=== PATIENT | male | born 1995 | race Two or more races ===

== ENCOUNTER 2020-01-12 08:51 | Outpatient (RCR) | payer OTHER, SELFPAY | END 2020-05-09 09:37 | disposition other institution (70) | LOC: HO.PTWFD 08:51 | PROVIDERS: PCP Hospitalist; Visit Provider Nurse Practitioner Family | DX: M54.5 Low back pain (principal) | CPT/HCPCS: 97110; 97112 ==

== ENCOUNTER 2020-01-13 22:11 | Emergency (ER) | payer OTHER, SELFPAY ==
[2020-01-13 22:29] VITALS: BP 141/87; PULSE 89; RESP 16; TEMP 37.6; O2SAT 98; BMI 37.5
[2020-01-13 23:25] VITALS: BP 146/89; PULSE 85; RESP 16; O2SAT 97
--- NOTE | 2020-01-13 23:43 | ED.NEUROSD ---
HPI - Neuro Symptoms/Deficit General Chief Complaint: Neuro Symptoms/Deficit Stated Complaint: numbness of arm Time Seen by Provider: 01/13/20 23:31 Source: patient Mode of arrival: ambulatory History of Present Illness HPI Narrative: patient states that dizziness with movement. Bilateral hand numbness and sweating. Onset (ago): hour(s) ( 2 hours) Timing confirmed by: spouse Severity: mild Exacerbating factors: none Related Data Previous Rx's Medication Instructions Recorded meclizine 25 mg PO DAILY PRN #10 tab 01/13/20 Allergies Allergy/AdvReac Type Severity Reaction Status Date / Time penicillin V Allergy Unknown rash Verified 01/13/20 22:29 Penicillins [PENICILLINS] Allergy Unknown RASH Verified 01/13/20 22:29 Review of Systems Review of Systems: Constitutional : No Weight loss, No Fever, No Chills, No Night Sweats, No Fatigue, No Malaise ENT/Mouth : No Hearing loss, No Ear Pain, No Nasal Congestion, No Sinus Pain, No Hoarseness, No sore throat, No Rhinorrhea, No Swallowing Difficulty Eyes: No Eye Pain, No Swelling, No Redness, No Foreign Body, No Discharge, No Vision Changes Cardiovascular : No Chest Pain, No SOB, No Dyspnea on Exertion, No Orthopnea, No Edema, No Palpitations Respiratory : No Cough, No Sputum, No Wheezing, No Smoke Exposure, No Dyspnea Gastrointestinal : No Nausea, No Vomiting, No Diarrhea, No Constipation, No abdominal Pain, No Hematochezia, No Melena Genitourinary : no irregular bleeding, No Dysuria, No Urinary Frequency, No Hematuria, No Urinary Incontinence, No Urgency, No Flank Pain, No Urinary Flow Changes, No Hesitancy Musculoskeletal : No joint pain, No Myalgias, No Joint Swelling Skin : No Skin Lesions, No rash Neuro : No Weakness, No Numbness, No current Paresthesias, No Loss of Consciousness, No Dizziness, No Headache Psych : No Anxiety/Panic, No Depression, No SI/HI/AH/VH, No Social Issues, Heme/Lymph: No Bruising, No Bleeding,No Lymphadenopathy Endocrine : No Polyuria, No Polydipsia, No Temperature Intolerance Yes all other systems are reviewed and are negative [facility] Past Medical History Attestation statement: The following information was validated with the patient. Medical History Acute Crohn's disease Arthritis Depression Eczema Scoliosis Family History Family History (Updated 01/13/20 @ 23:50 by Ata Baer DO) Other Anemia Social History Social History Alcohol intake: current Alcohol intake frequency: a few times a month Smoking Status: Never smoker Use of substances other than those prescribed or required for medical reasons: No Advance Directives: No Advance Directives Information Provided: No Physical Exam Vital Signs and I&O and Narrative: Vital Signs and I&O: Vital Signs Temp 99.6 F 01/13/20 22:29 Pulse 85 01/13/20 23:25 Resp 16 01/13/20 23:25 BP 146/89 H 01/13/20 23:25 Pulse Ox 97 01/13/20 23:25 Intake & Output 01/13/20 01/13/20 01/14/20 06:59 18:59 06:59 Weight 136.078 kg Body Mass Index 37.5 vital signs reviewed Const: Other: Appearance: Alert. Oriented X3. No acute distress. Eyes: Pupils equal, round and reactive to light. ENT: Pharynx normal. Neck: Normal inspection. Neck supple. CVS: Normal heart rate and rhythm. Pulses normal. Respiratory: No respiratory distress. Breath sounds normal. Abdomen: Soft and nontender. Skin: Skin warm and dry. Normal skin color. Normal skin turgor. Extremities: No lower extremity edema. No lower extremity edema. Neuro: Oriented X 3. No motor deficit. No sensory deficit. bilateral horizontal nystagmus General: cooperative and healthy appearing Course Reevaluation(s) Reevaluation #1: patient with positional dizziness, vertigo while in the emergency department. Will treat with p.o. meclizine. Neuro exam benign except for nystagmus. Patient low risk for brain mass Discharge Plan Discharge Clinical Impression: Benign positional vertigo Qualifiers: Laterality: bilateral Qualified Code(s): H81.13 - Benign paroxysmal vertigo, bilateral Patient Disposition: Home, Self-Care Instructions: Benign Paroxysmal Positional Vertigo (ED) Additional Instructions: Thank you for visiting the emergency department today. If your symptoms worsen or do not resolve completely please return to the emergency department immediately or call 911. if he have any questions please call your primary care physician Prescriptions: New meclizine 25 mg tablet 25 mg PO DAILY PRN (Reason: dizziness) Qty: 10 RF: 0 Referrals: Shakira Higgins NP [Primary Care Provider] - 2 days Interventions: ED Discharge Assessment Last Done: 01/14/20 00:15 Discharge Date/Time: 01/14/20 00:16
[2020-01-14] MEDS: Meclizine HCl 25 MG TABLET PO (00:13)
--- NOTE | 2020-01-14 00:15 | PC.NURSE ---
pt medicated with meclizine as charted, pt aox3, skin wd, resp reg and even, ambulating with steady gait
== END 2020-01-14 00:16 | disposition home or self-care (01) ==
PROVIDERS: Emergency Provider Emergency Medicine; PCP Hospitalist
DX: H81.13 Benign paroxysmal vertigo, bilateral (principal); K50.90 Crohn's disease, unspecified, without complications
CPT/HCPCS: 99283; 99284

== ENCOUNTER 2020-02-27 17:29 | Outpatient (REF) | payer OTHER, SELFPAY | END 2020-02-27 17:30 | disposition home or self-care (01) | LOC: HO.LAB 17:29 | PROVIDERS: Visit Provider Internal Medicine | DX: Z20.828 Contact with and (suspected) exposure to other viral communicable diseases (principal) | CPT/HCPCS: C9803; U0003 ==

== ENCOUNTER 2020-06-05 12:26 | Emergency (ER) | payer OTHER, SELFPAY ==
--- NOTE | ~2020-06-05 | US_ITS ---
EXAMINATION: US SCROTUM CLINICAL INFORMATION: Testicular pain, rule out torsion. COMPARISON: None TECHNIQUE: A sonogram of the scrotum was performed assessing jacobo-scale appearance and color Doppler flow. Spectral Doppler analysis of the arterial and venous flow were performed in the testes bilaterally. FINDINGS: RIGHT: Right testicle measures 4.6 x 2.5 x 3.1 cm, volume 18.5 mL. No focal testicular parenchymal lesions are visualized. The appendix testis is incidentally noted. Spectral Doppler analysis of the arterial and venous flow is normal in the right testis. Right epididymal head is normal in size. No right hydrocele or varicocele is seen. Right epididymal Doppler flow is normal. LEFT: Left testicle measures 4.7 x 2.3 x 3.3 cm, volume 18.8 mL. No focal testicular parenchymal lesions are visualized. The appendix testis is incidentally noted. Spectral Doppler analysis of the arterial and venous flow is normal in the left testis. Left epididymal head is normal in size. There is apparent 3 mm epididymal head cysts. No left hydrocele or varicocele is seen. Left epididymal Doppler flow is normal. US/US scrotum doppler IMPRESSION: Negative examination. No findings to suggest testicular torsion.
--- NOTE | ~2020-06-05 | US_ITS ---
EXAMINATION: US SCROTUM CLINICAL INFORMATION: Testicular pain, rule out torsion. COMPARISON: None TECHNIQUE: A sonogram of the scrotum was performed assessing jacobo-scale appearance and color Doppler flow. Spectral Doppler analysis of the arterial and venous flow were performed in the testes bilaterally. FINDINGS: RIGHT: Right testicle measures 4.6 x 2.5 x 3.1 cm, volume 18.5 mL. No focal testicular parenchymal lesions are visualized. The appendix testis is incidentally noted. Spectral Doppler analysis of the arterial and venous flow is normal in the right testis. Right epididymal head is normal in size. No right hydrocele or varicocele is seen. Right epididymal Doppler flow is normal. LEFT: Left testicle measures 4.7 x 2.3 x 3.3 cm, volume 18.8 mL. No focal testicular parenchymal lesions are visualized. The appendix testis is incidentally noted. Spectral Doppler analysis of the arterial and venous flow is normal in the left testis. Left epididymal head is normal in size. There is apparent 3 mm epididymal head cysts. No left hydrocele or varicocele is seen. Left epididymal Doppler flow is normal. US/US scrotum IMPRESSION: Negative examination. No findings to suggest testicular torsion.
[2020-06-05 12:37] VITALS: BP 144/96; PULSE 83; RESP 16; TEMP 36.3; O2SAT 98; BMI 39.9
--- NOTE | 2020-06-05 12:47 | ED.MALEGU ---
HPI - Male Genitourinary General Chief complaint: Urogenital-Male <Tang Pham NP - Last Filed: 06/05/20 15:08> Stated complaint: TESTICLE PAIN <Tang Pham NP - Last Filed: 06/05/20 15:08> Time Seen by Provider: 06/05/20 12:32 <Tang Pham NP - Last Filed: 06/05/20 15:08> Source: patient <Tang Pham NP - Last Filed: 06/05/20 15:08> Mode of arrival: ambulatory <Tang Pham NP - Last Filed: 06/05/20 15:08> Limitations: no limitations <Tang Pham NP - Last Filed: 06/05/20 15:08> History of Present Illness HPI Narrative: 24-year-old male with below noted past medical history including history of Crohn's disease, arthritis of bilateral knees, depression, eczema, scoliosis presenting with right testicular pain ongoing for the past 1 week. Denies any injury. No rash. No penile discharge. No concern for STI. No swelling. <Tang Pham NP - Last Filed: 06/05/20 15:08> MD Complaint: testicle pain <Tang Pham NP - Last Filed: 06/05/20 15:08> Onset (ago): week(s) (1 weeks ) <Tang Pham NP - Last Filed: 06/05/20 15:08> Duration: constant <Tang Pham NP - Last Filed: 06/05/20 15:08> Quality: aching <Tang Pham NP - Last Filed: 06/05/20 15:08> Exacerbating factors: none <Tang Pham NP - Last Filed: 06/05/20 15:08> Associated symptoms: Reports denies other symptoms <Tang Pham NP - Last Filed: 06/05/20 15:08> Related Data Sexually active: No <Tang Pham NP - Last Filed: 06/05/20 15:08> Home medications: Previous Rx's Medication Instructions Recorded meclizine 25 mg PO DAILY PRN #10 tab 01/13/20 cyclobenzaprine 7.5 mg tablet 7.5 mg PO TID PRN 30 Days #90 tab 01/23/20 naproxen 500 mg tablet 500 mg PO BID PRN 30 Days #90 tab 01/23/20 doxycycline hyclate 100 mg PO BID 7 Days #14 tab 06/05/20 naproxen 500 mg PO BID PRN #14 tab 06/05/20 meloxicam 15 mg tablet 15 mg PO DAILY 30 Days #30 tab 06/21/20 <Tang Pham NP - Last Filed: 06/05/20 15:08> Allergies/Adverse reactions: Allergies Allergy/AdvReac Type Severity Reaction Status Date / Time penicillin V Allergy Unknown rash Verified 06/07/20 14:03 <Tang Pham NP - Last Filed: 06/05/20 15:08> Review of Systems Review of Systems: Constitutional: No Weight loss, No Fever, No Chills, No Night Sweats, No Fatigue, No Malaise ENT/Mouth: No Hearing loss, No Ear Pain, No Nasal Congestion, No Sinus Pain, No Hoarseness, No sore throat, No Rhinorrhea, No Swallowing Difficulty Eyes: No Eye Pain, No Swelling, No Redness, No Foreign Body, No Discharge, No Vision Changes Cardiovascular: No Chest Pain, No SOB, No Dyspnea on Exertion, No Orthopnea, No Edema, No Palpitations Respiratory: No Cough, No Sputum, No Wheezing, No Dyspnea Gastrointestinal: No Nausea, No Vomiting, No Diarrhea, No Constipation, No abdominal Pain, No Hematochezia, No Melena Genitourinary: No Dysuria, No Urinary Frequency, No Hematuria, No Urinary Incontinence, No Urgency, No Flank Pain, No Urinary Flow Changes, No Hesitancy, right testicular pain as noted per HPI Musculoskeletal: No joint pain, No Myalgias, No Joint Swelling Skin: No Skin Lesions, No rash Neuro: No Weakness, No Numbness, No Paresthesias, No Loss of Consciousness, No Dizziness, No Headache Psych: No Social Issues Heme/Lymph: No Bruising, No Bleeding,No Lymphadenopathy Endocrine: No Polyuria, No Polydipsia, No Temperature Intolerance <Tang Pahm NP - Last Filed: 06/05/20 15:08> Yes all other systems are reviewed and are negative <Tang Pham NP - Last Filed: 06/05/20 15:08> [facility] Past Medical History Medical History: Medical History Acute Crohn's disease Arthritis Depression Eczema Scoliosis <Tang Pham NP - Last Filed: 06/05/20 15:08> Surgical History: Surgical History History of arthroscopy of both knees <Tang Pham NP - Last Filed: 06/05/20 15:08> Family History Family History: Family History Father No problems noted. Mother Hypertension Maternal Grandfather Diabetes Stroke Other Anemia <Tang Pham NP - Last Filed: 06/05/20 15:08> Social History Social History: Social History Alcohol intake: current Alcohol intake frequency: does not drink Smoking Status: Never smoker <Tang Pham NP - Last Filed: 06/05/20 15:08> Physical Exam Vital Signs: Vital Signs: Last Vital Signs Temp 97.3 F 06/05/20 12:37 Pulse 83 06/05/20 12:37 Resp 16 06/05/20 12:37 BP 144/96 H 06/05/20 12:37 Pulse Ox 98 06/05/20 12:37 Body Mass Index 39.9 Reviewed <Tang Pham NP - Last Filed: 06/05/20 15:08> Vital Signs: Last Vital Signs Temp 97.3 F 06/05/20 12:37 Pulse 83 06/05/20 12:37 Resp 16 06/05/20 12:37 BP 144/96 H 06/05/20 12:37 Pulse Ox 98 06/05/20 12:37 Body Mass Index 39.9 <Jose Rafael Lehman MD - Last Filed: 06/25/20 11:00> Const: General: cooperative and healthy appearing; No acute distress or intoxicated appearing <Tang Pham NP - Last Filed: 06/05/20 15:08> Nutritional Appearance: average body habitus <Tang Pham NP - Last Filed: 06/05/20 15:08> Orientation/consciousness: patient oriented x3 <Tang Pham NP - Last Filed: 06/05/20 15:08> HENMT: Head: Yes normal to inspection <[facility] Pham - Last Filed: 06/05/20 15:08> Ears: hearing grossly normal bilaterally [facility] - Last Filed: 06/05/20 15:08> Eyes: General: appearance normal, both eyes and all related structures <[facility] Pham - Last Filed: 06/05/20 15:08> Visual Weiss: normal visual weiss by confrontation <[facility] - Last Filed: 06/05/20 15:08> Neck: Neck: Yes normal visual inspection, No positive Brudzinski's sign, No positive Kernig's sign and No tender <[facility] - Last Filed: 06/05/20 15:08> Thyroid: Thyroid normal [facility] Last Filed: 06/05/20 15:08> Chest: Chest palpation & inspection: normal inspection of the chest <[facility] - Last Filed: 06/05/20 15:08> Resp: Effort & Inspection: normal respiratory effort [facility] Last Filed: 06/05/20 15:08> Cardio: Jugular venous distension: no JVD [facility] - Last Filed: 06/05/20 15:08> Rhythm: regular rhythm [facility] Last Filed: 06/05/20 15:08> Heart sounds: S1 normal heart sound present and S2 normal heart sound present <[facility] - Last Filed: 06/05/20 15:08> GI: Inspection: Yes normal to inspection <[facility] - Last Filed: 06/05/20 15:08> Percussion: Yes normal to percussion <[facility] - Last Filed: 06/05/20 15:08> Auscultation: normal bowel sounds <[facility] - Last Filed: 06/05/20 15:08> : General: Yes no CVA tenderness <[facility] - Last Filed: 06/05/20 15:08> Male General Exam: Yes normal external exam <Tangvalorie Pham NP - Last Filed: 06/05/20 15:08> Penis: normal penis <Tangvalorie Pham NP - Last Filed: 06/05/20 15:08> Scrotum: scrotum normal <Tang Pham NP - Last Filed: 06/05/20 15:08> Testes: epididymal tenderness (Very mild) on the right, no testicular swelling, no testicular tenderness, normal testicular lie and No testicular atrophy <Tang Pham NP - Last Filed: 06/05/20 15:08> Back/Spine/Pelvis: Back: no CVA tenderness <Tang Pham NP - Last Filed: 06/05/20 15:08> Skin: General skin exam: no rashes or lesions noted <Tang Pham NP - Last Filed: 06/05/20 15:08> Neuro: General: patient oriented x3 <Tang Pham NP - Last Filed: 06/05/20 15:08> Extrem: General: Yes normal to inspection <Tang Pham NP - Last Filed: 06/05/20 15:08> Course Course Course Narrative: I have reviewed the chart <Jose Rafael Lehman MD - Last Filed: 06/25/20 11:00> Reevaluation(s) Reevaluation #1: 1245 Stat testicular ultrasound ordered upon arrival. Patient taken to the department <Tang Pham NP - Last Filed: 06/05/20 15:08> MDM - Male Genitourinary MDM Narrative Medical decision making narrative: Scrotal ultrasound/Doppler unremarkable exam consistent with mild epididymitis less likely intermittent torsion. Given dose of ceftriaxone and will discharge with doxycycline. CT angio pending. Referred to Urology for follow-up. Will stain from any further sexual activity and health Center for full panel STI testing though he reports he is not active. <Tang Pham NP - Last Filed: 06/05/20 15:08> Differential Diagnosis Differential diagnosis: Likely epididymitis; Unlikely urinary tract infection, priapism, urethritis, genital herpes simplex, prostatitis, acute retention of urine and inguinal hernia <Tang Pham NP - Last Filed: 06/05/20 15:08> Medical Records Attestation: I reviewed the patient's medical records. <Tang Pham, [employer] ASSOCIATE - Last Filed: 06/05/20 15:08> Lab Data Attestation: I reviewed the patient's lab results. <Tang PhamPAT barone - Last Filed: 06/05/20 15:08> Labs: Lab Results 06/05/20 06/05/20 06/05/20 Range/Units 13:48 13:48 Unknown Urine Color YELLOW Urine Appearance CLEAR Urine pH 6.0 (5.0-8.0) Ur Specific [place] 1.025 (1.005-1.025) Urine Protein NEG (NEG-TRACE) MG/DL Urine Glucose (UA) NEG (NEG) MG/DL Urine Ketones NEG (NEG) MG/DL Urine Blood NEG (NEG) Urine Nitrite NEG (NEG) Ur Leukocyte Esterase NEG (NEG) Urine RBC 0 (0) /HPF Urine WBC 0 (0-4) /HPF Ur Squamous Epith Cells NONE /LPF Urine Bacteria NONE /LPF Chlam trachomat DNA PCR Cancelled C.trachomatis RNA (TMA) NOT DETECTED (NOT DETECTED) Chlamydia/GC Comment SEE NOTE N.gonorrhoeae DNA (PCR) Cancelled N.gonorrhoeae RNA (TMA) NOT DETECTED (NOT DETECTED) <Tang Pham NP - Last Filed: 06/05/20 15:08> Lab Results 06/05/20 06/05/20 06/05/20 Range/Units 13:48 13:48 Unknown Urine Color YELLOW Urine Appearance CLEAR Urine pH 6.0 (5.0-8.0) Ur Specific [place] 1.025 (1.005-1.025) Urine Protein NEG (NEG-TRACE) MG/DL Urine Glucose (UA) NEG (NEG) MG/DL Urine Ketones NEG (NEG) MG/DL Urine Blood NEG (NEG) Urine Nitrite NEG (NEG) Ur Leukocyte Esterase NEG (NEG) Urine RBC 0 (0) /HPF Urine WBC 0 (0-4) /HPF Ur Squamous Epith Cells NONE /LPF Urine Bacteria NONE /LPF Chlam trachomat DNA PCR Cancelled C.trachomatis RNA (TMA) NOT DETECTED (NOT DETECTED) Chlamydia/GC Comment SEE NOTE N.gonorrhoeae DNA (PCR) Cancelled N.gonorrhoeae RNA (TMA) NOT DETECTED (NOT DETECTED) <Jose Rafael Lehman MD - Last Filed: 06/25/20 11:00> Imaging Data Scrotal ultrasound/Doppler: Radiologist's impression: [address] [id number] ReportSigned Patient: Tyler MccannMR#: [id number]: 1995Acct:[id number]/Sex: 24 MADM Date: 06/05/20Loc: EDAttending Dr: Ordering Physician: Tang Pham NP Date of Service: 06/05/20 Procedure(s): US scrotum Accession Number(s): [id number] cc: Tang Pham NP~ EXAMINATION: US SCROTUM CLINICAL INFORMATION: Testicular pain, rule out torsion. COMPARISON: None TECHNIQUE: A sonogram of the scrotum was performed assessing jacobo-scale appearance and color Doppler flow. Spectral Doppler analysis of the arterial and venous flow were performed in the testes bilaterally. FINDINGS: RIGHT: Right testicle measures 4.6 x 2.5 x 3.1 cm, volume 18.5 mL. No focal testicular parenchymal lesions are visualized. The appendix testis is incidentally noted. Spectral Doppler analysis of the arterial and venous flow is normal in the right testis. Right epididymal head is normal in size. No right hydrocele or varicocele is seen. Right epididymal Doppler flow is normal. LEFT: Left testicle measures 4.7 x 2.3 x 3.3 cm, volume 18.8 mL. No focal testicular parenchymal lesions are visualized. The appendix testis is incidentally noted. Spectral Doppler analysis of the arterial and venous flow is normal in the left testis. Left epididymal head is normal in size. There is apparent 3 mm epididymal head cysts. No left hydrocele or varicocele is seen. Left epididymal Doppler flow is normal. US/US scrotum IMPRESSION: Negative examination. No findings to suggest testicular torsion. Dictated By:ROSALBA ESTRADA MDSigned By:<Electronically signed by ROSALBA ESTRADA MD in OV>06/05/20 1327 DD/ 1242TD/TT: Manager User Interface: TF <Tang Pham NP - Last Filed: 06/05/20 15:08> Discharge Plan Discharge Clinical Impression: Epididymitis <Tang Pham NP - Last Filed: 06/05/20 15:08> Patient Disposition: Home, Self-Care <Tang Pham NP - Last Filed: 06/05/20 15:08> Instructions: Epididymitis (ED) <Tang Pham NP - Last Filed: 06/05/20 15:08> Prescriptions: New doxycycline hyclate 100 mg tablet 100 mg PO BID 7 Days Qty: 14 RF: 0 naproxen 500 mg tablet 500 mg PO BID PRN (Reason: pain) Qty: 14 RF: 0 No Action meclizine 25 mg tablet 25 mg PO DAILY PRN (Reason: dizziness) Qty: 10 RF: 0 naproxen [Naprosyn] 500 mg tablet 500 mg PO BID PRN (Reason: pain) 30 Days Qty: 90 RF: 1 cyclobenzaprine 7.5 mg tablet 7.5 mg PO TID PRN (Reason: muscle spasm) 30 Days Qty: 90 RF: 1 meloxicam [Mobic] 15 mg tablet 15 mg PO DAILY 30 Days Qty: 30 RF: 0 <Tang hPam NP - Last Filed: 06/05/20 15:08> Referrals: Osvaldo Yung MD [Physician] - 1 week Shakira Higgins NP [Primary Care Provider] - 1 week <Tang Pham NP - Last Filed: 06/05/20 15:08> Interventions: ED Discharge Assessment Last Done: 06/05/20 15:14 <Tang Pham NP - Last Filed: 06/05/20 15:08> Discharge Date/Time: 06/05/20 15:14 <Tang Pham NP - Last Filed: 06/05/20 15:08>
--- NOTE | 2020-06-05 13:36 | PC.NURSE ---
BROUGHT TO ED 18H UPON RETURN FROM US DEPT, WATER GIVEN, AWAITING URINE SPECIMENS
[2020-06-05 14:22] LABS: Glucose Urine UA NEG (NEG); Leukocyte Esterase Urine NEG (NEG); Nitrite Urine NEG (NEG); Specific Gravity - Urine 1.025 (1.005-1.025); Urine Blood NEG (NEG); Urine Ketones NEG (NEG); Urine Protein NEG (NEG-TRACE)
[2020-06-05 14:25] LABS: Appearance Urine CLEAR; Color Urine YELLOW
[2020-06-05 14:31] LABS: RBC Urine 0 /HPF (0); WBC Urine 0 /HPF (0-4)
[2020-06-05] MEDS: cefTRIAXone sodium 500 MG, Lidocaine HCl 1 % MPF 1 ML IM (15:02)
[2020-06-06 16:12] LABS: C. trachomatis RNA TMA NOT DETECTED (NOT DETECTED); N. gonorrhoeae RNA TMA NOT DETECTED (NOT DETECTED)
== END 2020-06-05 15:14 | disposition home or self-care (01) ==
PROVIDERS: Nurse Practitioner Primary Care; Emergency Provider Emergency Medicine; PCP Hospitalist
DX: N45.1 Epididymitis (principal); N50.811 Right testicular pain; Z79.899 Other long term (current) drug therapy
CPT/HCPCS: 36415; 76870; 81001; 87491; 87591; 93975; 96372; 99283; J0696

== ENCOUNTER → 2020-06-21 12:57 | Outpatient (BNVA) | payer OTHER, SELFPAY | PROVIDERS: PCP Hospitalist; Visit Provider Urology | DX: N50.811 Right testicular pain (principal) | CPT/HCPCS: 99202 ==

== ENCOUNTER 2020-06-26 11:44 | Outpatient (REF) | payer OTHER, SELFPAY ==
[2020-06-26 12:52] LABS: Hematocrit 48.7 % (42-52); Mean Corpuscular HGB Conc 32.9 g/dl (31.0-36.0); Mean Corpuscular Hemoglobin 29.5 pg (27.0-33.0); Mean Corpuscular Volume 89.9 fL (80-98); Mean Platelet Volume 10.2 fL (9.4-12.4); Platelet Count 297 X10*3/uL (160-400); Red Blood Count 5.42 X10*6/uL (4.60-5.80); Red Cell Distribution Width 12.3 % (11.0-16.0); White Blood Count 7.8 X10*3/uL (4.8-10.8)
[2020-06-26 13:16] LABS: Alanine Aminotransferase 50 U/L (0-40); Albumin Level 4.9 g/dL (3.5-5.0); Alkaline Phosphatase 62 U/L (39-117); Anion Gap 15 (12-20); Aspartate Amino Transferase 22 U/L (5-37); Bilirubin Direct 0.3 mg/dL (0.0-0.5); Bilirubin Total 0.8 mg/dL (0.0-1.0); Blood Urea Nitrogen 12 mg/dL (9-16); Calcium 9.5 mg/dL (8.4-10.2); Carbon Dioxide 24 mmol/L (22-29); Chloride 107 mmol/L (96-108); Cholesterol 163 mg/dL; Estimated Glomerular Filt Rate > 60; Glucose Fasting 93 mg/dL (60-99); HDL Cholesterol 41 mg/dL; LDL Cholesterol Calculated 93 mg/dl; Potassium 4.8 mmol/L (3.3-5.1); Sodium 141 mmol/L (135-145); Total Protein 7.5 g/dL (6.5-8.0); Triglycerides 148 mg/dL
[2020-06-26 13:50] LABS: TSH reflex Free T4 1.13 uIU/mL (0.32-4.0)
== END 2020-06-26 11:45 | disposition home or self-care (01) ==
LOC: HO.LAB 11:44
PROVIDERS: PCP Hospitalist; Visit Provider Hospitalist
DX: Z00.00 Encounter for general adult medical examination without abnormal findings (principal)
CPT/HCPCS: 36415; 80048; 80061; 80076; 84443; 85027

== ENCOUNTER 2020-10-30 12:44 | Emergency (ER) | payer OTHER, SELFPAY ==
[2020-10-30 13:33] VITALS: BP 151/99; PULSE 89; RESP 16; TEMP 37.2; O2SAT 96; BMI 39.6
--- NOTE | 2020-10-30 15:47 | ED_ITS ---
HPI - General Adult General Chief complaint: Back Pain/Injury Stated complaint: back pain Time Seen by Provider: 10/30/20 15:47 Related Data Home Medications Medication Instructions Recorded Confirmed naproxen 250 mg tablet 125 mg PO ONCE PRN tab 10/02/20 Previous Rx's Medication Instructions Recorded clonidine HCl 0.1 mg tablet 0.1 mg PO BID #60 tab 10/25/20 cyclobenzaprine 10 mg PO BID PRN #10 tab 10/30/20 ibuprofen 800 mg PO Q8H PRN #20 tab 10/30/20 Allergies Allergy/AdvReac Type Severity Reaction Status Date / Time penicillin V Allergy Intermediate rash Verified 10/30/20 13:39 Review of Systems Review of Systems: Constitutional : No Weight loss, No Fever, No Chills, No Night Sweats, No Fatigue, No Malaise ENT/Mouth : No Hearing loss, No Ear Pain, No Nasal Congestion, No Sinus Pain, No Hoarseness, No sore throat, No Rhinorrhea, No Swallowing Difficulty Eyes: No Eye Pain, No Swelling, No Redness, No Foreign Body, No Discharge, No Vision Changes Cardiovascular : No Chest Pain, No SOB, No Dyspnea on Exertion, No Orthopnea, No Edema, No Palpitations Respiratory : No Cough, No Sputum, No Wheezing, No Smoke Exposure, No Dyspnea Gastrointestinal : No Nausea, No Vomiting, No Diarrhea, No Constipation, No abdominal Pain, No Hematochezia, No Melena Genitourinary : no irregular bleeding, No Dysuria, No Urinary Frequency, No Hematuria, No Urinary Incontinence, No Urgency, No Flank Pain, No Urinary Flow Changes, No Hesitancy Musculoskeletal : No joint pain, No Myalgias, No Joint Swelling, low back pain Skin : No Skin Lesions, No rash Neuro : No Weakness, No Numbness, No Paresthesias, No Loss of Consciousness, No Dizziness, No Headache Psych : No Anxiety/Panic, No Depression, No SI/HI/AH/VH, No Social Issues, Heme/Lymph: No Bruising, No Bleeding,No Lymphadenopathy Endocrine : No Polyuria, No Polydipsia, No Temperature Intolerance Yes all other systems are reviewed and are negative [facility] Past Medical History Medical History Acute Crohn's disease Arthritis Depression Eczema Scoliosis Surgical History History of arthroscopy of both knees Family History Family History Father No problems noted. Mother Hypertension Maternal Grandfather Diabetes Stroke Other Anemia Social History Social History Housing: House Alcohol intake: current Alcohol intake frequency: does not drink Patient Tobacco Use Status: Former Tobacco user e-Cigarette/Vaping Use: Never Used Advance Directives: No Advance Directives Information Provided: No Current occupational status: unemployed Physical Exam Vital Signs: Vital Signs: Last Vital Signs Temp 99.0 F 10/30/20 13:33 Pulse 89 10/30/20 13:33 Resp 16 10/30/20 13:33 BP 151/99 H 10/30/20 13:33 Pulse Ox 96 10/30/20 13:33 Body Mass Index 39.6 Const: General: healthy appearing, no acute distress and well developed Nutritional Appearance: well nourished Orientation/consciousness: patient oriented x3 Neck: Neck: Yes normal visual inspection, Yes full ROM and Yes trachea midline Thyroid: Thyroid normal Resp: Auscultation: clear to auscultation bilaterally Cardio: Rate: regular rate Rhythm: regular rhythm GI: Inspection: Yes normal to inspection and No distended Palpation (GI): No hepatosplenomegaly present Auscultation: normal bowel sounds : General: Yes no CVA tenderness Back/Spine/Pelvis: Back: no CVA tenderness Cervical Spine: cervical ROM normal and No cervical muscular tenderness Thoracic/Lumbar Spine: thoracic and lumbar spine normal to inspection and other ( low paraspinal muscle tenderness bilaterally) Skin: General skin exam: elasticity normal, turgor normal and dry skin Neuro: General: patient oriented x3 Course Course Course Narrative: 25-year-old male is here today for complaining of lower back pain. Patient reports that when he was bending over yesterday taking trade out of the open when he has to that he developed low back pain. Denies any radiation. Pain in paraspinal region bilaterally L1 area. I will treat him with baclofen and ibuprofen. Patient reports that he tried cyclobenzaprine in the past and has not worked. Reevaluation(s) Reevaluation #1: Patient reports that he has no improvement from baclofen or ibuprofen. I will give him oxycodone. Reevaluation #2: Patient will be sent home to follow-up with PCP. Recommendation of physical therapy to strengthen his back. Rest, will order him cyclobenzaprine. Patient verbalizes understanding and is agreeable to plan of care. He was given the opportunity to ask questions and all questions answered Discharge Plan Discharge Clinical Impression: Strain of lumbar region Patient Disposition: Home, Self-Care Instructions: Back Pain (ED) Additional Instructions: You were seen here today after sustaining low back injury. You were given mass all relaxer and anti-inflammatory medication as well as pain medication. You will be sent home with it anti-inflammatory pain medication as well as medication to help you with your muscle spasms. Please make sure your not driving when you taking this medication. Please follow-up with you PCP in 2-3 days. You will need physical therapy to help you. Please apply ice for the next 3 days to affected area. Prescriptions: New ibuprofen 800 mg tablet 800 mg PO Q8H PRN (Reason: pain) Qty: 20 RF: 0 cyclobenzaprine 10 mg tablet 10 mg PO BID PRN (Reason: muscle spasm) Qty: 10 RF: 0 No Action clonidine HCl 0.1 mg tablet 0.1 mg PO BID Qty: 60 RF: 0 naproxen 250 mg tablet 125 mg PO ONCE PRNRF: 0 Interventions: ED Discharge Assessment Last Done: 10/30/20 17:35 Discharge Date/Time: 10/30/20 17:37
[2020-10-30] MEDS: Baclofen 10 MG TABLET PO (16:00)
[2020-10-30] MEDS: Ibuprofen 800 MG TABLET PO (16:00)
[2020-10-30] MEDS: oxyCODONE HCl Immed Release 5 MG TABLET PO (17:34)
== END 2020-10-30 17:37 | disposition home or self-care (01) ==
PROVIDERS: Emergency Provider Emergency Medicine; PCP Hospitalist
DX: S39.012A Strain of muscle, fascia and tendon of lower back, initial encounter (principal); X58.XXXA Exposure to other specified factors, initial encounter; Y93.9 Activity, unspecified; Y92.9 Unspecified place or not applicable; Y99.9 Unspecified external cause status
CPT/HCPCS: 99283

== ENCOUNTER → 2020-12-30 10:12 | Outpatient (BNVA) | payer OTHER, SELFPAY | PROVIDERS: PCP Hospitalist; Visit Provider Anesthesiology | DX: M21.061 Valgus deformity, not elsewhere classified, right knee (principal); M21.062 Valgus deformity, not elsewhere classified, left knee; M47.817 Spondylosis without myelopathy or radiculopathy, lumbosacral region | CPT/HCPCS: 99202 ==

== ENCOUNTER → 2021-02-20 09:29 | Outpatient (BNVA) | payer OTHER, SELFPAY | PROVIDERS: PCP Hospitalist; Visit Provider Urology | DX: R10.31 Right lower quadrant pain (principal) | CPT/HCPCS: 99212 ==

== ENCOUNTER 2021-02-24 21:31 | Inpatient (IN) | payer OTHER, SELFPAY ==
--- NOTE | ~2021-02-24 | CT_ITS ---
EXAMINATION: CT ABDOMEN AND PELVIS WITH CONTRAST CLINICAL INFORMATION: Periumbilical pain, history of Crohn's COMPARISON: 06/17/2017 TECHNIQUE: Multidetector volumetric images were obtained from the superior aspect of the liver through the pubic symphysis following administration 100 mL of Omnipaque 350 intravenous contrast. Sagittal and coronal reformatted images were obtained on the technologist's workstation. Oral contrast: No This CT examination was performed using dose optimization techniques as appropriate, variously including the following: *Automated exposure control *Adjustment of mA and/or kV according to patient size (this includes techniques or standardized protocols for targeted exams where dose is matched to indication/reason for exam; i.e. extremities or head) *Use of iterative reconstruction technique DLP: 11:30 mGy-cm FINDINGS: LUNG BASES: The visualized lung bases are unremarkable. LIVER, GALLBLADDER, AND BILIARY TREE: The liver is normal in size, shape, and attenuation. No focal hepatic lesion or biliary ductal dilatation is present. The gallbladder is unremarkable with no evidence of radiopaque gallstones, gallbladder wall thickening, or obvious pericholecystic inflammatory changes. PANCREAS: Unremarkable. SPLEEN: Unremarkable. ADRENAL GLANDS: Unremarkable. KIDNEYS AND URETERS: The kidneys are normal in size, shape, and attenuation. No hydronephrosis, hydroureter, or obstructing calculi seen. No perinephric stranding. BLADDER: Unremarkable. GASTROINTESTINAL TRACT: There are a few mildly prominent, fecalized loops of small bowel in the right lower quadrant with adjacent mesenteric stranding and small amount of fluid, suspicious for sequelae of bowel obstruction. Large bowel appears unremarkable. The appendix is unremarkable. No free air is seen. ABDOMINAL WALL: No significant hernia is appreciated. LYMPH NODES: Scattered mesenteric and retroperitoneal subcentimeter lymph nodes are present, without significant enlargement by size criteria. VASCULAR: Unremarkable. PELVIC VISCERA: Unremarkable. Trace pelvic free fluid noted. OSSEOUS STRUCTURES: Unremarkable. CT/CT abdomen pelvis w con IMPRESSION: Few mildly prominent, fecalized small bowel loops in the right lower quadrant with adjacent mesenteric stranding and small amount of free fluid, suspicious for sequelae of small bowel obstruction.
[2021-02-24 21:42] VITALS: BP 159/98; PULSE 84; RESP 20; TEMP 36.8; O2SAT 98; BMI 37.5
[2021-02-25] VITALS (10 sets, daily range): BP systolic 133–148; BP diastolic 59–93; PULSE 66–84; RESP 14–18; TEMP 36.9–37.4; O2SAT 96–98; BMI 41.0
--- NOTE | 2021-02-25 00:29 | ED_ITS ---
HPI - Abdominal Pain General Chief Complaint: Abdominal Pain Stated Complaint: abdominal pain Time Seen by Provider: 02/25/21 00:26 Source: patient Mode of arrival: ambulatory History of Present Illness HPI narrative: 25-year-old male with history of Crohn's presents with onset of periumbilical pain that has remained localized without radiation and is crampy/sharp in nature with nausea but no vomiting associated with intermittent episodes of sweating and dizziness. Denies any urinary symptoms or obstipation. Related Data Previous Rx's Medication Instructions Recorded cyclobenzaprine 10 mg tablet 10 mg PO BID PRN #10 tab 10/30/20 ibuprofen 800 mg tablet 800 mg PO Q8H PRN #20 tab 10/30/20 bupropion HCl 75 mg tablet 150 mg PO BID 30 Days #120 tab 12/17/20 meloxicam 15 mg tablet (Mobic) 15 mg PO DAILY 30 Days #30 tab 02/20/21 Allergies Allergy/AdvReac Type Severity Reaction Status Date / Time penicillin V Allergy Intermediate rash Verified 02/24/21 21:42 Review of Systems Review of Systems Pertinent positives and negatives as stated in HPI 10 point review of systems is otherwise negative. Physical Exam Vital Signs: Vital Signs: Last Vital Signs Temp 98.2 F 02/24/21 21:42 Pulse 76 02/25/21 02:47 Resp 18 02/25/21 02:47 BP 137/59 L 02/25/21 02:47 Pulse Ox 97 02/25/21 02:47 Body Mass Index 37.5 VITAL SIGNS: Reviewed. GENERAL: Well developed, well nourished, in no acute distress. HEAD: Normocephalic/atraumatic EYES: PERRLA, EOMI OROPHARYNX: no oral lesions noted, posterior pharynx clear NECK: Supple, no adenopathy LUNGS: Normal breath sounds. No adventitious sounds or accessory muscle use. SpO2<97> CARDIOVASCULAR: Regular rate and rhythm without noted murmurs ABDOMEN: Obese, Soft, tenderness in periumbilical and mildly in right lower quadrant without rebound, non-distended with hypoactive bowel sounds. NEUROLOGIC: Alert and oriented x 4. Course Course Course Narrative: 25-year-old male with history and clinical presentation suspicious for Crohn's flare/SBO and less likely felt to be umbilical hernia. On review of all investigations evidence to suggest Crohn's flare with dilated small bowel loops and leukocytosis with continued pain. 0335: I discussed this case with surgery, who recommends medical management. 0344: And discussed the case with Dr. Khan recommends clear liquid diet, antibiotics and he will see the patient morning. If patient is unable to heath erate clear liquids than patient should be shifted to an NPO diet. I discussed the case with the inpatient hospitalist who accepts admission. MDM - Abdominal Pain Lab Data Result diagrams: 02/25/21 01:00 02/25/21 01:00 Labs: Lab Results 02/25/21 02/25/21 02/25/21 Range/Units 00:50 01:00 01:00 WBC 13.9 H (4.8-10.8) X10*3/uL RBC 6.00 H (4.60-5.80) X10*6/uL Hgb 17.9 (14.0-18.0) g/dl Hct 53.6 H (42.0-52.0) % MCV 89.3 (80.0-98.0) fL MCH 29.8 (27.0-33.0) pg MCHC 33.4 (31.0-36.0) g/dl RDW 12.6 (11.0-16.0) % Plt Count 284 (160-400) X10*3/uL MPV 9.7 (9.4-12.4) fL Immature Gran % (Auto) 0.4 (0.0-0.4) % Neut % (Auto) 85.7 H (45-73) % Lymph % (Auto) 8.7 L (20-40) % [place] % (Auto) 4.8 (2-11) % Eos % (Auto) 0.1 (0-4) % Baso % (Auto) 0.3 (0-2) % Lymph # (Auto) 1.2 (1.2-4.9) X10*3/uL [place] # (Auto) 0.7 (0.1-1.2) X10*3/uL Eos # (Auto) 0.0 (0.0-0.4) X10*3/uL Baso # (Auto) 0.0 (0.0-0.2) X10*3/uL Abs Immat Gran (auto) 0.05 H (0.00-0.03) X10*3/uL Absolute Neuts (auto) 11.9 H (2.0-8.3) x10*3/uL Absolute Nucleated RBC 0.000 (0.0-0.012) X10*3/uL Nucleated RBC % (auto) 0.0 (0.0-0.2) /100WBC Sodium 138 (135-145) mmol/L Potassium 4.2 (3.3-5.1) mmol/L Chloride 105 (96-108) mmol/L Carbon Dioxide 22 (22-29) mmol/L Anion Gap 15 (12-20) BUN 9 (9-16) mg/dL Creatinine 0.83 (0.5-1.4) mg/dL Estim Creat Clear Calc 202.3 Estimated GFR > 60 Random Glucose 110 (60-115) mg/dL Lactic Acid (0.5-2.0) mmol/L Calcium 9.8 (8.4-10.2) mg/dL Total Bilirubin 0.6 (0.0-1.0) mg/dL AST 23 (5-37) U/L ALT 49 H (0-40) U/L Alkaline Phosphatase 71 (39-117) U/L Total Protein 8.3 H (6.5-8.0) g/dL Albumin 5.2 H (3.5-5.0) g/dL Urine Color YELLOW Urine Appearance CLEAR Urine pH 6.0 (5.0-8.0) Ur Specific [place] >= 1.030 H (1.005-1.025) Urine Protein TRACE (NEG-TRACE) MG/DL Urine Glucose (UA) NEG (NEG) MG/DL Urine Ketones NEG (NEG) MG/DL Urine Blood NEG (NEG) Urine Nitrite NEG (NEG) Ur Leukocyte Esterase NEG (NEG) 02/25/21 Range/Units 01:03 WBC (4.8-10.8) X10*3/uL RBC (4.60-5.80) X10*6/uL Hgb (14.0-18.0) g/dl Hct (42.0-52.0) % MCV (80.0-98.0) fL MCH (27.0-33.0) pg MCHC (31.0-36.0) g/dl RDW (11.0-16.0) % Plt Count (160-400) X10*3/uL MPV (9.4-12.4) fL Immature Gran % (Auto) (0.0-0.4) % Neut % (Auto) (45-73) % Lymph % (Auto) (20-40) % [place] % (Auto) (2-11) % Eos % (Auto) (0-4) % Baso % (Auto) (0-2) % Lymph # (Auto) (1.2-4.9) X10*3/uL [place] # (Auto) (0.1-1.2) X10*3/uL Eos # (Auto) (0.0-0.4) X10*3/uL Baso # (Auto) (0.0-0.2) X10*3/uL Abs Immat Gran (auto) (0.00-0.03) X10*3/uL Absolute Neuts (auto) (2.0-8.3) x10*3/uL Absolute Nucleated RBC (0.0-0.012) X10*3/uL Nucleated RBC % (auto) (0.0-0.2) /100WBC Sodium (135-145) mmol/L Potassium (3.3-5.1) mmol/L Chloride (96-108) mmol/L Carbon Dioxide (22-29) mmol/L Anion Gap (12-20) BUN (9-16) mg/dL Creatinine (0.5-1.4) mg/dL Estim Creat Clear Calc Estimated GFR Random Glucose (60-115) mg/dL Lactic Acid 1.6 (0.5-2.0) mmol/L Calcium (8.4-10.2) mg/dL Total Bilirubin (0.0-1.0) mg/dL AST (5-37) U/L ALT (0-40) U/L Alkaline Phosphatase (39-117) U/L Total Protein (6.5-8.0) g/dL Albumin (3.5-5.0) g/dL Urine Color Urine Appearance Urine pH (5.0-8.0) Ur Specific [place] (1.005-1.025) Urine Protein (NEG-TRACE) MG/DL Urine Glucose (UA) (NEG) MG/DL Urine Ketones (NEG) MG/DL Urine Blood (NEG) Urine Nitrite (NEG) Ur Leukocyte Esterase (NEG) Discharge Plan Discharge Clinical Impression: Crohn's disease, Abdominal pain Patient Disposition: Admitted As Inpatient Prescriptions: No Action bupropion HCl 75 mg tablet 150 mg PO BID 30 Days Qty: 120 RF: 0 ibuprofen 800 mg tablet 800 mg PO Q8H PRN (Reason: pain) Qty: 20 RF: 0 cyclobenzaprine 10 mg tablet 10 mg PO BID PRN (Reason: muscle spasm) Qty: 10 RF: 0 meloxicam [Mobic] 15 mg tablet 15 mg PO DAILY 30 Days Qty: 30 RF: 0 PMFSH Past Medical History Source: nursing notes reviewed Medical History Acquired genu valgum of both knees Acute Crohn's disease Arthritis Depression Eczema Scoliosis Spondylosis of lumbosacral spine without myelopathy Surgical History History of arthroscopy of both knees Family History Family History Father No problems noted. Mother Hypertension Maternal Grandfather Diabetes Stroke Other Anemia Social History Social History Housing: House Alcohol intake: current Alcohol intake frequency: holidays/special occasions only Patient Tobacco Use Status: Former Tobacco user e-Cigarette/Vaping Use: Never Used Use of substances other than those prescribed or required for medical reasons: No Advance Directives: No Advance Directives Information Provided: Yes Current occupational status: unemployed
[2021-02-25 00:59] LABS: Appearance Urine CLEAR; Color Urine YELLOW; Glucose Urine UA NEG (NEG); Leukocyte Esterase Urine NEG (NEG); Nitrite Urine NEG (NEG); Specific Gravity - Urine >= 1.030 (1.005-1.025); Urine Blood NEG (NEG); Urine Ketones NEG (NEG); Urine Protein TRACE MG/DL (NEG-TRACE)
[2021-02-25 01:04] LABS: MANUAL DIFF FLAG NO
[2021-02-25 01:06] LABS: Basophils Percent Auto 0.3 % (0-2); Eosinophils Percent Auto 0.1 % (0-4); Hematocrit 53.6 % (42.0-52.0); Hemoglobin 17.9 g/dl (14.0-18.0); Imm Gran Abs Auto 0.05 X10*3/uL (0.00-0.03); Imm Gran Pct Auto 0.4 % (0.0-0.4); Lymphocytes Absolute Auto 1.2 X10*3/uL (1.2-4.9); Lymphocytes Percent Auto 8.7 % (20-40); Mean Corpuscular HGB Conc 33.4 g/dl (31.0-36.0); Mean Corpuscular Hemoglobin 29.8 pg (27.0-33.0); Mean Corpuscular Volume 89.3 fL (80.0-98.0); Mean Platelet Volume 9.7 fL (9.4-12.4); Monocytes Absolute Auto 0.7 X10*3/uL (0.1-1.2); Monocytes Percent Auto 4.8 % (2-11); Neutrophils Absolute Auto 11.9 x10*3/uL (2.0-8.3); Neutrophils Percent Auto 85.7 % (45-73); Platelet Count 284 X10*3/uL (160-400); Red Cell Distribution Width 12.6 % (11.0-16.0); White Blood Count 13.9 X10*3/uL (4.8-10.8)
[2021-02-25] MEDS: 0.9 % Sodium Chloride 1,000 ML 999 ML IV (01:07)
[2021-02-25] MEDS: Ketorolac Tromethamine 15 MG/ML VIAL IVPUSH (01:07)
--- NOTE | 2021-02-25 01:08 | PC.NURSE ---
pt a&o, no sob or chest pain. pt complaining of abd pain, started earlier this evening. no n/v. regular bowel movement. labs and UA collected and sent. Iv placed in left Ac.
[2021-02-25 01:22] LABS: Lactic Acid 1.6 mmol/L (0.5-2.0)
[2021-02-25 01:24] LABS: Alanine Aminotransferase 49 U/L (0-40); Albumin Level 5.2 g/dL (3.5-5.0); Alkaline Phosphatase 71 U/L (39-117); Anion Gap 15 (12-20); Aspartate Amino Transferase 23 U/L (5-37); Bilirubin Total 0.6 mg/dL (0.0-1.0); Blood Urea Nitrogen 9 mg/dL (9-16); Calcium 9.8 mg/dL (8.4-10.2); Carbon Dioxide 22 mmol/L (22-29); Chloride 105 mmol/L (96-108); Creatinine Clr Calc Pharmacy 202.3; Estimated Glomerular Filt Rate > 60; Glucose Random 110 mg/dL (60-115); Potassium 4.2 mmol/L (3.3-5.1); Sodium 138 mmol/L (135-145); Total Protein 8.3 g/dL (6.5-8.0)
[2021-02-25] MEDS: iohexoL 350 MG/ML 100 ML INFUS..BTL IV (01:58)
--- NOTE | 2021-02-25 03:12 | PC.NURSE ---
pt is resting watching tv. no apparent distress at this time. no n/v.
[2021-02-25] MEDS: HYDROmorphone HCl 0.5 MG/0.5 ML SYRINGE 0.25 MG IVPUSH (03:38)
[2021-02-25 03:50] LABS: COVID-19 Test Negative (Negative)
[2021-02-25] MEDS: cefTRIAXone sodium 1 GM in 0.9 % Sodium Chloride 50 ML IV (03:54)
--- NOTE | 2021-02-25 03:58 | PC.NURSE ---
medicated per order.
[2021-02-25] MEDS: metroNIDAZOLE/NS 500 MG/100 ML PIGGYBACK 100 MG IV (04:22)
--- NOTE | 2021-02-25 05:57 | P.HPHOSP_ITS ---
History of Present Illness Date of Service: 02/25/21 Chief Complaint: Abdominal pain This is a 25-year-old male with past medical history of Crohn's disease who presents to the hospital with abdominal pain. Patient reports the abdominal pain started yesterday, localized to right above the umbilicus, pain is 10/10, nonradiating, no alleviating or exacerbating factors, denies any nausea vomiting, reports last BM was 10:00 a.m. the day of, he is currently not passing any gas. Reports that he was in good health prior to this. He denies any chest pain, no urinary symptoms, no lower extremity edema, no headache or change in vision, no numbness tingling or weakness. On arrival to the ED hemodynamically stable with no significant abnormal vitals Labs on arrival significant for WBC count of 13.9, ALT of 49, otherwise unremarkable Abdominal pelvic few mildly prominent fecalized small bowel loops in right lower quadrant with adjacent mesenteric stranding and small amount of free fluid suspicious for sequelae of small-bowel obstruction General surgery as well as GI were consulted by the ED physician, recommended admission, and IV antibiotics. Review of Systems Review of Systems: Yes all other systems are reviewed and are negative [facility] Medical History Acquired genu valgum of both knees Acute Crohn's disease Arthritis Depression Eczema Scoliosis Spondylosis of lumbosacral spine without myelopathy Family History Father No problems noted. Mother Hypertension Maternal Grandfather Diabetes Stroke Other Anemia Surgical History History of arthroscopy of both knees Social History Housing: House Alcohol intake: current Alcohol intake frequency: holidays/special occasions only Patient Tobacco Use Status: Former Tobacco user e-Cigarette/Vaping Use: Never Used Use of substances other than those prescribed or required for medical reasons: No Advance Directives: No Advance Directives Information Provided: Yes Current occupational status: unemployed Meds Allergies Allergy/AdvReac Type Severity Reaction Status Date / Time penicillin V Allergy Intermediate rash Verified 02/24/21 21:42 Active Medications: Current Medications Pharmacy Consult (Consult Rx Perform Med Rec) 1 each MISCELLANE ONCE PRN PRN Reason: Consult order Physical Exam Vital Signs and Narrative: Vital Signs: Last Vital Signs Temp 98.2 F 02/24/21 21:42 Pulse 75 02/25/21 04:25 Resp 16 02/25/21 04:25 BP 133/78 02/25/21 04:25 Pulse Ox 97 02/25/21 02:47 Body Mass Index 37.5 Const: General: cooperative and no acute distress Or ientation/consciousness: patient oriented x3 Eyes: General: appearance normal, both eyes and all related structures Pup ils: Equal, round and reactive pupils present Resp: Effort & Inspection: normal respiratory effort Auscultation: clear to auscultation bilaterally Cardio: Rate: regular rate Rhythm: regular rhythm GI: Other: Abdomen is soft, no rebound, no guarding, mild tenderness on deep palpation Palpation (GI): Soft to palpation Skin: General skin exam: no rashes or lesions noted Neuro: General: patient oriented x3 Cranial nerves: Yes Equal, round and reactive pupils present Cognition (Neuro): normal cognition Extrem: General: Yes normal to inspection and Yes no pedal edema Results Labs CBC and Chem 7: 02/25/21 01:00 02/25/21 01:00 Labs: Laboratory Results - last 24 hr 02/25/21 02/25/21 02/25/21 00:50 01:00 01:00 MCV 89.3 MCH 29.8 MCHC 33.4 RDW 12.6 Plt Count 284 MPV 9.7 Immature Gran % (Auto) 0.4 Neut % (Auto) 85.7 H Lymph % (Auto) 8.7 L [place] % (Auto) 4.8 Eos % (Auto) 0.1 Baso % (Auto) 0.3 Lymph # (Auto) 1.2 [place] # (Auto) 0.7 Eos # (Auto) 0.0 Baso # (Auto) 0.0 Abs Immat Gran (auto) 0.05 H Absolute Neuts (auto) 11.9 H Absolute Nucleated RBC 0.000 Nucleated RBC % (auto) 0.0 Anion Gap 15 Estim Creat Clear Calc 202.3 Estimated GFR > 60 Random Glucose 110 Lactic Acid Calcium 9.8 Total Bilirubin 0.6 AST 23 ALT 49 H Alkaline Phosphatase 71 Total Protein 8.3 H Albumin 5.2 H Urine Color YELLOW Urine Appearance CLEAR Urine pH 6.0 Ur Specific [place] >= 1.030 H Urine Protein TRACE Urine Glucose (UA) NEG Urine Ketones NEG Urine Blood NEG Urine Nitrite NEG Ur Leukocyte Esterase NEG COVID-19 (AMY) COVID-19 Clin Com 02/25/21 02/25/21 01:03 03:21 MCV MCH MCHC RDW Plt Count MPV Immature Gran % (Auto) Neut % (Auto) Lymph % (Auto) [place] % (Auto) Eos % (Auto) Baso % (Auto) Lymph # (Auto) [place] # (Auto) Eos # (Auto) Baso # (Auto) Abs Immat Gran (auto) Absolute Neuts (auto) Absolute Nucleated RBC Nucleated RBC % (auto) Anion Gap Estim Creat Clear Calc Estimated GFR Random Glucose Lactic Acid 1.6 Calcium Total Bilirubin AST ALT Alkaline Phosphatase Total Protein Albumin Urine Color Urine Appearance Urine pH Ur Specific [place] Urine Protein Urine Glucose (UA) Urine Ketones Urine Blood Urine Nitrite Ur Leukocyte Esterase COVID-19 (AMY) Negative COVID-19 Clin Com See Note Imaging Radiologist's Impressions: Impressions Abdomen/Pelvis CT 02/25/21 01:16 IMPRESSION: Few mildly prominent, fecalized small bowel loops in the right lower quadrant with adjacent mesenteric stranding and small amount of free fluid, suspicious for sequelae of small bowel obstruction. Assessment and Plan (1) Crohn's disease: Status: Acute (2) Abdominal pain: Status: Acute (3) Small bowel obstruction: Status: Acute 25-year-old male with past medical history of Crohn's disease presents the hospital with abdominal pain found to have Crohn's flare as well as sequelae of small bowel obstruction # abdominal pain - most likely multifactorial secondary to small-bowel obstruction as well as Crohn's flare - last BM yesterday - CT abdomen findings as above - GI recommends IV antibiotics with no steroids at this time - will start him on Flagyl as well as ceftriaxone ( p.o. Flagyl as IV Flagyl is back ordered) # Crohn's disease - most likely having Crohn's flare - currently no diarrhea - will start on IV antibiotics given findings of mesenteric stranding on CT of abdomen - GI consulted # small-bowel obstruction - CT appearance of sequelae of small-bowel obstruction - abdomen is soft, no rebound or guarding - will consul get General surgery DVT prophylaxis: Lovenox Quality Stroke Does the patient have a stroke diagnosis?: No VTE Prior VTE?: No VTE Risk Level:: Medical - moderate - high VTE Device Contraindication: Treatment Not Indicated VTE Drug Contraindication: N/A - Med Ordered
[2021-02-25 07:15] LABS: C Reactive Protein 0.56 mg/dL (< or = 0.50)
--- NOTE | 2021-02-25 07:22 | P.CNGI_ITS ---
History of Present Illness Data of Consult Service Date: 02/25/21 Requesting physician: Sheng Diaz Primary Care Provider: Shakira Higgins NP HPI Reason for consult: abdominal pain 25 yr old m w hx of crohns and non compliance being assessed for abdominal pain Pain was sudden onset in the mid abdomen and sharp and stabbing in nature. It was at least 5/10 in severity with no relieving or exacerbating factors. He had no nausea or vomiting, had been passing normal colored stool without blood or melena. Not been using nsaids. No fever or chills, appetite had been good. He denies any chest pain, no urinary symptoms, no lower extremity edema, no headache or change in vision, no numbness tingling or weakness. he is not on any medication for crohns, had been on humira in past but stopped due to intolerance and was lost to follow up with GI thereafter, controlling his disease with diet. Labs significant for WBC count of 13.9, ALT of 49, CRP mildly raised CT with few mildly prominent fecalized small bowel loops in right lower quadrant with adjacent mesenteric stranding and small amount of free fluid suspicious for sequelae of small-bowel obstruction He was commenced on antibiotics and fluids and is more comfortable Review of Systems Review of Systems: Constitutional : No Weight loss, No Fever, No Chills ENT/Mouth : No sore throat, No Rhinorrhea Eyes: No Swelling, No Redness Cardiovascular : No Chest Pain, No SOB, No Edema Respiratory : No Cough, No Sputum, No Wheezing Gastrointestinal : see HPI Genitourinary : NO Dysuria, No Urinary Frequency, No Hematuria, No Urgency Musculoskeletal : No joint pain, No Myalgias, No Joint Swelling Skin : No Skin Lesions, No rash Neuro : No Weakness, No Numbness, No Dizziness, No Headache Psych : No Anxiety/Panic, No Depression Heme/Lymph: No Bruising, No Lymphadenopathy Endocrine : No Polyuria, No Polydipsia All other systems reviewed and are negative. Yes all other systems are reviewed and are negative [facility] Past Medical History Medical History Acquired genu valgum of both knees Acute Crohn's disease Arthritis Depression Eczema Scoliosis Spondylosis of lumbosacral spine without myelopathy Family History Family History Father No problems noted. Mother Hypertension Maternal Grandfather Diabetes Stroke Other Anemia Surgical History Surgical History History of arthroscopy of both knees Social History Social History Housing: House Alcohol intake: current Alcohol intake frequency: holidays/special occasions only Patient Tobacco Use Status: Former Tobacco user e-Cigarette/Vaping Use: Never Used service: No Current occupational status: unemployed Meds Allergies Allergy/AdvReac Type Severity Reaction Status Date / Time penicillin V Allergy Intermediate rash Verified 02/24/21 21:42 Active Medications: Current Medications Pharmacy Consult (Consult Rx Perform Med Rec) 1 each MISCELLANE ONCE PRN PRN Reason: Consult order Home Medications Medication Instructions Recorded Confirmed Last Taken Type meloxicam 15 mg tablet (Mobic) 15 mg PO DAILY PRN 02/25/21 02/25/21 Unknown History multivitamin 1 tab PO DAILY 02/25/21 02/25/21 Unknown History Physical Exam Vital Signs: Vital Signs: Last Vital Signs Temp 98.2 F 02/24/21 21:42 Pulse 79 02/25/21 06:14 Resp 18 02/25/21 06:14 BP 145/86 H 02/25/21 06:14 Pulse Ox 98 02/25/21 06:14 Body Mass Index 37.5 EXAM: GENERAL: The patient is well developed and nontoxic. VITAL SIGNS:see workflow HEENT: Nonicteric sclerae, PERRLA, EOMI. Oropharynx clear. Moist mucous membranes. Conjunctivae appear well perfused. No thyroid mass. CHEST: Chest wall is nontender. HEART: Regular rate and rhythm without murmurs. LUNGS: Clear to auscultation bilaterally. ABDOMEN: Soft, positive bowel sounds, tender mid abdomen, no organomegaly.no flank tenderness SKIN: No rash, no excessive bruising, petechiae, or purpura. NEUROLOGIC: Cranial nerves II-XII intact without motor/sensory deficit. psych- nml affect MS--normal ROM Const: General: cooperative and no acute distress All entation/consciousness: patient oriented x3 Eyes: General: appearance normal, both eyes and all related structures Pupi ls: Equal, round and reactive pupils present Resp: Effort & Inspection: normal respiratory effort Auscultation: clear to auscultation bilaterally Cardio: Rate: regular rate Rhythm: regular rhythm GI: Palpation (GI): Soft to palpation Skin: General skin exam: no rashes or lesions noted Neuro: General: patient oriented x3 Cranial nerves: Yes Equal, round and reactive pupils present Cognition (Neuro): normal cognition Extrem: General: Yes normal to inspection and Yes no pedal edema Results Labs CBC & Chem 7: 02/25/21 01:00 02/25/21 01:00 Labs: Short CBC 02/25/21 Range/Units 01:00 WBC 13.9 H (4.8-10.8) X10*3/uL Hgb 17.9 (14.0-18.0) g/dl Hct 53.6 H (42.0-52.0) % Plt Count 284 (160-400) X10*3/uL BMP 02/25/21 01:00 Sodium 138 Potassium 4.2 Chloride 105 Carbon Dioxide 22 BUN 9 Creatinine 0.83 Calcium 9.8 Liver Function 02/25/21 Range/Units 01:00 Total Bilirubin 0.6 (0.0-1.0) mg/dL AST 23 (5-37) U/L ALT 49 H (0-40) U/L Alkaline Phosphatase 71 (39-117) U/L Albumin 5.2 H (3.5-5.0) g/dL Urine 02/25/21 Range/Units 00:50 Urine Color YELLOW Urine Appearance CLEAR Urine pH 6.0 (5.0-8.0) Ur Specific [place] >= 1.030 H (1.005-1.025) Urine Protein TRACE (NEG-TRACE) MG/DL Urine Glucose (UA) NEG (NEG) MG/DL Imaging CT scan - abdomen: Attestation: I personally reviewed and interpreted this imaging study as follows: My impression: stranding and feculization of small bowel Assessment and Plan (1) Crohn's disease: Status: Acute (2) Abdominal pain: Status: Acute (3) Small bowel obstruction: Status: Acute 1/ Crohns disease, small bowel with active flare, and enteritis, non compliance in past PLAN: 1/ Allow clears if tolerated otherwise NPO, and advance diet when able 2/cont with IV ABX, re eval tomorrow, and can consider 48 hrs of solumedrol 20 mg q 8 h IV if abdominal exam stable with sterodi taper thereafter 3/ he is amenable to trying entyvio after this acute episode, will need to check hep a, b status and TB spot 4/avoid nsaid Procedures Date of Service Date of Service: 02/25/21
--- NOTE | 2021-02-25 08:34 | MHC.CM.PN ---
PATIENT LIVES WITH HIS MOTHER'S FRIEND. HE IS FULLY INDEPENDENT WITH NO DME OR VNA SERVICES. NO HCP ON FILE. PATIENT IS AWARE THAT CASE MANAGEMENT CAN ASSIST WITH COMPLETION. HE DOES NOT HAVE ANY INHALERS.
[2021-02-25] MEDS: ondansetron HCL 4 MG/2 ML VIAL IVPUSH (11:51)
[2021-02-25] MEDS: metroNIDAZOLE 500 MG TABLET PO ×2 (11:51→19:14)
[2021-02-25] MEDS: Morphine Sulfate 4 MG/ML CARTRIDGE IVPUSH (11:51)
[2021-02-25] MEDS: Enoxaparin Sodium 40 MG/0.4 ML SYRINGE SUBCUT (11:52)
[2021-02-25] MEDS: 0.9 % Sodium Chloride Flush 3 ML SYRINGE IVFLUSH ×3 (13:37→20:48)
--- NOTE | 2021-02-25 15:00 | P.CONGS_ITS ---
History of Present Illness Consult details Consult date: 02/25/21 Reason for consult: abdominal pain (Crohn's disease, small-bowel obstruction) Requesting physician: Usman Green Narrative: This is a 25-year-old gentleman who presented to the emergency department for evaluation of severe, stabbing and crampy diffuse abdominal pain that began yesterday. He reports nausea but no vomiting. He has a history of Crohn's disease and has been on Humira in the past. He reports that he did not feel as though it was helping him and he elected to discontinue the treatment. He has not had similar symptoms in the past. In the emergency department, white blood count was noted to be elevated at 13.5. CT scan of the abdomen and pelvis was consistent with small-bowel obstruction. Etiology was not identified. He has no prior history of surgery. He usually has two loose bowel movements a day and last moved his bowels yesterday. He had not passed any flatus since yesterday on initial presentation but reports that he has started to pass some flatus and is feeling better. He is tolerating clear liquids. Review of Systems Review of Systems: Yes all other systems are reviewed and are negative (Except for diffuse joint aches) PMFSH Past Medical History Medical History Acquired genu valgum of both knees Acute Crohn's disease Arthritis Depression Eczema Scoliosis Spondylosis of lumbosacral spine without myelopathy Family History Family History Father No problems noted. Mother Hypertension Maternal Grandfather Diabetes Stroke Other Anemia Surgical History Surgical History History of arthroscopy of both knees Social History Social History Housing: House Alcohol intake: current Alcohol intake frequency: holidays/special occasions only Patient Tobacco Use Status: Former Tobacco user e-Cigarette/Vaping Use: Never Used Use of substances other than those prescribed or required for medical reasons: No Advance Directives: No Advance Directives Information Provided: Yes service: No Current occupational status: unemployed Meds Allergies Allergy/AdvReac Type Severity Reaction Status Date / Time penicillin V Allergy Intermediate rash Verified 02/24/21 21:42 Active Medications: Current Medications Acetaminophen (Acetaminophen 325 Mg Tablet) 650 mg PO Q6H PRN PRN Reason: Pain, Mild (Pain Scale 1-3) Enoxaparin Sodium (Enoxaparin Sodium 40 Mg/0.4 Ml Syringe) 40 mg SUBCUT Q24H [facility] Last Admin: 02/25/21 11:52 Dose: 40 mg Documented by: Ceftriaxone Sodium 1 gm/ (Sodium Chloride) 50 mls @ 100 mls/hr IV Q24H [facility] Metronidazole (Metronidazole 500 Mg Tablet) 500 mg PO Q8H [facility] Last Admin: 02/25/21 11:51 Dose: 500 mg Documented by: Morphine Sulfate (Morphine Sulfate 4 Mg/Ml Cartridge) 4 mg IVPUSH Q4H PRN; Protocol PRN Reason: Pain, Severe (Pain Scale 7-10) Last Admin: 02/25/21 11:51 Dose: 4 mg Documented by: Ondansetron HCl (Ondansetron Hcl 4 Mg/2 Ml Vial) 4 mg IVPUSH Q8H PRN PRN Reason: Nausea and Vomiting Last Admin: 02/25/21 11:51 Dose: 4 mg Documented by: Pharmacy Consult (Consult Rx Perform Med Rec) 1 each MISCELLANE ONCE PRN PRN Reason: Consult order Sodium Chloride (0.9 % Sodium Chloride Flush 3 Ml Syringe) 3 ml IVFLUSH QSHIFT [facility] Last Admin: 02/25/21 13:37 Dose: 3 ml Documented by: Home Medications Medication Instructions Recorded Confirmed Last Taken Type meloxicam 15 mg tablet (Mobic) 15 mg PO DAILY PRN 02/25/21 02/25/21 Unknown History multivitamin 1 tab PO DAILY 02/25/21 02/25/21 Unknown History Physical Exam Vital Signs: Vital Signs: Last Vital Signs Temp 98.2 F 02/24/21 21:42 Pulse 74 02/25/21 13:36 Resp 16 02/25/21 11:51 BP 133/73 02/25/21 13:36 Pulse Ox 97 02/25/21 11:25 Body Mass Index 37.5 Const: General: cooperative, no acute distress, alert and awake HENMT: Head: Yes normocephalic and Yes atraumatic Eyes: General: appearance normal, both eyes and all related structures Neck: Neck: Yes trachea midline and Yes supple Resp: Effort & Inspection: normal respiratory effort Auscultation: clear to auscultation bilaterally Cardio: Rate: regular rate Rhythm: regular rhythm GI: Other: soft, mildly tender RLQ, no masses, no organomegaly, nondistended, NABS Extrem: General: Yes normal to inspection Results Labs Result diagrams: 02/25/21 01:00 02/25/21 01:00 Labs: Abnormal lab results 02/25/21 02/25/21 02/25/21 Range/Units 00:50 01:00 01:00 WBC 13.9 H (4.8-10.8) X10*3/uL RBC 6.00 H (4.60-5.80) X10*6/uL Hct 53.6 H (42.0-52.0) % Neut % (Auto) 85.7 H (45-73) % Lymph % (Auto) 8.7 L (20-40) % Abs Immat Gran (auto) 0.05 H (0.00-0.03) X10*3/uL Absolute Neuts (auto) 11.9 H (2.0-8.3) x10*3/uL ALT 49 H (0-40) U/L C-Reactive Protein 0.56 H (< or = 0.50) mg/dL Total Protein 8.3 H (6.5-8.0) g/dL Albumin 5.2 H (3.5-5.0) g/dL Ur Specific [place] >= 1.030 H (1.005-1.025) Short CBC 02/25/21 Range/Units 01:00 WBC 13.9 H (4.8-10.8) X10*3/uL Hgb 17.9 (14.0-18.0) g/dl Hct 53.6 H (42.0-52.0) % Plt Count 284 (160-400) X10*3/uL BMP 02/25/21 01:00 Sodium 138 Potassium 4.2 Chloride 105 Carbon Dioxide 22 BUN 9 Creatinine 0.83 Calcium 9.8 Liver Function 02/25/21 Range/Units 01:00 Total Bilirubin 0.6 (0.0-1.0) mg/dL AST 23 (5-37) U/L ALT 49 H (0-40) U/L Alkaline Phosphatase 71 (39-117) U/L Albumin 5.2 H (3.5-5.0) g/dL Urine 02/25/21 Range/Units 00:50 Urine Color YELLOW Urine Appearance CLEAR Urine pH 6.0 (5.0-8.0) Ur Specific [place] >= 1.030 H (1.005-1.025) Urine Protein TRACE (NEG-TRACE) MG/DL Urine Glucose (UA) NEG (NEG) MG/DL All other labs normal. Imaging Abdomen CT scan report/results: report reviewed and image reviewed CT scan - pelvis: report reviewed and image reviewed Assessment and Plan (1) Small bowel obstruction: Status: Acute (2) Crohn's disease: Status: Acute 25-year-old male with small-bowel obstruction likely secondary to Crohn's disease. On ceftriaxone, metronidazole. Pt. reports steroids recommended by Dr. Khan. Clinically improved from time of presentation. No indication for surgery at this time. General Surgery service will follow along. Procedures Date of Service Date of Service: 02/25/21
--- NOTE | 2021-02-25 16:50 | PC.NURSE ---
pt resting in bed watching tv, family at bedside. VSS. awaiting admission to the floor, pt is aware of plan. reminded pt of clear liquid diet only as family brought food in. family and pt aware
--- NOTE | 2021-02-25 19:23 | PC.NURSE ---
RN assumed care at 190. Pt alert and oriented x4, calm and cooperative. Pt denies pain. Denies abd pain, N/V, diarrhea at this time. Pt tolerated clear liquids well. Pt independently moves around in stretcher, steady on his feet. IV intact. Vitals remain stable. Pt aware of being admitted and agrees to plan. Report given to CARLOS Cadet room 460, med surg admit.
[2021-02-25] MEDS: Acetaminophen 325 MG TABLET 650 MG PO (20:47)
[2021-02-26] MEDS: metroNIDAZOLE 500 MG TABLET PO ×3 (03:30→20:30)
[2021-02-26] MEDS: cefTRIAXone sodium 1 GM in 0.9 % Sodium Chloride 50 ML IV (03:31)
[2021-02-26 03:54] VITALS: BP 134/74; PULSE 68; RESP 16; TEMP 36.5; O2SAT 99
[2021-02-26 06:00] VITALS: BMI 41.0
[2021-02-26 06:42] LABS: MANUAL DIFF FLAG NO
[2021-02-26 06:47] LABS: Basophils Percent Auto 0.4 % (0-2); Eosinophils Absolute Auto 0.2 X10*3/uL (0.0-0.4); Eosinophils Percent Auto 2.6 % (0-4); Hematocrit 44.6 % (42.0-52.0); Hemoglobin 15.1 g/dl (14.0-18.0); Imm Gran Abs Auto 0.02 X10*3/uL (0.00-0.03); Imm Gran Pct Auto 0.3 % (0.0-0.4); Lymphocytes Absolute Auto 1.6 X10*3/uL (1.2-4.9); Lymphocytes Percent Auto 22.8 % (20-40); Mean Corpuscular HGB Conc 33.9 g/dl (31.0-36.0); Mean Corpuscular Hemoglobin 30.3 pg (27.0-33.0); Mean Corpuscular Volume 89.4 fL (80.0-98.0); Mean Platelet Volume 9.8 fL (9.4-12.4); Monocytes Absolute Auto 0.7 X10*3/uL (0.1-1.2); Monocytes Percent Auto 10.2 % (2-11); Neutrophils Absolute Auto 4.5 x10*3/uL (2.0-8.3); Neutrophils Percent Auto 63.7 % (45-73); Platelet Count 212 X10*3/uL (160-400); Red Blood Count 4.99 X10*6/uL (4.60-5.80); Red Cell Distribution Width 12.9 % (11.0-16.0); White Blood Count 7.1 X10*3/uL (4.8-10.8)
[2021-02-26 07:09] LABS: Anion Gap 13 (12-20); Blood Urea Nitrogen 8 mg/dL (9-16); Calcium 8.7 mg/dL (8.4-10.2); Carbon Dioxide 24 mmol/L (22-29); Chloride 106 mmol/L (96-108); Creatinine Clr Calc Pharmacy 220.2; Estimated Glomerular Filt Rate > 60; Glucose Random 83 mg/dL (60-115); Sodium 139 mmol/L (135-145)
[2021-02-26 07:26] VITALS: BP 129/62; PULSE 68; RESP 18; TEMP 36.8; O2SAT 97
[2021-02-26 07:30] LABS: C Reactive Protein 0.58 mg/dL (< or = 0.50)
--- NOTE | 2021-02-26 08:36 | P.CDIC_ITS ---
CDI Concurrent Query Documentation Clarification: PHYSICIAN'S DOCUMENTATION REQUEST Date of Query: 02/26/21 0838 Patient Name: Tyler Mccann Admit Date: 02/25/21 Dear Doctor, A review of the medical record indicates additional documentation may be needed. Please review below and update the documentation accordingly. Clinical Indicators: The diagnosis of Crohn's disease was documented in the record on 02/25/21. Additional clinical indicators from the record include: Risk Factors/Clinical Indicators/Treatments CT abdomen: few small bowel loops RLQ with adjacent mesenteric stranding and small free fluid suspicious for sequelae of SBO Please provide the following clarification regarding Crohn's disease: Complications: * Intestinal obstruction (specify partial, complete, incomplete due to Crohns) * No complications * Other complication ? please specify * Unable to determine Use of terms such as suspected, likely, concern for, or probable (associated with a specific diagnosis that is being evaluated, monitored, or treated as if it exists) are acceptable and can be coded in the inpatient setting, when documented at the time of discharge. Thank you, Marce Castrejon [insert CDI's credentials] Extension: [4-digit phone extension] Please use your independent medical judgment in providing your response. THIS QUERY IS PART OF THE PERMANENT MEDICAL RECORD Provider Response: Other Other Diagnosis: sbo sec to crohn dis.
[2021-02-26] MEDS: 0.9 % Sodium Chloride Flush 3 ML SYRINGE IVFLUSH ×3 (09:54→23:55)
[2021-02-26 11:22] VITALS: BP 137/85; PULSE 62; RESP 18; TEMP 36.7; O2SAT 97
[2021-02-26 11:51] LABS: CDiff Gene PCR NEGATIVE (Negative)
[2021-02-26 12:01] LABS: Leukocytes Stool Qualitative NEGATIVE (NEGATIVE)
[2021-02-26] MEDS: Enoxaparin Sodium 40 MG/0.4 ML SYRINGE SUBCUT (13:01)
--- NOTE | 2021-02-26 15:12 | MHC.CM.PN ---
per rounds pt to be dcd in 1 to 2 days dc plan remaN IS HOME NO SERVCIES
[2021-02-26 15:26] VITALS: BP 140/77; PULSE 71; RESP 18; TEMP 37.5; O2SAT 99
--- NOTE | 2021-02-26 15:52 | P.PNIM_ITS ---
Subjective Subjective Date of Service: 02/25/21 Interval History: sbo Review of Systems abd pain still pesent Denies any nausea vomiting or fever or chills. Physical Exam Vital Signs: Vital Signs: Last Vital Signs Temp 99.5 F 02/26/21 15:26 Pulse 71 02/26/21 15:26 Resp 18 02/26/21 15:26 BP 140/77 H 02/26/21 15:26 Pulse Ox 99 02/26/21 15:26 Body Mass Index 41.0 Appearance: Alert.? Oriented X3.? Eyes: Pupils equal, round and reactive to light.? Sclera nonicteric.? ENT: Pharynx normal.? Moist mucous membranes. cvs: rrr, [id number] , no murmur res: clear to auscultation ,no rhonchii or wheezing abd: no rebound or guarding ,mild diffuse tenderness, bs present. ext pulses present , no cyanosis ,Gait well balanced well coordinated. neuro: axo3 , nonfocal. Objective Data Active Medications Acetaminophen (Acetaminophen 325 Mg Tablet) 650 mg PO Q6H PRN PRN Reason: Pain, Mild (Pain Scale 1-3) Last Admin: 02/25/21 20:47 Dose: 650 mg Documented by: STEFANO Enoxaparin Sodium (Enoxaparin Sodium 40 Mg/0.4 Ml Syringe) 40 mg SUBCUT Q24H [facility] Last Admin: 02/26/21 13:01 Dose: 40 mg Documented by: KRISSY Ceftriaxone Sodium 1 gm/ (Sodium Chloride) 50 mls @ 100 mls/hr IV Q24H [facility] Last Infusion: 02/26/21 04:15 Dose: 0 mls/hr Documented by: STEFANO Metronidazole (Metronidazole 500 Mg Tablet) 500 mg PO Q8H [facility] Last Admin: 02/26/21 13:01 Dose: 500 mg Documented by: KRISSY Morphine Sulfate (Morphine Sulfate 4 Mg/Ml Cartridge) 4 mg IVPUSH Q4H PRN; Protocol PRN Reason: Pain, Severe (Pain Scale 7-10) Last Admin: 02/25/21 11:51 Dose: 4 mg Documented by: RENETTA Ondansetron HCl (Ondansetron Hcl 4 Mg/2 Ml Vial) 4 mg IVPUSH Q8H PRN PRN Reason: Nausea and Vomiting Last Admin: 02/25/21 11:51 Dose: 4 mg Documented by: RENETTA Pharmacy Consult (Consult Rx Perform Med Rec) 1 each MISCELLANE ONCE PRN PRN Reason: Consult order Sodium Chloride (0.9 % Sodium Chloride Flush 3 Ml [facility]) [facility] Admin: 02/26/21 09:54 Dose: 3 ml Documented by: KRISSY Labs CBC & Chem 7: 02/26/21 05:55 02/26/21 05:55 Labs: Laboratory Results - last 24 hr 02/26/21 02/26/21 02/26/21 05:55 05:55 09:35 MCV 89.4 MCH 30.3 MCHC 33.9 RDW 12.9 Plt Count 212 D MPV 9.8 Immature Gran % (Auto) 0.3 Neut % (Auto) 63.7 Lymph % (Auto) 22.8 [place] % (Auto) 10.2 Eos % (Auto) 2.6 Baso % (Auto) 0.4 Lymph # (Auto) 1.6 [place] # (Auto) 0.7 Eos # (Auto) 0.2 Baso # (Auto) 0.0 Abs Immat Gran (auto) 0.02 Absolute Neuts (auto) 4.5 Absolute Nucleated RBC 0.000 Nucleated RBC % (auto) 0.0 Anion Gap 13 Estim Creat Clear Calc 220.2 Estimated GFR > 60 Random Glucose 83 Calcium 8.7 D C-Reactive Protein 0.58 H Stool Leukocytes, Qual NEGATIVE C. difficile Tox B Gene 02/26/21 09:35 MCV MCH MCHC RDW Plt Count MPV Immature Gran % (Auto) Neut % (Auto) Lymph % (Auto) [place] % (Auto) Eos % (Auto) Baso % (Auto) Lymph # (Auto) [place] # (Auto) Eos # (Auto) Baso # (Auto) Abs Immat Gran (auto) Absolute Neuts (auto) Absolute Nucleated RBC Nucleated RBC % (auto) Anion Gap Estim Creat Clear Calc Estimated GFR Random Glucose Calcium C-Reactive Protein Stool Leukocytes, Qual C. difficile Tox B Gene NEGATIVE Microbiology Microbiology Results: Microbiology 02/25/21 01:03 Blood Culture - Preliminary Blood - Venous No growth after 24 hours. 02/25/21 01:00 Blood Culture - Preliminary Blood - Venous No growth after 24 hours. Assessment and Plan (1) Small bowel obstruction: Status: Acute (2) Crohn's disease: Status: Acute Assessment and Plan: 25-year-old male with past medical history of Crohn's disease presents the hospital with abdominal pain found to have Crohn's flare as well as? sequelae of small bowel obstruction 1. abdominal pain -? most likely multifactorial secondary to small-bowel obstruction as well as Crohn's flare -? last BM? yesterday -? CT abdomen findings as above -? GI recommends IV antibiotics with no steroids for now,on Flagyl as well as ceftriaxone ( p.o. Flagyl as IV Flagyl is back ordered) 2.? Crohn's disease -? most likely having Crohn's flare -? currently no diarrhea -? will start on IV antibiotics given? findings of mesenteric stranding on CT of abdomen -? GI consulted 3.? small-bowel obstruction -? CT appearance of sequelae of small-bowel obstruction -? abdomen is soft, no rebound or guarding -? will consul get General surgery ?DVT prophylaxis:? Lovenox Quality Stroke Does the patient have a stroke diagnosis?: No VTE Prior VTE?: No VTE Risk Level:: Medical - moderate - high VTE Device Contraindication: Treatment Not Indicated VTE Drug Contraindication: N/A - Med Ordered
--- NOTE | 2021-02-26 15:56 | HO.PM.IMPN ---
Subjective Subjective Date of Service: 02/26/21 Interval History: abo Review of Systems Abdominal pain seems to be improving,passing bowels Denies any chest pain or shortness of breath or fever or chills or nausea or vomiting. Physical Exam Vital Signs: Vital Signs: Last Vital Signs Temp 99.5 F 02/26/21 15:26 Pulse 71 02/26/21 15:26 Resp 18 02/26/21 15:26 BP 140/77 H 02/26/21 15:26 Pulse Ox 99 02/26/21 15:26 Body Mass Index 41.0 Physical exam Appearance: Alert.? Oriented X3.? not in distress.? cvs: rrr, [id number] , no murmur res: clear to auscultation ,no rhonchii or wheezing abd: no rebound or guarding ,abd pains eems to be imrpoving, bs present. ext pulses present , no cyanosis ,Gait well balanced well coordinated. neuro: axo3 , nonfocal. Objective Data Active Medications Acetaminophen (Acetaminophen 325 Mg Tablet) 650 mg PO Q6H PRN PRN Reason: Pain, Mild (Pain Scale 1-3) Last Admin: 02/25/21 20:47 Dose: 650 mg Documented by: STEFANO Enoxaparin Sodium (Enoxaparin Sodium 40 Mg/0.4 Ml Syringe) 40 mg SUBCUT Q24H [facility] Last Admin: 02/26/21 13:01 Dose: 40 mg Documented by: KRISSY Ceftriaxone Sodium 1 gm/ (Sodium Chloride) 50 mls @ 100 mls/hr IV Q24H [facility] Last Infusion: 02/26/21 04:15 Dose: 0 mls/hr Documented by: STEFANO Metronidazole (Metronidazole 500 Mg Tablet) 500 mg PO Q8H [facility] Last Admin: 02/26/21 13:01 Dose: 500 mg Documented by: KRISSY Morphine Sulfate (Morphine Sulfate 4 Mg/Ml Cartridge) 4 mg IVPUSH Q4H PRN; Protocol PRN Reason: Pain, Severe (Pain Scale 7-10) Last Admin: 02/25/21 11:51 Dose: 4 mg Documented by: RENETTA Ondansetron HCl (Ondansetron Hcl 4 Mg/2 Ml Vial) 4 mg IVPUSH Q8H PRN PRN Reason: Nausea and Vomiting Last Admin: 02/25/21 11:51 Dose: 4 mg Documented by: RENETTA Pharmacy Consult (Consult Rx Perform Med Rec) 1 each MISCELLANE ONCE PRN PRN Reason: Consult order Sodium Chloride (0.9 % Sodium Chloride Flush 3 Ml [facility]) [facility] Last Admin: 02/26/21 09:54 Dose: 3 ml Documented by: KRISSY Labs CBC & Chem 7: 02/26/21 05:55 02/26/21 05:55 Labs: Laboratory Results - last 24 hr 02/26/21 02/26/21 02/26/21 05:55 05:55 09:35 MCV 89.4 MCH 30.3 MCHC 33.9 RDW 12.9 Plt Count 212 D MPV 9.8 Immature Gran % (Auto) 0.3 Neut % (Auto) 63.7 Lymph % (Auto) 22.8 [place] % (Auto) 10.2 Eos % (Auto) 2.6 Baso % (Auto) 0.4 Lymph # (Auto) 1.6 [place] # (Auto) 0.7 Eos # (Auto) 0.2 Baso # (Auto) 0.0 Abs Immat Gran (auto) 0.02 Absolute Neuts (auto) 4.5 Absolute Nucleated RBC 0.000 Nucleated RBC % (auto) 0.0 Anion Gap 13 Estim Creat Clear Calc 220.2 Estimated GFR > 60 Random Glucose 83 Calcium 8.7 D C-Reactive Protein 0.58 H Stool Leukocytes, Qual NEGATIVE C. difficile Tox B Gene 02/26/21 09:35 MCV MCH MCHC RDW Plt Count MPV Immature Gran % (Auto) Neut % (Auto) Lymph % (Auto) [place] % (Auto) Eos % (Auto) Baso % (Auto) Lymph # (Auto) Chambers # (Auto) Eos # (Auto) Baso # (Auto) Abs Immat Gran (auto) Absolute Neuts (auto) Absolute Nucleated RBC Nucleated RBC % (auto) Anion Gap Estim Creat Clear Calc Estimated GFR Random Glucose Calcium C-Reactive Protein Stool Leukocytes, Qual C. difficile Tox B Gene NEGATIVE Microbiology Microbiology Results: Microbiology 02/25/21 01:03 Blood Culture - Preliminary Blood - Venous No growth after 24 hours. 02/25/21 01:00 Blood Culture - Preliminary Blood - Venous No growth after 24 hours. Assessment and Plan (1) Small bowel obstruction: Status: Acute (2) Crohn's disease: Status: Acute Assessment and Plan: 25-year-old male with past medical history of Crohn's disease presents the hospital with abdominal pain found to have Crohn's flare as well as? sequelae of small bowel obstruction 1. abdominal pain-sbo sec to crohn dis -? most likely multifactorial secondary to small-bowel obstruction as well as Crohn's flare -? last BM? today also -? GI recommends IV antibiotics with no steroids for now,on Flagyl as well as ceftriaxone ( p.o. Flagyl as IV Flagyl is back ordered) surgery eval noted-patient improving, no surgical intervention currently. 2.? Crohn's disease -? most likely having Crohn's flare -? currently no diarrhea continue IV antibiotics given? findings of mesenteric stranding on CT of abdomen 3.? small-bowel obstruction -? CT appearance of sequelae of small-bowel obstruction -? abdomen is soft, no rebound or guarding -? will consul get General surgery Quality Stroke Does the patient have a stroke diagnosis?: No VTE Prior VTE?: No VTE Risk Level:: Medical - moderate - high VTE Device Contraindication: Treatment Not Indicated VTE Drug Contraindication: N/A - Med Ordered
--- NOTE | 2021-02-26 16:03 | PM.PNGS ---
Subjective Subjective Date of Service: 02/26/21 Interval history: feels much better denies abdl pain has flatus Physical Exam Vital Signs: Vital Signs: Last Vital Signs Temp 99.5 F 02/26/21 15:26 Pulse 71 02/26/21 15:26 Resp 18 02/26/21 15:26 BP 140/77 H 02/26/21 15:26 Pulse Ox 99 02/26/21 15:26 Body Mass Index 41.0 Const: General: comfortable and no acute distress Resp: Effort & Inspection: normal respiratory effort Cardio: Rate: regular rate GI: Palpation (GI): Soft to palpation, not firm, nontender and no guarding Objective Data Active Medications Acetaminophen (Acetaminophen 325 Mg Tablet) 650 mg PO Q6H PRN PRN Reason: Pain, Mild (Pain Scale 1-3) Last Admin: 02/25/21 20:47 Dose: 650 mg Documented by: STEFANO Enoxaparin Sodium (Enoxaparin Sodium 40 Mg/0.4 Ml Syringe) 40 mg SUBCUT Q24H [facility] Last Admin: 02/26/21 13:01 Dose: 40 mg Documented by: KRISSY Ceftriaxone Sodium 1 gm/ (Sodium Chloride) 50 mls @ 100 mls/hr IV Q24H [facility] Last Infusion: 02/26/21 04:15 Dose: 0 mls/hr Documented by: STEFANO Metronidazole (Metronidazole 500 Mg Tablet) 500 mg PO Q8H [facility] Last Admin: 02/26/21 13:01 Dose: 500 mg Documented by: KRISSY Morphine Sulfate (Morphine Sulfate 4 Mg/Ml Cartridge) 4 mg IVPUSH Q4H PRN; Protocol PRN Reason: Pain, Severe (Pain Scale 7-10) Last Admin: 02/25/21 11:51 Dose: 4 mg Documented by: RENETTA Ondansetron HCl (Ondansetron Hcl 4 Mg/2 Ml Vial) 4 mg IVPUSH Q8H PRN PRN Reason: Nausea and Vomiting Last Admin: 02/25/21 11:51 Dose: 4 mg Documented by: RENETTA Pharmacy Consult (Consult Rx Perform Med Rec) 1 each MISCELLANE ONCE PRN PRN Reason: Consult order Sodium Chloride (0.9 % Sodium Chloride Flush 3 Ml Syringe) 3 ml IVFLUSH QSHIFT [facility] Last Admin: 02/26/21 16:02 Dose: 3 ml Documented by: EFE Labs CBC & Chem 7: 02/26/21 05:55 02/26/21 05:55 Labs: Laboratory Results - last 24 hr 02/26/21 02/26/21 02/26/21 05:55 05:55 09:35 MCV 89.4 MCH 30.3 MCHC 33.9 RDW 12.9 Plt Count 212 D MPV 9.8 Immature Gran % (Auto) 0.3 Neut % (Auto) 63.7 Lymph % (Auto) 22.8 [place] % (Auto) 10.2 Eos % (Auto) 2.6 Baso % (Auto) 0.4 Lymph # (Auto) 1.6 [place] # (Auto) 0.7 Eos # (Auto) 0.2 Baso # (Auto) 0.0 Abs Immat Gran (auto) 0.02 Absolute Neuts (auto) 4.5 Absolute Nucleated RBC 0.000 Nucleated RBC % (auto) 0.0 Anion Gap 13 Estim Creat Clear Calc 220.2 Estimated GFR > 60 Random Glucose 83 Calcium 8.7 D C-Reactive Protein 0.58 H Stool Leukocytes, Qual NEGATIVE C. difficile Tox B Gene 02/26/21 09:35 MCV MCH MCHC RDW Plt Count MPV Immature Gran % (Auto) Neut % (Auto) Lymph % (Auto) [place] % (Auto) Eos % (Auto) Baso % (Auto) Lymph # (Auto) [place] # (Auto) Eos # (Auto) Baso # (Auto) Abs Immat Gran (auto) Absolute Neuts (auto) Absolute Nucleated RBC Nucleated RBC % (auto) Anion Gap Estim Creat Clear Calc Estimated GFR Random Glucose Calcium C-Reactive Protein Stool Leukocytes, Qual C. difficile Tox B Gene NEGATIVE Microbiology Microbiology Results: Microbiology 02/25/21 01:03 Blood Culture - Preliminary Blood - Venous No growth after 24 hours. 02/25/21 01:00 Blood Culture - Preliminary Blood - Venous No growth after 24 hours. Procedures Date of Service Date of Service: 02/26/21 Progress Note: A&P Assessment and plan (1) Small bowel obstruction: Status: Acute Assessment and Plan: clinically resolved from Crohns ds no surgical intervention necessary ok to advance diet as tolerated tomorrow management of Crohns' as per GI Fall Risk Details Current Medications: Current Medications Acetaminophen (Acetaminophen 325 Mg Tablet) 650 mg PO Q6H PRN PRN Reason: Pain, Mild (Pain Scale 1-3) Last Admin: 02/25/21 20:47 Dose: 650 mg Documented by: Enoxaparin Sodium (Enoxaparin Sodium 40 Mg/0.4 Ml Syringe) 40 mg SUBCUT Q24H [facility] Last Admin: 02/26/21 13:01 Dose: 40 mg Documented by: Ceftriaxone Sodium 1 gm/ (Sodium Chloride) 50 mls @ 100 mls/hr IV Q24H [facility] Last Infusion: 02/26/21 04:15 Dose: Infused Documented by: Metronidazole (Metronidazole 500 Mg Tablet) 500 mg PO Q8H [facility] Last Admin: 02/26/21 13:01 Dose: 500 mg Documented by: Morphine Sulfate (Morphine Sulfate 4 Mg/Ml Cartridge) 4 mg IVPUSH Q4H PRN; Protocol PRN Reason: Pain, Severe (Pain Scale 7-10) Last Admin: 02/25/21 11:51 Dose: 4 mg Documented by: Ondansetron HCl (Ondansetron Hcl 4 Mg/2 Ml Vial) 4 mg IVPUSH Q8H PRN PRN Reason: Nausea and Vomiting Last Admin: 02/25/21 11:51 Dose: 4 mg Documented by: Pharmacy Consult (Consult Rx Perform Med Rec) 1 each MISCELLANE ONCE PRN PRN Reason: Consult order Sodium Chloride (0.9 % Sodium Chloride Flush 3 Ml Syringe) 3 ml IVFLUSH QSHIFT [facility] Last Admin: 02/26/21 16:02 Dose: 3 ml Documented by: Time Spent With Patient Time: Total time spent is greater than 50% in coordination of care (as documented) at patient's floor/unit and/or counseling patient: Time with patient: 15 - 24 minutes Quality Stroke Does the patient have a stroke diagnosis?: No VTE Prior VTE?: No VTE Risk Level:: Medical - moderate - high VTE Device Contraindication: Treatment Not Indicated VTE Drug Contraindication: N/A - Med Ordered
[2021-02-26] MEDS: Morphine Sulfate 4 MG/ML CARTRIDGE IVPUSH (16:05)
[2021-02-26 19:22] VITALS: BP 133/80; PULSE 71; RESP 18; TEMP 36.9; O2SAT 96
[2021-02-26 23:23] VITALS: BP 162/77; PULSE 72; RESP 18; TEMP 36.8; O2SAT 100
--- NOTE | 2021-02-27 00:30 | MHC.PIE ---
P.CHEST PAIN I.PT C/O CHEST PAIN.STATES A WEIRD FUNNY FEELING IN MY CHEST .STAT EKG DONE,NSR.EKG SENT TO WHO REVIEWED IT.ORDER TO GIVE TYLENOL AND MYLANTA GIVEN.PT UPDATED.MEDS.GIVEN E.GOOD EFFECT FROM MEDS.RESTING COMF.
--- NOTE | 2021-02-27 00:35 | ECG_ITS ---
Test Reason : chest pain Blood Pressure : / mmHG Vent. Rate : 062 BPM Atrial Rate : 062 BPM P-R Int : 160 ms QRS Dur : 078 ms QT Int : 400 ms P-R-T Axes : 042 027 014 degrees QTc Int : 406 ms Normal sinus rhythm Normal ECG No significant changes seen Referred By: Usman Green Electronically Signed By:CATRINA WATTS MD
[2021-02-27] MEDS: Acetaminophen 325 MG TABLET 650 MG PO (01:08)
[2021-02-27] MEDS: Magnesium Hydrox/Alum Hydrox 30 ML ORAL.SUSP 15 ML PO (01:08)
[2021-02-27] MEDS: cefTRIAXone sodium 1 GM in 0.9 % Sodium Chloride 50 ML IV (03:50)
[2021-02-27] MEDS: metroNIDAZOLE 500 MG TABLET PO (03:50)
[2021-02-27 04:00] VITALS: BP 144/80; PULSE 79; RESP 20; TEMP 36.6; O2SAT 98
[2021-02-27 06:00] VITALS: BMI 40.1
[2021-02-27 07:18] VITALS: BP 131/62; PULSE 68; RESP 18; TEMP 36.4; O2SAT 98
[2021-02-27] MEDS: 0.9 % Sodium Chloride Flush 3 ML SYRINGE IVFLUSH (07:33)
--- NOTE | 2021-02-27 08:08 | P.PNGS_ITS ---
Subjective Subjective Date of Service: 02/27/21 Interval history: Feels well Denies pain Had BMs Hungry and wants to eat Physical Exam Vital Signs: Vital Signs: Last Vital Signs Temp 97.6 F 02/27/21 07:18 Pulse 68 02/27/21 07:18 Resp 18 02/27/21 07:18 BP 131/62 02/27/21 07:18 Pulse Ox 98 02/27/21 07:18 Body Mass Index 40.1 Const: General: comfortable and no acute distress Resp: Effort & Inspection: normal respiratory effort Cardio: Rate: regular rate GI: Palpation (GI): Soft to palpation, not firm, nontender and no guarding Objective Data Active Medications Acetaminophen (Acetaminophen 325 Mg Tablet) 650 mg PO Q6H PRN PRN Reason: Pain, Mild (Pain Scale 1-3) Last Admin: 02/27/21 01:08 Dose: 650 mg Documented by: ALEX Al Hydroxide/Mg Hydroxide (Magnesium Hydrox/Alum Hydrox 30 Ml Oral.Susp) 15 ml PO Q6H PRN PRN Reason: Heartburn Last Admin: 02/27/21 01:08 Dose: 15 ml Documented by: ALEX Enoxaparin Sodium (Enoxaparin Sodium 40 Mg/0.4 Ml Syringe) 40 mg SUBCUT Q24H [facility] Last Admin: 02/26/21 13:01 Dose: 40 mg Documented by: KRISSY Ceftriaxone Sodium 1 gm/ (Sodium Chloride) 50 mls @ 100 mls/hr IV Q24H [facility] Last Infusion: 02/27/21 04:35 Dose: 0 mls/hr Documented by: ALEX Metronidazole (Metronidazole 500 Mg Tablet) 500 mg PO Q8H [facility] Last Admin: 02/27/21 03:50 Dose: 500 mg Documented by: ALEX Morphine Sulfate (Morphine Sulfate 4 Mg/Ml Cartridge) 4 mg IVPUSH Q4H PRN; Protocol PRN Reason: Pain, Severe (Pain Scale 7-10) Last Admin: 02/26/21 16:05 Dose: 4 mg Documented by: EFE Ondansetron HCl (Ondansetron Hcl 4 Mg/2 Ml Vial) 4 mg IVPUSH Q8H PRN PRN Reason: Nausea and Vomiting Last Admin: 02/25/21 11:51 Dose: 4 mg Documented by: RENETTA Pharmacy Consult (Consult Rx Perform Med Rec) 1 each MISCELLANE ONCE PRN PRN Reason: Consult order Sodium Chloride (0.9 % Sodium Chloride Flush 3 Ml Syringe) 3 ml IVFLUSH QSHIFT [facility] Last Admin: 02/27/21 07:33 Dose: 3 ml Documented by: CHASE Labs CBC & Chem 7: 02/26/21 05:55 02/26/21 05:55 Labs: Laboratory Results - last 24 hr 02/26/21 02/26/21 09:35 09:35 Stool Leukocytes, Qual NEGATIVE C. difficile Tox B Gene NEGATIVE Microbiology Microbiology Results: Microbiology 02/26/21 09:35 Stool Culture - Preliminary Stool Normal so far. 02/25/21 01:03 Blood Culture - Preliminary Blood - Venous No growth after 48 hours. 02/25/21 01:00 Blood Culture - Preliminary Blood - Venous No growth after 48 hours. Procedures Date of Service Date of Service: 02/27/21 Progress Note: A&P Assessment and plan (1) Small bowel obstruction: Status: Acute Assessment and Plan: Secondary to Crohn's flare up Clinical resolved Diet as tolerated Likely okay for discharge later on Needs close GI follow-up Fall Risk Details Current Medications: Current Medications Acetaminophen (Acetaminophen 325 Mg Tablet) 650 mg PO Q6H PRN PRN Reason: Pain, Mild (Pain Scale 1-3) Last Admin: 02/27/21 01:08 Dose: 650 mg Documented by: Al Hydroxide/Mg Hydroxide (Magnesium Hydrox/Alum Hydrox 30 Ml Oral.Susp) 15 ml PO Q6H PRN PRN Reason: Heartburn Last Admin: 02/27/21 01:08 Dose: 15 ml Documented by: Enoxaparin Sodium (Enoxaparin Sodium 40 Mg/0.4 Ml Syringe) 40 mg SUBCUT Q24H [facility] Last Admin: 02/26/21 13:01 Dose: 40 mg Documented by: Ceftriaxone Sodium 1 gm/ (Sodium Chloride) 50 mls @ 100 mls/hr IV Q24H [facility] Last Infusion: 02/27/21 04:35 Dose: Infused Documented by: Metronidazole (Metronidazole 500 Mg Tablet) 500 mg PO Q8H [facility] Last Admin: 02/27/21 03:50 Dose: 500 mg Documented by: Morphine Sulfate (Morphine Sulfate 4 Mg/Ml Cartridge) 4 mg IVPUSH Q4H PRN; Prot ocol PRN Reason: Pain, Severe (Pain Scale 7-10) Last Admin: 02/26/21 16:05 Dose: 4 mg Documented by: Ondansetron HCl (Ondansetron Hcl 4 Mg/2 Ml Vial) 4 mg IVPUSH Q8H PRN PRN Reason: Nausea and Vomiting Last Admin: 02/25/21 11:51 Dose: 4 mg Documented by: Pharmacy Consult (Consult Rx Perform Med Rec) 1 each MISCELLANE ONCE PRN PRN Reason: Consult order Sodium Chloride (0.9 % Sodium Chloride Flush 3 Ml Syringe) [address] [facility] Last Admin: 02/27/21 07:33 Dose: 3 ml Documented by: Time Spent With Patient Time: Total time spent is greater than 50% in coordination of care (as documented) at patient's floor/unit and/or counseling patient: Time with patient: 15 - 24 minutes Quality Stroke Does the patient have a stroke diagnosis?: No VTE Prior VTE?: No VTE Risk Level:: Medical - moderate - high VTE Device Contraindication: Treatment Not Indicated VTE Drug Contraindication: N/A - Med Ordered
--- NOTE | 2021-02-27 10:31 | PM.DS ---
DS: Providers Provider Date of Service: 02/27/21 Date of admission: 02/25/21 05:57 Primary care physician: Shakira Higgins NP Consults: 02/25/21 09:26 Consult to General Surgery Routine Consulting Provider: Ronit Donis Reason for consultation: sbo, crohn dis Has provider been notified: No 02/25/21 11:26 Consult to General Surgery Routine Consulting Provider: Ronit Donis Reason for consultation: small CASEY Has provider been notified: Yes DS: Diagnosis Discharge Diagnosis (1) Small bowel obstruction: Status: Acute DS: Summary Hospital Course Hospital Course: 25-year-old male with past medical history of Crohn's disease who presents to the hospital with abdominal pain.? Patient reports the abdominal pain started yesterday, localized to right above the umbilicus, pain is 10/10, nonradiating, no alleviating or exacerbating factors, denies any nausea vomiting, reports last BM was 10:00 a.m. the day of, he is currently not passing any gas.? Reports that he was in good health prior to this.? He denies any chest pain, no urinary symptoms, no lower extremity edema, no headache or change in vision, no numbness tingling or weakness. On arrival to the ED hemodynamically stable with no significant abnormal vitals Labs on arrival significant for WBC count of 13.9, ALT of 49, otherwise unremarkable Abdominal pelvic few mildly prominent fecalized small bowel loops in right lower quadrant with adjacent mesenteric stranding and small amount of free fluid suspicious for sequelae of small-bowel obstruction. Hospital course: Patient was admitted for Crohn disease flare and possible is Sbo: Started on IV antibiotics, seen by infectious disease and surgery: Patient subsequently seems to be improving and passing bowels, abdominal pain resolved, tolerating food well. Discussed with GI patient can go home with IV antibiotics for now, did not recommend steroids since patient improved without it. Further management outpatient as per GI and patient is aware to follow up with GI outpatient. Above management discussed with the patient in detail length he understand and in agreement with the above plan, time spent 50 minutes and 50% time spent on counseling. Significant findings: As above. Procedures performed: None. Treatment and response: As above. Complications: None. Time Spent with Patient Time attestation: Total time spent providing and/or coordinating discharge services: Discharge coordination time: Greater than 30 minutes Quality: Stroke Does the patient have a stroke diagnosis?: No Physical Exam Vital Signs: Vital Signs: Last Vital Signs Temp 97.6 F 02/27/21 07:18 Pulse 68 02/27/21 07:18 Resp 18 02/27/21 07:18 BP 131/62 02/27/21 07:18 Pulse Ox 98 02/27/21 07:18 Body Mass Index 40.1 Physical exam: Appearance: Alert.? Oriented X3.? not in distress.? Eyes: Pupils equal, round and reactive to light.? Sclera nonicteric.? ENT: Pharynx normal.? Moist mucous membranes. cvs: rrr, [id number] , no murmur res: clear to auscultation ,no rhonchii or wheezing abd: no rebound or guarding ,nt, bs present. ext pulses present , no cyanosis ,Gait well balanced well coordinated. neuro: axo3 , nonfocal. DS: Data Data Completed and Pending Labs on day of discharge: Laboratory Results - last 24 hr 02/26/21 02/26/21 09:35 09:35 Stool Leukocytes, Qual NEGATIVE C. difficile Tox B Gene NEGATIVE Preliminary micro results at discharge 02/26/21 09:35 Stool Culture - Preliminary Stool Normal so far. 02/25/21 01:03 Blood Culture - Preliminary Blood - Venous No growth after 48 hours. 02/25/21 01:00 Blood Culture - Preliminary Blood - Venous No growth after 48 hours. Discharge Plan Discharge Patient Disposition: Home, Self-Care Discharge Diagnosis: crohn dis flare Referrals: Sriram Khan MD [Physician] - 1 Week (fu outpatiently) Shakira Higgins NP [Primary Care Provider] - 1 Week Discharge Medications: New cefuroxime axetil 500 mg tablet 500 mg PO BID Qty: 10 RF: 0 metronidazole 500 mg tablet 500 mg PO BID Qty: 10 RF: 0 Continued cyclobenzaprine 10 mg tablet 10 mg PO BID PRN (Reason: muscle spasm) Qty: 10 RF: 0 meloxicam [Mobic] 15 mg tablet 15 mg PO DAILY PRN (Reason: Pain) RF: 0 multivitamin Tablet 1 tab PO DAILY RF: 0 Held ibuprofen 800 mg tablet 800 mg PO Q8H PRN (Reason: pain) Qty: 20 RF: 0 Hold Instructions: Resume on 03/03/21. Discharge Orders: Discharge Order (Routine); Ordered 02/27/21 Ordered By: Usman Green Diet: advance to usual diet Activity on Discharge: As tolerated Stand Alone Forms: Patient Portal Discharge page Care Plan Goals: Patient was admitted for Crohn disease flare and possible is Sbo: Started on IV antibiotics, seen by infectious disease and surgery: Patient subsequently seems to be improving and passing bowels, abdominal pain resolved, tolerating food well. Discussed with GI patient can go home with IV antibiotics for now, did not recommend steroids since patient improved without it. Further management outpatient as per GI and patient is aware to follow up with GI outpatient. . Health Concerns: As above. Plan of Treatment: As above. Assessment: As above.
== END 2021-02-27 11:35 | disposition home or self-care (01) | DRG 245 ==
LOC: HO.ED 02-25 03:48 → HO.EDOVER 02-25 06:01 → HO.IMC 02-25 18:11
PROVIDERS: Internal Medicine Gastroenterology; Admitting Provider Internal Medicine; Emergency Provider Student in an Organized Health Care Education/Training Program; PCP Hospitalist; Visit Provider Internal Medicine
DX: K50.912 Crohn's disease, unspecified, with intestinal obstruction (principal); Z20.822 Contact with and (suspected) exposure to COVID-19; Z87.891 Personal history of nicotine dependence; Z79.1 Long term (current) use of non-steroidal anti-inflammatories (NSAID); Z88.0 Allergy status to penicillin; Z79.899 Other long term (current) drug therapy
CPT/HCPCS: 36415; 74177; 80048; 80053; 81003; 83605; 85025; 86140; 87040; 87045; 87046; 87493; 87635; 89055; 93005; 96361; 96365; 96375; 99285; J0696; J1170; J1650; J1885; J2270; J2405; Q9967

== ENCOUNTER 2021-04-29 14:29 | Outpatient (REF) | payer OTHER, SELFPAY ==
[2021-04-29 15:50] LABS: MANUAL DIFF FLAG NO
[2021-04-29 16:02] LABS: Basophils Percent Auto 0.5 % (0-2); Eosinophils Absolute Auto 0.1 X10*3/uL (0.0-0.4); Eosinophils Percent Auto 1.5 % (0-4); Hematocrit 49.5 % (42.0-52.0); Imm Gran Abs Auto 0.02 X10*3/uL (0.00-0.03); Imm Gran Pct Auto 0.3 % (0.0-0.4); Lymphocytes Absolute Auto 1.9 X10*3/uL (1.2-4.9); Lymphocytes Percent Auto 24.2 % (20-40); Mean Corpuscular HGB Conc 32.3 g/dl (31.0-36.0); Mean Corpuscular Hemoglobin 29.3 pg (27.0-33.0); Mean Corpuscular Volume 90.5 fL (80.0-98.0); Mean Platelet Volume 10.3 fL (9.4-12.4); Monocytes Absolute Auto 0.6 X10*3/uL (0.1-1.2); Monocytes Percent Auto 8.2 % (2-11); Neutrophils Absolute Auto 5.1 x10*3/uL (2.0-8.3); Neutrophils Percent Auto 65.3 % (45-73); Platelet Count 279 X10*3/uL (160-400); Red Blood Count 5.47 X10*6/uL (4.60-5.80); Red Cell Distribution Width 12.7 % (11.0-16.0); White Blood Count 7.8 X10*3/uL (4.8-10.8)
[2021-04-29 16:26] LABS: Alanine Aminotransferase 53 U/L (0-40); Albumin Level 4.7 g/dL (3.5-5.0); Alkaline Phosphatase 69 U/L (39-117); Anion Gap 14 (12-20); Aspartate Amino Transferase 28 U/L (5-37); Bilirubin Total 0.6 mg/dL (0.0-1.0); Blood Urea Nitrogen 10 mg/dL (9-16); C Reactive Protein 0.38 mg/dL (< or = 0.50); Calcium 10.1 mg/dL (8.4-10.2); Carbon Dioxide 26 mmol/L (22-29); Chloride 105 mmol/L (96-108); Estimated Glomerular Filt Rate > 60; Glucose Random 84 mg/dL (60-115); Potassium 4.6 mmol/L (3.3-5.1); Sodium 140 mmol/L (135-145); Total Protein 7.8 g/dL (6.5-8.0)
[2021-04-29 16:47] LABS: Ferritin 187 ng/mL (20-250); Vitamin D 25-OH Total 14.3 ng/mL (>30)
[2021-04-29 17:06] LABS: Folate > 20.0 ng/mL (> or = 4.0); Vitamin B12 392 pg/mL (200-900)
[2021-04-30 04:43] LABS: ~HepC Num1 0.12 S/CO (0.00-0.79); ~Hepatitis C Antibody Nonreactive (Nonreactive)
[2021-04-30 04:56] LABS: HBS Num1 0.39 mIU/mL (0-7.99); HBc Num1 0.07 S/CO (0.00-0.79); HBsAGNum1 0.25 S/CO (0.00-0.99); Hepatitis A Antibody IgM 0.31 Index (0-0.79); Hepatitis B Core Antibody Nonreactive (Nonreactive); Hepatitis B Surface Antigen Negative (Negative); ~Hepatitis A Antibody IgM Nonreactive (Nonreactive); ~Hepatitis B Surface Antibody NONREACTIVE (Nonreactive)
[2021-05-01 20:51] LABS: TS Negative Control Passed; TS Panel A 0; TS Panel B 0; TS Positive Control Passed; TSpotTB Negative (Negative)
[2021-05-01 21:47] LABS: Zinc 71 mcg/dL (60-130)
[2021-05-02 18:12] LABS: Alpha-Tocopherol 11.5 mg/L (5.7-19.9); Vitamin A 43 mcg/dL (38-98)
[2021-05-03 15:36] LABS: Vitamin C 0.9 mg/dL (0.2-2.1)
[2021-05-03 17:57] LABS: Vitamin B5 (Pantothenic Acid) 43 ng/mL (<275)
[2021-05-03 18:36] LABS: Nicotinamide 35 ng/mL; Vit B3 - Nicotinic Acid <20 ng/mL
[2021-05-04 13:41] LABS: Vitamin B6 16.3 ng/mL (2.1-21.7)
[2021-05-05 10:36] LABS: Vitamin K1 351 pg/mL (130-1500)
== END 2021-04-29 14:30 | disposition home or self-care (01) ==
LOC: HO.LAB 14:29
PROVIDERS: PCP Hospitalist; Referring Provider Hospitalist; Visit Provider Internal Medicine Gastroenterology
DX: K50.90 Crohn's disease, unspecified, without complications (principal); K75.81 Nonalcoholic steatohepatitis (NASH); Z87.891 Personal history of nicotine dependence
CPT/HCPCS: 36415; 80053; 82180; 82306; 82607; 82728; 82746; 84207; 84446; 84590; 84591; 84597; 84630; 85025; 86140; 86481; 86704; 86706; 86709; 86803; 87340; 99212

== ENCOUNTER 2021-05-01 11:32 | Outpatient (REF) | payer OTHER, SELFPAY ==
[2021-05-07 15:51] LABS: Lactoferrin, Fecal, Quant. <30.0 mcg/mL
== END 2021-05-01 11:33 | disposition home or self-care (01) ==
LOC: HO.LNP 11:32
PROVIDERS: Visit Provider Internal Medicine Gastroenterology
DX: K50.90 Crohn's disease, unspecified, without complications (principal)
CPT/HCPCS: 83631

== ENCOUNTER 2021-05-05 10:37 | Emergency (ER) | payer OTHER, SELFPAY ==
[2021-05-05 10:46] VITALS: BP 138/77; PULSE 75; RESP 17; TEMP 37.2; O2SAT 98; BMI 41.0
--- NOTE | 2021-05-05 11:01 | ED_ITS ---
HPI - Back Pain/Injury General Chief Complaint: Back Pain/Injury Stated Complaint: Back pain Time Seen by Provider: 05/05/21 11:01 Source: patient Mode of arrival: ambulatory Limitations: no limitations History of Present Illness HPI Narrative: Patient is a 25 year old male presenting to the emergency department today with upper back pain. Patient states that yesterday he was attempting to climb into a vehicle, when he hit his head against the top of the car, causing this upper back pain. Patient denies any loss of consciousness with the incident. Patient denies any other injuries in the incident. He describes the pain as a tugging sensation towards the top of his back. Patient states the pain does not radiate, and he is able to move his neck in all directions. Patient denies any dizziness, lightheadedness, abdominal pain, nausea, vomiting, fever, chills, blurry vision, double vision, loss of vision, chest pain, difficulty breathing, shortness of breath, night sweats, pain with urination, increased urinary frequency, increased urinary urgency, blood in his urine or stool, syncope or a near syncopal episode, recent trauma or falls, bowel incontinence, bladder incontinence, bowel retention, bladder retention, or any other complaints at this time. MD elicited complaint: back pain Onset (ago): day(s) (1) Timing: constant Severity: mild Pain scale (0-10): 3 Similar Symptoms Previously: No Quality: dull Location: thoracic spine Radiation: none Exacerbating factors: none Relieving factors: none Associated symptoms: denies other symptoms Work related injury: No Related Data Home Medications Medication Instructions Recorded Confirmed meloxicam 15 mg tablet (Mobic) 15 mg PO DAILY PRN 02/25/21 03/05/21 multivitamin 1 tab PO DAILY 02/25/21 03/05/21 Previous Rx's Medication Instructions Recorded cyclobenzaprine 10 mg tablet 10 mg PO BID PRN #10 tab 10/30/20 ibuprofen 800 mg tablet 800 mg PO Q8H PRN #20 tab 10/30/20 metronidazole 500 mg tablet 500 mg PO BID #10 tab 02/27/21 clonidine HCl 0.1 mg tablet 0.1 mg PO BID #60 tab 03/05/21 vedolizumab 300 mg intravenous 300 mg IV Q2W 14 Days #1 ea 04/29/21 solution (Entyvio) cyclobenzaprine 10 mg tablet 10 mg PO TID 7 Days #21 tab 05/05/21 naproxen 500 mg tablet 500 mg PO BID 7 Days #14 tab 05/05/21 Allergies Allergy/AdvReac Type Severity Reaction Status Date / Time penicillin V Allergy Intermediate rash Verified 04/30/21 10:57 Review of Systems Constitutional: Constitutional: Reports no additional constitutional complaints, Denies chills, Denies fever(s) and Denies night sweats Eyes: Eyes: Reports no additional eye complaints, Denies blurry vision, Denies change in vision, Denies diplopia, Denies eye discharge, Denies loss of vision and Denies eye pain ENT: Denies dizziness Cardiovascular: Cardiovascular: Reports no additional cardiovascular complaints, Denies chest pain, Denies lightheadedness, Denies Loss of Consc iousness and Denies dyspnea Respiratory: Respiratory: Reports no additional respiratory complaints and Denies dyspnea Gastrointestinal: Gastrointestinal: Reports no additional gastrointestinal complaints, Denies abdominal pain, Denies melena, Denies hematochezia, Denies change in bowel habits and Denies change in stool character Genitourinary: Genitourinary: Reports no additional male genitourinary complaints, Denies hematuria, Denies oliguria, Denies difficulty urinating, Denies dysuria, Denies urinary frequency, Denies urinary hesitancy, Denies urinary incontinence and Denies urinary urgency Musculoskeletal: Musculoskeletal: Reports no additional musculoskeletal complaints, Reports back pain (Upper), Denies numbness and Denies tingling Neurologic: Denies dizziness, Denies loss of vision, Denies numbness and Denies tingling Psychiatric: Psychiatric: Reports no additional psychiatric complaints Endocrine: Endocrine: Reports no additional endocrine complaints Hematologic/Lymphatic: Hematologic/Lymphatic: Reports no additional hematologic/lymphatic complaints Allergic/Immunologic: Allergic/Immunologic: Reports no additional allergic/immunologic complaints FOR[facility]LY [facility] Past Medical History Attestation statement: The following information was validated with the patient. Medical History Acquired genu valgum of both knees Acute Crohn's disease Arthritis Depression Eczema Scoliosis Spondylosis of lumbosacral spine without myelopathy Surgical History History of arthroscopy of both knees History of esophagogastroduodenoscopy (EGD) Hx of colonoscopy Family History Family History Father No problems noted. Mother Hypertension Maternal Grandfather Diabetes Stroke Other Anemia Social History Social History Household Members: Friend(s) Housing: Apartment Do you presently have visiting nurse or other home services: No Alcohol intake: current Alcohol intake frequency: holidays/special occasions only Patient Tobacco Use Status: Former Tobacco user e-Cigarette/Vaping Use: Never Used Second Hand Smoke Exposure: No Advance Directives: No Advance Directives Information Provided: No service: No Current occupational status: employed Cognitive needs: No Hearing needs: No Vision needs: No Physical Exam Vital Signs: Vital Signs: Last Vital Signs Temp 99.0 F 05/05/21 10:46 Pulse 75 05/05/21 10:46 Resp 17 05/05/21 10:46 BP 138/77 05/05/21 10:46 Pulse Ox 98 05/05/21 10:46 BMI result Body Mass Index 41.0 Const: General: cooperative, healthy appearing and comfortable Nutritional Appearance: well nourished Orientation/consciousness: patient oriented x3 Limitations: no limitations HENMT: Head: Yes normal to inspection and Yes atraumatic Ears: hearing grossly normal bilaterally and external ears normal General nose exam: Normal external nose present, no nasal discharge noted and no epistaxis Face and sinus: Yes normal facial exam, No abrasion and No laceration Mouth: Normal oral and palatal mucosa present, no drooling and no muffled voice Eyes: General: appearance normal, both eyes and all related structures Periorbital: periorbital findings normal Eyelids: Yes eyelids normal Conjunctivae: conjunctivae normal Pupils: Equal, round and reactive pupils present EOM: EOMs intact bilaterally Neck: Neck: Yes normal visual inspection, Yes full ROM, Yes no lymphadenopathy, Yes no meningeal signs, Yes trachea midline and Yes supple Chest: Chest palpation & inspection: normal inspection of the chest Resp: Effort & Inspection: normal respiratory effort and able to speak in complete sentences Auscultation: clear to auscultation bilaterally Cardio: Jugular venous distension: no JVD Rate: regular rate Rhythm: regular rhythm GI: Inspection: Yes normal to inspection Back/Spine/Pelvis: Cervical Spine: cervical ROM normal Thoracic/Lumbar Spine: thoracic and lumbar spine normal to inspection, thoraco-lumbar ROM normal and straight leg raise negative bilaterally Neuro: General: patient oriented x3, moves all extremities and no meningeal signs Cranial nerves: Yes Equal, round and reactive pupils present Cognition (Neuro): normal cognition Motor exam (neuro): 5/5 motor strength present throughout Sensory Exam: Normal double simultaneous stimulation for sensation Coordination: [id number] test normal Pupils: Normal pupillary reactivity/response: bilateral Extrem: General: Yes normal to inspection, Yes full ROM and Yes capillary refill normal Psych: Appearance: grossly normal Mental Status: mental status grossly normal Affect: normal affect Attitude: cooperative Thought process: Normal thought process present Thought content: Normal thought content present Insight: Good insight present (Psych) MDM - Back Pain/Injury MDM Narrative Medical decision making narrative: Patient is a 25 year old male presenting to the emergency department today with upper back pain. Patient's physical exam was unremarkable. I explained my physical exam findings to the patient. I answered all questions asked by the patient. Together, we discussed, the risks and benefits of obtaining imaging of the patient's neck and back. Patient stated, he did not want imaging at this time. Patient received IM Toradol and p.o. Flexeril which he stated helped his symptoms significantly. I stressed the importance of the patient taking his medication as prescribed. I stressed the importance of the patient following up with his primary care provider. I stressed the importance of the patient following up with Orthopedics, as needed. I stressed the importance of the patient returning to the emergency department immediately if his symptoms were to worsen or if he were to develop any dizziness, shortness of breath, difficulty breathing, chest pain, blurry vision, loss of vision, nausea, vomiting, abdominal pain, fever, chills, back pain, or any other complaints. Patient verbalized agreement and understanding with this treatment plan and discharge. Differential Diagnosis Differential diagnosis: Likely thoracic back pain (Cervical strain, cervical sprain) Medical Records Attestation: I reviewed the patient's medical records. Discharge Plan Discharge Clinical Impression: Cervical strain, acute, Thoracic back pain Patient Disposition: Home, Self-Care Instructions: Cervical Strain (ED), Cervical Sprain (ED), Thoracic Pain (ED) Additional Instructions: Call to schedule a follow up appointment with an Orthopedic provider. Prescriptions: New cyclobenzaprine 10 mg tablet 10 mg PO TID 7 Days Qty: 21 RF: 0 naproxen 500 mg tablet 500 mg PO BID 7 Days Qty: 14 RF: 0 No Action Entyvio 300 mg recon soln 300 mg IV Q2W 14 Days Qty: 1 RF: 8 ibuprofen 800 mg tablet 800 mg PO Q8H PRN (Reason: pain) Qty: 20 RF: 0 Hold Instructions: Resume on 03/03/21. cyclobenzaprine 10 mg tablet 10 mg PO BID PRN (Reason: muscle spasm) Qty: 10 RF: 0 meloxicam [Mobic] 15 mg tablet 15 mg PO DAILY PRN (Reason: Pain) RF: 0 multivitamin Tablet 1 tab PO DAILY RF: 0 metronidazole 500 mg tablet 500 mg PO BID Qty: 10 RF: 0 clonidine HCl 0.1 mg tablet 0.1 mg PO BID Qty: 60 RF: 0 Referrals: Shakira Higgins [employer] [Primary Care Provider] - 2 days Interventions: ED Discharge Assessment Last Done: 05/05/21 11:22 Discharge Date/Time: 05/05/21 11:23 Print Language: Estonian
[2021-05-05] MEDS: Cyclobenzaprine HCl 10 MG TABLET PO (11:19)
[2021-05-05] MEDS: Ketorolac Tromethamine 30 MG/ML VIAL IM (11:19)
== END 2021-05-05 11:23 | disposition home or self-care (01) ==
PROVIDERS: Emergency Provider Emergency Medicine; PCP Hospitalist
DX: M54.6 Pain in thoracic spine (principal); S16.1XXA Strain of muscle, fascia and tendon at neck level, initial encounter; W22.09XA Striking against other stationary object, initial encounter; Y93.89 Activity, other specified; Y92.810 Car as the place of occurrence of the external cause; Y99.9 Unspecified external cause status
CPT/HCPCS: 96372; 99283; 99284; J1885

== ENCOUNTER → 2021-05-06 10:44 | Outpatient (BNVA) | payer OTHER, SELFPAY | PROVIDERS: PCP Hospitalist; Referring Provider Hospitalist; Visit Provider Internal Medicine Gastroenterology | DX: Z23 Encounter for immunization (principal) | CPT/HCPCS: 90471; 90746 ==

== ENCOUNTER 2021-05-15 10:44 | Outpatient (REF) | payer OTHER, SELFPAY | END 2021-05-15 10:45 | disposition home or self-care (01) | LOC: HO.MDS 10:44 | PROVIDERS: PCP Hospitalist; Visit Provider Internal Medicine Gastroenterology | DX: K50.90 Crohn's disease, unspecified, without complications (principal) | CPT/HCPCS: 96365; J3380 ==

== ENCOUNTER 2021-05-29 10:25 | Outpatient (REF) | payer OTHER, SELFPAY | END 2021-05-29 10:26 | disposition home or self-care (01) | LOC: HO.MDS 10:25 | PROVIDERS: PCP Hospitalist; Visit Provider Internal Medicine Gastroenterology | DX: K50.90 Crohn's disease, unspecified, without complications (principal) | CPT/HCPCS: 96365; J3380 ==

== ENCOUNTER 2021-06-05 10:28 | Outpatient (REF) | payer OTHER, SELFPAY ==
[2021-06-05 10:51] LABS: MANUAL DIFF FLAG NO
[2021-06-05 11:29] LABS: Basophils Absolute Auto 0.1 X10*3/uL (0.0-0.2); Basophils Percent Auto 1.2 % (0-2); Eosinophils Absolute Auto 0.5 X10*3/uL (0.0-0.4); Eosinophils Percent Auto 10.4 % (0-4); Hematocrit 46.2 % (42.0-52.0); Hemoglobin 15.5 g/dl (14.0-18.0); Imm Gran Abs Auto 0.01 X10*3/uL (0.00-0.03); Imm Gran Pct Auto 0.2 % (0.0-0.4); Lymphocytes Absolute Auto 1.6 X10*3/uL (1.2-4.9); Lymphocytes Percent Auto 30.8 % (20-40); Mean Corpuscular HGB Conc 33.5 g/dl (31.0-36.0); Mean Corpuscular Hemoglobin 29.6 pg (27.0-33.0); Mean Corpuscular Volume 88.2 fL (80.0-98.0); Mean Platelet Volume 10.4 fL (9.4-12.4); Monocytes Absolute Auto 0.4 X10*3/uL (0.1-1.2); Monocytes Percent Auto 7.9 % (2-11); Neutrophils Absolute Auto 2.6 x10*3/uL (2.0-8.3); Neutrophils Percent Auto 49.5 % (45-73); Platelet Count 221 X10*3/uL (160-400); Red Blood Count 5.24 X10*6/uL (4.60-5.80); White Blood Count 5.2 X10*3/uL (4.8-10.8)
[2021-06-05 11:49] LABS: Alanine Aminotransferase 43 U/L (0-40); Albumin Level 4.4 g/dL (3.5-5.0); Alkaline Phosphatase 76 U/L (39-117); Anion Gap 13 (12-20); Aspartate Amino Transferase 68 U/L (5-37); Bilirubin Total 0.5 mg/dL (0.0-1.0); Blood Urea Nitrogen 8 mg/dL (9-16); C Reactive Protein 0.42 mg/dL (< or = 0.50); Calcium 9.3 mg/dL (8.4-10.2); Carbon Dioxide 25 mmol/L (22-29); Chloride 108 mmol/L (96-108); Estimated Glomerular Filt Rate > 60; Glucose Random 100 mg/dL (60-115); Potassium 4.9 mmol/L (3.3-5.1); Sodium 141 mmol/L (135-145); Total Protein 6.8 g/dL (6.5-8.0)
== END 2021-06-05 10:29 | disposition home or self-care (01) ==
LOC: HO.LAB 10:28
PROVIDERS: PCP Hospitalist; Visit Provider Internal Medicine Gastroenterology
DX: K50.90 Crohn's disease, unspecified, without complications (principal)
CPT/HCPCS: 36415; 80053; 85025; 86140

== ENCOUNTER → 2021-06-16 13:46 | Outpatient (BNVA) | payer OTHER, SELFPAY | PROVIDERS: PCP Hospitalist; Referring Provider Hospitalist; Visit Provider Internal Medicine Gastroenterology | DX: K50.90 Crohn's disease, unspecified, without complications (principal) | CPT/HCPCS: 99212 ==

== ENCOUNTER 2021-06-19 14:09 | Emergency (ER) | payer OTHER, SELFPAY ==
--- NOTE | ~2021-06-19 | XR_ITS ---
EXAMINATION: XR FOOT, LEFT CLINICAL INFORMATION: Injury. Pain. COMPARISON: 02/24/2013 TECHNIQUE: AP, lateral, and oblique views of the left foot. FINDINGS: No fracture or dislocation. Alignment is anatomic. Joint spaces are maintained. Mild soft tissue swelling of the forefoot. Small osteophytes at the tibiotalar articulation. XR/XR foot LT 2V IMPRESSION: No acute osseous abnormality. Mild soft tissue swelling of the forefoot.
[2021-06-19 14:16] VITALS: BP 156/82; PULSE 62; RESP 16; TEMP 36.7; O2SAT 100; BMI 39.8
--- NOTE | 2021-06-19 14:31 | ED_ITS ---
HPI - Extremity Injury (Lower) General Chief Complaint: Extremity Injury, Lower Stated Complaint: dropped 50lb weight on l foot Time Seen by Provider: 06/19/21 14:27 Source: patient Mode of arrival: ambulatory Limitations: no limitations History of Present Illness HPI Narrative: 25-year-old male here with reports of left foot pain after dropping a heavy weight on it lasted the gym. Patient denies numbness, tingling, weakness, fever Related Data Home Medications Medication Instructions Recorded Confirmed multivitamin 1 tab PO DAILY 02/25/21 03/05/21 atomoxetine 18 mg capsule 18 mg PO DAILY cap 06/04/21 (Strattera) naproxen 500 mg tablet 500 mg PO BID 06/18/21 Previous Rx's Medication Instructions Recorded cyclobenzaprine 10 mg tablet 10 mg PO BID PRN #10 tab 10/30/20 vedolizumab 300 mg intravenous 300 mg IV Q2W 14 Days #1 ea 04/29/21 solution (Entyvio) lidocaine 4 % topical patch 1 patch TOPICAL DAILY 30 Days #30 06/04/21 (Aspercreme (lidocaine)) miscellaneous medical supply #1 ea 06/04/21 (Blood Pressure Cuff) budesonide 3 mg 9 mg PO DAILY 30 Days #90 ea 06/16/21 capsule,delayed,extended release clonidine HCl 0.1 mg tablet 0.1 mg PO TID 90 Days #270 tab 06/18/21 Allergies Allergy/AdvReac Type Severity Reaction Status Date / Time penicillin V Allergy Intermediate rash Verified 06/19/21 14:16 Review of Systems Review of Systems: Yes all other systems are reviewed and are negative Constitutional: Constitutional: Reports no additional constitutional complaints, Denies body ache(s), Denies chills, Denies fever(s), Denies headache(s) and Denies weakness Eyes: Eyes: Reports no additional eye complaints and Denies change in vision ENT: Reports system reviewed and no additional complaints, except as documented, Denies dizziness, Denies headache(s), Denies nasal congestion, Denies nasal discharge and Denies neck pain Cardiovascular: Cardiovascular: Reports no additional cardiovascular complaints, Denies chest pain, Denies leg edema and Denies dyspnea Respiratory: Respiratory: Reports no additional respiratory complaints, Denies cough and Denies dyspnea Gastrointestinal: Gastrointestinal: Reports no additional gastrointestinal complaints, Denies abdominal pain, Denies diarrhea, Denies nausea and Denies vomiting Genitourinary: Genitourinary: Denies urinary incontinence Musculoskeletal: Musculoskeletal: Reports no additional musculoskeletal complaints, Denies back pain, Reports arthralgias, Denies joint swelling, Denies neck pain, Denies numbness and Denies tingling Integumentary/Breasts: Skin/Breast: Reports system reviewed and no additional complaints, except as docu and Denies rash Neurologic: Reports system reviewed and no additional complaints, except as documented, Denies Abnormal speech present, Denies dizziness, Denies headache(s), Denies numbness, Denies tingling and Denies weakness PMFSH Past Medical History Attestation statement: The following information was validated with the patient. Source: old records reviewed and nursing notes reviewed Medical History Acquired genu valgum of both knees Acute Crohn's disease ADHD (attention deficit hyperactivity disorder) Arthritis Depression Eczema Scoliosis Spondylosis of lumbosacral spine without myelopathy Surgical History History of arthroscopy of both knees History of esophagogastroduodenoscopy (EGD) Hx of colonoscopy Family History Family History Father No problems noted. Mother Hypertension Maternal Grandfather Diabetes Stroke Other Anemia Social History Social History Household Members: Friend(s) Housing: Apartment Do you presently have visiting nurse or other home services: No Alcohol intake: current Alcohol intake frequency: holidays/special occasions only Patient Tobacco Use Status: Former Tobacco user e-Cigarette/Vaping Use: Never Used Second Hand Smoke Exposure: No Advance Directives: No Advance Directives Information Provided: Yes service: No Current occupational status: employed Cognitive needs: No Hearing needs: No Vision needs: No Physical Exam Vital Signs: Vital Signs: Last Vital Signs Temp 98.1 F 06/19/21 14:16 Pulse 62 06/19/21 14:16 Resp 16 06/19/21 14:16 BP 156/82 H 06/19/21 14:16 Pulse Ox 100 06/19/21 14:16 BMI result Body Mass Index 39.8 Const: General: cooperative, healthy appearing, comfortable and no acute distress Orientation/consciousness: patient oriented x3 Limitations: no limitations HENMT: Head: Yes normal to inspection Ears: hearing grossly normal bilaterally General nose exam: Normal external nose present Face and sinus: Yes normal facial exam Mouth: Normal oral and palatal mucosa present Throat: Yes posterior oropharynx normal Eyes: General: appearance normal, both eyes and all related structures Pupils: Equal, round and reactive pupils present Neck: Neck: Yes normal visual inspection Chest: Chest palpation & inspection: normal inspection of the chest Resp: Effort & Inspection: normal respiratory effort Auscultation: clear to auscultation bilaterally Cardio: Rate: regular rate Rhythm: regular rhythm Peripheral pulses: Peripheral pulses 2+ throughout GI: Inspection: Yes normal to inspection Palpation (GI): Soft to palpation and nontender Auscultation: normal bowel sounds Back/Spine/Pelvis: Thoracic/Lumbar Spine: thoracic and lumbar spine normal to inspection Skin: General skin exam: no rashes or lesions noted Neuro: General: patient oriented x3, no focal motor deficits and normal sensation to monofilament Cranial nerves: Yes Equal, round and reactive pupils present Cognition (Neuro): normal cognition Speech: No Abnormal speech present Gait exam (Neuro): Normal gait present Motor exam (neuro): 5/5 motor strength present throughout Extrem: Other: There is tenderness and swelling to the distal dorsal foot. There is full range of motion. Neurovascularly intact distally. Normal cap refill. Palpable DP and PT pulses. General: Yes normal to inspection Course Course Course Narrative: 25-year-old male here with reports of left foot pain after a crush injury which occurred last evening Will check x-rays 1530-x-ray show no bony abnormality. Likely contusion. Patient placed in a postoperative shoe and given crutches for ambulation. Reviewed worrisome signs and symptoms of when to return to the emergency department. Comfortable discharge home. MDM - Extremity Injury (Lower) MDM Narrative Medical decision making narrative: Contusion versus fracture Medical Records Attestation: I reviewed the patient's medical records. Lab Data Attestation: I reviewed the patient's lab results. Imaging Data foot xray: Attestation: I personally reviewed and interpreted this imaging study as follows: Radiologist's impression: [address] [address] XRay Report Signed Patient: Tyler Mccann MR#: [id number] : 1995 Acct:[id number] Age/Sex: 25 / M ADM Date: 06/19/21 Loc: HO.ED Attending Dr: Ordering Physician: Valerie Villarreal NP Date of Service: 06/19/21 Procedure(s): XR foot LT 2V Accession Number(s): [id number] cc: Valerie Villarreal NP~ EXAMINATION: XR FOOT, LEFT CLINICAL INFORMATION: Injury. Pain.? COMPARISON: 02/24/2013? TECHNIQUE: AP, lateral, and oblique views of the left foot. FINDINGS: No fracture or dislocation. Alignment is anatomic. Joint spaces are maintained. Mild soft tissue swelling of the forefoot. Small osteophytes at the tibiotalar articulation.? XR/XR foot LT 2V IMPRESSION: No acute osseous abnormality. Mild soft tissue swelling of the forefoot. Procedures Procedure Narrative Procedure Narrative: Postoperative shoe and crutches Discharge Plan Discharge Clinical Impression: Contusion of foot, left Patient Disposition: Home, Self-Care Instructions: Foot Contusion (ED) Additional Instructions: Use the shoe and crutches for the next few days until a bur to bear weight experiencing pain Rest the foot Elevate the foot Ice to the area Motrin or Tylenol for pain as needed Prescriptions: No Action Entyvio 300 mg recon soln 300 mg IV Q2W 14 Days Qty: 1 8RF Rx Instructions: Infuse 300mg IV at week 0, 2, 6, then every 8 weeks cyclobenzaprine 10 mg tablet 10 mg PO BID PRN (Reason: muscle spasm) Qty: 10 0RF multivitamin Tablet 1 tab PO DAILY 0RF atomoxetine [Strattera] 18 mg capsule 18 mg PO DAILY 0RF (DME) Blood Pressure Cuff Misc See Rx Instructions .ROUTE .MEDSUPPLY Qty: 1 0RF Rx Instructions: blood pressure checks daily and as needed large cuff please lidocaine [Aspercreme (lidocaine HCl)] 4 % adhesive patch,medicated 1 patch topical DAILY 30 Days Qty: 30 4RF clonidine HCl 0.1 mg tablet 0.1 mg PO TID 90 Days Qty: 270 1RF budesonide 3 mg capsule,delayed,extend.release 9 mg PO DAILY 30 Days Qty: 90 1RF Rx Instructions: open capsules and mix with apple sauce naproxen 500 mg tablet 500 mg PO BID 0RF Referrals: Shakira Higgins NP [Primary Care Provider] - 1 week (For persistent pain) Interventions: ED Discharge Assessment Last Done: 06/19/21 15:31
== END 2021-06-19 15:41 | disposition home or self-care (01) ==
PROVIDERS: Emergency Provider Emergency Medicine; PCP Hospitalist
DX: S90.32XA Contusion of left foot, initial encounter (principal); W20.8XXA Other cause of strike by thrown, projected or falling object, initial encounter; Y93.9 Activity, unspecified; Y92.9 Unspecified place or not applicable; Y99.9 Unspecified external cause status
CPT/HCPCS: 73620; 99283

== ENCOUNTER 2021-06-26 10:18 | Outpatient (REF) | payer OTHER, SELFPAY | END 2021-06-26 10:19 | disposition home or self-care (01) | LOC: HO.MDS 10:18 | PROVIDERS: PCP Hospitalist; Visit Provider Internal Medicine Gastroenterology | DX: K50.90 Crohn's disease, unspecified, without complications (principal) | CPT/HCPCS: 90746; 96365; J3380 ==

== ENCOUNTER 2021-08-13 20:03 | Emergency (ER) | payer OTHER, SELFPAY ==
--- NOTE | ~2021-08-13 | CT_ITS ---
EXAMINATION: CT ABDOMEN AND PELVIS WITHOUT CONTRAST CLINICAL INFORMATION: Crohn's disease, epigastric pain COMPARISON: 02/25/2021 TECHNIQUE: Multidetector volumetric imaging was performed from the superior aspect of the liver through the pubic symphysis. Sagittal and coronal reformatted images were obtained on the technologist's workstation. This CT examination was performed using dose optimization techniques as appropriate, variously including the following: *Automated exposure control *Adjustment of mA and/or kV according to patient size (this includes techniques or standardized protocols for targeted exams where dose is matched to indication/reason for exam; i.e. extremities or head) *Use of iterative reconstruction technique DLP: 857 mGy-cm FINDINGS: LUNG BASES: The visualized lung bases are unremarkable. LIVER, GALLBLADDER, AND BILIARY TREE: The liver is normal in size, shape, and attenuation. No focal hepatic lesion or biliary ductal dilatation is present. The gallbladder is unremarkable with no evidence of radiopaque gallstones, gallbladder wall thickening, or obvious pericholecystic inflammatory changes. PANCREAS: Unremarkable. SPLEEN: Unremarkable. ADRENAL GLANDS: Unremarkable. KIDNEYS AND URETERS: The kidneys are normal in size, shape, and attenuation. No hydronephrosis, hydroureter, or calculi seen. No perinephric stranding. BLADDER: Unremarkable. GASTROINTESTINAL TRACT: The small and large bowel are unremarkable. The appendix is unremarkable. No free fluid or free air is seen. ABDOMINAL WALL: No significant hernia is appreciated. LYMPH NODES: Normal. VASCULAR: Unremarkable. PELVIC VISCERA: Unremarkable. OSSEOUS STRUCTURES: There is vacuum disc phenomena at L5-S1. CT/CT abdomen pelvis wo con IMPRESSION: No acute findings identified in the abdomen/pelvis.
[2021-08-13 22:21] VITALS: BP 149/73; PULSE 64; RESP 17; O2SAT 98; BMI 35.2
[2021-08-13 22:31] LABS: MANUAL DIFF FLAG NO
[2021-08-13 22:32] LABS: Basophils Absolute Auto 0.1 X10*3/uL (0.0-0.2); Basophils Percent Auto 0.9 % (0-2); Eosinophils Absolute Auto 1.6 X10*3/uL (0.0-0.4); Eosinophils Percent Auto 15.3 % (0-4); Hematocrit 50.1 % (42.0-52.0); Hemoglobin 16.5 g/dl (14.0-18.0); Imm Gran Abs Auto 0.01 X10*3/uL (0.00-0.03); Imm Gran Pct Auto 0.1 % (0.0-0.4); Lymphocytes Absolute Auto 2.8 X10*3/uL (1.2-4.9); Lymphocytes Percent Auto 26.4 % (20-40); Mean Corpuscular HGB Conc 32.9 g/dl (31.0-36.0); Mean Corpuscular Hemoglobin 28.7 pg (27.0-33.0); Mean Corpuscular Volume 87.3 fL (80.0-98.0); Mean Platelet Volume 10.4 fL (9.4-12.4); Monocytes Absolute Auto 0.6 X10*3/uL (0.1-1.2); Neutrophils Absolute Auto 5.4 x10*3/uL (2.0-8.3); Neutrophils Percent Auto 51.3 % (45-73); Platelet Count 221 X10*3/uL (160-400); Red Blood Count 5.74 X10*6/uL (4.60-5.80); Red Cell Distribution Width 12.9 % (11.0-16.0); White Blood Count 10.6 X10*3/uL (4.8-10.8)
[2021-08-13 23:08] LABS: Alanine Aminotransferase 22 U/L (0-40); Albumin Level 4.6 g/dL (3.5-5.0); Alkaline Phosphatase 85 U/L (39-117); Anion Gap 20 (12-20); Aspartate Amino Transferase 27 U/L (5-37); Bilirubin Direct 0.2 mg/dL (0.0-0.5); Bilirubin Total 0.8 mg/dL (0.0-1.0); Blood Urea Nitrogen 11 mg/dL (9-16); Calcium 10.1 mg/dL (8.4-10.2); Carbon Dioxide 19 mmol/L (22-29); Chloride 104 mmol/L (96-108); Estimated Glomerular Filt Rate > 60; Glucose Random 76 mg/dL (60-115); Lipase 17 U/L (8-78); Potassium 5.2 mmol/L (3.3-5.1); Sodium 138 mmol/L (135-145); Total Protein 7.8 g/dL (6.5-8.0)
--- NOTE | 2021-08-13 23:35 | ED.ABDPAIN ---
HPI - Abdominal Pain General Chief Complaint: Abdominal Pain Stated Complaint: abdominal, stomach pain Time Seen by Provider: 08/13/21 23:35 Source: patient Mode of arrival: ambulatory Limitations: no limitations History of Present Illness HPI narrative: Patient with history of Crohn disease on entivio since 05/03 with history of ADHD, depression, obesity comes here for mid abdominal pain started 3 days ago passing normal stool no blood in the stool no nausea no vomiting no fever chills Related Data Home Medications Medication Instructions Recorded Confirmed multivitamin 1 tab PO DAILY 02/25/21 08/13/21 naproxen 500 mg tablet 500 mg PO BID PRN 06/18/21 08/13/21 atomoxetine 25 mg capsule 1 cap PO QAM 08/13/21 08/13/21 Previous Rx's Medication Instructions Recorded cyclobenzaprine 10 mg tablet 10 mg PO BID PRN #10 tab 10/30/20 vedolizumab 300 mg intravenous 300 mg IV Q2W 14 Days #1 ea 04/29/21 solution (Entyvio) lidocaine 4 % topical patch 1 patch TOPICAL DAILY 30 Days #30 06/04/21 (Aspercreme (lidocaine)) miscellaneous medical supply #1 ea 06/04/21 (Blood Pressure Cuff) budesonide 3 mg 9 mg PO DAILY 30 Days #90 ea 06/16/21 capsule,delayed,extended release clonidine HCl 0.1 mg tablet 0.15 mg PO TID 30 Days #135 tab 07/02/21 omeprazole 40 mg capsule,delayed 40 mg PO DAILY #30 cap 08/14/21 release sucralfate 1 gram tablet 1 g PO BID #60 tab 08/14/21 Allergies Allergy/AdvReac Type Severity Reaction Status Date / Time penicillin V Allergy Intermediate rash Verified 08/13/21 22:27 Review of Systems Review of Systems Yes all other systems are reviewed and are negative PMFSH Past Medical History Medical History Acquired genu valgum of both knees Acute Crohn's disease ADHD (attention deficit hyperactivity disorder) Arthritis Depression Eczema Scoliosis Spondylosis of lumbosacral spine without myelopathy Surgical History History of arthroscopy of both knees History of esophagogastroduodenoscopy (EGD) Hx of colonoscopy Family History Family History Father No problems noted. Mother Hypertension Maternal Grandfather Diabetes Stroke Other Anemia Social History Social History Household Members: Friend(s) Housing: Apartment Do you presently have visiting nurse or other home services: No Alcohol intake: current Alcohol intake frequency: holidays/special occasions only Patient Tobacco Use Status: Former Tobacco user e-Cigarette/Vaping Use: Never Used Second Hand Smoke Exposure: No Advance Directives: No service: No Current occupational status: employed Cognitive needs: No Hearing needs: No Vision needs: No Physical Exam ED Vital Signs: Vital Signs - 24 hr 08/13/21 22:21 08/13/21 23:36 Temperature 98.9 F Pulse Rate 64 70 Respiratory Rate 17 16 Blood Pressure 149/73 H 140/63 H Pulse Oximetry 98 98 BMI result Body Mass Index 35.2 Appearance: Alert. Oriented X3. No acute distress. Eyes: No pallor/icterus ENT: Pharynx normal. Oral Mucosa moist Neck: Normal inspection. Neck supple. CVS: Normal heart rate and rhythm. Pulses normal. Respiratory: No respiratory distress. Equal air entry bilateral, no wheezing/rales/rhonchi Abdomen: Soft , tenderness in epigastric area Bowel sounds are present, no mass palpable, no CVA tenderness Skin: Skin warm and dry. Normal skin color. Normal skin turgor. Extremities: No lower extremity edema. No calf tenderness Neuro: Oriented X 3. MDM - Abdominal Pain MDM Narrative Medical decision making narrative: Patient is Crohn's disease with epigastric pain history of partial small-bowel obstruction in the past (03/02) in the same area will get a CT scan I also checked a CRP 0120: Patient CT scan negative for any acute, CRP negative Lab Data Attestation: I reviewed the patient's lab results. Result diagrams: 08/13/21 22:27 08/13/21 22:27 Labs: Lab Results 08/13/21 08/13/21 Range/Units 22:27 22:27 WBC 10.6 (4.8-10.8) X10*3/uL RBC 5.74 (4.60-5.80) X10*6/uL Hgb 16.5 (14.0-18.0) g/dl Hct 50.1 (42.0-52.0) % MCV 87.3 (80.0-98.0) fL MCH 28.7 (27.0-33.0) pg MCHC 32.9 (31.0-36.0) g/dl RDW 12.9 (11.0-16.0) % Plt Count 221 (160-400) X10*3/uL MPV 10.4 (9.4-12.4) fL Immature Gran % (Auto) 0.1 (0.0-0.4) % Neut % (Auto) 51.3 (45-73) % Lymph % (Auto) 26.4 (20-40) % [place] % (Auto) 6.0 (2-11) % Eos % (Auto) 15.3 H (0-4) % Baso % (Auto) 0.9 (0-2) % Lymph # (Auto) 2.8 (1.2-4.9) X10*3/uL [place] # (Auto) 0.6 (0.1-1.2) X10*3/uL Eos # (Auto) 1.6 H (0.0-0.4) X10*3/uL Baso # (Auto) 0.1 (0.0-0.2) X10*3/uL Abs Immat Gran (auto) 0.01 (0.00-0.03) X10*3/uL Absolute Neuts (auto) 5.4 (2.0-8.3) x10*3/uL Absolute Nucleated RBC 0.000 (0.0-0.012) X10*3/uL Nucleated RBC % (auto) 0.0 (0.0-0.2) /100WBC Sodium 138 (135-145) mmol/L Potassium 5.2 H (3.3-5.1) mmol/L Chloride 104 (96-108) mmol/L Carbon Dioxide 19 L (22-29) mmol/L Anion Gap 20 (12-20) BUN 11 (9-16) mg/dL Creatinine 1.00 (0.5-1.4) mg/dL Estim Creat Clear Calc 161.0 Estimated GFR > 60 Random Glucose 76 (60-115) mg/dL Calcium 10.1 D (8.4-10.2) mg/dL Total Bilirubin 0.8 (0.0-1.0) mg/dL Direct Bilirubin 0.2 (0.0-0.5) mg/dL AST 27 D (5-37) U/L ALT 22 (0-40) U/L Alkaline Phosphatase 85 (39-117) U/L C-Reactive Protein 0.46 (< or = 0.50) mg/dL Total Protein 7.8 (6.5-8.0) g/dL Albumin 4.6 (3.5-5.0) g/dL Lipase 17 (8-78) U/L Discharge Plan Discharge Clinical Impression: Abdominal pain Patient Disposition: Home, Self-Care Instructions: Abdominal Pain (ED) Additional Instructions: Drink plenty of fluid, likely has gastritis avoid fried food Medicine for gastritis as prescribed Prescriptions: New omeprazole 40 mg capsule,delayed release(DR/EC) 40 mg PO DAILY Qty: 30 0RF sucralfate 1 gram tablet 1 g PO BID Qty: 60 0RF No Action Entyvio 300 mg recon soln 300 mg IV Q2W 14 Days Qty: 1 8RF Rx Instructions: Infuse 300mg IV at week 0, 2, 6, then every 8 weeks cyclobenzaprine 10 mg tablet 10 mg PO BID PRN (Reason: muscle spasm) Qty: 10 0RF multivitamin Tablet 1 tab PO DAILY 0RF atomoxetine 25 mg capsule 1 cap PO QAM 0RF (DME) Blood Pressure Cuff Misc See Rx Instructions .ROUTE .MEDSUPPLY Qty: 1 0RF Rx Instructions: blood pressure checks daily and as needed large cuff please lidocaine [Aspercreme (lidocaine HCl)] 4 % adhesive patch,medicated 1 patch topical DAILY 30 Days Qty: 30 4RF clonidine HCl 0.1 mg tablet 0.15 mg PO TID 30 Days Qty: 135 1RF budesonide 3 mg capsule,delayed,extend.release 9 mg PO DAILY 30 Days Qty: 90 1RF Rx Instructions: open capsules and mix with apple sauce naproxen 500 mg tablet 500 mg PO BID PRN (Reason: Pain) 0RF
[2021-08-13 23:36] VITALS: BP 140/63; PULSE 70; RESP 16; TEMP 37.2; O2SAT 98
[2021-08-13 23:55] LABS: C Reactive Protein 0.46 mg/dL (< or = 0.50)
[2021-08-14] MEDS: Omeprazole 20 MG CAPSULE.DR PO (01:27)
[2021-08-14] MEDS: Magnesium Hydrox/Alum Hydrox 30 ML ORAL.SUSP PO (01:27)
== END 2021-08-14 01:31 | disposition home or self-care (01) ==
PROVIDERS: Emergency Provider Internal Medicine; PCP Hospitalist
DX: R10.9 Unspecified abdominal pain (principal); K50.90 Crohn's disease, unspecified, without complications; Z79.899 Other long term (current) drug therapy
CPT/HCPCS: 36415; 74176; 80053; 82248; 83690; 85025; 86140; 99284

== ENCOUNTER 2021-08-17 01:40 | Emergency (ER) | payer OTHER, SELFPAY ==
[2021-08-17 01:44] VITALS: BP 160/82; PULSE 97; RESP 14; TEMP 37.9; O2SAT 99; BMI 35.0
[2021-08-17 02:11] LABS: COVID-19 Test Positive (Negative)
[2021-08-17 02:12] LABS: IDNOW Serial# 16C4AD1C; Influenza A Negative (Negative); Influenza B2 Negative (Negative)
--- NOTE | 2021-08-17 03:11 | ED_ITS ---
HPI - URI/Sore Throat General Chief Complaint: Upper Respiratory Symptoms Stated Complaint: flu like symptoms Time Seen by Provider: 08/17/21 02:37 Source: patient Limitations: no limitations History of Present Illness HPI Narrative: 26-year-old male who presents emergency department for evaluation of cough, sore throat, headache, fever, fatigue times 1 day. Patient states that he got sick on 08/16/2021. He states that he has a cough which is mainly nonproductive but occasionally productive of yellow mucus. He states that he is feeling fatigued and he has a sore throat. He also has a headache. He denied chest pain or shortness of breath. He did developed diarrhea as well. The patient has not been vaccinated against COVID-19. Related Data Home Medications Medication Instructions Recorded Confirmed multivitamin 1 tab PO DAILY 02/25/21 08/13/21 naproxen 500 mg tablet 500 mg PO BID PRN 06/18/21 08/13/21 atomoxetine 25 mg capsule 1 cap PO QAM 08/13/21 08/13/21 Previous Rx's Medication Instructions Recorded cyclobenzaprine 10 mg tablet 10 mg PO BID PRN #10 tab 10/30/20 vedolizumab 300 mg intravenous 300 mg IV Q2W 14 Days #1 ea 04/29/21 solution (Entyvio) lidocaine 4 % topical patch 1 patch TOPICAL DAILY 30 Days #30 06/04/21 (Aspercreme (lidocaine)) miscellaneous medical supply #1 ea 06/04/21 (Blood Pressure Cuff) budesonide 3 mg 9 mg PO DAILY 30 Days #90 ea 06/16/21 capsule,delayed,extended release clonidine HCl 0.1 mg tablet 0.15 mg PO TID 30 Days #135 tab 07/02/21 omeprazole 40 mg capsule,delayed 40 mg PO DAILY #30 cap 08/14/21 release sucralfate 1 gram tablet 1 g PO BID #60 tab 08/14/21 Allergies Allergy/AdvReac Type Severity Reaction Status Date / Time penicillin V Allergy Intermediate rash Verified 08/17/21 01:49 Review of Systems Review of Systems: Yes all other systems are reviewed and are negative Neurologic: Reports Abnormal speech present PMFSH Past Medical History Medical History Acquired genu valgum of both knees Acute Crohn's disease ADHD (attention deficit hyperactivity disorder) Arthritis Depression Eczema Scoliosis Spondylosis of lumbosacral spine without myelopathy Surgical History History of arthroscopy of both knees History of esophagogastroduodenoscopy (EGD) Hx of colonoscopy Family History Family History Father No problems noted. Mother Hypertension Maternal Grandfather Diabetes Stroke Other Anemia Social History Social History Household Members: Friend(s) Housing: Apartment Do you presently have visiting nurse or other home services: No Alcohol intake: current Alcohol intake frequency: holidays/special occasions only Patient Tobacco Use Status: Former Tobacco user e-Cigarette/Vaping Use: Never Used Second Hand Smoke Exposure: No Advance Directives: No service: No Current occupational status: employed Cognitive needs: No Hearing needs: No Vision needs: No Physical Exam Vital Signs: Vital Signs: Last Vital Signs Temp 100.3 F 08/17/21 01:44 Pulse 97 08/17/21 01:44 Resp 14 08/17/21 01:44 BP 160/82 H 08/17/21 01:44 Pulse Ox 99 08/17/21 01:44 BMI result Body Mass Index 35.0 Const: General: cooperative, no acute distress, well developed, alert and awake Orientation/consciousness: oriented to person HEENT: Head: Yes normal to inspection, Yes normocephalic and Yes atraumatic Ears: hearing grossly normal bilaterally General nose exam: Normal external nose present Face and sinus: Yes normal facial exam Mouth: Normal oral and palatal mucosa present, lip normal, tongue normal, oropharynx normal and moist mucous membranes Throat: Yes posterior oropharynx normal, Yes tonsils normal and Yes uvula midline Eyes: General: appearance normal, both eyes and all related structures Eyelids: Yes eyelids normal Conjunctivae: conjunctivae normal Sclerae: sclerae normal Corneas: corneas normal Pupils: Equal, round and reactive pupils present Neck: Neck: Yes normal visual inspection, Yes no lymphadenopathy, Yes trachea midline and Yes supple Thyroid: Thyroid normal Lymphatic: no lymphadenopathy noted Chest: Chest palpation & inspection: normal inspection of the chest and normal palpation of entire chest wall Resp: Effort & Inspection: normal respiratory effort and able to speak in complete sentences Auscultation: clear to auscultation bilaterally Cardio: Rate: regular rate Rhythm: regular rhythm Heart sounds: S1 normal heart sound present, S2 normal heart sound present and no murmurs GI: Inspection: Yes normal to inspection Palpation (GI): Soft to palpation, nontender and No hepatosplenomegaly present Auscultation: normal bowel sounds : General: Yes no CVA tenderness Back/Spine/Pelvis: Back: no CVA tenderness Thoracic/Lumbar Spine: thoracic and lumbar spine normal to inspection Skin: General skin exam: no rashes or lesions noted, no erythema and no jaundice Lesions: no lesions Rashes: no rashes Trauma: no lacerations or abrasions Wounds: no wounds Neuro: General: oriented to person, moves all extremities and no focal motor deficits Cranial nerves: Yes Equal, round and reactive pupils present Cognition (Neuro): normal cognition Speech: Abnormal speech present Motor exam (neuro): Motor abnormalities not present Extrem: General: Yes normal to inspection, Yes no pedal edema and Yes no calf tenderness Right upper extremity: normal to inspection Left upper extremity: normal to inspection Right lower extremity: normal to inspection Left lower extremity: normal to inspection Psych: Appearance: grossly normal Mental Status: mental status grossly normal Speech and movement: Normal speech and movement present Affect: normal affect Attitude: cooperative Thought process: Normal thought process present Insight: Good insight present (Psych) Course Course Course Narrative: 26-year-old male who presents emergency department for evaluation of upper respiratory/flu-like illness x1 day. Vital signs revealed an elevated blood pressure of 160/82 and a fever of 100.3 degrees F. patient's exam was otherwise unremarkable. Patient's COVID-19 test was positive. The patient would benefit from Paxlovid treatment. I did perform a medication check for interactions with Paxlovid using the patient's medications list as documented in the record. There does not appear to be any significant interactions. The patient's GFR from several days prior was greater than 60. The patient will be referred to the [facility] clinic. I did discuss signs and symptoms of pneumonia and return precautions with the patient. MDM - URI/Sore Throat Lab Data Labs: Lab Results 08/17/21 08/17/21 Range/Units 01:50 01:50 COVID-19 (AMY) Positive A (Negative) COVID-19 Clin Com See Note Influenza Type A (STEPHENIE) Negative (Negative) Influenza Type B (STEPHENIE) Negative (Negative) Influenza A & B Note See Note Discharge Plan Discharge Clinical Impression: COVID-19 virus infection Patient Disposition: Home, Self-Care Instructions: COVID-19 (Coronavirus Disease 2019) (ED) Additional Instructions: Your COVID-19 test was positive. Your symptoms are consistent with a COVID infection. I think that you would benefit from getting Paxlovid through the [facility]. I emailed a referral to the clinic. They should contact you in 1-2 days to arrange follow-up treatment. Take Tylenol (acetaminophen) 500 mg pills, 2 pills every 4 to 6 hours as needed for pain. Follow-up with your doctor in 2 days. Please return to the emergency department if your symptoms get worse or if you develop any symptoms that are concerning to you. Prescriptions: No Action Entyvio 300 mg recon soln 300 mg IV Q2W 14 Days Qty: 1 8RF Rx Instructions: Infuse 300mg IV at week 0, 2, 6, then every 8 weeks cyclobenzaprine 10 mg tablet 10 mg PO BID PRN (Reason: muscle spasm) Qty: 10 0RF multivitamin Tablet 1 tab PO DAILY 0RF atomoxetine 25 mg capsule 1 cap PO QAM 0RF omeprazole 40 mg capsule,delayed release(DR/EC) 40 mg PO DAILY Qty: 30 0RF sucralfate 1 gram tablet 1 g PO BID Qty: 60 0RF (DME) Blood Pressure Cuff Misc See Rx Instructions .ROUTE .MEDSUPPLY Qty: 1 0RF Rx Instructions: blood pressure checks daily and as needed large cuff please lidocaine [Aspercreme (lidocaine HCl)] 4 % adhesive patch,medicated 1 patch topical DAILY 30 Days Qty: 30 4RF clonidine HCl 0.1 mg tablet 0.15 mg PO TID 30 Days Qty: 135 1RF budesonide 3 mg capsule,delayed,extend.release 9 mg PO DAILY 30 Days Qty: 90 1RF Rx Instructions: open capsules and mix with apple sauce naproxen 500 mg tablet 500 mg PO BID PRN (Reason: Pain) 0RF
== END 2021-08-17 03:17 | disposition home or self-care (01) ==
PROVIDERS: Emergency Provider Emergency Medicine Emergency Medical Services
DX: U07.1 COVID-19 (principal); R05.9 Cough, unspecified; R51.9 Headache, unspecified; R50.9 Fever, unspecified; Z79.899 Other long term (current) drug therapy
CPT/HCPCS: 87502; 87635; 99283

== ENCOUNTER 2021-08-29 18:39 | Emergency (ER) | payer OTHER, SELFPAY ==
--- NOTE | ~2021-08-29 | XR_ITS ---
EXAMINATION: XR CHEST CLINICAL INFORMATION: Chest pain COMPARISON: Frontal view 12/31/08 TECHNIQUE: Frontal view of the chest was obtained. FINDINGS: The mediastinum, adin, vasculature, lungs and visualized pleural margins are within normal limits. No focal bone lesion. No evidence of pneumoperitoneum. XR/XR chest 1V IMPRESSION: No acute chest disease
--- NOTE | 2021-08-29 18:44 | ECG_ITS ---
Test Reason : IRREGULAR HEARTBEAT Blood Pressure : / mmHG Vent. Rate : 073 BPM Atrial Rate : 073 BPM P-R Int : 140 ms QRS Dur : 094 ms QT Int : 394 ms P-R-T Axes : 061 047 036 degrees QTc Int : 434 ms Normal sinus rhythm Normal ECG When compared with ECG of 27-FEB-2021 01:39, No significant change was found Referred By: Generic ED Physician Electronically Signed By:BRENDA NASCIMENTO
[2021-08-29 19:37] VITALS: BP 120/67; PULSE 60; RESP 20; TEMP 36.4; O2SAT 100; BMI 32.5
[2021-08-29 19:54] LABS: MANUAL DIFF FLAG NO
[2021-08-29 19:56] LABS: Basophils Percent Auto 0.5 % (0-2); Eosinophils Absolute Auto 1.1 X10*3/uL (0.0-0.4); Eosinophils Percent Auto 12.7 % (0-4); Hematocrit 45.8 % (42.0-52.0); Hemoglobin 15.3 g/dl (14.0-18.0); Imm Gran Abs Auto 0.02 X10*3/uL (0.00-0.03); Imm Gran Pct Auto 0.2 % (0.0-0.4); Lymphocytes Absolute Auto 1.9 X10*3/uL (1.2-4.9); Lymphocytes Percent Auto 21.9 % (20-40); Mean Corpuscular HGB Conc 33.4 g/dl (31.0-36.0); Mean Corpuscular Volume 86.7 fL (80.0-98.0); Mean Platelet Volume 9.7 fL (9.4-12.4); Monocytes Absolute Auto 0.7 X10*3/uL (0.1-1.2); Monocytes Percent Auto 8.4 % (2-11); Neutrophils Absolute Auto 4.9 x10*3/uL (2.0-8.3); Neutrophils Percent Auto 56.3 % (45-73); Platelet Count 337 X10*3/uL (160-400); Red Blood Count 5.28 X10*6/uL (4.60-5.80); Red Cell Distribution Width 12.9 % (11.0-16.0); White Blood Count 8.7 X10*3/uL (4.8-10.8)
[2021-08-29 20:13] LABS: Anion Gap 12 (12-20); Blood Urea Nitrogen 7 mg/dL (9-16); Calcium 9.6 mg/dL (8.4-10.2); Carbon Dioxide 27 mmol/L (22-29); Chloride 108 mmol/L (96-108); Estimated Glomerular Filt Rate > 60; Glucose Random 91 mg/dL (60-115); Potassium 4.5 mmol/L (3.3-5.1); Sodium 142 mmol/L (135-145)
[2021-08-29 20:21] LABS: Troponin-I High Sensitivity 4.6 ng/L (<3.5-35.0)
--- NOTE | 2021-08-29 21:31 | ED.CHESTPAIN ---
HPI - Chest Pain General Chief Complaint: Chest Pain Stated Complaint: irregular heart beat, dizzy, faint Time Seen by Provider: 08/29/21 21:31 Source: patient Mode of arrival: ambulatory Limitations: no limitations History of Present Illness HPI narrative: Patient history of Crohn disease history of COVID 2 weeks ago complaining of extra heartbeat off and on today feel heart is skipping beats with slight discomfort in the chest. No shortness of breath no syncope or dizziness Related Data Home Medications Medication Instructions Recorded Confirmed multivitamin 1 tab PO DAILY 02/25/21 08/13/21 naproxen 500 mg tablet 500 mg PO BID PRN 06/18/21 08/13/21 atomoxetine 25 mg capsule 1 cap PO QAM 08/13/21 08/13/21 Previous Rx's Medication Instructions Recorded cyclobenzaprine 10 mg tablet 10 mg PO BID PRN #10 tab 10/30/20 vedolizumab 300 mg intravenous 300 mg IV Q2W 14 Days #1 ea 04/29/21 solution (Entyvio) lidocaine 4 % topical patch 1 patch TOPICAL DAILY 30 Days #30 06/04/21 (Aspercreme (lidocaine)) miscellaneous medical supply #1 ea 06/04/21 (Blood Pressure Cuff) budesonide 3 mg 9 mg PO DAILY 30 Days #90 ea 06/16/21 capsule,delayed,extended release clonidine HCl 0.1 mg tablet 0.15 mg PO TID 30 Days #135 tab 07/02/21 omeprazole 40 mg capsule,delayed 40 mg PO DAILY #30 cap 08/14/21 release sucralfate 1 gram tablet 1 g PO BID #60 tab 08/14/21 chlorpheniramine-dextromethorphan 1 tab PO Q6H PRN #30 tab 08/19/21 4 mg-30 mg tablet (Coricidin HBP Cough and Cold) Allergies Allergy/AdvReac Type Severity Reaction Status Date / Time penicillin V Allergy Intermediate rash Verified 08/17/21 01:49 Review of Systems Review of Systems: Yes all other systems are reviewed and are negative PMFSH Past Medical History Medical History Acquired genu valgum of both knees Acute Crohn's disease ADHD (attention deficit hyperactivity disorder) Arthritis Depression Eczema Scoliosis Spondylosis of lumbosacral spine without myelopathy Surgical History History of arthroscopy of both knees History of esophagogastroduodenoscopy (EGD) Hx of colonoscopy Family History Family History Father No problems noted. Mother Hypertension Maternal Grandfather Diabetes Stroke Other Anemia Social History Social History Household Members: Friend(s) Housing: Apartment Do you presently have visiting nurse or other home services: No Alcohol intake: current Alcohol intake frequency: holidays/special occasions only Patient Tobacco Use Status: Former Tobacco user e-Cigarette/Vaping Use: Never Used Second Hand Smoke Exposure: No Advance Directives: No Advance Directives Information Provided: No service: No Current occupational status: employed Cognitive needs: No Hearing needs: No Vision needs: No Physical Exam Vital Signs: Vital Signs: Last Vital Signs Temp 98.5 F 08/29/21 21:32 Pulse 60 08/29/21 21:32 Resp 15 08/29/21 21:32 BP 118/69 08/29/21 21:32 Pulse Ox 100 08/29/21 21:32 BMI result Body Mass Index 32.5 Appearance: Alert. Oriented X3. No acute distress. ENT: Pharynx normal. Oral Mucosa moist Neck: Normal inspection. Neck supple. CVS: Normal heart rate and rhythm. Occasional PVCs Pulses normal. Respiratory: No respiratory distress. Equal air entry bilateral, no wheezing/rales/rhonchi Abdomen: Soft and nontender. Bowel sounds are present, no mass palpable, no CVA tenderness Skin: Skin warm and dry. Normal skin color. Normal skin turgor. Extremities: No lower extremity edema. No calf tenderness Neuro: Oriented X 3. MDM - Chest Pain MDM Narrative Medical decision making narrative: Patient with palpitation registered nurse cardiac showed occasional unifocal PVC lab workup negative, chest x-ray negative will discharge patient from Lab Data Attestation: I reviewed the patient's lab results. Result diagrams: 08/29/21 19:44 08/29/21 19:44 Labs: Lab Results 08/29/21 08/29/21 08/29/21 Range/Units 19:44 19:44 19:44 WBC 8.7 (4.8-10.8) X10*3/uL RBC 5.28 (4.60-5.80) X10*6/uL Hgb 15.3 (14.0-18.0) g/dl Hct 45.8 (42.0-52.0) % MCV 86.7 (80.0-98.0) fL MCH 29.0 (27.0-33.0) pg MCHC 33.4 (31.0-36.0) g/dl RDW 12.9 (11.0-16.0) % Plt Count 337 D (160-400) X10*3/uL MPV 9.7 (9.4-12.4) fL Immature Gran % (Auto) 0.2 (0.0-0.4) % Neut % (Auto) 56.3 (45-73) % Lymph % (Auto) 21.9 (20-40) % [place] % (Auto) 8.4 (2-11) % Eos % (Auto) 12.7 H (0-4) % Baso % (Auto) 0.5 (0-2) % Lymph # (Auto) 1.9 (1.2-4.9) X10*3/uL [place] # (Auto) 0.7 (0.1-1.2) X10*3/uL Eos # (Auto) 1.1 H (0.0-0.4) X10*3/uL Baso # (Auto) 0.0 (0.0-0.2) X10*3/uL Abs Immat Gran (auto) 0.02 (0.00-0.03) X10*3/uL Absolute Neuts (auto) 4.9 (2.0-8.3) x10*3/uL Absolute Nucleated RBC 0.000 (0.0-0.012) X10*3/uL Nucleated RBC % (auto) 0.0 (0.0-0.2) /100WBC Sodium 142 (135-145) mmol/L Potassium 4.5 (3.3-5.1) mmol/L Chloride 108 (96-108) mmol/L Carbon Dioxide 27 (22-29) mmol/L Anion Gap 12 (12-20) BUN 7 L (9-16) mg/dL Creatinine 0.88 (0.5-1.4) mg/dL Estim Creat Clear Calc 176.0 Estimated GFR > 60 Random Glucose 91 (60-115) mg/dL Calcium 9.6 (8.4-10.2) mg/dL Troponin I High Sens 4.6 (<3.5-35.0) ng/L ECG Data ECG #1: Attestation: I personally reviewed and interpreted this ECG as follows: Interpretation: Normal sinus rhythm heart rate 73 beats per minute normal interval normal axis no acute ST wave changes no acute ischemic Discharge Plan Discharge Clinical Impression: Frequent unifocal PVCs Patient Disposition: Home, Self-Care Instructions: Premature Ventricular Contractions (ED) Additional Instructions: Check blood pressure daily and take your clonidine if blood pressure is elevated Follow the pcp Report to ER if passing out episode Prescriptions: No Action Entyvio 300 mg recon soln 300 mg IV Q2W 14 Days Qty: 1 8RF Rx Instructions: Infuse 300mg IV at week 0, 2, 6, then every 8 weeks Coricidin HBP Cough and Cold 4-30 mg tablet 1 tab PO Q6H PRN (Reason: cough) Qty: 30 1RF cyclobenzaprine 10 mg tablet 10 mg PO BID PRN (Reason: muscle spasm) Qty: 10 0RF multivitamin Tablet 1 tab PO DAILY 0RF atomoxetine 25 mg capsule 1 cap PO QAM 0RF omeprazole 40 mg capsule,delayed release(DR/EC) 40 mg PO DAILY Qty: 30 0RF sucralfate 1 gram tablet 1 g PO BID Qty: 60 0RF (DME) Blood Pressure Cuff Misc See Rx Instructions .ROUTE .MEDSUPPLY Qty: 1 0RF Rx Instructions: blood pressure checks daily and as needed large cuff please lidocaine [Aspercreme (lidocaine HCl)] 4 % adhesive patch,medicated 1 patch topical DAILY 30 Days Qty: 30 4RF clonidine HCl 0.1 mg tablet 0.15 mg PO TID 30 Days Qty: 135 1RF budesonide 3 mg capsule,delayed,extend.release 9 mg PO DAILY 30 Days Qty: 90 1RF Rx Instructions: open capsules and mix with apple sauce naproxen 500 mg tablet 500 mg PO BID PRN (Reason: Pain) 0RF Interventions: ED Discharge Assessment Last Done: 08/29/21 21:59 Discharge Date/Time: 08/29/21 22:00
[2021-08-29 21:32] VITALS: BP 118/69; PULSE 60; RESP 15; TEMP 36.9; O2SAT 100
== END 2021-08-29 22:00 | disposition home or self-care (01) ==
PROVIDERS: Emergency Provider Internal Medicine; PCP Hospitalist
DX: I49.3 Ventricular premature depolarization (principal); Z86.16 Personal history of COVID-19
CPT/HCPCS: 36415; 71045; 80048; 84484; 85025; 93005; 99283; 99284

== ENCOUNTER 2021-09-04 10:58 | Outpatient (REF) | payer OTHER, SELFPAY ==
[2021-09-04 11:48] LABS: MANUAL DIFF FLAG NO
[2021-09-04 11:56] LABS: Basophils Percent Auto 0.6 % (0-2); Eosinophils Absolute Auto 0.3 X10*3/uL (0.0-0.4); Hematocrit 45.9 % (42.0-52.0); Hemoglobin 14.9 g/dl (14.0-18.0); Lymphocytes Absolute Auto 1.3 X10*3/uL (1.2-4.9); Lymphocytes Percent Auto 24.4 % (20-40); Mean Corpuscular HGB Conc 32.5 g/dl (31.0-36.0); Mean Corpuscular Hemoglobin 28.4 pg (27.0-33.0); Mean Corpuscular Volume 87.6 fL (80.0-98.0); Mean Platelet Volume 9.8 fL (9.4-12.4); Monocytes Absolute Auto 0.4 X10*3/uL (0.1-1.2); Monocytes Percent Auto 7.7 % (2-11); Neutrophils Absolute Auto 3.2 x10*3/uL (2.0-8.3); Neutrophils Percent Auto 62.3 % (45-73); Platelet Count 322 X10*3/uL (160-400); Red Blood Count 5.24 X10*6/uL (4.60-5.80); White Blood Count 5.2 X10*3/uL (4.8-10.8)
[2021-09-04 12:15] LABS: Alanine Aminotransferase 32 U/L (0-40); Albumin Level 4.4 g/dL (3.5-5.0); Alkaline Phosphatase 73 U/L (39-117); Anion Gap 14 (12-20); Aspartate Amino Transferase 19 U/L (5-37); Bilirubin Total 0.7 mg/dL (0.0-1.0); Blood Urea Nitrogen 10 mg/dL (9-16); Calcium 9.9 mg/dL (8.4-10.2); Carbon Dioxide 27 mmol/L (22-29); Chloride 108 mmol/L (96-108); Estimated Glomerular Filt Rate > 60; Glucose Random 102 mg/dL (60-115); Potassium 4.7 mmol/L (3.3-5.1); Sodium 144 mmol/L (135-145); Total Protein 7.1 g/dL (6.5-8.0)
[2021-09-04 12:37] LABS: Erythrocyte Sedimentation Rate 2 MM/HR (0-15)
== END 2021-09-04 10:59 | disposition home or self-care (01) ==
LOC: HO.MDS 10:58
PROVIDERS: PCP Hospitalist; Visit Provider Internal Medicine Gastroenterology
DX: K50.90 Crohn's disease, unspecified, without complications (principal)
CPT/HCPCS: 36415; 80053; 80280; 82542; 85025; 85652; 86140; 96365; J3380

== ENCOUNTER 2021-09-22 10:23 | Outpatient (REF) | payer OTHER, SELFPAY ==
[2021-09-22 11:17] LABS: Cholesterol 159 mg/dL; HDL Cholesterol 43 mg/dL; LDL Cholesterol Calculated 101 mg/dl; Triglycerides 79 mg/dL
[2021-09-22 11:38] LABS: TSH reflex Free T4 0.91 uIU/mL (0.32-4.0)
== END 2021-09-22 10:24 | disposition home or self-care (01) ==
LOC: HO.LAB 10:23
PROVIDERS: Absent Provider Internal Medicine Gastroenterology; PCP Hospitalist; Visit Provider Hospitalist
DX: Z00.00 Encounter for general adult medical examination without abnormal findings (principal)
CPT/HCPCS: 36415; 80061; 84443

== ENCOUNTER 2021-10-06 10:44 | Emergency (ER) | payer OTHER, SELFPAY ==
[2021-10-06 11:43] VITALS: BP 112/74; PULSE 58; RESP 18; TEMP 35.7; O2SAT 100; BMI 32.5
--- NOTE | 2021-10-06 11:47 | ED_ITS ---
HPI - Ear Problem General Chief complaint: Ear Problems Stated complaint: R ear pain Time Seen by Provider: 10/06/21 11:40 Source: patient Mode of arrival: ambulatory Limitations: no limitations History of Present Illness HPI Narrative: 26-year-old male came in for evaluation of bilateral ear pain right more than left, patient's symptoms started after swimming in a [place]. No fever, no chills, no upper respiratory symptoms, no CP in, no abdominal pain. Related Data Home Medications Medication Instructions Recorded Confirmed multivitamin 1 tab PO DAILY 02/25/21 08/13/21 naproxen 500 mg tablet 500 mg PO BID PRN Pain 06/18/21 08/13/21 atomoxetine 25 mg capsule 1 cap PO QAM 08/13/21 08/13/21 Previous Rx's Medication Instructions Recorded cyclobenzaprine 10 mg tablet 10 mg PO BID PRN muscle spasm #10 10/30/20 tabs vedolizumab 300 mg intravenous 300 mg IV Q2W 14 days #1 ea 04/29/21 solution (Entyvio) lidocaine 4 % topical patch 1 patch topical DAILY pain 1 month 06/04/21 (Aspercreme (lidocaine)) #30 ea miscellaneous medical supply #1 ea 06/04/21 (Blood Pressure Cuff) budesonide 3 mg 9 mg PO DAILY 30 days #90 ea 06/16/21 capsule,delayed,extended release clonidine HCl 0.1 mg tablet 0.15 mg PO TID 1 month #135 tabs 07/02/21 omeprazole 40 mg capsule,delayed 40 mg PO DAILY #30 caps 08/14/21 release sucralfate 1 gram tablet 1 g PO BID #60 tabs 08/14/21 chlorpheniramine-dextromethorphan 1 tab PO Q6H PRN cough #30 tabs 08/19/21 4 mg-30 mg tablet (Coricidin HBP Cough and Cold) azithromycin 250 mg tablet See Rx Instructions PO .COMPLEX #6 10/06/21 (Zithromax Z-Travis) tabs jvmxyrmy-ahdhubdin-liyantap 3.5 1 drp ophthalmic (eye) Q8H #5 mL 10/06/21 mg/mL-10,000 unit/mL-0.1% eye drops (Maxitrol) Allergies Allergy/AdvReac Type Severity Reaction Status Date / Time penicillin V Allergy Intermediate rash Verified 10/06/21 11:43 Review of Systems Review of Systems: All other systems are reviewed and are negative Constitutional: Reports as per HPI and Reports no additional constitutional complaints Eyes: Reports as per HPI and Reports no additional eye complaints Reports system reviewed and no additional complaints, except as documented Cardiovascular: Reports as per HPI and Reports no additional cardiovascular complaints Respiratory: Reports as per HPI and Reports no additional respiratory complaints Gastrointestinal: Reports as per HPI and Reports no additional gastrointestinal complaints Genitourinary: Reports no additional female genitourinary complaints Musculoskeletal: Reports no additional musculoskeletal complaints Skin/Breast: Reports system reviewed and no additional complaints, except as docu Psychiatric: Reports no additional psychiatric complaints Endocrine: Reports no additional endocrine complaints Hematologic/Lymphatic: Reports no additional hematologic/lymphatic complaints Allergic/Immunologic: Reports no additional allergic/immunologic complaints Reports system reviewed and no additional complaints, except as documented and Reports Abnormal speech present [facility] Past Medical History Medical History Acute Crohn's disease ADHD (attention deficit hyperactivity disorder) Arthritis Depression Eczema Scoliosis Surgical History History of arthroscopy of both knees History of esophagogastroduodenoscopy (EGD) Hx of colonoscopy Family History Family History Father No problems noted. Mother Hypertension Maternal Grandfather Diabetes Stroke Other Anemia Social History Social History Household Members: Friend(s) Housing: Apartment Do you presently have visiting nurse or other home services: No Alcohol intake: current Alcohol intake frequency: holidays/special occasions only Patient Tobacco Use Status: Former Tobacco user e-Cigarette/Vaping Use: Never Used Second Hand Smoke Exposure: No Advance Directives: No Advance Directives Information Provided: No service: No Current occupational status: employed Cognitive needs: No Hearing needs: No Vision needs: No Physical Exam Vital Signs: Vital Signs: Last Vital Signs Temp 96.2 F L 10/06/21 11:43 Pulse 58 10/06/21 11:43 Resp 18 10/06/21 11:43 BP 112/74 10/06/21 11:43 Pulse Ox 100 10/06/21 11:43 O2 Del Method 10/06/21 11:43 BMI result Body Mass Index 32.5 Vital signs have been reviewed as appeared to be correct. Blood pressure normal. Heart rate normal. Respiration rate normal. Temperature normal. Oxygen saturation normal. Appearance: Alert. Oriented X3. No acute distress. Head: Normal external exam. Normocephalic. Atraumatic. No Dawson signs noted. No raccoon eyes noted Eyes: PERRLA. EOMI. Conjunctiva and sclera normal. Eyelids normal. ENT: Bilateral TM erythema with no exudate in the auditory canal or swelling.. Pharynx normal. Uvula midline. Moist mucous membranes. No trismus noted. No drooling noted. No muffled voice noted. Neck: Normal inspection. Neck supple. FROM. No adenopathy. Thyroid Normal. No meningeal signs. No neck mass noted. CVS: Normal heart rate and rhythm. Heart sound normal. No murmurs noted. Pulses normal throughout. Respiratory: No respiratory distress. Painless inspiration. Breath sounds normal. No wheezes/rales/rhonchi noted. Chest nontender. No accessory muscle usage noted or decreased air movement noted. Abdomen: Soft and nontender. Bowel sounds normal in all 4 quadrants. No distention noted. No organomegaly noted. No visible injury noted. Back: No CVA tenderness. Full range of motion noted. Skin: Skin warm and dry. Normal skin color. Normal skin turgor. No rashes/lesions/lacerations noted. Extremities: No lower extremity edema. Extremities exhibit normal range of mo tion. Extremities nontender. Neuro: Oriented X 3. Cranial nerve exam: II-XII are grossly intact No motor deficit. No sensory deficit. Reflexes normal. Course Course Course Narrative: Bilateral ear infection after swimming in the [place]. Exam is revealing otitis media and otitis externa will start the patient on a Z- Travis (allergic to penicillin) and polymyxin seen ear drop. Patient was educated to use ear plugs when swimming. Discharge Plan Discharge Clinical Impression: Otitis externa, Otitis media Patient Disposition: Home, Self-Care Instructions: Otitis Externa (ED), Ear Infection (ED) Additional Instructions: No swimming until complete resolution of her symptoms, use ear plugs for swimming. Prescriptions: New azithromycin [Zithromax Z-Travis] 250 mg tablet See Rx Instructions .ROUTE .COMPLEX Qty: 6 0RF Rx Instructions: For 250 mg dose pack: take 500 mg today (day 1), then 250 mg for 4 days (days 2-5) neomycin-polymyxin B-dexameth [Maxitrol] 3.5mg/mL-10,000 unit/mL-0.1 % drops,suspension 1 drp ophthalmic (eye) Q8H Qty: 5 0RF Rx Instructions: One drop in each ear 3 times a day for 5 days No Action Entyvio 300 mg recon soln 300 mg IV Q2W 14 Days Qty: 1 8RF Rx Instructions: Infuse 300mg IV at week 0, 2, 6, then every 8 weeks Coricidin HBP Cough and Cold 4-30 mg tablet 1 tab PO Q6H PRN (Reason: cough) Qty: 30 1RF cyclobenzaprine 10 mg tablet 10 mg PO BID PRN (Reason: muscle spasm) Qty: 10 0RF multivitamin Tablet 1 tab PO DAILY atomoxetine 25 mg capsule 1 cap PO QAM omeprazole 40 mg capsule,delayed release(DR/EC) 40 mg PO DAILY Qty: 30 0RF sucralfate 1 gram tablet 1 g PO BID Qty: 60 0RF (DME) Blood Pressure Cuff Misc See Rx Instructions .ROUTE .MEDSUPPLY Qty: 1 0RF Rx Instructions: blood pressure checks daily and as needed large cuff please lidocaine [Aspercreme (lidocaine HCl)] 4 % adhesive patch,medicated 1 patch topical DAILY 30 Days Qty: 30 4RF clonidine HCl 0.1 mg tablet 0.15 mg PO TID 30 Days Qty: 135 1RF budesonide 3 mg capsule,delayed,extend.release 9 mg PO DAILY 30 Days Qty: 90 1RF Rx Instructions: open capsules and mix with apple sauce naproxen 500 mg tablet 500 mg PO BID PRN (Reason: Pain) Referrals: Shakira Higgins NP [Primary Care Provider] -
== END 2021-10-06 12:11 | disposition home or self-care (01) ==
PROVIDERS: Emergency Provider Emergency Medicine; PCP Hospitalist
DX: H92.03 Otalgia, bilateral (principal); H60.93 Unspecified otitis externa, bilateral; H66.93 Otitis media, unspecified, bilateral; Z87.891 Personal history of nicotine dependence; Z79.899 Other long term (current) drug therapy
CPT/HCPCS: 99283

== ENCOUNTER 2021-10-26 23:14 | Emergency (ER) | payer OTHER, SELFPAY ==
[2021-10-27 00:14] VITALS: BP 140/76; PULSE 76; RESP 16; TEMP 36.7; O2SAT 98; BMI 33.3
[2021-10-27 00:17] LABS: MANUAL DIFF FLAG NO
[2021-10-27 00:19] LABS: Basophils Absolute Auto 0.1 X10*3/uL (0.0-0.2); Basophils Percent Auto 0.7 % (0-2); Eosinophils Absolute Auto 0.3 X10*3/uL (0.0-0.4); Eosinophils Percent Auto 4.3 % (0-4); Hematocrit 42.6 % (42.0-52.0); Hemoglobin 14.1 g/dl (14.0-18.0); Imm Gran Abs Auto 0.01 X10*3/uL (0.00-0.03); Imm Gran Pct Auto 0.1 % (0.0-0.4); Lymphocytes Absolute Auto 2.6 X10*3/uL (1.2-4.9); Lymphocytes Percent Auto 35.8 % (20-40); Mean Corpuscular HGB Conc 33.1 g/dl (31.0-36.0); Mean Corpuscular Hemoglobin 29.4 pg (27.0-33.0); Mean Corpuscular Volume 88.9 fL (80.0-98.0); Mean Platelet Volume 10.1 fL (9.4-12.4); Monocytes Absolute Auto 0.6 X10*3/uL (0.1-1.2); Monocytes Percent Auto 8.4 % (2-11); Neutrophils Absolute Auto 3.6 x10*3/uL (2.0-8.3); Neutrophils Percent Auto 50.7 % (45-73); Platelet Count 233 X10*3/uL (160-400); Red Blood Count 4.79 X10*6/uL (4.60-5.80); Red Cell Distribution Width 13.8 % (11.0-16.0); White Blood Count 7.2 X10*3/uL (4.8-10.8)
[2021-10-27 00:41] LABS: Alanine Aminotransferase 19 U/L (0-40); Albumin Level 4.5 g/dL (3.5-5.0); Alkaline Phosphatase 70 U/L (39-117); Anion Gap 14 (12-20); Aspartate Amino Transferase 19 U/L (5-37); Bilirubin Total 0.3 mg/dL (0.0-1.0); Blood Urea Nitrogen 14 mg/dL (9-16); Carbon Dioxide 26 mmol/L (22-29); Chloride 106 mmol/L (96-108); Estimated Glomerular Filt Rate > 60; Glucose Random 109 mg/dL (60-115); Potassium 4.8 mmol/L (3.3-5.1); Sodium 141 mmol/L (135-145); Total Protein 6.7 g/dL (6.5-8.0)
[2021-10-27 00:50] LABS: Appearance Urine CLEAR; Color Urine YELLOW; Glucose Urine UA NEG (NEG); Leukocyte Esterase Urine NEG (NEG); Nitrite Urine NEG (NEG); PH 7.5 (5.0-8.0); Specific Gravity - Urine 1.015 (1.005-1.025); Urine Blood NEG (NEG); Urine Ketones NEG (NEG); Urine Protein NEG (NEG-TRACE)
[2021-10-27 02:00] VITALS: BP 116/66; PULSE 55; RESP 16; O2SAT 99
--- NOTE | 2021-10-27 02:01 | ED.BACK ---
HPI - Back Pain/Injury General Chief Complaint: Back Pain/Injury Stated Complaint: lower back pain Time Seen by Provider: 10/26/21 23:53 Source: patient Mode of arrival: ambulatory History of Present Illness HPI Narrative: 26-year-old male with presentation for right mid posterior back pain that he does not recall is traumatic in nature but he does help his grandmother with chores around the house and states that this has not been associated with any fever, chills, nausea, vomiting, diarrhea/ constipation or urinary pain/ burning / frequency. Pain does not change with deep inspiration or and patient denies any chest pain. Related Data Home Medications Medication Instructions Recorded Confirmed multivitamin 1 tab PO DAILY 02/25/21 08/13/21 naproxen 500 mg tablet 500 mg PO BID PRN Pain 06/18/21 08/13/21 atomoxetine 25 mg capsule 1 cap PO QAM 08/13/21 08/13/21 Previous Rx's Medication Instructions Recorded cyclobenzaprine 10 mg tablet 10 mg PO BID PRN muscle spasm #10 10/30/20 tabs vedolizumab 300 mg intravenous 300 mg IV Q2W 14 days #1 ea 04/29/21 solution (Entyvio) lidocaine 4 % topical patch 1 patch topical DAILY pain 1 month 06/04/21 (Aspercreme (lidocaine)) #30 ea miscellaneous medical supply #1 ea 06/04/21 (Blood Pressure Cuff) budesonide 3 mg 9 mg PO DAILY 30 days #90 ea 06/16/21 capsule,delayed,extended release clonidine HCl 0.1 mg tablet 0.15 mg PO TID 1 month #135 tabs 07/02/21 omeprazole 40 mg capsule,delayed 40 mg PO DAILY #30 caps 08/14/21 release sucralfate 1 gram tablet 1 g PO BID #60 tabs 08/14/21 chlorpheniramine-dextromethorphan 1 tab PO Q6H PRN cough #30 tabs 08/19/21 4 mg-30 mg tablet (Coricidin HBP Cough and Cold) azithromycin 250 mg tablet See Rx Instructions PO .COMPLEX #6 10/06/21 (Zithromax Z-Travis) tabs tdsahtio-qihhtomyu-kwuedsjs 3.5 1 drp ophthalmic (eye) Q8H #5 mL 10/06/21 mg/mL-10,000 unit/mL-0.1% eye drops (Maxitrol) cyclobenzaprine 5 mg tablet 5 mg PO BEDTIME PRN muscle spasm 10/27/21 #3 tabs ketorolac 10 mg tablet 10 mg PO Q6H PRN pain 5 days #20 10/27/21 tabs Allergies Allergy/AdvReac Type Severity Reaction Status Date / Time penicillin V Allergy Intermediate rash Verified 10/27/21 00:15 Review of Systems Review of Systems: Pertinent positives and negatives as stated in HPI 10 point review of systems is otherwise negative. [facility] Past Medical History Source: nursing notes reviewed Medical History Acquired genu valgum of both knees Acute Crohn's disease ADHD (attention deficit hyperactivity disorder) Arthritis Depression Eczema Scoliosis Spondylosis of lumbosacral spine without myelopathy Surgical History History of arthroscopy of both knees History of esophagogastroduodenoscopy (EGD) Hx of colonoscopy Family History Family History Father No problems noted. Mother Hypertension Maternal Grandfather Diabetes Stroke Other Anemia Social History Social History Household Members: Friend(s) Housing: Apartment Do you presently have visiting nurse or other home services: No Alcohol intake: current Alcohol intake frequency: a few times a month Alcohol type: beer Patient Tobacco Use Status: Former Tobacco user e-Cigarette/Vaping Use: Never Used Second Hand Smoke Exposure: No Use of substances other than those prescribed or required for medical reasons: No Advance Directives: No Advance Directives Information Provided: No service: No Current occupational status: employed Cognitive needs: No Hearing needs: No Vision needs: No Physical Exam Vital Signs: Vital Signs: Last Vital Signs Temp 98.1 F 10/27/21 00:14 Pulse 55 10/27/21 02:00 Resp 16 10/27/21 02:00 BP 116/66 10/27/21 02:00 Pulse Ox 99 10/27/21 02:00 O2 Del Method 10/27/21 02:00 BMI result Body Mass Index 33.3 VITAL SIGNS: Reviewed. GENERAL: Well developed, well nourished, in no acute distress. HEAD: Normocephalic/atraumatic EYES: PERRLA, EOMI EARS: Ext canals without abnormality OROPHARYNX: no oral lesions noted, posterior pharynx clear LUNGS: Normal breath sounds. No adventitious sounds or accessory muscle use. SpO2<98> CARDIOVASCULAR: Regular rate and rhythm without noted murmurs ABDOMEN: Soft, non-tender, non-distended with bowel sounds , no CVA tenderness BACK: patient has noted spasm to the right paraspinal at approximate L2 and repeat reducible pain on palpation MUSCULOSKELETAL: No tenderness, deformities, or effusions noted on gross inspection. EXTREMITIES: No cyanosis, clubbing or edema. SKIN: Inspection of the skin reveals no rashes NEUROLOGIC: Alert and oriented x 4. Strength and sensation to light touch were grossly intact x 4. Course Course Course Narrative: 26-year-old male with history and clinical presentation most consistent with musculoskeletal, muscle spasm and low clinical suspicion for any infectious etiology. On review of all investigations there are no acute findings and patient was provided with combination analgesics and lidocaine patch. re-evaluation patient reports improvement in his pain and he will be discharged home in stable condition with remaining course of medications. MDM - Back Pain/Injury Lab Data Result diagrams: 10/26/21 23:55 10/26/21 23:55 Labs: Lab Results 10/26/21 10/26/21 10/27/21 Range/Units 23:55 23:55 00:25 WBC 7.2 (4.8-10.8) X10*3/uL RBC 4.79 (4.60-5.80) X10*6/uL Hgb 14.1 (14.0-18.0) g/dl Hct 42.6 (42.0-52.0) % MCV 88.9 (80.0-98.0) fL MCH 29.4 (27.0-33.0) pg MCHC 33.1 (31.0-36.0) g/dl RDW 13.8 (11.0-16.0) % Plt Count 233 D (160-400) X10*3/uL MPV 10.1 (9.4-12.4) fL Immature Gran % (Auto) 0.1 (0.0-0.4) % Neut % (Auto) 50.7 (45-73) % Lymph % (Auto) 35.8 (20-40) % [place] % (Auto) 8.4 (2-11) % Eos % (Auto) 4.3 H (0-4) % Baso % (Auto) 0.7 (0-2) % Lymph # (Auto) 2.6 (1.2-4.9) X10*3/uL [place] # (Auto) 0.6 (0.1-1.2) X10*3/uL Eos # (Auto) 0.3 (0.0-0.4) X10*3/uL Baso # (Auto) 0.1 (0.0-0.2) X10*3/uL Abs Immat Gran (auto) 0.01 (0.00-0.03) X10*3/uL Absolute Neuts (auto) 3.6 (2.0-8.3) x10*3/uL Absolute Nucleated RBC 0.000 (0.0-0.012) X10*3/uL Nucleated RBC % (auto) 0.0 (0.0-0.2) /100WBC Sodium 141 (135-145) mmol/L Potassium 4.8 (3.3-5.1) mmol/L Chloride 106 (96-108) mmol/L Carbon Dioxide 26 (22-29) mmol/L Anion Gap 14 (12-20) BUN 14 (9-16) mg/dL Creatinine 0.83 (0.5-1.4) mg/dL Estim Creat Clear Calc 184.0 Estimated GFR > 60 Random Glucose 109 (60-115) mg/dL Calcium 9.0 D (8.4-10.2) mg/dL Total Bilirubin 0.3 (0.0-1.0) mg/dL AST 19 (5-37) U/L ALT 19 (0-40) U/L Alkaline Phosphatase 70 (39-117) U/L Total Protein 6.7 (6.5-8.0) g/dL Albumin 4.5 (3.5-5.0) g/dL Urine Color YELLOW Urine Appearance CLEAR Urine pH 7.5 (5.0-8.0) Ur Specific [place] 1.015 (1.005-1.025) Urine Protein NEG (NEG-TRACE) MG/DL Urine Glucose (UA) NEG (NEG) MG/DL Urine Ketones NEG (NEG) MG/DL Urine Blood NEG (NEG) Urine Nitrite NEG (NEG) Ur Leukocyte Esterase NEG (NEG) Discharge Plan Discharge Clinical Impression: Back pain, Muscle spasm Patient Disposition: Home, Self-Care Instructions: Muscle Spasm (ED), Back Pain (ED) Additional Instructions: 1. Tylenol 1000 mg, orally, every 6 hours as needed for pain control. Do not exceed 4000 mg within 24 hours. 2. Lidocaine patch, apply to area of maximal tenderness as directed on the outside packaging. 3. Resume all home medications as prescribed. 4. Follow-up with your primary care provider in the next 1-2 days for re-evaluation. Return to the ER for any worsening symptoms. Prescriptions: New ketorolac 10 mg tablet 10 mg PO Q6H PRN (Reason: pain) 5 Days Qty: 20 0RF Rx Instructions: 1. Patient received Toradol here in the emergency room. 2. Please instruct patient to stop all anti-inflammatory medications such as naproxen / Aleve/ ibuprofen /Motrin cyclobenzaprine 5 mg tablet 5 mg PO BEDTIME PRN (Reason: muscle spasm) Qty: 3 0RF No Action Entyvio 300 mg recon soln 300 mg IV Q2W 14 Days Qty: 1 8RF Rx Instructions: Infuse 300mg IV at week 0, 2, 6, then every 8 weeks Coricidin HBP Cough and Cold 4-30 mg tablet 1 tab PO Q6H PRN (Reason: cough) Qty: 30 1RF cyclobenzaprine 10 mg tablet 10 mg PO BID PRN (Reason: muscle spasm) Qty: 10 0RF multivitamin Tablet 1 tab PO DAILY atomoxetine 25 mg capsule 1 cap PO QAM omeprazole 40 mg capsule,delayed release(DR/EC) 40 mg PO DAILY Qty: 30 0RF sucralfate 1 gram tablet 1 g PO BID Qty: 60 0RF azithromycin [Zithromax Z-Travis] 250 mg tablet See Rx Instructions .ROUTE .COMPLEX Qty: 6 0RF Rx Instructions: For 250 mg dose pack: take 500 mg today (day 1), then 250 mg for 4 days (days 2-5) neomycin-polymyxin B-dexameth [Maxitrol] 3.5mg/mL-10,000 unit/mL-0.1 % drops,suspension 1 drp ophthalmic (eye) Q8H Qty: 5 0RF Rx Instructions: One drop in each ear 3 times a day for 5 days (DME) Blood Pressure Cuff Misc See Rx Instructions .ROUTE .MEDSUPPLY Qty: 1 0RF Rx Instructions: blood pressure checks daily and as needed large cuff please lidocaine [Aspercreme (lidocaine HCl)] 4 % adhesive patch,medicated 1 patch topical DAILY 30 Days Qty: 30 4RF clonidine HCl 0.1 mg tablet 0.15 mg PO TID 30 Days Qty: 135 1RF budesonide 3 mg capsule,delayed,extend.release 9 mg PO DAILY 30 Days Qty: 90 1RF Rx Instructions: open capsules and mix with apple sauce naproxen 500 mg tablet 500 mg PO BID PRN (Reason: Pain) Referrals: Shakira Higgins NP [Primary Care Provider] -
[2021-10-27] MEDS: Ketorolac Tromethamine 15 MG/ML VIAL IM (02:55)
[2021-10-27] MEDS: Acetaminophen 325 MG TABLET 975 MG PO (02:56)
[2021-10-27] MEDS: Lidocaine 4 % Patch ADH..PATCH 1 PATCH TRANSDERMA (02:57)
--- NOTE | 2021-10-27 03:01 | PC.NURSE ---
pt a&ox3, vss, medicated per provider order, lidocaine patch applied to right lower back. no new orders at this time.
== END 2021-10-27 04:11 | disposition home or self-care (01) ==
PROVIDERS: Emergency Provider Student in an Organized Health Care Education/Training Program; PCP Hospitalist
DX: M54.50 Low back pain, unspecified (principal); M62.838 Other muscle spasm; Z79.899 Other long term (current) drug therapy; Z87.891 Personal history of nicotine dependence
CPT/HCPCS: 36415; 80053; 81003; 85025; 96372; 99284; J1885

== ENCOUNTER 2021-11-16 14:36 | Emergency (ER) | payer OTHER, SELFPAY ==
[2021-11-16 15:18] VITALS: BP 125/78; PULSE 65; RESP 18; TEMP 37.2; O2SAT 100; BMI 31.2
[2021-11-16 20:18] VITALS: BP 129/75; PULSE 63; TEMP 37; O2SAT 99
--- NOTE | 2021-11-16 20:34 | ED_ITS ---
HPI - Back Pain/Injury General Chief Complaint: Extremity Injury, Lower Stated Complaint: lower back pain Time Seen by Provider: 11/16/21 20:31 Source: patient Mode of arrival: ambulatory Limitations: no limitations History of Present Illness HPI Narrative: 26-year-old male presenting to the emergency department with complaints of lower back pain, x3 days. Patient tells me that this started after heavy lifting at the gym. He tells me he was squatting about 100 some deep veins immediately after he started experiencing lower back pain. Patient tells me that he has a history of herniated discs in this feels like the last time he had herniated disc. He reports pain that is localized to the lower back, nonradiating. Denies point trauma to the area. Pain with range of motion. Denies numbness or tingling, urinary/bowel incontinence/retention, weakness, changes in ambulation, fevers, chills. No history of IV drug abuse. MD elicited complaint: back pain Pertinent past history: prior back pain and other (heavy lifting ) Onset (ago): day(s) (3) Timing: constant Severity: severe Similar Symptoms Previously: Yes Quality: sharp and aching Location: lumbar spine Radiation: none Exacerbating factors: none, movement and lifting Relieving factors: none Context: while lifting Associated symptoms: denies other symptoms Related Data Home Medications Medication Instructions Recorded Confirmed multivitamin 1 tab PO DAILY 02/25/21 08/13/21 naproxen 500 mg tablet 500 mg PO BID PRN Pain 06/18/21 08/13/21 atomoxetine 25 mg capsule 1 cap PO QAM 08/13/21 08/13/21 Previous Rx's Medication Instructions Recorded cyclobenzaprine 10 mg tablet 10 mg PO BID PRN muscle spasm #10 10/30/20 tabs vedolizumab 300 mg intravenous 300 mg IV Q2W 14 days #1 ea 04/29/21 solution (Entyvio) lidocaine 4 % topical patch 1 patch topical DAILY pain 1 month 06/04/21 (Aspercreme (lidocaine)) #30 ea miscellaneous medical supply #1 ea 06/04/21 (Blood Pressure Cuff) budesonide 3 mg 9 mg PO DAILY 30 days #90 ea 06/16/21 capsule,delayed,extended release clonidine HCl 0.1 mg tablet 0.15 mg PO TID 1 month #135 tabs 07/02/21 omeprazole 40 mg capsule,delayed 40 mg PO DAILY #30 caps 08/14/21 release sucralfate 1 gram tablet 1 g PO BID #60 tabs 08/14/21 chlorpheniramine-dextromethorphan 1 tab PO Q6H PRN cough #30 tabs 08/19/21 4 mg-30 mg tablet (Coricidin HBP Cough and Cold) azithromycin 250 mg tablet See Rx Instructions PO .COMPLEX #6 10/06/21 (Zithromax Z-Travis) tabs llvdyvyf-qvuzsbtcs-gdfozfrq 3.5 1 drp ophthalmic (eye) Q8H #5 mL 10/06/21 mg/mL-10,000 unit/mL-0.1% eye drops (Maxitrol) cyclobenzaprine 5 mg tablet 5 mg PO BEDTIME PRN muscle spasm 10/27/21 #3 tabs ketorolac 10 mg tablet 10 mg PO Q6H PRN pain 5 days #20 10/27/21 tabs cyclobenzaprine 10 mg tablet 10 mg PO BEDTIME PRN muscle spasm 11/16/21 #7 tabs lidocaine 5 % topical patch 1 patch topical DAILY PRN pain #15 11/16/21 ea Allergies Allergy/AdvReac Type Severity Reaction Status Date / Time penicillin V Allergy Intermediate rash Verified 10/27/21 00:15 Review of Systems Review of Systems: Constitutional : No Weight loss, No Fever, No Chills, ENT/Mouth : No Hearing loss, No Ear Pain, No Nasal Congestion, No Sinus Pain, No Hoarseness, No sore throat, No Rhinorrhea, No Swallowing Difficulty Cardiovascular : No Chest Pain, No SOB Respiratory : No Cough, No Dyspnea Gastrointestinal : No Nausea, No Vomiting, No Diarrhea, No abdominal Pain, No Hematochezia, No Melena Genitourinary : No Dysuria, No Urinary Frequency, No Hematuria, No Urinary Incontinence, Musculoskeletal : positive back pain Skin : No Skin Lesions, No rash Neuro : No Weakness, No Numbness, No Paresthesias, no loss of bowel or bladder incontinence, no saddle anesthesia Yes all other systems are reviewed and are negative [facility] Past Medical History Attestation statement: The following information was validated with the patient. Source: old records reviewed and nursing notes reviewed Medical History Acquired genu valgum of both knees Acute Crohn's disease ADHD (attention deficit hyperactivity disorder) Arthritis Depression Eczema Scoliosis Spondylosis of lumbosacral spine without myelopathy Surgical History History of arthroscopy of both knees History of esophagogastroduodenoscopy (EGD) Hx of colonoscopy Family History Family History Father No problems noted. Mother Hypertension Maternal Grandfather Diabetes Stroke Other Anemia Social History Social History Household Members: Friend(s) Housing: Apartment Do you presently have visiting nurse or other home services: No Alcohol intake: current Alcohol intake frequency: a few times a month Alcohol type: beer Patient Tobacco Use Status: Former Tobacco user e-Cigarette/Vaping Use: Never Used Second Hand Smoke Exposure: No Advance Directives: No Advance Directives Information Provided: No service: No Current occupational status: employed Cognitive needs: No Hearing needs: No Vision needs: No Physical Exam Vital Signs: Vital Signs: Last Vital Signs Temp 98.6 F 11/16/21 20:18 Pulse 63 11/16/21 20:18 Resp 18 11/16/21 15:18 BP 129/75 11/16/21 20:18 Pulse Ox 99 11/16/21 20:18 O2 Del Method 11/16/21 20:18 BMI result Body Mass Index 31.2 vss Appearance: Alert.? Oriented X3.? No acute distress.? Head: Normocephalic, atraumatic, no step-offs or deformities Eyes: Pupils equal, round and reactive to light.? ENT: Pharynx normal.? Neck: Normal inspection.? Neck supple.? CVS: Normal heart rate and rhythm.? Pulses normal.? Respiratory: No respiratory distress.? Breath sounds normal.? Abdomen: Soft and nontender.? Skin: Skin warm and dry.? Normal skin color.? Normal skin turgor.? Extremities: No lower extremity edema.? No calf ttp. 5/5 strength to bilateral upper and lower extremities. Bilateral patellar reflexes 2+ equal bilateral. Positive straight leg raise bilaterally. Back: No midline tenderness, no C-spine tenderness, full range of motion, no CVA tenderness bilaterally positive some discomfort with palpation of lumbar region, mostly the paraspinous region. Neuro: Oriented X 3.? No motor deficit.? No sensory deficit. CN 2-12 intact. Ambulating with steady gait. No saddle paresthesias. Course Reevaluation(s) Reevaluation #1: Educated patient on treatment plan, diagnosis, advised them to follow-up with PCP as they will likely require an MRI for further evaluation of back pain. No red flag symptoms. Patient able to ambulate with steady gait. At this time patient will be discharged home with cyclobenzaprine, the Lidoderm patches advised to take ibuprofen every 6 hours, Tylenol every 4 as needed for pain or discomfort. Time: 20:37 MDM - Back Pain/Injury MDM Narrative Medical decision making narrative: 2034 26-year-old male presents with lower back pain status post heavy lifting. Physical examination with positive straight leg raise bilaterally, no midline tenderness with palpation, neuro nonfocal, no saddle paresthesias, normal deep tendon reflexes to lower extremities, ambulating with steady gait. Likely herniated disc or lumbar sprain/strain. Unlikely cauda equina or epidural abscess. Plan at this time is Toradol, Lidoderm patch Medical Records Attestation: I reviewed the patient's medical records. Lab Data Attestation: I reviewed the patient's lab results. Discharge Plan Discharge Clinical Impression: Lower back pain Patient Disposition: Home, Self-Care Additional Instructions: Take your medications as prescribed. If you were prescribed antibiotics today, it is important that you take your medication to their entirety, do not skip any doses, do not finish them early. Follow-up with your primary care provider this week. Return to the emergency department with new or worsening symptoms. Such as fevers, chills, chest pain, shortness of breath, nausea, vomiting, dizziness, headache, vision changes, lethargy In case of emergency call 911 If pain continues you should follow-up with your PCP as he may require an MRI for further evaluation and treatment of back pain. Cyclobenzaprine as a muscle relaxer can make you sleepy, please do not drive or operate machinery while on this medication. Prescriptions: New cyclobenzaprine 10 mg tablet 10 mg PO BEDTIME PRN (Reason: muscle spasm) Qty: 7 0RF lidocaine 5 % adhesive patch,medicated 1 patch topical DAILY PRN (Reason: pain) Qty: 15 0RF Rx Instructions: leave on most painful area for up to 12 hrs No Action Entyvio 300 mg recon soln 300 mg IV Q2W 14 Days Qty: 1 8RF Rx Instructions: Infuse 300mg IV at week 0, 2, 6, then every 8 weeks Coricidin HBP Cough and Cold 4-30 mg tablet 1 tab PO Q6H PRN (Reason: cough) Qty: 30 1RF cyclobenzaprine 10 mg tablet 10 mg PO BID PRN (Reason: muscle spasm) Qty: 10 0RF multivitamin Tablet 1 tab PO DAILY atomoxetine 25 mg capsule 1 cap PO QAM omeprazole 40 mg capsule,delayed release(DR/EC) 40 mg PO DAILY Qty: 30 0RF sucralfate 1 gram tablet 1 g PO BID Qty: 60 0RF ketorolac 10 mg tablet 10 mg PO Q6H PRN (Reason: pain) 5 Days Qty: 20 0RF Rx Instructions: 1. Patient received Toradol here in the emergency room. 2. Please instruct patient to stop all anti-inflammatory medications such as naproxen / Aleve/ ibuprofen /Motrin cyclobenzaprine 5 mg tablet 5 mg PO BEDTIME PRN (Reason: muscle spasm) Qty: 3 0RF azithromycin [Zithromax Z-Travis] 250 mg tablet See Rx Instructions .ROUTE .COMPLEX Qty: 6 0RF Rx Instructions: For 250 mg dose pack: take 500 mg today (day 1), then 250 mg for 4 days (days 2-5) neomycin-polymyxin B-dexameth [Maxitrol] 3.5mg/mL-10,000 unit/mL-0.1 % drops,suspension 1 drp ophthalmic (eye) Q8H Qty: 5 0RF Rx Instructions: One drop in each ear 3 times a day for 5 days (DME) Blood Pressure Cuff Misc See Rx Instructions .ROUTE .MEDSUPPLY Qty: 1 0RF Rx Instructions: blood pressure checks daily and as needed large cuff please lidocaine [Aspercreme (lidocaine)] 4 % adhesive patch,medicated 1 patch topical DAILY 30 Days Qty: 30 4RF clonidine HCl 0.1 mg tablet 0.15 mg PO TID 30 Days Qty: 135 1RF budesonide 3 mg capsule,delayed,extend.release 9 mg PO DAILY 30 Days Qty: 90 1RF Rx Instructions: open capsules and mix with apple sauce naproxen 500 mg tablet 500 mg PO BID PRN (Reason: Pain) Referrals: Shakira Higgins NP [Primary Care Provider] - 2 days Stand Alone Forms: Work/School Release Interventions: ED Discharge Assessment Last Done: 11/16/21 21:05
[2021-11-16] MEDS: Ketorolac Tromethamine 15 MG/ML VIAL 30 MG IM (20:54)
== END 2021-11-16 21:06 | disposition home or self-care (01) ==
PROVIDERS: Emergency Provider Student in an Organized Health Care Education/Training Program; PCP Hospitalist
DX: M54.50 Low back pain, unspecified (principal)
CPT/HCPCS: 96372; 99283; 99284; J1885

== ENCOUNTER 2021-11-29 16:14 | Emergency (ER) | payer OTHER, SELFPAY ==
--- NOTE | ~2021-11-29 | CT_ITS ---
EXAMINATION: CT ABDOMEN AND PELVIS WITH CONTRAST CLINICAL INFORMATION: Right-sided abdominal pain. COMPARISON: 08/14/2021 TECHNIQUE: Multidetector volumetric images were obtained from the superior aspect of the liver through the pubic symphysis following administration 85 mL of Omnipaque 350 intravenous contrast. Sagittal and coronal reformatted images were obtained on the technologist's workstation. Oral contrast: No This CT examination was performed using dose optimization techniques as appropriate, variously including the following: *Automated exposure control *Adjustment of mA and/or kV according to patient size (this includes techniques or standardized protocols for targeted exams where dose is matched to indication/reason for exam; i.e. extremities or head) *Use of iterative reconstruction technique DLP: 862 mGy-cm FINDINGS: LUNG BASES: The visualized lung bases are unremarkable. LIVER, GALLBLADDER, AND BILIARY TREE: The liver is normal in size, shape, and attenuation. No focal hepatic lesion or biliary ductal dilatation is present. The gallbladder is unremarkable with no evidence of radiopaque gallstones, gallbladder wall thickening, or obvious pericholecystic inflammatory changes. PANCREAS: Unremarkable. SPLEEN: Unremarkable. ADRENAL GLANDS: Unremarkable. KIDNEYS AND URETERS: The kidneys are normal in size, shape, and attenuation. No hydronephrosis, hydroureter, or calculi seen. No perinephric stranding. BLADDER: Unremarkable. GASTROINTESTINAL TRACT: The stomach is decompressed with no gross abnormality. Normal caliber small bowel. No obstruction. Normal appendix. No colonic wall thickening or acute inflammation. No free air or free fluid. ABDOMINAL WALL: No significant hernia is appreciated. LYMPH NODES: Normal. VASCULAR: Unremarkable. PELVIC VISCERA: The uterus and adnexa are unremarkable. OSSEOUS STRUCTURES: No acute or suspicious osseous abnormality. Mild degenerative change at L5-S1 with disc space narrowing and vacuum disc phenomenon. CT/CT abdomen pelvis w con IMPRESSION: No acute finding of the abdomen or pelvis. Normal appendix. No acute inflammatory change. Fleischner guidelines were followed.
[2021-11-29 16:17] VITALS: BP 123/80; PULSE 70; RESP 18; TEMP 36.2; O2SAT 97; BMI 30.6
[2021-11-29 16:49] LABS: MANUAL DIFF FLAG NO
[2021-11-29 16:52] LABS: Basophils Percent Auto 0.4 % (0-2); Eosinophils Absolute Auto 0.2 X10*3/uL (0.0-0.4); Eosinophils Percent Auto 1.9 % (0-4); Hematocrit 45.9 % (42.0-52.0); Hemoglobin 15.5 g/dl (14.0-18.0); Imm Gran Abs Auto 0.01 X10*3/uL (0.00-0.03); Imm Gran Pct Auto 0.1 % (0.0-0.4); Lymphocytes Absolute Auto 1.4 X10*3/uL (1.2-4.9); Lymphocytes Percent Auto 16.8 % (20-40); Mean Corpuscular HGB Conc 33.8 g/dl (31.0-36.0); Mean Corpuscular Hemoglobin 29.5 pg (27.0-33.0); Mean Corpuscular Volume 87.3 fL (80.0-98.0); Mean Platelet Volume 10.2 fL (9.4-12.4); Monocytes Absolute Auto 0.7 X10*3/uL (0.1-1.2); Monocytes Percent Auto 8.1 % (2-11); Neutrophils Absolute Auto 6.1 x10*3/uL (2.0-8.3); Neutrophils Percent Auto 72.7 % (45-73); Platelet Count 274 X10*3/uL (160-400); Red Blood Count 5.26 X10*6/uL (4.60-5.80); Red Cell Distribution Width 13.2 % (11.0-16.0); White Blood Count 8.4 X10*3/uL (4.8-10.8)
[2021-11-29 16:53] LABS: Appearance Urine Clear; Color Urine Yellow; Glucose Urine UA Negative (Negative); Leukocyte Esterase Urine Negative (Negative); Nitrite Urine Negative (Negative); PH 7.5 (5.0-8.0); Urine Blood Negative (Negative); Urine Ketones Negative (Negative); Urine Protein Negative (Neg-Trace)
[2021-11-29 17:06] LABS: Alanine Aminotransferase 28 U/L (0-40); Albumin Level 4.9 g/dL (3.5-5.0); Alkaline Phosphatase 75 U/L (39-117); Anion Gap 16 (12-20); Aspartate Amino Transferase 20 U/L (5-37); Bilirubin Direct 0.3 mg/dL (0.0-0.5); Bilirubin Total 0.7 mg/dL (0.0-1.0); Blood Urea Nitrogen 11 mg/dL (9-16); Calcium 10.1 mg/dL (8.4-10.2); Carbon Dioxide 26 mmol/L (22-29); Chloride 102 mmol/L (96-108); Creatinine Clr Calc Pharmacy 150.6; Estimated Glomerular Filt Rate > 60; Glucose Random 95 mg/dL (60-115); Potassium 4.7 mmol/L (3.3-5.1); Sodium 139 mmol/L (135-145); Total Protein 7.6 g/dL (6.5-8.0)
[2021-11-29 20:14] VITALS: BP 149/82; PULSE 64; RESP 18; TEMP 36.9; O2SAT 100
[2021-11-29 23:47] VITALS: BP 144/84; PULSE 73; RESP 65; TEMP 36.6; O2SAT 100
--- NOTE | 2021-11-29 23:50 | ED.ABDPAIN ---
HPI - Abdominal Pain General Chief Complaint: Abdominal Pain Stated Complaint: diarrhea, stomach pain Time Seen by Provider: 11/29/21 23:49 Source: patient and old records reviewed Mode of arrival: ambulatory Limitations: no limitations History of Present Illness HPI narrative: 26 yo male with hx of HTN, Crohn's ds on entyvio sees Bill (did miss last dose but has appointment this week) c/o right lower abdominal pain 3 days ago with some nausea made worse by eating and having BMs. He reports + flatus and no blood stools. MD elicited complaint: abdominal pain Pertinent past history: other (Crohn's) Onset (ago): day(s) (3) Pain Consistency: intermittent Location: periumbilical and RLQ Severity: moderate Quality: stabbing Radiation: none Migration to: no migration Exacerbating factors: eating and bowel movement Relieving factors: nothing Context: history of similar episodes Associated symptoms: nausea Related Data Home Medications Medication Instructions Recorded Confirmed multivitamin 1 tab PO DAILY 02/25/21 08/13/21 naproxen 500 mg tablet 500 mg PO BID PRN Pain 06/18/21 08/13/21 atomoxetine 25 mg capsule 1 cap PO QAM 08/13/21 08/13/21 Previous Rx's Medication Instructions Recorded cyclobenzaprine 10 mg tablet 10 mg PO BID PRN muscle spasm #10 10/30/20 tabs vedolizumab 300 mg intravenous 300 mg IV Q2W 14 days #1 ea 04/29/21 solution (Entyvio) lidocaine 4 % topical patch 1 patch topical DAILY pain 1 month 06/04/21 (Aspercreme (lidocaine)) #30 ea miscellaneous medical supply #1 ea 06/04/21 (Blood Pressure Cuff) budesonide 3 mg 9 mg PO DAILY 30 days #90 ea 06/16/21 capsule,delayed,extended release clonidine HCl 0.1 mg tablet 0.15 mg PO TID 1 month #135 tabs 07/02/21 omeprazole 40 mg capsule,delayed 40 mg PO DAILY #30 caps 08/14/21 release sucralfate 1 gram tablet 1 g PO BID #60 tabs 08/14/21 chlorpheniramine-dextromethorphan 1 tab PO Q6H PRN cough #30 tabs 08/19/21 4 mg-30 mg tablet (Coricidin HBP Cough and Cold) azithromycin 250 mg tablet See Rx Instructions PO .COMPLEX #6 10/06/21 (Zithromax Z-Travis) tabs imxyjvcd-rbdrzbibt-alppxewz 3.5 1 drp ophthalmic (eye) Q8H #5 mL 10/06/21 mg/mL-10,000 unit/mL-0.1% eye drops (Maxitrol) cyclobenzaprine 5 mg tablet 5 mg PO BEDTIME PRN muscle spasm 10/27/21 #3 tabs ketorolac 10 mg tablet 10 mg PO Q6H PRN pain 5 days #20 10/27/21 tabs cyclobenzaprine 10 mg tablet 10 mg PO BEDTIME PRN muscle spasm 11/16/21 #7 tabs lidocaine 5 % topical patch 1 patch topical DAILY PRN pain #15 11/16/21 ea Allergies Allergy/AdvReac Type Severity Reaction Status Date / Time penicillin V Allergy Intermediate rash Verified 10/27/21 00:15 Review of Systems Review of Systems Constitutional : No Weight loss, No Fever, No Chills ENT/Mouth : No sore throat, No Rhinorrhea Eyes: No Swelling, No Redness Cardiovascular : No Chest Pain, No SOB, NoEdema Respiratory : No Cough, No Sputum, No Wheezing Gastrointestinal : Positive Nausea, no Vomiting, positive Diarrhea, positive abdominal Pain, No Hematochezia, No Melena Genitourinary : No Dysuria, No Urinary Frequency, No Hematuria, No Urgency Musculoskeletal : No joint pain, No Myalgias, No Joint Swelling Skin : No Skin Lesions, No rash Neuro : No Weakness, No Numbness, No Dizziness, No Headache Psych : No Anxiety/Panic, No Depression Heme/Lymph: No Bruising, No Lymphadenopathy Endocrine : No Polyuria, No Polydipsia All other systems reviewed and are negative. [facility] Past Medical History Attestation statement: The following information was validated with the patient. Medical History Acquired genu valgum of both knees Acute Crohn's disease ADHD (attention deficit hyperactivity disorder) Arthritis Depression Eczema Scoliosis Spondylosis of lumbosacral spine without myelopathy Surgical History History of arthroscopy of both knees History of esophagogastroduodenoscopy (EGD) Hx of colonoscopy Family History Family History Father No problems noted. Mother Hypertension Maternal Grandfather Diabetes Stroke Other Anemia Social History Social History Household Members: Friend(s) Housing: Apartment Do you presently have visiting nurse or other home services: No Alcohol intake: current Alcohol intake frequency: a few times a month Alcohol type: beer Patient Tobacco Use Status: Former Tobacco user e-Cigarette/Vaping Use: Never Used Second Hand Smoke Exposure: No Advance Directives: No Advance Directives Information Provided: Yes service: No Current occupational status: employed Cognitive needs: No Hearing needs: No Vision needs: No Physical Exam ED Vital Signs: Vital Signs - 24 hr 11/29/21 16:17 11/29/21 20:14 11/29/21 23:47 Temperature 97.2 F 98.4 F 97.9 F Pulse Rate 70 64 73 Respiratory Rate 18 18 65 H Blood Pressure 123/80 149/82 H 144/84 H Pulse Oximetry 97 100 100 Oxygen Delivery Method Room Air Room Air Room Air 11/30/21 01:18 Temperature Pulse Rate 50 Respiratory Rate 22 H Blood Pressure 141/83 H Pulse Oximetry 100 Oxygen Delivery Method Room Air BMI result Body Mass Index 30.6 Appearance: Alert. Oriented X3. No acute distress. Eyes: Pupils equal, round and reactive to light. ENT: Pharynx normal. Neck: Normal inspection. Neck supple. CVS: Normal heart rate and rhythm. Pulses normal. Respiratory: No respiratory distress. Breath sounds normal. Abdomen: Soft and moderate periumbilical ttp no rebound Skin: Skin warm and dry. Normal skin color. Normal skin turgor. Extremities: No lower extremity edema. No calf ttp Neuro: Oriented X 3. No motor deficit. No sensory deficit. Course Course Course Narrative: signed out to Dr. Cooper pending CT scan MDM - Abdominal Pain MDM Narrative Medical decision making narrative: 26 yo male with hx of Crohn's ds missed last entyvoi dosing here with c/o nausea and abdominal pain he does have appointment with GI this week. At this time will obtain basic labs, CT scan, IVF and IV morphine for pain. Dispo per results and findings. Lab Data Result diagrams: 11/29/21 16:43 11/29/21 16:43 Labs: Lab Results 11/29/21 11/29/21 11/29/21 Range/Units 16:43 16:43 16:43 WBC 8.4 (4.8-10.8) X10*3/uL RBC 5.26 (4.60-5.80) X10*6/uL Hgb 15.5 (14.0-18.0) g/dl Hct 45.9 (42.0-52.0) % MCV 87.3 (80.0-98.0) fL MCH 29.5 (27.0-33.0) pg MCHC 33.8 (31.0-36.0) g/dl RDW 13.2 (11.0-16.0) % Plt Count 274 (160-400) X10*3/uL MPV 10.2 (9.4-12.4) fL Immature Gran % (Auto) 0.1 (0.0-0.4) % Neut % (Auto) 72.7 (45-73) % Lymph % (Auto) 16.8 L (20-40) % [place] % (Auto) 8.1 (2-11) % Eos % (Auto) 1.9 (0-4) % Baso % (Auto) 0.4 (0-2) % Lymph # (Auto) 1.4 (1.2-4.9) X10*3/uL [place] # (Auto) 0.7 (0.1-1.2) X10*3/uL Eos # (Auto) 0.2 (0.0-0.4) X10*3/uL Baso # (Auto) 0.0 (0.0-0.2) X10*3/uL Abs Immat Gran (auto) 0.01 (0.00-0.03) X10*3/uL Absolute Neuts (auto) 6.1 (2.0-8.3) x10*3/uL Absolute Nucleated RBC 0.000 (0.0-0.012) X10*3/uL Nucleated RBC % (auto) 0.0 (0.0-0.2) /100WBC Sodium 139 (135-145) mmol/L Potassium 4.7 (3.3-5.1) mmol/L Chloride 102 (96-108) mmol/L Carbon Dioxide 26 (22-29) mmol/L Anion Gap 16 (12-20) BUN 11 (9-16) mg/dL Creatinine 1.00 (0.5-1.4) mg/dL Estim Creat Clear Calc 150.6 Estimated GFR > 60 Random Glucose 95 (60-115) mg/dL Calcium 10.1 D (8.4-10.2) mg/dL Total Bilirubin 0.7 (0.0-1.0) mg/dL Direct Bilirubin 0.3 (0.0-0.5) mg/dL AST 20 (5-37) U/L ALT 28 (0-40) U/L Alkaline Phosphatase 75 (39-117) U/L C-Reactive Protein 0.24 (< or = 0.50) mg/dL Total Protein 7.6 (6.5-8.0) g/dL Albumin 4.9 (3.5-5.0) g/dL Lipase 27 (8-78) U/L Urine Color Yellow Urine Appearance Clear Urine pH 7.5 (5.0-8.0) Ur Specific [place] 1.010 (1.005-1.025) Urine Protein Negative (Neg-Trace) mg/dL Urine Glucose (UA) Negative (Negative) mg/dL Urine Ketones Negative (Negative) mg/dL Urine Blood Negative (Negative) Urine Nitrite Negative (Negative) Ur Leukocyte Esterase Negative (Negative) Discharge Plan Discharge Clinical Impression: Abdominal pain Patient Disposition: Still a Patient Prescriptions: No Action Entyvio 300 mg recon soln 300 mg IV Q2W 14 Days Qty: 1 8RF Rx Instructions: Infuse 300mg IV at week 0, 2, 6, then every 8 weeks Coricidin HBP Cough and Cold 4-30 mg tablet 1 tab PO Q6H PRN (Reason: cough) Qty: 30 1RF cyclobenzaprine 10 mg tablet 10 mg PO BID PRN (Reason: muscle spasm) Qty: 10 0RF multivitamin Tablet 1 tab PO DAILY atomoxetine 25 mg capsule 1 cap PO QAM omeprazole 40 mg capsule,delayed release(DR/EC) 40 mg PO DAILY Qty: 30 0RF sucralfate 1 gram tablet 1 g PO BID Qty: 60 0RF ketorolac 10 mg tablet 10 mg PO Q6H PRN (Reason: pain) 5 Days Qty: 20 0RF Rx Instructions: 1. Patient received Toradol here in the emergency room. 2. Please instruct patient to stop all anti-inflammatory medications such as naproxen / Aleve/ ibuprofen /Motrin cyclobenzaprine 5 mg tablet 5 mg PO BEDTIME PRN (Reason: muscle spasm) Qty: 3 0RF azithromycin [Zithromax Z-Travis] 250 mg tablet See Rx Instructions .ROUTE .COMPLEX Qty: 6 0RF Rx Instructions: For 250 mg dose pack: take 500 mg today (day 1), then 250 mg for 4 days (days 2-5) neomycin-polymyxin B-dexameth [Maxitrol] 3.5mg/mL-10,000 unit/mL-0.1 % drops,suspension 1 drp ophthalmic (eye) Q8H Qty: 5 0RF Rx Instructions: One drop in each ear 3 times a day for 5 days cyclobenzaprine 10 mg tablet 10 mg PO BEDTIME PRN (Reason: muscle spasm) Qty: 7 0RF lidocaine 5 % adhesive patch,medicated 1 patch topical DAILY PRN (Reason: pain) Qty: 15 0RF Rx Instructions: leave on most painful area for up to 12 hrs (DME) Blood Pressure Cuff Misc See Rx Instructions .ROUTE .MEDSUPPLY Qty: 1 0RF Rx Instructions: blood pressure checks daily and as needed large cuff please lidocaine [Aspercreme (lidocaine)] 4 % adhesive patch,medicated 1 patch topical DAILY 30 Days Qty: 30 4RF clonidine HCl 0.1 mg tablet 0.15 mg PO TID 30 Days Qty: 135 1RF budesonide 3 mg capsule,delayed,extend.release 9 mg PO DAILY 30 Days Qty: 90 1RF Rx Instructions: open capsules and mix with apple sauce naproxen 500 mg tablet 500 mg PO BID PRN (Reason: Pain)
[2021-11-30 00:07] LABS: C Reactive Protein 0.24 mg/dL (< or = 0.50); Lipase 27 U/L (8-78)
[2021-11-30] MEDS: Lactated Ringers 1,000 ML 999 ML IV (00:08)
[2021-11-30] MEDS: Morphine Sulfate 4 MG/ML CARTRIDGE IVPUSH (00:09)
[2021-11-30] MEDS: ondansetron HCL 4 MG/2 ML VIAL IVPUSH (00:09)
[2021-11-30 01:18] VITALS: BP 141/83; PULSE 50; RESP 22; O2SAT 100
[2021-11-30] MEDS: iohexoL 350 MG/ML 100 ML INFUS..BTL 85 ML IV (01:58)
[2021-11-30] MEDS: Dicyclomine HCl 10 MG CAPSULE 20 MG PO (03:13)
== END 2021-11-30 03:20 | disposition home or self-care (01) ==
PROVIDERS: Emergency Provider Emergency Medicine; PCP Hospitalist
DX: R10.9 Unspecified abdominal pain (principal); I10 Essential (primary) hypertension; E66.01 Morbid (severe) obesity due to excess calories; Z68.34 Body mass index [BMI] 34.0-34.9, adult
CPT/HCPCS: 36415; 74177; 80053; 81003; 82248; 83690; 85025; 86140; 96361; 96374; 96375; 99284; J2270; J2405; Q9967

== ENCOUNTER 2021-12-01 09:54 | Outpatient (REF) | payer OTHER, SELFPAY | END 2021-12-01 09:55 | disposition home or self-care (01) | LOC: HO.MDS 09:54 | PROVIDERS: PCP Hospitalist; Visit Provider Internal Medicine Gastroenterology | DX: K50.90 Crohn's disease, unspecified, without complications (principal) | CPT/HCPCS: 96365; J3380 ==

== ENCOUNTER 2021-12-04 18:45 | Outpatient (REF) | payer OTHER, SELFPAY ==
[2021-12-05 10:54] LABS: CDiff Gene PCR NEGATIVE (Negative)
== END 2021-12-04 18:46 | disposition home or self-care (01) ==
LOC: HO.LNP 18:45
PROVIDERS: Visit Provider Internal Medicine Gastroenterology
DX: R19.7 Diarrhea, unspecified (principal)
CPT/HCPCS: 87493; 87507

== ENCOUNTER 2021-12-10 | Outpatient (REF) | payer OTHER, SELFPAY ==
[2021-12-11 13:38] LABS: Adenovirus F 40/41 Not Detected (Not Detect.); Astrovirus Not Detected (Not Detect.); Campylobacter Not Detected (Not Detect.); Cryptosporidium Not Detected (Not Detect.); Cyclospora cayetanensis Not Detected (Not Detect.); E. coli EAEC Not Detected (Not Detect.); E. coli ETEC Not Detected (Not Detect.); E. coli STEC Not Detected (Not Detect.); Entamoeba histolytica Not Detected (Not Detect.); Giardia lamblia Not Detected (Not Detect.); Norovirus GI/GII Not Detected (Not Detect.); Plesiomonas shigelloides Not Detected (Not Detect.); Rotavirus A Not Detected (Not Detect.); Salmonella Not Detected (Not Detect.); Sapovirus Not Detected (Not Detect.); Shigella sp./EIEC Not Detected (Not Detect.); Vibrio Not Detected (Not Detect.); Vibrio Cholerae Not Detected (Not Detect.); Yersinia enterocolitica Not Detected (Not Detect.)
[2021-12-11 13:41] LABS: E. coli EPEC Detected (Not Detect.)
== END 2021-12-10 00:01 | disposition home or self-care (01) ==
LOC: HO.LNP
PROVIDERS: Visit Provider Internal Medicine Gastroenterology
DX: R19.7 Diarrhea, unspecified (principal)
CPT/HCPCS: 87507

== ENCOUNTER 2021-12-12 14:56 | Emergency (ER) | payer OTHER, SELFPAY ==
[2021-12-12 15:16] VITALS: BP 133/79; PULSE 54; RESP 16; TEMP 37.3; O2SAT 100; BMI 29.9
[2021-12-12 17:45] LABS: MANUAL DIFF FLAG NO
[2021-12-12 18:01] LABS: Alanine Aminotransferase 29 U/L (0-40); Albumin Level 4.7 g/dL (3.5-5.0); Alkaline Phosphatase 66 U/L (39-117); Anion Gap 16 (12-20); Aspartate Amino Transferase 48 U/L (5-37); Bilirubin Total 0.5 mg/dL (0.0-1.0); Blood Urea Nitrogen 8 mg/dL (9-16); Calcium 9.3 mg/dL (8.4-10.2); Carbon Dioxide 26 mmol/L (22-29); Chloride 107 mmol/L (96-108); Creatinine Clr Calc Pharmacy 175.5; Estimated Glomerular Filt Rate > 60; Glucose Random 87 mg/dL (60-115); Potassium 3.9 mmol/L (3.3-5.1); Sodium 145 mmol/L (135-145); Total Protein 7.2 g/dL (6.5-8.0)
[2021-12-12 18:17] LABS: Basophils Percent Auto 0.5 % (0-2); Eosinophils Absolute Auto 0.4 X10*3/uL (0.0-0.4); Eosinophils Percent Auto 5.4 % (0-4); Hematocrit 46.8 % (42.0-52.0); Hemoglobin 15.5 g/dl (14.0-18.0); Imm Gran Abs Auto 0.02 X10*3/uL (0.00-0.03); Imm Gran Pct Auto 0.3 % (0.0-0.4); Lymphocytes Absolute Auto 2.2 X10*3/uL (1.2-4.9); Lymphocytes Percent Auto 28.8 % (20-40); Mean Corpuscular HGB Conc 33.1 g/dl (31.0-36.0); Mean Corpuscular Hemoglobin 29.3 pg (27.0-33.0); Mean Corpuscular Volume 88.5 fL (80.0-98.0); Mean Platelet Volume 10.9 fL (9.4-12.4); Monocytes Absolute Auto 0.6 X10*3/uL (0.1-1.2); Monocytes Percent Auto 7.2 % (2-11); Neutrophils Absolute Auto 4.5 x10*3/uL (2.0-8.3); Neutrophils Percent Auto 57.8 % (45-73); Platelet Count 205 X10*3/uL (160-400); Red Blood Count 5.29 X10*6/uL (4.60-5.80); Red Cell Distribution Width 13.1 % (11.0-16.0); White Blood Count 7.8 X10*3/uL (4.8-10.8)
[2021-12-12 21:58] VITALS: BP 139/89; PULSE 56; RESP 18; TEMP 36.3; O2SAT 99
[2021-12-12 23:53] VITALS: BP 125/59; PULSE 54; RESP 18; TEMP 37; O2SAT 97
--- NOTE | 2021-12-13 00:26 | PC.NURSE ---
Awaiting urine sample. Pt. states that he does not have to pee at this time. Pt. is aware that we are awaiting a sample, and will let this RN know when he needs to go.
[2021-12-13 00:41] LABS: Lipase 19 U/L (8-78)
[2021-12-13] MEDS: Magnesium Hydrox/Alum Hydrox 30 ML ORAL.SUSP PO (01:26)
[2021-12-13] MEDS: Lidocaine HCl Viscous 2 % 15 ML SOLUTION 10 ML MUCOUS MEM (01:26)
--- NOTE | 2021-12-13 01:33 | ED_ITS ---
HPI - Abdominal Pain General Chief Complaint: Abdominal Pain Stated Complaint: stomach pain/fatigue/crohns flare up Time Seen by Provider: 12/12/21 23:47 Source: patient Mode of arrival: ambulatory History of Present Illness HPI narrative: 26-year-old male presents with complaints of upper abdominal pain that has not been associated with nausea, vomiting, fevers, chills and states that the pain does not improve with meals and has not been associated with inability to have a bowel movement and he states he continues to pass flatus and denies any melena or hematochezia. He is currently under the care of a primary care provider and is currently being followed by Gastroenterology, Dr. Khan. Related Data Home Medications Medication Instructions Recorded Confirmed multivitamin 1 tab PO DAILY 02/25/21 08/13/21 naproxen 500 mg tablet 500 mg PO BID PRN Pain 06/18/21 08/13/21 atomoxetine 25 mg capsule 1 cap PO QAM 08/13/21 08/13/21 Previous Rx's Medication Instructions Recorded cyclobenzaprine 10 mg tablet 10 mg PO BID PRN muscle spasm #10 10/30/20 tabs vedolizumab 300 mg intravenous 300 mg IV Q2W 14 days #1 ea 04/29/21 solution (Entyvio) miscellaneous medical supply #1 ea 06/04/21 (Blood Pressure Cuff) budesonide 3 mg 9 mg PO DAILY 30 days #90 ea 06/16/21 capsule,delayed,extended release clonidine HCl 0.1 mg tablet 0.15 mg PO TID 1 month #135 tabs 07/02/21 sucralfate 1 gram tablet 1 g PO BID #60 tabs 08/14/21 chlorpheniramine-dextromethorphan 1 tab PO Q6H PRN cough #30 tabs 08/19/21 4 mg-30 mg tablet (Coricidin HBP Cough and Cold) [id number] 3.5 1 drp ophthalmic (eye) Q8H #5 mL 10/06/21 mg/mL-10,000 unit/mL-0.1% eye drops (Maxitrol) dicyclomine 20 mg tablet 20 mg PO QID PRN abdominal pain 11/30/21 #20 tabs omeprazole 20 mg capsule,delayed 20 mg PO DAILY 14 days #14 caps 12/08/21 release sucralfate 100 mg/mL oral 10 ml PO BID #420 mL 12/13/21 suspension (Carafate) Allergies Allergy/AdvReac Type Severity Reaction Status Date / Time penicillin V Allergy Intermediate rash Verified 12/12/21 15:16 Review of Systems Review of Systems Pertinent positives and negatives as stated in HPI and 10 point review of systems is otherwise negative. [facility] Past Medical History Source: nursing notes reviewed Medical History Acquired genu valgum of both knees Acute Crohn's disease ADHD (attention deficit hyperactivity disorder) Arthritis Depression Eczema Scoliosis Spondylosis of lumbosacral spine without myelopathy Surgical History History of arthroscopy of both knees History of esophagogastroduodenoscopy (EGD) Hx of colonoscopy Family History Family History Father No problems noted. Mother Hypertension Maternal Grandfather Diabetes Stroke Other Anemia Social History Social History Household Members: Friend(s) Housing: Apartment Do you presently have visiting nurse or other home services: No Alcohol intake: current Alcohol intake frequency: holidays/special occasions only Alcohol type: beer Patient Tobacco Use Status: Former Tobacco user e-Cigarette/Vaping Use: Never Used Second Hand Smoke Exposure: No Use of substances other than those prescribed or required for medical reasons: No Advance Directives: No service: No Current occupational status: employed Cognitive needs: No Hearing needs: No Vision needs: No Physical Exam ED Vital Signs: Vital Signs - 24 hr 12/12/21 15:16 12/12/21 21:58 12/12/21 23:53 Temperature 99.1 F 97.3 F 98.6 F Pulse Rate 54 56 54 Respiratory Rate 16 18 18 Blood Pressure 133/79 139/89 125/59 L Pulse Oximetry 100 99 97 Oxygen Delivery Method Room Air Room Air Room Air BMI result Body Mass Index 29.9 VITAL SIGNS: Reviewed. GENERAL: Well developed, well nourished, in no acute distress. HEAD: Normocephalic/atraumatic EYES: PERRLA, EOMI EARS: Ext canals without abnormality OROPHARYNX: no oral lesions noted, posterior pharynx clear LUNGS: Normal breath sounds. No adventitious sounds or accessory muscle use. SpO2<99> CARDIOVASCULAR: Regular rate and rhythm without noted murmurs ABDOMEN: Soft, tenderness to palpation in the epigastric area without rebound, no masses or hernias noted, non-distended with bowel sounds. MUSCULOSKELETAL: No tenderness, deformities, or effusions noted on gross inspection. EXTREMITIES: No cyanosis, clubbing or edema. SKIN: Inspection of the skin reveals no rashes NEUROLOGIC: Alert and oriented x 4. Course Course Course Narrative: 26-year-old male with history and clinical presentation suggestive of possible gastritis/ulcer, patient reports that he is awaiting stool study results, and there is no current evidence of any infectious or blood loss etiologies. Patient has had prior CT scans which have been benign in nature and will treat for presumptive ulcer disease by providing a GI cocktail here in the emergency room and then discharging patient on a course Carafate with instructions to increase water intake. MDM - Abdominal Pain Lab Data Result diagrams: 12/12/21 17:38 12/12/21 17:38 Labs: Lab Results 12/12/21 12/12/21 Range/Units 17:38 17:38 WBC 7.8 (4.8-10.8) X10*3/uL RBC 5.29 (4.60-5.80) X10*6/uL Hgb 15.5 (14.0-18.0) g/dl Hct 46.8 (42.0-52.0) % MCV 88.5 (80.0-98.0) fL MCH 29.3 (27.0-33.0) pg MCHC 33.1 (31.0-36.0) g/dl RDW 13.1 (11.0-16.0) % Plt Count 205 D (160-400) X10*3/uL MPV 10.9 (9.4-12.4) fL Immature Gran % (Auto) 0.3 (0.0-0.4) % Neut % (Auto) 57.8 (45-73) % Lymph % (Auto) 28.8 (20-40) % Stokes % (Auto) 7.2 (2-11) % Eos % (Auto) 5.4 H (0-4) % Baso % (Auto) 0.5 (0-2) % Lymph # (Auto) 2.2 (1.2-4.9) X10*3/uL Stokes # (Auto) 0.6 (0.1-1.2) X10*3/uL Eos # (Auto) 0.4 (0.0-0.4) X10*3/uL Baso # (Auto) 0.0 (0.0-0.2) X10*3/uL Abs Immat Gran (auto) 0.02 (0.00-0.03) X10*3/uL Absolute Neuts (auto) 4.5 (2.0-8.3) x10*3/uL Absolute Nucleated RBC 0.000 (0.0-0.012) X10*3/uL Nucleated RBC % (auto) 0.0 (0.0-0.2) /100WBC Sodium 145 (135-145) mmol/L Potassium 3.9 (3.3-5.1) mmol/L Chloride 107 (96-108) mmol/L Carbon Dioxide 26 (22-29) mmol/L Anion Gap 16 (12-20) BUN 8 L (9-16) mg/dL Creatinine 0.85 (0.5-1.4) mg/dL Estim Creat Clear Calc 175.5 Estimated GFR > 60 Random Glucose 87 (60-115) mg/dL Calcium 9.3 D (8.4-10.2) mg/dL Total Bilirubin 0.5 (0.0-1.0) mg/dL AST 48 H D (5-37) U/L ALT 29 (0-40) U/L Alkaline Phosphatase 66 (39-117) U/L Total Protein 7.2 (6.5-8.0) g/dL Albumin 4.7 (3.5-5.0) g/dL Lipase 19 (8-78) U/L Discharge Plan Discharge Clinical Impression: Epigastric pain Patient Disposition: Home, Self-Care Instructions: Peptic Ulcer (ED), Gastritis (ED), Diet for Stomach Ulcers and Gastritis (ED), Epigastric Pain (ED) Additional Instructions: 1. Resume all home medications as prescribed. 2. Avoid all NSAIDs: Ibuprofen, Motrin, Aleve, Naprosyn as these can worsen your stomach condition. 3. Follow-up with your primary care provider as well as Dr. Khan for re- evaluation. Return to the ER for worsening symptoms. Prescriptions: New sucralfate [Carafate] 100 mg/mL suspension 10 ml PO BID Qty: 420 0RF No Action Entyvio 300 mg recon soln 300 mg IV Q2W 14 Days Qty: 1 8RF Rx Instructions: Infuse 300mg IV at week 0, 2, 6, then every 8 weeks Coricidin HBP Cough and Cold 4-30 mg tablet 1 tab PO Q6H PRN (Reason: cough) Qty: 30 1RF cyclobenzaprine 10 mg tablet 10 mg PO BID PRN (Reason: muscle spasm) Qty: 10 0RF multivitamin Tablet 1 tab PO DAILY atomoxetine 25 mg capsule 1 cap PO QAM sucralfate 1 gram tablet 1 g PO BID Qty: 60 0RF dicyclomine 20 mg tablet 20 mg PO QID PRN (Reason: abdominal pain) Qty: 20 0RF neomycin-polymyxin B-dexameth [Maxitrol] 3.5mg/mL-10,000 unit/mL-0.1 % drops,suspension 1 drp ophthalmic (eye) Q8H Qty: 5 0RF Rx Instructions: One drop in each ear 3 times a day for 5 days (DME) Blood Pressure Cuff Misc See Rx Instructions .ROUTE .MEDSUPPLY Qty: 1 0RF Rx Instructions: blood pressure checks daily and as needed large cuff please omeprazole 20 mg capsule,delayed release(DR/EC) 20 mg PO DAILY 14 Days Qty: 14 0RF clonidine HCl 0.1 mg tablet 0.15 mg PO TID 30 Days Qty: 135 1RF budesonide 3 mg capsule,delayed,extend.release 9 mg PO DAILY 30 Days Qty: 90 1RF Rx Instructions: open capsules and mix with apple sauce naproxen 500 mg tablet 500 mg PO BID PRN (Reason: Pain) Referrals: Shakira Higgins NP [Primary Care Provider] -
[2021-12-13 02:02] VITALS: BP 134/73; PULSE 58; RESP 18; TEMP 36.6; O2SAT 99
== END 2021-12-13 02:19 | disposition home or self-care (01) ==
PROVIDERS: Emergency Provider Student in an Organized Health Care Education/Training Program; PCP Hospitalist
DX: R10.13 Epigastric pain (principal); I10 Essential (primary) hypertension; K50.90 Crohn's disease, unspecified, without complications
CPT/HCPCS: 36415; 80053; 83690; 85025; 99283; 99284

== ENCOUNTER → 2021-12-29 11:37 | Outpatient (BNVA) | payer OTHER, SELFPAY | PROVIDERS: PCP Hospitalist; Visit Provider Internal Medicine Gastroenterology | DX: K50.90 Crohn's disease, unspecified, without complications (principal) | CPT/HCPCS: 99212 ==

== ENCOUNTER 2021-12-31 09:05 | Outpatient (REF) | payer OTHER, SELFPAY ==
[2021-12-31 09:20] LABS: MANUAL DIFF FLAG NO
[2021-12-31 09:43] LABS: Basophils Percent Auto 0.5 % (0-2); Eosinophils Absolute Auto 0.3 X10*3/uL (0.0-0.4); Eosinophils Percent Auto 5.2 % (0-4); Hematocrit 49.4 % (42.0-52.0); Hemoglobin 16.2 g/dl (14.0-18.0); Imm Gran Abs Auto 0.02 X10*3/uL (0.00-0.03); Imm Gran Pct Auto 0.3 % (0.0-0.4); Lymphocytes Absolute Auto 1.4 X10*3/uL (1.2-4.9); Lymphocytes Percent Auto 23.8 % (20-40); Mean Corpuscular HGB Conc 32.8 g/dl (31.0-36.0); Mean Corpuscular Volume 88.5 fL (80.0-98.0); Mean Platelet Volume 10.5 fL (9.4-12.4); Monocytes Absolute Auto 0.6 X10*3/uL (0.1-1.2); Neutrophils Absolute Auto 3.4 x10*3/uL (2.0-8.3); Neutrophils Percent Auto 59.2 % (45-73); Platelet Count 236 X10*3/uL (160-400); Red Blood Count 5.58 X10*6/uL (4.60-5.80); Red Cell Distribution Width 12.7 % (11.0-16.0); White Blood Count 5.7 X10*3/uL (4.8-10.8)
[2021-12-31 10:19] LABS: Alanine Aminotransferase 19 U/L (0-40); Alkaline Phosphatase 76 U/L (39-117); Anion Gap 15 (12-20); Aspartate Amino Transferase 13 U/L (5-37); Bilirubin Total 0.7 mg/dL (0.0-1.0); Blood Urea Nitrogen 10 mg/dL (9-16); C Reactive Protein 0.28 mg/dL (< or = 0.50); Calcium 10.1 mg/dL (8.4-10.2); Carbon Dioxide 29 mmol/L (22-29); Chloride 103 mmol/L (96-108); Estimated Glomerular Filt Rate > 60; Glucose Random 100 mg/dL (60-115); Potassium 4.6 mmol/L (3.3-5.1); Sodium 142 mmol/L (135-145); Total Protein 7.9 g/dL (6.5-8.0)
[2021-12-31 10:48] LABS: Erythrocyte Sedimentation Rate 2 MM/HR (0-15)
[2022-01-06 12:26] LABS: Testosterone, Free 81.1 pg/mL (35.0-155.0); Testosterone, Total 372 ng/dL (250-1100)
== END 2021-12-31 09:06 | disposition home or self-care (01) ==
LOC: HO.LAB 09:05
PROVIDERS: Internal Medicine Gastroenterology; PCP Hospitalist; Visit Provider Dentist Pediatric Dentistry
DX: K50.90 Crohn's disease, unspecified, without complications (principal); R79.89 Other specified abnormal findings of blood chemistry; Z79.899 Other long term (current) drug therapy
CPT/HCPCS: 36415; 80053; 80280; 82542; 84402; 84403; 85025; 85652; 86140

== ENCOUNTER 2022-01-05 15:16 | Outpatient (REF) | payer OTHER, SELFPAY ==
[2022-01-12 17:33] LABS: Lactoferrin, Fecal, Quant. <6.25 mcg/mL (<7.25)
== END 2022-01-05 15:17 | disposition home or self-care (01) ==
LOC: HO.LNP 15:16
PROVIDERS: Visit Provider Internal Medicine Gastroenterology
DX: K50.90 Crohn's disease, unspecified, without complications (principal)
CPT/HCPCS: 83631

== ENCOUNTER 2022-01-14 10:02 | Outpatient (REF) | payer OTHER, SELFPAY ==
--- NOTE | ~2022-01-14 | XR_ITS ---
EXAMINATION: XR KNEE, RIGHT XR KNEE, STANDING BILATERAL CLINICAL INFORMATION: Valgus deformity pain right knee COMPARISON: Left knee radiograph from 10/20/2019 TECHNIQUE: Single view of the bilateral standing knees, 2 views of the right knee FINDINGS: No acute visible fracture or dislocation. Mild to moderate multicompartment degenerative changes. Mixed density sclerotic focus in the left distal femoral metadiaphysis possibly representing an enchondroma versus bone island versus summation artifact, nonspecific. Narrowing of the bilateral medial femorotibial compartments. Spurring of the tibial spines. Periarticular osteophytes along the superior and inferior margin of the right patella. Fabella is noted in the right posterior compartment. Joint spaces and alignment are otherwise maintained. Soft tissues are unremarkable. XR/XR knee RT 2V IMPRESSION: 1. No acute visible fracture or dislocation. 2. Mild to moderate multicompartment degenerative changes. 3. Mixed density sclerotic focus in the left distal femoral metadiaphysis possibly representing an enchondroma versus bone island versus summation artifact, nonspecific.
--- NOTE | ~2022-01-14 | XR_ITS ---
EXAMINATION: XR KNEE, RIGHT XR KNEE, STANDING BILATERAL CLINICAL INFORMATION: Valgus deformity pain right knee COMPARISON: Left knee radiograph from 10/20/2019 TECHNIQUE: Single view of the bilateral standing knees, 2 views of the right knee FINDINGS: No acute visible fracture or dislocation. Mild to moderate multicompartment degenerative changes. Mixed density sclerotic focus in the left distal femoral metadiaphysis possibly representing an enchondroma versus bone island versus summation artifact, nonspecific. Narrowing of the bilateral medial femorotibial compartments. Spurring of the tibial spines. Periarticular osteophytes along the superior and inferior margin of the right patella. Fabella is noted in the right posterior compartment. Joint spaces and alignment are otherwise maintained. Soft tissues are unremarkable. XR/XR knee standing BI IMPRESSION: 1. No acute visible fracture or dislocation. 2. Mild to moderate multicompartment degenerative changes. 3. Mixed density sclerotic focus in the left distal femoral metadiaphysis possibly representing an enchondroma versus bone island versus summation artifact, nonspecific.
== END 2022-01-14 10:03 | disposition home or self-care (01) ==
LOC: HO.XRAY 10:02
PROVIDERS: PCP Hospitalist; Visit Provider Hospitalist
DX: M21.062 Valgus deformity, not elsewhere classified, left knee (principal); M21.061 Valgus deformity, not elsewhere classified, right knee
CPT/HCPCS: 73560; 73565

== ENCOUNTER 2022-01-21 09:04 | Outpatient (REF) | payer OTHER, SELFPAY ==
--- NOTE | ~2022-01-21 | MR_ITS ---
EXAMINATION: MR ABDOMEN AND PELVIS WITHOUT AND WITH CONTRAST CLINICAL INFORMATION: Crohn's disease without complications. COMPARISON: CT abdomen/pelvis 11/30/2021 and 08/14/2021 and 02/25/2021 TECHNIQUE: MRI of the abdomen and pelvis before and after the IV administration of 10 mL of Gadavist was obtained using routine sequences. 1500 mL of enteric contrast was administered. FINDINGS: LUNG BASES: No pleural or pericardial effusion. LIVER, GALLBLADDER, AND BILIARY TREE: The liver is normal in size and contour. No focal hepatic lesion. No biliary ductal dilatation. The gallbladder is unremarkable. PANCREAS: No ductal dilatation. SPLEEN: Not enlarged. ADRENAL GLANDS: No adrenal masses. KIDNEYS: Symmetric in size and enhancement. No hydronephrosis or perinephric stranding. BLADDER: Unremarkable. BOWEL AND PERITONEUM: No abnormally dilated loops of small and large bowel are appreciated. No focal bowel wall thickening. No mucosal hyperenhancement following intravenous contrast administration. Moderate retained stool in the colon. LYMPH NODES: No bulky abdominal or pelvic lymphadenopathy. VASCULAR: Unremarkable. 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 There are gastric/perigastric varices and paraesophageal varices. PELVIC VISCERA: The prostate and seminal vesicles are within normal limits. MR/MR abdomen wo/w con IMPRESSION: No acute abnormality in the abdomen or pelvis.
--- NOTE | ~2022-01-21 | MR_ITS ---
EXAMINATION: MR ABDOMEN AND PELVIS WITHOUT AND WITH CONTRAST CLINICAL INFORMATION: Crohn's disease without complications. COMPARISON: CT abdomen/pelvis 11/30/2021 and 08/14/2021 and 02/25/2021 TECHNIQUE: MRI of the abdomen and pelvis before and after the IV administration of 10 mL of Gadavist was obtained using routine sequences. 1500 mL of enteric contrast was administered. FINDINGS: LUNG BASES: No pleural or pericardial effusion. LIVER, GALLBLADDER, AND BILIARY TREE: The liver is normal in size and contour. No focal hepatic lesion. No biliary ductal dilatation. The gallbladder is unremarkable. PANCREAS: No ductal dilatation. SPLEEN: Not enlarged. ADRENAL GLANDS: No adrenal masses. KIDNEYS: Symmetric in size and enhancement. No hydronephrosis or perinephric stranding. BLADDER: Unremarkable. BOWEL AND PERITONEUM: No abnormally dilated loops of small and large bowel are appreciated. No focal bowel wall thickening. No mucosal hyperenhancement following intravenous contrast administration. Moderate retained stool in the colon. LYMPH NODES: No bulky abdominal or pelvic lymphadenopathy. VASCULAR: Unremarkable. 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 There are gastric/perigastric varices and paraesophageal varices. PELVIC VISCERA: The prostate and seminal vesicles are within normal limits. MR/MR pelvis wo/w con IMPRESSION: No acute abnormality in the abdomen or pelvis.
== END 2022-01-21 09:05 | disposition home or self-care (01) ==
LOC: HO.MRI 09:04
PROVIDERS: Visit Provider Internal Medicine Gastroenterology
DX: K50.90 Crohn's disease, unspecified, without complications (principal); K56.609 Unspecified intestinal obstruction, unspecified as to partial versus complete obstruction
CPT/HCPCS: 72197; 74183; A9585

== ENCOUNTER 2022-01-28 08:41 | Outpatient (REF) | payer OTHER, SELFPAY | END 2022-01-28 08:42 | disposition home or self-care (01) | LOC: HO.MDS 08:41 | PROVIDERS: Visit Provider Internal Medicine Gastroenterology | DX: K50.90 Crohn's disease, unspecified, without complications (principal) | CPT/HCPCS: 96365; J3380 ==

== ENCOUNTER 2022-03-11 08:43 | Outpatient (REF) | payer OTHER, SELFPAY | END 2022-03-11 08:44 | disposition home or self-care (01) | LOC: HO.MDS 08:43 | PROVIDERS: Visit Provider Internal Medicine Gastroenterology | DX: K50.90 Crohn's disease, unspecified, without complications (principal) | CPT/HCPCS: 96365; J3380 ==

== ENCOUNTER 2022-03-25 08:20 | Outpatient (REF) | payer OTHER, SELFPAY | END 2022-03-25 08:21 | disposition home or self-care (01) | LOC: HO.MDS 08:20 | PROVIDERS: Visit Provider Internal Medicine Gastroenterology | DX: K50.90 Crohn's disease, unspecified, without complications (principal) | CPT/HCPCS: 96365; J3380 ==

== ENCOUNTER 2022-04-23 07:52 | Outpatient (REF) | payer OTHER, SELFPAY ==
[2022-04-26 18:58] LABS: TS Negative Control Passed; TS Panel A 0; TS Panel B 1; TS Positive Control Passed; TSpotTB Negative (Negative)
== END 2022-04-23 07:53 | disposition home or self-care (01) ==
LOC: HO.MDS 07:52
PROVIDERS: Visit Provider Internal Medicine Gastroenterology
DX: K50.90 Crohn's disease, unspecified, without complications (principal); R76.11 Nonspecific reaction to tuberculin skin test without active tuberculosis
CPT/HCPCS: 36415; 86481; 96365; J3380

== ENCOUNTER 2022-05-06 23:55 | Emergency (ER) | payer OTHER, SELFPAY ==
--- NOTE | ~2022-05-06 | CT_ITS ---
EXAMINATION: CT ABDOMEN AND PELVIS WITH CONTRAST CLINICAL INFORMATION: Abdominal pain with history of Crohn's disease COMPARISON: 11/30/2021 TECHNIQUE: Multidetector volumetric images were obtained from the superior aspect of the liver through the pubic symphysis following administration 85 mL of Omnipaque 350 intravenous contrast. Sagittal and coronal reformatted images were obtained on the technologist's workstation. Oral contrast: No This CT examination was performed using dose optimization techniques as appropriate, variously including the following: *Automated exposure control *Adjustment of mA and/or kV according to patient size (this includes techniques or standardized protocols for targeted exams where dose is matched to indication/reason for exam; i.e. extremities or head) *Use of iterative reconstruction technique DLP: 756 mGy-cm FINDINGS: LUNG BASES: The visualized lung bases are unremarkable. LIVER, GALLBLADDER, AND BILIARY TREE: The liver is normal in size, shape, and attenuation. No focal hepatic lesion or biliary ductal dilatation is present. The gallbladder is unremarkable with no evidence of radiopaque gallstones, gallbladder wall thickening, or obvious pericholecystic inflammatory changes. PANCREAS: Unremarkable. SPLEEN: Unremarkable. ADRENAL GLANDS: Unremarkable. KIDNEYS AND URETERS: The kidneys are normal in size, shape, and attenuation. No hydronephrosis, hydroureter, or calculi seen. No perinephric stranding. BLADDER: Unremarkable. GASTROINTESTINAL TRACT: No evidence of bowel obstruction or significant wall thickening. No significant inflammatory changes are seen. Appendix appears nondilated. No free fluid or free air is seen. ABDOMINAL WALL: No significant hernia is appreciated. LYMPH NODES: Normal. VASCULAR: Unremarkable. PELVIC VISCERA: Unremarkable. OSSEOUS STRUCTURES: Unremarkable. CT/CT abdomen pelvis w IV con IMPRESSION: No acute findings identified in the abdomen/pelvis.
[2022-05-07 00:05] VITALS: BP 153/72; PULSE 78; RESP 20; TEMP 37; O2SAT 100; BMI 29.9
[2022-05-07 00:27] LABS: Hematocrit 46.7 % (42.0-52.0); Hemoglobin 15.5 g/dl (14.0-18.0); Mean Corpuscular HGB Conc 33.2 g/dl (31.0-36.0); Mean Corpuscular Hemoglobin 29.5 pg (27.0-33.0); Mean Corpuscular Volume 88.8 fL (80.0-98.0); Platelet Count 168 X10*3/uL (160-400); Red Blood Count 5.26 X10*6/uL (4.60-5.80); Red Cell Distribution Width 12.8 % (11.0-16.0); White Blood Count 8.1 X10*3/uL (4.8-10.8)
[2022-05-07 00:47] LABS: Alanine Aminotransferase 20 U/L (0-40); Albumin Level 4.6 g/dL (3.5-5.0); Alkaline Phosphatase 66 U/L (39-117); Anion Gap 16 (12-20); Aspartate Amino Transferase 24 U/L (5-37); Bilirubin Direct 0.4 mg/dL (0.0-0.5); Bilirubin Total 1.3 mg/dL (0.0-1.0); Blood Urea Nitrogen 15 mg/dL (9-16); Calcium 9.5 mg/dL (8.4-10.2); Carbon Dioxide 21 mmol/L (22-29); Chloride 106 mmol/L (96-108); Creatinine Clr Calc Pharmacy 179.7; Estimated Glomerular Filt Rate > 60; Glucose Random 96 mg/dL (60-115); Lipase 19 U/L (8-78); Potassium 4.7 mmol/L (3.3-5.1); Sodium 138 mmol/L (135-145); Total Protein 7.2 g/dL (6.5-8.0)
--- NOTE | 2022-05-07 00:57 | ED_ITS ---
HPI - Abdominal Pain General Chief Complaint: Abdominal Pain Stated Complaint: abd pain, has crohn's Time Seen by Provider: 05/07/22 00:35 Source: patient Mode of arrival: ambulatory Limitations: no limitations History of Present Illness HPI narrative: Patient with history of Crohn disease on Entivio since 01/01 comes here for mid abdominal pain with nausea since early today feels same as when he had flare-up of Crohn disease no bowel movement since pain started no fever no chills patient took his last dose of Entyvio on 04/26 patient MRI abdomen 01/31 showed normal bowels Related Data Home Medications Medication Instructions Recorded Confirmed multivitamin 1 tab PO DAILY 02/25/21 05/06/22 naproxen 500 mg tablet 500 mg PO BID PRN Pain 06/18/21 05/06/22 atomoxetine 25 mg capsule 1 cap PO QAM 08/13/21 05/06/22 Previous Rx's Medication Instructions Recorded cyclobenzaprine 10 mg tablet 10 mg PO BID PRN muscle spasm #10 10/30/20 tabs vedolizumab 300 mg intravenous 300 mg IV Q2W 14 days #1 ea 04/29/21 solution (Entyvio) miscellaneous medical supply #1 ea 06/04/21 (Blood Pressure Cuff) budesonide 3 mg 9 mg PO DAILY 30 days #90 ea 06/16/21 capsule,delayed,extended release chlorpheniramine-dextromethorphan 1 tab PO Q6H PRN cough #30 tabs 08/19/21 4 mg-30 mg tablet (Coricidin HBP Cough and Cold) [id number]-[id number]-jmhxihpz 3.5 1 drp ophthalmic (eye) Q8H #5 mL 10/06/21 mg/mL-10,000 unit/mL-0.1% eye drops (Maxitrol) dicyclomine 20 mg tablet 20 mg PO QID PRN abdominal pain 11/30/21 #20 tabs omeprazole 20 mg capsule,delayed 20 mg PO DAILY 14 days #14 caps 12/08/21 release clonidine HCl 0.1 mg tablet 0.1 mg PO TID #270 tabs 12/17/21 oxycodone 5 mg tablet 5 mg PO Q8H PRN pain #6 tabs 12/17/21 peg-electrolyte solution 420 gram 240 ml PO Q10M #4,000 mL 12/29/21 oral solution lidocaine 4 % topical cream 1 appl topical QID PRN pain #50 01/14/22 grams sucralfate 100 mg/mL oral 10 ml PO TID 1 month #900 mL 01/14/22 suspension (Carafate) dicyclomine 20 mg tablet 20 mg PO QID PRN abdominal pain 05/07/22 #20 tabs Allergies Allergy/AdvReac Type Severity Reaction Status Date / Time penicillin V Allergy Intermediate rash Verified 01/14/22 09:24 Review of Systems Review of Systems Yes all other systems are reviewed and are negative [facility] Past Medical History Medical History Acquired genu valgum of both knees Acute Crohn's disease ADHD (attention deficit hyperactivity disorder) Arthritis Depression Eczema Scoliosis Spondylosis of lumbosacral spine without myelopathy Surgical History History of arthroscopy of both knees History of esophagogastroduodenoscopy (EGD) Hx of colonoscopy Family History Family History Father No problems noted. Mother Hypertension Maternal Grandfather Diabetes Stroke Other Anemia Social History Social History Household Members: Friend(s) Housing: Apartment Do you presently have visiting nurse or other home services: No Alcohol intake: current Alcohol intake frequency: holidays/special occasions only Alcohol type: beer Patient Tobacco Use Status: Former Tobacco user e-Cigarette/Vaping Use: Never Used Second Hand Smoke Exposure: No Advance Directives: No service: No Current occupational status: employed Cognitive needs: No Hearing needs: No Vision needs: No Physical Exam ED Vital Signs: Vital Signs - 24 hr 05/07/22 00:05 05/07/22 02:02 05/07/22 04:10 Temperature 98.6 F 98.5 F 98.5 F Pulse Rate 78 62 65 Respiratory Rate 20 18 18 Blood Pressure 153/72 H 132/69 134/71 Pulse Oximetry 100 99 100 Oxygen Delivery Method Room Air Room Air Room Air BMI result Body Mass Index 29.9 Appearance: Alert. Oriented X3. No acute distress. Eyes: PERRLA, No Nystagmus ENT: Pharynx normal. Oral Mucosa moist Neck: Normal inspection. Neck supple. CVS: Normal heart rate and rhythm. Pulses normal. Respiratory: No respiratory distress. Equal air entry bilateral, no wheezing/rales/rhonchi Abdomen: Soft mild tenderness mid abdomen no rebound tenderness or guarding. Bowel sounds are present, no mass palpable, no CVA tenderness Skin: Skin warm and dry. Normal skin color. Normal skin turgor. Extremities: No lower extremity edema. No calf tenderness Neuro: Oriented X 3. No motor deficit. Medical Decision Making Medical Decision Making [facility] Narrative: Patient's Crohn disease on entivio with abdominal pain CT scan negative for any acute pathology CRP negative lab stable discharge patient home on [place] Lab Data [facility] Lab Attestation statement: I reviewed the patient's lab results. 05/07/22 00:21 05/07/22 00:21 Labs: Lab Results 05/07/22 05/07/22 Range/Units 00:21 00:21 WBC 8.1 (4.8-10.8) X10*3/uL RBC 5.26 (4.60-5.80) X10*6/uL Hgb 15.5 (14.0-18.0) g/dl Hct 46.7 (42.0-52.0) % MCV 88.8 (80.0-98.0) fL MCH 29.5 (27.0-33.0) pg MCHC 33.2 (31.0-36.0) g/dl RDW 12.8 (11.0-16.0) % Plt Count 168 D (160-400) X10*3/uL MPV 10.0 (9.4-12.4) fL Absolute Nucleated RBC 0.000 (0.0-0.012) X10*3/uL Nucleated RBC % (auto) 0.0 (0.0-0.2) /100WBC Sodium 138 (135-145) mmol/L Potassium 4.7 (3.3-5.1) mmol/L Chloride 106 (96-108) mmol/L Carbon Dioxide 21 L (22-29) mmol/L Anion Gap 16 (12-20) BUN 15 (9-16) mg/dL Creatinine 0.83 (0.5-1.4) mg/dL Estim Creat Clear Calc 179.7 Estimated GFR > 60 Random Glucose 96 (60-115) mg/dL Calcium 9.5 (8.4-10.2) mg/dL Total Bilirubin 1.3 H (0.0-1.0) mg/dL Direct Bilirubin 0.4 (0.0-0.5) mg/dL AST 24 (5-37) U/L ALT 20 (0-40) U/L Alkaline Phosphatase 66 (39-117) U/L C-Reactive Protein 0.37 (< or = 0.50) mg/dL Total Protein 7.2 (6.5-8.0) g/dL Albumin 4.6 (3.5-5.0) g/dL Lipase 19 (8-78) U/L Medications Administered Discontinued Medications Generic Name Dose Route Start Last Admin Trade Name Freq PRN Reason Stop Dose Admin Sodium Chloride 1,000 mls @ 999 mls/hr 05/07/22 01:13 05/07/22 03:00 Ns IV 05/07/22 02:13 Infused .Q1H1M ONE Infusion Iohexol 85 ml 05/07/22 02:27 05/07/22 02:29 Iohexol 350 Mg/Ml 100 Ml Infus..Btl IV 05/07/22 02:28 85 ml ONCE ONE Administration Morphine Sulfate 4 mg 05/07/22 01:14 05/07/22 01:42 Morphine Sulfate 4 Mg/Ml Cartridge IVPUSH 05/07/22 01:15 4 mg ONCE ONE Administration Protocol Ondansetron HCl 4 mg 05/07/22 01:14 05/07/22 01:42 Ondansetron Hcl 4 Mg/2 Ml Vial IVPUSH 05/07/22 01:15 4 mg ONCE ONE Administration Discharge Plan Discharge Clinical Impression: Abdominal pain, Crohn's disease Patient Disposition: Home, Self-Care Instructions: Crohn Disease (ED), Abdominal Pain (ED) Additional Instructions: The cause of abdominal pain is not very clear CT scan and blood report does not suggest any Crohn disease flare up Follow-up with your PCP/record librarian Dicyclomine for abdominal pain as needed Prescriptions: New dicyclomine 20 mg tablet 20 mg PO QID PRN (Reason: abdominal pain) Qty: 20 0RF No Action Entyvio 300 mg recon soln 300 mg IV Q2W 14 Days Qty: 1 8RF Rx Instructions: Infuse 300mg IV at week 0, 2, 6, then every 8 weeks Coricidin HBP Cough and Cold 4-30 mg tablet 1 tab PO Q6H PRN (Reason: cough) Qty: 30 1RF clonidine HCl 0.1 mg tablet 0.1 mg PO TID Qty: 270 1RF cyclobenzaprine 10 mg tablet 10 mg PO BID PRN (Reason: muscle spasm) Qty: 10 0RF multivitamin Tablet 1 tab PO DAILY atomoxetine 25 mg capsule 1 cap PO QAM dicyclomine 20 mg tablet 20 mg PO QID PRN (Reason: abdominal pain) Qty: 20 0RF neomycin-polymyxin B-dexameth [Maxitrol] 3.5mg/mL-10,000 unit/mL-0.1 % drops,suspension 1 drp ophthalmic (eye) Q8H Qty: 5 0RF Rx Instructions: One drop in each ear 3 times a day for 5 days (DME) Blood Pressure Cuff Misc See Rx Instructions .ROUTE .MEDSUPPLY Qty: 1 0RF Rx Instructions: blood pressure checks daily and as needed large cuff please omeprazole 20 mg capsule,delayed release(DR/EC) 20 mg PO DAILY 14 Days Qty: 14 0RF oxycodone 5 mg tablet 5 mg PO Q8H PRN (Reason: pain) Qty: 6 0RF Rx Instructions: Partial Fill upon patient request. sucralfate [Carafate] 100 mg/mL suspension 10 ml PO TID 30 Days Qty: 900 5RF lidocaine 4 % cream 1 appl topical QID PRN (Reason: pain) Qty: 50 4RF budesonide 3 mg capsule,delayed,extend.release 9 mg PO DAILY 30 Days Qty: 90 1RF Rx Instructions: open capsules and mix with apple sauce naproxen 500 mg tablet 500 mg PO BID PRN (Reason: Pain) peg-electrolyte soln 420 gram recon soln 240 ml PO Q10M Qty: 4000 0RF Rx Instructions: until fecal effluent is clear; do not exceed a total volume of 2,000 mL
[2022-05-07 01:34] LABS: C Reactive Protein 0.37 mg/dL (< or = 0.50)
[2022-05-07] MEDS: 0.9 % Sodium Chloride 1,000 ML 999 ML IV (01:41)
[2022-05-07] MEDS: ondansetron HCL 4 MG/2 ML VIAL IVPUSH (01:42)
[2022-05-07] MEDS: Morphine Sulfate 4 MG/ML CARTRIDGE IVPUSH (01:42)
[2022-05-07 02:02] VITALS: BP 132/69; PULSE 62; RESP 18; TEMP 36.9; O2SAT 99
[2022-05-07] MEDS: iohexoL 350 MG/ML 100 ML INFUS..BTL 85 ML IV (02:29)
[2022-05-07 04:10] VITALS: BP 134/71; PULSE 65; RESP 18; TEMP 36.9; O2SAT 100
== END 2022-05-07 04:42 | disposition home or self-care (01) ==
PROVIDERS: Emergency Provider Internal Medicine; PCP Hospitalist
DX: K50.10 Crohn's disease of large intestine without complications (principal); R10.9 Unspecified abdominal pain; Z79.899 Other long term (current) drug therapy
CPT/HCPCS: 36415; 74177; 80053; 82248; 83690; 85027; 86140; 96361; 96374; 96375; 99283; 99284; J2270; J2405; Q9967

== ENCOUNTER 2022-05-12 07:58 | Day surgery (SDC) | payer OTHER, SELFPAY ==
[2022-05-06 08:59] VITALS: BMI 32.1
[2022-05-12 08:34] VITALS: BP 127/79; PULSE 67; RESP 16; TEMP 36.4; O2SAT 100
--- NOTE | 2022-05-12 09:01 | P.HPSUR_ITS ---
Pre-Procedural Eval Section A Date of Service: 05/12/22 Section B Chief Complaint: Crohn's disease, unspecified, without complication Relevant Family History (Specify if Yes): No Relevant Social History: None Present Medications: see Short Stay Collaborative assessment Medical History: Significant History (Acquired genu valgum of both knees Acute Crohn's disease ADHD (attention deficit hyperactivity disorder) Arthritis Depression Eczema Scoliosis Spondylosis of lumbosacral spine without myelopathy) History of Previous Operations: Relevant previous surgery/procedure and date(s) (History of arthroscopy of both knees History of esophagogastroduodenoscopy (EGD) Hx of colonoscopy) Allergies: Allergies Allergy/AdvReac Type Severity Reaction Status Date / Time penicillin V Allergy Intermediate rash Verified 01/14/22 09:24 Review of Systems Sugical H&P ROS: Negative: Constitution, Cardiovascular, Respiratory, Neurological, Psychiatric, Hem-Onc, Allergic/Immunologic, Gastrointestinal, Genitourinary, Musculoskeletal, Integumentary, Endocrine and Eyes/Ears /Nose/Throat Exam Surgical H&P Exam: Normal: HEENT, Normal: Heart, Normal: Lungs, Normal: Extremities, Normal: Abdomen, Normal: Skin and Normal: Neurological Plan Diagnosis/Plan: Unchanged I have reviewed the history and physical and performed a pertinent physical examination on my patient. No changes have occurred unless specified. Time Spent With Patient Time: Total time managing care of this patient today ____ minutes.
--- NOTE | 2022-05-12 09:03 | W.PM.OPN ---
Operative Note Operative Note Date of Service: 05/12/22 Narrative: Operative Information Procedure Description: EGD, Colonoscopy Indication: nausea and crohns disease Anesthesia: MAC FLEXIBLE TRANSORAL UPPER GASTROINTESTINAL ENDOSCOPY AND COLONOSCOPY PROCEDURE NOTE UPPER ENDOSCOPY Consent: Indications for the procedure and potential complications of bleeding, perforation, reaction to medications and missed diagnosis were discussed with the patient and informed consent was obtained. Instrument: Olympus GIF H 190 J mid size upper endoscope Monitoring: Vital signs and clinical assessment, continuous EKG monitoring, Pulse oximetry, Carbon Dioxide monitoring and blood pressure monitoring were done throughout the procedure. Procedure: The patient was placed in the left lateral decubitis position and pre-procedure medications were administered and a bite block was placed. The endoscope was inserted into the mouth and advanced under direct vision to the third part of duodenum. A careful inspection was made as the upper endoscope was withdrawn including a retroflexed examination of the proximal stomach; Findings and interventions are described below. Findings: Larynx:normal Esophagus: GE junction at 41 cm, diaphragm hiatus at 41 cm, bogginess and erythema with swelling at GEJ with linear erosions noted, consistent with LA grade B erosive esophagitis--bx taken Stomach: Normal mucosa. Biopsies were obtained. Grade 2 flap valve on retroflexed examination of the cardia. Duodenum: Normal bulb and descending duodenum, bx taken Intervention: Biopsies as noted above COLONOSCOPY Instrument: Olympus variable stiffness pediatric scope 190L Colonoscopy Monitoring: Vital signs and clinical assessment, continuous EKG monitoring, Pulse oximetry, Carbon Dioxide monitoring and blood pressure monitoring were done throughout the procedure. Colon withdrawal time was 8 minutes. Procedure: The patient was placed in the left lateral decubitis position and pre-procedure medications were administered. After a digital rectal examination of the ano-rectum, the video colonoscope was inserted into the rectum and advanced through the colon to the cecum/TI. The colonoscope was slowly withdrawn in a retrograde panoramic fashion and the colon mucosa was carefully examined including a retroflexed view of the rectum. Findings and interventions are described below. Procedure Difficulty: easy Findings: random bx taken from TI, right colon, left colon and rectum Terminal Ileum-normal Cecum:normal Ascending Colon: normal Transverse Colon -normal Descending Colon:normal Sigmoid Colon: normal Rectum: Retroflexion with moderate sized internal hemorrhoids, grade I Anorectum - normal Colon preparation: [place] Bowel Preparation Scale Right colon; 2 Transverse colon: 2 Left colon; 2 (0 = Unprepared colon segment with mucosa not seen due to solid stool that cannot be cleared. 1 = Portion of mucosa of the colon segment seen, but other areas of the colon segment not well seen due to staining, residual stool and/or opaque liquid. 2 = Minor amount of residual staining, small fragments of stool and/or opaque liquid, but mucosa of colon segment seen well. 3 = Entire mucosa of colon segment seen well with no residual staining, small fragments of stool or opaque liquid) Impression and Post Procedure Diagnosis: Endoscopy Findings: erosive esophagitis Colonoscopy Findings: internal hemorrhoids Plan: Await Pathology results Repeat Colonoscopy in 2 years due to chronic crohns disease hx or earlier if clinically indicated High fiber diet leaflet avoid straining at stool, epsom salts and sitz bath, anusol supps or cream commence omeprazole 40 mg daily Above findings were reviewed with the patient and relevant handouts were provided if indicated.
--- NOTE | 2022-05-12 09:11 | P.CONAN_ITS ---
HPI - Anesthesia Eval Consult details Narrative: 26 yo male patient for EGD, Colonoscopy [facility] Active Problems Active Problems: All Active Problems (Updated 05/08/22 @ 00:02 by Otilio Souza) Normal physical exam (Acute) COVID-19 virus infection (Acute) 08/2021 HTN (hypertension) (Acute) Low testosterone in male (Acute) Hypertension due to drug (Acute) Elevated BP without diagnosis of hypertension (Acute) Morbidly obese (Acute) Small bowel obstruction (Acute) Crohn's disease (Acute) Abdominal pain (Acute) Right inguinal pain (Acute) Temporomandibular joint (TMJ) pain (Acute) Elevated blood pressure reading (Acute) Spondylosis of lumbosacral spine without myelopathy (Acute) Acquired genu valgum of both knees (Acute) Back pain (Acute) Attention and concentration deficit (Acute) Encounter for well adult exam with abnormal findings (Acute) Right testicular pain (Acute) BPV (benign positional vertigo) (Acute) Right-sided low back pain with sciatica (Acute) Past Medical History Medical History Acquired genu valgum of both knees Acute Crohn's disease ADHD (attention deficit hyperactivity disorder) Arthritis Depression Eczema Scoliosis Spondylosis of lumbosacral spine without myelopathy Family History Family History Father No problems noted. Mother Hypertension Maternal Grandfather Diabetes Stroke Other Anemia Family history of problems with anesthesia: No Surgical History Surgical History History of arthroscopy of both knees History of esophagogastroduodenoscopy (EGD) Hx of colonoscopy History of Problems with Anesthesia: No Social History Social History Household Members: Friend(s) Housing: Apartment Do you presently have visiting nurse or other home services: No Alcohol intake: current Alcohol intake frequency: holidays/special occasions only Alcohol type: beer Patient Tobacco Use Status: Former Tobacco user e-Cigarette/Vaping Use: Never Used Second Hand Smoke Exposure: No Advance Directives: No Advance Directives Information Provided: Yes service: No Current occupational status: employed Cognitive needs: No Hearing needs: No Vision needs: No Meds Allergies Allergy/AdvReac Type Severity Reaction Status Date / Time penicillin V Allergy Intermediate rash Verified 01/14/22 09:24 Active Medications: Current Medications Lactated Ringer's (Lr) 1,000 mls @ 50 mls/hr IVCONT .Q20H GAGE Home Medications Medication Instructions Recorded Confirmed Last Taken Type multivitamin 1 tab PO DAILY 02/25/21 05/06/22 Unknown History naproxen 500 mg tablet 500 mg PO BID PRN Pain 06/18/21 05/06/22 Unknown History atomoxetine 25 mg capsule 1 cap PO QAM 08/13/21 05/06/22 Unknown History Exam Exam Date and Time: May 12, 2022 0911 Height,Weight and Vital Signs: Height 6 ft 2 in Weight 113.398 kg Last Vital Signs Temp 97.6 F 05/12/22 08:34 Pulse 67 05/12/22 08:34 Resp 16 05/12/22 08:34 BP 127/79 05/12/22 08:34 Pulse Ox 100 05/12/22 08:34 O2 Del Method 05/12/22 08:34 Airway Mallampati Class: II TM Dist: >3cm Neck ROM: Full Loose/Missing/Broken Teeth: No (Denies broken, loose, missing teeth) Heart: RRR Lungs: CTAB Assessment and Plan Assessment Anesthesia Assessment: Anesthesia Plan Discussed and Chart Reviewed Final Anesthetic Review Family History of Problems with Anesthesia: No History of Problems with Anesthesia: No NPO: Yes ASA Class: II Final Preanesthetic Review: No Changes in Pt Med Stat, Meds/Allgs Chart Reviewed, Consent Obtained/Reviewed and Anes Risks/Benef Reviewed Patient Risk: Low Procedure Risk: Low Assessment/Block/Sedation in SS: Assess/Block/Sedation-SS Anesthetic Plan Anesthetic Plan: MAC: Disposition: Standard PACU
[2022-05-12 09:54] VITALS: BP 117/58; PULSE 81; RESP 17; TEMP 36.4; O2SAT 99
[2022-05-12 10:09] VITALS: BP 125/81; PULSE 55; RESP 16; TEMP 36.1; O2SAT 98
== END 2022-05-12 10:39 ==
LOC: HO.SSS 07:58
PROVIDERS: PCP Hospitalist; Visit Provider Internal Medicine Gastroenterology
PROC: (CPT 45380; principal; 2022-05-12 09:20)
DX: K50.90 Crohn's disease, unspecified, without complications (principal); K59.00 Constipation, unspecified; K64.0 First degree hemorrhoids; R11.0 Nausea; K20.80 Other esophagitis without bleeding; K44.9 Diaphragmatic hernia without obstruction or gangrene; F90.9 Attention-deficit hyperactivity disorder, unspecified type; F32.A Depression, unspecified; L30.9 Dermatitis, unspecified; M41.9 Scoliosis, unspecified; M47.816 Spondylosis without myelopathy or radiculopathy, lumbar region; Z79.899 Other long term (current) drug therapy; Z88.0 Allergy status to penicillin; Z87.891 Personal history of nicotine dependence
CPT/HCPCS: 45380; 43239; 88305; 88342

== ENCOUNTER → 2022-05-25 08:57 | Outpatient (BNVA) | payer OTHER, SELFPAY | PROVIDERS: PCP Hospitalist; Visit Provider Internal Medicine Gastroenterology | DX: K50.90 Crohn's disease, unspecified, without complications (principal); K20.80 Other esophagitis without bleeding | CPT/HCPCS: 99212 ==

== ENCOUNTER 2022-06-05 19:26 | Emergency (ER) | payer OTHER, SELFPAY ==
[2022-06-05 19:32] VITALS: BP 126/73; PULSE 71; RESP 16; TEMP 37; O2SAT 98; BMI 29.3
--- NOTE | 2022-06-05 19:32 | ED_ITS ---
HPI - General Adult General Chief complaint: Headache <KIMBERLEE Aleman - Last Filed: 06/05/22 19:32> Stated complaint: migraine <KIMBERLEE Aleman - Last Filed: 06/05/22 19:32> Time Seen by Provider: 06/05/22 22:30 <KIMBERLEE Aleman - Last Filed: 06/05/22 19:32> Source: patient <Angelika Field MD - Last Filed: 06/06/22 00:42> Mode of arrival: ambulatory <Angelika Field MD - Last Filed: 06/06/22 00:42> Limitations: no limitations <Angelika Field MD - Last Filed: 06/06/22 00:42> History of Present Illness HPI narrative: Patient comes to the emergency room complaining of ?a migraine headache?. Patient states that he has frequent headaches. Patient states that he has never been diagnosed with a migraine in the past, tried ibuprofen and Tylenol at home with no relief. Patient has never been seen by Neurology for these headaches. The headache has been present for approximately 12+ hours. Patient denies any visual changes, no nausea vomiting or diarrhea. <Angelika Field MD - Last Filed: 06/06/22 00:42> Related Data Home medications: Home Medications Medication Instructions Recorded Confirmed multivitamin 1 tab PO DAILY 02/25/21 05/06/22 atomoxetine 25 mg capsule 1 cap PO QAM 08/13/21 05/06/22 Previous Rx's Medication Instructions Recorded cyclobenzaprine 10 mg tablet 10 mg PO BID PRN muscle spasm #10 10/30/20 tabs miscellaneous medical supply #1 ea 06/04/21 (Blood Pressure Cuff) budesonide 3 mg 9 mg PO DAILY 30 days #90 ea 06/16/21 capsule,delayed,extended release chlorpheniramine-dextromethorphan 1 tab PO Q6H PRN cough #30 tabs 08/19/21 4 mg-30 mg tablet (Coricidin HBP Cough and Cold) [id number] 3.5 1 drp ophthalmic (eye) Q8H #5 mL 10/06/21 mg/mL-10,000 unit/mL-0.1% eye drops (Maxitrol) omeprazole 20 mg capsule,delayed 20 mg PO DAILY 14 days #14 caps 12/08/21 release clonidine HCl 0.1 mg tablet 0.1 mg PO TID #270 tabs 12/17/21 oxycodone 5 mg tablet 5 mg PO Q8H PRN pain #6 tabs 12/17/21 peg-electrolyte solution 420 gram 240 ml PO Q10M #4,000 mL 12/29/21 oral solution lidocaine 4 % topical cream 1 appl topical QID PRN pain #50 01/14/22 grams sucralfate 100 mg/mL oral 10 ml PO TID 1 month #900 mL 01/14/22 suspension (Carafate) dicyclomine 20 mg tablet 20 mg PO QID PRN abdominal pain 05/07/22 #20 tabs vedolizumab 300 mg intravenous 300 mg IV Q2W 8 weeks #1 ea 05/09/22 solution (Entyvio) pantoprazole 40 mg tablet,delayed 40 mg PO DAILY #60 tabs 05/12/22 release sumatriptan succinate 25 mg tablet See Rx Instructions PO .COMPLEX #7 06/06/22 tabs <KIMBERLEE Aleman - Last Filed: 06/05/22 19:32> Allergies/adverse reactions: Allergies Allergy/AdvReac Type Severity Reaction Status Date / Time penicillin V Allergy Intermediate rash Verified 05/25/22 09:02 <KIMBERLEE Aleman - Last Filed: 06/05/22 19:32> Review of Systems Review of Systems: Constitutional : No Weight loss, No Fever, No Chills, No Night Sweats, No Fatigue, No Malaise ENT/Mouth : No Hearing loss, No Ear Pain, No Nasal Congestion, No Sinus Pain, No Hoarseness, No sore throat, No Rhinorrhea, No Swallowing Difficulty Eyes: No Eye Pain, No Swelling, No Redness, No Foreign Body, No Discharge, No Vision Changes Cardiovascular : No Chest Pain, No SOB, No Dyspnea on Exertion, No Orthopnea, No Edema, No Palpitations Respiratory : No Cough, No Sputum, No Wheezing, No Smoke Exposure, No Dyspnea Gastrointestinal : No Nausea, No Vomiting, No Diarrhea, No Constipation, No abdominal Pain, No Hematochezia, No Melena Genitourinary : no irregular bleeding, No Dysuria, No Urinary Frequency, No Hematuria, No Urinary Incontinence, No Urgency, No Flank Pain, No Urinary Flow Changes, No Hesitancy Musculoskeletal : No joint pain, No Myalgias, No Joint Swelling Skin : No Skin Lesions, No rash Neuro : No Weakness, No Numbness, No Paresthesias, No Loss of Consciousness, No Dizziness, complaining of Headache Psych : No Anxiety/Panic, No Depression, No SI/HI/AH/VH, No Social Issues, Heme/Lymph: No Bruising, No Bleeding,No Lymphadenopathy Endocrine : No Polyuria, No Polydipsia, No Temperature Intolerance <Angelika Field MD - Last Filed: 06/06/22 00:42> [facility] Past Medical History Medical History: Medical History Acquired genu valgum of both knees Acute Crohn's disease ADHD (attention deficit hyperactivity disorder) Arthritis Depression Eczema Scoliosis Spondylosis of lumbosacral spine without myelopathy <KIMBERLEE Aleman - Last Filed: 06/05/22 19:32> Surgical History: Surgical History History of arthroscopy of both knees History of esophagogastroduodenoscopy (EGD) Hx of colonoscopy <KIMBERLEE Aleman - Last Filed: 06/05/22 19:32> Family History Family History: Family History Father No problems noted. Mother Hypertension Maternal Grandfather Diabetes Stroke Other Anemia <KIMBERLEE Aleman - Last Filed: 06/05/22 19:32> Social History Social History: Social History Household Members: Friend(s) Housing: Apartment Do you presently have visiting nurse or other home services: No Alcohol intake: current Alcohol intake frequency: holidays/special occasions only Alcohol type: beer Patient Tobacco Use Status: Former Tobacco user e-Cigarette/Vaping Use: Never Used Second Hand Smoke Exposure: No Advance Directives: No Advance Directives Information Provided: No service: No Current occupational status: employed Cognitive needs: No Hearing needs: No Vision needs: No <KIMBERLEE Aleman - Last Filed: 06/05/22 19:32> Physical Exam ED Vital Signs: Vital Signs - 24 hr 06/05/22 19:32 06/05/22 23:52 Temperature 98.6 F Pulse Rate 71 Respiratory Rate 16 16 Blood Pressure 126/73 Pulse Oximetry 98 Oxygen Delivery Method Room Air BMI result Body Mass Index 29.3 <KIMBERLEE Aleman - Last Filed: 06/05/22 19:32> Vital Signs - 24 hr 06/05/22 19:32 06/05/22 23:52 Temperature 98.6 F Pulse Rate 71 Respiratory Rate 16 16 Blood Pressure 126/73 Pulse Oximetry 98 Oxygen Delivery Method Room Air BMI result Body Mass Index 29.3 <Angelika Field MD - Last Filed: 06/06/22 00:42> Const Other: Appearance: Alert. Oriented X3. No acute distress. Eyes: Pupils equal, round and reactive to light. No photophobia ENT: Pharynx normal. Neck: Normal inspection. Neck supple. No lymph nodes noted. No crepitus CVS: Normal heart rate and rhythm. Pulses normal. Normal S1 and S2 Respiratory: No respiratory distress. Breath sounds normal. No Wheezing. No rales Abdomen: Soft and nontender. No rigidity. No distention. Skin: Skin warm and dry. Normal skin color. Normal skin turgor. Extremities: No lower extremity edema. No Lacerations. No Rash Neuro: Oriented X 3. No motor deficit. No sensory deficit. Moving all extremities. No slurred speech. CN 2 through 12 grossly intact Psych: calm, cooperative, normal affect <Angelika Field MD - Last Filed: 06/06/22 00:42> Course Course Course Narrative: RME performed by Angelina Reyna PA-C. Patient is a 26 year old male presenting to the emergency department with a migraine headache. Patient states that he has migraines often and this is another one. Patient placed back in the waiting room pending room availability. <KIMBERLEE Aleman - Last Filed: 06/05/22 19:32> Medications Administered Discontinued Medications Generic Name Dose Route Start Last Admin Trade Name Freq PRN Reason Stop Dose Admin Diphenhydramine HCl 25 mg 06/05/22 22:34 06/05/22 23:02 Diphenhydramine Hcl 50 Mg/Ml Vial IVPUSH 06/05/22 22:35 25 mg ONCE ONE Administration Sodium Chloride 1,000 mls @ 999 mls/hr 06/05/22 22:34 06/06/22 00:01 Ns IVCONT 06/05/22 23:34 Infused .Q1H1M ONE Infusion Metoclopramide HCl 10 mg 06/05/22 22:34 06/05/22 23:02 Metoclopramide Hcl 10 Mg/2 Ml Vial IVPUSH 06/05/22 22:35 10 mg ONCE ONE Administration Morphine Sulfate 4 mg 06/05/22 22:34 06/05/22 23:01 Morphine Sulfate 4 Mg/Ml Cartridge IVPUSH 06/05/22 22:35 4 mg ONCE ONE Administration Protocol <KIMBERLEE Aleman - Last Filed: 06/05/22 19:32> Medications Administered Discontinued Medications Generic Name Dose Route Start Last Admin Trade Name Rebekah PRN Reason Stop Dose Admin Diphenhydramine HCl 25 mg 06/05/22 22:34 06/05/22 23:02 Diphenhydramine Hcl 50 Mg/Ml Vial IVPUSH 06/05/22 22:35 25 mg ONCE ONE Administration Sodium Chloride 1,000 mls @ 999 mls/hr 06/05/22 22:34 06/06/22 00:01 Ns IVCONT 06/05/22 23:34 Infused .Q1H1M ONE Infusion Metoclopramide HCl 10 mg 06/05/22 22:34 06/05/22 23:02 Metoclopramide Hcl 10 Mg/2 Ml Vial IVPUSH 06/05/22 22:35 10 mg ONCE ONE Administration Morphine Sulfate 4 mg 06/05/22 22:34 06/05/22 23:01 Morphine Sulfate 4 Mg/Ml Cartridge IVPUSH 06/05/22 22:35 4 mg ONCE ONE Administration Protocol <Angelika Field MD - Last Filed: 06/06/22 00:42> Medical Decision Making Medical Decision Making MDM Narrative: -patient does not have a formal diagnosis for migraine headaches. -patient's physical exam within normal limits other than seeming a bit uncomfortable due to the headache, no neurological -patient being given IV fluids, IV Reglan, Benadryl and morphine. We will try to avoid NSAIDs, patient has significant history of Crohn's -overall patient states that he feels much better. -patient requesting the phone number for Neurology for follow-up, he would like to know if he has headaches versus migraines <Angelika Field MD - Last Filed: 06/06/22 00:42> Differential Diagnosis Differential Diagnoses: The differential diagnosis associated with the presentation includes (Tension headache, migraine headache) <Angelika Field MD - Last Filed: 06/06/22 00:42> Discharge Plan Discharge Clinical Impression: Headache <KIMBERLEE Aleman - Last Filed: 06/05/22 19:32> Patient Disposition: Home, Self-Care <KIMBERLEE Aleman - Last Filed: 06/05/22 19:32> Instructions: Acute Headache (ED) <KIMBERLEE Aleman - Last Filed: 06/05/22 19:32> Additional Instructions: Please follow-up with your primary care physician tomorrow. If you have any worsening or new symptoms, please return to the emergency room or call 911 <KIMBERLEE Aleman - Last Filed: 06/05/22 19:32> Prescriptions: New sumatriptan succinate 25 mg tablet See Rx Instructions .ROUTE .COMPLEX Qty: 7 0RF Rx Instructions: take 1 tab at onset of headache; if no relief may repeat 1 tab after at least 2 hrs; max = 4 tabs/24 hr No Action Coricidin HBP Cough and Cold 4-30 mg tablet 1 tab PO Q6H PRN (Reason: cough) Qty: 30 1RF clonidine HCl 0.1 mg tablet 0.1 mg PO TID Qty: 270 1RF Entyvio 300 mg recon soln 300 mg IV Q2W 56 Days Qty: 1 8RF Rx Instructions: Infuse 300mg IV at week 0, 2, 6, then every 8 weeks maintainence dose cyclobenzaprine 10 mg tablet 10 mg PO BID PRN (Reason: muscle spasm) Qty: 10 0RF multivitamin Tablet 1 tab PO DAILY atomoxetine 25 mg capsule 1 cap PO QAM dicyclomine 20 mg tablet 20 mg PO QID PRN (Reason: abdominal pain) Qty: 20 0RF neomycin-polymyxin B-dexameth [Maxitrol] 3.5mg/mL-10,000 unit/mL-0.1 % dr ops,suspension 1 drp ophthalmic (eye) Q8H Qty: 5 0RF Rx Instructions: One drop in each ear 3 times a day for 5 days pantoprazole 40 mg tablet,delayed release (DR/EC) 40 mg PO DAILY Qty: 60 2RF (DME) Blood Pressure Cuff Misc See Rx Instructions .ROUTE .MEDSUPPLY Qty: 1 0RF Rx Instructions: blood pressure checks daily and as needed large cuff please omeprazole 20 mg capsule,delayed release(DR/EC) 20 mg PO DAILY 14 Days Qty: 14 0RF oxycodone 5 mg tablet 5 mg PO Q8H PRN (Reason: pain) Qty: 6 0RF Rx Instructions: Partial Fill upon patient request. sucralfate [Carafate] 100 mg/mL suspension 10 ml PO TID 30 Days Qty: 900 5RF lidocaine 4 % cream 1 appl topical QID PRN (Reason: pain) Qty: 50 4RF budesonide 3 mg capsule,delayed,extend.release 9 mg PO DAILY 30 Days Qty: 90 1RF Rx Instructions: open capsules and mix with apple sauce peg-electrolyte soln 420 gram recon soln 240 ml PO Q10M Qty: 4000 0RF Rx Instructions: until fecal effluent is clear; do not exceed a total volume of 2,000 mL <KIMBERLEE Aleman - Last Filed: 06/05/22 19:32>
[2022-06-05] MEDS: 0.9 % Sodium Chloride 1,000 ML 999 ML IVCONT (22:58)
[2022-06-05] MEDS: Morphine Sulfate 4 MG/ML CARTRIDGE IVPUSH (23:01)
[2022-06-05] MEDS: diphenhydrAMINE HCL 50 MG/ML VIAL 25 MG IVPUSH (23:02)
[2022-06-05] MEDS: Metoclopramide HCl 10 MG/2 ML VIAL IVPUSH (23:02)
--- NOTE | 2022-06-05 23:08 | PC.NURSE ---
20G IV placed left wrist, medicated per provider for 7/10 pain in head, pt reports worse w movement, 1L NS running.
[2022-06-05 23:52] VITALS: RESP 16
--- NOTE | 2022-06-05 23:52 | PC.NURSE ---
pt sleeping, RR even and unlabored.
== END 2022-06-06 01:06 | disposition home or self-care (01) ==
PROVIDERS: Emergency Provider Emergency Medicine; PCP Hospitalist
DX: R51.9 Headache, unspecified (principal); Z79.899 Other long term (current) drug therapy
CPT/HCPCS: 96361; 96374; 96375; 99284; J1200; J2270; J2765

== ENCOUNTER 2022-06-08 09:51 | Outpatient (REF) | payer OTHER, SELFPAY | END 2022-06-08 09:52 | disposition home or self-care (01) | LOC: HO.MDS 09:51 | PROVIDERS: Visit Provider Internal Medicine Gastroenterology | DX: K50.90 Crohn's disease, unspecified, without complications (principal) | CPT/HCPCS: 96365; J3380 ==

== ENCOUNTER 2022-06-24 12:42 | Emergency (ER) | payer OTHER, SELFPAY ==
--- NOTE | 2022-06-24 13:18 | ED.URI ---
HPI - URI/Sore Throat General Chief Complaint: Upper Respiratory Symptoms Stated Complaint: Sore Throat Time Seen by Provider: 06/24/22 13:23 Source: patient Mode of arrival: ambulatory History of Present Illness HPI Narrative: 26yo M w/PMHx ADHD, chronic disease, arthritis/depression, eczema, complaining of sore throat x2 hours. Reports pain with swallowing. Denies inability to swallow, fever, chills, ear pain, sick contacts, SOB/CP MD elicited complaint: cough, rhinorrhea and nasal congestion Related Data Home Medications Medication Instructions Recorded Confirmed multivitamin 1 tab PO DAILY 02/25/21 05/06/22 atomoxetine 25 mg capsule 1 cap PO QAM 08/13/21 05/06/22 Previous Rx's Medication Instructions Recorded cyclobenzaprine 10 mg tablet 10 mg PO BID PRN muscle spasm #10 10/30/20 tabs miscellaneous medical supply #1 ea 06/04/21 (Blood Pressure Cuff) budesonide 3 mg 9 mg PO DAILY 30 days #90 ea 06/16/21 capsule,delayed,extended release chlorpheniramine-dextromethorphan 1 tab PO Q6H PRN cough #30 tabs 08/19/21 4 mg-30 mg tablet (Coricidin HBP Cough and Cold) [id number] 3.5 1 drp ophthalmic (eye) Q8H #5 mL 10/06/21 mg/mL-10,000 unit/mL-0.1% eye drops (Maxitrol) omeprazole 20 mg capsule,delayed 20 mg PO DAILY 14 days #14 caps 12/08/21 release clonidine HCl 0.1 mg tablet 0.1 mg PO TID #270 tabs 12/17/21 oxycodone 5 mg tablet 5 mg PO Q8H PRN pain #6 tabs 12/17/21 peg-electrolyte solution 420 gram 240 ml PO Q10M #4,000 mL 12/29/21 oral solution lidocaine 4 % topical cream 1 appl topical QID PRN pain #50 01/14/22 grams sucralfate 100 mg/mL oral 10 ml PO TID 1 month #900 mL 01/14/22 suspension (Carafate) dicyclomine 20 mg tablet 20 mg PO QID PRN abdominal pain 05/07/22 #20 tabs vedolizumab 300 mg intravenous 300 mg IV Q2W 8 weeks #1 ea 05/09/22 solution (Entyvio) pantoprazole 40 mg tablet,delayed 40 mg PO DAILY #60 tabs 05/12/22 release sumatriptan succinate 25 mg tablet See Rx Instructions PO .COMPLEX #7 06/06/22 tabs Allergies Allergy/AdvReac Type Severity Reaction Status Date / Time penicillin V Allergy Intermediate rash Verified 06/24/22 13:18 Review of Systems Review of Systems: Constitutional: No Fever, No Chills ENT/Mouth: No Ear Pain, No Nasal Congestion, No Sinus Pain, No Hoarseness, + sore throat, No Rhinorrhea, No Swallowing Difficulty Cardiovascular: No Chest Pain, No SOB Respiratory: No Cough, No Sputum Gastrointestinal: No Nausea, No Vomiting, No Diarrhea, No Constipation, No Abdominal pain Musculoskeletal: No joint pain, No Myalgias, No Joint Swelling Skin: No Skin Lesions, No rash Neuro: No Weakness, No Numbness Yes all other systems are reviewed and are negative Constitutional: Constitutional: Reports as per [facility] Past Medical History Attestation statement: The following information was validated with the patient. Medical History Acquired genu valgum of both knees Acute Crohn's disease ADHD (attention deficit hyperactivity disorder) Arthritis Depression Eczema Scoliosis Spondylosis of lumbosacral spine without myelopathy Surgical History History of arthroscopy of both knees History of esophagogastroduodenoscopy (EGD) Hx of colonoscopy Family History Family History Father No problems noted. Mother Hypertension Maternal Grandfather Diabetes Stroke Other Anemia Social History Social History Household Members: Friend(s) Housing: Apartment Do you presently have visiting nurse or other home services: No Alcohol intake: current Alcohol intake frequency: holidays/special occasions only Alcohol type: beer Patient Tobacco Use Status: Former Tobacco user e-Cigarette/Vaping Use: Never Used Second Hand Smoke Exposure: No Advance Directives: No Advance Directives Information Provided: No service: No Current occupational status: employed Cognitive needs: No Hearing needs: No Vision needs: No Physical Exam Vital Signs: Vital Signs: Last Vital Signs Temp 98.2 F 06/24/22 13:19 Pulse 60 06/24/22 13:19 Resp 16 06/24/22 13:19 BP 120/75 06/24/22 13:19 Pulse Ox 100 06/24/22 13:19 O2 Del Method 06/24/22 13:19 BMI result Body Mass Index 27.2 Const: General: cooperative, healthy appearing, comfortable and no acute distress Orientation/consciousness: patient oriented x3 Limitations: no limitations HEENT: Head: Yes normal to inspection and Yes atraumatic Ears: hearing grossly normal bilaterally, external ears normal, TM's normal bilaterally and mastoids normal General nose exam: Normal external nose present Face and sinus: Yes normal facial exam Mouth: Normal oral and palatal mucosa present Throat: Yes uvula midline, No peritonsillar mass, Yes posterior oropharynx abnormal (Mildly erythematous and swollen), No uvula laterally displaced and No uvular edema Eyes: General: appearance normal, both eyes and all related structures EOM: EOMs intact bilaterally Neck: Neck: Yes normal visual inspection, Yes no lymphadenopathy, Yes no meningeal signs, Yes supple and No anterior neck swelling Resp: Effort & Inspection: normal respiratory effort and no respiratory distress Auscultation: clear to auscultation bilaterally, no crackles, no rales, no rhonchi and no wheezes Cardio: Rate: regular rate Heart sounds: S1 normal heart sound present and S2 normal heart sound present Skin: Rashes: no rashes Wounds: no wounds Neuro: General: patient oriented x3, tone normal and no meningeal signs Gait exam (Neuro): Normal gait present Extrem: General: Yes normal to inspection Course Course Course Narrative: -COVID-19/influenza and rapid strep negative Results discussed with patient including worrisome signs and symptoms and strict return precautions, and when to return to the emergency department. They verbalized understanding and feel safe for discharge at this time. Medical Decision Making Medical Decision Making MDM Narrative: 26yo M w/PMHx ADHD, chronic disease, arthritis/depression, eczema, complaining of sore throat x2 hours. On exam VSS, NAD, nontoxic, mild erythema/tonsillar swelling noted, uvula midline, talking in complete sentences, lungs CTA. Concern for viral syndrome vs strep. 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 Differential Diagnosis Differential Diagnoses: The differential diagnosis associated with the presentation includes As above Admission/Observation Consideration of admission/observation: Escalation of care including admission/observation considered Lab Data MDM Lab Attestation statement: I reviewed the patient's lab results. Labs: Lab Results 06/24/22 06/24/22 06/24/22 Range/Units 13:25 13:26 13:26 COVID-19 (AMY) Negative (Negative) COVID-19 Clin Com See Note Influenza Type A (STEPHENIE) Negative (Negative) Influenza Type B (STEPHENIE) Negative (Negative) Influenza A & B Note See Note S. pyogenes GrpA STEPHENIE Negative (Negative) Radiology Impression Discussion of test interpretation with radiology: I have reviewed the radiologist's reading. External Record Review External record reviewed: Inpatient record, Office record, Outpatient record, Prior outpatient labs, Prior outpatient radiology, Primary care record and Outside ED record Discharge Plan Discharge Clinical Impression: Acute pharyngitis Patient Disposition: Home, Self-Care Instructions: Pharyngitis (ED) Prescriptions: No Action Coricidin HBP Cough and Cold 4-30 mg tablet 1 tab PO Q6H PRN (Reason: cough) Qty: 30 1RF clonidine HCl 0.1 mg tablet 0.1 mg PO TID Qty: 270 1RF Entyvio 300 mg recon soln 300 mg IV Q2W 56 Days Qty: 1 8RF Rx Instructions: Infuse 300mg IV at week 0, 2, 6, then every 8 weeks maintainence dose cyclobenzaprine 10 mg tablet 10 mg PO BID PRN (Reason: muscle spasm) Qty: 10 0RF multivitamin Tablet 1 tab PO DAILY atomoxetine 25 mg capsule 1 cap PO QAM dicyclomine 20 mg tablet 20 mg PO QID PRN (Reason: abdominal pain) Qty: 20 0RF sumatriptan succinate 25 mg tablet See Rx Instructions .ROUTE .COMPLEX Qty: 7 0RF Rx Instructions: take 1 tab at onset of headache; if no relief may repeat 1 tab after at least 2 hrs; max = 4 tabs/24 hr neomycin-polymyxin B-dexameth [Maxitrol] 3.5mg/mL-10,000 unit/mL-0.1 % drops,suspension 1 drp ophthalmic (eye) Q8H Qty: 5 0RF Rx Instructions: One drop in each ear 3 times a day for 5 days pantoprazole 40 mg tablet,delayed release (DR/EC) 40 mg PO DAILY Qty: 60 2RF (DME) Blood Pressure Cuff Misc See Rx Instructions .ROUTE .MEDSUPPLY Qty: 1 0RF Rx Instructions: blood pressure checks daily and as needed large cuff please omeprazole 20 mg capsule,delayed release(DR/EC) 20 mg PO DAILY 14 Days Qty: 14 0RF oxycodone 5 mg tablet 5 mg PO Q8H PRN (Reason: pain) Qty: 6 0RF Rx Instructions: Partial Fill upon patient request. sucralfate [Carafate] 100 mg/mL suspension 10 ml PO TID 30 Days Qty: 900 5RF lidocaine 4 % cream 1 appl topical QID PRN (Reason: pain) Qty: 50 4RF budesonide 3 mg capsule,delayed,extend.release 9 mg PO DAILY 30 Days Qty: 90 1RF Rx Instructions: open capsules and mix with apple sauce peg-electrolyte soln 420 gram recon soln 240 ml PO Q10M Qty: 4000 0RF Rx Instructions: until fecal effluent is clear; do not exceed a total volume of 2,000 mL Referrals: Shakira Higgins LASTING ROOM MACHINE OPERATOR [Primary Care Provider] - 3 days
[2022-06-24 13:19] VITALS: BP 120/75; PULSE 60; RESP 16; TEMP 36.8; O2SAT 100; BMI 27.2
[2022-06-24 13:59] LABS: IDNOW Serial# 08D9AD1C; Strep A Nucleic Acid Negative (Negative)
[2022-06-24 14:07] LABS: IDNOW Serial# 9DB6401D; Influenza A Negative (Negative); Influenza B2 Negative (Negative)
[2022-06-24 14:08] LABS: COVID-19 Test Negative (Negative); IDNOW Serial# BCCEAD1C
== END 2022-06-24 14:36 | disposition home or self-care (01) ==
PROVIDERS: Physician Assistant; Emergency Provider Emergency Medicine; PCP Hospitalist
DX: J02.9 Acute pharyngitis, unspecified (principal); R13.10 Dysphagia, unspecified; Z20.828 Contact with and (suspected) exposure to other viral communicable diseases; Z20.822 Contact with and (suspected) exposure to COVID-19; Z87.891 Personal history of nicotine dependence; Z79.899 Other long term (current) drug therapy
CPT/HCPCS: 87502; 87635; 87651; 99282; 99283

== ENCOUNTER 2022-07-08 10:20 | Emergency (ER) | payer OTHER, SELFPAY ==
--- NOTE | ~2022-07-08 | CT_ITS ---
EXAMINATION: CT ABDOMEN AND PELVIS WITH CONTRAST CLINICAL INFORMATION: Crohn's flare. COMPARISON: CT scans dating between May 07, 2022 and June 17, 2017. TECHNIQUE: Multidetector volumetric images were obtained from the superior aspect of the liver through the pubic symphysis following administration 85 mL of Omnipaque 350 intravenous contrast. Sagittal and coronal reformatted images were obtained on the technologist's workstation. Oral contrast: Yes This CT examination was performed using dose optimization techniques as appropriate, variously including the following: *Automated exposure control *Adjustment of mA and/or kV according to patient size (this includes techniques or standardized protocols for targeted exams where dose is matched to indication/reason for exam; i.e. extremities or head) *Use of iterative reconstruction technique DLP: 666 mGy-cm FINDINGS: LUNG BASES: The lung bases appear clear, with no evidence of inflammation or nodules. LIVER, GALLBLADDER, AND BILIARY TREE: The liver appears unremarkable in size, shape, and attenuation. No focal hepatic lesion or biliary ductal dilatation is appreciated. Unremarkable appearance of the gallbladder. PANCREAS: Unremarkable SPLEEN: Unremarkable ADRENAL GLANDS: Unremarkable KIDNEYS AND URETERS: The kidneys appear unremarkable in size, shape, and attenuation. No hydronephrosis, hydroureter, or calculi seen. BLADDER: Unremarkable GASTROINTESTINAL TRACT: Limited by paucity of intra-abdominal fat. The small and large bowel appear unremarkable. No wall thickening, abscess, or fistula formation identified. ABDOMINAL WALL: No significant hernia is appreciated. LYMPH NODES: No evidence of adenopathy by size criteria. VASCULAR: Unremarkable PELVIC VISCERA: Unremarkable OSSEOUS STRUCTURES: Unremarkable CT/CT abdomen pelvis w IV con IMPRESSION: Unremarkable CT scans of the abdomen and pelvis with oral and intravenous contrast.
[2022-07-08 10:25] VITALS: BP 119/67; PULSE 63; RESP 16; TEMP 36.5; O2SAT 97; BMI 29.5
[2022-07-08 10:43] LABS: MANUAL DIFF FLAG NO
[2022-07-08 10:46] LABS: Appearance Urine Clear; Basophils Percent Auto 0.5 % (0-2); Color Urine Yellow; Eosinophils Absolute Auto 0.1 X10*3/uL (0.0-0.4); Eosinophils Percent Auto 1.1 % (0-4); Glucose Urine UA Negative (Negative); Hematocrit 45.5 % (42.0-52.0); Hemoglobin 15.2 g/dl (14.0-18.0); Imm Gran Abs Auto 0.02 X10*3/uL (0.00-0.03); Imm Gran Pct Auto 0.3 % (0.0-0.4); Leukocyte Esterase Urine Negative (Negative); Lymphocytes Absolute Auto 1.5 X10*3/uL (1.2-4.9); Mean Corpuscular HGB Conc 33.4 g/dl (31.0-36.0); Mean Corpuscular Hemoglobin 29.6 pg (27.0-33.0); Mean Corpuscular Volume 88.5 fL (80.0-98.0); Mean Platelet Volume 9.9 fL (9.4-12.4); Monocytes Absolute Auto 0.5 X10*3/uL (0.1-1.2); Monocytes Percent Auto 7.7 % (2-11); Neutrophils Absolute Auto 4.2 x10*3/uL (2.0-8.3); Neutrophils Percent Auto 66.4 % (45-73); Nitrite Urine Negative (Negative); PH 6.5 (5.0-9.0); Platelet Count 219 X10*3/uL (160-400); Red Blood Count 5.14 X10*6/uL (4.60-5.80); Red Cell Distribution Width 12.9 % (11.0-16.0); Urine Blood Negative (Negative); Urine Ketones Negative (Negative); Urine Protein Negative (Neg-Trace); White Blood Count 6.3 X10*3/uL (4.8-10.8)
--- NOTE | 2022-07-08 10:57 | ED.ABDPAIN ---
HPI - Abdominal Pain General Chief Complaint: Abdominal Pain Stated Complaint: Chrons flare? Fatigue/abd pain Time Seen by Provider: 07/08/22 10:49 Source: patient Mode of arrival: ambulatory Limitations: no limitations History of Present Illness HPI narrative: Abdominal pain and fatigue that feels like his chrohns flair. Started this morning. Patient with diarrhea x 1 no blood. Patient is followed by Dr. Blankenship of GI. Patient gets prednisone for a flare. Patient is on Entyvio for his maintenance. MD elicited complaint: abdominal pain Pertinent past history: other (Chronhn's) Onset (ago): hour(s) Associated symptoms: diarrhea Related Data Home Medications Medication Instructions Recorded Confirmed multivitamin 1 tab PO DAILY 02/25/21 05/06/22 atomoxetine 25 mg capsule 1 cap PO QAM 08/13/21 05/06/22 Previous Rx's Medication Instructions Recorded cyclobenzaprine 10 mg tablet 10 mg PO BID PRN muscle spasm #10 10/30/20 tabs miscellaneous medical supply #1 ea 06/04/21 (Blood Pressure Cuff) budesonide 3 mg 9 mg PO DAILY 30 days #90 ea 06/16/21 capsule,delayed,extended release chlorpheniramine-dextromethorphan 1 tab PO Q6H PRN cough #30 tabs 08/19/21 4 mg-30 mg tablet (Coricidin HBP Cough and Cold) [id number] 3.5 1 drp ophthalmic (eye) Q8H #5 mL 10/06/21 mg/mL-10,000 unit/mL-0.1% eye drops (Maxitrol) omeprazole 20 mg capsule,delayed 20 mg PO DAILY 14 days #14 caps 12/08/21 release clonidine HCl 0.1 mg tablet 0.1 mg PO TID #270 tabs 12/17/21 oxycodone 5 mg tablet 5 mg PO Q8H PRN pain #6 tabs 12/17/21 peg-electrolyte solution 420 gram 240 ml PO Q10M #4,000 mL 12/29/21 oral solution lidocaine 4 % topical cream 1 appl topical QID PRN pain #50 01/14/22 grams sucralfate 100 mg/mL oral 10 ml PO TID 1 month #900 mL 01/14/22 suspension (Carafate) dicyclomine 20 mg tablet 20 mg PO QID PRN abdominal pain 05/07/22 #20 tabs vedolizumab 300 mg intravenous 300 mg IV Q2W 8 weeks #1 ea 05/09/22 solution (Entyvio) pantoprazole 40 mg tablet,delayed 40 mg PO DAILY #60 tabs 05/12/22 release sumatriptan succinate 25 mg tablet See Rx Instructions PO .COMPLEX #7 06/06/22 tabs Allergies Allergy/AdvReac Type Severity Reaction Status Date / Time penicillin V Allergy Intermediate rash Verified 07/08/22 10:27 Review of Systems Review of Systems Yes all other systems are reviewed and are negative Gastrointestinal: Reports abdominal pain and Reports diarrhea PMFSH Past Medical History Medical History Acquired genu valgum of both knees Acute Crohn's disease ADHD (attention deficit hyperactivity disorder) Arthritis Depression Eczema Scoliosis Spondylosis of lumbosacral spine without myelopathy Surgical History History of arthroscopy of both knees History of esophagogastroduodenoscopy (EGD) Hx of colonoscopy Family History Family History Father No problems noted. Mother Hypertension Maternal Grandfather Diabetes Stroke Other Anemia Social History Social History Household Members: Friend(s) Housing: Apartment Do you presently have visiting nurse or other home services: No Alcohol intake: current Alcohol intake frequency: holidays/special occasions only Alcohol type: beer Patient Tobacco Use Status: Former Tobacco user e-Cigarette/Vaping Use: Never Used Second Hand Smoke Exposure: No Advance Directives: No Advance Directives Information Provided: No service: No Current occupational status: employed Cognitive needs: No Hearing needs: No Vision needs: No Physical Exam ED Vital Signs: Vital Signs - 24 hr 07/08/22 10:25 07/08/22 13:40 07/08/22 16:12 Temperature 97.7 F 99.2 F 98.3 F Pulse Rate 63 56 53 Respiratory Rate 16 16 16 Blood Pressure 119/67 131/71 122/72 Pulse Oximetry 97 100 100 Oxygen Delivery Method Room Air Room Air Room Air BMI result Body Mass Index 29.5 Const General: healthy appearing Nutritional Appearance: average body habitus Orientation/consciousness: oriented to person and patient oriented x3 Limitations: no limitations HENMT Head: Yes normal to inspection Ears: external ears normal General nose exam: Normal external nose present Mouth: Normal oral and palatal mucosa present and oropharynx normal Throat: Yes posterior oropharynx normal Eyes General: appearance normal, both eyes and all related structures Neck Neck: Yes normal visual inspection Chest Chest palpation & inspection: normal inspection of the chest Resp Auscultation: clear to auscultation bilaterally Cardio Jugular venous distension: no JVD Rate: regular rate Rhythm: regular rhythm Heart sounds: S1 normal heart sound present and S2 normal heart sound present GI Other: mild epigastric pain Inspection: Yes normal to inspection Auscultation: normal bowel sounds General: Yes no CVA tenderness Back/Spine/Pelvis Back: no CVA tenderness Skin General skin exam: no rashes or lesions noted Neuro General: oriented to person and patient oriented x3 Cranial nerves: Yes CN's II-XII intact bilaterally Motor exam (neuro): 5/5 motor strength present throughout Extrem General: Yes normal to inspection Psych Appearance: grossly normal Course Reevaluation(s) Reevaluation #1: sill waiting on Ct results will sign out to Dr Munzo Time: 16:38 Medical Decision Making Differential Diagnosis Differential Diagnoses: The differential diagnosis associated with the presentation includes (diarrhea, abdominal pain, ulcerative colitis, ) Consult Healthcare Provider Management of the patient was discussed with: Merchandise Flow Team Leader (Dr. Khan of GI wants him to have oral and IV contrast) Lab Data MDM Lab Attestation statement: I reviewed the patient's lab results. 07/08/22 10:35 07/08/22 10:35 Labs: Lab Results 07/08/22 07/08/22 07/08/22 Range/Units 10:35 10:35 10:35 WBC 6.3 (4.8-10.8) X10*3/uL RBC 5.14 (4.60-5.80) X10*6/uL Hgb 15.2 (14.0-18.0) g/dl Hct 45.5 (42.0-52.0) % MCV 88.5 (80.0-98.0) fL MCH 29.6 (27.0-33.0) pg MCHC 33.4 (31.0-36.0) g/dl RDW 12.9 (11.0-16.0) % Plt Count 219 D (160-400) X10*3/uL MPV 9.9 (9.4-12.4) fL Immature Gran % (Auto) 0.3 (0.0-0.4) % Neut % (Auto) 66.4 (45-73) % Lymph % (Auto) 24.0 (20-40) % [place] % (Auto) 7.7 (2-11) % Eos % (Auto) 1.1 (0-4) % Baso % (Auto) 0.5 (0-2) % Lymph # (Auto) 1.5 (1.2-4.9) X10*3/uL [place] # (Auto) 0.5 (0.1-1.2) X10*3/uL Eos # (Auto) 0.1 (0.0-0.4) X10*3/uL Baso # (Auto) 0.0 (0.0-0.2) X10*3/uL Abs Immat Gran (auto) 0.02 (0.00-0.03) X10*3/uL Absolute Neuts (auto) 4.2 (2.0-8.3) x10*3/uL Absolute Nucleated RBC 0.000 (0.0-0.012) X10*3/uL Nucleated RBC % (auto) 0.0 (0.0-0.2) /100WBC Sodium 142 (135-145) mmol/L Potassium 4.7 (3.3-5.1) mmol/L Chloride 108 (96-108) mmol/L Carbon Dioxide 24 (22-29) mmol/L Anion Gap 15 (12-20) BUN 12 (9-16) mg/dL Creatinine 0.80 (0.5-1.4) mg/dL Estim Creat Clear Calc 178.6 Estimated GFR > 60 Random Glucose 64 (60-115) mg/dL Calcium 9.7 (8.4-10.2) mg/dL Total Bilirubin 0.8 (0.0-1.0) mg/dL AST 20 (5-37) U/L ALT 23 (0-40) U/L Alkaline Phosphatase 63 (39-117) U/L Total Protein 7.0 (6.5-8.0) g/dL Albumin 4.6 (3.5-5.0) g/dL Urine Color Yellow Urine Appearance Clear Urine pH 6.5 (5.0-9.0) Ur Specific [place] 1.020 (1.005-1.025) Urine Protein Negative (Neg-Trace) mg/dL Urine Glucose (UA) Negative (Negative) mg/dL Urine Ketones Negative (Negative) mg/dL Urine Blood Negative (Negative) Urine Nitrite Negative (Negative) Ur Leukocyte Esterase Negative (Negative) Chronic Conditions Patient?s care impacted by: Other (Chrohn's ) Medications Administered Discontinued Medications Generic Name Dose Route Start Last Admin Trade Name Freq PRN Reason Stop Dose Admin Barium Sulfate 900 ml 07/08/22 14:28 07/08/22 14:28 Barium Sulfate Oral (Mocha) 450 Ml Oral.Susp PO 07/08/22 14:29 900 ml ONCE ONE Administration Sodium Chloride 500 mls @ 250 mls/hr 07/08/22 11:15 07/08/22 15:04 Ns IVCONT 07/08/22 13:14 Infused .Q2H GAGE Infusion Iohexol 85 ml 07/08/22 14:27 07/08/22 14:28 Iohexol 350 Mg/Ml 75 Ml Infus..Btl IV 07/08/22 14:28 85 ml ONCE ONE Administration Discharge Plan Discharge Clinical Impression: Abdominal pain Patient Disposition: Still a Patient Prescriptions: No Action Coricidin HBP Cough and Cold 4-30 mg tablet 1 tab PO Q6H PRN (Reason: cough) Qty: 30 1RF clonidine HCl 0.1 mg tablet 0.1 mg PO TID Qty: 270 1RF Entyvio 300 mg recon soln 300 mg IV Q2W 56 Days Qty: 1 8RF Rx Instructions: Infuse 300mg IV at week 0, 2, 6, then every 8 weeks maintainence dose cyclobenzaprine 10 mg tablet 10 mg PO BID PRN (Reason: muscle spasm) Qty: 10 0RF multivitamin Tablet 1 tab PO DAILY atomoxetine 25 mg capsule 1 cap PO QAM dicyclomine 20 mg tablet 20 mg PO QID PRN (Reason: abdominal pain) Qty: 20 0RF sumatriptan succinate 25 mg tablet See Rx Instructions .ROUTE .COMPLEX Qty: 7 0RF Rx Instructions: take 1 tab at onset of headache; if no relief may repeat 1 tab after at least 2 hrs; max = 4 tabs/24 hr neomycin-polymyxin B-dexameth [Maxitrol] 3.5mg/mL-10,000 unit/mL-0.1 % drops,suspension 1 drp ophthalmic (eye) Q8H Qty: 5 0RF Rx Instructions: One drop in each ear 3 times a day for 5 days pantoprazole 40 mg tablet,delayed release (DR/EC) 40 mg PO DAILY Qty: 60 2RF (DME) Blood Pressure Cuff Misc See Rx Instructions .ROUTE .MEDSUPPLY Qty: 1 0RF Rx Instructions: blood pressure checks daily and as needed large cuff please omeprazole 20 mg capsule,delayed release(DR/EC) 20 mg PO DAILY 14 Days Qty: 14 0RF oxycodone 5 mg tablet 5 mg PO Q8H PRN (Reason: pain) Qty: 6 0RF Rx Instructions: Partial Fill upon patient request. sucralfate [Carafate] 100 mg/mL suspension 10 ml PO TID 30 Days Qty: 900 5RF lidocaine 4 % cream 1 appl topical QID PRN (Reason: pain) Qty: 50 4RF budesonide 3 mg capsule,delayed,extend.release 9 mg PO DAILY 30 Days Qty: 90 1RF Rx Instructions: open capsules and mix with apple sauce peg-electrolyte soln 420 gram recon soln 240 ml PO Q10M Qty: 4000 0RF Rx Instructions: until fecal effluent is clear; do not exceed a total volume of 2,000 mL
[2022-07-08 10:59] LABS: Alanine Aminotransferase 23 U/L (0-40); Albumin Level 4.6 g/dL (3.5-5.0); Alkaline Phosphatase 63 U/L (39-117); Anion Gap 15 (12-20); Aspartate Amino Transferase 20 U/L (5-37); Bilirubin Total 0.8 mg/dL (0.0-1.0); Blood Urea Nitrogen 12 mg/dL (9-16); Calcium 9.7 mg/dL (8.4-10.2); Carbon Dioxide 24 mmol/L (22-29); Chloride 108 mmol/L (96-108); Creatinine Clr Calc Pharmacy 178.6; Estimated Glomerular Filt Rate > 60; Glucose Random 64 mg/dL (60-115); Potassium 4.7 mmol/L (3.3-5.1); Sodium 142 mmol/L (135-145)
[2022-07-08] MEDS: 0.9 % Sodium Chloride 500 ML 250 ML IVCONT (11:31)
[2022-07-08 13:40] VITALS: BP 131/71; PULSE 56; RESP 16; TEMP 37.3; O2SAT 100
--- NOTE | 2022-07-08 13:42 | PC.NURSE ---
Pt awaiting CT scan, fluids infusing at this time. Offers no complaints, vss, call juárez within reach. Continues to have diarrhea and reporting 4/10 abd pain.
[2022-07-08] MEDS: iohexoL 350 MG/ML 75 ML INFUS..BTL 85 ML IV (14:28)
[2022-07-08] MEDS: Barium Sulfate Oral (Mocha) 450 ML ORAL.SUSP 900 ML PO (14:28)
[2022-07-08 16:12] VITALS: BP 122/72; PULSE 53; RESP 16; TEMP 36.8; O2SAT 100
== END 2022-07-08 19:24 | disposition home or self-care (01) ==
PROVIDERS: Emergency Medicine; Emergency Provider Emergency Medicine Emergency Medical Services; PCP Hospitalist
DX: R10.13 Epigastric pain (principal); R14.0 Abdominal distension (gaseous); R19.7 Diarrhea, unspecified; Z87.891 Personal history of nicotine dependence; Z79.899 Other long term (current) drug therapy
CPT/HCPCS: 36415; 74177; 80053; 81003; 85025; 96360; 96361; 99285; Q9967

== ENCOUNTER 2022-07-15 15:44 | Emergency (ER) | payer OTHER, SELFPAY ==
--- NOTE | ~2022-07-15 | CT_ITS ---
EXAMINATION: NONCONTRAST HEAD CT NONCONTRAST MAXILLOFACIAL CT INDICATION INFORMATION: Dizziness. Headache. Facial trauma. Nasal trauma. COMPARISON: None TECHNIQUE: Separate noncontrast CT examinations of the head and maxillofacial bones were performed. Coronal and sagittal images were created for each examination at the technologist workstation. This CT examination was performed using dose optimization techniques as appropriate, variously including the following: *Automated exposure control *Adjustment of mA and/or kV according to patient size (this includes techniques or standardized protocols for targeted exams where dose is matched to indication/reason for exam; i.e. extremities or head) *Use of iterative reconstruction technique DLP: 1467 mGy-cm FINDINGS: Head: There is no evidence of acute intracranial hemorrhage or territorial infarction. No abnormal mass effect or midline shift is seen. Amezquita to white matter differentiation is well preserved. No extra-axial fluid collections are identified. No hydrocephalus. No significant volume loss. There is no abnormal attenuation within the brain parenchyma. No acute soft tissue abnormality. No calvarial fracture. The mastoid air cells are well aerated. Maxillofacial: There is a subtly depressed fracture of the nasal bone at the left aspect. No additional maxillofacial fracture. The pterygoid plates are intact. The lamina papyracea are intact. The zygomatic arches are intact. The orbital rims are intact. The mandible is intact. Retention cysts are seen in both maxillary sinuses. The remaining paranasal sinuses appear well-aerated. The uncinate process is normal bilaterally. The infundibula and middle meati are patent. The nasal septum is midline. The mandibular heads are well-seated in the condylar fossa. The orbits demonstrate a normal appearance bilaterally. The globes are intact, and there are no suspicious findings to suggest retrobulbar hemorrhage. CT/CT facial bones wo IV con IMPRESSION: 1. No acute intracranial finding. 2. Minimally depressed nasal bone fracture.
[2022-07-15 16:43] VITALS: BP 146/83; PULSE 80; RESP 18; TEMP 36.7; O2SAT 100; BMI 28.7
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
[2022-07-15 18:00] VITALS: BP 137/62; PULSE 71; RESP 18; TEMP 36.9; O2SAT 100
== END 2022-07-15 18:34 | disposition home or self-care (01) ==
PROVIDERS: Emergency Provider Emergency Medicine; PCP Hospitalist
DX: S02.2XXA Fracture of nasal bones, initial encounter for closed fracture (principal); W50.0XXA Accidental hit or strike by another person, initial encounter; R04.0 Epistaxis; Y93.67 Activity, basketball; Y92.310 Basketball court as the place of occurrence of the external cause; Y99.9 Unspecified external cause status
CPT/HCPCS: 70450; 70486; 99283; 99284

== ENCOUNTER 2022-07-16 12:08 | Emergency (ER) | payer OTHER, SELFPAY ==
--- NOTE | ~2022-07-16 | XR_ITS ---
EXAMINATION: XR KNEE, RIGHT CLINICAL INFORMATION: Right knee pain status post injury. COMPARISON: None available. TECHNIQUE: Four views of the right knee. FINDINGS: Ickk-ky-owdtqmjn tricompartmental degenerative joint changes are seen. There is no acute fracture or dislocation. No significant joint effusion. The soft tissues are unremarkable. XR/XR knee RT 4V IMPRESSION: Wsxo-gu-[id number] tricompartmental degenerative joint changes. No acute fracture.
[2022-07-16 12:38] VITALS: BP 132/72; PULSE 69; RESP 18; TEMP 36.6; O2SAT 98; BMI 29.5
--- NOTE | 2022-07-16 12:50 | ED_ITS ---
HPI - Extremity Injury (Lower) General Chief Complaint: Extremity Injury, Lower Stated Complaint: r knee inj Time Seen by Provider: 07/16/22 13:21 Source: patient Mode of arrival: ambulatory Limitations: no limitations History of Present Illness HPI Narrative: 27 yo male presents to the ER for evaluation of right knee pain after he had a basketball injury last night. He states he collided with another player and they hit knees. He has had some mild swelling and pain with ambulation since. He denies any other associated injuries. He was seen here yesterday for a broken nose during a basketball injury. MD complaint: knee injury Onset (ago): day(s) (1) Type of Injury: blunt Place: street/outdoors Severity: moderate Severity scale (1-10): 5 Relieving factors: immobilization and rest Exacerbating factors: weight bearing, movement and palpation Context: direct blow Associated symptoms: swelling and ambulatory Other symptoms: none Related Data Home Medications Medication Instructions Recorded Confirmed multivitamin 1 tab PO DAILY 02/25/21 05/06/22 atomoxetine 25 mg capsule 1 cap PO QAM 08/13/21 05/06/22 Previous Rx's Medication Instructions Recorded cyclobenzaprine 10 mg tablet 10 mg PO BID PRN muscle spasm #10 10/30/20 tabs miscellaneous medical supply #1 ea 06/04/21 (Blood Pressure Cuff) budesonide 3 mg 9 mg PO DAILY 30 days #90 ea 06/16/21 capsule,delayed,extended release chlorpheniramine-dextromethorphan 1 tab PO Q6H PRN cough #30 tabs 08/19/21 4 mg-30 mg tablet (Coricidin HBP Cough and Cold) ibxdzlow-wwrfcseeh-skeahpoh 3.5 1 drp ophthalmic (eye) Q8H #5 mL 10/06/21 mg/mL-10,000 unit/mL-0.1% eye drops (Maxitrol) omeprazole 20 mg capsule,delayed 20 mg PO DAILY 14 days #14 caps 12/08/21 release clonidine HCl 0.1 mg tablet 0.1 mg PO TID #270 tabs 12/17/21 oxycodone 5 mg tablet 5 mg PO Q8H PRN pain #6 tabs 12/17/21 peg-electrolyte solution 420 gram 240 ml PO Q10M #4,000 mL 12/29/21 oral solution lidocaine 4 % topical cream 1 appl topical QID PRN pain #50 01/14/22 grams sucralfate 100 mg/mL oral 10 ml PO TID 1 month #900 mL 01/14/22 suspension (Carafate) dicyclomine 20 mg tablet 20 mg PO QID PRN abdominal pain 05/07/22 #20 tabs vedolizumab 300 mg intravenous 300 mg IV Q2W 8 weeks #1 ea 05/09/22 solution (Entyvio) pantoprazole 40 mg tablet,delayed 40 mg PO DAILY #60 tabs 05/12/22 release sumatriptan succinate 25 mg tablet See Rx Instructions PO .COMPLEX #7 06/06/22 tabs ibuprofen 600 mg tablet 600 mg PO Q8H PRN pain #14 tabs 07/16/22 Allergies Allergy/AdvReac Type Severity Reaction Status Date / Time penicillin V Allergy Intermediate rash Verified 07/16/22 14:35 Review of Systems Review of Systems: Yes all other systems are reviewed and are negative [facility] Past Medical History Medical History Acquired genu valgum of both knees Acute Crohn's disease ADHD (attention deficit hyperactivity disorder) Arthritis Depression Eczema Scoliosis Spondylosis of lumbosacral spine without myelopathy Surgical History History of arthroscopy of both knees History of esophagogastroduodenoscopy (EGD) Hx of colonoscopy Family History Family History Father No problems noted. Mother Hypertension Maternal Grandfather Diabetes Stroke Other Anemia Social History Social History Household Members: Friend(s) Housing: Apartment Do you presently have visiting nurse or other home services: No Alcohol intake: never Patient Tobacco Use Status: Former Tobacco user Smoked in Last 30 Days: No e-Cigarette/Vaping Use: Never Used Second Hand Smoke Exposure: No Use of substances other than those prescribed or required for medical reasons: No Advance Directives: No service: No Current occupational status: employed Cognitive needs: No Hearing needs: No Vision needs: No Physical Exam Vital Signs: Vital Signs: Last Vital Signs Temp 98 F 07/16/22 12:38 Pulse 69 07/16/22 12:38 Resp 18 07/16/22 14:37 BP 132/72 07/16/22 12:38 Pulse Ox 98 07/16/22 14:37 O2 Del Method Room Air 07/16/22 14:37 BMI result Body Mass Index 29.5 Appearance: Alert. Oriented X3. No acute distress. HEENT: normal inspection CVS: Normal heart rate and rhythm. Pulses normal. Respiratory: No respiratory distress. Skin: Skin warm and dry. Normal skin color. Normal skin turgor. No rashes. Extremities: mild generalized swelling of the right knee, ecchymosis medially. Pain with flexion passt 90 degress, normal extension. no joint laxiety appreciated. pain with varus and valgus stress Neuro: Oriented X 3. No motor deficit. No sensory deficit. Steady Course Course Course Narrative: RME - 27 y/o male presenting for evaluation of right knee pain after a basketball injury last night. Collided with another player. He is ambulating on it ok but having some pain Plan: XR knee Medical Decision Making Medical Decision Making [facility] Narrative: 27 yo male presenting with right knee pain s/p basketball blunt injury. he is ambulatory. xr with degenerative changes, no fracture or effusion most likely a contusion. will give CARMELO, crutches and refer to Ortho Differential Diagnosis Differential Diagnoses: The differential diagnosis associated with the presentation includes knee sprain, knee strain, contusion, knee effusion, ligament or meniscus injury Independent Interpretation I performed an independent interpretation of an: Plain X-Ray Interpretation: no effusion or fracture noted. Radiology Impression Discussion of test interpretation with radiology: I have reviewed the radiologist's reading. Radiologist Impression: CLINICAL INFORMATION: Right knee pain status post injury.? COMPARISON: None available.? TECHNIQUE: Four views of the right knee. FINDINGS: Uxqn-jf-ezjoolpu tricompartmental degenerative joint changes are seen. There is no acute fracture or dislocation. No significant joint effusion. The soft tissues are unremarkable.? XR/XR knee RT 4V IMPRESSION: Sbgk-me-mdixhevp tricompartmental degenerative joint changes. No acute fracture. External Record Review External record reviewed: Outpatient record Prescription Management I considered prescription management with: Pain Medication Critical Care Time Critical Care Time Critical Care Time: No Discharge Plan Discharge Clinical Impression: Contusion of knee Patient Disposition: Home, Self-Care Instructions: Contusion in Adults (ED), Knee Pain (ED) Additional Instructions: Your x-ray today showed degnerative changes but no broken bones or fluid on the knee. Rest your knee and elevate your leg when possible. Recommend CARMELO wrap for support and compression. Use ice several times per day for the next 48 hours. You may bear weight as tolerated. If pain is too severe, use crutches until better. Take Motrin and/or Tylenol as needed for pain. Follow up with your doctor as needed. XR/XR knee RT 4V IMPRESSION: Mjjm-ii-ispdvhso tricompartmental degenerative joint changes. No acute fracture. Prescriptions: New ibuprofen 600 mg tablet 600 mg PO Q8H PRN (Reason: pain) Qty: 14 0RF No Action Coricidin HBP Cough and Cold 4-30 mg tablet 1 tab PO Q6H PRN (Reason: cough) Qty: 30 1RF clonidine HCl 0.1 mg tablet 0.1 mg PO TID Qty: 270 1RF Entyvio 300 mg recon soln 300 mg IV Q2W 56 Days Qty: 1 8RF Rx Instructions: Infuse 300mg IV at week 0, 2, 6, then every 8 weeks maintainence dose cyclobenzaprine 10 mg tablet 10 mg PO BID PRN (Reason: muscle spasm) Qty: 10 0RF multivitamin Tablet 1 tab PO DAILY atomoxetine 25 mg capsule 1 cap PO QAM dicyclomine 20 mg tablet 20 mg PO QID PRN (Reason: abdominal pain) Qty: 20 0RF sumatriptan succinate 25 mg tablet See Rx Instructions .ROUTE .COMPLEX Qty: 7 0RF Rx Instructions: take 1 tab at onset of headache; if no relief may repeat 1 tab after at least 2 hrs; max = 4 tabs/24 hr neomycin-polymyxin B-dexameth [Maxitrol] 3.5mg/mL-10,000 unit/mL-0.1 % drops,suspension 1 drp ophthalmic (eye) Q8H Qty: 5 0RF Rx Instructions: One drop in each ear 3 times a day for 5 days pantoprazole 40 mg tablet,delayed release (DR/EC) 40 mg PO DAILY Qty: 60 2RF (DME) Blood Pressure Cuff Misc See Rx Instructions .ROUTE .MEDSUPPLY Qty: 1 0RF Rx Instructions: blood pressure checks daily and as needed large cuff please omeprazole 20 mg capsule,delayed release(DR/EC) 20 mg PO DAILY 14 Days Qty: 14 0RF oxycodone 5 mg tablet 5 mg PO Q8H PRN (Reason: pain) Qty: 6 0RF Rx Instructions: Partial Fill upon patient request. sucralfate [Carafate] 100 mg/mL suspension 10 ml PO TID 30 Days Qty: 900 5RF lidocaine 4 % cream 1 appl topical QID PRN (Reason: pain) Qty: 50 4RF budesonide 3 mg capsule,delayed,extend.release 9 mg PO DAILY 30 Days Qty: 90 1RF Rx Instructions: open capsules and mix with apple sauce peg-electrolyte soln 420 gram recon soln 240 ml PO Q10M Qty: 4000 0RF Rx Instructions: until fecal effluent is clear; do not exceed a total volume of 2,000 mL Referrals: [facility] [place] Orthopedic Surgeons [Provider Group] Shakira Higgins NP [Primary Care Provider] - Stand Alone Forms: Work/School Release Interventions: ED Discharge Assessment Last Done: 07/16/22 14:41 Discharge Date/Time: 07/16/22 14:43
[2022-07-16 14:37] VITALS: RESP 18; O2SAT 98
== END 2022-07-16 14:43 | disposition home or self-care (01) ==
PROVIDERS: Emergency Provider Student in an Organized Health Care Education/Training Program; PCP Hospitalist
DX: S80.01XA Contusion of right knee, initial encounter (principal); M25.561 Pain in right knee; Y93.67 Activity, basketball; Y93.9 Activity, unspecified; Y92.310 Basketball court as the place of occurrence of the external cause; Y99.9 Unspecified external cause status; Z87.891 Personal history of nicotine dependence; Z79.899 Other long term (current) drug therapy
CPT/HCPCS: 73564; 99283; 99284

== ENCOUNTER 2022-07-20 06:59 | Outpatient (REF) | payer OTHER, SELFPAY | END 2022-07-20 07:00 | disposition home or self-care (01) | LOC: HO.MDS 06:59 | PROVIDERS: Visit Provider Internal Medicine Gastroenterology | DX: K50.90 Crohn's disease, unspecified, without complications (principal) | CPT/HCPCS: 96365; J3380 ==

== ENCOUNTER 2022-07-24 10:25 | Outpatient (REF) | payer OTHER, SELFPAY ==
[2022-07-24 10:38] LABS: MANUAL DIFF FLAG NO
[2022-07-24 12:07] LABS: Basophils Percent Auto 0.6 % (0-2); Eosinophils Absolute Auto 0.1 X10*3/uL (0.0-0.4); Eosinophils Percent Auto 1.8 % (0-4); Hematocrit 46.1 % (42.0-52.0); Hemoglobin 15.1 g/dl (14.0-18.0); Imm Gran Abs Auto 0.01 X10*3/uL (0.00-0.03); Imm Gran Pct Auto 0.2 % (0.0-0.4); Lymphocytes Absolute Auto 1.7 X10*3/uL (1.2-4.9); Lymphocytes Percent Auto 34.2 % (20-40); Mean Corpuscular HGB Conc 32.8 g/dl (31.0-36.0); Mean Corpuscular Hemoglobin 29.3 pg (27.0-33.0); Mean Corpuscular Volume 89.3 fL (80.0-98.0); Mean Platelet Volume 10.5 fL (9.4-12.4); Monocytes Absolute Auto 0.5 X10*3/uL (0.1-1.2); Monocytes Percent Auto 9.5 % (2-11); Neutrophils Absolute Auto 2.7 x10*3/uL (2.0-8.3); Neutrophils Percent Auto 53.7 % (45-73); Platelet Count 252 X10*3/uL (160-400); Red Blood Count 5.16 X10*6/uL (4.60-5.80); Red Cell Distribution Width 13.2 % (11.0-16.0); White Blood Count 5.1 X10*3/uL (4.8-10.8)
[2022-07-24 12:39] LABS: Erythrocyte Sedimentation Rate 1 MM/HR (0-15)
[2022-07-24 13:30] LABS: Alanine Aminotransferase 21 U/L (0-40); Albumin Level 4.7 g/dL (3.5-5.0); Alkaline Phosphatase 64 U/L (39-117); Anion Gap 13 (12-20); Aspartate Amino Transferase 18 U/L (5-37); Bilirubin Total 0.7 mg/dL (0.0-1.0); Blood Urea Nitrogen 12 mg/dL (9-16); C Reactive Protein < 0.10 mg/dL (< or = 0.50); Calcium 9.4 mg/dL (8.4-10.2); Carbon Dioxide 25 mmol/L (22-29); Chloride 107 mmol/L (96-108); Estimated Glomerular Filt Rate > 60; Glucose Random 82 mg/dL (60-115); Sodium 140 mmol/L (135-145); Total Protein 6.9 g/dL (6.5-8.0)
== END 2022-07-24 10:26 | disposition home or self-care (01) ==
LOC: HO.LAB 10:25
PROVIDERS: Visit Provider Internal Medicine Gastroenterology
DX: K75.81 Nonalcoholic steatohepatitis (NASH) (principal); R19.7 Diarrhea, unspecified
CPT/HCPCS: 36415; 80053; 85025; 85652; 86140

== ENCOUNTER 2022-08-01 08:17 | Emergency (ER) | payer OTHER, SELFPAY ==
[2022-08-01 08:26] VITALS: BP 139/80; PULSE 67; RESP 18; TEMP 37.2; O2SAT 98; BMI 28.7
--- NOTE | 2022-08-01 08:32 | PC.NURSE ---
pt alert, oriented. reporting diarrhea x3 this morning since 6am. mild nausea and abd pain.
--- NOTE | 2022-08-01 09:16 | ED_ITS ---
HPI - Abdominal Pain General Chief Complaint: Abdominal Pain Stated Complaint: fatigue, diarrhea Time Seen by Provider: 08/01/22 08:41 Source: patient Mode of arrival: ambulatory Limitations: no limitations History of Present Illness HPI narrative: 27-year-old male with a history of Crohn disease who presents emergency department for evaluation of 3 episodes of ?muddy diarrhea ?. He states that after the diarrhea he felt very fatigued. He also developed abdominal pain. He points to his epigastric and left lower abdomen when asked to localize the pain. The pain is a cramping like sensation which is mild to moderate intensity. Patient has had similar presentations in the past and he believes that secondary eating different foods. The patient has been seen multiple times in the past with similar presentations./to ER visit was on 06/29. He states that he often gets treated with IV fluids and pain medications and gets improvement. The patient is followed by our vein access technician, Dr. Khan. He is receiving Entyvio. Related Data Home Medications Medication Instructions Recorded Confirmed multivitamin 1 tab PO DAILY 02/25/21 05/06/22 atomoxetine 25 mg capsule 1 cap PO QAM 08/13/21 05/06/22 Previous Rx's Medication Instructions Recorded cyclobenzaprine 10 mg tablet 10 mg PO BID PRN muscle spasm #10 10/30/20 tabs miscellaneous medical supply #1 ea 06/04/21 (Blood Pressure Cuff) budesonide 3 mg 9 mg PO DAILY 30 days #90 ea 06/16/21 capsule,delayed,extended release chlorpheniramine-dextromethorphan 1 tab PO Q6H PRN cough #30 tabs 08/19/21 4 mg-30 mg tablet (Coricidin HBP Cough and Cold) afzsfxox-tzyyehwyq-onbvceyr 3.5 1 drp ophthalmic (eye) Q8H #5 mL 10/06/21 mg/mL-10,000 unit/mL-0.1% eye drops (Maxitrol) omeprazole 20 mg capsule,delayed 20 mg PO DAILY 14 days #14 caps 12/08/21 release clonidine HCl 0.1 mg tablet 0.1 mg PO TID #270 tabs 12/17/21 oxycodone 5 mg tablet 5 mg PO Q8H PRN pain #6 tabs 12/17/21 peg-electrolyte solution 420 gram 240 ml PO Q10M #4,000 mL 12/29/21 oral solution lidocaine 4 % topical cream 1 appl topical QID PRN pain #50 01/14/22 grams sucralfate 100 mg/mL oral 10 ml PO TID 1 month #900 mL 01/14/22 suspension (Carafate) dicyclomine 20 mg tablet 20 mg PO QID PRN abdominal pain 05/07/22 #20 tabs vedolizumab 300 mg intravenous 300 mg IV Q2W 8 weeks #1 ea 05/09/22 solution (Entyvio) pantoprazole 40 mg tablet,delayed 40 mg PO DAILY #60 tabs 05/12/22 release sumatriptan succinate 25 mg tablet See Rx Instructions PO .COMPLEX #7 06/06/22 tabs ibuprofen 600 mg tablet 600 mg PO Q8H PRN pain #14 tabs 07/16/22 Allergies Allergy/AdvReac Type Severity Reaction Status Date / Time penicillin V Allergy Intermediate rash Verified 07/16/22 14:35 Review of Systems Review of Systems Yes all other systems are reviewed and are negative [facility] Past Medical History [facility] Narrative: Social history: He denies tobacco, alcohol and drug use. Medical History Acquired genu valgum of both knees Acute Crohn's disease ADHD (attention deficit hyperactivity disorder) Arthritis Depression Eczema Scoliosis Spondylosis of lumbosacral spine without myelopathy Surgical History History of arthroscopy of both knees History of esophagogastroduodenoscopy (EGD) Hx of colonoscopy Family History Family History Father No problems noted. Mother Hypertension Maternal Grandfather Diabetes Stroke Other Anemia Social History Social History Household Members: Friend(s) Housing: Apartment Do you presently have visiting nurse or other home services: No Alcohol intake: never Patient Tobacco Use Status: Former Tobacco user Smoked in Last 30 Days: No e-Cigarette/Vaping Use: Never Used Second Hand Smoke Exposure: No Use of substances other than those prescribed or required for medical reasons: No Advance Directives: No service: No Current occupational status: employed Cognitive needs: No Hearing needs: No Vision needs: No Physical Exam ED Vital Signs: Vital Signs - 24 hr 08/01/22 08:26 08/01/22 09:40 Temperature 98.9 F Pulse Rate 67 56 Respiratory Rate 18 18 Blood Pressure 139/80 132/78 Pulse Oximetry 98 98 Oxygen Delivery Method Room Air Room Air BMI result Body Mass Index 28.7 Const General: cooperative and no acute distress Orientation/consciousness: oriented to person and oriented to place Limitations: no limitations HENMT Head: Yes normal to inspection, Yes normocephalic and Yes atraumatic Ears: external ears normal General nose exam: Normal external nose present Face and sinus: Yes normal facial exam Mouth: Normal oral and palatal mucosa present Throat: Yes posterior oropharynx normal Eyes General: appearance normal, both eyes and all related structures Pupils: Equal, round and reactive pupils present Neck Neck: Yes normal visual inspection, Yes no lymphadenopathy, Yes trachea midline and Yes supple Chest Chest palpation & inspection: normal inspection of the chest and normal palpation of entire chest wall Resp Effort & Inspection: normal respiratory effort and able to speak in complete sentences Auscultation: clear to auscultation bilaterally Cardio Rate: regular rate Rhythm: regular rhythm Heart sounds: S1 normal heart sound present, S2 normal heart sound present and no murmurs GI Inspection: Yes normal to inspection Palpation (GI): Soft to palpation, Tenderness to palpation present (GI) (Moderate epigastric tenderness, mild to moderate left lower quadrant tender) and no guarding Auscultation: normal bowel sounds General: Yes no CVA tenderness Back/Spine/Pelvis Back: no CVA tenderness Skin General skin exam: no rashes or lesions noted Neuro General: oriented to person and oriented to place Cranial nerves: Yes CN's II-XII intact bilaterally and Yes Equal, round and reactive pupils present Cognition (Neuro): normal cognition Motor exam (neuro): 5/5 motor strength present throughout Extrem General: Yes normal to inspection Psych Appearance: grossly normal Speech and movement: Normal speech and movement present Affect: normal affect Attitude: cooperative Thought process: Normal thought process present Thought content: Normal thought content present Medical Decision Making Medical Decision Making MDM Narrative: 27-year-old male with history of Crohn disease presents emergency department for evaluation of 3 muddy stools , fatigue and abdominal pain. Patient has had similar presentations in the past. Patient's vital signs were normal. Physical examination did reveal epigastric and left-sided abdominal tenderness. I ordere d a CBC, CMP, ESR, CRP. Patient will be treated with normal saline IV x1 L and Toradol 15 mg IV. 1122: My interpretation patient's laboratory evaluation is as follows: CBC was normal. CMP was normal. Lipase was negative. ESR and CRP were not elevated. The patient's pain has improved but is not resolved completely after receiving the IV Toradol. He does not want any more pain medications. He states he still feels fatigued and that he believes a 2 L of fluid will make it feel better therefore I ordered normal saline times 1 more L. the patient will then be discharged home. He is advised follow-up with his PCP or his vein access technician for re-evaluation. Differential Diagnosis Differential diagnosis includes but is not limited to Crohn's disease flare up, viral syndrome, infectious diarrhea, dehydration Admission/Observation Consideration of admission/observation: Escalation of care including admission/observation considered Lab Data [facility] Lab Attestation statement: I reviewed the patient's lab results. See [facility] 08/01/22 09:33 08/01/22 09:33 Labs: Lab Results 08/01/22 08/01/22 08/01/22 Range/Units 09:33 09:33 09:33 WBC 6.1 (4.8-10.8) X10*3/uL RBC 5.21 (4.60-5.80) X10*6/uL Hgb 15.4 (14.0-18.0) g/dl Hct 46.1 (42.0-52.0) % MCV 88.5 (80.0-98.0) fL MCH 29.6 (27.0-33.0) pg MCHC 33.4 (31.0-36.0) g/dl RDW 13.2 (11.0-16.0) % Plt Count 225 (160-400) X10*3/uL MPV 9.8 (9.4-12.4) fL Immature Gran % (Auto) 0.2 (0.0-0.4) % Neut % (Auto) 71.8 (45-73) % Lymph % (Auto) 17.9 L (20-40) % Atlantic % (Auto) 9.0 (2-11) % Eos % (Auto) 0.8 (0-4) % Baso % (Auto) 0.3 (0-2) % Lymph # (Auto) 1.1 L (1.2-4.9) X10*3/uL Atlantic # (Auto) 0.6 (0.1-1.2) X10*3/uL Eos # (Auto) 0.1 (0.0-0.4) X10*3/uL Baso # (Auto) 0.0 (0.0-0.2) X10*3/uL Abs Immat Gran (auto) 0.01 (0.00-0.03) X10*3/uL Absolute Neuts (auto) 4.4 (2.0-8.3) x10*3/uL Absolute Nucleated RBC 0.000 (0.0-0.012) X10*3/uL Nucleated RBC % (auto) 0.0 (0.0-0.2) /100WBC ESR 2 (0-15) MM/HR Sodium 141 (135-145) mmol/L Potassium 4.8 (3.3-5.1) mmol/L Chloride 106 (96-108) mmol/L Carbon Dioxide 26 (22-29) mmol/L Anion Gap 14 (12-20) BUN 18 H (9-16) mg/dL Creatinine 0.79 (0.5-1.4) mg/dL Estim Creat Clear Calc 183.6 Estimated GFR > 60 Random Glucose 91 (60-115) mg/dL Calcium 9.4 (8.4-10.2) mg/dL Total Bilirubin 0.7 (0.0-1.0) mg/dL AST 21 (5-37) U/L ALT 22 (0-40) U/L Alkaline Phosphatase 63 (39-117) U/L C-Reactive Protein < 0.10 (< or = 0.50) mg/dL Total Protein 7.3 (6.5-8.0) g/dL Albumin 4.9 (3.5-5.0) g/dL Lipase 22 (8-78) U/L Medications Administered Discontinued Medications Generic Name Dose Route Start Last Admin Trade Name Freq PRN Reason Stop Dose Admin Sodium Chloride 1,000 mls @ 999 mls/hr 08/01/22 09:15 08/01/22 10:37 Ns IV 08/01/22 10:15 Infused .Q1H1M STA Infusion Ketorolac Tromethamine 15 mg 08/01/22 09:15 08/01/22 09:38 Ketorolac Tromethamine 15 Mg/Ml Vial IVPUSH 08/01/22 09:16 15 mg ONCE STA Administration Discharge Plan Discharge Clinical Impression: Abdominal pain, Diarrhea, Acute dehydration Patient Disposition: Home, Self-Care Additional Instructions: Your complete blood count and comprehensive metabolic panels were normal. Your inflammatory markers (ESR and CRP) were normal as well. This is reassuring and suggests that you do not have a flare-up of your Crohn disease is the cause of your symptoms. Continue medications as prescribed by your providers. Increase your fluid intake over the next 24 hours. Follow-up with your doctor in 2 days. Please return to the emergency department if your symptoms get worse or if you develop any symptoms that are concerning to you. Prescriptions: No Action Coricidin HBP Cough and Cold 4-30 mg tablet 1 tab PO Q6H PRN (Reason: cough) Qty: 30 1RF clonidine HCl 0.1 mg tablet 0.1 mg PO TID Qty: 270 1RF Entyvio 300 mg recon soln 300 mg IV Q2W 56 Days Qty: 1 8RF Rx Instructions: Infuse 300mg IV at week 0, 2, 6, then every 8 weeks maintainence dose cyclobenzaprine 10 mg tablet 10 mg PO BID PRN (Reason: muscle spasm) Qty: 10 0RF multivitamin Tablet 1 tab PO DAILY atomoxetine 25 mg capsule 1 cap PO QAM dicyclomine 20 mg tablet 20 mg PO QID PRN (Reason: abdominal pain) Qty: 20 0RF sumatriptan succinate 25 mg tablet See Rx Instructions .ROUTE .COMPLEX Qty: 7 0RF Rx Instructions: take 1 tab at onset of headache; if no relief may repeat 1 tab after at least 2 hrs; max = 4 tabs/24 hr neomycin-polymyxin B-dexameth [Maxitrol] 3.5mg/mL-10,000 unit/mL-0.1 % drops,suspension 1 drp ophthalmic (eye) Q8H Qty: 5 0RF Rx Instructions: One drop in each ear 3 times a day for 5 days pantoprazole 40 mg tablet,delayed release (DR/EC) 40 mg PO DAILY Qty: 60 2RF ibuprofen 600 mg tablet 600 mg PO Q8H PRN (Reason: pain) Qty: 14 0RF (DME) Blood Pressure Cuff Misc See Rx Instructions .ROUTE .MEDSUPPLY Qty: 1 0RF Rx Instructions: blood pressure checks daily and as needed large cuff please omeprazole 20 mg capsule,delayed release(DR/EC) 20 mg PO DAILY 14 Days Qty: 14 0RF oxycodone 5 mg tablet 5 mg PO Q8H PRN (Reason: pain) Qty: 6 0RF Rx Instructions: Partial Fill upon patient request. sucralfate [Carafate] 100 mg/mL suspension 10 ml PO TID 30 Days Qty: 900 5RF lidocaine 4 % cream 1 appl topical QID PRN (Reason: pain) Qty: 50 4RF budesonide 3 mg capsule,delayed,extend.release 9 mg PO DAILY 30 Days Qty: 90 1RF Rx Instructions: open capsules and mix with apple sauce peg-electrolyte soln 420 gram recon soln 240 ml PO Q10M Qty: 4000 0RF Rx Instructions: until fecal effluent is clear; do not exceed a total volume of 2,000 mL
[2022-08-01] MEDS: 0.9 % Sodium Chloride 1,000 ML 999 ML IV ×2 (09:35→11:26)
[2022-08-01 09:38] LABS: MANUAL DIFF FLAG NO
[2022-08-01] MEDS: Ketorolac Tromethamine 15 MG/ML VIAL IVPUSH (09:38)
[2022-08-01 09:40] VITALS: BP 132/78; PULSE 56; RESP 18; O2SAT 98
[2022-08-01 09:41] LABS: Basophils Percent Auto 0.3 % (0-2); Eosinophils Absolute Auto 0.1 X10*3/uL (0.0-0.4); Eosinophils Percent Auto 0.8 % (0-4); Hematocrit 46.1 % (42.0-52.0); Hemoglobin 15.4 g/dl (14.0-18.0); Imm Gran Abs Auto 0.01 X10*3/uL (0.00-0.03); Imm Gran Pct Auto 0.2 % (0.0-0.4); Lymphocytes Absolute Auto 1.1 X10*3/uL (1.2-4.9); Lymphocytes Percent Auto 17.9 % (20-40); Mean Corpuscular HGB Conc 33.4 g/dl (31.0-36.0); Mean Corpuscular Hemoglobin 29.6 pg (27.0-33.0); Mean Corpuscular Volume 88.5 fL (80.0-98.0); Mean Platelet Volume 9.8 fL (9.4-12.4); Monocytes Absolute Auto 0.6 X10*3/uL (0.1-1.2); Neutrophils Absolute Auto 4.4 x10*3/uL (2.0-8.3); Neutrophils Percent Auto 71.8 % (45-73); Platelet Count 225 X10*3/uL (160-400); Red Blood Count 5.21 X10*6/uL (4.60-5.80); Red Cell Distribution Width 13.2 % (11.0-16.0); White Blood Count 6.1 X10*3/uL (4.8-10.8)
[2022-08-01 09:53] LABS: Alanine Aminotransferase 22 U/L (0-40); Albumin Level 4.9 g/dL (3.5-5.0); Alkaline Phosphatase 63 U/L (39-117); Anion Gap 14 (12-20); Aspartate Amino Transferase 21 U/L (5-37); Bilirubin Total 0.7 mg/dL (0.0-1.0); Blood Urea Nitrogen 18 mg/dL (9-16); C Reactive Protein < 0.10 mg/dL (< or = 0.50); Calcium 9.4 mg/dL (8.4-10.2); Carbon Dioxide 26 mmol/L (22-29); Chloride 106 mmol/L (96-108); Creatinine Clr Calc Pharmacy 183.6; Estimated Glomerular Filt Rate > 60; Glucose Random 91 mg/dL (60-115); Lipase 22 U/L (8-78); Potassium 4.8 mmol/L (3.3-5.1); Sodium 141 mmol/L (135-145); Total Protein 7.3 g/dL (6.5-8.0)
[2022-08-01 11:01] LABS: Erythrocyte Sedimentation Rate 2 MM/HR (0-15)
--- NOTE | 2022-08-01 11:13 | PC.NURSE ---
pt reports continued pain in abdomen, though mild. Pt chief concern is the fatigue he is feeling
[2022-08-01 12:00] VITALS: BP 143/83; PULSE 57; RESP 20; TEMP 36.8; O2SAT 100
== END 2022-08-01 13:04 | disposition home or self-care (01) ==
PROVIDERS: Emergency Provider Emergency Medicine Emergency Medical Services; PCP Hospitalist
DX: R19.7 Diarrhea, unspecified (principal); R10.9 Unspecified abdominal pain; E86.0 Dehydration; Z79.899 Other long term (current) drug therapy
CPT/HCPCS: 36415; 80053; 83690; 85025; 85652; 86140; 96361; 96374; 99284; 99285; J1885

== ENCOUNTER 2022-08-05 09:01 | Outpatient (REF) | payer OTHER, SELFPAY ==
--- NOTE | ~2022-08-05 | XR_ITS ---
EXAMINATION: XR KNEE AP STANDING CLINICAL INFORMATION: Right knee pain. COMPARISON: 07/16/2022 and studies dating back to 12/01/2016. TECHNIQUE: AP bilateral standing view of the knees was obtained. FINDINGS: AP standing views of the knees demonstrate some mild marginal spurring affecting the lateral joint space compartments more than the medial joint space compartments bilaterally. The medial and lateral joint space compartments appear maintained. Bony density is seen overlying the tibial spines, likely representing spurs. There is again noted to be a low-density region with central sclerotic area, which may be related to enchondroma, about the metaphyseal diaphyseal region of the left distal femur. This appears unchanged. XR/XR knee standing BI IMPRESSION: 1. Mild degenerative change as described above as well as spurring of both tibial spines. 2. Question stable enchondroma distal left femur.
== END 2022-08-05 09:02 | disposition home or self-care (01) ==
LOC: HO.HOSX 09:01
PROVIDERS: Visit Provider Physician Assistant
DX: M17.11 Unilateral primary osteoarthritis, right knee (principal); M25.562 Pain in left knee
CPT/HCPCS: 73565; 99202

== ENCOUNTER 2022-08-08 11:13 | Emergency (ER) | payer OTHER, SELFPAY ==
--- NOTE | ~2022-08-08 | XR_ITS ---
EXAMINATION: XR TOES, LEFT CLINICAL INFORMATION: Pain COMPARISON: None available. TECHNIQUE: 3 views of the left toes were obtained. FINDINGS: There are no fractures or dislocations. No joint effusion is identified. No bone, joint or soft tissue abnormality is demonstrated. Radiolucent line through the lateral sesamoid at the level of the head of the first metatarsal probably bipartite sesamoid. XR/XR toe LT min 2V IMPRESSION: * No radiographic evidence of acute fracture. * Radiolucent line through the lateral sesamoid at the level of the head of the first metatarsal probably bipartite sesamoid.
[2022-08-08 11:20] VITALS: BP 130/74; PULSE 72; RESP 18; TEMP 36.8; O2SAT 97; BMI 28.2
--- NOTE | 2022-08-08 11:24 | ED.GENADULT ---
HPI - General Adult General Chief complaint: Extremity Injury, Lower <KIMBERLEE De Oliveira - Last Filed: 08/08/22 11:25> Stated complaint: l 5th toe inj at work <KIMBERLEE De Oliveira - Last Filed: 08/08/22 11:25> Time Seen by Provider: 08/08/22 11:31 <KIMBERLEE De Oliveira - Last Filed: 08/08/22 11:25> Source: patient <KIMBERLEE Greenfield - Last Filed: 08/08/22 12:27> Mode of arrival: ambulatory <KIMBERLEE Greenfield - Last Filed: 08/08/22 12:27> Limitations: no limitations <KIMBERLEE Greenfield - Last Filed: 08/08/22 12:27> History of Present Illness HPI narrative: This is a 27-year-old male presenting with left pinky toe pain status post jamming his toe into a grocery cart at work prior to arrival. Reports pain worse with ambulation, weight-bearing better at rest. Denies numbness and tingling. Patient has broke this toe before. Denies fevers and chills. Was ambulatory into room w/o difficulties <KIMBERLEE Greenfield - Last Filed: 08/08/22 12:27> Related Data Home medications: Home Medications Medication Instructions Recorded Confirmed multivitamin 1 tab PO DAILY 02/25/21 05/06/22 atomoxetine 25 mg capsule 1 cap PO QAM 08/13/21 05/06/22 lisdexamfetamine 10 mg capsule 10 mg PO QAM 08/05/22 (Vyvanse) Previous Rx's Medication Instructions Recorded miscellaneous medical supply #1 ea 06/04/21 (Blood Pressure Cuff) omeprazole 20 mg capsule,delayed 20 mg PO DAILY 14 days #14 caps 12/08/21 release clonidine HCl 0.1 mg tablet 0.1 mg PO TID #270 tabs 12/17/21 peg-electrolyte solution 420 gram 240 ml PO Q10M #4,000 mL 12/29/21 oral solution lidocaine 4 % topical cream 1 appl topical QID PRN pain #50 01/14/22 grams sucralfate 100 mg/mL oral 10 ml PO TID 1 month #900 mL 01/14/22 suspension (Carafate) vedolizumab 300 mg intravenous 300 mg IV Q2W 8 weeks #1 ea 05/09/22 solution (Entyvio) ibuprofen 600 mg tablet 600 mg PO Q8H PRN pain #14 tabs 07/16/22 rifaximin 550 mg tablet 550 mg PO TID 2 weeks #42 tabs 08/05/22 <KIMBERLEE De Oliveira - Last Filed: 08/08/22 11:25> Allergies/adverse reactions: Allergies Allergy/AdvReac Type Severity Reaction Status Date / Time penicillin V Allergy Intermediate rash Verified 08/05/22 09:18 <KIMBERLEE De Oliveira Last Filed: 08/08/22 11:25> Review of Systems Review of Systems: Constitutional : No Weight loss, No Fever, No Chills, No Fatigue, No Malaise ENT/Mouth : No sore throat, No Rhinorrhea Eyes: No Eye Pain, No Swelling, No Redness Cardiovascular : No Chest Pain, No SOB, No Dyspnea on Exertion, No Orthopnea, No Edema, No Palpitations Respiratory : No Cough, No Sputum, No Wheezing Gastrointestinal : No Nausea, No Vomiting, No Diarrhea, No Constipation, No abdominal Pain, No Hematochezia, No Melena Genitourinary : No Dysuria, No Urinary Frequency, No Hematuria, Musculoskeletal : + joint pain, No Myalgias, + Joint Swelling Skin : No Skin Lesions, No rash Neuro : No Weakness, No Numbness, No Dizziness, No Headache Psych : No Anxiety/Panic, No Depression All other systems reviewed and are negative <KIMBERLEE Greenfield - Last Filed: 08/08/22 12:27> Yes all other systems are reviewed and are negative <KIMBERLEE Greenfield - Last Filed: 08/08/22 12:27> PMFSH Past Medical History Attestation statement: The following information was validated with the patient. <KIMBERLEE Greenfield Last Filed: 08/08/22 12:27> Source: old records reviewed and nursing notes reviewed <KIMBERLEE Greenfield Last Filed: 08/08/22 12:27> Medical History: Medical History Acquired genu valgum of both knees Acute Crohn's disease ADHD (attention deficit hyperactivity disorder) Arthritis Depression Eczema Scoliosis Spondylosis of lumbosacral spine without myelopathy <KIMBERLEE De Oliveira - Last Filed: 08/08/22 11:25> Surgical History: Surgical History History of arthroscopy of both knees History of esophagogastroduodenoscopy (EGD) Hx of colonoscopy <KIMBERLEE De Oliveira - Last Filed: 08/08/22 11:25> Family History Family History: Family History Father No problems noted. Mother Hypertension Maternal Grandfather Diabetes Stroke Other Anemia <KIMBERLEE De Oliveira - Last Filed: 08/08/22 11:25> Social History Social History: Social History (Updated 08/05/22 @ 09:21 by ANA LILIA Ingram) Household Members: Friend(s) Housing: Apartment Do you presently have visiting nurse or other home services: No Alcohol intake: never Patient Tobacco Use Status: Former Tobacco user e-Cigarette/Vaping Use: Never Used Second Hand Smoke Exposure: No Advance Directives: No Advance Directives Information Provided: No service: No Current occupational status: employed Current occupation: [email or web address] Cognitive needs: No Hearing needs: No Vision needs: No <KIMBERLEE De Oliveira - Last Filed: 08/08/22 11:25> Physical Exam ED Vital Signs: Vital Signs - 24 hr 08/08/22 11:20 Temperature 98.3 F Pulse Rate 72 Respiratory Rate 18 Blood Pressure 130/74 Pulse Oximetry 97 Oxygen Delivery Method Room Air BMI result Body Mass Index 28.2 <KIMBERLEE De Oliveira - Last Filed: 08/08/22 11:25> Vital Signs - 24 hr 08/08/22 11:20 Temperature 98.3 F Pulse Rate 72 Respiratory Rate 18 Blood Pressure 130/74 Pulse Oximetry 97 Oxygen Delivery Method Room Air BMI result Body Mass Index 28.2 Vital signs stable <KIMBERLEE Greenfield - Last Filed: 08/08/22 12:27> Appearance: Alert.? Oriented X3.? No acute distress.? Head: Normocephalic, atraumatic, no step-offs or deformities Eyes: Pupils equal, round and reactive to light.? ENT: Pharynx normal.? Neck: Normal inspection.? Neck supple.? CVS: Normal heart rate and rhythm.? Pulses normal.? Respiratory: No respiratory distress.? Breath sounds normal.? Abdomen: Soft and nontender.? Skin: Skin warm and dry.? Normal skin color.? Normal skin turgor.? Extremities: No lower extremity edema.? No calf ttp. 5/5 strength to bilateral upper and lower extremities + pain with palpation to left 5th toe ( lateral aspect) , and range of motion to left 5th toe. Slight edema to left 5th toe. 2+ dorsalis pedis, anterior tibialis and posterior tibialis pulses equal bilateral. Normal sensation to lower extremities. Capillary refill less than 2 seconds. No footdrop. Neuro: Oriented X 3.? No motor deficit.? No sensory deficit. CN 2-12 intact <KIMBERLEE Greenfield - Last Filed: 08/08/22 12:27> Course Course Course Narrative: RME - 27 yo M here after striking his left fifth toe on shopping cart. Ambulatory with steady gait. VSS. Pt stable to return to the waiting room until treatment room becomes available. Plan: xray of left fifth toe <KIMBERLEE De Oliveira - Last Filed: 08/08/22 11:25> Reevaluation(s) Reevaluation #1: Chest x-ray essentially unremarkable no evidence of fracture dislocation. Radiolucent line through the lateral sesamoid at the level of the head of the 1st metatarsal probably bipartite sesamoid. Educated patient on diagnosis and treatment plan, answered all question, patient verbalizes understanding. At this time patient will be discharged home, advised to return with new or worsening symptoms. Educated on worrisome signs and symptoms and when to return. At this time I feel comfortable discharge home. <KIMBERLEE Greenfield - Last Filed: 08/08/22 12:27> Time: 12:26 <KIMBERLEE Greenfield - Last Filed: 08/08/22 12:27> Medical Decision Making Medical Decision Making [facility] Narrative: 1142 27-year-old male presents with pain with palpation to left pinky tell status post jamming his foot into a cart at work. Physical exam significant for + pain with palpation to left 5th toe (lateral aspect), and range of motion to left 5th toe. Slight edema to left 5th toe. 2+ dorsalis pedis, anterior tibialis and posterior tibialis pulses equal bilateral. Normal sensation to lower extremities. Capillary refill less than 2 seconds. No footdrop. Concerns for fracture of 5th toe versus sprain or strain versus contusion. No signs of neurovascular compromise, threatened limb. Plan at this time x-ray <KIMBERLEE Greenfield - Last Filed: 08/08/22 12:27> Differential Diagnosis Differential Diagnoses: The differential diagnosis associated with the presentation includes <KIMBERLEE Greenfield - Last Filed: 08/08/22 12:27> Concerns for fracture of 5th toe versus sprain or strain versus contusion. No signs of neurovascular compromise, threatened limb. <KIMBERLEE Greenfield - Last Filed: 08/08/22 12:27> Admission/Observation Consideration of admission/observation: Escalation of care including admission/observation considered <KIMBERLEE Greenfield - Last Filed: 08/08/22 12:27> Independent Interpretation I performed an independent interpretation of an: Plain X-Ray <KIMBERLEE Greenfield - Last Filed: 08/08/22 12:27> Radiology Impression Discussion of test interpretation with radiology: I have reviewed the radiologist's reading. <KIMBERLEE Greenfield - Last Filed: 08/08/22 12:27> External Record Review External record reviewed: Inpatient record, Office record, Outpatient record, Prior outpatient labs, Prior outpatient radiology, Primary care record and Outside ED record <KIMBERLEE Greenfield - Last Filed: 08/08/22 12:27> Core Measures AMI core measures followed: Yes <KIMBERLEE Greenfield Last Filed: 08/08/22 12:27> Measure exclusions: not indicated <KIMBERLEE Greenfield Last Filed: 08/08/22 12:27> Critical Care Time Critical Care Time Critical Care Time: No <KIMBERLEE Greenfield Last Filed: 08/08/22 12:27> Discharge Plan Discharge Clinical Impression: Toe pain, left, Work related injury <KIMBERLEE De Oliveira Last Filed: 08/08/22 11:25> Patient Disposition: Home, Self-Care <Leola NguyenKIMBERLEE cooney - Last Filed: 08/08/22 11:25> Instructions: Arthralgia (ED) <Leola NguyenKIMBERLEE cooney - Last Filed: 08/08/22 11:25> Additional Instructions: Take your medications as prescribed. If you were prescribed antibiotics today, it is important that you take your medication to their entirety, do not skip any doses, do not finish them early. Follow-up with your primary care provider this week. Return to the emergency department with new or worsening symptoms. Such as fevers, chills, chest pain, shortness of breath, nausea, vomiting, dizziness, headache, vision changes, lethargy In case of emergency call 911 Follow-up with work connection as this is a work related injury. You can take ibuprofen every 6 hours, Tylenol every 4 as needed for pain or discomfort. ?XR/XR toe LT min 2V IMPRESSION: ? *? No radiographic evidence of acute fracture. ? *? Radiolucent line through the lateral sesamoid at the level of the head of the first metatarsal probably bipartite sesamoid. <Leola NguyenKIMBERLEE cooney - Last Filed: 08/08/22 11:25> Prescriptions: No Action clonidine HCl 0.1 mg tablet 0.1 mg PO TID Qty: 270 1RF Entyvio 300 mg recon soln 300 mg IV Q2W 56 Days Qty: 1 8RF Rx Instructions: Infuse 300mg IV at week 0, 2, 6, then every 8 weeks maintainence dose rifaximin 550 mg tablet 550 mg PO TID 14 Days Qty: 42 0RF multivitamin Tablet 1 tab PO DAILY atomoxetine 25 mg capsule 1 cap PO QAM ibuprofen 600 mg tablet 600 mg PO Q8H PRN (Reason: pain) Qty: 14 0RF (DME) Blood Pressure Cuff Misc See Rx Instructions .ROUTE .MEDSUPPLY Qty: 1 0RF Rx Instructions: blood pressure checks daily and as needed large cuff please omeprazole 20 mg capsule,delayed release(DR/EC) 20 mg PO DAILY 14 Days Qty: 14 0RF sucralfate [Carafate] 100 mg/mL suspension 10 ml PO TID 30 Days Qty: 900 5RF lidocaine 4 % cream 1 appl topical QID PRN (Reason: pain) Qty: 50 4RF peg-electrolyte soln 420 gram recon soln 240 ml PO Q10M Qty: 4000 0RF Rx Instructions: until fecal effluent is clear; do not exceed a total volume of 2,000 mL Vyvanse 10 mg capsule 10 mg PO QAM <KIMBERLEE De Oliveira - Last Filed: 08/08/22 11:25> Referrals: [facility] [Provider Group] - 2 weeks Shakira Higgins NP [Primary Care Provider] - 2 days <KIMBERLEE De Oliveira - Last Filed: 08/08/22 11:25>
[2022-08-08 13:30] VITALS: BP 127/71; PULSE 68; RESP 18; O2SAT 100
== END 2022-08-08 13:45 | disposition home or self-care (01) ==
PROVIDERS: Emergency Provider Emergency Medicine; PCP Hospitalist
DX: Z04.2 Encounter for examination and observation following work accident (principal); M79.675 Pain in left toe(s)
CPT/HCPCS: 73660; 99283; 99284

== ENCOUNTER 2022-08-19 14:56 | Emergency (ER) | payer OTHER, SELFPAY ==
[2022-08-19 15:07] VITALS: BP 138/74; PULSE 89; RESP 20; TEMP 36.8; O2SAT 99; BMI 28.1
--- NOTE | 2022-08-19 15:08 | ED_ITS ---
HPI - Nausea/Vomiting/Diarrhea General Chief complaint: Abdominal Pain <KIMBERLEE Ron - Last Filed: 08/19/22 15:11> Stated complaint: Diarrhea Fatigue <KIMBERLEE Ron - Last Filed: 08/19/22 15:11> Time Seen by Provider: 08/19/22 20:51 <KIMBERLEE Ron - Last Filed: 08/19/22 15:11> Source: patient, RN notes reviewed and old records reviewed <Rolando Viramontes - Last Filed: 08/19/22 22:31> Mode of arrival: ambulatory <Rolando Viramontes - Last Filed: 08/19/22 22:31> Limitations: no limitations <Rolando Viramontes - Last Filed: 08/19/22 22:31> History of Present Illness HPI Narrative: this 27-year-old male past medical history significant for Crohn disease on Entyvio managed by Dr. Khan, hypertension presents for evaluation of nonbloody diarrhea. patient reports that his symptoms started this morning when he woke up he reports that he feels general malaise and fatigue as well states the last time this happened was a few weeks ago when he was seen here he reports that he usually gets IV fluids and I feel better. Denies any history abdominal surgeries <Rolando Viramontes - Last Filed: 08/19/22 22:31> Associated nausea: No <Rolando Viramontes - Last Filed: 08/19/22 22:31> Related Data Home medications: Home Medications Medication Instructions Recorded Confirmed multivitamin 1 tab PO DAILY 02/25/21 05/06/22 atomoxetine 25 mg capsule 1 cap PO QAM 08/13/21 05/06/22 lisdexamfetamine 10 mg capsule 10 mg PO QAM 08/05/22 (Vyvanse) Previous Rx's Medication Instructions Recorded miscellaneous medical supply #1 ea 06/04/21 (Blood Pressure Cuff) omeprazole 20 mg capsule,delayed 20 mg PO DAILY 14 days #14 caps 12/08/21 release clonidine HCl 0.1 mg tablet 0.1 mg PO TID #270 tabs 12/17/21 peg-electrolyte solution 420 gram 240 ml PO Q10M #4,000 mL 12/29/21 oral solution lidocaine 4 % topical cream 1 appl topical QID PRN pain #50 01/14/22 grams sucralfate 100 mg/mL oral 10 ml PO TID 1 month #900 mL 01/14/22 suspension (Carafate) vedolizumab 300 mg intravenous 300 mg IV Q2W 8 weeks #1 ea 05/09/22 solution (Entyvio) ibuprofen 600 mg tablet 600 mg PO Q8H PRN pain #14 tabs 07/16/22 metronidazole 500 mg tablet 500 mg PO TID 14 days #42 tabs 08/19/22 <KIMBERLEE Ron - Last Filed: 08/19/22 15:11> Allergies/Adverse reactions: Allergies Allergy/AdvReac Type Severity Reaction Status Date / Time penicillin V Allergy Intermediate rash Verified 08/05/22 09:18 <KIMBERLEE Ron - Last Filed: 08/19/22 15:11> Review of Systems Constitutional: Constitutional: Reports as per HPI, Denies chills, Denies fatigue, Denies fever(s) and Denies headache(s) <Rolando Viramontes - Last Filed: 08/19/22 22:31> ENT: Denies headache(s) <Rolando Viramontes - Last Filed: 08/19/22 22:31> Cardiovascular: Cardiovascular: Denies chest pain and Denies dyspnea <Rolando Viramontes - Last Filed: 08/19/22 22:31> Respiratory: Respiratory: Denies cough and Denies dyspnea <Rolando Viramontes - Last Filed: 08/19/22 22:31> Gastrointestinal: Gastrointestinal: Reports abdominal pain, Denies hematochezia, Denies constipation, Reports diarrhea, Reports loose stools, Denies nausea and Denies vomiting <Rolando Viramontes - Last Filed: 08/19/22 22:31> Genitourinary: Genitourinary: Denies difficulty urinating and Denies dysuria <Rolando Viramontes - Last Filed: 08/19/22 22:31> Neurologic: Denies headache(s) and Denies focal weakness <Rolando Viramontes - Last Filed: 08/19/22 22:31> Endocrine: Endocrine: Denies fatigue <Rolando Viramontes - Last Filed: 08/19/22 22:31> PMFSH Past Medical History Medical History: Medical History Acquired genu valgum of both knees Acute Crohn's disease ADHD (attention deficit hyperactivity disorder) Arthritis Depression Eczema Scoliosis Spondylosis of lumbosacral spine without myelopathy <KIMBERLEE Ron - Last Filed: 08/19/22 15:11> Surgical History: Surgical History History of arthroscopy of both knees History of esophagogastroduodenoscopy (EGD) Hx of colonoscopy <KIMBERLEE Ron - Last Filed: 08/19/22 15:11> Family History Family History: Family History Father No problems noted. Mother Hypertension Maternal Grandfather Diabetes Stroke Other Anemia <KIMBERLEE Ron - Last Filed: 08/19/22 15:11> Social History Social History: Social History (Updated 08/05/22 @ 09:21 by ANA LILIA Ingram) Household Members: Friend(s) Housing: Apartment Do you presently have visiting nurse or other home services: No Alcohol intake: never Patient Tobacco Use Status: Former Tobacco user e-Cigarette/Vaping Use: Never Used Second Hand Smoke Exposure: No Advance Directives: No Advance Directives Information Provided: No service: No Current occupational status: employed Current occupation: [employer] Cognitive needs: No Hearing needs: No Vision needs: No <KIMBERLEE Ron - Last Filed: 08/19/22 15:11> Physical Exam Vital Signs: Vital Signs: Last Vital Signs Temp 98.6 F 08/19/22 20:53 Pulse 59 08/19/22 20:53 Resp 16 08/19/22 20:53 BP 115/78 08/19/22 20:53 Pulse Ox 99 08/19/22 20:53 O2 Del Method Room Air 08/19/22 20:53 BMI result Body Mass Index 28.1 <KIMBERLEE Ron - Last Filed: 08/19/22 15:11> Vital Signs: Last Vital Signs Temp 98.6 F 08/19/22 20:53 Pulse 59 08/19/22 20:53 Resp 16 08/19/22 20:53 BP 115/78 08/19/22 20:53 Pulse Ox 99 08/19/22 20:53 O2 Del Method Room Air 08/19/22 20:53 BMI result Body Mass Index 28.1 <Rolando ORohith - Last Filed: 08/19/22 22:31> Const: General: healthy appearing, comfortable, no acute distress, alert and awake <Rolando ORohith - Last Filed: 08/19/22 22:31> Nutritional Appearance: well nourished <Rolando Darwin Last Filed: 08/19/22 22:31> Orientation/consciousness: patient oriented x3 <Rolando Darwin Last Filed: 08/19/22 22:31> HEENT: Head: Yes normocephalic and Yes atraumatic < Last Filed: 08/19/22 22:31> Neck: Neck: Yes full ROM < Last Filed: 08/19/22 22:31> Resp: Effort & Inspection: normal respiratory effort, able to speak in complete sentences, no audible wheezes and not labored <Rolando DarwinHall Summit - Last Filed: 08/19/22 22:31> Auscultation: clear to auscultation bilaterally <Rolando O Last Filed: 08/19/22 22:31> Cardio: Rate: regular rate <Rolando ORohith - Last Filed: 08/19/22 22:31> Rhythm: regular rhythm <Rolando DarwinRohith - Last Filed: 08/19/22 22:31> GI: Inspection: No distended <Rolando DarwinHall [place] - Last Filed: 08/19/22 22:31> Palpation (GI): Soft to palpation, not firm, Tenderness to palpation present (GI) ( diffusely tender without guarding), no guarding and not rigid <Rolando [place] - Last Filed: 08/19/22 22:31> Auscultation: normoactive bowel sounds <Rolando DarwinRohith - Last Filed: 08/19/22 22:31> Skin: General skin exam: no rashes or lesions noted and elasticity normal <Rolando Viramontes - Last Filed: 08/19/22 22:31> Neuro: General: patient oriented x3 <Rolando BarakatRohith - Last Filed: 08/19/22 22:31> Cranial nerves: Yes Bilaterally intact EOM present <Rolando Viramontes - Last Filed: 08/19/22 22:31> Cognition (Neuro): normal cognition <Rolando BarakatHall [place] - Last Filed: 08/19/22 22:31> Course Course Course Narrative: RME - 27 yo male of Crohn's disease on Entivio presents to the ER for evaluation of 5 episodes of watery, nonbloody diarrhea today associated with fatigue and weakness. Follow w/ Dr. Khan. He reports 5/10 central abd pain, no vomiting but nauseated. ' Plan: basic lab workup - review w/ Dr. Khan. he has had 2 CT scans already so far this year <KIMBERLEE Ron - Last Filed: 08/19/22 15:11> Reevaluation(s) Reevaluation #1: patient reports feeling better after IV fluids, his vital signs remained stable, he is stable for discharge. <Rolando Viramontes - Last Filed: 08/19/22 22:31> Time: 22:29 <Rolando Viramontes - Last Filed: 08/19/22 22:31> Medications Administered Discontinued Medications Generic Name Dose Route Start Last Admin Trade Name Freq PRN Reason Stop Dose Admin Sodium Chloride 1,000 mls @ 999 mls/hr 08/19/22 21:00 08/19/22 21:45 Ns IV 08/19/22 22:00 999 mls/hr .Q1H1M GAGE Administration Ketorolac Tromethamine 30 mg 08/19/22 20:55 08/19/22 21:47 Ketorolac Tromethamine 30 Mg/Ml Vial IVPUSH 08/19/22 20:56 30 mg ONCE ONE Administration <KIMBERLEE Ron - Last Filed: 08/19/22 15:11> Medications Administered Discontinued Medications Generic Name Dose Route Start Last Admin Trade Name Freq PRN Reason Stop Dose Admin Sodium Chloride 1,000 mls @ 999 mls/hr 08/19/22 21:00 08/19/22 21:45 Ns IV 08/19/22 22:00 999 mls/hr .Q1H1M GAGE Administration Ketorolac Tromethamine 30 mg 08/19/22 20:55 08/19/22 21:47 Ketorolac Tromethamine 30 Mg/Ml Vial IVPUSH 08/19/22 20:56 30 mg ONCE ONE Administration <Rolando Viramontes - Last Filed: 08/19/22 22:31> Medical Decision Making Medical Decision Making [facility] Narrative: 27-year-old male presents for evaluation of diarrhea, abdominal pain. He believes this is a flare-up of his Crohn's. His labs are reviewed that did not show any significant abnormalities. He has no leukocytosis, his inflammatory markers are not elevated. His BUN is 22 which is just above normal which could be related to his frequent watery diarrhea today. Will treat with IV fluids and Toradol. His abdomen is soft, nondistended. It is diffusely tender but without guarding. <Rolando Viramontes - Last Filed: 08/19/22 22:31> Differential Diagnosis Acute diarrhea Viral syndrome Colitis Crohn's disease <Rolando Viramontes - Last Filed: 08/19/22 22:31> Lab Data [facility] Lab Attestation statement: I reviewed the patient's lab results. <Rolando Viramontes - Last Filed: 08/19/22 22:31> Result Diagrams: 08/19/22 16:59 08/19/22 16:59 <KIMBERLEE Ron - Last Filed: 08/19/22 15:11> Labs: Lab Results 08/19/22 08/19/22 08/19/22 Range/Units 16:59 16:59 16:59 WBC 7.8 (4.8-10.8) X10*3/uL RBC 5.12 (4.60-5.80) X10*6/uL Hgb 15.0 (14.0-18.0) g/dl Hct 45.8 (42.0-52.0) % MCV 89.5 (80.0-98.0) fL MCH 29.3 (27.0-33.0) pg MCHC 32.8 (31.0-36.0) g/dl RDW 13.1 (11.0-16.0) % Plt Count 246 (160-400) X10*3/uL MPV 9.9 (9.4-12.4) fL Immature Gran % (Auto) 0.3 (0.0-0.4) % Neut % (Auto) 58.1 (45-73) % Lymph % (Auto) 31.7 (20-40) % [place] % (Auto) 7.4 (2-11) % Eos % (Auto) 2.2 (0-4) % Baso % (Auto) 0.3 (0-2) % Lymph # (Auto) 2.5 (1.2-4.9) X10*3/uL [place] # (Auto) 0.6 (0.1-1.2) X10*3/uL Eos # (Auto) 0.2 (0.0-0.4) X10*3/uL Baso # (Auto) 0.0 (0.0-0.2) X10*3/uL Abs Immat Gran (auto) 0.02 (0.00-0.03) X10*3/uL Absolute Neuts (auto) 4.5 (2.0-8.3) x10*3/uL Absolute Nucleated RBC 0.000 (0.0-0.012) X10*3/uL Nucleated RBC % (auto) 0.0 (0.0-0.2) /100WBC ESR 2 (0-15) MM/HR Sodium 144 (135-145) mmol/L Potassium 4.6 (3.3-5.1) mmol/L Chloride 108 (96-108) mmol/L Carbon Dioxide 29 (22-29) mmol/L Anion Gap 12 (12-20) BUN 22 H (9-16) mg/dL Creatinine 0.90 (0.5-1.4) mg/dL Estim Creat Clear Calc 159.6 Estimated GFR > 60 Random Glucose 92 (60-115) mg/dL Calcium 9.6 (8.4-10.2) mg/dL Magnesium 2.0 (1.6-2.6) mg/dL Total Bilirubin 0.4 (0.0-1.0) mg/dL Direct Bilirubin 0.1 (0.0-0.5) mg/dL AST 20 (5-37) U/L ALT 26 (0-40) U/L Alkaline Phosphatase 77 (39-117) U/L C-Reactive Protein < 0.10 (< or = 0.50) mg/dL Total Protein 7.1 (6.5-8.0) g/dL Albumin 4.6 (3.5-5.0) g/dL Lipase 28 (8-78) U/L Urine Color Urine Appearance Urine pH (5.0-9.0) Ur Specific [place] (1.005-1.025) Urine Protein (Neg-Trace) mg/dL Urine Glucose (UA) (Negative) mg/dL Urine Ketones (Negative) mg/dL Urine Blood (Negative) Urine Nitrite (Negative) Ur Leukocyte Esterase (Negative) 08/19/22 08/19/22 Range/Units 16:59 21:06 WBC (4.8-10.8) X10*3/uL RBC (4.60-5.80) X10*6/uL Hgb (14.0-18.0) g/dl Hct (42.0-52.0) % MCV (80.0-98.0) fL MCH (27.0-33.0) pg MCHC (31.0-36.0) g/dl RDW (11.0-16.0) % Plt Count (160-400) X10*3/uL MPV (9.4-12.4) fL Immature Gran % (Auto) (0.0-0.4) % Neut % (Auto) (45-73) % Lymph % (Auto) (20-40) % [place] % (Auto) (2-11) % Eos % (Auto) (0-4) % Baso % (Auto) (0-2) % Lymph # (Auto) (1.2-4.9) X10*3/uL [place] # (Auto) (0.1-1.2) X10*3/uL Eos # (Auto) (0.0-0.4) X10*3/uL Baso # (Auto) (0.0-0.2) X10*3/uL Abs Immat Gran (auto) (0.00-0.03) X10*3/uL Absolute Neuts (auto) (2.0-8.3) x10*3/uL Absolute Nucleated RBC (0.0-0.012) X10*3/uL Nucleated RBC % (auto) (0.0-0.2) /100WBC ESR (0-15) MM/HR Sodium (135-145) mmol/L Potassium (3.3-5.1) mmol/L Chloride (96-108) mmol/L Carbon Dioxide (22-29) mmol/L Anion Gap (12-20) BUN (9-16) mg/dL Creatinine (0.5-1.4) mg/dL Estim Creat Clear Calc Estimated GFR Random Glucose (60-115) mg/dL Calcium (8.4-10.2) mg/dL Magnesium 2.0 (1.6-2.6) mg/dL Total Bilirubin (0.0-1.0) mg/dL Direct Bilirubin (0.0-0.5) mg/dL AST (5-37) U/L ALT (0-40) U/L Alkaline Phosphatase (39-117) U/L C-Reactive Protein (< or = 0.50) mg/dL Total Protein (6.5-8.0) g/dL Albumin (3.5-5.0) g/dL Lipase 27 (8-78) U/L Urine Color Yellow Urine Appearance Clear Urine pH 6.0 (5.0-9.0) Ur Specific [place] 1.025 (1.005-1.025) Urine Protein Negative (Neg-Trace) mg/dL Urine Glucose (UA) Negative (Negative) mg/dL Urine Ketones Negative (Negative) mg/dL Urine Blood Negative (Negative) Urine Nitrite Negative (Negative) Ur Leukocyte Esterase Negative (Negative) <KIMBERLEE Ron - Last Filed: 08/19/22 15:11> Lab Results 08/19/22 08/19/22 08/19/22 Range/Units 16:59 16:59 16:59 WBC 7.8 (4.8-10.8) X10*3/uL RBC 5.12 (4.60-5.80) X10*6/uL Hgb 15.0 (14.0-18.0) g/dl Hct 45.8 (42.0-52.0) % MCV 89.5 (80.0-98.0) fL MCH 29.3 (27.0-33.0) pg MCHC 32.8 (31.0-36.0) g/dl RDW 13.1 (11.0-16.0) % Plt Count 246 (160-400) X10*3/uL MPV 9.9 (9.4-12.4) fL Immature Gran % (Auto) 0.3 (0.0-0.4) % Neut % (Auto) 58.1 (45-73) % Lymph % (Auto) 31.7 (20-40) % [place] % (Auto) 7.4 (2-11) % Eos % (Auto) 2.2 (0-4) % Baso % (Auto) 0.3 (0-2) % Lymph # (Auto) 2.5 (1.2-4.9) X10*3/uL [place] # (Auto) 0.6 (0.1-1.2) X10*3/uL Eos # (Auto) 0.2 (0.0-0.4) X10*3/uL Baso # (Auto) 0.0 (0.0-0.2) X10*3/uL Abs Immat Gran (auto) 0.02 (0.00-0.03) X10*3/uL Absolute Neuts (auto) 4.5 (2.0-8.3) x10*3/uL Absolute Nucleated RBC 0.000 (0.0-0.012) X10*3/uL Nucleated RBC % (auto) 0.0 (0.0-0.2) /100WBC ESR 2 (0-15) MM/HR Sodium 144 (135-145) mmol/L Potassium 4.6 (3.3-5.1) mmol/L Chloride 108 (96-108) mmol/L Carbon Dioxide 29 (22-29) mmol/L Anion Gap 12 (12-20) BUN 22 H (9-16) mg/dL Creatinine 0.90 (0.5-1.4) mg/dL Estim Creat Clear Calc 159.6 Estimated GFR > 60 Random Glucose 92 (60-115) mg/dL Calcium 9.6 (8.4-10.2) mg/dL Magnesium 2.0 (1.6-2.6) mg/dL Total Bilirubin 0.4 (0.0-1.0) mg/dL Direct Bilirubin 0.1 (0.0-0.5) mg/dL AST 20 (5-37) U/L ALT 26 (0-40) U/L Alkaline Phosphatase 77 (39-117) U/L C-Reactive Protein < 0.10 (< or = 0.50) mg/dL Total Protein 7.1 (6.5-8.0) g/dL Albumin 4.6 (3.5-5.0) g/dL Lipase 28 (8-78) U/L Urine Color Urine Appearance Urine pH (5.0-9.0) Ur Specific [place] (1.005-1.025) Urine Protein (Neg-Trace) mg/dL Urine Glucose (UA) (Negative) mg/dL Urine Ketones (Negative) mg/dL Urine Blood (Negative) Urine Nitrite (Negative) Ur Leukocyte Esterase (Negative) 08/19/22 08/19/22 Range/Units 16:59 21:06 WBC (4.8-10.8) X10*3/uL RBC (4.60-5.80) X10*6/uL Hgb (14.0-18.0) g/dl Hct (42.0-52.0) % MCV (80.0-98.0) fL MCH (27.0-33.0) pg MCHC (31.0-36.0) g/dl RDW (11.0-16.0) % Plt Count (160-400) X10*3/uL MPV (9.4-12.4) fL Immature Gran % (Auto) (0.0-0.4) % Neut % (Auto) (45-73) % Lymph % (Auto) (20-40) % [place] % (Auto) (2-11) % Eos % (Auto) (0-4) % Baso % (Auto) (0-2) % Lymph # (Auto) (1.2-4.9) X10*3/uL [place] # (Auto) (0.1-1.2) X10*3/uL Eos # (Auto) (0.0-0.4) X10*3/uL Baso # (Auto) (0.0-0.2) X10*3/uL Abs Immat Gran (auto) (0.00-0.03) X10*3/uL Absolute Neuts (auto) (2.0-8.3) x10*3/uL Absolute Nucleated RBC (0.0-0.012) X10*3/uL Nucleated RBC % (auto) (0.0-0.2) /100WBC ESR (0-15) MM/HR Sodium (135-145) mmol/L Potassium (3.3-5.1) mmol/L Chloride (96-108) mmol/L Carbon Dioxide (22-29) mmol/L Anion Gap (12-20) BUN (9-16) mg/dL Creatinine (0.5-1.4) mg/dL Estim Creat Clear Calc Estimated GFR Random Glucose (60-115) mg/dL Calcium (8.4-10.2) mg/dL Magnesium 2.0 (1.6-2.6) mg/dL Total Bilirubin (0.0-1.0) mg/dL Direct Bilirubin (0.0-0.5) mg/dL AST (5-37) U/L ALT (0-40) U/L Alkaline Phosphatase (39-117) U/L C-Reactive Protein (< or = 0.50) mg/dL Total Protein (6.5-8.0) g/dL Albumin (3.5-5.0) g/dL Lipase 27 (8-78) U/L Urine Color Yellow Urine Appearance Clear Urine pH 6.0 (5.0-9.0) Ur Specific [place] 1.025 (1.005-1.025) Urine Protein Negative (Neg-Trace) mg/dL Urine Glucose (UA) Negative (Negative) mg/dL Urine Ketones Negative (Negative) mg/dL Urine Blood Negative (Negative) Urine Nitrite Negative (Negative) Ur Leukocyte Esterase Negative (Negative) <Rolando Viramontes - Last Filed: 08/19/22 22:31> Discharge Plan Discharge Clinical Impression: Acute diarrhea <KIMBERLEE Ron - Last Filed: 08/19/22 15:11> Patient Disposition: Home, Self-Care <KIMBERLEE Ron - Last Filed: 08/19/22 15:11> Instructions: Acute Diarrhea (ED) <KIMBERLEE Ron - Last Filed: 08/19/22 15:11> Additional Instructions: Your white blood cell count was within normal limits, your inflammatory markers were within normal limits. This does not appear to have been a significant Crohn's flare. therefore, I do not think we need to treat with steroids at this time. Continue using your Entyvio and follow-up with your GI doctor. <KIMBERLEE Ron - Last Filed: 08/19/22 15:11> Prescriptions: No Action clonidine HCl 0.1 mg tablet 0.1 mg PO TID Qty: 270 1RF Entyvio 300 mg recon soln 300 mg IV Q2W 56 Days Qty: 1 8RF Rx Instructions: Infuse 300mg IV at week 0, 2, 6, then every 8 weeks maintainence dose metronidazole 500 mg tablet 500 mg PO TID 14 Days Qty: 42 0RF multivitamin Tablet 1 tab PO DAILY atomoxetine 25 mg capsule 1 cap PO QAM ibuprofen 600 mg tablet 600 mg PO Q8H PRN (Reason: pain) Qty: 14 0RF (DME) Blood Pressure Cuff Misc See Rx Instructions .ROUTE .MEDSUPPLY Qty: 1 0RF Rx Instructions: blood pressure checks daily and as needed large cuff please omeprazole 20 mg capsule,delayed release(DR/EC) 20 mg PO DAILY 14 Days Qty: 14 0RF sucralfate [Carafate] 100 mg/mL suspension 10 ml PO TID 30 Days Qty: 900 5RF lidocaine 4 % cream 1 appl topical QID PRN (Reason: pain) Qty: 50 4RF peg-electrolyte soln 420 gram recon soln 240 ml PO Q10M Qty: 4000 0RF Rx Instructions: until fecal effluent is clear; do not exceed a total volume of 2,000 mL Vyvanse 10 mg capsule 10 mg PO QAM <KIMBERLEE Ron - Last Filed: 08/19/22 15:11>
[2022-08-19 17:10] LABS: MANUAL DIFF FLAG NO
[2022-08-19 17:14] LABS: Basophils Percent Auto 0.3 % (0-2); Eosinophils Absolute Auto 0.2 X10*3/uL (0.0-0.4); Eosinophils Percent Auto 2.2 % (0-4); Hematocrit 45.8 % (42.0-52.0); Imm Gran Abs Auto 0.02 X10*3/uL (0.00-0.03); Imm Gran Pct Auto 0.3 % (0.0-0.4); Lymphocytes Absolute Auto 2.5 X10*3/uL (1.2-4.9); Lymphocytes Percent Auto 31.7 % (20-40); Mean Corpuscular HGB Conc 32.8 g/dl (31.0-36.0); Mean Corpuscular Hemoglobin 29.3 pg (27.0-33.0); Mean Corpuscular Volume 89.5 fL (80.0-98.0); Mean Platelet Volume 9.9 fL (9.4-12.4); Monocytes Absolute Auto 0.6 X10*3/uL (0.1-1.2); Monocytes Percent Auto 7.4 % (2-11); Neutrophils Absolute Auto 4.5 x10*3/uL (2.0-8.3); Neutrophils Percent Auto 58.1 % (45-73); Platelet Count 246 X10*3/uL (160-400); Red Blood Count 5.12 X10*6/uL (4.60-5.80); Red Cell Distribution Width 13.1 % (11.0-16.0); White Blood Count 7.8 X10*3/uL (4.8-10.8)
[2022-08-19 17:43] LABS: Alanine Aminotransferase 26 U/L (0-40); Albumin Level 4.6 g/dL (3.5-5.0); Alkaline Phosphatase 77 U/L (39-117); Anion Gap 12 (12-20); Aspartate Amino Transferase 20 U/L (5-37); Bilirubin Direct 0.1 mg/dL (0.0-0.5); Bilirubin Total 0.4 mg/dL (0.0-1.0); Blood Urea Nitrogen 22 mg/dL (9-16); C Reactive Protein < 0.10 mg/dL (< or = 0.50); Calcium 9.6 mg/dL (8.4-10.2); Carbon Dioxide 29 mmol/L (22-29); Chloride 108 mmol/L (96-108); Creatinine Clr Calc Pharmacy 159.6; Estimated Glomerular Filt Rate > 60; Glucose Random 92 mg/dL (60-115); Lipase 27 U/L (8-78); Lipase 28 U/L (8-78); Potassium 4.6 mmol/L (3.3-5.1); Sodium 144 mmol/L (135-145); Total Protein 7.1 g/dL (6.5-8.0)
[2022-08-19 19:11] LABS: Erythrocyte Sedimentation Rate 2 MM/HR (0-15)
[2022-08-19 20:53] VITALS: BP 115/78; PULSE 59; RESP 16; TEMP 37; O2SAT 99
[2022-08-19 21:13] LABS: Appearance Urine Clear; Color Urine Yellow; Glucose Urine UA Negative (Negative); Leukocyte Esterase Urine Negative (Negative); Nitrite Urine Negative (Negative); Specific Gravity - Urine 1.025 (1.005-1.025); Urine Blood Negative (Negative); Urine Ketones Negative (Negative); Urine Protein Negative (Neg-Trace)
[2022-08-19] MEDS: 0.9 % Sodium Chloride 1,000 ML 999 ML IV (21:45)
[2022-08-19] MEDS: Ketorolac Tromethamine 30 MG/ML VIAL IVPUSH (21:47)
[2022-08-19 22:45] VITALS: BP 119/69; PULSE 62; RESP 16; TEMP 36.4; O2SAT 100
== END 2022-08-19 22:50 | disposition home or self-care (01) ==
PROVIDERS: Physician Assistant; Emergency Provider Internal Medicine; PCP Hospitalist
DX: R19.7 Diarrhea, unspecified (principal); K50.90 Crohn's disease, unspecified, without complications; I10 Essential (primary) hypertension; Z79.899 Other long term (current) drug therapy
CPT/HCPCS: 36415; 80048; 80076; 81003; 83690; 83735; 85025; 85652; 86140; 96374; 99284; J1885

== ENCOUNTER 2022-08-22 11:19 | Emergency (ER) | payer OTHER, SELFPAY ==
[2022-08-22 11:25] VITALS: BP 127/81; PULSE 79; RESP 18; TEMP 36.6; O2SAT 100; BMI 28.7
--- NOTE | 2022-08-22 11:29 | ED_ITS ---
HPI - General Adult General Chief complaint: Nausea/Vomiting/Diarrhea Stated complaint: diarrhea weak Time Seen by Provider: 08/22/22 12:43 Source: patient Mode of arrival: ambulatory Limitations: no limitations History of Present Illness HPI narrative: 27-year-old male with a history of Crohn's disease on Entyvio followed by Dr. Khan who presents to the ER with complaints of intermittent diarrhea and fatigue for the last few weeks. Patient reports he was seen here in the emergency room on August 19 and had labs and received IV fluids and was discharged home. He tells me Dr. Khan sent a prescription for Flagyl to his pharmacy and he has been taking Flagyl 500 mg since August 19. He continues to have intermittent diarrhea and feels overall fatigued. He tells me he has no abdominal pain, vomiting, fever, blood in stools. Related Data Home Medications Medication Instructions Recorded Confirmed multivitamin 1 tab PO DAILY 02/25/21 05/06/22 atomoxetine 25 mg capsule 1 cap PO QAM 08/13/21 05/06/22 lisdexamfetamine 10 mg capsule 10 mg PO QAM 08/05/22 (Vyvanse) Previous Rx's Medication Instructions Recorded miscellaneous medical supply #1 ea 06/04/21 (Blood Pressure Cuff) omeprazole 20 mg capsule,delayed 20 mg PO DAILY 14 days #14 caps 12/08/21 release clonidine HCl 0.1 mg tablet 0.1 mg PO TID #270 tabs 12/17/21 peg-electrolyte solution 420 gram 240 ml PO Q10M #4,000 mL 12/29/21 oral solution lidocaine 4 % topical cream 1 appl topical QID PRN pain #50 01/14/22 grams sucralfate 100 mg/mL oral 10 ml PO TID 1 month #900 mL 01/14/22 suspension (Carafate) vedolizumab 300 mg intravenous 300 mg IV Q2W 8 weeks #1 ea 05/09/22 solution (Entyvio) ibuprofen 600 mg tablet 600 mg PO Q8H PRN pain #14 tabs 07/16/22 metronidazole 500 mg tablet 500 mg PO TID 14 days #42 tabs 08/19/22 Allergies Allergy/AdvReac Type Severity Reaction Status Date / Time penicillin V Allergy Intermediate rash Verified 08/05/22 09:18 Review of Systems Review of Systems: Yes all other systems are reviewed and are negative Constitutional: Constitutional: Reports no additional constitutional complaints, Denies body ache(s), Denies chills, Reports fatigue, Denies fever(s), Denies headache(s) and Denies weakness Eyes: Eyes: Reports no additional eye complaints and Denies change in vision ENT: Reports system reviewed and no additional complaints, except as documented, Denies dizziness, Denies headache(s), Denies nasal congestion, Denies nasal discharge and Denies neck pain Cardiovascular: Cardiovascular: Reports no additional cardiovascular complaints, Denies chest pain, Denies leg edema and Denies dyspnea Respiratory: Respiratory: Reports no additional respiratory complaints, Denies cough and Denies dyspnea Gastrointestinal: Gastrointestinal: Reports no additional gastrointestinal complaints, Denies abdominal pain, Reports diarrhea, Denies nausea and Denies vomiting Genitourinary: Genitourinary: Denies urinary incontinence Musculoskeletal: Musculoskeletal: Reports no additional musculoskeletal complaints, Denies back pain, Denies arthralgias, Denies joint swelling, Denies neck pain, Denies numbness and Denies tingling Integumentary/Breasts: Skin/Breast: Reports system reviewed and no additional complaints, except as docu and Denies rash Neurologic: Reports system reviewed and no additional complaints, except as documented, Denies dizziness, Denies headache(s), Denies numbness, Denies tingling and Denies weakness Endocrine: Endocrine: Reports fatigue PMFSH Past Medical History Medical History Acquired genu valgum of both knees Acute Crohn's disease ADHD (attention deficit hyperactivity disorder) Arthritis Depression Eczema Scoliosis Spondylosis of lumbosacral spine without myelopathy Surgical History History of arthroscopy of both knees History of esophagogastroduodenoscopy (EGD) Hx of colonoscopy Family History Family History Father No problems noted. Mother Hypertension Maternal Grandfather Diabetes Stroke Other Anemia Social History Social History (Updated 08/05/22 @ 09:21 by ANA LILIA Ingram) Household Members: Friend(s) Housing: Apartment Do you presently have visiting nurse or other home services: No Alcohol intake: never Patient Tobacco Use Status: Former Tobacco user Smoked in Last 30 Days: No e-Cigarette/Vaping Use: Never Used Second Hand Smoke Exposure: No Use of substances other than those prescribed or required for medical reasons: No Advance Directives: No Advance Directives Information Provided: No service: No Current occupational status: employed Current occupation: [employer] Cognitive needs: No Hearing needs: No Vision needs: No Physical Exam ED Vital Signs: Vital Signs - 24 hr 08/22/22 11:25 08/22/22 14:01 Temperature 97.9 F Pulse Rate 79 60 Respiratory Rate 18 16 Blood Pressure 127/81 123/76 Pulse Oximetry 100 100 Oxygen Delivery Method Room Air Room Air BMI result Body Mass Index 28.7 Const General: cooperative, healthy appearing, comfortable and no acute distress Orientation/consciousness: patient oriented x3 Limitations: no limitations HENMT Head: Yes normal to inspection Ears: hearing grossly normal bilaterally Eyes General: appearance normal, both eyes and all related structures Pupils: Equal, round and reactive pupils present Neck Neck: Yes normal visual inspection and Yes full ROM Chest Chest palpation & inspection: normal inspection of the chest Resp Effort & Inspection: normal respiratory effort Cardio Peripheral pulses: Peripheral pulses 2+ throughout GI Inspection: Yes normal to inspection Palpation (GI): Soft to palpation and nontender Auscultation: normal bowel sounds General: Yes no CVA tenderness Back/Spine/Pelvis Back: no CVA tenderness Thoracic/Lumbar Spine: thoracic and lumbar spine normal to inspection Skin General skin exam: no rashes or lesions noted Neuro General: patient oriented x3 and moves all extremities Cranial nerves: Yes Equal, round and reactive pupils present Cognition (Neuro): normal cognition Gait exam (Neuro): Normal gait present Course Course Course Narrative: RME- 27-year-old male past medical history significant for hypertension, Crohn disease followed by Dr. Khan presents for evaluation of diarrhea and fatigue. Patient was seen here 3 days ago for similar complaints. He was not treated with steroids, as it was not felt he had an acute Crohn's flare. The patient reports he followed up with Dr. Jaramillo it was ?given antibiotics. ? Denies any abdominal pain or bloody stool. Plan for labs, stool studies Reevaluation(s) Reevaluation #1: Labs are unremarkable. Abdomen nonfocal. Vitals are stable. Appears well hydrated. Will discharge home with GI follow-up. Reviewed worrisome signs and symptoms of when to return to the emergency room. Comfortable plan for discharge home Medical Decision Making Medical Decision Making [facility] Narrative: 27-year-old male with known Crohn's disease on into view effusions followed by GI presents the ER with intermittent non bloody diarrhea for the last few weeks and fatigue. Patient was seen in this emergency room on August 19 and has been taking Flagyl since August 19 with continued symptoms. He denies any associated blood in stools, vomiting, abdominal pain or fever. On exam patient with no focal abdominal pain. Overall nontoxic appearing Will check labs including inflammatory markers Patient has been on Flagyl for the last 3 days but no other risk factors for infectious diarrhea such as travel, sick contact, other use of antibiotics Will discuss with GI Differential Diagnosis Differential Diagnoses: The differential diagnosis associated with the pr esentation includes Crohn's flare Less likely acute abdomen Doubt obstruction Less likely infectious diarrhea Consult Healthcare Provider Management of the patient was discussed with: [facility] (Dr Solano)-spoke to GI on-call. Labs are unremarkable with no leukocytosis or elevation in inflammatory markers. Abdomen is soft and nontender. Patient overall nontoxic appearing. Appears well hydrated. Dr. Solano recommends continue Flagyl, Imodium if greater than 3 stools per day and follow-up next week with Dr. Khan and for scheduled enytvio ifusion. At this time she does not recommend imaging. Lab Data [facility] Lab Attestation statement: I reviewed the patient's lab results. 08/22/22 11:46 08/22/22 11:46 Labs: Lab Results 08/22/22 08/22/22 08/22/22 Range/Units 11:46 11:46 11:46 WBC 5.7 (4.8-10.8) X10*3/uL RBC 5.24 (4.60-5.80) X10*6/uL Hgb 15.5 (14.0-18.0) g/dl Hct 46.0 (42.0-52.0) % MCV 87.8 (80.0-98.0) fL MCH 29.6 (27.0-33.0) pg MCHC 33.7 (31.0-36.0) g/dl RDW 13.2 (11.0-16.0) % Plt Count 235 (160-400) X10*3/uL MPV 9.9 (9.4-12.4) fL Immature Gran % (Auto) 0.2 (0.0-0.4) % Neut % (Auto) 64.4 (45-73) % Lymph % (Auto) 26.0 (20-40) % [place] % (Auto) 7.7 (2-11) % Eos % (Auto) 1.4 (0-4) % Baso % (Auto) 0.3 (0-2) % Lymph # (Auto) 1.5 (1.2-4.9) X10*3/uL [place] # (Auto) 0.4 (0.1-1.2) X10*3/uL Eos # (Auto) 0.1 (0.0-0.4) X10*3/uL Baso # (Auto) 0.0 (0.0-0.2) X10*3/uL Abs Immat Gran (auto) 0.01 (0.00-0.03) X10*3/uL Absolute Neuts (auto) 3.7 (2.0-8.3) x10*3/uL Absolute Nucleated RBC 0.000 (0.0-0.012) X10*3/uL Nucleated RBC % (auto) 0.0 (0.0-0.2) /100WBC ESR 1 (0-15) MM/HR Sodium 144 (135-145) mmol/L Potassium 4.6 (3.3-5.1) mmol/L Chloride 107 (96-108) mmol/L Carbon Dioxide 29 (22-29) mmol/L Anion Gap 13 (12-20) BUN 14 (9-16) mg/dL Creatinine 0.92 (0.5-1.4) mg/dL Estim Creat Clear Calc 157.6 Estimated GFR > 60 Random Glucose 91 (60-115) mg/dL Calcium 9.6 (8.4-10.2) mg/dL Total Bilirubin 0.5 (0.0-1.0) mg/dL AST 21 (5-37) U/L ALT 22 (0-40) U/L Alkaline Phosphatase 72 (39-117) U/L C-Reactive Protein < 0.10 (< or = 0.50) mg/dL Total Protein 7.1 (6.5-8.0) g/dL Albumin 4.7 (3.5-5.0) g/dL Lipase 19 (8-78) U/L Urine Color Urine Appearance Urine pH (5.0-9.0) Ur Specific [place] (1.005-1.025) Urine Protein (Neg-Trace) mg/dL Urine Glucose (UA) (Negative) mg/dL Urine Ketones (Negative) mg/dL Urine Blood (Negative) Urine Nitrite (Negative) Ur Leukocyte Esterase (Negative) Urine RBC (0-2) /HPF Urine WBC (0-5) /HPF Ur Squamous Epith Cells (0-2) /HPF Urine Bacteria (None Seen) Hyaline Casts (0-2) /LPF 08/22/22 Range/Units 11:46 WBC (4.8-10.8) X10*3/uL RBC (4.60-5.80) X10*6/uL Hgb (14.0-18.0) g/dl Hct (42.0-52.0) % MCV (80.0-98.0) fL MCH (27.0-33.0) pg MCHC (31.0-36.0) g/dl RDW (11.0-16.0) % Plt Count (160-400) X10*3/uL MPV (9.4-12.4) fL Immature Gran % (Auto) (0.0-0.4) % Neut % (Auto) (45-73) % Lymph % (Auto) (20-40) % [place] % (Auto) (2-11) % Eos % (Auto) (0-4) % Baso % (Auto) (0-2) % Lymph # (Auto) (1.2-4.9) X10*3/uL [place] # (Auto) (0.1-1.2) X10*3/uL Eos # (Auto) (0.0-0.4) X10*3/uL Baso # (Auto) (0.0-0.2) X10*3/uL Abs Immat Gran (auto) (0.00-0.03) X10*3/uL Absolute Neuts (auto) (2.0-8.3) x10*3/uL Absolute Nucleated RBC (0.0-0.012) X10*3/uL Nucleated RBC % (auto) (0.0-0.2) /100WBC ESR (0-15) MM/HR Sodium (135-145) mmol/L Potassium (3.3-5.1) mmol/L Chloride (96-108) mmol/L Carbon Dioxide (22-29) mmol/L Anion Gap (12-20) BUN (9-16) mg/dL Creatinine (0.5-1.4) mg/dL Estim Creat Clear Calc Estimated GFR Random Glucose (60-115) mg/dL Calcium (8.4-10.2) mg/dL Total Bilirubin (0.0-1.0) mg/dL AST (5-37) U/L ALT (0-40) U/L Alkaline Phosphatase (39-117) U/L C-Reactive Protein (< or = 0.50) mg/dL Total Protein (6.5-8.0) g/dL Albumin (3.5-5.0) g/dL Lipase (8-78) U/L Urine Color Yellow Urine Appearance Clear Urine pH 6.5 (5.0-9.0) Ur Specific [place] <= 1.005 (1.005-1.025) Urine Protein Negative (Neg-Trace) mg/dL Urine Glucose (UA) Negative (Negative) mg/dL Urine Ketones Negative (Negative) mg/dL Urine Blood Negative (Negative) Urine Nitrite Negative (Negative) Ur Leukocyte Esterase Negative (Negative) Urine RBC 0-2 (0-2) /HPF Urine WBC 0-5 (0-5) /HPF Ur Squamous Epith Cells 0-2 (0-2) /HPF Urine Bacteria None Seen (None Seen) Hyaline Casts 0-2 (0-2) /LPF Discharge Plan Discharge Clinical Impression: Diarrhea Patient Disposition: Home, Self-Care Instructions: Acute Diarrhea (ED) Additional Instructions: You were given a lab slip for stool studies Please continue the Flagyl If having more than 3 episodes of diarrhea a day you may take Imodium Follow-up with Dr. Khan next week Prescriptions: No Action clonidine HCl 0.1 mg tablet 0.1 mg PO TID Qty: 270 1RF Entyvio 300 mg recon soln 300 mg IV Q2W 56 Days Qty: 1 8RF Rx Instructions: Infuse 300mg IV at week 0, 2, 6, then every 8 weeks maintainence dose metronidazole 500 mg tablet 500 mg PO TID 14 Days Qty: 42 0RF multivitamin Tablet 1 tab PO DAILY atomoxetine 25 mg capsule 1 cap PO QAM ibuprofen 600 mg tablet 600 mg PO Q8H PRN (Reason: pain) Qty: 14 0RF (DME) Blood Pressure Cuff Misc See Rx Instructions .ROUTE .MEDSUPPLY Qty: 1 0RF Rx Instructions: blood pressure checks daily and as needed large cuff please omeprazole 20 mg capsule,delayed release(DR/EC) 20 mg PO DAILY 14 Days Qty: 14 0RF sucralfate [Carafate] 100 mg/mL suspension 10 ml PO TID 30 Days Qty: 900 5RF lidocaine 4 % cream 1 appl topical QID PRN (Reason: pain) Qty: 50 4RF peg-electrolyte soln 420 gram recon soln 240 ml PO Q10M Qty: 4000 0RF Rx Instructions: until fecal effluent is clear; do not exceed a total volume of 2,000 mL Vyvanse 10 mg capsule 10 mg PO QAM Referrals: Sriram Khan MD [Physician] - 5 days Interventions: ED Discharge Assessment Last Done: 08/22/22 14:02 Discharge Date/Time: 08/22/22 14:04
[2022-08-22 11:53] LABS: MANUAL DIFF FLAG NO
[2022-08-22 11:56] LABS: Appearance Urine Clear; Basophils Percent Auto 0.3 % (0-2); Color Urine Yellow; Eosinophils Absolute Auto 0.1 X10*3/uL (0.0-0.4); Eosinophils Percent Auto 1.4 % (0-4); Glucose Urine UA Negative (Negative); Hemoglobin 15.5 g/dl (14.0-18.0); Imm Gran Abs Auto 0.01 X10*3/uL (0.00-0.03); Imm Gran Pct Auto 0.2 % (0.0-0.4); Leukocyte Esterase Urine Negative (Negative); Lymphocytes Absolute Auto 1.5 X10*3/uL (1.2-4.9); Mean Corpuscular HGB Conc 33.7 g/dl (31.0-36.0); Mean Corpuscular Hemoglobin 29.6 pg (27.0-33.0); Mean Corpuscular Volume 87.8 fL (80.0-98.0); Mean Platelet Volume 9.9 fL (9.4-12.4); Monocytes Absolute Auto 0.4 X10*3/uL (0.1-1.2); Monocytes Percent Auto 7.7 % (2-11); Neutrophils Absolute Auto 3.7 x10*3/uL (2.0-8.3); Neutrophils Percent Auto 64.4 % (45-73); Nitrite Urine Negative (Negative); PH 6.5 (5.0-9.0); Platelet Count 235 X10*3/uL (160-400); Red Blood Count 5.24 X10*6/uL (4.60-5.80); Red Cell Distribution Width 13.2 % (11.0-16.0); Specific Gravity - Urine <= 1.005 (1.005-1.025); Urine Blood Negative (Negative); Urine Ketones Negative (Negative); Urine Protein Negative (Neg-Trace); White Blood Count 5.7 X10*3/uL (4.8-10.8)
[2022-08-22 11:58] LABS: Bacteria Urine None Seen (None Seen); Hyaline Casts Urine 0-2 /LPF (0-2); RBC Urine 0-2 /HPF (0-2); Squamous Epithelial Cell Urine 0-2 /HPF (0-2); WBC Urine 0-5 /HPF (0-5)
[2022-08-22 12:17] LABS: Alanine Aminotransferase 22 U/L (0-40); Albumin Level 4.7 g/dL (3.5-5.0); Alkaline Phosphatase 72 U/L (39-117); Anion Gap 13 (12-20); Aspartate Amino Transferase 21 U/L (5-37); Bilirubin Total 0.5 mg/dL (0.0-1.0); Blood Urea Nitrogen 14 mg/dL (9-16); C Reactive Protein < 0.10 mg/dL (< or = 0.50); Calcium 9.6 mg/dL (8.4-10.2); Carbon Dioxide 29 mmol/L (22-29); Chloride 107 mmol/L (96-108); Creatinine Clr Calc Pharmacy 157.6; Estimated Glomerular Filt Rate > 60; Glucose Random 91 mg/dL (60-115); Lipase 19 U/L (8-78); Potassium 4.6 mmol/L (3.3-5.1); Sodium 144 mmol/L (135-145); Total Protein 7.1 g/dL (6.5-8.0)
[2022-08-22 12:35] LABS: Erythrocyte Sedimentation Rate 1 MM/HR (0-15)
--- NOTE | 2022-08-22 13:03 | PC.NURSE ---
Patient presents with diarrhea for the past 3 weeks, patient was prescribed flagyl 3 days ago for broad coverage as the provider is unsure what is causing the diarrhea. Patient presents for the persistent diarrhea and fatigue. Patient is calm and cooperative on stretcher, airway patent and patient is breathing evenly, no s/s of distress noted.
[2022-08-22 14:01] VITALS: BP 123/76; PULSE 60; RESP 16; O2SAT 100
== END 2022-08-22 14:04 | disposition home or self-care (01) ==
PROVIDERS: Physician Assistant; Emergency Provider Emergency Medicine; PCP Hospitalist
DX: R19.7 Diarrhea, unspecified (principal); Z79.899 Other long term (current) drug therapy
CPT/HCPCS: 36415; 80053; 81001; 83690; 85025; 85652; 86140; 99283; 99284

== ENCOUNTER 2022-08-24 11:31 | Outpatient (REF) | payer OTHER, SELFPAY ==
[2022-08-24 13:18] LABS: CDiff Gene PCR NEGATIVE (Negative)
[2022-09-02 19:23] LABS: Lactoferrin, Fecal, Quant. <6.25 mcg/mL (<7.25)
== END 2022-08-24 11:32 | disposition home or self-care (01) ==
LOC: HO.LNP 11:31
PROVIDERS: Visit Provider Internal Medicine Gastroenterology
DX: K51.50 Left sided colitis without complications (principal); R19.7 Diarrhea, unspecified
CPT/HCPCS: 83631; 87493

== ENCOUNTER 2022-09-04 07:01 | Outpatient (REF) | payer OTHER, SELFPAY | END 2022-09-04 07:02 | disposition home or self-care (01) | LOC: HO.MDS 07:01 | PROVIDERS: Visit Provider Internal Medicine Gastroenterology | DX: K50.90 Crohn's disease, unspecified, without complications (principal) | CPT/HCPCS: 96365; J3380 ==

== ENCOUNTER 2022-11-04 07:41 | Outpatient (REF) | payer OTHER, SELFPAY | END 2022-11-04 07:42 | disposition home or self-care (01) | LOC: HO.MDS 07:41 | PROVIDERS: Visit Provider Internal Medicine Gastroenterology | DX: K50.90 Crohn's disease, unspecified, without complications (principal) | CPT/HCPCS: 96365; J3380 ==

== ENCOUNTER 2022-11-23 09:33 | Outpatient (AMB) | payer OTHER, SELFPAY ==
--- NOTE | 2022-11-23 09:36 | A.OFFVIS_ITS ---
Intake Vital Signs 11/23/22 09:39 Height 6 ft 3 in Weight 230 lb BMI 28.7 BP 132/77 Blood Pressure Location Lt brachial Position Sitting Pulse 66 Intake Visit Reasons: 6 month fu Intake Note: Tyler presents in the office as a 6 month follow up. CC HE states that he is having stools that are mush like - he wants to know the status of the fatty liver. Beam Builder Required: No Allergies penicillin V Allergy (Intermediate, Verified 08/05/22 09:18) rash HPI 6 month fu HPI Details 27 yr old m w hx of crohns and non compliance being seen for f/u RECAP: Initially diagnosed with crohsn aged 17 I saw patient as inpatient consult 02/2021, had also seen him at [facility] where I use to work Pain was sudden onset in the mid abdomen and sharp and stabbing in nature.? It was at least 5/10 in severity with no relieving or exacerbating factors. He had no nausea or vomiting, had been passing normal colored stool without blood or melena. Not been using nsaids. No fever or chills, appetite had been good. he is not on any medication for crohns, had been on humira in past but stopped due to intolerance and was lost to follow up with GI thereafter, controlling his disease with diet. Labs significant for WBC count of 13.9, ALT of 49, CRP mildly raised CT with few mildly prominent fecalized small bowel loops in right lower quadrant with adjacent mesenteric stranding and small amount of free fluid suspicious for sequelae of small-bowel obstruction He was commenced on antibiotics and fluids I saw him again and commenced on entyvio he went to ED 11/2021--Ct scan with normal GI tract, no acute inflammation Stool PCR was pos for E coli He then missed the entyvio dose October 2021, and prior dose was 08/2021 so he was restarted on entyvio with re induction dosing MRe: 01/31-- normal EGD/colo: 05/04--internal hemorrhoids and erosive esophagitis --neg inflammation INTERIM: he has lost weight deliberately stools more mushy but formed, no blood no mouth ulcers or joint swelling he is v happy with the entyvio has v good fluid intake he has stopped PPI -he has no acid reflux sx he has poor sleep with early morn headaches EXAM: GENERAL: The patient is well developed and nontoxic. VITAL SIGNS:see workflow HEENT: Nonicteric sclerae, PERRLA, EOMI. Oropharynx clear. Moist mucous membranes. Conjunctivae appear well perfused. No thyroid mass. CHEST: Chest wall is nontender. HEART: Regular rate and rhythm without murmurs. LUNGS: Clear to auscultation bilaterally. ABDOMEN: Soft, positive bowel sounds,tender, no organomegaly.no flank tenderness SKIN: No rash, no excessive bruising, petechiae, or purpura. NEUROLOGIC: Cranial nerves II-XII intact without motor/sensory deficit. Psych: nml affect A/P: 1/ Crohns disease, good repsonse to entyvio 2/ erosive esophagitis, no sx now PLAN: 1/ cont with entyvio 2/ advised on vit D supplement 1000 units and multi vitamin 3/ repeat egd and colonoscopy for surveillance next year 4/ refer for sleep study [facility] Medical History Acquired genu valgum of both knees Acute Crohn's disease ADHD (attention deficit hyperactivity disorder) Arthritis Depression Eczema Scoliosis Spondylosis of lumbosacral spine without myelopathy Surgical History History of arthroscopy of both knees History of esophagogastroduodenoscopy (EGD) Hx of colonoscopy Family History Father No problems noted. Mother Hypertension Maternal Grandfather Diabetes Stroke Other Anemia Social History (Updated 08/05/22 @ 09:21 by ANA LILIA Ingram) Household Members: Friend(s) Housing: Apartment Do you presently have visiting nurse or other home services: No Alcohol intake: never Patient Tobacco Use Status: Former Tobacco user e-Cigarette/Vaping Use: Never Used Second Hand Smoke Exposure: No service: No Current occupational status: employed Current occupation: [employer] Cognitive needs: No Hearing needs: No Vision needs: No Physical Exam Vital Signs: Last Vital Signs Pulse 66 11/23/22 09:39 BP 132/77 11/23/22 09:39 BMI result Body Mass Index 28.7 Assessment & Plan Assessment & Plan (1) Crohn's disease: Code(s): K50.90 - Crohn's disease, unspecified, without complications Orders: Referrals Sleep Medicine Referral G47.33 - Obstructive sleep apnea (adult) (pediatric) Coding Level of Care Code Est Pt Level 3 (78099) Diagnoses Crohn's disease K50.90
[2022-11-23 09:39] VITALS: BP 132/77; PULSE 66; BMI 28.7
== END 2022-11-23 09:58 | disposition home or self-care (01) ==
PROVIDERS: PCP Hospitalist; Visit Provider Internal Medicine Gastroenterology
DX: K50.90 Crohn's disease, unspecified, without complications (principal)
CPT/HCPCS: 99213

== ENCOUNTER → 2022-11-23 09:33 | Outpatient (BNVA) | payer OTHER, SELFPAY | PROVIDERS: PCP Hospitalist; Visit Provider Internal Medicine Gastroenterology | DX: K50.90 Crohn's disease, unspecified, without complications (principal); Z91.148 Patient's other noncompliance with medication regimen for other reason | CPT/HCPCS: 99212 ==

== ENCOUNTER 2022-12-15 13:35 | Outpatient (REF) | payer OTHER, SELFPAY | END 2022-12-15 13:36 | disposition home or self-care (01) | LOC: HO.MDS 13:35 | PROVIDERS: Visit Provider Internal Medicine Gastroenterology | DX: K50.90 Crohn's disease, unspecified, without complications (principal) | CPT/HCPCS: 96365; J3380 ==

== ENCOUNTER 2022-12-26 01:39 | Emergency (ER) | payer OTHER, SELFPAY ==
--- NOTE | ~2022-12-26 | CT_ITS ---
EXAMINATION: CT ABDOMEN AND PELVIS WITH CONTRAST CLINICAL INFORMATION: Mid abdominal pain. History of bowel obstruction. COMPARISON: CT abdomen 07/08/2022 TECHNIQUE: Multidetector volumetric images were obtained from the superior aspect of the liver through the pubic symphysis following administration 85 mL of Omnipaque 350 intravenous contrast. Sagittal and coronal reformatted images were obtained on the technologist's workstation. Oral contrast: No This CT examination was performed using dose optimization techniques as appropriate, variously including the following: *Automated exposure control *Adjustment of mA and/or kV according to patient size (this includes techniques or standardized protocols for targeted exams where dose is matched to indication/reason for exam; i.e. extremities or head) *Use of iterative reconstruction technique DLP: 640 mGy-cm FINDINGS: LUNG BASES: The visualized lung bases are unremarkable. LIVER, GALLBLADDER, AND BILIARY TREE: The liver is normal in size, shape, and attenuation. No focal hepatic lesion or biliary ductal dilatation is present. Gallbladder appears unremarkable. No obvious pericholecystic inflammatory changes. PANCREAS: Unremarkable. No acute inflammatory changes. SPLEEN: Unremarkable. ADRENAL GLANDS: Unremarkable. KIDNEYS AND URETERS: The kidneys are normal in size, shape, and attenuation. No hydronephrosis, hydroureter, or calculi seen. No perinephric stranding. BLADDER: Unremarkable. GASTROINTESTINAL TRACT: Paucity of intra-abdominal fat limiting evaluation. The stomach is partially distended. Apparent prominence of the wall of the stomach, could be related to lack of distention, gastritis cannot be excluded. There are small bowel loops in the right abdomen and right lower quadrant, which has intraluminal fluid, asymmetrically distended as compared to the remainder of the bowel loops, measuring up to approximately 2.6 cm. No proximal small bowel dilatation is seen. Moderate volume stool in the large colon. No pericolonic inflammatory changes seen. The appendix is not clearly visualized. No obvious inflammatory changes evident in the pericecal region. No free fluid. No free air. ABDOMINAL WALL: No significant hernia is appreciated. LYMPH NODES: No lymphadenopathy seen. VASCULAR: Normal caliber aorta. Portal vein is enhancing. PELVIC VISCERA: Unremarkable. OSSEOUS STRUCTURES: No acute or suspicious osseous abnormality. CT/CT abdomen pelvis w IV con IMPRESSION: 1. Fluid-filled bowel loops in the right abdomen, right lower quadrant, which are asymmetrically more prominent as compared to the remainder of the bowel loops. Findings are nonspecific. Differential consideration include ileus, with evolving small bowel obstruction cannot be excluded. Recommend clinical correlation and follow-up.. Consider short-term follow-up abdominal radiographs, follow-up CT for reassessment as clinically warranted. 2. Limited evaluation of the stomach. Apparent wall prominence of the stomach, could be related to lack of distention, gastritis not excluded. Fleischner guidelines were followed.
[2022-12-26 01:58] VITALS: BP 138/92; PULSE 64; RESP 18; TEMP 36.6; O2SAT 100; BMI 28.7
[2022-12-26 02:17] LABS: MANUAL DIFF FLAG NO
[2022-12-26 02:19] LABS: Basophils Percent Auto 0.4 % (0-2); Eosinophils Absolute Auto 0.1 X10*3/uL (0.0-0.4); Eosinophils Percent Auto 1.4 % (0-4); Hematocrit 48.4 % (42.0-52.0); Hemoglobin 16.2 g/dl (14.0-18.0); Imm Gran Abs Auto 0.02 X10*3/uL (0.00-0.03); Imm Gran Pct Auto 0.2 % (0.0-0.4); Lymphocytes Absolute Auto 1.8 X10*3/uL (1.2-4.9); Lymphocytes Percent Auto 21.7 % (20-40); Mean Corpuscular HGB Conc 33.5 g/dl (31.0-36.0); Mean Corpuscular Hemoglobin 29.6 pg (27.0-33.0); Mean Corpuscular Volume 88.5 fL (80.0-98.0); Mean Platelet Volume 9.9 fL (9.4-12.4); Monocytes Absolute Auto 0.6 X10*3/uL (0.1-1.2); Monocytes Percent Auto 6.8 % (2-11); Neutrophils Absolute Auto 5.8 x10*3/uL (2.0-8.3); Neutrophils Percent Auto 69.5 % (45-73); Platelet Count 217 X10*3/uL (160-400); Red Blood Count 5.47 X10*6/uL (4.60-5.80); Red Cell Distribution Width 12.7 % (11.0-16.0); White Blood Count 8.4 X10*3/uL (4.8-10.8)
[2022-12-26 02:32] LABS: Anion Gap 12 (12-20); Blood Urea Nitrogen 17 mg/dL (9-16); Calcium 9.5 mg/dL (8.4-10.2); Carbon Dioxide 28 mmol/L (22-29); Chloride 106 mmol/L (96-108); Creatinine Clr Calc Pharmacy 140.8; Estimated Glomerular Filt Rate > 60; Glucose Random 96 mg/dL (60-115); Potassium 4.1 mmol/L (3.3-5.1); Sodium 142 mmol/L (135-145)
[2022-12-26 05:01] VITALS: RESP 14
[2022-12-26 05:10] LABS: Appearance Urine Clear; Color Urine Yellow; Glucose Urine UA Negative (Negative); Leukocyte Esterase Urine Negative (Negative); Nitrite Urine Negative (Negative); Specific Gravity - Urine 1.025 (1.005-1.025); Urine Blood Negative (Negative); Urine Ketones Negative (Negative); Urine Protein Negative (Neg-Trace)
[2022-12-26 06:40] VITALS: BP 118/69; PULSE 66; RESP 14; TEMP 37.1; O2SAT 98
[2022-12-26 07:15] LABS: Alanine Aminotransferase 19 U/L (0-40); Albumin Level 4.7 g/dL (3.5-5.0); Alkaline Phosphatase 72 U/L (39-117); Aspartate Amino Transferase 17 U/L (5-37); Bilirubin Direct 0.2 mg/dL (0.0-0.5); Bilirubin Total 0.3 mg/dL (0.0-1.0); Lipase 20 U/L (8-78); Total Protein 7.5 g/dL (6.5-8.0)
[2022-12-26] MEDS: 0.9 % Sodium Chloride 1,000 ML 999 ML IV (07:25)
--- NOTE | 2022-12-26 07:28 | ED_ITS ---
HPI - Abdominal Pain General Chief Complaint: Abdominal Pain Stated Complaint: Abdominal Pain Time Seen by Provider: 12/26/22 06:41 Source: patient Mode of arrival: ambulatory Limitations: no limitations History of Present Illness HPI narrative: Patient is a 27-year-old male who presents to emergency department for evaluation of abdominal pain onset approximately 12 hours prior. Is predominantly localized to the mid abdomen, around the umbilicus in epigastric region. Reports history of similar pain in the past which was attributed to bowel obstruction due to his Crohn's disease. He denies associated nausea, vomiting, diarrhea, hematochezia, melena, fevers, chills. Reports mild constipation with last bowel movement couple of days ago. Related Data Home Medications Medication Instructions Recorded Confirmed multivitamin 1 tab PO DAILY 02/25/21 05/06/22 atomoxetine 25 mg capsule 1 cap PO QAM 08/13/21 05/06/22 Previous Rx's Medication Instructions Recorded miscellaneous medical supply #1 ea 06/04/21 (Blood Pressure Cuff) omeprazole 20 mg capsule,delayed 20 mg PO DAILY 14 days #14 caps 12/08/21 release clonidine HCl 0.1 mg tablet 0.1 mg PO TID #270 tabs 12/17/21 lidocaine 4 % topical cream 1 appl topical QID PRN pain #50 01/14/22 grams vedolizumab 300 mg intravenous 300 mg IV Q2W 8 weeks #1 ea 05/09/22 solution (Entyvio) ibuprofen 600 mg tablet 600 mg PO Q8H PRN pain #14 tabs 07/16/22 metronidazole 500 mg tablet 500 mg PO TID 14 days #42 tabs 08/19/22 Allergies Allergy/AdvReac Type Severity Reaction Status Date / Time penicillin V Allergy Intermediate rash Verified 08/05/22 09:18 Review of Systems Review of Systems Constitutional : No Weight loss, No Fever, No Chills ENT/Mouth :? No sore throat, No Rhinorrhea Eyes: No Swelling, No Redness Cardiovascular : No Chest Pain, No SOB, No Edema Respiratory : No Cough, No Sputum, No Wheezing Gastrointestinal : No Nausea, No Vomiting, No Diarrhea, positive abdominal pain, No Hematochezia, No Melena Genitourinary : No Dysuria, No Urinary Frequency, No Hematuria, No Urgency? Musculoskeletal : No joint pain, No Myalgias, No Joint Swelling Skin : No Skin Lesions, No rash Neuro : No Weakness, No Numbness, No Dizziness, No Headache Psych : No Anxiety/Panic, No Depression Heme/Lymph: No Bruising, No Lymphadenopathy Endocrine : No Polyuria, No Polydipsia Yes all other systems are reviewed and are negative [facility]LY [facility] Past Medical History Attestation statement: The following information was validated with the patient. 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 Mother Hypertension Maternal Grandfather Diabetes Stroke Other Anemia Social History Social History (Updated 08/05/22 @ 09:21 by Nikki Salamanca Jerry) Household Members: Friend(s) Housing: Apartment Do you presently have visiting nurse or other home services: No Alcohol intake: never Patient Tobacco Use Status: Former Tobacco user Smoked in Last 30 Days: No e-Cigarette/Vaping Use: Never Used Second Hand Smoke Exposure: No Use of substances other than those prescribed or required for medical reasons: No Advance Directives: No Advance Directives Information Provided: No service: No Current occupational status: employed Current occupation: [employer] Cognitive needs: No Hearing needs: No Vision needs: No Physical Exam ED Vital Signs: Vital Signs - 24 hr 12/26/22 01:58 12/26/22 05:01 12/26/22 06:40 Temperature 97.8 F 98.7 F Pulse Rate 64 66 Respiratory Rate 18 14 14 Blood Pressure 138/92 H 118/69 Pulse Oximetry 100 98 Oxygen Delivery Method Room Air Room Air 12/26/22 12:36 Temperature Pulse Rate 53 Respiratory Rate 18 Blood Pressure 125/79 Pulse Oximetry 100 Oxygen Delivery Method Room Air BMI result Body Mass Index 28.7 Appearance: Alert.?Oriented to person, place and time. No acute distress.?Normal affect. Eyes: Pupils equal, round and reactive to light.? ENT: Pharynx normal.?? Neck: Normal inspection.? Neck supple.?? CVS: Heart sounds normal. Normal heart rate and rhythm.? Pulses normal.?? Respiratory: No respiratory distress.? Lung sounds clear to auscultation bilaterally?? Abdomen: Soft with tenderness over the RLQ and epigastrium/umbilical region. No rigidity. No guarding. Normoactive bowel sounds. No pulsatile mass.?? Skin: Skin warm and dry.? Normal skin color.? Extremities: No lower extremity edema.? Neuro: Moves all extremities spontaneously. Sensation intact bilaterally. CN II- XII intact. No focal neuro deficits. Ambulates with normal steady gait. Course Reevaluation(s) Reevaluation #1: CBC reveals no evidence of leukocytosis or anemia. CMP is overall unremarkable, lipase is within normal limits. Urinalysis is without evidence of infection or microscopic hematuria. ESR and CRP are within normal limits. CT revealing fluid-filled bowel loops in the right lower quadrant which is asymmetric and prominent to remainder of bowel loops, differential to include ileus versus a balding small bowel obstruction, in addition there is apparent wall prominence of the stomach which may be due to lack of distension but gastritis cannot be excluded. A consult to General surgery on-call; Dr. Rios, who recommends repeat CT imaging with oral contrast and/or small bowel follow- through. I additionally called and spoke with the radiologist; Dr. Smith regarding interpretation of the CT imaging, when asked there is no identifiable transition point appreciated on the scan to suggest SBO. I had planned to obtain a small bowel follow through as per general surgery recommendation, however was advised by Radiology that the service would be unavailable over the weekend as we did not have coverage. aside from pain he clinically does not appear to have a small-bowel obstruction is is without nausea or vomiting. I will consult with Gastroenterology, Dr. Miranda, to determine whether treatment with prednisone at this time would be of benefit for patient, although he does have normal inflammatory markers Time: 11:28 Reevaluation #2: I spoke with Dr. Miranda, who does not recommend treatment with prednisone at this time, does recommend hospital admission for observation and consideration of repeat CT scan in 24 hours. Will consult hospitalist service for admission to medicine Time: 12:50 Reevaluation #3: patient has had resolution of pain at this time. Upon abdominal examination there is no longer any tenderness. Hospitalist Aida MOHAN came to bedside to evaluate patient, who recommends p.o. trial And if tolerant, outpatient follow- up with PCP/GI and strict return precautions. Time: 13:30 Additional Reevaluation(s): 14:30 patient has tolerated gingerale in the turkey [place] without complication. Continues to deny any pain. At this time feel that he is stable for discharge home. Discussed strict return precautions and outpatient follow- up. Medical Decision Making Medical Decision Making MDM Narrative: Patient is a 27-year-old male with past medical history of ADHD, scoliosis, eczema, arthritis, depression, Crohn's who presents emergency department for evaluation of abdominal pain. Overall he is well-appearing, nontoxic, afebrile. Offered pain medication at this time however he declines, pain is currently 6/10. Will obtain CBC to evaluate for leukocytosis/ anemia, CMP and lipase to evaluate for abnormal electrolytes /abnormal renal function/ abnormal hepatic/biliary function, CT of the abdomen and pelvis, and Urinalysis. in February of 2021 patient was admitted to the hospital for small-bowel obstruction thought likely secondary to Crohn's disease that did not require surgical intervention. Differential Diagnosis Differential Diagnoses: The differential diagnosis associated with the presentation includes ( bowel obstruction, gastritis, cholecystitis, pancreatitis, appendicitis, diverticulitis) Admission/Observation Consideration of admission/observation: Escalation of care including admission/observation considered ( I considered admission for abdominal pain, see course narrative for further detail) Consult Healthcare Provider Management of the patient was discussed with: Hospitalist ( see course narrative for further detail) and Jewelry Repairer ( see course narrative for further detail) Lab Data [facility] Lab Attestation statement: I reviewed the patient's lab results. ( see course narrative for further detail) 12/26/22 02:14 12/26/22 02:13 Labs: Lab Results 12/26/22 12/26/22 12/26/22 Range/Units 02:13 02:14 05:04 WBC 8.4 (4.8-10.8) X10*3/uL RBC 5.47 (4.60-5.80) X10*6/uL Hgb 16.2 (14.0-18.0) g/dl Hct 48.4 (42.0-52.0) % MCV 88.5 (80.0-98.0) fL MCH 29.6 (27.0-33.0) pg MCHC 33.5 (31.0-36.0) g/dl RDW 12.7 (11.0-16.0) % Plt Count 217 (160-400) X10*3/uL MPV 9.9 (9.4-12.4) fL Immature Gran % (Auto) 0.2 (0.0-0.4) % Neut % (Auto) 69.5 (45-73) % Lymph % (Auto) 21.7 (20-40) % [place] % (Auto) 6.8 (2-11) % Eos % (Auto) 1.4 (0-4) % Baso % (Auto) 0.4 (0-2) % Lymph # (Auto) 1.8 (1.2-4.9) X10*3/uL [place] # (Auto) 0.6 (0.1-1.2) X10*3/uL Eos # (Auto) 0.1 (0.0-0.4) X10*3/uL Baso # (Auto) 0.0 (0.0-0.2) X10*3/uL Abs Immat Gran (auto) 0.02 (0.00-0.03) X10*3/uL Absolute Neuts (auto) 5.8 (2.0-8.3) x10*3/uL Absolute Nucleated RBC 0.000 (0.0-0.012) X10*3/uL Nucleated RBC % (auto) 0.0 (0.0-0.2) /100WBC ESR 1 (0-15) MM/HR Sodium 142 (135-145) mmol/L Potassium 4.1 (3.3-5.1) mmol/L Chloride 106 (96-108) mmol/L Carbon Dioxide 28 (22-29) mmol/L Anion Gap 12 (12-20) BUN 17 H (9-16) mg/dL Creatinine 1.03 (0.5-1.4) mg/dL Estim Creat Clear Calc 140.8 Estimated GFR > 60 Random Glucose 96 (60-115) mg/dL Calcium 9.5 (8.4-10.2) mg/dL Total Bilirubin 0.3 (0.0-1.0) mg/dL Direct Bilirubin 0.2 (0.0-0.5) mg/dL AST 17 (5-37) U/L ALT 19 (0-40) U/L Alkaline Phosphatase 72 (39-117) U/L C-Reactive Protein < 0.10 (< or = 0.50) mg/dL Total Protein 7.5 (6.5-8.0) g/dL Albumin 4.7 (3.5-5.0) g/dL Lipase 20 (8-78) U/L Urine Color Yellow Urine Appearance Clear Urine pH 6.0 (5.0-9.0) Ur Specific [place] 1.025 (1.005-1.025) Urine Protein Negative (Neg-Trace) mg/dL Urine Glucose (UA) Negative (Negative) mg/dL Urine Ketones Negative (Negative) mg/dL Urine Blood Negative (Negative) Urine Nitrite Negative (Negative) Ur Leukocyte Esterase Negative (Negative) Radiology Impression Discussion of test interpretation with radiology: I discussed test interpretation with the radiologist ( See course narrative for further detail) and I have reviewed the radiologist's reading. Radiologist Impression: CT/CT abdomen pelvis w IV con IMPRESSION: 1. Fluid-filled bowel loops in the right abdomen, right lower quadrant, which are asymmetrically more prominent as compared to the remainder of the bowel loops. Findings are nonspecific. Differential consideration include ileus, with evolving small bowel obstruction cannot be excluded. Recommend clinical correlation and follow-up.. Consider short-term follow-up abdominal radiographs, follow-up CT for reassessment as clinically warranted. 2. Limited evaluation of the stomach. Apparent wall prominence of the stomach, could be related to lack of distention, gastritis not excluded. External Record Review External record reviewed: Inpatient record ( February 2021) and Outpatient record Prescription Management I considered prescription management with: Other ( See course narrative for further detail) Medications Administered Discontinued Medications Generic Name Dose Route Start Last Admin Trade Name Freq PRN Reason Stop Dose Admin Sodium Chloride 1,000 mls @ 999 mls/hr 12/26/22 07:00 12/26/22 10:45 Ns IV 12/26/22 08:00 Infused .Q1H1M GAGE Infusion Iohexol 85 ml 12/26/22 07:42 12/26/22 07:43 Iohexol 350 Mg/Ml 100 Ml Infus..Btl IV 12/26/22 07:43 85 ml ONCE ONE Administration Discharge Plan Discharge Clinical Impression: Abdominal pain Patient Disposition: Home, Self-Care Instructions: Abdominal Pain (ED) Additional Instructions: You were able to tolerate eating and drinking in the emergency department without worsening of pain at nausea or vomiting. This is very reassuring. If you develop new symptoms or worsening pain pelase return back for re-evaluation. Please contact your primary care provider/ GI provider arrange for outpatient follow-up within 3 days. Prescriptions: No Action clonidine HCl 0.1 mg tablet 0.1 mg PO TID Qty: 270 1RF Entyvio 300 mg recon soln 300 mg IV Q2W 56 Days Qty: 1 8RF Rx Instructions: Infuse 300mg IV at week 0, 2, 6, then every 8 weeks maintainence dose metronidazole 500 mg tablet 500 mg PO TID 14 Days Qty: 42 0RF multivitamin Tablet 1 tab PO DAILY atomoxetine 25 mg capsule 1 cap PO QAM ibuprofen 600 mg tablet 600 mg PO Q8H PRN (Reason: pain) Qty: 14 0RF (DME) Blood Pressure Cuff Misc See Rx Instructions .ROUTE .MEDSUPPLY Qty: 1 0RF Rx Instructions: blood pressure checks daily and as needed large cuff please omeprazole 20 mg capsule,delayed release(DR/EC) 20 mg PO DAILY 14 Days Qty: 14 0RF lidocaine 4 % cream 1 appl topical QID PRN (Reason: pain) Qty: 50 4RF Referrals: Shakira Higgins NP [Primary Care Provider] -
[2022-12-26] MEDS: iohexoL 350 MG/ML 100 ML INFUS..BTL 85 ML IV (07:43)
[2022-12-26 08:32] LABS: C Reactive Protein < 0.10 mg/dL (< or = 0.50)
[2022-12-26 09:04] LABS: Erythrocyte Sedimentation Rate 1 MM/HR (0-15)
--- NOTE | 2022-12-26 11:48 | MHC.EDTECH ---
Called [facility] @ 11:45am for PAT Watson
[2022-12-26 12:36] VITALS: BP 125/79; PULSE 53; RESP 18; O2SAT 100
== END 2022-12-26 15:23 | disposition home or self-care (01) ==
PROVIDERS: Nurse Practitioner Family; Emergency Provider Student in an Organized Health Care Education/Training Program; PCP Hospitalist
DX: R10.9 Unspecified abdominal pain (principal); M41.9 Scoliosis, unspecified; F90.9 Attention-deficit hyperactivity disorder, unspecified type; K50.90 Crohn's disease, unspecified, without complications
CPT/HCPCS: 36415; 74177; 80048; 80076; 81003; 83690; 85025; 85652; 86140; 96360; 96361; 99284; Q9967

== ENCOUNTER 2022-12-31 14:39 | Outpatient (AMB) | payer OTHER, SELFPAY ==
--- NOTE | 2022-12-31 14:57 | A.OFFVIS_ITS ---
Intake Vital Signs 12/31/22 14:58 Height 6 ft 3 in Weight 229 lb 8 oz BMI 28.7 BP 128/74 Blood Pressure Location Rt brachial Position Sitting Pulse 96 Pulse Source Pulse Oximeter Pulse Oximetry (%) 100 Oxygen Delivery Method Room Air Intake Visit Reasons: INP-CARLA - Confirmed Intake Note: Pt presents today for sleep apnea eval Allergies penicillin V Allergy (Intermediate, Verified 12/31/22 15:00) rash Medication List - Last Reconciled 12/31/22 by Elissa Mackey CNP clonidine HCl 0.1 mg PO TID ibuprofen 600 mg PO Q8H PRN lidocaine 4% 1 appl topical QID PRN lisdexamfetamine (Vyvanse) 10 mg PO DAILY miscellaneous medical supply (Blood Pressure Cuff) blood pressure checks daily and as needed large cuff please multivitamin 1 tab PO DAILY vedolizumab (Entyvio) 300 mg IV Q2W 8 weeks HPI HPI Comments History of Present Illness Details 27 y/o male patient presents for new in- person visit for sleep consultation. Pt reports snoring and disrupted sleep. He wakes up gasping and feels chocking. He does not have difficulty falling asleep but having difficulty staying sleep. He wakes up almost every 2-3 hours. Pt reports daytime sleepiness and difficulty focusing. He is on Vyvanse 10 mg daily for ADHD. He also uses pre-workout energy drink in the morning to stay awake. He tried PSG sleep study in the past, but could not sleep, and it was inconclu sive. He lost about more than 100 lb over the last year. Sleep questionnaire: Have you ever been diagnosed with a sleep disorder? No. Have you ever had a sleep study in the past? Yes, but it was inconclusive. Have you ever been treated for a sleep disorder? No. Do you take medications for a sleep disorder? No. Do you snore? Yes. Do you wake up gasping at night? Yes. Do you have episodes of apneas? No. If yes, are they witnessed? No. Do you have episodes of nocturnal chest pain or dyspnea? Yes. Do you have difficulty initiating sleep? No. Do you have difficulty maintaining sleep? Yes. Do you wake up tired? Yes. Do you have headaches upon awakening? Yes, tension headache. Do you wake up with dry mouth or throat? Yes. Do you have GERD? No. Do you have nocturia? Yes, Do you have nocturnal leg cramps? No. Do you have symptoms of restless legs? Yes. Do you act out your dreams? No. Sleep hygiene questionnaire: What is your usual sleep routine? Usual bedtime is at 9 am; Usual wake up time is at 5 am. Do you take naps? Sometimes. Is your sleep environment cool, dark, and quiet? Yes. Do you exercise? Yes. Do you take caffeine or other stimulants? Yes. Do you use electronics in bed? Yes. What is your work schedule? 6 am to 2 pm Hypersomnolence questionnaire: Do you have daytime tiredness or fatigue? Yes. Do you easily fall asleep when inactive? Yes. Have you ever had episodes of sudden weakness? No. Have you ever had episodes of sudden weakness associated with strong emotions? No. 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 Mother Hypertension Maternal Grandfather Diabetes Stroke Other Anemia Social History Household Members: Friend(s) Housing: Apartment Do you presently have visiting nurse or other home services: No Alcohol intake: never Patient Tobacco Use Status: Former Tobacco user e-Cigarette/Vaping Use: Never Used Second Hand Smoke Exposure: No service: No Current occupational status: employed Current occupation: [employer] Cognitive needs: No Hearing needs: No Vision needs: No Questionnaire [place] Sleepiness Scale Questions Sitting and reading: high chance of dozing Watching TV: moderate chance of dozing Sitting inactive in a theater, movie etc.: moderate chance of dozing As a passenger in a car for an hour without break: slight chance of dozing Lying down in the afternoon when circumstances permit: high chance of dozing Sitting and talking to someone: slight chance of dozing Sitting quietly after lunch without alcohol: moderate chance of dozing In a car, while stopped for a few minutes in the traffic: slight chance of dozing ESS < 10: normal, ESS > 12: pathologic: 15 Review of Systems Const All systems reviewed & are unremarkable except as noted in HPI and below ENT Reports Normal hearing present Neuro Reports Normal hearing present Physical Exam Vital Signs: Last Vital Signs Pulse 96 12/31/22 14:58 BP 128/74 12/31/22 14:58 Pulse Ox 100 12/31/22 14:58 Oxygen Delivery Method Room Air 12/31/22 14:58 BMI result Body Mass Index 28.7 Const General: cooperative and tired appearing Nutritional Appearance: overweight Orientation/consciousness: patient oriented x3 Neck Neck: Yes full ROM and Yes supple Resp Effort & Inspection: normal respiratory effort and able to speak in complete sentences Neuro General: patient oriented x3 and gait normal Cranial nerves: Yes Bilaterally intact EOM present, Yes Normal facial strength present, Yes Midline tongue present, Yes Symmetric palate elevation present, Yes Normal hearing present and Yes Ability to bilaterally rotate head present Psych Appearance: grossly normal Mental Status: mental status grossly normal Speech and movement: Normal speech and movement present Affect: normal affect Attitude: cooperative Assessment & Plan Assessment & Plan (1) Daytime hypersomnia: Code(s): G47.10 - Hypersomnia, unspecified (2) CARLA (obstructive sleep apnea): Code(s): G47.33 - Obstructive sleep apnea (adult) (pediatric) Plan Pt is advised to undergo home sleep study to assess for sleep apnea. Will f/u with pt after study to discuss results and appropriate treatment options. Sleep hygiene education provided. Advised patient to limit electronic use, and caffeine intake in the evening. Pt to call with any worsening concerns or questions. Orders: Orders RT home sleep study Today G47.10 - Hypersomnia, unspecified, G47.33 - Obstructi ve sleep apnea (adult) (pediatric) Coding Level of Care Code New Pt Level 4 (52815) Diagnoses Daytime hypersomnia G47.10 CARLA (obstructive sleep apnea) G47.33
[2022-12-31 14:58] VITALS: BP 128/74; PULSE 96; O2SAT 100; BMI 28.7
== END 2022-12-31 15:38 | disposition home or self-care (01) ==
PROVIDERS: PCP Hospitalist; Visit Provider Nurse Practitioner Family
DX: G47.10 Hypersomnia, unspecified (principal); G47.33 Obstructive sleep apnea (adult) (pediatric)
CPT/HCPCS: 99204

== ENCOUNTER → 2022-12-31 14:39 | Outpatient (BNVA) | payer OTHER, SELFPAY | PROVIDERS: PCP Hospitalist; Visit Provider Nurse Practitioner Family ==

== ENCOUNTER 2023-01-25 10:05 | Emergency (ER) | payer OTHER, SELFPAY ==
--- NOTE | ~2023-01-25 | XR_ITS ---
EXAMINATION: XR HIP, RIGHT CLINICAL INFORMATION: Right hip pain. COMPARISON: CT abdomen and pelvis 12/26/2022. TECHNIQUE: Two views of the right hip. FINDINGS: No fracture. Alignment is anatomic. Hip joint space is maintained. Soft tissues are unremarkable. XR/XR hip RT w PEL1V IMPRESSION: Unremarkable right hip.
[2023-01-25 10:13] VITALS: BP 145/87; PULSE 64; RESP 16; TEMP 36.8; O2SAT 99; BMI 29.5
--- NOTE | 2023-01-25 11:23 | ED.LOWEXIN ---
HPI - Extremity Injury (Lower) General Chief Complaint: Extremity Injury, Lower Stated Complaint: r hip pain Time Seen by Provider: 01/25/23 11:17 Source: patient, RN notes reviewed and old records reviewed Mode of arrival: ambulatory History of Present Illness HPI Narrative: 27-year-old male with a past medical history of CARLA, HTN, Crohn's disease, ADHD, scoliosis, depression, presenting to the ED complaining of atraumatic right hip pain x1 week. Admits to similar symptoms in the past however in his knees with known history of arthritis. Reports a lot of physical activity at work, denies known injury/trauma or fall. Also reports migraine headache, reports history of migraines, this headache is typical of priors. Headache non maximal at onset. Denies numbness, tingling, weakness, abdominal pain Related Data Home Medications Medication Instructions Recorded Confirmed multivitamin 1 tab PO DAILY 02/25/21 12/31/22 lisdexamfetamine 10 mg capsule 10 mg PO DAILY 12/31/22 12/31/22 (Vyvanse) Previous Rx's Medication Instructions Recorded miscellaneous medical supply #1 ea 06/04/21 (Blood Pressure Cuff) clonidine HCl 0.1 mg tablet 0.1 mg PO TID #270 tabs 12/17/21 lidocaine 4 % topical cream 1 appl topical QID PRN pain #50 01/14/22 grams vedolizumab 300 mg intravenous 300 mg IV Q2W 8 weeks #1 ea 05/09/22 solution (Entyvio) ibuprofen 600 mg tablet 600 mg PO Q8H PRN pain #14 tabs 07/16/22 acetaminophen 500 mg tablet 500 mg PO Q6H PRN fever or pain 01/25/23 (Tylenol Extra Strength) #14 tabs naproxen 500 mg tablet 500 mg PO BID PRN pain 10 days #20 01/25/23 tabs Allergies Allergy/AdvReac Type Severity Reaction Status Date / Time penicillin V Allergy Intermediate rash Verified 12/31/22 15:00 Review of Systems Review of Systems: Constitutional: No Fever, No Chills ENT/Mouth: No Ear Pain, No Nasal Congestion, No sore throat, No Rhinorrhea, No Swallowing Difficulty Cardiovascular: No Chest Pain, No SOB Respiratory: No Cough Gastrointestinal: No Nausea, No Vomiting, No Abdominal pain Genitourinary: No Dysuria, No Urinary Frequency, No Hematuria, No Urinary Incontinence/retention, No Flank Pain Musculoskeletal: + joint pain, No Myalgias, No Joint Swelling Skin: No Skin Lesions, No rash Neuro: No Weakness, No Numbness, No Paresthesias, +LOVE Yes all other systems are reviewed and are negative Constitutional: Constitutional: Reports as per HPI Neurologic: Denies Abnormal speech present [facility] Past Medical History Attestation statement: The following information was validated with the patient. 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 Mother Hypertension Maternal Grandfather Diabetes Stroke Other Anemia Social History Social History Household Members: Friend(s) Housing: Apartment Do you presently have visiting nurse or other home services: No Alcohol intake: never Patient Tobacco Use Status: Former Tobacco user e-Cigarette/Vaping Use: Never Used Second Hand Smoke Exposure: No Advance Directives: No service: No Current occupational status: employed Current occupation: [employer] Cognitive needs: No Hearing needs: No Vision needs: No Physical Exam Vital Signs: Vital Signs: Last Vital Signs Temp 98.2 F 01/25/23 10:13 Pulse 64 01/25/23 10:13 Resp 16 01/25/23 10:13 BP 145/87 H 01/25/23 10:13 Pulse Ox 99 01/25/23 10:13 O2 Del Method Room Air 01/25/23 10:13 BMI result Body Mass Index 29.5 Const: General: cooperative, healthy appearing and no acute distress Orientation/consciousness: patient oriented x3 Limitations: no limitations HEENT: Head: Yes normal to inspection and Yes atraumatic Ears: hearing grossly normal bilaterally General nose exam: Normal external nose present Face and sinus: Yes normal facial exam Eyes: General: appearance normal, both eyes and all related structures EOM: EOMs intact bilaterally Neck: Neck: Yes normal visual inspection and Yes no meningeal signs Resp: Effort & Inspection: normal respiratory effort and no respiratory distress Cardio: Rate: regular rate GI: Inspection: Yes normal to inspection Palpation (GI): Soft to palpation, nontender, no guarding and not rigid Skin: Rashes: no rashes Wounds: no wounds Neuro: General: patient oriented x3, gait normal, tone normal, moves all extremities, no meningeal signs, no focal motor deficits and CN's II-XI intact bilaterally Cranial nerves: Yes CN's II-XII intact bilaterally Cognition (Neuro): normal cognition Speech: No Abnormal speech present Gait exam (Neuro): Normal gait present Motor exam (neuro): 5/5 motor strength present throughout Extrem: Other: Pelvis stable. Right hip without noted deformity. Mild tenderness. Pain elicited with internal rotation. Full range of motion intact with some discomfort. Neurovascular intact distally. No erythema/warmth or crepitus General: Yes normal to inspection Course Course Course Narrative: XR hip RT w PEL1V IMPRESSION: Unremarkable right hip. Results discussed with patient including worrisome signs and symptoms and strict return precautions, and when to return to the emergency department. They verbalized understanding and feel safe for discharge at this time. Medications Administered Discontinued Medications Generic Name Dose Route Start Last Admin Trade Name Freq PRN Reason Stop Dose Admin Acetaminophen/Butalbital/Caffeine 1 tab 01/25/23 11:29 01/25/23 11:54 Butalb/Acetamin/Caff 50/325/40 Tablet PO 01/25/23 11:30 1 tab ONCE ONE Administration Ketorolac Tromethamine 30 mg 01/25/23 11:29 01/25/23 11:54 Ketorolac Tromethamine 30 Mg/Ml Vial IM 01/25/23 11:30 30 mg ONCE ONE Administration Medical Decision Making Medical Decision Making MDM Narrative: 27-year-old male with a past medical history of CARLA, HTN, Crohn's disease, ADHD, scoliosis, depression, presenting to the ED complaining of atraumatic right hip pain x1 week. On exam vital signs stable, NAD, nontoxic appearing, physical exam as noted above. Concern for hip arthritis vs tendinitis or bursitis. Low suspicion for fracture, dislocation or septic joint/arthritis. Unlikely DVT. Concern for migraine headache. Low suspicion for meningitis/encephalitis or mass Plan: Fioricet, x-ray, IM Toradol Please refer to course for remaining clinical decision making, interpretation of labs/imaging results, and discussions with consultants and/or family members. Differential Diagnosis Differential Diagnoses: The differential diagnosis associated with the presentation includes As above Independent Interpretation I performed an independent interpretation of an: Plain X-Ray Radiology Impression Discussion of test interpretation with radiology: I have reviewed the radiologist's reading. External Record Review External record reviewed: Inpatient record, Office record, Outpatient record, Prior outpatient labs, Prior outpatient radiology, Primary care record and Outside ED record Tests considered The following testing was considered but not selected: As above Prescription Management I considered prescription management with: Pain Medication Discharge Plan Discharge Clinical Impression: Hip pain, right, Migraine Patient Disposition: Home, Self-Care Instructions: Migraine Headache (ED), Hip Pain (ED) Additional Instructions: Your x-rays unremarkable. Naproxen as an anti-inflammatory/pain medicine take with food In addition take Tylenol Follow-up with your doctor Symptoms persist or worsen return to the ED Prescriptions: New acetaminophen [Tylenol Extra Strength] 500 mg tablet 500 mg PO Q6H PRN (Reason: fever or pain) Qty: 14 0RF naproxen 500 mg tablet 500 mg PO BID PRN (Reason: pain) 10 Days Qty: 20 0RF No Action clonidine HCl 0.1 mg tablet 0.1 mg PO TID Qty: 270 1RF Entyvio 300 mg recon soln 300 mg IV Q2W 56 Days Qty: 1 8RF Rx Instructions: Infuse 300mg IV at week 0, 2, 6, then every 8 weeks maintainence dose multivitamin Tablet 1 tab PO DAILY ibuprofen 600 mg tablet 600 mg PO Q8H PRN (Reason: pain) Qty: 14 0RF (DME) Blood Pressure Cuff Misc See Rx Instructions .ROUTE .MEDSUPPLY Qty: 1 0RF Rx Instructions: blood pressure checks daily and as needed large cuff please lidocaine 4 % cream 1 appl topical QID PRN (Reason: pain) Qty: 50 4RF Vyvanse 10 mg capsule 10 mg PO DAILY Referrals: [facility] [place] [facility] [Provider Group] Shakira Higgins NP [Primary Care Provider] - 1 week
[2023-01-25] MEDS: Ketorolac Tromethamine 30 MG/ML VIAL IM (11:54)
[2023-01-25] MEDS: Butalb/Acetamin/Caff 50/325/40 TABLET 1 TAB PO (11:54)
--- NOTE | 2023-01-25 11:57 | PC.NURSE ---
reports r hip pain. aox4. calm, coop. walking to xray. no resp distress
[2023-01-25 13:48] VITALS: BP 115/73; PULSE 60; RESP 18; O2SAT 100
== END 2023-01-25 13:48 | disposition home or self-care (01) ==
PROVIDERS: Emergency Provider Emergency Medicine; PCP Hospitalist
DX: M25.551 Pain in right hip (principal); G43.909 Migraine, unspecified, not intractable, without status migrainosus; Z79.899 Other long term (current) drug therapy; Z87.891 Personal history of nicotine dependence
CPT/HCPCS: 73502; 96372; 99283; 99284; J1885

== ENCOUNTER 2023-01-26 07:03 | Outpatient (REF) | payer OTHER, SELFPAY | END 2023-01-26 07:04 | disposition home or self-care (01) | LOC: HO.MDS 07:03 | PROVIDERS: Visit Provider Internal Medicine Gastroenterology | DX: K50.90 Crohn's disease, unspecified, without complications (principal) | CPT/HCPCS: 96365; J3380 ==

== ENCOUNTER 2023-01-30 12:28 | Emergency (ER) | payer OTHER, SELFPAY ==
--- NOTE | 2023-01-30 12:47 | ED_ITS ---
HPI - General Adult General Chief complaint: Nausea/Vomiting/Diarrhea Stated complaint: Diarrhea/Fatigue Time Seen by Provider: 01/30/23 16:05 Source: patient and RN notes reviewed Mode of arrival: ambulatory Limitations: no limitations History of Present Illness HPI narrative: 27-year-old male with past medical history significant for Crohn's followed by GI, Dr. Khan presents for evaluation of diarrhea. patient reports that he had 4 episodes of nonbloody diarrhea since 6:00 a.m. this morning he has not taken any medication to help with the symptoms. He has some mild generalized abdominal pain. He reports this is consistent with his episodes of Crohn's he is on Entyvio and feels that his symptoms are managed pretty well he reports that his last follow-up with GI was about 2 months ago any had a colonoscopy earlier this year he denies any fevers, chills No other complaints or concerns at this time Related Data Home Medications Medication Instructions Recorded Confirmed multivitamin 1 tab PO DAILY 02/25/21 12/31/22 lisdexamfetamine 10 mg capsule 10 mg PO DAILY 12/31/22 12/31/22 (Vyvanse) Previous Rx's Medication Instructions Recorded miscellaneous medical supply #1 ea 06/04/21 (Blood Pressure Cuff) clonidine HCl 0.1 mg tablet 0.1 mg PO TID #270 tabs 12/17/21 lidocaine 4 % topical cream 1 appl topical QID PRN pain #50 01/14/22 grams vedolizumab 300 mg intravenous 300 mg IV Q2W 8 weeks #1 ea 05/09/22 solution (Entyvio) ibuprofen 600 mg tablet 600 mg PO Q8H PRN pain #14 tabs 07/16/22 acetaminophen 500 mg tablet 500 mg PO Q6H PRN fever or pain 01/25/23 (Tylenol Extra Strength) #14 tabs naproxen 500 mg tablet 500 mg PO BID PRN pain 10 days #20 01/25/23 tabs loperamide 2 mg capsule (Imodium 2 mg PO Q4H PRN loose stool #20 01/30/23 A-D) caps Allergies Allergy/AdvReac Type Severity Reaction Status Date / Time penicillin V Allergy Intermediate rash Verified 12/31/22 15:00 Review of Systems 2 Constitutional: Constitutional: Denies chills, Denies fever(s) and Denies headache(s) ENT: Denies headache(s) Cardiovascular: Cardiovascular: Denies chest pain and Denies dyspnea Respiratory: Respiratory: Denies cough and Denies dyspnea Gastrointestinal: Gastrointestinal: Reports abdominal pain, Denies melena, Denies hematochezia, Reports diarrhea, Reports loose stools, Denies nausea and Denies vomiting Musculoskeletal: Musculoskeletal: Denies back pain Integumentary/Breasts: Skin/Breast: Denies rash Neurologic: Denies headache(s) Psychiatric: Psychiatric: Denies homicidal ideation [facility] Past Medical History Medical History ADHD (attention deficit hyperactivity disorder) 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 Mother Hypertension Maternal Grandfather Diabetes Stroke Other Anemia Social History Social History Household Members: Friend(s) Housing: Apartment Do you presently have visiting nurse or other home services: No Alcohol intake: never Patient Tobacco Use Status: Former Tobacco user Smoked in Last 30 Days: No e-Cigarette/Vaping Use: Never Used Second Hand Smoke Exposure: No Advance Directives: No service: No Current occupational status: employed Current occupation: [employer] Cognitive needs: No Hearing needs: No Vision needs: No Physical Exam ED Vital Signs: Vital Signs - 24 hr 01/30/23 12:49 01/30/23 15:24 Temperature 98.6 F Pulse Rate 78 57 Respiratory Rate 18 16 Blood Pressure 120/72 118/70 Pulse Oximetry 99 98 Oxygen Delivery Method Room Air Room Air BMI result Body Mass Index 29.5 Const General: healthy appearing, comfortable, no acute distress, alert and awake Nutritional Appearance: well nourished Orientation/consciousness: patient oriented x3 HENMT Head: Yes normocephalic and Yes atraumatic Eyes Eyelids: Yes eyelids normal Conjunctivae: conjunctivae normal Sclerae: sclerae normal Corneas: corneas normal Pupils: Equal, round and reactive pupils present EOM: EOMs intact bilaterally Neck Neck: Yes full ROM Resp Effort & Inspection: normal respiratory effort, able to speak in complete sentences and not labored GI Inspection: No distended Palpation (GI): Soft to palpation, not firm, Tenderness to palpation present (GI) ( with minimal tenderness no left lower quadrant without guarding), no guarding and not rigid Skin General skin exam: no rashes or lesions noted and elasticity normal Neuro General: patient oriented x3 Cranial nerves: Yes Equal, round and reactive pupils present and Yes Bilaterally intact EOM present Cognition (Neuro): normal cognition Extrem Other: Moving all extremities well without any obvious deformities Course Course Course Narrative: This is a rapid medical exam: Additional HPI, ROS, PE not included below will be deferred to primary provider. Patient is a 27-year-old male presenting to the emergency department with complaint of diarrhea and fatigue since 6am today. Reports hx of Crohns, is unsure if symptoms are related to a flare. Reports mid abdominal pain. Denies nausea or vomiting. Denies fever. Denies sick contacts. Denies any blood in stool. States pain is 5/10. Plan: labs Medical Decision Making Medical Decision Making [facility] Narrative: 27-year-old male with history of Crohn's disease presents for evaluation of 4 episodes of diarrhea. His vital signs are stable, he has no fever. He has no leukocytosis, his abdominal exam is reassuring. I do not see any indication for emergent imaging at this time. The patient has not had any episodes of diarrhea in the 4 hours she has been the department. He has not tried any [id number] medications such as Imodium or Pepto-Bismol which I encouraged him to use infuse have some 3 or more loose stools per day. He will follow up with GI Differential Diagnosis Differential Diagnoses: The differential diagnosis associated with the presentation includes Crohn's disease Acute diarrhea Diverticulitis Colitis Viral syndrome Lab Data [facility] Lab Attestation statement: I reviewed the patient's lab results. no leukocytosis or anemia. No electrolyte abnormalities 01/30/23 12:58 01/30/23 12:58 Labs: Lab Results 01/30/23 Range/Units 12:58 WBC 6.5 (4.8-10.8) X10*3/uL RBC 5.08 (4.60-5.80) X10*6/uL Hgb 14.9 (14.0-18.0) g/dl Hct 45.1 (42.0-52.0) % MCV 88.8 (80.0-98.0) fL MCH 29.3 (27.0-33.0) pg MCHC 33.0 (31.0-36.0) g/dl RDW 12.9 (11.0-16.0) % Plt Count 218 (160-400) X10*3/uL MPV 9.7 (9.4-12.4) fL Immature Gran % (Auto) 0.2 (0.0-0.4) % Neut % (Auto) 68.1 (45-73) % Lymph % (Auto) 23.3 (20-40) % Chase % (Auto) 5.5 (2-11) % Eos % (Auto) 2.3 (0-4) % Baso % (Auto) 0.6 (0-2) % Lymph # (Auto) 1.5 (1.2-4.9) X10*3/uL Chase # (Auto) 0.4 (0.1-1.2) X10*3/uL Eos # (Auto) 0.2 (0.0-0.4) X10*3/uL Baso # (Auto) 0.0 (0.0-0.2) X10*3/uL Abs Immat Gran (auto) 0.01 (0.00-0.03) X10*3/uL Absolute Neuts (auto) 4.4 (2.0-8.3) x10*3/uL Absolute Nucleated RBC 0.000 (0.0-0.012) X10*3/uL Nucleated RBC % (auto) 0.0 (0.0-0.2) /100WBC Sodium 139 (135-145) mmol/L Potassium 4.2 (3.3-5.1) mmol/L Chloride 104 (96-108) mmol/L Carbon Dioxide 25 (22-29) mmol/L Anion Gap 14 (12-20) BUN 12 (9-16) mg/dL Creatinine 0.91 (0.5-1.4) mg/dL Estim Creat Clear Calc 161.1 Estimated GFR > 60 Random Glucose 105 (60-115) mg/dL Calcium 9.8 (8.4-10.2) mg/dL Magnesium 2.3 (1.6-2.6) mg/dL Total Bilirubin 0.4 (0.0-1.0) mg/dL AST 22 (5-37) U/L ALT 23 (0-40) U/L Alkaline Phosphatase 67 (39-117) U/L Total Protein 7.4 (6.5-8.0) g/dL Albumin 4.6 (3.5-5.0) g/dL Lipase 18 (8-78) U/L COVID-19 (AMY) Negative (Negative) COVID-19 Clin Com See Note Influenza Type A (STEPHENIE) Negative (Negative) Influenza Type B (STEPHENIE) Negative (Negative) Influenza A & B Note See Note Tests considered The following testing was considered but not selected: considered CT imaging of the abdomen for diarrhea all the patient has a benign exam and no white count, no fever, this was ultimately deferred. Discharge Plan Discharge Clinical Impression: Diarrhea Patient Disposition: Home, Self-Care Instructions: Acute Diarrhea (ED) Additional Instructions: your workup in the emergency room today was reassuring. Take Imodium discussed if you are having 3 or more loose stools per day should also use BRAT ( bananas, rice, applesauce, toast) diet to help slow down the diarrhea hydrate well, follow up your primary doctor and GI return for new or worsening symptoms Prescriptions: New loperamide [Imodium A-D] 2 mg capsule 2 mg PO Q4H PRN (Reason: loose stool) Qty: 20 0RF Rx Instructions: administer after each loose stool until symptoms controlled; do not exceed 8 mg per 24 hrs No Action clonidine HCl 0.1 mg tablet 0.1 mg PO TID Qty: 270 1RF Entyvio 300 mg recon soln 300 mg IV Q2W 56 Days Qty: 1 8RF Rx Instructions: Infuse 300mg IV at week 0, 2, 6, then every 8 weeks maintainence dose multivitamin Tablet 1 tab PO DAILY ibuprofen 600 mg tablet 600 mg PO Q8H PRN (Reason: pain) Qty: 14 0RF acetaminophen [Tylenol Extra Strength] 500 mg tablet 500 mg PO Q6H PRN (Reason: fever or pain) Qty: 14 0RF naproxen 500 mg tablet 500 mg PO BID PRN (Reason: pain) 10 Days Qty: 20 0RF (DME) Blood Pressure Cuff Misc See Rx Instructions .ROUTE .MEDSUPPLY Qty: 1 0RF Rx Instructions: blood pressure checks daily and as needed large cuff please lidocaine 4 % cream 1 appl topical QID PRN (Reason: pain) Qty: 50 4RF Vyvanse 10 mg capsule 10 mg PO DAILY Stand Alone Forms: Work/School Release
[2023-01-30 12:49] VITALS: BP 120/72; PULSE 78; RESP 18; TEMP 37; O2SAT 99; BMI 29.5
[2023-01-30 13:02] LABS: MANUAL DIFF FLAG NO
[2023-01-30 13:05] LABS: Basophils Percent Auto 0.6 % (0-2); Eosinophils Absolute Auto 0.2 X10*3/uL (0.0-0.4); Eosinophils Percent Auto 2.3 % (0-4); Hematocrit 45.1 % (42.0-52.0); Hemoglobin 14.9 g/dl (14.0-18.0); Imm Gran Abs Auto 0.01 X10*3/uL (0.00-0.03); Imm Gran Pct Auto 0.2 % (0.0-0.4); Lymphocytes Absolute Auto 1.5 X10*3/uL (1.2-4.9); Lymphocytes Percent Auto 23.3 % (20-40); Mean Corpuscular Hemoglobin 29.3 pg (27.0-33.0); Mean Corpuscular Volume 88.8 fL (80.0-98.0); Mean Platelet Volume 9.7 fL (9.4-12.4); Monocytes Absolute Auto 0.4 X10*3/uL (0.1-1.2); Monocytes Percent Auto 5.5 % (2-11); Neutrophils Absolute Auto 4.4 x10*3/uL (2.0-8.3); Neutrophils Percent Auto 68.1 % (45-73); Platelet Count 218 X10*3/uL (160-400); Red Blood Count 5.08 X10*6/uL (4.60-5.80); Red Cell Distribution Width 12.9 % (11.0-16.0); White Blood Count 6.5 X10*3/uL (4.8-10.8)
[2023-01-30 13:21] LABS: COVID-19 Test Negative (Negative); IDNOW Serial# 08D9AD1C; IDNOW Serial# BCCEAD1C; Influenza A Negative (Negative); Influenza B2 Negative (Negative)
[2023-01-30 13:31] LABS: Alanine Aminotransferase 23 U/L (0-40); Albumin Level 4.6 g/dL (3.5-5.0); Alkaline Phosphatase 67 U/L (39-117); Anion Gap 14 (12-20); Aspartate Amino Transferase 22 U/L (5-37); Bilirubin Total 0.4 mg/dL (0.0-1.0); Blood Urea Nitrogen 12 mg/dL (9-16); Calcium 9.8 mg/dL (8.4-10.2); Carbon Dioxide 25 mmol/L (22-29); Chloride 104 mmol/L (96-108); Creatinine Clr Calc Pharmacy 161.1; Estimated Glomerular Filt Rate > 60; Glucose Random 105 mg/dL (60-115); Lipase 18 U/L (8-78); Magnesium 2.3 mg/dL (1.6-2.6); Potassium 4.2 mmol/L (3.3-5.1); Sodium 139 mmol/L (135-145); Total Protein 7.4 g/dL (6.5-8.0)
[2023-01-30 15:24] VITALS: BP 118/70; PULSE 57; RESP 16; O2SAT 98
--- NOTE | 2023-01-30 15:25 | PC.NURSE ---
pt aox4, ambulatory. reporting fatigue since this morning with diarrhea. some abd pain central, 5/10. abd soft and non tender to palpation. vitals stable. labs drawn in triage, waiting for provider sign-up. No distress noted at this time, pt resting and is on phone.
== END 2023-01-30 16:46 | disposition home or self-care (01) ==
PROVIDERS: Registered Nurse Emergency; Emergency Provider Internal Medicine
DX: R19.7 Diarrhea, unspecified (principal); Z11.52 Encounter for screening for COVID-19; K50.90 Crohn's disease, unspecified, without complications; Z79.899 Other long term (current) drug therapy; Z87.891 Personal history of nicotine dependence
CPT/HCPCS: 80053; 83690; 83735; 85025; 87502; 87635; 99283; 99284

== ENCOUNTER 2023-02-17 10:13 | Outpatient (AMB) | payer OTHER, SELFPAY ==
--- NOTE | 2023-02-17 10:26 | A.OFFPC_ITS ---
Vital Signs 02/17/23 10:27 Height 6 ft 3 in Weight 235 lb 2 oz BMI 29.4 BP 120/72 Blood Pressure Location Lt brachial Position Sitting Respiration 13 Pulse 68 Pulse Source Pulse Oximeter Temp 98.7 F Temp Source Oral Pulse Oximetry (%) 99 Oxygen Delivery Method Room Air Intake [place] [facility] [place] Intake Note: Patient is here for a hospital follow up regarding right hip pain, seen on 01/25/23 at [facility]. Discharge summary and ED notes in patient's chart. Patient reports he did not injure himself, he states he woke up one day and his hip was so painful he had a difficult time walking. Patient reports he takes ibuprofen for the pain if he has it and he has been doing better since the visit. Patient requests a refill for ibuprofen. Director Print Required: No Accompanied by: Self / Same As Patient Allergies penicillin V Allergy (Intermediate, Verified 02/17/23 10:51) rash Medication List - Last Reconciled 02/17/23 by Neel Kothari CNP acetaminophen (Tylenol Extra Strength) 500 mg PO Q6H PRN clonidine HCl 0.1 mg PO TID ibuprofen 600 mg PO Q8H PRN lidocaine 4% 1 appl topical QID PRN lisdexamfetamine (Vyvanse) 10 mg PO DAILY loperamide (Imodium A-D) 2 mg PO Q4H PRN miscellaneous medical supply (Blood Pressure Cuff) blood pressure checks daily and as needed large cuff please multivitamin 1 tab PO DAILY vedolizumab (Entyvio) 300 mg IV Q2W 8 weeks Tobacco use date assessed: 02/17/23 HPI HPI Comments History of Present Illness Details 27-year-old male presents for a follow-u p visit. He was evaluated at [facility] ED on 01/25/2023 for atraumatic right hip pain and migraine. Physical exam was benign. There were concern for arthritis vs tendinitis or bursitis. He was administered fioricet and IM Toradol. X-ray was negative. He was sent home with acetaminophen and naproxen. On 01/31/2023, it was evaluated for diarrhea [facility] ED. physical exam was benign. Vital signs stable. He was encouraged to start a BRAT diet and follow-up with PCP and GI. He has history of Crohn's disease and is followed by [facility] Gastroenterology. He reports significant improvement of his symptoms since he was discharged from the ED. He notes that his symptoms completely resolved. Naproxen was not effective therefore he has been taking ibuprofen. His only complaint today is slight right hip pain which started while he was working this morning. Request refill of ibuprofen. 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 Mother Hypertension Maternal Grandfather Diabetes Stroke Other Anemia Social History Household Members: Friend(s) Housing: Apartment Do you presently have visiting nurse or other home services: No Alcohol intake: never Patient Tobacco Use Status: Former Tobacco user e-Cigarette/Vaping Use: Never Used Second Hand Smoke Exposure: No service: No Current occupational status: employed Current occupation: [employer] Cognitive needs: No Hearing needs: No Vision needs: No Questionnaire Thrive Questionnaire Date Thrive assessed: 01/15/21 CHARLEEN-7 AMB Questionnaire CHARLEEN-7 Date CHARLEEN - 7 assessed: 01/15/21 Source: Developed by Drs. Sloan Almaraz, Molly Nelson, Chris simons nd colleagues, with an educational kulwinder from [employer] (powering [employer]). Review of Systems Const Details: Const Denies chills, Denies fatigue, Denies fever(s), Denies headache(s) and Denies weakness ENT Denies dizziness and Denies headache(s) Card Denies chest pain, Denies lightheadedness, Denies dyspnea and Denies other (Palpitations) Resp Denies cough, Denies dyspnea, Denies wheezing and Denies other ( shortness of breath) GI Denies abdominal pain, Denies melena, Denies hematochezia, Denies change in bowel habits, Denies dyspepsia and Denies nausea Denies hematuria and Denies dysuria Musc Reports as per HPI Skin/Breast Denies rash, Denies unusual bruising and Denies wounds Neuro Denies abnormal gait, Denies dizziness, Denies headache(s), Denies memory loss, Denies numbness, Denies Sensory deficit (Neuro), Denies tingling and Denies weakness Psych Denies anxiety, Denies depression, Denies memory loss Endo Denies cold intolerance, Denies fatigue, Denies heat intolerance, Denies polydipsia and Denies polyuria Aller/Immun Denies wheezing Physical exam (Primary Care) Vital Signs: Last Vital Signs Temp 98.7 F 02/17/23 10:27 Pulse 68 02/17/23 10:27 Resp 13 02/17/23 10:27 BP 120/72 02/17/23 10:27 Pulse Ox 99 02/17/23 10:27 Oxygen Delivery Method Room Air 02/17/23 10:27 BMI result Body Mass Index 29.4 Tobacco/Smoking Status: Tobacco use Status Tobacco use date assessed 02/17/23 02/17/23 10:37 Patient Tobacco Use Status Former Tobacco user 02/17/23 10:37 e-Cigarette/Vaping Use Never Used 02/17/23 10:37 Thrive Assessment: Date of Thrive Assessment Date Thrive assessed 01/15/21 02/17/23 10:37 Const Other: General: no acute distress and well developed Nutritional Appearance: well nourished Orientation/consciousness: patient oriented x3 HENMT Head: Yes normocephalic and Yes atraumatic Eyes General: appearance normal, both eyes and all related structures Pupils: Equal, round and reactive pupils present EOM: EOMs intact bilaterally Resp Effort & Inspection: normal respiratory effort Auscultation: clear to auscultation bilaterally Cardio Rate: regular rate Rhythm: regular rhythm Heart sounds: S1 normal heart sound present, S2 normal heart sound present, no gallops, no murmurs and no rubs GI Palpation (GI): No Abdominal aortic bruit present, Soft to palpation, nontender, No hepatosplenomegaly present and No Rebound tenderness present Auscultation: normal bowel sounds General: Yes no CVA tenderness Back/Spine/Pelvis Back: no CVA tenderness Cervical Spine: cervical ROM normal and No Cervical spine tenderness Thoracic/Lumbar Spine: thoraco-lumbar ROM normal, No pain with thoraco-lumbar ROM, No thoracic spinal tenderness and No lumbar spinal tenderness Extrem General: Yes normal to inspection, No edema and No calf tenderness Negative straight leg raise bilaterally Skin General: warm and dry. Normal skin color. Normal skin turgor Neuro General: patient oriented x3, gait normal and no focal neuro deficit Cranial nerves: Yes Equal, round and reactive pupils present Cognition (Neuro): normal cognition Gait exam (Neuro): Normal gait present Sensory Exam: No Sensory deficit (Neuro) Psych Appearance: grossly normal Affect: normal affect Attitude: cooperative Thought process: Normal thought process present Assessment and Plan Assessment & Plan (1) Hip pain, right: Code(s): M25.551 - Pain in right hip Plan: Reports mild pain which started while he was working today Tylenol ibuprofen as prescribed Warm compresses encouraged Work note given as requested Follow-up with worsening or new symptoms Verbalized understanding and agreed with treatment plan. (2) Diarrhea: Code(s): R19.7 - Diarrhea, unspecified Plan: Resolved Continue with current treatment regimen Follow-up with GI as needed Return with new or worsening symptoms Verbalized understanding and agreed with treatment plan. Medications: Refilled ibuprofen 600 mg PO Q8H PRN 30 tabs 2RF pain acetaminophen (Tylenol Extra Strength) 500 mg PO Q6H PRN 30 tabs 2RF fever or pain Coding Level of Care Code Est Pt Level 3 (47441) Diagnoses Hip pain, right M25.551 Diarrhea R19.7
[2023-02-17 10:27] VITALS: BP 120/72; PULSE 68; RESP 13; TEMP 37.1; O2SAT 99; BMI 29.4
== END 2023-02-17 11:49 | disposition home or self-care (01) ==
PROVIDERS: Visit Provider Nurse Practitioner Family
DX: M25.551 Pain in right hip (principal); R19.7 Diarrhea, unspecified
CPT/HCPCS: 99213

== ENCOUNTER → 2023-03-02 09:55 | Outpatient (REF) | payer OTHER, SELFPAY | LOC: HO.SL 09:55 | PROVIDERS: PCP Hospitalist; Visit Provider Nurse Practitioner Family | DX: G47.33 Obstructive sleep apnea (adult) (pediatric) (principal); G47.10 Hypersomnia, unspecified | CPT/HCPCS: 95806 ==

== ENCOUNTER → 2023-03-02 10:10 | Outpatient (BNV) | payer OTHER, SELFPAY | PROVIDERS: PCP Hospitalist; Visit Provider Psychiatry & Neurology Neurology | DX: R06.83 Snoring (principal) | CPT/HCPCS: 95806 ==

== ENCOUNTER 2023-03-08 09:03 | Outpatient (REF) | payer OTHER, SELFPAY | END 2023-03-08 09:04 | disposition home or self-care (01) | LOC: HO.MDS 09:03 | PROVIDERS: Visit Provider Internal Medicine Gastroenterology | DX: K50.90 Crohn's disease, unspecified, without complications (principal) | CPT/HCPCS: 96365; J3380 ==

== ENCOUNTER 2023-04-16 13:00 | Outpatient (AMB) | payer OTHER, SELFPAY ==
[2023-04-16 13:06] VITALS: BP 112/70; PULSE 70; O2SAT 98; BMI 27.9
--- NOTE | 2023-04-16 13:06 | MHC.PC.OV ---
Vital Signs 04/16/23 13:06 Height 6 ft 3 in Weight 223 lb BMI 27.9 BP 112/70 Blood Pressure Location Lt brachial Position Sitting Pulse 70 Pulse Source Pulse Oximeter Pulse Oximetry (%) 98 Oxygen Delivery Method Room Air Intake Visit Reasons: Trans. from -Requesting Physical Exam Intake Note: Patient is here as a transfer patient, has an issue with sleep. He would like to discuss getting blood work. Allergies penicillin V Allergy (Intermediate, Verified 04/16/23 13:37) rash Medication List - Last Reconciled 04/16/23 by Neel Kothari CNP acetaminophen (Tylenol Extra Strength) 500 mg PO Q6H PRN ibuprofen 600 mg PO Q8H PRN lidocaine 4% 1 appl topical QID PRN loperamide (Imodium A-D) 2 mg PO Q4H PRN miscellaneous medical supply (Blood Pressure Cuff) blood pressure checks daily and as needed large cuff please multivitamin 1 tab PO DAILY vedolizumab (Entyvio) 300 mg IV Q2W 8 weeks Tobacco use date assessed: 04/16/23 HPI HPI Comments History of Present Illness Details 27-year-old male presents for transfer of care Her former PCP is who has no longer with the practice He has history of hypertension, Crohn's, OA of right knee, scoliosis, obesity, ADHD, and depression He had blood work done on 01/30/2023 He reports difficulty falling asleep, staying asleep, and getting good quality sleep. He notes that his symptoms have been ongoing for the past 7 months. He is followed by [facility] in [place]. He notes that it has been determined he does not have sleep apnea. He has a follow up appointment later this moth He states that he stopped taking Vyvanse about a month ago He is followed by a psychiatrist about every 2 months. His last appointment was in 02/2023. He will schedule a follow up appointment He states that he was on clonidine for HTN. 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 Mother Hypertension Maternal Grandfather Diabetes Stroke Other Anemia Social History Household Members: Friend(s) Housing: Apartment Do you presently have visiting nurse or other home services: No Alcohol intake: never Patient Tobacco Use Status: Former Tobacco user e-Cigarette/Vaping Use: Never Used Second Hand Smoke Exposure: No service: No Current occupational status: employed Current occupation: [employer] Cognitive needs: No Hearing needs: No Vision needs: No Questionnaire PHQ-9 Over the last 2 weeks, how often have you been bothered by any of the following problems? 1. Little interest or pleasure in doing things: more than half the days 2. Feeling down, depressed, or hopeless: several days 3. Trouble falling or staying asleep, or sleeping too much: nearly every day 4. Feeling tired or having little energy: more than half the days 5. Poor appetite or overeating: several days 6. Feeling bad about yourself - or that you are a failure or have let yourself or your family down: not at all 7. Trouble concentrating on things, such as reading the newspaper or watching television: more than half the days 8. Moving or speaking so slowly that other people could have noticed. Or the opposite - being so fidgety or restless that you have been moving around a lot more than usual: more than half the days 9. Thoughts that you would be better off or of hurting yourself in some way: not at all Total score: 13 Depression Screening Interpretation: Positive Depression Screening Done: Yes 13937 - PHQ-9 Billing: Yes Source: Developed by Drs. Sloan Almaraz, Molly Nelson, Chris Vazquez and colleagues, with an educational kulwinder from [employer]. Thrive Questionnaire Date Thrive assessed: 04/16/23 I am a: Patient What is your living situation today?: I have a steady place to live Within the past 12 months, did the food you bought not last and you didn't have the money to get more?: Never true Do you have trouble paying for medicines?: No Do you have trouble getting transportation to medical appointments?: No Do you have trouble paying your heating and electricity bill?: No Do you have trouble taking care of your child, family member or friend?: No Do you have trouble with day-to-day activities such as bathing, preparing meals, shopping, managing finances, etc.?: Yes Are you currently unemployed and looking for a job?: No Are you interested in more education?: No Please select the resources that you would like help with: None Currently or been in a relationship where the following occur: no concerns reported AUDIT C Alcohol Use Questionnaire (AUDIT-C) 1. How often do you have a drink containing alcohol?: Never 3. How often do you have six or more drinks on one occasion?: Never Total Score: 0 CHARLEEN-7 AMB Questionnaire CHARLEEN-7 Date CHARELEN - 7 assessed: 04/16/23 Feeling nervous, anxious, or on edge: 2 = More than half the days Not being able to stop or control worryin = More than half the days Worrying too much about different things: 2 = More than half the days Trouble relaxin = More than half the days Being so restless that it is hard to sit still: 2 = More than half the days Becoming easily annoyed or irritable: 2 = More than half the days Feeling afraid as if something awful might happen: 1 = Several days Total CHARLEEN-7 score (0-4 normal; 5-9 mild; 10-14 moderate; 15-21 severe): 13 Source: Developed by Drs. Sloan Almaraz, Molly Nelson, Chris Vazquez and colleagues, with an educational kulwinder from [employer]. CHARLEEN-7 Assessment Billing CHARLEEN-7 Assessment Tool: CHARLEEN-7 Assessment 53301 Review of Systems Const Details: Denies chills, Denies fatigue, Denies fever(s), Denies headache(s) and Denies weakness HEENT Denies change in vision, Denies dizziness, Denies headache(s), Denies hearing loss, Denies nasal congestion, Denies sinus pain, Denies sinus pressure and Denies sore throat Card Denies chest pain, Denies lightheadedness, Denies dyspnea and Denies other (palpitations) Resp Denies cough, Denies dyspnea and Denies wheezing GI Denies abdominal pain, Denies melena, Denies hematochezia, Denies change in bowel habits, Denies dyspepsia and Denies nausea Denies hematuria and Denies dysuria Musc Denies abnormal gait, Denies myalgias, Denies arthralgias, Denies numbness and Denies tingling Skin/Breast Denies rash, Denies unusual bruising and Denies wounds Neuro Denies abnormal gait, Denies dizziness, Denies headache(s), Denies memory loss, Denies numbness, Denies Sensory deficit (Neuro), Denies tingling and Denies weakness Psych Denies anxiety, Denies depression and Denies memory loss Endo Denies cold intolerance, Denies fatigue, Denies heat intolerance, Denies polydipsia and Denies polyuria Niall/Lymph Denies easy bleeding and Denies easy bruising Aller/Immun Denies wheezing Physical exam (Primary Care) Vital Signs: Last Vital Signs Pulse 70 04/16/23 13:06 BP 112/70 04/16/23 13:06 Pulse Ox 98 04/16/23 13:06 Oxygen Delivery Method Room Air 04/16/23 13:06 BMI result Body Mass Index 27.9 Tobacco/Smoking Status: Tobacco use Status Tobacco use date assessed 04/16/23 04/16/23 13:13 Patient Tobacco Use Status Former Tobacco user 04/16/23 13:13 e-Cigarette/Vaping Use Never Used 04/16/23 13:13 PHQ-9: PHQ-9 Score PHQ-9: Total score 13 04/16/23 14:02 Depression Screening Interpretation: Positive Thrive Assessment: Date of Thrive Assessment Date Thrive assessed 04/16/23 04/16/23 14:02 Currently or been in a relationship where the following occur: no concerns reported Const Other: General: no acute distress, well developed, alert and awake Nutritional Appearance: well nourished Orientation/consciousness: patient oriented x3 HENMT Head: Yes normocephalic and Yes atraumatic Ears: hearing grossly normal bilaterally and TM's normal bilaterally General nose exam: Normal external nose present and Normal nares present Mouth: Normal oral and palatal mucosa present and moist mucous membranes Teeth and gingiva: dentition normal Throat: Yes oropharynx normal Eyes Pupils: Equal, round and reactive pupils present and Pupil accommodation reflex normal EOM: EOMs intact bilaterally Neck Neck: Yes normal visual inspection, Yes no lymphadenopathy and Yes trachea midline Thyroid: Thyroid normal Carotids: no bruits Lymphatic: no lymphadenopathy noted Chest Chest palpation & inspection: normal inspection of the chest Resp Effort & Inspection: normal respiratory effort Auscultation: clear to auscultation bilaterally Cardio Rate: regular rate Rhythm: regular rhythm Heart sounds: S1 normal heart sound present, S2 normal heart sound present, no gallops, no murmurs and no rubs Bruits: no abdominal aortic bruits and no carotid bruits GI Palpation (GI): No Abdominal aortic bruit present, Soft to palpation, nontender, No hepatosplenomegaly present and No Rebound tenderness present Auscultation: normal bowel sounds General: Yes no CVA tenderness Back/Spine/Pelvis Back: no CVA tenderness Cervical Spine: cervical ROM normal and No Cervical spine tenderness Thoracic/Lumbar Spine: thoraco-lumbar ROM normal, No pain with thoraco-lumbar ROM, No thoracic spinal tenderness and No lumbar spinal tenderness Skin General: warm and dry. Normal skin color. Normal skin turgor Lesions: no lesions Rashes: no rashes Trauma: no lacerations or abrasions Wounds: no wounds Nails: normal Neuro General: patient oriented x3, gait normal and CN's II-XI intact bilaterally Cranial nerves: Yes Equal, round and reactive pupils present Cognition (Neuro): normal cognition Gait exam (Neuro): Normal gait present Motor exam (neuro): 5/5 motor strength present throughout Sensory Exam: No Sensory deficit (Neuro) Deep tendon reflexes (DTR's): Right patellar reflex intensity grade: 2+ and Left patellar reflex intensity grade: 2+ Extrem General: Yes normal to inspection, No edema and No calf tenderness Psych Appearance: grossly normal Affect: normal affect Attitude: cooperative Thought process: Normal thought process present Assessment and Plan Assessment & Plan (1) Normal physical examination, routine: Code(s): Z00.00 - Encounter for general adult medical examination without abnormal findings Plan: No significant physical restrictions or limitations noted He had blood work done in January Lipid panel and TSH/T4 ordered. Advised to get fasting blood work done before his next visit Follow-up for insomnia in 2 weeks or return sooner with worsening or new symptoms Verbalized understanding and agreed with treatment plan (2) Insomnia: Code(s): G47.00 - Insomnia, unspecified Plan: Reports difficulty falling and staying asleep and getting quality sleep for the past 7 months He stopped taking Vyvanse for ADHD and clonidine for hypertension He reports improved ADHD symptoms and controlled blood pressure His symptoms may be attributed to ADHD, depression, or anxiety PHQ-9 and CHARLEEN-7 scores revealed moderate depression and anxiety Will trial clonidine ER at bedtime. Advised to take as prescribed Encouraged to follow-up with her psychiatrist for further evaluation of her mental illness Follow-up in 2 weeks or return sooner with symptoms or concerns Verbalized understanding and agreed with treatment plan (3) ADHD (attention deficit hyperactivity disorder): Code(s): F90.9 - Attention-deficit hyperactivity disorder, unspecified type Plan: As above (4) Depression: Code(s): F32.9 - Major depressive disorder, single episode, unspecified Plan: As above (5) Anxiety: Code(s): F41.9 - Anxiety disorder, unspecified Plan: As above Orders: Orders Lipid Panel Today Z00.00 - Encounter for general adult medical examination without abnormal findings TSH reflex Free T4 Today Z00.00 - Encounter for general adult medical examination without abnormal findings Medications: New clonidine HCl ER 0.1 mg PO BEDTIME 30 tabs 2RF 30 days Coding Level of Care Code Est Pt Prev Care 18-39y(59325) Diagnoses Normal physical examination, routine Z00.00 Insomnia G47.00 ADHD (attention deficit hyperactivity disorder) F90.9 Depression F32.9 Anxiety F41.9 Additional Codes CHARLEEN-7 Assessment Billing - CHARLEEN-7 Assessment Tool: CHARLEEN-7 Assessment [id number] ([id number])
== END 2023-04-16 13:59 | disposition home or self-care (01) ==
PROVIDERS: Visit Provider Nurse Practitioner Family
DX: Z00.00 Encounter for general adult medical examination without abnormal findings (principal); G47.00 Insomnia, unspecified; F90.9 Attention-deficit hyperactivity disorder, unspecified type; F32.9 Major depressive disorder, single episode, unspecified; F41.9 Anxiety disorder, unspecified; I10 Essential (primary) hypertension
CPT/HCPCS: 96127; 99395

== ENCOUNTER 2023-04-21 10:19 | Outpatient (REF) | payer OTHER, SELFPAY ==
[2023-04-21 12:55] LABS: Cholesterol 154 mg/dL (<200); HDL Cholesterol 65 mg/dL (>40); LDL Cholesterol Calculated 81 mg/dL (<100); Triglycerides 44 mg/dL (<150)
[2023-04-21 13:13] LABS: TSH reflex Free T4 1.11 uIU/mL (0.32-4.0)
== END 2023-04-21 10:20 | disposition home or self-care (01) ==
LOC: HO.LAB 10:19
PROVIDERS: PCP Nurse Practitioner Family; Visit Provider Nurse Practitioner Family
DX: Z00.00 Encounter for general adult medical examination without abnormal findings (principal)
CPT/HCPCS: 36415; 80061; 84443

== ENCOUNTER 2023-05-03 14:23 | Outpatient (AMB) | payer OTHER, SELFPAY ==
--- NOTE | 2023-05-03 14:25 | A.OFFVIS_ITS ---
Intake Vital Signs 05/03/23 14:33 Height 6 ft 3 in Weight 221 lb 4 oz BMI 27.7 BP 120/72 Blood Pressure Location Lt brachial Position Sitting Pulse 69 Pulse Source Pulse Oximeter Pulse Oximetry (%) 99 Oxygen Delivery Method Room Air Intake Visit Reasons: 4m - To discuss results -CARLA LVM Intake Note: Patient presents for four month F/U. Still struggling with sleep at night Allergies penicillin V Allergy (Intermediate, Verified 05/19/23 13:06) rash HPI HPI Comments History of Present Illness Details 27 y/o male patient presents for follow up of sleep study. The home sleep study result was normal sleep, the AHI was less than 3 and the oxygen cheryl was 89%. He does not have difficulty falling asleep but having difficulty staying sleep. He wakes up almost every 2-3 hours. Pt was on Vyvanse 10 mg daily for ADHD, but it is discontinued. He tried PSG sleep study in the past, but could not sleep, and it was inconclusive. He lost about more than 100 lb over the last year. 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 Mother Hypertension Maternal Grandfather Diabetes Stroke Other Anemia Social History Household Members: Friend(s) Housing: Apartment Do you presently have visiting nurse or other home services: No Alcohol intake: never Patient Tobacco Use Status: Former Tobacco user e-Cigarette/Vaping Use: Never Used Second Hand Smoke Exposure: No service: No Current occupational status: employed Current occupation: [employer] Cognitive needs: No Hearing needs: No Vision needs: No Review of Systems Const All systems reviewed & are unremarkable except as noted in HPI and below ENT Reports Normal hearing present Neuro Reports Normal hearing present Physical Exam Vital Signs: Last Vital Signs Pulse 69 05/03/23 14:33 BP 120/72 05/03/23 14:33 Pulse Ox 99 05/03/23 14:33 Oxygen Delivery Method Room Air 05/03/23 14:33 BMI result Body Mass Index 27.7 Const General: cooperative Nutritional Appearance: overweight Orientation/consciousness: patient oriented x3 Neck Neck: Yes full ROM and Yes supple Resp Effort & Inspection: normal respiratory effort and able to speak in complete sen tences Neuro General: patient oriented x3 and gait normal Cranial nerves: Yes Bilaterally intact EOM present, Yes Normal facial strength present, Yes Midline tongue present, Yes Symmetric palate elevation present, Yes Normal hearing present and Yes Ability to bilaterally rotate head present Psych Appearance: grossly normal Mental Status: mental status grossly normal Speech and movement: Normal speech and movement present Affect: normal affect Attitude: cooperative Assessment & Plan Assessment & Plan (1) Difficulty sleeping: Code(s): G47.9 - Sleep disorder, unspecified Plan Sleep hygiene education provided. Advised patient to limit electronic use, and caffeine intake in the evening. Advised patient to read Say Good Night to Insomnia and practice the 6 weeks sleep hygiene program. May try Calm Sleep supplement. Pt to call with any worsening concerns or questions. Coding Level of Care Code Est Pt Level 3 (03379) Diagnoses Difficulty sleeping G47.9
[2023-05-03 14:33] VITALS: BP 120/72; PULSE 69; O2SAT 99; BMI 27.7
== END 2023-05-03 14:55 | disposition home or self-care (01) ==
PROVIDERS: PCP Hospitalist; Visit Provider Nurse Practitioner Family
DX: G47.9 Sleep disorder, unspecified (principal)
CPT/HCPCS: 99213

== ENCOUNTER → 2023-05-03 14:23 | Outpatient (BNVA) | payer OTHER, SELFPAY | PROVIDERS: PCP Hospitalist; Visit Provider Nurse Practitioner Family | DX: G47.9 Sleep disorder, unspecified (principal) | CPT/HCPCS: 99212 ==

== ENCOUNTER 2023-05-05 08:52 | Outpatient (REF) | payer OTHER, SELFPAY | END 2023-05-05 08:53 | disposition home or self-care (01) | LOC: HO.MDS 08:52 | PROVIDERS: Visit Provider Internal Medicine Gastroenterology | DX: K50.90 Crohn's disease, unspecified, without complications (principal) | CPT/HCPCS: 96365; J3380 ==

== ENCOUNTER 2023-05-07 15:34 | Outpatient (AMB) | payer OTHER, SELFPAY ==
--- NOTE | 2023-05-07 15:50 | MHC.PC.OV ---
Vital Signs 05/07/23 15:51 Height 6 ft 3 in Weight 219 lb 4 oz BMI 27.4 BP 108/70 Blood Pressure Location Rt brachial Position Sitting Respiration 13 Pulse 119 H Pulse Source Pulse Oximeter Temp 98.3 F Temp Source Temporal Artery Scan Pulse Oximetry (%) 99 Oxygen Delivery Method Room Air Intake Visit Reasons: f/u insomnia, labs review Manager Field Investigations Required: No Accompanied by: Self / Same As Patient Allergies penicillin V Allergy (Intermediate, Verified 05/07/23 16:15) rash Medication List - Last Reconciled 05/07/23 by Neel Kothari CNP acetaminophen (Tylenol Extra Strength) 500 mg PO Q6H PRN ibuprofen 600 mg PO Q8H PRN lidocaine 4% 1 appl topical QID PRN loperamide (Imodium A-D) 2 mg PO Q4H PRN miscellaneous medical supply (Blood Pressure Cuff) blood pressure checks daily and as needed large cuff please multivitamin 1 tab PO DAILY vedolizumab (Entyvio) 300 mg IV Q2W 8 weeks Tobacco use date assessed: 04/16/23 Dental Screening Dental Screen Date: 05/07/23 Did you have a dental visit in the last 12 months?: No Did you have a dental problem in the last 6 months where you did not have access to dental care?: No Was dental information given to patient?: Yes HPI HPI Comments History of Present Illness Details 27 y/o male presents for insomnia follow up He notes that he was seen by sleep medicine 2 days ago. Home sleep study was inclusive. He will be scheduled to have sleep study done in the office Reports difficulty falling and staying asleep and getting quality sleep for the past 7 months. 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 Mother Hypertension Maternal Grandfather Diabetes Stroke Other Anemia Social History Household Members: Friend(s) Housing: Apartment Do you presently have visiting nurse or other home services: No Alcohol intake: never Patient Tobacco Use Status: Former Tobacco user e-Cigarette/Vaping Use: Never Used Second Hand Smoke Exposure: No service: No Current occupational status: employed Current occupation: [employer] Cognitive needs: No Hearing needs: No Vision needs: No Questionnaire Thrive Questionnaire Date Thrive assessed: 04/16/23 CHARLEEN-7 AMB Questionnaire CHARLEEN-7 Date CHARLEEN - 7 assessed: 04/16/23 Source: Developed by Drs. Sloan Almaraz, Molly Nelson, Chris Vazquez and colleagues, with an educational kulwinder from [employer]. Review of Systems Const Details: Const Denies chills, Denies fatigue, Denies fever(s), Denies headache(s) and Denies weakness ENT Denies dizziness and Denies headache(s) Card Denies chest pain, Denies lightheadedness, Denies dyspnea and Denies other (Palpitations) Resp Denies cough, Denies dyspnea, Denies wheezing and Denies other ( shortness of breath) GI Denies abdominal pain, Denies melena, Denies hematochezia, Denies change in bowel habits, Denies dyspepsia and Denies nausea Denies hematuria and Denies dysuria Musc Denies abnormal gait, Denies myalgias, Denies arthralgias, Denies numbness and Denies tingling Skin/Breast Denies rash, Denies unusual bruising and Denies wounds Neuro Denies abnormal gait, Denies dizziness, Denies headache(s), Denies memory loss, Denies numbness, Denies Sensory deficit (Neuro), Denies tingling and Denies weakness Psych Denies anxiety, Denies depression, Denies memory loss Endo Denies cold intolerance, Denies fatigue, Denies heat intolerance, Denies polydipsia and Denies polyuria Aller/Immun Denies wheezing Physical exam (Primary Care) Vital Signs: Last Vital Signs Temp 98.3 F 05/07/23 15:51 Pulse 119 H 05/07/23 15:51 Resp 13 05/07/23 15:51 BP 108/70 05/07/23 15:51 Pulse Ox 99 05/07/23 15:51 Oxygen Delivery Method Room Air 05/07/23 15:51 BMI result Body Mass Index 27.4 Tobacco/Smoking Status: Tobacco use Status Tobacco use date assessed 04/16/23 05/07/23 15:55 Patient Tobacco Use Status Former Tobacco user 05/07/23 15:55 e-Cigarette/Vaping Use Never Used 05/07/23 15:55 Thrive Assessment: Date of Thrive Assessment Date Thrive assessed 04/16/23 05/07/23 15:55 Const Other: General: no acute distress and well developed Nutritional Appearance: well nourished Orientation/consciousness: patient oriented x3 HENMT Head: Yes normocephalic and Yes atraumatic Eyes General: appearance normal, both eyes and all related structures Pupils: Equal, round and reactive pupils present EOM: EOMs intact bilaterally Resp Effort & Inspection: normal respiratory effort Auscultation: clear to auscultation bilaterally Cardio Rate: regular rate Rhythm: regular rhythm Heart sounds: S1 normal heart sound present, S2 normal heart sound present, no gallops, no murmurs and no rubs GI Palpation (GI): No Abdominal aortic bruit present, Soft to palpation, nontender, No hepatosplenomegaly present and No Rebound tenderness present Auscultation: normal bowel sounds General: Yes no CVA tenderness Back/Spine/Pelvis Back: no CVA tenderness Cervical Spine: cervical ROM normal and No Cervical spine tenderness Thoracic/Lumbar Spine: thoraco-lumbar ROM normal, No pain with thoraco-lumbar ROM, No thoracic spinal tenderness and No lumbar spinal tenderness Extrem General: Yes normal to inspection, No edema and No calf tenderness Skin General: warm and dry. Normal skin color. Normal skin turgor Lesions: no lesions Rashes: no rashes Trauma: no lacerations or abrasions Wounds: no wounds Nails: normal Neuro General: patient oriented x3, gait normal and no focal neuro deficit Cranial nerves: Yes Equal, round and reactive pupils present Cognition (Neuro): normal cognition Gait exam (Neuro): Normal gait present Sensory Exam: No Sensory deficit (Neuro) Psych Appearance: grossly normal Affect: normal affect Attitude: cooperative Thought process: Normal thought process present Assessment and Plan Assessment & Plan (1) Insomnia: Code(s): G47.00 - Insomnia, unspecified Plan: Reports sleep disturbance with a past several months Clonidine 0.1 ER was recently prescribed for sleep and was not approve by his health plan Will order clonidine 0.1 IR daily at bedtime for sleep. Take as prescribed Routine exercise encouraged Follow-up for telehealth visit in 2 weeks or return sooner with worsening or new symptoms Verbalized understanding and agreed with treatment plan Medications: New clonidine HCl 0.1 mg PO BEDTIME 30 days 30 tabs 0RF Coding Level of Care Code Est Pt Level 3 (59999) Diagnoses Insomnia G47.00
[2023-05-07 15:51] VITALS: BP 108/70; PULSE 119; RESP 13; TEMP 36.8; O2SAT 99; BMI 27.4
== END 2023-05-07 16:43 | disposition home or self-care (01) ==
PROVIDERS: Visit Provider Nurse Practitioner Family
DX: G47.00 Insomnia, unspecified (principal)
CPT/HCPCS: 99213

== ENCOUNTER 2023-05-19 13:04 | Outpatient (AMB) | payer OTHER, SELFPAY ==
--- NOTE | 2023-05-19 13:05 | AM.OFFWIN_ITS ---
Intake Vital Signs 05/19/23 13:06 Height 6 ft 3 in Weight 222 lb BMI 27.7 BP 128/70 Blood Pressure Location Lt brachial Position Sitting Pulse 68 Pulse Source Pulse Oximeter Temp 97.9 F Temp Source Temporal Artery Scan Pulse Oximetry (%) 98 Oxygen Delivery Method Room Air Intake Visit Reasons: EST/headache and fatigue(lobby) Intake Note: pt is here for c.o headache and fatigue 2 months Patient Tobacco Use Status: Former Tobacco user Allergies penicillin V Allergy (Intermediate, Verified 05/19/23 13:06) rash Do you need a note to return to daycare/school/sports/work: No HPI HPI Comments History of Present Illness Details This is a very pleasant 27-year-old male with a past medical history of ADHD, insomnia and Crohn's disease presenting for evaluation of fatigue and headaches that he has had for the past 2 months. Patient states that he is working with his primary care provider to have a repeat sleep study performed however he feels that he needs ?a scan of my head? as related to his insomnia. Patient does report having anxiety however is not taking any medication at this time for his anxiety. He is working with his primary care provider and states that his thyroid was checked at some time in the last month and was normal. Patient denies having any visual changes, neck pain, lightheadedness, nausea, vomiting or abdominal pain. 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 Mother Hypertension Maternal Grandfather Diabetes Stroke Other Anemia Social History Household Members: Friend(s) Housing: Apartment Do you presently have visiting nurse or other home services: No Alcohol intake: never Patient Tobacco Use Status: Former Tobacco user e-Cigarette/Vaping Use: Never Used Second Hand Smoke Exposure: No service: No Current occupational status: employed Current occupation: [employer] Cognitive needs: No Hearing needs: No Vision needs: No Review of Systems Neuro Denies Abnormal speech present Physical Exam Vital Signs: Last Vital Signs Temp 97.9 F 05/19/23 13:06 Pulse 68 05/19/23 13:06 BP 128/70 05/19/23 13:06 Pulse Ox 98 05/19/23 13:06 Oxygen Delivery Method Room Air 05/19/23 13:06 BMI result Body Mass Index 27.7 Const General: cooperative, healthy appearing, comfortable, no acute distress, well developed, alert, awake and anxious; No lethargic Nutritional Appearance: average body habitus Orientation/consciousness: patient oriented x3 and No lethargic Limitations: no limitations Resp Effort & Inspection: normal respiratory effort and able to speak in complete sentences Auscultation: clear to auscultation bilaterally Cardio Rate: regular rate Rhythm: regular rhythm Neuro General: patient oriented x3, gait normal, no focal motor deficits and CN's II- XI intact bilaterally Cognition (Neuro): normal cognition Speech: No Abnormal speech present Gait exam (Neuro): Normal gait present Psych Appearance: grossly normal Mental Status: mental status grossly normal Affect: Anxious affect present Insight: Good insight present (Psych) Judgement: Good judgement present (Psych) Assessment & Plan Assessment & Plan (1) Insomnia: Comment: Patient has a follow-up appointment with his primary care provider in [place] on Wednesday. I will give the patient a limited prescription of hydroxyzine in an attempt to treat his insomnia however will defer to his primary care provider for ongoing treatment. I have reassured the patient that he is neurologically intact and does not require urgent CT imaging of the brain today. Code(s): G47.00 - Insomnia, unspecified Qualifiers: Insomnia type: unspecified Qualified Code(s): G47.00 - Insomnia, unspecified Plan: Hydroxyzine 50 mg at bedtime. Five days will be supplied. Medications: New hydroxyzine HCl 50 mg PO BEDTIME 5 tabs 0RF Coding Level of Care Code Est Pt Level 3 (30499) Diagnoses Insomnia, unspecified type G47.00 Insomnia type: unspecified Time Spent (min) 20
[2023-05-19 13:06] VITALS: BP 128/70; PULSE 68; TEMP 36.6; O2SAT 98; BMI 27.7
== END 2023-05-19 13:57 | disposition home or self-care (01) ==
PROVIDERS: Visit Provider Physician Assistant
DX: G47.00 Insomnia, unspecified (principal)
CPT/HCPCS: 99213

== ENCOUNTER 2023-06-07 11:04 | Emergency (ER) | payer OTHER, SELFPAY ==
[2023-06-07 11:48] VITALS: BP 125/76; PULSE 55; RESP 16; TEMP 36.6; O2SAT 100; BMI 27.5
--- NOTE | 2023-06-07 11:50 | ED.GENADULT ---
HPI - General Adult General Chief complaint: Weakness Stated complaint: feels weak Time Seen by Provider: 06/07/23 16:26 Source: patient Mode of arrival: ambulatory Limitations: no limitations History of Present Illness HPI narrative: Patient is a 27 year old assigned male at with a history of crohn's disease presenting to the emergency department today with intermittent fatigue over the last week. Patient states that over the last week he has felt more fatigued and run down. Patient states that he was concerned it was his blood levels because he has needed transfusions before. Patient denies any dizziness, lightheadedness, abdominal pain, nausea, vomiting, fever, chills, blurry vision, double vision, loss of vision, chest pain, difficulty breathing, shortness of breath, back pain, night sweats, pain with urination, increased urinary frequency, increased urinary urgency, blood in his urine or stool, syncope or a near syncopal episode, recent trauma or falls, bowel incontinence, bladder incontinence, bowel retention, bladder retention, or any other complaints at this time. Onset (ago): week(s) (1) Severity: mild Relieving factors: none Exacerbating factors: none Associated symptoms: denies other symptoms Treatments prior to arrival: none Related Data Previous Rx's Medication Instructions Recorded miscellaneous medical supply #1 ea 06/04/21 (Blood Pressure Cuff) vedolizumab 300 mg intravenous 300 mg IV Q2W 8 weeks #1 ea 05/09/22 solution (Entyvio) acetaminophen 500 mg tablet 500 mg PO Q6H PRN fever or pain 02/17/23 (Tylenol Extra Strength) #30 tabs ibuprofen 600 mg tablet 600 mg PO Q8H PRN pain #30 tabs 02/17/23 hydroxyzine HCl 50 mg tablet 50 mg PO BEDTIME #5 tabs 05/19/23 Allergies Allergy/AdvReac Type Severity Reaction Status Date / Time penicillin V Allergy Intermediate rash Verified 05/19/23 13:06 Review of Systems Constitutional: Constitutional: Reports no additional constitutional complaints, Denies chills, Reports fatigue, Denies fever(s) and Denies night sweats Eyes: Eyes: Reports no additional eye complaints, Denies blurry vision, Denies change in vision, Denies diplopia, Denies eye discharge, Denies loss of vision and Denies eye pain ENT: Denies dizziness Cardiovascular: Cardiovascular: Reports no additional cardiovascular complaints, Denies chest pain, Denies lightheadedness, Denies Loss of Consciousness and Denies dyspnea Respiratory: Respiratory: Reports no additional respiratory complaints and Denies dyspnea Gastrointestinal: Gastrointestinal: Reports no additional gastrointestinal complaints, Denies abdominal pain, Denies melena, Denies hematochezia, Denies change in bowel habits and Denies change in stool character Genitourinary: Genitourinary: Reports no additional male genitourinary complaints, Denies hematuria, Denies oliguria, Denies difficulty urinating, Denies dysuria, Denies urinary frequency, Denies urinary hesitancy, Denies urinary incontinence and Denies urinary urgency Musculoskeletal: Musculoskeletal: Reports no additional musculoskeletal complaints, Denies numbness and Denies tingling Neurologic: Denies dizziness, Denies loss of vision, Denies numbness and Denies tingling Psychiatric: Psychiatric: Reports no additional psychiatric complaints Endocrine: Endocrine: Reports no additional endocrine complaints and Reports fatigue Hematologic/Lymphatic: Hematologic/Lymphatic: Reports no additional hematologic/lymphatic complaints Allergic/Immunologic: Allergic/Immunologic: Reports no additional allergic/immunologic complaints [facility] Past Medical History Attestation statement: The following information was validated with the patient. 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 Mother Hypertension Maternal Grandfather Diabetes Stroke Other Anemia Social History Social History Household Members: Friend(s) Housing: Apartment Do you presently have visiting nurse or other home services: No Alcohol intake: never Patient Tobacco Use Status: Former Tobacco user e-Cigarette/Vaping Use: Never Used Second Hand Smoke Exposure: No Advance Directives: No Advance Directives Information Provided: No service: No Current occupational status: employed Current occupation: [employer] Cognitive needs: No Hearing needs: No Vision needs: No Physical Exam ED Vital Signs: Vital Signs - 24 hr 06/07/23 11:48 Temperature 97.9 F Pulse Rate 55 Respiratory Rate 16 Blood Pressure 125/76 Pulse Oximetry 100 Oxygen Delivery Method Room Air BMI result Body Mass Index 27.5 Const General: cooperative, no acute distress, alert and awake Nutritional Appearance: well nourished Orientation/consciousness: patient oriented x3 Limitations: no limitations HENMT Head: Yes normal to inspection and Yes atraumatic Ears: hearing grossly normal bilaterally and external ears normal General nose exam: Normal external nose present, no nasal discharge noted and no epistaxis Face and sinus: Yes normal facial exam, No abrasion and No laceration Mouth: Normal oral and palatal mucosa present, no drooling and no muffled voice Eyes General: appearance normal, both eyes and all related structures Periorbital: periorbital findings normal Eyelids: Yes eyelids normal Conjunctivae: conjunctivae normal Pupils: Equal, round and reactive pupils present EOM: EOMs intact bilaterally Neck Neck: Yes normal visual inspection, Yes full ROM and Yes no lymphadenopathy Chest Chest palpation & inspection: normal inspection of the chest Resp Effort & Inspection: normal respiratory effort and able to speak in complete sentences Auscultation: clear to auscultation bilaterally Cardio Rate: regular rate Rhythm: regular rhythm GI Inspection: Yes normal to inspection Neuro General: patient oriented x3 and moves all extremities Cranial nerves: Yes Equal, round and reactive pupils present Cognition (Neuro): normal cognition Motor exam (neuro): 5/5 motor strength present throughout Sensory Exam: Normal double simultaneous stimulation for sensation Coordination: [id number] test normal Extrem General: Yes normal to inspection, Yes full ROM and Yes capillary refill normal Psych Appearance: grossly normal Mental Status: mental status grossly normal Affect: normal affect Attitude: cooperative Thought process: Normal thought process present Thought content: Normal thought content present Insight: Good insight present (Psych) Course Course Course Narrative: RME:?27 yo general weakness, headache, abdominal pain, back pain. denies fall/trauma or injury to back. last bm this morning. denies vomiting, diarrhea, constipation. taking all home meds as prescribed. no known sick contacts. labs, viral swabs ordered Full HPI, ROS and PE to be performed by the primary ED provider. Medical Decision Making Medical Decision Making MDM Narrative: Patient is a 27 year old assigned male at with a history of crohn's disease presenting to the emergency department today with fatigue. Patient's physical exam was unremarkable. Patient's blood work was unremarkable. I explained my physical exam findings as well as all test results to the patient. I answered all questions asked by the patient. I stressed the importance of the patient taking his medication as prescribed. I stressed the importance of the patient following up with his primary care provider. I stressed the importance of the patient returning to the emergency department immediately if his symptoms were to worsen or if he were to develop any dizziness, shortness of breath, difficulty breathing, chest pain, blurry vision, loss of vision, nausea, vomiting, abdominal pain, fever, chills, back pain, or any other complaints. Patient verbalized agreement and understanding with this treatment plan and discharge. Differential Diagnosis Differential Diagnoses: The differential diagnosis associated with the presentation includes Fatigue Viral illness Crohn's disease Admission/Observation Consideration of admission/observation: Escalation of care including admission/observation considered Patient would have been admitted to the hospital had his work up had any findings where hospital admission was appropriate and his clinical presentation warranted hospital admission. Lab Data [facility] Lab Attestation statement: I reviewed the patient's lab results. My interpretation of these results are in the [facility] Rationale portion of this note. 06/07/23 12:53 06/07/23 12:53 Labs: Lab Results 06/07/23 Range/Units 12:53 WBC 6.4 (4.8-10.8) X10*3/uL RBC 5.19 (4.60-5.80) X10*6/uL Hgb 15.7 (14.0-18.0) g/dl Hct 45.7 (42.0-52.0) % MCV 88.1 (80.0-98.0) fL MCH 30.3 (27.0-33.0) pg MCHC 34.4 (31.0-36.0) g/dl RDW 12.7 (11.0-16.0) % Plt Count 226 (160-400) X10*3/uL MPV 9.9 (9.4-12.4) fL Immature Gran % (Auto) 0.2 (0.0-0.4) % Neut % (Auto) 59.7 (45-73) % Lymph % (Auto) 31.5 (20-40) % Clinton % (Auto) 6.7 (2-11) % Eos % (Auto) 1.6 (0-4) % Baso % (Auto) 0.3 (0-2) % Lymph # (Auto) 2.0 (1.2-4.9) X10*3/uL Clinton # (Auto) 0.4 (0.1-1.2) X10*3/uL Eos # (Auto) 0.1 (0.0-0.4) X10*3/uL Baso # (Auto) 0.0 (0.0-0.2) X10*3/uL Abs Immat Gran (auto) 0.01 (0.00-0.03) X10*3/uL Absolute Neuts (auto) 3.8 (2.0-8.3) x10*3/uL Absolute Nucleated RBC 0.000 (0.0-0.012) X10*3/uL Nucleated RBC % (auto) 0.0 (0.0-0.2) /100WBC Sodium 140 (135-145) mmol/L Potassium 4.3 (3.3-5.1) mmol/L Chloride 104 (96-108) mmol/L Carbon Dioxide 27 (22-29) mmol/L Anion Gap 13 (12-20) BUN 14 (9-16) mg/dL Creatinine 0.80 (0.5-1.4) mg/dL Estim Creat Clear Calc 165.7 Estimated GFR > 60 Random Glucose 88 (60-115) mg/dL Calcium 9.5 (8.4-10.2) mg/dL Magnesium 2.1 (1.6-2.6) mg/dL Total Bilirubin 0.4 (0.0-1.0) mg/dL AST 22 (5-37) U/L ALT 22 (0-40) U/L Alkaline Phosphatase 64 (39-117) U/L Total Protein 7.8 (6.5-8.0) g/dL Albumin 4.8 (3.5-5.0) g/dL Lipase 18 (8-78) U/L Influenza Type A (PCR) NEGATIVE (Negative) Influenza Type B (PCR) NEGATIVE (Negative) RSV RNA Qual (PCR) NEGATIVE (Negative) SARS-CoV-2 RNA (RT-PCR) NEGATIVE (Negative) Discharge Plan Discharge Clinical Impression: Fatigue Patient Disposition: Home, Self-Care Instructions: Fatigue (ED) Additional Instructions: Follow up with your primary care provider. Return to the emergency department immediately if your symptoms worsen or if you develop any dizziness, shortness of breath, difficulty breathing, chest pain, blurry vision, loss of vision, nausea, vomiting, abdominal pain, fever, chills, back pain, or any other complaints. Prescriptions: No Action Entyvio 300 mg recon soln 300 mg IV Q2W 56 Days Qty: 1 8RF Rx Instructions: Infuse 300mg IV at week 0, 2, 6, then every 8 weeks maintainence dose (DME) Blood Pressure Cuff Misc See Rx Instructions .ROUTE .MEDSUPPLY Qty: 1 0RF Rx Instructions: blood pressure checks daily and as needed large cuff please ibuprofen 600 mg tablet 600 mg PO Q8H PRN (Reason: pain) Qty: 30 2RF acetaminophen [Tylenol Extra Strength] 500 mg tablet 500 mg PO Q6H PRN (Reason: fever or pain) Qty: 30 2RF hydroxyzine HCl 50 mg tablet 50 mg PO BEDTIME Qty: 5 0RF Referrals: Neel Kothari, [employer] [Primary Care Provider] - Stand Alone Forms: Work/School Release Interventions: ED Discharge Assessment Last Done: 06/07/23 17:21 Discharge Date/Time: 06/07/23 17:22 Print Language: Belgian
[2023-06-07 13:00] LABS: MANUAL DIFF FLAG NO
[2023-06-07 13:02] LABS: Basophils Percent Auto 0.3 % (0-2); Eosinophils Absolute Auto 0.1 X10*3/uL (0.0-0.4); Eosinophils Percent Auto 1.6 % (0-4); Hematocrit 45.7 % (42.0-52.0); Hemoglobin 15.7 g/dl (14.0-18.0); Imm Gran Abs Auto 0.01 X10*3/uL (0.00-0.03); Imm Gran Pct Auto 0.2 % (0.0-0.4); Lymphocytes Percent Auto 31.5 % (20-40); Mean Corpuscular HGB Conc 34.4 g/dl (31.0-36.0); Mean Corpuscular Hemoglobin 30.3 pg (27.0-33.0); Mean Corpuscular Volume 88.1 fL (80.0-98.0); Mean Platelet Volume 9.9 fL (9.4-12.4); Monocytes Absolute Auto 0.4 X10*3/uL (0.1-1.2); Monocytes Percent Auto 6.7 % (2-11); Neutrophils Absolute Auto 3.8 x10*3/uL (2.0-8.3); Neutrophils Percent Auto 59.7 % (45-73); Platelet Count 226 X10*3/uL (160-400); Red Blood Count 5.19 X10*6/uL (4.60-5.80); Red Cell Distribution Width 12.7 % (11.0-16.0); White Blood Count 6.4 X10*3/uL (4.8-10.8)
[2023-06-07 13:24] LABS: Alanine Aminotransferase 22 U/L (0-40); Albumin Level 4.8 g/dL (3.5-5.0); Alkaline Phosphatase 64 U/L (39-117); Anion Gap 13 (12-20); Aspartate Amino Transferase 22 U/L (5-37); Bilirubin Total 0.4 mg/dL (0.0-1.0); Blood Urea Nitrogen 14 mg/dL (9-16); Calcium 9.5 mg/dL (8.4-10.2); Carbon Dioxide 27 mmol/L (22-29); Chloride 104 mmol/L (96-108); Creatinine Clr Calc Pharmacy 165.7; Estimated Glomerular Filt Rate > 60; Glucose Random 88 mg/dL (60-115); Lipase 18 U/L (8-78); Magnesium 2.1 mg/dL (1.6-2.6); Potassium 4.3 mmol/L (3.3-5.1); Sodium 140 mmol/L (135-145); Total Protein 7.8 g/dL (6.5-8.0)
[2023-06-07 14:09] LABS: Influenza A PCR NEGATIVE (Negative); Influenza B PCR NEGATIVE (Negative); Resp Syncy Virus RNA Qual PCR NEGATIVE (Negative); SARS COV2 PCR INHOUSE NEGATIVE (Negative)
== END 2023-06-07 17:22 | disposition home or self-care (01) ==
PROVIDERS: Physician Assistant Medical; Emergency Provider Emergency Medicine Emergency Medical Services; PCP Nurse Practitioner Family
DX: R53.83 Other fatigue (principal); K50.90 Crohn's disease, unspecified, without complications; Z11.52 Encounter for screening for COVID-19; Z20.828 Contact with and (suspected) exposure to other viral communicable diseases; Z88.0 Allergy status to penicillin
CPT/HCPCS: 0241U; 36415; 80053; 83690; 83735; 85025; 99282; 99283

== ENCOUNTER 2023-06-23 14:02 | Emergency (ER) | payer OTHER, SELFPAY ==
[2023-06-23 15:26] VITALS: BP 137/78; PULSE 62; RESP 18; TEMP 36.9; O2SAT 98; BMI 28.2
--- NOTE | 2023-06-23 15:46 | ED_ITS ---
HPI - General Adult General Chief complaint: Abdominal Pain Stated complaint: Diarrhea Stomach Pain Time Seen by Provider: 06/23/23 19:28 Source: patient Mode of arrival: ambulatory Limitations: no limitations History of Present Illness HPI narrative: Patient is a 27 year old assigned male at with a history of crohn's disease presenting to the emergency department today with abdominal pain, nausea, vomiting, and diarrhea. Patient states that over the last 3 days he had intermittent abdominal pain, nausea, vomiting, and diarrhea. Patient denies any dizziness, lightheadedness, fever, chills, blurry vision, double vision, loss of vision, chest pain, difficulty breathing, shortness of breath, back pain, night sweats, pain with urination, increased urinary frequency, increased urinary urgency, blood in his urine or stool, syncope or a near syncopal episode, recent trauma or falls, bowel incontinence, bladder incontinence, bowel retention, bladder retention, or any other complaints at this time. Onset (ago): day(s) (3) Severity: mild Severity scale (1-10): 3 Relieving factors: none Exacerbating factors: none Associated symptoms: nausea/vomiting Treatments prior to arrival: none Related Data Previous Rx's Medication Instructions Recorded miscellaneous medical supply #1 ea 06/04/21 (Blood Pressure Cuff) acetaminophen 500 mg tablet 500 mg PO Q6H PRN fever or pain 02/17/23 (Tylenol Extra Strength) #30 tabs ibuprofen 600 mg tablet 600 mg PO Q8H PRN pain #30 tabs 02/17/23 hydroxyzine HCl 50 mg tablet 50 mg PO BEDTIME #5 tabs 05/19/23 ondansetron 4 mg disintegrating 4 mg PO Q8H 3 days #9 tabs 06/23/23 tablet vedolizumab 300 mg intravenous 300 mg IV QWEEK #1 ea 06/23/23 solution (Entyvio) Allergies Allergy/AdvReac Type Severity Reaction Status Date / Time penicillin V Allergy Intermediate rash Verified 05/19/23 13:06 Review of Systems 2 Constitutional: Constitutional: Reports no additional constitutional complaints, Denies chills, Denies fever(s) and Denies night sweats Eyes: Eyes: Reports no additional eye complaints, Denies blurry vision, Denies change in vision, Denies diplopia, Denies eye discharge, Denies loss of vision and Denies eye pain ENT: Denies dizziness Cardiovascular: Cardiovascular: Reports no additional cardiovascular complaints, Denies chest pain, Denies lightheadedness, Denies Loss of Consciousness and Denies dyspnea Respiratory: Respiratory: Reports no additional respiratory complaints and Denies dyspnea Gastrointestinal: Gastrointestinal: Reports no additional gastrointestinal complaints, Reports abdominal pain, Denies melena, Denies hematochezia, Denies change in bowel habits, Denies change in stool character, Reports diarrhea, Reports nausea and Reports vomiting Genitourinary: Genitourinary: Reports no additional male genitourinary complaints, Denies hematuria, Denies oliguria, Denies difficulty urinating, Denies dysuria, Denies urinary frequency, Denies urinary hesitancy, Denies urinary incontinence and Denies urinary urgency Musculoskeletal: Musculoskeletal: Reports no additional musculoskeletal complaints, Denies numbness and Denies tingling Neurologic: Denies dizziness, Denies loss of vision, Denies numbness and Denies tingling Psychiatric: Psychiatric: Reports no additional psychiatric complaints Endocrine: Endocrine: Reports no additional endocrine complaints Hematologic/Lymphatic: Hematologic/Lymphatic: Reports no additional hematologic/lymphatic complaints Allergic/Immunologic: Allergic/Immunologic: Reports no additional allergic/immunologic complaints [facility] Past Medical History Attestation statement: The following information was validated with the patient. 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 Mother Hypertension Maternal Grandfather Diabetes Stroke Other Anemia Social History Social History Household Members: Friend(s) Housing: Apartment Do you presently have visiting nurse or other home services: No Alcohol intake: never Patient Tobacco Use Status: Former Tobacco user e-Cigarette/Vaping Use: Never Used Second Hand Smoke Exposure: No service: No Current occupational status: employed Current occupation: [employer] Cognitive needs: No Hearing needs: No Vision needs: No Physical Exam ED Vital Signs: Vital Signs - 24 hr 06/23/23 19:08 Temperature 98.8 F Pulse Rate 60 Respiratory Rate 16 Blood Pressure 153/83 H Pulse Oximetry 99 Oxygen Delivery Method Room Air BMI result Body Mass Index 28.2 Const General: cooperative, no acute distress, alert and awake Nutritional Appearance: well nourished Orientation/consciousness: patient oriented x3 Limitations: no limitations HENMT Head: Yes normal to inspection and Yes atraumatic Ears: hearing grossly normal bilaterally and external ears normal General nose exam: Normal external nose present, no nasal discharge noted and no epistaxis Face and sinus: Yes normal facial exam, No abrasion and No laceration Mouth: Normal oral and palatal mucosa present, no drooling and no muffled voice Eyes General: appearance normal, both eyes and all related structures Periorbital: periorbital findings normal Eyelids: Yes eyelids normal Conjunctivae: conjunctivae normal Pupils: Equal, round and reactive pupils present EOM: EOMs intact bilaterally Neck Neck: Yes normal visual inspection, Yes full ROM and Yes no lymphadenopathy Chest Chest palpation & inspection: normal inspection of the chest Resp Effort & Inspection: normal respiratory effort and able to speak in complete sentences GI Inspection: Yes normal to inspection Palpation (GI): Soft to palpation Neuro General: patient oriented x3 and moves all extremities Cranial nerves: Yes Equal, round and reactive pupils present Cognition (Neuro): normal cognition Motor exam (neuro): 5/5 motor strength present throughout Sensory Exam: Normal double simultaneous stimulation for sensation Coordination: [id number] test normal Extrem General: Yes normal to inspection, Yes full ROM and Yes capillary refill normal Psych Appearance: grossly normal Mental Status: mental status grossly normal Affect: normal affect Attitude: cooperative Thought process: Normal thought process present Thought content: Normal thought content present Insight: Good insight present (Psych) Course Course Course Narrative: Patient complains of diarrhea for 2 days, he does have a history of Crohn's and does take medication for it which has been working well, there is someone else at work who had a stomach bug recently He has not dizzy or weak Labs and serology are sent Medications Administered Discontinued Medications Generic Name Dose Route Start Last Admin Trade Name Freq PRN Reason Stop Dose Admin Omeprazole 20 mg 06/23/23 19:39 06/23/23 20:19 Omeprazole 20 [address]Dr LUGO 06/23/23 19:40 20 mg ONCE ONE Administration Ondansetron HCl 4 mg 06/23/23 19:39 06/23/23 20:19 Ondansetron Odt 4 Mg Tab.Lila DEL RIO 06/23/23 19:40 4 mg ONCE ONE Administration Medical Decision Making Medical Decision Making [facility] Narrative: Patient is a 27 year old assigned male at with a history of Crohn's disease presenting to the emergency department today with abdominal pain, nausea, vomiting, and diarrhea. Patient's physical exam was unremarkable. Patient's blood work was unremarkable. I explained my physical exam findings as well as all test results to the patient. I answered all questions asked by the patient. I stressed the importance of the patient taking his medication as prescribed. I stressed the importance of the patient following up with his primary care provider. I stressed the importance of the patient returning to the emergency department immediately if his symptoms were to worsen or if he were to develop any dizziness, shortness of breath, difficulty breathing, chest pain, blurry vision, loss of vision, nausea, vomiting, abdominal pain, fever, chills, back pain, or any other complaints. Patient verbalized agreement and understanding with this treatment plan and discharge. Differential Diagnosis Differential Diagnoses: The differential diagnosis associated with the presentation includes Gastroenteritis Nausea Vomiting COVID-19 Influenza Admission/Observation Consideration of admission/observation: Escalation of care including admission/observation considered Patient would have been admitted to the hospital had his work up had any findings where hospital admission was appropriate and his clinical presentation warranted hospital admission. Lab Data [facility] Lab Attestation statement: I reviewed the patient's lab results. My interpretation of these studies and their corresponding values is that they are grossly normal. 06/23/23 16:35 06/23/23 16:35 Labs: Lab Results 06/23/23 Range/Units 16:35 WBC 6.4 (4.8-10.8) X10*3/uL RBC 5.03 (4.60-5.80) X10*6/uL Hgb 15.2 (14.0-18.0) g/dl Hct 44.0 (42.0-52.0) % MCV 87.5 (80.0-98.0) fL MCH 30.2 (27.0-33.0) pg MCHC 34.5 (31.0-36.0) g/dl RDW 12.9 (11.0-16.0) % Plt Count 193 (160-400) X10*3/uL MPV 9.7 (9.4-12.4) fL Immature Gran % (Auto) 0.0 (0.0-0.4) % Neut % (Auto) 56.8 (45-73) % Lymph % (Auto) 33.6 (20-40) % [place] % (Auto) 7.1 (2-11) % Eos % (Auto) 2.2 (0-4) % Baso % (Auto) 0.3 (0-2) % Lymph # (Auto) 2.1 (1.2-4.9) X10*3/uL [place] # (Auto) 0.5 (0.1-1.2) X10*3/uL Eos # (Auto) 0.1 (0.0-0.4) X10*3/uL Baso # (Auto) 0.0 (0.0-0.2) X10*3/uL Abs Immat Gran (auto) 0.00 (0.00-0.03) X10*3/uL Absolute Neuts (auto) 3.6 (2.0-8.3) x10*3/uL Absolute Nucleated RBC 0.000 (0.0-0.012) X10*3/uL Nucleated RBC % (auto) 0.0 (0.0-0.2) /100WBC Sodium 140 (135-145) mmol/L Potassium 4.6 (3.3-5.1) mmol/L Chloride 107 (96-108) mmol/L Carbon Dioxide 29 (22-29) mmol/L Anion Gap 9 L (12-20) BUN 14 (9-16) mg/dL Creatinine 0.74 (0.5-1.4) mg/dL Estim Creat Clear Calc 189.2 Estimated GFR > 60 Random Glucose 87 (60-115) mg/dL Calcium 9.5 (8.4-10.2) mg/dL Total Bilirubin 0.4 (0.0-1.0) mg/dL Direct Bilirubin 0.1 (0.0-0.5) mg/dL AST 45 H (5-37) U/L ALT 42 H (0-40) U/L Alkaline Phosphatase 59 (39-117) U/L Total Protein 7.4 (6.5-8.0) g/dL Albumin 4.6 (3.5-5.0) g/dL Lipase 21 (8-78) U/L Influenza Type A (PCR) NEGATIVE (Negative) Influenza Type B (PCR) NEGATIVE (Negative) RSV RNA Qual (PCR) NEGATIVE (Negative) SARS-CoV-2 RNA (RT-PCR) NEGATIVE (Negative) Tests considered The following testing was considered but not selected: A CT of the abdomen/pelvis was considered however, the patient's current clinical presentation and work up did not warrant it. I discussed this with the patient who verbalized agreement and understanding. Discharge Plan Discharge Clinical Impression: Gastroenteritis Patient Disposition: Home, Self-Care Instructions: Gastroenteritis (DC) Additional Instructions: Follow up with your primary care provider. Return to the emergency department immediately if your symptoms worsen or if you develop any dizziness, shortness of breath, difficulty breathing, chest pain, blurry vision, loss of vision, nausea, vomiting, abdominal pain, fever, chills, back pain, or any other complaints. Prescriptions: New ondansetron 4 mg tablet,disintegrating 4 mg PO Q8H 3 Days Qty: 9 0RF No Action Entyvio 300 mg recon soln 300 mg IV QWEEK Qty: 1 3RF (DME) Blood Pressure Cuff Misc See Rx Instructions .ROUTE .MEDSUPPLY Qty: 1 0RF Rx Instructions: blood pressure checks daily and as needed large cuff please ibuprofen 600 mg tablet 600 mg PO Q8H PRN (Reason: pain) Qty: 30 2RF acetaminophen [Tylenol Extra Strength] 500 mg tablet 500 mg PO Q6H PRN (Reason: fever or pain) Qty: 30 2RF hydroxyzine HCl 50 mg tablet 50 mg PO BEDTIME Qty: 5 0RF Referrals: Neel Kothari CNP [Primary Care Provider] - Stand Alone Forms: Work/School Release Interventions: ED Discharge Assessment Last Done: 06/23/23 20:25 Discharge Date/Time: 06/23/23 20:26 Print Language: Icelandic
[2023-06-23 16:39] LABS: MANUAL DIFF FLAG NO
[2023-06-23 16:41] LABS: Basophils Percent Auto 0.3 % (0-2); Eosinophils Absolute Auto 0.1 X10*3/uL (0.0-0.4); Eosinophils Percent Auto 2.2 % (0-4); Hemoglobin 15.2 g/dl (14.0-18.0); Lymphocytes Absolute Auto 2.1 X10*3/uL (1.2-4.9); Lymphocytes Percent Auto 33.6 % (20-40); Mean Corpuscular HGB Conc 34.5 g/dl (31.0-36.0); Mean Corpuscular Hemoglobin 30.2 pg (27.0-33.0); Mean Corpuscular Volume 87.5 fL (80.0-98.0); Mean Platelet Volume 9.7 fL (9.4-12.4); Monocytes Absolute Auto 0.5 X10*3/uL (0.1-1.2); Monocytes Percent Auto 7.1 % (2-11); Neutrophils Absolute Auto 3.6 x10*3/uL (2.0-8.3); Neutrophils Percent Auto 56.8 % (45-73); Platelet Count 193 X10*3/uL (160-400); Red Blood Count 5.03 X10*6/uL (4.60-5.80); Red Cell Distribution Width 12.9 % (11.0-16.0); White Blood Count 6.4 X10*3/uL (4.8-10.8)
[2023-06-23 16:57] LABS: Albumin Level 4.6 g/dL (3.5-5.0); Alkaline Phosphatase 59 U/L (39-117); Anion Gap 9 (12-20); Bilirubin Total 0.4 mg/dL (0.0-1.0); Blood Urea Nitrogen 14 mg/dL (9-16); Calcium 9.5 mg/dL (8.4-10.2); Carbon Dioxide 29 mmol/L (22-29); Chloride 107 mmol/L (96-108); Creatinine Clr Calc Pharmacy 189.2; Estimated Glomerular Filt Rate > 60; Glucose Random 87 mg/dL (60-115); Lipase 21 U/L (8-78); Potassium 4.6 mmol/L (3.3-5.1); Sodium 140 mmol/L (135-145); Total Protein 7.4 g/dL (6.5-8.0)
[2023-06-23 17:25] LABS: Influenza A PCR NEGATIVE (Negative); Influenza B PCR NEGATIVE (Negative); Resp Syncy Virus RNA Qual PCR NEGATIVE (Negative); SARS COV2 PCR INHOUSE NEGATIVE (Negative)
[2023-06-23 17:50] LABS: Alanine Aminotransferase 42 U/L (0-40); Aspartate Amino Transferase 45 U/L (5-37); Bilirubin Direct 0.1 mg/dL (0.0-0.5)
[2023-06-23 19:08] VITALS: BP 153/83; PULSE 60; RESP 16; TEMP 37.1; O2SAT 99
[2023-06-23] MEDS: Ondansetron ODT 4 MG TAB.RAPDIS TRANSLINGU (20:19)
[2023-06-23] MEDS: Omeprazole 20 MG CAPSULE.DR PO (20:19)
--- NOTE | 2023-06-23 20:24 | PC.NURSE ---
pt medicated according to mar. pt calm and cooperative. pt ambulatory at discharge denies pain. pt provided with discharge packet. pt verbalized understanding of discharge plan
== END 2023-06-23 20:26 | disposition home or self-care (01) ==
PROVIDERS: Physician Assistant Medical; Emergency Provider Emergency Medicine; PCP Nurse Practitioner Family
DX: K52.9 Noninfective gastroenteritis and colitis, unspecified (principal); R10.30 Lower abdominal pain, unspecified; R11.2 Nausea with vomiting, unspecified; Z79.899 Other long term (current) drug therapy; Z11.52 Encounter for screening for COVID-19; Z20.822 Contact with and (suspected) exposure to COVID-19
CPT/HCPCS: 0241U; 80048; 80076; 83690; 85025; 99283; 99284

== ENCOUNTER 2023-06-30 07:38 | Outpatient (REF) | payer OTHER, SELFPAY ==
[2023-06-30 07:40] VITALS: BP 136/77; PULSE 68; RESP 16; TEMP 37.1; O2SAT 99; BMI 28.5
--- NOTE | 2023-06-30 07:40 | PC.NURSE ---
pharmacy called for sander
[2023-06-30] MEDS: Vedolizumab 300 MG in 0.9 % Sodium Chloride 250 ML 510 MG IV (08:30)
[2023-06-30 08:56] VITALS: BP 113/69; PULSE 60; RESP 16; O2SAT 100
== END 2023-06-30 07:39 | disposition home or self-care (01) ==
LOC: HO.MDS 07:38
PROVIDERS: Visit Provider Internal Medicine Gastroenterology
DX: K50.90 Crohn's disease, unspecified, without complications (principal)
CPT/HCPCS: 96365; J3380

== ENCOUNTER 2023-07-08 16:57 | Emergency (ER) | payer OTHER, SELFPAY ==
--- NOTE | ~2023-07-08 | CT_ITS ---
EXAMINATION: CT ABDOMEN AND PELVIS WITH CONTRAST CLINICAL INFORMATION: Periumbilical pain. History of Crohn's disease.. Small bowel obstruction. COMPARISON: CT abdomen pelvis 12/26/2022 TECHNIQUE: Multidetector volumetric images were obtained from the superior aspect of the liver through the pubic symphysis following administration 85 mL of Omnipaque 350 intravenous contrast. Sagittal and coronal reformatted images were obtained on the technologist's workstation. Oral contrast: No This CT examination was performed using dose optimization techniques as appropriate, variously including the following: *Automated exposure control *Adjustment of mA and/or kV according to patient size (this includes techniques or standardized protocols for targeted exams where dose is matched to indication/reason for exam; i.e. extremities or head) *Use of iterative reconstruction technique DLP: 671 mGy-cm FINDINGS: LUNG BASES: The visualized lung bases are unremarkable. LIVER, GALLBLADDER, AND BILIARY TREE: The liver is normal in size, shape, and attenuation. No focal hepatic lesion or biliary ductal dilatation is present. The gallbladder is unremarkable with no evidence of radiopaque gallstones, gallbladder wall thickening, or obvious pericholecystic inflammatory changes. PANCREAS: Unremarkable. SPLEEN: Unremarkable. ADRENAL GLANDS: Unremarkable. KIDNEYS AND URETERS: The kidneys are normal in size, shape, and attenuation. No hydronephrosis, hydroureter, or calculi seen. No perinephric stranding. BLADDER: Unremarkable. GASTROINTESTINAL TRACT: There is large amount of stool and gas seen in the colon without distention. The small bowel loops are normal caliber. The stomach is nondistended with mild wall thickening. No free air or free fluid. ABDOMINAL WALL: No significant hernia is appreciated. LYMPH NODES: Normal. VASCULAR: Unremarkable. PELVIC VISCERA: Unremarkable. OSSEOUS STRUCTURES: There is loss of disc space and vacuum disc phenomena L5-S1 disc level. There is mild superior endplate L5 Schmorl's node. Rest of the visualized lumbar spine appears unremarkable. CT/CT abdomen pelvis w IV con IMPRESSION: 1. No acute intra-abdominal process seen. 2. Moderate constipation. 3. No major change from 12/26/2022 Fleischner guidelines were followed.
--- NOTE | ~2023-07-08 | XR_ITS ---
EXAMINATION: XR ABDOMEN KUB CLINICAL INDICATION: Abdominal pain. History of residual. COMPARISON: None available. TECHNIQUE: AP view of the abdomen. FINDINGS: The bowel gas pattern is normal with no evidence of ileus or obstruction. No unusual soft tissue calcifications are noted. The bones are unremarkable. XR/XR KUB IMPRESSION: Unremarkable abdomen examination.
[2023-07-08 17:16] VITALS: BP 126/84; PULSE 65; RESP 18; TEMP 36.9; O2SAT 100; BMI 31.2
--- NOTE | 2023-07-08 17:17 | ED_ITS ---
HPI - Abdominal Pain General Chief Complaint: Abdominal Pain Stated Complaint: stomach pain Time Seen by Provider: 07/08/23 21:03 Source: patient Mode of arrival: ambulatory Limitations: no limitations History of Present Illness HPI narrative: Patient comes to the emergency room complaining of periumbilical pain that started approximately 2 days ago. Patient denies nausea vomiting diarrhea or constipation. Patient denies alcohol abuse. Patient states that he has the same periumbilical pain that he had about 3 years ago when he was diagnosed with a small-bowel obstruction secondary to a Crohn's flare. Related Data Home Medications Medication Instructions Recorded Confirmed vedolizumab 300 mg intravenous 300 mg IV .EVERY OTHER MONTH 06/28/23 solution (Entyvio) Previous Rx's Medication Instructions Recorded miscellaneous medical supply #1 ea 06/04/21 (Blood Pressure Cuff) acetaminophen 500 mg tablet 500 mg PO Q6H PRN fever or pain 02/17/23 (Tylenol Extra Strength) #30 tabs ibuprofen 600 mg tablet 600 mg PO Q8H PRN pain #30 tabs 02/17/23 ondansetron 4 mg disintegrating 4 mg PO Q8H 3 days #9 tabs 06/23/23 tablet bupropion HCl 150 mg tablet,12 hr 150 mg PO QAM 30 days #30 tabs 06/28/23 sustained-release (Wellbutrin SR) hydroxyzine HCl 25 mg tablet 25 mg PO BID PRN anxiety 30 days 06/28/23 #90 tabs hyoscyamine sulfate 0.125 mg tablet 0.125 mg PO QID PRN dyspepsia #10 07/08/23 tabs Allergies Allergy/AdvReac Type Severity Reaction Status Date / Time penicillin V Allergy Intermediate rash Verified 07/08/23 17:16 Review of Systems Review of Systems Constitutional : No Weight loss, No Fever, No Chills, No Night Sweats, No Fatigue, No Malaise ENT/Mouth : No Hearing loss, No Ear Pain, No Nasal Congestion, No Sinus Pain, No Hoarseness, No sore throat, No Rhinorrhea, No Swallowing Difficulty Eyes: No Eye Pain, No Swelling, No Redness, No Foreign Body, No Discharge, No Vision Changes Cardiovascular : No Chest Pain, No SOB, No Dyspnea on Exertion, No Orthopnea, No Edema, No Palpitations Respiratory : No Cough, No Sputum, No Wheezing, No Smoke Exposure, No Dyspnea Gastrointestinal : No Nausea, No Vomiting, No Diarrhea, No Constipation, complaining of periumbilical pain Genitourinary : no irregular bleeding, No Dysuria, No Urinary Frequency, No Hematuria, No Urinary Incontinence, No Urgency, No Flank Pain, No Urinary Flow Changes, No Hesitancy Musculoskeletal : No joint pain, No Myalgias, No Joint Swelling Skin : No Skin Lesions, No rash Neuro : No Weakness, No Numbness, No Paresthesias, No Loss of Consciousness, No Dizziness, No Headache Psych : No Anxiety/Panic, No Depression, No SI/HI/AH/VH, No Social Issues, Heme/Lymph: No Bruising, No Bleeding,No Lymphadenopathy Endocrine : No Polyuria, No Polydipsia, No Temperature Intolerance PMF Past Medical History Medical History ADHD (attention deficit hyperactivity disorder) 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 Mother Hypertension Maternal Grandfather Diabetes Stroke Other Anemia Social History Social History Household Members: Friend(s) Housing: Apartment Do you presently have visiting nurse or other home services: No Alcohol intake: never Patient Tobacco Use Status: Former Tobacco user e-Cigarette/Vaping Use: Never Used Second Hand Smoke Exposure: No Advance Directives: No Advance Directives Information Provided: No service: No Current occupational status: employed Current occupation: [employer] Cognitive needs: No Hearing needs: No Vision needs: No Physical Exam ED Vital Signs: Vital Signs - 24 hr 07/08/23 17:16 07/08/23 20:38 07/08/23 22:00 Temperature 98.5 F 97.9 F 97.8 F Pulse Rate 65 66 60 Respiratory Rate 18 12 12 Blood Pressure 126/84 140/71 H 125/73 Pulse Oximetry 100 100 99 Oxygen Delivery Method Room Air Room Air Room Air BMI result Body Mass Index 31.2 Const Other: Appearance: Alert. Oriented X3. No acute distress. Well-appearing Eyes: Pupils equal, round and reactive to light. ENT: Pharynx normal. Neck: Normal inspection. Neck supple. No lymph nodes noted. No crepitus CVS: Normal heart rate and rhythm. Pulses normal. Normal S1 and S2 Respiratory: No respiratory distress. Breath sounds normal. No Wheezing. No rales Abdomen: Soft moderate pain to palpation in epigastric and periumbilical area, no rebound or guarding, No rigidity. No distention. Skin: Skin warm and dry. Normal skin color. Normal skin turgor. Extremities: No lower extremity edema. No Lacerations. No Rash Neuro: Oriented X 3. No motor deficit. No sensory deficit. Moving all extremities. No slurred speech. CN 2 through 12 grossly intact Psych: calm, cooperative, normal affect Course Course Course Narrative: RME:?28 yo male hx of crohn disease here for eval of periumbilical abd pain that began yesterday. pain is constant. 8/10 pain. denies n/v/d, constipation. Last BM this morning. Reports pain feels like previous bowel obstruction (6 mos ago). denies recent travel. labs, imaging ordered. Full HPI, ROS and PE to be performed by the primary ED provider. Medical Decision Making Medical Decision Making [facility] Narrative: -my interpretation of labs: Hematology and chemistry within normal limits, lipase normal. KUB does not show any obvious signs of obstruction. -however, patient is still complaining of ongoing abdominal pain. I compared patient's labs to his previous admission for small-bowel obstruction, the labs in 2020 did not show any obvious abnormality. -discussed with the patient that the best next step would be to get a CT scan, I who is with time. -my interpretation of CT scan, no obvious abnormality. -Patient states that he has an appointment tomorrow with Dr. Khan from Gastroenterology Differential Diagnosis Differential Diagnoses: The differential diagnosis associated with the presentation includes (Crohn's flare, SBO, diverticulitis) Admission/Observation Consideration of admission/observation: Escalation of care including admission/observation considered (Given patient's history and symptoms, admission was considered) Lab Data [facility] Lab Attestation statement: I reviewed the patient's lab results. 07/08/23 18:07 07/08/23 18:07 Labs: Lab Results 07/08/23 Range/Units 18:07 WBC 7.6 (4.8-10.8) X10*3/uL RBC 5.06 (4.60-5.80) X10*6/uL Hgb 15.1 (14.0-18.0) g/dl Hct 44.7 (42.0-52.0) % MCV 88.3 (80.0-98.0) fL MCH 29.8 (27.0-33.0) pg MCHC 33.8 (31.0-36.0) g/dl RDW 13.0 (11.0-16.0) % Plt Count 217 (160-400) X10*3/uL MPV 9.6 (9.4-12.4) fL Immature Gran % (Auto) 0.1 (0.0-0.4) % Neut % (Auto) 57.9 (45-73) % Lymph % (Auto) 33.7 (20-40) % [place] % (Auto) 7.0 (2-11) % Eos % (Auto) 0.9 (0-4) % Baso % (Auto) 0.4 (0-2) % Lymph # (Auto) 2.6 (1.2-4.9) X10*3/uL [place] # (Auto) 0.5 (0.1-1.2) X10*3/uL Eos # (Auto) 0.1 (0.0-0.4) X10*3/uL Baso # (Auto) 0.0 (0.0-0.2) X10*3/uL Abs Immat Gran (auto) 0.01 (0.00-0.03) X10*3/uL Absolute Neuts (auto) 4.4 (2.0-8.3) x10*3/uL Absolute Nucleated RBC 0.000 (0.0-0.012) X10*3/uL Nucleated RBC % (auto) 0.0 (0.0-0.2) /100WBC Sodium 144 (135-145) mmol/L Potassium 4.8 (3.3-5.1) mmol/L Chloride 106 (96-108) mmol/L Carbon Dioxide 29 (22-29) mmol/L Anion Gap 14 (12-20) BUN 14 (9-16) mg/dL Creatinine 0.83 (0.5-1.4) mg/dL Estim Creat Clear Calc 165.4 Estimated GFR > 60 Random Glucose 92 (60-115) mg/dL Calcium 10.2 D (8.4-10.2) mg/dL Magnesium 2.1 (1.6-2.6) mg/dL Total Bilirubin 0.6 (0.0-1.0) mg/dL AST 24 (5-37) U/L ALT 24 (0-40) U/L Alkaline Phosphatase 57 (39-117) U/L Total Protein 7.5 (6.5-8.0) g/dL Albumin 4.8 (3.5-5.0) g/dL Lipase 17 (8-78) U/L Independent Interpretation I performed an independent interpretation of an: CT Scan Radiology Impression Discussion of test interpretation with radiology: I have reviewed the radiologist's reading. Radiologist Impression: FINDINGS: LUNG BASES: The visualized lung bases are unremarkable. LIVER, GALLBLADDER, AND BILIARY TREE: The liver is normal in size, shape, and attenuation. No focal hepatic lesion or biliary ductal dilatation is present. The gallbladder is unremarkable with no evidence of radiopaque gallstones, gallbladder wall thickening, or obvious pericholecystic inflammatory changes. PANCREAS: Unremarkable. SPLEEN: Unremarkable. ADRENAL GLANDS: Unremarkable. KIDNEYS AND URETERS: The kidneys are normal in size, shape, and attenuation. No hydronephrosis, hydroureter, or calculi seen. No perinephric stranding. BLADDER: Unremarkable. GASTROINTESTINAL TRACT: There is large amount of stool and gas seen in the colon without distention. The small bowel loops are normal caliber. The stomach is nondistended with mild wall thickening. No free air or free fluid. ABDOMINAL WALL: No significant hernia is appreciated. LYMPH NODES: Normal. VASCULAR: Unremarkable. PELVIC VISCERA: Unremarkable. OSSEOUS STRUCTURES: There is loss of disc space and vacuum disc phenomena L5-S1 disc level. There is mild superior endplate L5 Schmorl's node. Rest of the visualized lumbar spine appears unremarkable. CT/CT abdomen pelvis w IV con IMPRESSION: 1. No acute intra-abdominal process seen. 2. Moderate constipation. 3. No major change from 12/26/2022 External Record Review External record reviewed: Inpatient record Medications Administered Discontinued Medications Generic Name Dose Route Start Last Admin Trade Name Freq PRN Reason Stop Dose Admin Iohexol 85 ml 07/08/23 21:39 07/08/23 21:40 Iohexol 350 Mg/Ml 100 Ml Infus..Btl IV 07/08/23 21:40 85 ml ONCE ONE Administration Critical Care Time Critical Care Time Critical Care Time: Yes Total Critical Care Time: 45 Attestation: I have personally provided critical care time. Time includes review of lab data, radiology results, discussion with consultants, and monitoring for potential decompensation. Intervention performed as documented. Discharge Plan Discharge Clinical Impression: Abdominal pain Patient Disposition: Home, Self-Care Instructions: Abdominal Pain (ED) Additional Instructions: Please follow-up with your primary care physician tomorrow. If you have any worsening or new symptoms, please return to the emergency room or call 911 Prescriptions: New hyoscyamine sulfate 0.125 mg tablet 0.125 mg PO QID PRN (Reason: dyspepsia) Qty: 10 0RF No Action ondansetron 4 mg tablet,disintegrating 4 mg PO Q8H 3 Days Qty: 9 0RF (DME) Blood Pressure Cuff Misc See Rx Instructions .ROUTE .MEDSUPPLY Qty: 1 0RF Rx Instructions: blood pressure checks daily and as needed large cuff please bupropion HCl [Wellbutrin SR] 150 mg tablet sustained-release 12 hr 150 mg PO QAM 30 Days Qty: 30 3RF hydroxyzine HCl 25 mg tablet 25 mg PO BID PRN (Reason: anxiety) 30 Days Qty: 90 1RF Entyvio 300 mg recon soln 300 mg IV .EVERY OTHER MONTH ibuprofen 600 mg tablet 600 mg PO Q8H PRN (Reason: pain) Qty: 30 2RF acetaminophen [Tylenol Extra Strength] 500 mg tablet 500 mg PO Q6H PRN (Reason: fever or pain) Qty: 30 2RF
[2023-07-08 18:18] LABS: MANUAL DIFF FLAG NO
[2023-07-08 18:20] LABS: Basophils Percent Auto 0.4 % (0-2); Eosinophils Absolute Auto 0.1 X10*3/uL (0.0-0.4); Eosinophils Percent Auto 0.9 % (0-4); Hematocrit 44.7 % (42.0-52.0); Hemoglobin 15.1 g/dl (14.0-18.0); Imm Gran Abs Auto 0.01 X10*3/uL (0.00-0.03); Imm Gran Pct Auto 0.1 % (0.0-0.4); Lymphocytes Absolute Auto 2.6 X10*3/uL (1.2-4.9); Lymphocytes Percent Auto 33.7 % (20-40); Mean Corpuscular HGB Conc 33.8 g/dl (31.0-36.0); Mean Corpuscular Hemoglobin 29.8 pg (27.0-33.0); Mean Corpuscular Volume 88.3 fL (80.0-98.0); Mean Platelet Volume 9.6 fL (9.4-12.4); Monocytes Absolute Auto 0.5 X10*3/uL (0.1-1.2); Neutrophils Absolute Auto 4.4 x10*3/uL (2.0-8.3); Neutrophils Percent Auto 57.9 % (45-73); Platelet Count 217 X10*3/uL (160-400); Red Blood Count 5.06 X10*6/uL (4.60-5.80); White Blood Count 7.6 X10*3/uL (4.8-10.8)
[2023-07-08 18:37] LABS: Alanine Aminotransferase 24 U/L (0-40); Albumin Level 4.8 g/dL (3.5-5.0); Alkaline Phosphatase 57 U/L (39-117); Anion Gap 14 (12-20); Aspartate Amino Transferase 24 U/L (5-37); Bilirubin Total 0.6 mg/dL (0.0-1.0); Blood Urea Nitrogen 14 mg/dL (9-16); Calcium 10.2 mg/dL (8.4-10.2); Carbon Dioxide 29 mmol/L (22-29); Chloride 106 mmol/L (96-108); Creatinine Clr Calc Pharmacy 165.4; Estimated Glomerular Filt Rate > 60; Glucose Random 92 mg/dL (60-115); Lipase 17 U/L (8-78); Magnesium 2.1 mg/dL (1.6-2.6); Potassium 4.8 mmol/L (3.3-5.1); Sodium 144 mmol/L (135-145); Total Protein 7.5 g/dL (6.5-8.0)
[2023-07-08 20:38] VITALS: BP 140/71; PULSE 66; RESP 12; TEMP 36.6; O2SAT 100
[2023-07-08] MEDS: iohexoL 350 MG/ML 100 ML INFUS..BTL 85 ML IV (21:40)
[2023-07-08 22:00] VITALS: BP 125/73; PULSE 60; RESP 12; TEMP 36.6; O2SAT 99
[2023-07-08 23:00] VITALS: BP 125/73; PULSE 60; RESP 12; TEMP 36.6; O2SAT 99
== END 2023-07-08 23:01 | disposition home or self-care (01) ==
PROVIDERS: Physician Assistant Medical; Emergency Provider Emergency Medicine; PCP Nurse Practitioner Family
DX: R10.9 Unspecified abdominal pain (principal); K50.90 Crohn's disease, unspecified, without complications
CPT/HCPCS: 36415; 74018; 74177; 80053; 83690; 83735; 85025; 99283; 99284; Q9967

== ENCOUNTER 2023-07-09 09:13 | Outpatient (AMB) | payer OTHER, SELFPAY ==
--- NOTE | 2023-07-09 09:13 | A.OFFVIS_ITS ---
Intake Intake Visit Reasons: abdominal pains Intake Note: Tyler presents as a video call for a follow up ED and abdominal pains. CC: Was in the Ed yesterday - they did a CT scan. He states he is having severe pains in his stomach. Was told that he is having constipation. Allergies penicillin V Allergy (Intermediate, Verified 07/09/23 09:15) rash HPI abdominal pains HPI Details 28 yr old m w hx of crohns and non compl iance being seen for f/u RECAP: Initially diagnosed with crohsn aged 17 I saw patient as inpatient consult 02/2021, had also seen him at [facility] where I use to work Pain was sudden onset in the mid abdomen and sharp and stabbing in nature. It was at least 5/10 in severity with no relieving or exacerbating factors. He had no nausea or vomiting, had been passing normal colored stool without blood or melena. Not been using nsaids. No fever or chills, appetite had been good. he is not on any medication for crohns, had been on humira in past but stopped due to intolerance and was lost to follow up with GI thereafter, controlling his disease with diet. Labs significant for WBC count of 13.9, ALT of 49, CRP mildly raised CT with few mildly prominent fecalized small bowel loops in right lower quadrant with adjacent mesenteric stranding and small amount of free fluid suspicious for sequelae of small-bowel obstruction He was commenced on antibiotics and fluids I saw him again and commenced on entyvio he went to ED 11/2021--Ct scan with normal GI tract, no acute inflammation Stool PCR was pos for E coli He then missed the entyvio dose October 2021, and prior dose was 08/2021 so he was restarted on entyvio with re induction dosing MRe: 01/31-- normal EGD/colo: 05/04--internal hemorrhoids and erosive esophagitis --neg inflammation INTERIM: He was feeling return of abdo pain by week 7 on entyvio plan was to increase to q 6 weeks he did go to the Ed due to sharp upper abd pains worse with food since last few days, no diarrhe,a no vomiting or nausea, Ct was done with some degen changes in spine and moderate constipation, to my read also duodenal, gastric thickening labs were nml EXAM: GENERAL: The patient is well developed and nontoxic. 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 Mother Hypertension Maternal Grandfather Diabetes Stroke Other Anemia Social History Household Members: Friend(s) Housing: Apartment Do you presently have visiting nurse or other home services: No Alcohol intake: never Patient Tobacco Use Status: Former Tobacco user e-Cigarette/Vaping Use: Never Used Second Hand Smoke Exposure: No service: No Current occupational status: employed Current occupation: [employer] Cognitive needs: No Hearing needs: No Vision needs: No Assessment & Plan Assessment & Plan (1) Crohn's disease: Code(s): K50.90 - Crohn's disease, unspecified, without complications Plan: see above Medications: New omeprazole 40 mg PO DAILY 30 caps 1RF polyethylene glycol 3350 (Miralax) 17 grams PO BID 238 grams 0RF Telehealth Telehealth Location of provider rendering services: practice address Location of patient: address on file Patient Identification confirmed using: Name, : Yes Telehealth method: video Patient verbally consented to treatment: Yes Patient verbally consented to billing insurance company: Yes Patient informed of any privacy concerns related to visit: Yes Minutes spent on Phone/Video with Pt.: 8 Coding Level of Care Code Tele Est Pt Level 3 (72578) Diagnoses Crohn's disease K50.90
== END 2023-07-09 10:56 | disposition home or self-care (01) ==
LOC: HO.HGI 09:13
PROVIDERS: PCP Nurse Practitioner Family; Visit Provider Internal Medicine Gastroenterology
DX: K50.90 Crohn's disease, unspecified, without complications (principal)
CPT/HCPCS: 99213

== ENCOUNTER → 2023-07-09 09:13 | Outpatient (BNVA) | payer OTHER, SELFPAY | PROVIDERS: PCP Nurse Practitioner Family; Visit Provider Internal Medicine Gastroenterology ==

== ENCOUNTER 2023-07-19 07:54 | Outpatient (AMB) | payer OTHER, SELFPAY ==
--- NOTE | 2023-07-19 08:02 | A.OFFPC_ITS ---
Vital Signs 07/19/23 08:07 Height 6 ft 3 in Weight 231 lb BMI 28.9 BP 128/80 Blood Pressure Location Rt brachial Position Sitting Respiration 12 Pulse 66 Pulse Source Pulse Oximeter Pulse Oximetry (%) 99 Oxygen Delivery Method Room Air Intake Visit Reasons: Chronic Nasal Polyp Intake Note: Patient reports he has chronic nasal polyps. Patient previously used a nasal spray to reduce inflammation and it has not worked in the past. Bung Sewer Required: No Accompanied by: Self / Same As Patient Allergies penicillin V Allergy (Intermediate, Verified 07/19/23 08:14) rash Medication List - Last Reconciled 07/19/23 by Neel Kothari CNP acetaminophen (Tylenol Extra Strength) 500 mg PO Q6H PRN bupropion HCl SR (Wellbutrin SR) 150 mg PO QAM 30 days hydroxyzine HCl 25 mg PO BID PRN 30 days hyoscyamine sulfate 0.125 mg PO QID PRN ibuprofen 600 mg PO Q8H PRN miscellaneous medical supply (Blood Pressure Cuff) blood pressure checks daily and as needed large cuff please omeprazole 40 mg PO DAILY ondansetron 4 mg PO Q8H 3 days polyethylene glycol 3350 (Miralax) 17 grams PO BID vedolizumab (Entyvio) 300 mg IV .EVERY OTHER MONTH Tobacco use date assessed: 04/16/23 Dental Screening Dental Screen Date: 06/28/23 HPI HPI Comments History of Present Illness Details 28-year-old male presents with complaint s of chronic nasal polyps. He notes that evaluated by ENT several years ago and was prescribed nasal spray which was not effective. He notes that the polyps makes it hard to breath, smell, and sleep. He does not currently take medications or uses nasal spray for her symptoms. He denies headache or sinus pain. 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 Mother Hypertension Maternal Grandfather Diabetes Stroke Other Anemia Social History Household Members: Friend(s) Housing: Apartment Do you presently have visiting nurse or other home services: No Alcohol intake: never Patient Tobacco Use Status: Former Tobacco user e-Cigarette/Vaping Use: Never Used Second Hand Smoke Exposure: No service: No Current occupational status: employed Current occupation: [employer] Cognitive needs: No Hearing needs: No Vision needs: No Questionnaire Thrive Questionnaire Date Thrive assessed: 04/16/23 CHARLEEN-7 AMB Questionnaire CHARLEEN-7 Date CHARLEEN - 7 assessed: 06/28/23 Source: Developed by Drs. Sloan Almaraz, Molly Nelson, Chris Vazquez and colleagues, with an educational kulwinder from [employer]. Review of Systems Const Details: Const Denies chills, Denies fatigue, Denies fever(s), Denies headache(s) and Denies weakness ENT Reports as per HPI Card Denies chest pain, Denies lightheadedness, Denies dyspnea and Denies other (Palpitations) Resp Denies cough, Denies dyspnea, Denies wheezing and Denies other ( shortness of breath) GI Denies abdominal pain, Denies melena, Denies hematochezia, Denies change in bowel habits, Denies dyspepsia and Denies nausea Denies hematuria and Denies dysuria Musc Denies abnormal gait, Denies myalgias, Denies arthralgias, Denies numbness and Denies tingling Skin/Breast Denies rash, Denies unusual bruising and Denies wounds Neuro Denies abnormal gait, Denies dizziness, Denies headache(s), Denies memory loss, Denies numbness, Denies Sensory deficit (Neuro), Denies tingling and Denies weakness Psych Denies anxiety, Denies depression, Denies memory loss Endo Denies cold intolerance, Denies fatigue, Denies heat intolerance, Denies polydipsia and Denies polyuria Aller/Immun Denies wheezing Physical exam (Primary Care) Tobacco/Smoking Status: Tobacco use Status Tobacco use date assessed 04/16/23 07/19/23 08:02 Patient Tobacco Use Status Former Tobacco user 07/19/23 08:02 e-Cigarette/Vaping Use Never Used 07/19/23 08:02 Thrive Assessment: Date of Thrive Assessment Date Thrive assessed 04/16/23 07/19/23 08:02 Const Other: General: no acute distress and well developed Nutritional Appearance: well nourished Orientation/consciousness: patient oriented x3 HENMT Head is normocephalic Bilateral ear canal and TM are normal Nasal turbinates and oropharynx are pink and moist. Large polyps noted to both nares Sinuses are nontender with palpation No auricular or cervical lymphadenopathy Eyes General: appearance normal, both eyes and all related structures Pupils: Equal, round and reactive pupils present EOM: EOMs intact bilaterally Resp Effort & Inspection: normal respiratory effort Auscultation: clear to auscultation bilaterally Cardio Rate: regular rate Rhythm: regular rhythm Heart sounds: S1 normal heart sound present, S2 normal heart sound present, no gallops, no murmurs and no rubs GI Palpation (GI): No Abdominal aortic bruit present, Soft to palpation, nontender, No hepatosplenomegaly present and No Rebound tenderness present Auscultation: normal bowel sounds General: Yes no CVA tenderness Back/Spine/Pelvis Back: no CVA tenderness Cervical Spine: cervical ROM normal and No Cervical spine tenderness Thoracic/Lumbar Spine: thoraco-lumbar ROM normal, No pain with thoraco-lumbar ROM, No thoracic spinal tenderness and No lumbar spinal tenderness Extrem General: Yes normal to inspection, No edema and No calf tenderness Skin General: warm and dry. Normal skin color. Normal skin turgor Neuro General: patient oriented x3, gait normal and no focal neuro deficit Cranial nerves: Yes Equal, round and reactive pupils present Cognition (Neuro): normal cognition Gait exam (Neuro): Normal gait present Sensory Exam: No Sensory deficit (Neuro) Psych Appearance: grossly normal Affect: normal affect Attitude: cooperative Thought process: Normal thought process present Assessment and Plan Assessment & Plan (1) Nasal polyps: Code(s): J33.9 - Nasal polyp, unspecified Plan: Chronic nasal polyps with breathing difficulty, sleep disturbances, and loss of smell\ Large polyps noted to both nares Maxillary sinuses nontender to palpation Flonase ordered. Advised to use as prescribed Referred to ENT Follow-up with worsening or new symptoms Verbalized understanding and agreed with treatment plan Orders: Referrals Ear/Nose/Throat Referral J33.9 - Nasal polyp, unspecified Coding Level of Care Code Est Pt Level 3 (90335) Diagnoses Nasal polyps J33.9
[2023-07-19 08:07] VITALS: BP 128/80; PULSE 66; RESP 12; O2SAT 99; BMI 28.9
== END 2023-07-19 08:29 | disposition home or self-care (01) ==
PROVIDERS: PCP Nurse Practitioner Family; Visit Provider Nurse Practitioner Family
DX: J33.9 Nasal polyp, unspecified (principal)
CPT/HCPCS: 99213

== ENCOUNTER 2023-07-23 10:51 | Outpatient (AMB) | payer OTHER, SELFPAY ==
[2023-07-23 10:55] VITALS: BP 128/84; PULSE 73; RESP 13; TEMP 36.6; O2SAT 98; BMI 29.4
--- NOTE | 2023-07-23 10:55 | A.OFFPC_ITS ---
Vital Signs 07/23/23 10:55 Height 6 ft 3 in Weight 235 lb 6 oz BMI 29.4 BP 128/84 Blood Pressure Location Rt brachial Position Sitting Respiration 13 Pulse 73 Pulse Source Pulse Oximeter Temp 97.8 F Temp Source Temporal Artery Scan Pulse Oximetry (%) 98 Oxygen Delivery Method Room Air Intake Visit Reasons: Anxiety, depression Machine Operators Required: No Accompanied by: Self / Same As Patient Allergies penicillin V Allergy (Intermediate, Verified 07/23/23 11:15) rash Medication List - Last Reconciled 07/23/23 by Nele Kothari CNP acetaminophen (Tylenol Extra Strength) 500 mg PO Q6H PRN bupropion HCl SR (Wellbutrin SR) 150 mg PO QAM 30 days fluticasone propionate 50 mcg/actuation (Flonase Allergy Relief) 1 spray intranasal Q12H hydroxyzine HCl 25 mg PO BID PRN 30 days hyoscyamine sulfate 0.125 mg PO QID PRN ibuprofen 600 mg PO Q8H PRN miscellaneous medical supply (Blood Pressure Cuff) blood pressure checks daily and as needed large cuff please omeprazole 40 mg PO DAILY ondansetron 4 mg PO Q8H 3 days polyethylene glycol 3350 (Miralax) 17 grams PO BID vedolizumab (Entyvio) 300 mg IV .EVERY OTHER MONTH Tobacco use date assessed: 04/16/23 Dental Screening Dental Screen Date: 07/23/23 Did you have a dental visit in the last 12 months?: No Did you have a dental problem in the last 6 months where you did not have access to dental care?: No Was dental information given to patient?: Yes HPI HPI Comments History of Present Illness Details 28-year-old male presents for anxiety an d depression follow-up. He was started on Wellbutrin 150 mg daily and hydroxyzine 25 mg twice daily as needed about 3 weeks ago. He admits to taking her medications as prescribed without adverse reactions. He reports moderately controlled anxiety and depression symptoms on current treatment regimen. 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 He states that he sees a therapist every 2 weeks. He has not followed up with his psychiatrist since March 2023. He denies acute symptoms at this time. [facility] Medical History ADHD (attention deficit hyperactivity disorder) 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 Mother Hypertension Maternal Grandfather Diabetes Stroke Other Anemia Social History Household Members: Friend(s) Housing: Apartment Do you presently have visiting nurse or other home services: No Alcohol intake: never Patient Tobacco Use Status: Former Tobacco user e-Cigarette/Vaping Use: Never Used Second Hand Smoke Exposure: No service: No Current occupational status: employed Current occupation: [employer] Cognitive needs: No Hearing needs: No Vision needs: No Questionnaire PHQ-9 Over the last 2 weeks, how often have you been bothered by any of the following problems? 1. Little interest or pleasure in doing things: more than half the days 2. Feeling down, depressed, or hopeless: several days 3. Trouble falling or staying asleep, or sleeping too much: more than half the days 4. Feeling tired or having little energy: more than half the days 5. Poor appetite or overeating: several days 6. Feeling bad about yourself - or that you are a failure or have let yourself or your family down: more than half the days 7. Trouble concentrating on things, such as reading the newspaper or watching television: nearly every day 8. Moving or speaking so slowly that other people could have noticed. Or the opposite - being so fidgety or restless that you have been moving around a lot more than usual: not at all 9. Thoughts that you would be better off or of hurting yourself in some way: not at all Total score: 13 Depression Screening Interpretation: Positive Depression Screening Follow-up: Existing condition and In treatment Depression Screening Done: Yes 50163 - PHQ-9 Billing: Yes Source: Developed by Drs. Sloan Almaraz, MollyChris Cordova and colleagues, with an educational kulwinder from [employer]. Thrive Questionnaire Date Thrive assessed: 04/16/23 CHARLEEN-7 AMB Questionnaire CHARLEEN-7 Date CHARLEEN - 7 assessed: 07/23/23 Feeling nervous, anxious, or on edge: 2 = More than half the days Not being able to stop or control worryin = More than half the days Worrying too much about different things: 2 = More than half the days Trouble relaxin = More than half the days Being so restless that it is hard to sit still: 2 = More than half the days Becoming easily annoyed or irritable: 1 = Several days Feeling afraid as if something awful might happen: 2 = More than half the days Total CHARLEEN-7 score (0-4 normal; 5-9 mild; 10-14 moderate; 15-21 severe): 13 Source: Developed by Drs. Sloan Almaraz, Chris David and colleagues, with an educational kulwinder from [employer]. CHARLEEN-7 Assessment Billing CHARLEEN-7 Assessment Tool: CHARLEEN-7 Assessment 32393 Review of Systems Const Details: Const Denies chills, Denies fatigue, Denies fever(s), Denies headache(s) and Denies weakness ENT Denies dizziness and Denies headache(s) Card Denies chest pain, Denies lightheadedness, Denies dyspnea and Denies other (Palpitations) Resp Denies cough, Denies dyspnea, Denies wheezing and Denies other ( shortness of breath) GI Denies abdominal pain, Denies melena, Denies hematochezia, Denies change in bowel habits, Denies dyspepsia and Denies nausea Denies hematuria and Denies dysuria Musc Denies abnormal gait, Denies myalgias, Denies arthralgias, Denies numbness and Denies tingling Skin/Breast Denies rash, Denies unusual bruising and Denies wounds Neuro Denies abnormal gait, Denies dizziness, Denies headache(s), Denies memory loss, Denies numbness, Denies Sensory deficit (Neuro), Denies tingling and Denies weakness Psych Denies anxiety, Denies depression, Denies memory loss Endo Denies cold intolerance, Denies fatigue, Denies heat intolerance, Denies polydipsia and Denies polyuria Aller/Immun Denies wheezing Physical exam (Primary Care) Vital Signs: Last Vital Signs Temp 97.8 F 07/23/23 10:55 Pulse 73 07/23/23 10:55 Resp 13 07/23/23 10:55 BP 128/84 07/23/23 10:55 Pulse Ox 98 07/23/23 10:55 Oxygen Delivery Method Room Air 07/23/23 10:55 BMI result Body Mass Index 29.4 Tobacco/Smoking Status: Tobacco use Status Tobacco use date assessed 04/16/23 07/23/23 11:05 Patient Tobacco Use Status Former Tobacco user 07/23/23 11:05 e-Cigarette/Vaping Use Never Used 07/23/23 11:05 PHQ-9: PHQ-9 Score PHQ-9: Total score 13 07/23/23 11:05 Depression Screening Interpretation: Positive Depression Screening Follow-up: Existing condition and In treatment Thrive Assessment: Date of Thrive Assessment Date Thrive assessed 04/16/23 07/23/23 11:05 Const Other: General: no acute distress and well developed Nutritional Appearance: well nourished Orientation/consciousness: patient oriented x3 HENMT Head: Yes normocephalic and Yes atraumatic Eyes General: appearance normal, both eyes and all related structures Pupils: Equal, round and reactive pupils present EOM: EOMs intact bilaterally Resp Effort & Inspection: normal respiratory effort Auscultation: clear to auscultation bilaterally Cardio Rate: regular rate Rhythm: regular rhythm Heart sounds: S1 normal heart sound present, S2 normal heart sound present, no gallops, no murmurs and no rubs GI Palpation (GI): No Abdominal aortic bruit present, Soft to palpation, nontender, No hepatosplenomegaly present and No Rebound tenderness present Auscultation: normal bowel sounds General: Yes no CVA tenderness Back/Spine/Pelvis Back: no CVA tenderness Cervical Spine: cervical ROM normal and No Cervical spine tenderness Thoracic/Lumbar Spine: thoraco-lumbar ROM normal, No pain with thoraco-lumbar ROM, No thoracic spinal tenderness and No lumbar spinal tenderness Extrem General: Yes normal to inspection, No edema and No calf tenderness Skin General: warm and dry. Normal skin color. Normal skin turgor Neuro General: patient oriented x3, gait normal and no focal neuro deficit Cranial nerves: Yes Equal, round and reactive pupils present Cognition (Neuro): normal cognition Gait exam (Neuro): Normal gait present Sensory Exam: No Sensory deficit (Neuro) Psych Appearance: grossly normal Affect: normal affect Attitude: cooperative Thought process: Normal thought process present Assessment and Plan Assessment & Plan (1) Anxiety: Code(s): F41.9 - Anxiety disorder, unspecified Plan: Moderately severe anxiety and depression symptoms on current treatment regimen. His anxiety and depression has improved now that his job duty is less demanding Continue current treatment regimen Routine exercise encouraged Continue follow-up with therapist as planned Encouraged to schedule an appointment with his psychiatrist for follow-up visit Return in 1 month or sooner with worsening or new symptoms Verbalized understanding and agreed with treatment plan (2) Depression: Code(s): F32.9 - Major depressive disorder, single episode, unspecified Plan: As above Coding Level of Care Code Est Pt Level 4 (23587) Diagnoses Anxiety F41.9 Depression F32.9 Additional Codes CHARLEEN-7 Assessment Billing - CHARLEEN-7 Assessment Tool: CHARLEEN-7 Assessment [id number] ([id number])
== END 2023-07-23 11:25 | disposition home or self-care (01) ==
PROVIDERS: PCP Nurse Practitioner Family; Visit Provider Nurse Practitioner Family
DX: F41.9 Anxiety disorder, unspecified (principal); F32.9 Major depressive disorder, single episode, unspecified
CPT/HCPCS: 99214

== ENCOUNTER 2023-08-13 12:06 | Outpatient (AMB) | payer OTHER, SELFPAY ==
--- NOTE | 2023-08-13 12:09 | A.OFFVIS_ITS ---
Intake Visit Reasons: 6 mth follow up PT N/S last appt Intake Note: Patient follow up for abdominal pain patient cc:abdominal pain and denies any GI issues. 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 It was at least 5/10 in severity with no relieving or exacerbating factors. He had no nausea or vomiting, had been passing normal colored stool without blood or melena. Not been using nsaids. No fever or chills, appetite had been good. he is not on any medication for crohns, had been on humira in past but stopped due to intolerance and was lost to follow up with GI thereafter, controlling his disease with diet. Labs significant for WBC count of 13.9, ALT of 49, CRP mildly raised CT with few mildly prominent fecalized small bowel loops in right lower quadrant with adjacent mesenteric stranding and small amount of free fluid suspicious for sequelae of small-bowel obstruction He was commenced on antibiotics and fluids I saw him again and commenced on entyvio he went to ED 11/2021--Ct scan with normal GI tract, no acute inflammation Stool PCR was pos for E coli He then missed the entyvio dose October 2021, and prior dose was 08/2021 so he was restarted on entyvio with re induction dosing MRe: 01/31-- normal EGD/colo: 05/04--internal hemorrhoids and erosive esophagitis --neg inflammation he did go to the Ed due to sharp upper abd pains worse with food since last few days, no diarrhe,a no vomiting or nausea, Ct was done with some degen changes in spine and moderate constipation, to my read also duodenal, gastric thickening labs were nml INTERIM: He has been having ongoing abdo pain inspite of entyvio switch to q 6 weeks, now is there every day pain is mostly above the umbilicus can be worse with tea or energy drinks, caffeine, hard for him to stay away from these he tried omeprazole for 2 weeks and felt it did not help he has normal stool, no blood, no diarrhea passing stool or gas does not help pain EXAM: GENERAL: The patient is well developed and nontoxic. 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 Mother Hypertension Maternal Grandfather Diabetes Stroke Other Anemia Social History Household Members: Friend(s) Housing: Apartment Do you presently have visiting nurse or other home services: No Alcohol intake: never Patient Tobacco Use Status: Former Tobacco user e-Cigarette/Vaping Use: Never Used Second Hand Smoke Exposure: No service: No Current occupational status: employed Current occupation: [employer] Cognitive needs: No Hearing needs: No Vision needs: No Telehealth Telehealth Telehealth Platform: [facility] Location of provider rendering services: practice address Location of patient: address on file Patient Identification confirmed using: Name, : Yes Telehealth method: video Patient verbally consented to treatment: Yes Patient verbally consented to billing insurance company: Yes Patient informed of any privacy concerns related to visit: Yes Minutes spent on Phone/Video with Pt.: 11 Assessment & Plan Assessment & Plan (1) Crohn's disease: Code(s): K50.90 - Crohn's disease, unspecified, without complications Category: Medical Plan: 1/ Crohns disease, increase entyvio to q 6 weeks 2/ abdominal pain, seems not to be related to crohns, could be gastritis or PUD, functional dyspepsia due to diet, food intolerances, allergies,--labs and imaging pretty reassuring in recent past PLAN: 1/ cont with entyvio 2/ trial of carafate--if ongoing ?TCA trial 3/ EGD for further assessment Medications: New sucralfate (Carafate) swish in mouth and swallow; use after food/drink 10 mL PO QID 1,000 mL 2RF Coding Level of Care Code Tele Est Pt Level 3 (77226) Diagnoses Crohn's disease K50.90
== END 2023-08-13 12:59 | disposition home or self-care (01) ==
LOC: HO.HGI 12:06
PROVIDERS: PCP Nurse Practitioner Family; Visit Provider Internal Medicine Gastroenterology
DX: K50.90 Crohn's disease, unspecified, without complications (principal)
CPT/HCPCS: 99213

== ENCOUNTER → 2023-08-13 12:06 | Outpatient (BNVA) | payer OTHER, SELFPAY | PROVIDERS: PCP Nurse Practitioner Family; Visit Provider Internal Medicine Gastroenterology ==

== ENCOUNTER 2023-08-19 08:51 | Emergency (ER) | payer OTHER, SELFPAY ==
[2023-08-19 08:52] VITALS: BP 140/80; PULSE 67; RESP 18; TEMP -13.3; TEMP 8; O2SAT 98; BMI 28.7
[2023-08-19 09:41] LABS: Influenza A PCR NEGATIVE (Negative); Influenza B PCR NEGATIVE (Negative); Resp Syncy Virus RNA Qual PCR NEGATIVE (Negative); SARS COV2 PCR INHOUSE NEGATIVE (Negative)
--- NOTE | 2023-08-19 09:59 | ED_ITS ---
HPI - General Adult General Chief complaint: General Medical Stated complaint: Weakness, fatigue Time Seen by Provider: 08/19/23 09:38 Source: patient Mode of arrival: ambulatory Limitations: no limitations History of Present Illness HPI narrative: 20-year-old male with history of Crohn's on Entyvio, ADHD, anxiety, depression who presents to the ER for evaluation of generalized weakness and fatigue that started this morning. He states he woke up with a generalized frontal headache. No fevers or chills. No chest pain, shortness for breath, nausea, vomiting, abdominal pain. Last bowel movement was this morning and was normal. Last got his Entyvio infusion last week. No history of similar reactions in the past. No known sick contacts. MD complaint: Generalized weakness and fatigue, headache Onset (ago): hour(s) Location: head Severity: moderate Quality: aching Pain Consistency: constant Relieving factors: none Exacerbating factors: none Associated symptoms: weakness Treatments prior to arrival: none Related Data Home Medications ?Medication ?Instructions ?Recorded ?Confirmed vedolizumab 300 mg intravenous 300 mg IV .EVERY OTHER MONTH 06/28/23 07/23/23 solution (Entyvio) Previous Rx's ?Medication ?Instructions ?Recorded miscellaneous medical supply #1 ea 06/04/21 (Blood Pressure Cuff) acetaminophen 500 mg tablet 500 mg PO Q6H PRN fever or pain 02/17/23 (Tylenol Extra Strength) #30 tabs ibuprofen 600 mg tablet 600 mg PO Q8H PRN pain #30 tabs 02/17/23 ondansetron 4 mg disintegrating 4 mg PO Q8H 3 days #9 tabs 06/23/23 tablet bupropion HCl 150 mg tablet,12 hr 150 mg PO QAM 30 days #30 tabs 06/28/23 sustained-release (Wellbutrin SR) hydroxyzine HCl 25 mg tablet 25 mg PO BID PRN anxiety 30 days 06/28/23 #90 tabs hyoscyamine sulfate 0.125 mg tablet 0.125 mg PO QID PRN dyspepsia #10 07/08/23 tabs omeprazole 40 mg capsule,delayed 40 mg PO DAILY #30 caps 07/09/23 release polyethylene glycol 3350 17 17 g PO BID #238 grams 07/09/23 gram/dose oral powder (Miralax) fluticasone propionate 50 1 spray intranasal Q12H #16 grams 07/19/23 mcg/actuation nasal spray,suspension (Flonase Allergy Relief) sucralfate 100 mg/mL oral 10 ml PO QID #1,000 mL 08/13/23 suspension (Carafate) Allergies Allergy/AdvReac Type Severity Reaction Status Date / Time penicillin V Allergy Intermediate rash Verified 08/19/23 08:54 Review of Systems Review of Systems: Yes all other systems are reviewed and are negative [facility] Past Medical History Medical History (Updated 08/19/23 @ 10:08 by KIMBERLEE Ron) Crohn's disease ADHD (attention deficit hyperactivity disorder) 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 Mother Hypertension Maternal Grandfather Diabetes Stroke Other Anemia Social History Social History Household Members: Friend(s) Housing: Apartment Do you presently have visiting nurse or other home services: No Alcohol intake: never Patient Tobacco Use Status: Former Tobacco user e-Cigarette/Vaping Use: Never Used Second Hand Smoke Exposure: No Advance Directives: No Do you have a plan to hurt others: No Plan service: No Current occupational status: employed Current occupation: [employer] Cognitive needs: No Hearing needs: No Vision needs: No Physical Exam ED Vital Signs: Vital Signs - 24 hr 08/19/23 08:52 Temperature 8 F L Pulse Rate 67 Respiratory Rate 18 Blood Pressure 140/80 H Pulse Oximetry 98 Oxygen Delivery Method Room Air BMI result Body Mass Index 28.7 Appearance: Alert. Oriented X3. No acute distress. Head: normocephalic, atraumatic. Eyes: Pupils equal, round and reactive to light. ENT: Pharynx normal. No tonsillar swelling or exudate. Neck: Normal inspection. Neck supple. CVS: Normal heart rate and rhythm. Pulses normal. Respiratory: No respiratory distress. Breath sounds normal. Abdomen: Soft and nontender. +BS x4 Skin: Skin warm and dry. Normal skin color. Normal skin turgor. hyperpigmented, macular rash on the lower abdomen Extremities: No lower extremity edema. No joint swelling. Neuro/psych: Oriented X 3. No motor deficit. No sensory deficit. CN II-XII intact. Normal speech and cognition. Medical Decision Making Medical Decision Making [facility] Narrative: 28-year-old male with history of Crohn's on Entyvio, ADHD, depression, anxiety presenting to the ER for evaluation of a few hours of generalized weakness, fatigue and mild frontal headache. Neurologically intact on arrival to the ER. Vital signs are within normal limits. His physical exam is benign. Low clinical suspicion for any bacterial infection at this time. Viral studies were done and were negative for COVID, flu, RSV. His symptoms are vague and have only lasted a couple of hours. No emergent need for any further workup at this time. Patient advised to go home, rest, monitor symptoms and watch for fevers at home. Could be start of a viral illness. He was given strict return precautions and will follow up with his primary care doctor as needed. Stable for discharge home. Differential Diagnosis Differential Diagnoses: The differential diagnosis associated with the presentation includes covid, flu, rsv, other viral syndrome, mononucleosis, pneumonia Lab Data [facility] Lab Attestation statement: I reviewed the patient's lab results. Labs: Lab Results 08/19/23 Range/Units 08:56 Influenza Type A (PCR) NEGATIVE (Negative) Influenza Type B (PCR) NEGATIVE (Negative) RSV RNA Qual (PCR) NEGATIVE (Negative) SARS-CoV-2 RNA (RT-PCR) NEGATIVE (Negative) External Record Review External record reviewed: Outpatient record, Prior outpatient labs and Prior outpatient radiology Tests considered The following testing was considered but not selected: Considered basic lab workup however vital signs and examination were benign and reassuring. Prescription Management I considered prescription management with: Pain Medication Chronic Conditions Patient?s care impacted by: Other ( Crohn's disease on immunosuppressive therapy) Critical Care Time Critical Care Time Critical Care Time: No Discharge Plan Discharge Clinical Impression: Fatigue Qualifiers: Fatigue type: unspecified Qualified Code(s): R53.83 - Other fatigue Headache Qualifiers: Headache type: unspecified Headache chronicity pattern: unspecified pattern Intractability: not intractable Qualified Code(s): R51.9 - Headache, unspecified Patient Disposition: Home, Self-Care Instructions: Fatigue (ED), General Headache (ED) Additional Instructions: Your vital signs today are normal and examination were benign You tested negative for COVID, flu, RSV. Your symptoms may be due to the beginning of a viral illness. Rest and drink plenty of fluids. Take Motrin and Tylenol as needed for headache. Follow-up with your doctor. If you develop new or worsening symptoms call 911 or come back to the ER for further evaluation. Prescriptions: No Action fluticasone propionate [Flonase Allergy Relief] 50 mcg/actuation spray,suspension 1 spray intranasal Q12H Qty: 16 2RF Rx Instructions: administer into each nostril ondansetron 4 mg tablet,disintegrating 4 mg PO Q8H 3 Days Qty: 9 0RF hyoscyamine sulfate 0.125 mg tablet 0.125 mg PO QID PRN (Reason: dyspepsia) Qty: 10 0RF (DME) Blood Pressure Cuff Misc See Rx Instructions .ROUTE .MEDSUPPLY Qty: 1 0RF Rx Instructions: blood pressure checks daily and as needed large cuff please bupropion HCl [Wellbutrin SR] 150 mg tablet sustained-release 12 hr 150 mg PO QAM 30 Days Qty: 30 3RF hydroxyzine HCl 25 mg tablet 25 mg PO BID PRN (Reason: anxiety) 30 Days Qty: 90 1RF Entyvio 300 mg recon soln 300 mg IV .EVERY OTHER MONTH ibuprofen 600 mg tablet 600 mg PO Q8H PRN (Reason: pain) Qty: 30 2RF acetaminophen [Tylenol Extra Strength] 500 mg tablet 500 mg PO Q6H PRN (Reason: fever or pain) Qty: 30 2RF sucralfate [Carafate] 100 mg/mL suspension 10 ml PO QID Qty: 1000 2RF Rx Instructions: swish in mouth and swallow; use after food/drink omeprazole 40 mg capsule,delayed release(DR/EC) 40 mg PO DAILY Qty: 30 1RF polyethylene glycol 3350 [Miralax] 17 gram/dose powder 17 g PO BID Qty: 238 0RF Referrals: Neel Kothari [Primary Care Provider] - Stand Alone Forms: Work/School Release Print Language: Malay
[2023-08-19 10:16] VITALS: BP 134/82; PULSE 60; RESP 14; TEMP 36.8; O2SAT 99
== END 2023-08-19 10:17 | disposition home or self-care (01) ==
PROVIDERS: Emergency Provider Emergency Medicine
DX: R53.83 Other fatigue (principal); R51.9 Headache, unspecified; R53.1 Weakness; Z11.52 Encounter for screening for COVID-19; Z20.822 Contact with and (suspected) exposure to COVID-19
CPT/HCPCS: 0241U; 99282; 99283

== ENCOUNTER 2023-08-19 16:47 | Emergency (ER) | payer OTHER, SELFPAY ==
[2023-08-19 17:08] VITALS: BP 143/78; PULSE 72; RESP 20; TEMP 36.8; O2SAT 98; BMI 28.7
[2023-08-19] MEDS: Diphth,Pertus(ACell),Tet Adult 0.5 ML SYRINGE IM (17:28)
--- NOTE | 2023-08-19 17:30 | ED_ITS ---
HPI - General Adult General Chief complaint: Skin/Abscess/Foreign Body Stated complaint: left wrist burn Time Seen by Provider: 08/19/23 17:23 Source: patient Mode of arrival: ambulatory Limitations: no limitations History of Present Illness HPI narrative: 28 yold male with pmh of Crohns presents to the ED for left wrist burn due to hot oil on left wrist. Patient unknown last tetanus shot. Patient denies any other trauma. Patient has complete range of motion of finger wrist and extremity. Related Data Home Medications ?Medication ?Instructions ?Recorded ?Confirmed vedolizumab 300 mg intravenous 300 mg IV .EVERY OTHER MONTH 06/28/23 07/23/23 solution (Entyvio) Previous Rx's ?Medication ?Instructions ?Recorded miscellaneous medical supply #1 ea 06/04/21 (Blood Pressure Cuff) acetaminophen 500 mg tablet 500 mg PO Q6H PRN fever or pain 02/17/23 (Tylenol Extra Strength) #30 tabs ibuprofen 600 mg tablet 600 mg PO Q8H PRN pain #30 tabs 02/17/23 ondansetron 4 mg disintegrating 4 mg PO Q8H 3 days #9 tabs 06/23/23 tablet bupropion HCl 150 mg tablet,12 hr 150 mg PO QAM 30 days #30 tabs 06/28/23 sustained-release (Wellbutrin SR) hydroxyzine HCl 25 mg tablet 25 mg PO BID PRN anxiety 30 days 06/28/23 #90 tabs hyoscyamine sulfate 0.125 mg tablet 0.125 mg PO QID PRN dyspepsia #10 07/08/23 tabs omeprazole 40 mg capsule,delayed 40 mg PO DAILY #30 caps 07/09/23 release polyethylene glycol 3350 17 17 g PO BID #238 grams 07/09/23 gram/dose oral powder (Miralax) fluticasone propionate 50 1 spray intranasal Q12H #16 grams 07/19/23 mcg/actuation nasal spray,suspension (Flonase Allergy Relief) sucralfate 100 mg/mL oral 10 ml PO QID #1,000 mL 08/13/23 suspension (Carafate) bacitracin 500 unit/gram topical 1 appl topical TID 7 days #30 grams 08/19/23 ointment lisdexamfetamine 10 mg capsule 10 mg PO QAM 30 days #30 caps 08/20/23 (Vyvanse) Allergies Allergy/AdvReac Type Severity Reaction Status Date / Time penicillin V Allergy Intermediate rash Verified 08/20/23 11:31 Review of Systems 2 Review of Systems: Left wrist burn Yes all other systems are reviewed and are negative [facility] Past Medical History Medical History (Updated 08/20/23 @ 00:01 by Otilio Souza) Crohn's disease ADHD (attention deficit hyperactivity disorder) 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 Mother Hypertension Maternal Grandfather Diabetes Stroke Other Anemia Social History Social History Household Members: Friend(s) Housing: Apartment Do you presently have visiting nurse or other home services: No Alcohol intake: never Patient Tobacco Use Status: Former Tobacco user e-Cigarette/Vaping Use: Never Used Second Hand Smoke Exposure: No service: No Current occupational status: employed Current occupation: [employer] Cognitive needs: No Hearing needs: No Vision needs: No Physical Exam ED Vital Signs: Vital Signs - 24 hr 08/19/23 17:08 Temperature 98.2 F Pulse Rate 72 Respiratory Rate 20 Blood Pressure 143/78 H Pulse Oximetry 98 Oxygen Delivery Method Room Air BMI result Body Mass Index 28.7 Const General: cooperative, healthy appearing, comfortable, no acute distress, well developed and alert Orientation/consciousness: oriented to person, oriented to place, oriented to time and patient oriented x3 HENMT Head: Yes normal to inspection, Yes No palpable skull fracture present, Yes normocephalic, Yes atraumatic and No abrasion Eyes General: appearance normal, both eyes and all related structures Neck Neck: Yes normal visual inspection, Yes full ROM, Yes no lymphadenopathy, Yes no meningeal signs, Yes trachea midline, Yes supple, No anterior neck swelling and No tender Chest Chest palpation & inspection: normal inspection of the chest and normal palpation of entire chest wall Resp Effort & Inspection: normal respiratory effort and able to speak in complete sentences Auscultation: clear to auscultation bilaterally Cardio Jugular venous distension: no JVD Heart sounds: S1 normal heart sound present and S2 normal heart sound present GI Inspection: Yes normal to inspection and No abdominal wall ecchymosis Palpation (GI): Soft to palpation, not firm, nontender, no guarding and not rigid General: No CVA tenderness and Yes no CVA tenderness Back/Spine/Pelvis Back: no CVA tenderness, No CVA tenderness and No back tenderness Skin Other: left wrist burn General skin exam: no rashes or lesions noted, elasticity normal and turgor normal Neuro General: oriented to person, oriented to place, oriented to time, patient oriented x3, gait normal, tone normal, moves all extremities, Normal light touch and pain sensation, no meningeal signs, no focal motor deficits, CN's II-XI intact bilaterally and normal sensation to monofilament Extrem General: Yes normal to inspection and Yes full ROM Hand/finger images: 2 1. Positive for burn without blisters. Redness. Burn is not circular/circumfirential. Patient has complete range of motion of wrist hand and fingers. Rest of extremity normal. Motor/neuro/vascular exam intact. Negative for third-degree burn. Psych Appearance: grossly normal, well kempt and not disheveled Medications Administered Discontinued Medications Generic Name Dose Route Start Last Admin Trade Name Freq PRN Reason Stop Dose Admin Diphtheria/Tetanus/Acell Pertussis 0.5 ml 08/19/23 17:24 08/19/23 17:28 Diphth,Pertus(Acell),Tet Adult 0.5 Ml Syringe IM 08/19/23 17:25 0.5 ml .ONCE ONE Administration Medical Decision Making Medical Decision Making [facility] Narrative: 28-year-old male with first-degree burn on dorsal aspect of wrist. Burn is not circular. Negative for necrosis. Patient given Tdap will be discharged with bacitracin. Patient explained worrisome signs and informed to return to the ED if has them. Not suspecting third degree burn, necrosis, compartment syndrome, gangrene, or fracture. Patient given tdap Differential Diagnosis Differential Diagnoses: The differential diagnosis associated with the presentation includes (Burn, second degree burn) Admission/Observation Consideration of admission/observation: Escalation of care including admission/observation considered Independent Historian Clinical information obtained from an independent historian. History obtained from or confirmed by: Other (Patient) External Record Review External record reviewed: Other (Prior visit) Prescription Management I considered prescription management with: Other (bacitracin) Discharge Plan Discharge Clinical Impression: Burn Patient Disposition: Home, Self-Care Instructions: Superficial Burn (ED) Additional Instructions: Return to the ED for severe pain, bluish black discoloration, gangrene, redness, inability to move wrist, finger swelling, fever, chills, burn spreading around extremity, or any other concerning symptoms. Follow-up with primary care provider Prescriptions: New bacitracin 500 unit/gram ointment 1 appl topical TID 7 Days Qty: 30 0RF No Action fluticasone propionate [Flonase Allergy Relief] 50 mcg/actuation spray,suspension 1 spray intranasal Q12H Qty: 16 2RF Rx Instructions: administer into each nostril ondansetron 4 mg tablet,disintegrating 4 mg PO Q8H 3 Days Qty: 9 0RF hyoscyamine sulfate 0.125 mg tablet 0.125 mg PO QID PRN (Reason: dyspepsia) Qty: 10 0RF (DME) Blood Pressure Cuff Misc See Rx Instructions .ROUTE .MEDSUPPLY Qty: 1 0RF Rx Instructions: blood pressure checks daily and as needed large cuff please bupropion HCl [Wellbutrin SR] 150 mg tablet sustained-release 12 hr 150 mg PO QAM 30 Days Qty: 30 3RF hydroxyzine HCl 25 mg tablet 25 mg PO BID PRN (Reason: anxiety) 30 Days Qty: 90 1RF Entyvio 300 mg recon soln 300 mg IV .EVERY OTHER MONTH ibuprofen 600 mg tablet 600 mg PO Q8H PRN (Reason: pain) Qty: 30 2RF acetaminophen [Tylenol Extra Strength] 500 mg tablet 500 mg PO Q6H PRN (Reason: fever or pain) Qty: 30 2RF lisdexamfetamine [Vyvanse] 10 mg capsule 10 mg PO QAM 30 Days Qty: 30 0RF sucralfate [Carafate] 100 mg/mL suspension 10 ml PO QID Qty: 1000 2RF Rx Instructions: swish in mouth and swallow; use after food/drink omeprazole 40 mg capsule,delayed release(DR/EC) 40 mg PO DAILY Qty: 30 1RF polyethylene glycol 3350 [Miralax] 17 gram/dose powder 17 g PO BID Qty: 238 0RF Referrals: [facility] [place] [facility] [Provider Group] (Thermal burn. ) Stand Alone Forms: Work/School Release Interventions: ED Discharge Assessment Last Done: 08/19/23 17:46 Discharge Date/Time: 08/19/23 17:48 Print Language: [place] Leonean
--- NOTE | 2023-08-19 17:32 | PC.NURSE ---
tdap given left deltoid, pt tolerated well.
[2023-08-19 17:46] VITALS: BP 143/78; PULSE 72; RESP 20; TEMP 36.8; O2SAT 98
== END 2023-08-19 17:48 | disposition home or self-care (01) ==
PROVIDERS: Emergency Provider Emergency Medicine; PCP Nurse Practitioner Family
DX: S60.812A Abrasion of left wrist, initial encounter (principal); T23.172A Burn of first degree of left wrist, initial encounter; X10.2XXA Contact with fats and cooking oils, initial encounter; Y93.G3 Activity, cooking and baking; Y92.9 Unspecified place or not applicable; Y99.8 Other external cause status; Z79.899 Other long term (current) drug therapy
CPT/HCPCS: 16025; 90471; 90715; 99282; 99284

== ENCOUNTER 2023-08-20 11:36 | Outpatient (AMB) | payer OTHER, SELFPAY ==
--- NOTE | 2023-08-20 08:43 | A.OFFPC_ITS ---
Intake Visit Reasons: 1 mos anxiety, depression Stock Parts Inspector Required: No Accompanied by: Self / Same As Patient Allergies penicillin V Allergy (Intermediate, Verified 08/20/23 11:31) rash Tobacco use date assessed: 04/16/23 Dental Screening Dental Screen Date: 07/23/23 HPI HPI Comments History of Present Illness Details 28-year-old male [facility] and depression follow-up. He was started on Wellbutrin 150 mg daily and hydroxyzine 25 mg twice daily as needed about 3 weeks ago. He admits to taking her medications as prescribed without adverse reactions. He reports controlled anxiety and depression symptoms on current treatment regimen. He states that his symptoms improved after he switched his job duties from more demanding to less demanding. He has also been excising at the gym twice weekly and intends to increase to 4 times weekly He notes that he his forgetful and has trouble concentrating. He attributes these symptoms to ADHD. He was on Vyvanse 10 mg daily which he stopped taking about 5 months ago because I wanted to see if my anxiety and depression symptoms would be better without it. He is willing to start Vyvanse again He states that he sees a therapist every 2 weeks. He has not followed up with h is psychiatrist since March 2023. He denies acute symptoms at this time. 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 Mother Hypertension Maternal Grandfather Diabetes Stroke Other Anemia Social History Household Members: Friend(s) Housing: Apartment Do you presently have visiting nurse or other home services: No Alcohol intake: never Patient Tobacco Use Status: Former Tobacco user e-Cigarette/Vaping Use: Never Used Second Hand Smoke Exposure: No service: No Current occupational status: employed Current occupation: [employer] Cognitive needs: No Hearing needs: No Vision needs: No Questionnaire PHQ-9 Over the last 2 weeks, how often have you been bothered by any of the following problems? 1. Little interest or pleasure in doing things: more than half the days 2. Feeling down, depressed, or hopeless: several days 3. Trouble falling or staying asleep, or sleeping too much: more than half the days 4. Feeling tired or having little energy: more than half the days 5. Poor appetite or overeating: several days 6. Feeling bad about yourself - or that you are a failure or have let yourself or your family down: several days 7. Trouble concentrating on things, such as reading the newspaper or watching television: nearly every day 8. Moving or speaking so slowly that other people could have noticed. Or the opposite - being so fidgety or restless that you have been moving around a lot more than usual: several days 9. Thoughts that you would be better off or of hurting yourself in some way: not at all Total score: 13 Depression Screening Interpretation: Positive Depression Screening Follow-up: Existing condition and In treatment Depression Screening Done: Yes 45823 - PHQ-9 Billing: Yes Source: Developed by Drs. Sloan Almaraz, Molly Nelson, Chris Vazquez and colleagues, with an educational kulwinder from [employer]. Thrive Questionnaire Date Thrive assessed: 04/16/23 CHARLEEN-7 AMB Questionnaire CHARLEEN-7 Date CHARLEEN - 7 assessed: 08/20/23 Feeling nervous, anxious, or on edge: 1 = Several days Not being able to stop or control worryin = Several days Worrying too much about different things: 2 = More than half the days Trouble relaxin = More than half the days Being so restless that it is hard to sit still: 2 = More than half the days Becoming easily annoyed or irritable: 2 = More than half the days Feeling afraid as if something awful might happen: 2 = More than half the days Total CHARLEEN-7 score (0-4 normal; 5-9 mild; 10-14 moderate; 15-21 severe): 12 Source: Developed by Drs. Sloan Almaraz, Molly Nelson, Chris Vazquez and colleagues, with an educational kulwinder from [employer]. CHARLEEN-7 Assessment Billing CHARLEEN-7 Assessment Tool: CHARLEEN-7 Assessment 25834 Physical exam (Primary Care) Tobacco/Smoking Status: Tobacco use Status Tobacco use date assessed 04/16/23 08/20/23 08:44 Patient Tobacco Use Status Former Tobacco user 08/20/23 08:44 e-Cigarette/Vaping Use Never Used 08/20/23 08:44 PHQ-9: PHQ-9 Score PHQ-9: Total score 13 08/20/23 12:33 Depression Screening Interpretation: Positive Depression Screening Follow-up: Existing condition and In treatment Thrive Assessment: Date of Thrive Assessment Date Thrive assessed 04/16/23 08/20/23 08:44 Telehealth Telehealth Telehealth Platform: Telephone Location of provider rendering services: practice address Location of patient: other Patient Identification confirmed using: Name, : No Telehealth method: voice only Patient verbally consented to treatment: Yes Patient verbally consented to billing insurance company: Yes Patient informed of any privacy concerns related to visit: Yes Assessment and Plan Assessment & Plan (1) Anxiety: Code(s): F41.9 - Anxiety disorder, unspecified Plan: Controlled anxiety and depression symptoms on current treatment regimen PHQ-9 and CHARLEEN-7 scores revealed moderate depression and anxiety Continue to take bupropion and hydroxyzine as prescribed Routine exercise encouraged Continue follow-up with therapist as planned Encouraged to call and make an appointment with his psychiatrist Follow-up in 1 month or return sooner with worsening or new symptoms Verbalized understanding and agreed with treatment plan (2) Depression: Code(s): F32.9 - Major depressive disorder, single episode, unspecified Plan: As above (3) ADHD (attention deficit hyperactivity disorder): Code(s): F90.9 - Attention-deficit hyperactivity disorder, unspecified type Plan: He his forgetful and has trouble concentrating He abruptly stopped taking Vyvanse 10 mg daily about 5 months ago but willing to restart the medication Vyvanse 10 mg daily ordered. Advised to take as prescribed. Instructed on the risks, benefits, and potential adverse reactions of the medications Follow-up in 1 month or return sooner with worsening or new symptoms Verbalized understanding and agreed with treatment plan Medications: Changed From lisdexamfetamine 10 mg PO QAM 0RF To lisdexamfetamine (Vyvanse) 10 mg PO QAM 30 caps 0RF 30 days Coding Level of Care Code Tele Est Pt Level 3 (41854) Diagnoses Anxiety F41.9 Depression F32.9 ADHD (attention deficit hyperactivity disorder) F90.9 Additional Codes CHARLEEN-7 Assessment Billing - CHARLEEN-7 Assessment Tool: CHARLEEN-7 Assessment 69780 ([id number]) Time Spent (min) 25
== END 2023-08-20 13:52 | disposition home or self-care (01) ==
LOC: HO.HMGFM 11:36
PROVIDERS: PCP Nurse Practitioner Family; Visit Provider Nurse Practitioner Family
DX: F41.9 Anxiety disorder, unspecified (principal); F32.9 Major depressive disorder, single episode, unspecified; F90.9 Attention-deficit hyperactivity disorder, unspecified type
CPT/HCPCS: 99213

== ENCOUNTER → 2023-08-24 20:30 | Outpatient (REF) | payer OTHER, SELFPAY | LOC: HO.SL 20:30 | PROVIDERS: PCP Nurse Practitioner Family; Visit Provider Nurse Practitioner Family | DX: G47.9 Sleep disorder, unspecified (principal); G47.10 Hypersomnia, unspecified | CPT/HCPCS: 95810 ==

== ENCOUNTER → 2023-08-24 21:28 | Outpatient (BNV) | payer OTHER, SELFPAY | PROVIDERS: PCP Nurse Practitioner Family; Visit Provider Psychiatry & Neurology Neurology | DX: G47.10 Hypersomnia, unspecified (principal) | CPT/HCPCS: 95810 ==

== ENCOUNTER 2023-09-05 10:04 | Emergency (ER) | payer OTHER, SELFPAY ==
--- NOTE | ~2023-09-05 | CT_ITS ---
EXAMINATION: CT abdomen pelvis w IV con CLINICAL INFORMATION: Reason for Exam mid abd pain, hx Crohn's COMPARISON: Prior CT June 2023 TECHNIQUE: Multidetector volumetric imaging was performed from the superior aspect of the liver through the pubic symphysis 85 mL Omnipaque 350 injected Sagittal and coronal reformatted images were obtained on the technologist's workstation. This CT examination was performed using dose optimization techniques as appropriate, variously including the following: *Automated exposure control *Adjustment of mA and/or kV according to patient size (this includes techniques or standardized protocols for targeted exams where dose is matched to indication/reason for exam; i.e. extremities or head) *Use of iterative reconstruction technique DLP: 881 mGy-cm FINDINGS: LOWER THORAX: Included lung bases are clear. HEPATOBILIARY: No focal hepatic lesions. No biliary ductal dilatation. GALLBLADDER: Gallbladder unremarkable. SPLEEN: Spleen is normal in size. PANCREAS: No focal mass or ductal dilatation. STOMACH AND GASTROINTESTINAL TRACT: Stomach is grossly unremarkable. There is no bowel distention or thickening. No CT evidence of appendicitis. ADRENALS: No adrenal nodules. KIDNEYS/URETERS: No hydronephrosis, stones or solid mass lesions. URINARY BLADDER: Partially decompressed. PELVIC VISCERA: Unremarkable PERITONEUM: No free air or fluid. LYMPH NODES: No lymphadenopathy. VASCULAR:Abdominal aorta normal in size, no aneurysm found. BONES, ABDOMINAL WALL AND SOFT TISSUES: Age-appropriate changes of the spine and skeletal system, no destructive osteolytic or osteosclerotic bone lesion found CT/CT abdomen pelvis w IV con IMPRESSION: No CT evidence of bowel obstruction. No free air or fluid. CT scan has limited roll and sensitivity assessing for uncomplicated Crohn's disease, if clinically suspected would recommend correlation with follow-up upper GI small bowel follow-through or contrast-enhanced MRI enterogram.
[2023-09-05 10:34] VITALS: BP 129/87; PULSE 64; RESP 18; TEMP 37.1; O2SAT 99; BMI 30.2
[2023-09-05 10:56] LABS: MANUAL DIFF FLAG NO
[2023-09-05 10:57] LABS: Basophils Percent Auto 0.4 % (0-2); Eosinophils Absolute Auto 0.1 X10*3/uL (0.0-0.4); Eosinophils Percent Auto 2.1 % (0-4); Hematocrit 47.2 % (42.0-52.0); Hemoglobin 15.9 g/dl (14.0-18.0); Imm Gran Abs Auto 0.01 X10*3/uL (0.00-0.03); Imm Gran Pct Auto 0.2 % (0.0-0.4); Lymphocytes Absolute Auto 1.5 X10*3/uL (1.2-4.9); Lymphocytes Percent Auto 28.4 % (20-40); Mean Corpuscular HGB Conc 33.7 g/dl (31.0-36.0); Mean Corpuscular Hemoglobin 30.1 pg (27.0-33.0); Mean Corpuscular Volume 89.4 fL (80.0-98.0); Mean Platelet Volume 9.7 fL (9.4-12.4); Monocytes Absolute Auto 0.4 X10*3/uL (0.1-1.2); Monocytes Percent Auto 8.6 % (2-11); Neutrophils Absolute Auto 3.1 x10*3/uL (2.0-8.3); Neutrophils Percent Auto 60.3 % (45-73); Platelet Count 200 X10*3/uL (160-400); Red Blood Count 5.28 X10*6/uL (4.60-5.80); Red Cell Distribution Width 13.1 % (11.0-16.0); White Blood Count 5.1 X10*3/uL (4.8-10.8)
[2023-09-05 11:11] LABS: Alanine Aminotransferase 63 U/L (0-40); Albumin Level 4.9 g/dL (3.5-5.0); Alkaline Phosphatase 62 U/L (39-117); Anion Gap 13 (12-20); Aspartate Amino Transferase 124 U/L (5-37); Bilirubin Total 0.7 mg/dL (0.0-1.0); Blood Urea Nitrogen 15 mg/dL (9-16); Calcium 9.9 mg/dL (8.4-10.2); Carbon Dioxide 28 mmol/L (22-29); Chloride 106 mmol/L (96-108); Creatinine Clr Calc Pharmacy 179.2; Estimated Glomerular Filt Rate > 60; Glucose Random 93 mg/dL (60-115); Lipase 17 U/L (8-78); Potassium 4.9 mmol/L (3.3-5.1); Sodium 142 mmol/L (135-145); Total Protein 7.7 g/dL (6.5-8.0)
[2023-09-05 12:12] VITALS: BP 118/76; PULSE 62; RESP 16; TEMP 36.8; O2SAT 100
--- NOTE | 2023-09-05 12:23 | PC.NURSE ---
a&ox4. vss and up to date. pt presents to ED w/ nonradiating lower abd pain x 0700 this am. pt states sx worsen w/ movement. denies n/v/d/fever/chills/urinary sx. hx of crohns disease. abd tender upon palpation. UA obtained/sent to lab. no sob/wob noted. respirations even and unlabored. pt waiting to be seen by ED provider. plan of care ongoing. call juárez placed within reach.
[2023-09-05 12:28] LABS: Appearance Urine Clear; Color Urine Yellow; Glucose Urine UA Negative (Negative); Leukocyte Esterase Urine Negative (Negative); Nitrite Urine Negative (Negative); PH 5.5 (5.0-9.0); Specific Gravity - Urine 1.025 (1.005-1.025); Urine Blood Negative (Negative); Urine Ketones Negative (Negative); Urine Protein Negative (Neg-Trace)
--- NOTE | 2023-09-05 12:51 | PC.NURSE ---
20gIV placed in the left AC. pt waiting to go to CT at this time.
--- NOTE | 2023-09-05 12:55 | ED_ITS ---
HPI - Abdominal Pain General Chief Complaint: Abdominal Pain Stated Complaint: Abd pain Time Seen by Provider: 09/05/23 12:09 Source: patient Mode of arrival: ambulatory History of Present Illness ED Provider: Dr Ordoñez HPI narrative: 28-year-old male with history of Crohn's, currently on Entyvio and being followed by Dr. Khan, presents today with mid abdominal discomfort not associated with nausea/vomiting/fever/chills/diarrhea (last bowel movement was this morning and nonbloody). He otherwise denies any urinary symptoms. Related Data Home Medications ?Medication ?Instructions ?Recorded ?Confirmed vedolizumab 300 mg intravenous 300 mg IV .EVERY OTHER MONTH 06/28/23 07/23/23 solution (Entyvio) Previous Rx's ?Medication ?Instructions ?Recorded miscellaneous medical supply #1 ea 06/04/21 (Blood Pressure Cuff) acetaminophen 500 mg tablet 500 mg PO Q6H PRN fever or pain 02/17/23 (Tylenol Extra Strength) #30 tabs ibuprofen 600 mg tablet 600 mg PO Q8H PRN pain #30 tabs 02/17/23 ondansetron 4 mg disintegrating 4 mg PO Q8H 3 days #9 tabs 06/23/23 tablet bupropion HCl 150 mg tablet,12 hr 150 mg PO QAM 30 days #30 tabs 06/28/23 sustained-release (Wellbutrin SR) hydroxyzine HCl 25 mg tablet 25 mg PO BID PRN anxiety 30 days 06/28/23 #90 tabs hyoscyamine sulfate 0.125 mg tablet 0.125 mg PO QID PRN dyspepsia #10 07/08/23 tabs omeprazole 40 mg capsule,delayed 40 mg PO DAILY #30 caps 07/09/23 release polyethylene glycol 3350 17 17 g PO BID #238 grams 07/09/23 gram/dose oral powder (Miralax) fluticasone propionate 50 1 spray intranasal Q12H #16 grams 07/19/23 mcg/actuation nasal spray,suspension (Flonase Allergy Relief) sucralfate 100 mg/mL oral 10 ml PO QID #1,000 mL 08/13/23 suspension (Carafate) bacitracin 500 unit/gram topical 1 appl topical TID 7 days #30 grams 08/19/23 ointment lisdexamfetamine 10 mg capsule 10 mg PO QAM 30 days #30 caps 08/20/23 (Vyvanse) Allergies Allergy/AdvReac Type Severity Reaction Status Date / Time penicillin V Allergy Intermediate rash Verified 09/05/23 10:36 Review of Systems Review of Systems Pertinent positives and negatives as stated in [facility] Past Medical History Source: nursing notes reviewed Medical History Crohn's disease ADHD (attention deficit hyperactivity disorder) 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 Mother Hypertension Maternal Grandfather Diabetes Stroke Other Anemia Social History Social History Household Members: Friend(s) Housing: Apartment Do you presently have visiting nurse or other home services: No Alcohol intake: never Patient Tobacco Use Status: Former Tobacco user Smoked in Last 30 Days: No e-Cigarette/Vaping Use: Never Used Second Hand Smoke Exposure: No Use of substances other than those prescribed or required for medical reasons: No Advance Directives: No Advance Directives Information Provided: No Do you have a plan to hurt others: No Plan service: No Current occupational status: employed Current occupation: [employer] Cognitive needs: No Hearing needs: No Vision needs: No Physical Exam ED Vital Signs: Vital Signs - 24 hr 09/05/23 10:34 09/05/23 12:12 Temperature 98.8 F 98.3 F Pulse Rate 64 62 Respiratory Rate 18 16 Blood Pressure 129/87 118/76 Pulse Oximetry 99 100 Oxygen Delivery Method Room Air Room Air BMI result Body Mass Index 30.2 VITAL SIGNS: Reviewed. GENERAL: Well developed, well nourished, in no acute distress. HEAD: Normocephalic/atraumatic EYES: PERRLA, EOMI LUNGS: Normal breath sounds. No adventitious sounds or accessory muscle use. SpO2<100> CARDIOVASCULAR: Regular rate and rhythm without noted murmurs ABDOMEN: Soft, periumbilical discomfort on palpation without rebound, no right lower quadrant or left lower quadrant pain, non-distended with bowel sounds. MUSCULOSKELETAL: No tenderness, deformities, or effusions noted on gross inspection. EXTREMITIES: No cyanosis, clubbing or edema. SKIN: Inspection of the skin reveals no rashes NEUROLOGIC: Alert and oriented x 4. Strength and sensation to light touch were grossly intact x 4. Medical Decision Making Medical Decision Making [facility] Narrative: 28-year-old male with history and clinical presentation, DDX: Low clinical suspicion for acute appendicitis/UTI/renal colic, possibility Crohn's flare although no corresponding symptoms reported by patient other than abdominal pain. I reviewed all investigations and hematologic indices are negative for leukocytosis/anemia/thrombocytopenia. Chemistry indices are negative for SALAZAR/electrolyte or liver enzyme derangements other than chronically elevated transaminases. Urinalysis is negative for UTI or hematuria. CT scan to eval for Crohn's flair signed out to Dr Cooper. Differential Diagnosis Differential Diagnoses: The differential diagnosis associated with the presentation includes Please see the discussion above Admission/Observation Consideration of admission/observation: Escalation of care including admission/observation considered Please see the discussion above Lab Data [facility] Lab Attestation statement: I reviewed the patient's lab results. Please see the discussion above 09/05/23 10:51 09/05/23 10:51 Labs: Lab Results 09/05/23 09/05/23 Range/Units 10:51 12:23 WBC 5.1 (4.8-10.8) X10*3/uL RBC 5.28 (4.60-5.80) X10*6/uL Hgb 15.9 (14.0-18.0) g/dl Hct 47.2 (42.0-52.0) % MCV 89.4 (80.0-98.0) fL MCH 30.1 (27.0-33.0) pg MCHC 33.7 (31.0-36.0) g/dl RDW 13.1 (11.0-16.0) % Plt Count 200 (160-400) X10*3/uL MPV 9.7 (9.4-12.4) fL Immature Gran % (Auto) 0.2 (0.0-0.4) % Neut % (Auto) 60.3 (45-73) % Lymph % (Auto) 28.4 (20-40) % [place] % (Auto) 8.6 (2-11) % Eos % (Auto) 2.1 (0-4) % Baso % (Auto) 0.4 (0-2) % Lymph # (Auto) 1.5 (1.2-4.9) X10*3/uL [place] # (Auto) 0.4 (0.1-1.2) X10*3/uL Eos # (Auto) 0.1 (0.0-0.4) X10*3/uL Baso # (Auto) 0.0 (0.0-0.2) X10*3/uL Abs Immat Gran (auto) 0.01 (0.00-0.03) X10*3/uL Absolute Neuts (auto) 3.1 (2.0-8.3) x10*3/uL Absolute Nucleated RBC 0.000 (0.0-0.012) X10*3/uL Nucleated RBC % (auto) 0.0 (0.0-0.2) /100WBC Sodium 142 (135-145) mmol/L Potassium 4.9 (3.3-5.1) mmol/L Chloride 106 (96-108) mmol/L Carbon Dioxide 28 (22-29) mmol/L Anion Gap 13 (12-20) BUN 15 (9-16) mg/dL Creatinine 0.82 (0.5-1.4) mg/dL Estim Creat Clear Calc 179.2 Estimated GFR > 60 Random Glucose 93 (60-115) mg/dL Calcium 9.9 (8.4-10.2) mg/dL Total Bilirubin 0.7 (0.0-1.0) mg/dL AST 124 H (5-37) U/L ALT 63 H (0-40) U/L Alkaline Phosphatase 62 (39-117) U/L Total Protein 7.7 (6.5-8.0) g/dL Albumin 4.9 (3.5-5.0) g/dL Lipase 17 (8-78) U/L Urine Color Yellow Urine Appearance Clear Urine pH 5.5 (5.0-9.0) Ur Specific [place] 1.025 (1.005-1.025) Urine Protein Negative (Neg-Trace) mg/dL Urine Glucose (UA) Negative (Negative) mg/dL Urine Ketones Negative (Negative) mg/dL Urine Blood Negative (Negative) Urine Nitrite Negative (Negative) Ur Leukocyte Esterase Negative (Negative) External Record Review External record reviewed: Outpatient record, Prior outpatient labs and Prior outpatient radiology Chronic Conditions Patient?s care impacted by: Other Crohn's Medications Administered Discontinued Medications Generic Name Dose Route Start Last Admin Trade Name Freq PRN Reason Stop Dose Admin Diatrizoate Meglum/Diatrizoate Sod 30 ml 09/05/23 15:42 09/05/23 15:42 Diatrizoate Meglumine, Sodium 30 Ml Solution PO 09/05/23 15:43 30 ml ONCE ONE Administration Iohexol 100 ml 09/05/23 15:41 09/05/23 15:41 Iohexol 350 Mg/Ml 100 Ml Infus..Btl IV 09/05/23 15:42 85 ml ONCE ONE Administration Critical Care Time Critical Care Time Critical Care Time: Yes Total Critical Care Time: 45 Attestation: I personally attest to this time spent taking care of the patient. Discharge Plan Discharge Clinical Impression: Abdominal pain Patient Disposition: Still a Patient Prescriptions: No Action fluticasone propionate [Flonase Allergy Relief] 50 mcg/actuation spray,suspension 1 spray intranasal Q12H Qty: 16 2RF Rx Instructions: administer into each nostril ondansetron 4 mg tablet,disintegrating 4 mg PO Q8H 3 Days Qty: 9 0RF hyoscyamine sulfate 0.125 mg tablet 0.125 mg PO QID PRN (Reason: dyspepsia) Qty: 10 0RF bacitracin 500 unit/gram ointment 1 appl topical TID 7 Days Qty: 30 0RF (DME) Blood Pressure Cuff Misc See Rx Instructions .ROUTE .MEDSUPPLY Qty: 1 0RF Rx Instructions: blood pressure checks daily and as needed large cuff please bupropion HCl [Wellbutrin SR] 150 mg tablet sustained-release 12 hr 150 mg PO QAM 30 Days Qty: 30 3RF hydroxyzine HCl 25 mg tablet 25 mg PO BID PRN (Reason: anxiety) 30 Days Qty: 90 1RF Entyvio 300 mg recon soln 300 mg IV .EVERY OTHER MONTH ibuprofen 600 mg tablet 600 mg PO Q8H PRN (Reason: pain) Qty: 30 2RF acetaminophen [Tylenol Extra Strength] 500 mg tablet 500 mg PO Q6H PRN (Reason: fever or pain) Qty: 30 2RF lisdexamfetamine [Vyvanse] 10 mg capsule 10 mg PO QAM 30 Days Qty: 30 0RF sucralfate [Carafate] 100 mg/mL suspension 10 ml PO QID Qty: 1000 2RF Rx Instructions: swish in mouth and swallow; use after food/drink omeprazole 40 mg capsule,delayed release(DR/EC) 40 mg PO DAILY Qty: 30 1RF polyethylene glycol 3350 [Miralax] 17 gram/dose powder 17 g PO BID Qty: 238 0RF Print Language: Indian
[2023-09-05] MEDS: iohexoL 350 MG/ML 100 ML INFUS..BTL IV (15:41)
[2023-09-05] MEDS: Diatrizoate Meglumine, Sodium 30 ML SOLUTION PO (15:42)
[2023-09-05 16:48] VITALS: BP 140/82; PULSE 66; RESP 18; TEMP 36.9; O2SAT 99
--- NOTE | 2023-09-05 16:49 | PC.NURSE ---
vss and up to date at this time. pt waiting for CT results at this time. respirations remain even and unlabored. call juárez placed within reach.
--- NOTE | 2023-09-05 19:46 | PC.NURSE ---
This RN assumed pt care @ 1900. Pt sitting up in bed eating dinner, pt ca&ox3, no signs of distress. Plan of care ongoing.
[2023-09-05 20:09] VITALS: BP 128/78; PULSE 64; RESP 14; TEMP 37; O2SAT 100
--- NOTE | 2023-09-05 20:12 | PC.NURSE ---
This RN assumed pt care @ 1900. Pt ca&ox4, no signs of distress. Pt reporting 5/10 abd pain. Pt standing at bedside on cell phone. Plan of care ongoing.
[2023-09-05 20:14] VITALS: BP 128/78; PULSE 64; RESP 14; TEMP 37; O2SAT 100
== END 2023-09-05 20:14 | disposition home or self-care (01) ==
PROVIDERS: Student in an Organized Health Care Education/Training Program; Emergency Provider Internal Medicine; PCP Nurse Practitioner Family
DX: R10.9 Unspecified abdominal pain (principal); K50.90 Crohn's disease, unspecified, without complications; Z79.899 Other long term (current) drug therapy
CPT/HCPCS: 36415; 74177; 80053; 81003; 83690; 85025; 99284; Q9967

== ENCOUNTER 2023-09-09 11:39 | Day surgery (SDC) | payer OTHER, SELFPAY ==
[2023-09-09 12:25] VITALS: BMI 29.0
[2023-09-09 12:33] VITALS: BP 138/81; PULSE 89; RESP 15; TEMP 36.7; O2SAT 99
[2023-09-09] MEDS: Lactated Ringers 1,000 ML 50 ML IVCONT (13:06)
--- NOTE | 2023-09-09 13:21 | P.CONAN_ITS ---
HPI - Anesthesia Eval Consult details Narrative: 28 yo male patient for EGD [facility] Active Problems Active Problems: All Active Problems (Updated 09/06/23 @ 00:01 by Otilio Souza) Nasal polyps (Acute) Weakness (Acute) Difficulty sleeping (Acute) Anxiety (Acute) Depression (Acute) ADHD (attention deficit hyperactivity disorder) (Acute) Insomnia (Acute) Normal physical examination, routine (Acute) Daytime hypersomnia (Acute) CARLA (obstructive sleep apnea) (Acute)- Osteoarthritis of right knee (Acute) Diarrhea (Acute) Normal physical exam (Acute) COVID-19 virus infection (Acute) HTN (hypertension) (Acute) Low testosterone in male (Acute) Hypertension due to drug (Acute) Elevated BP without diagnosis of hypertension (Acute) Morbidly obese (Acute) Small bowel obstruction (Acute) Crohn's disease (Acute) Abdominal pain (Acute) Right inguinal pain (Acute) Temporomandibular joint (TMJ) pain (Acute) Elevated blood pressure reading (Acute) Spondylosis of lumbosacral spine without myelopathy (Acute) Acquired genu valgum of both knees (Acute) Back pain (Acute) Attention and concentration deficit (Acute) Encounter for well adult exam with abnormal findings (Acute) Right testicular pain (Acute) BPV (benign positional vertigo) (Acute) Right-sided low back pain with sciatica (Acute) Past Medical History Medical History Crohn's disease ADHD (attention deficit hyperactivity disorder) 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 Mother Hypertension Maternal Grandfather Diabetes Stroke Other Anemia Family history of problems with anesthesia: No Surgical History Surgical History Hx of colonoscopy History of esophagogastroduodenoscopy (EGD) History of arthroscopy of both knees History of Problems with Anesthesia: No Social History Social History Household Members: Friend(s) Housing: Apartment Do you presently have visiting nurse or other home services: No Alcohol intake: never Patient Tobacco Use Status: Never used Tobacco e-Cigarette/Vaping Use: Never Used Second Hand Smoke Exposure: No service: No Current occupational status: employed Current occupation: [employer] Cognitive needs: No Hearing needs: No Vision needs: No Meds Allergies Allergy/AdvReac Type Severity Reaction Status Date / Time penicillin V Allergy Intermediate rash Verified 09/09/23 13:04 Active Medications: Current Medications Lactated Ringer's (Lr) 1,000 mls @ 50 mls/hr IVCONT .Q20H GAGE Last Admin: 09/09/23 13:06 Dose: 50 mls/hr Home Medications ?Medication ?Instructions ?Recorded ?Confirmed ?Last Taken ?Type vedolizumab 300 mg intravenous 300 mg IV .EVERY OTHER MONTH 06/28/23 09/09/23 Unknown History solution (Entyvio) Exam Height,Weight and Vital Signs: Height 6 ft 3 in Weight 105.415 kg Last Vital Signs Temp 98.0 F 09/09/23 12:33 Pulse 89 09/09/23 12:33 Resp 15 09/09/23 12:33 BP 138/81 09/09/23 12:33 Pulse Ox 99 09/09/23 12:33 O2 Del Method Room Air 09/09/23 12:33 Assessment and Plan Final Anesthetic Review Family History of Problems with Anesthesia: No History of Problems with Anesthesia: No
--- NOTE | 2023-09-09 13:21 | MHC.SHP ---
Pre-Procedural Eval Section A - 24 Hr Update-Section A only Date of Service: 09/09/23 Section B - Complete if H&P > 30 days Chief Complaint: Unspecified abdominal pain Relevant Family History (Specify if Yes): No Relevant Social History: None Present Medications: see Short Stay Collaborative assessment Medical History: Significant History (Acquired genu valgum of both knees Acute Crohn's disease ADHD (attention deficit hyperactivity disorder) Arthritis Depression Eczema Scoliosis Spondylosis of lumbosacral spine without myelopathy) History of Previous Operations: Relevant previous surgery/procedure and date(s) (History of arthroscopy of both knees History of esophagogastroduodenoscopy (EGD) Hx of colonoscopy) Allergies: Allergies Allergy/AdvReac Type Severity Reaction Status Date / Time penicillin V Allergy Intermediate rash Verified 09/09/23 13:04 Review of Systems Sugical H&P ROS: Negative: Constitution, Cardiovascular, Respiratory, Neurological, Psychiatric, Hem-Onc, Allergic/Immunologic, Gastrointestinal, Genitourinary, Musculoskeletal, Integumentary, Endocrine and Eyes/Ears/Nose/Throat Exam Surgical H&P Exam: Normal: HEENT, Normal: Heart, Normal: Lungs, Normal: Extremities, Normal: Abdomen, Normal: Skin and Normal: Neurological Plan Diagnosis/Plan: Unchanged I have reviewed the history and physical and performed a pertinent physical examination on my patient. No changes have occurred unless specified. Time Spent With Patient Time: Total time managing care of this patient today ____ minutes.
--- NOTE | 2023-09-09 14:20 | W.PM.OPN ---
Operative Note Operative Note Date of Service: 09/09/23 Narrative: Procedure Description: EGD Indication: abdominal pain Anesthesia: MAC FLEXIBLE TRANSORAL UPPER GASTROINTESTINAL ENDOSCOPY UPPER ENDOSCOPY Consent: Indications for the procedure and potential complications of bleeding, perforation, reaction to medications and missed diagnosis were discussed with the patient and informed consent was obtained. Instrument: Olympus GIF H 190 J mid size upper endoscope Monitoring: Vital signs and clinical assessment, continuous EKG monitoring, Pulse oximetry, Carbon Dioxide monitoring and blood pressure monitoring were done throughout the procedure. Procedure: The patient was placed in the left lateral decubitis position and pre-procedure medications were administered and a bite block was placed. The endoscope was inserted into the mouth and advanced under direct vision to the third part of duodenum. A careful inspection was made as the upper endoscope was withdrawn including a retroflexed examination of the proximal stomach; Findings and interventions are described below. Findings: Larynx:normal Esophagus: GE junction at 40 cm, diaphragm hiatus at 40 cm, long erosive streak consistent with LA grade D esophagitis Stomach: patchy erythema . Biopsies were obtained. Grade 2 flap valve on retroflexed examination of the cardia. Duodenum: Normal bulb and descending duodenum, bx taken Intervention: Biopsies as noted above, Impression/Findings: gastritis erosive esophagitis PLAN: confirm compliance with PPI, can change if taking and not working, can also check if used carafate GERD precautions
[2023-09-09 14:30] VITALS: BP 123/78; PULSE 88; RESP 16; TEMP 36.9; O2SAT 100
[2023-09-09 14:45] VITALS: BP 127/80; PULSE 80; RESP 16; O2SAT 99
== END 2023-09-09 15:27 | disposition home or self-care (01) ==
PROVIDERS: PCP Nurse Practitioner Family; Visit Provider Internal Medicine Gastroenterology
PROC: 0DJ08ZZ Inspection of Upper Intestinal Tract, Via Natural or Artificial Opening Endoscopic (ICD-10-PCS; CPT 43235; principal; 2023-09-09 13:30)
DX: K29.70 Gastritis, unspecified, without bleeding (principal); K20.80 Other esophagitis without bleeding; K50.90 Crohn's disease, unspecified, without complications; Z79.899 Other long term (current) drug therapy; Z88.0 Allergy status to penicillin
CPT/HCPCS: 43239; 88305; 88313; 88342; J2704

== ENCOUNTER → 2023-09-09 11:39 | Outpatient (BNV) | payer OTHER, SELFPAY | PROVIDERS: PCP Nurse Practitioner Family; Visit Provider Internal Medicine Gastroenterology | DX: K29.70 Gastritis, unspecified, without bleeding (principal); K20.90 Esophagitis, unspecified without bleeding | CPT/HCPCS: 43239 ==

== ENCOUNTER 2023-10-15 12:48 | Outpatient (AMB) | payer OTHER, SELFPAY ==
--- NOTE | 2023-10-15 12:55 | MHC.PC.OV ---
Vital Signs 10/15/23 13:00 Height 6 ft 3 in Weight 246 lb 8 oz BMI 30.8 BP 118/74 Blood Pressure Location Rt brachial Position Sitting Respiration 16 Pulse 67 Pulse Source Pulse Oximeter Pulse Oximetry (%) 98 Oxygen Delivery Method Room Air Intake Visit Reasons: follow sleep study Intake Note: Follow up sleep study Health And Wellness Sales Consultant Required: No Allergies penicillin V Allergy (Intermediate, Verified 10/15/23 13:09) rash Medication List - Last Reconciled 10/15/23 by Neel Kothari CNP acetaminophen (Tylenol Extra Strength) 500 mg PO Q6H PRN hydroxyzine HCl 25 mg PO BID PRN 30 days ibuprofen 600 mg PO Q8H PRN miscellaneous medical supply (Blood Pressure Cuff) blood pressure checks daily and as needed large cuff please omeprazole 40 mg PO DAILY sucralfate (Carafate) 10 mL PO BID vedolizumab (Entyvio) 300 mg IV .EVERY OTHER MONTH Tobacco use date assessed: 04/16/23 Dental Screening Dental Screen Date: 07/23/23 HPI HPI Comments History of Present Illness Details 28-year-old male presents for anxiety, depression, and ADHD follow-up. He admits to taking hydroxyzine as prescribed without adverse reactions. He states that he never started Bupropion which was prescribed in June. Vyvanse was recently prescribed; however, he notes that it was not covered by is [facility], therefore, he has not been taking the medication. He notes that his symptoms were well controlled on Vyvanse. He notes that still he continues to struggle with sleep. He usually has difficulty falling or staying asleep. He takes Hydroxyzine at night with some improvement of his sleep. He reports moderate anxiety and depressive symptoms. He lacks motivation and has no pleasure or interest in doing things. He does not socialized. He also thinks too much, which makes it hard to sleep. He seldom speak too much or move too quickly. He had normal sleep study done by [facility] in 08/2023 He notes that he is forgetful to take him medications. He he willing to have VNA services for assessment and medication management He states that he was followed by [facility] for both psychotropic medication management and counseling. 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 Mother Hypertension Maternal Grandfather Diabetes Stroke Other Anemia Social History Household Members: Friend(s) Housing: Apartment Do you presently have visiting nurse or other home services: No Alcohol intake: never Patient Tobacco Use Status: Never used Tobacco e-Cigarette/Vaping Use: Never Used Second Hand Smoke Exposure: No service: No Current occupational status: employed Current occupation: [employer] Cognitive needs: No Hearing needs: No Vision needs: No Questionnaire PHQ-9 Over the last 2 weeks, how often have you been bothered by any of the following problems? 1. Little interest or pleasure in doing things: more than half the days 2. Feeling down, depressed, or hopeless: more than half the days 3. Trouble falling or staying asleep, or sleeping too much: nearly every day 4. Feeling tired or having little energy: nearly every day 5. Poor appetite or overeating: more than half the days 6. Feeling bad about yourself - or that you are a failure or have let yourself or your family down: several days 7. Trouble concentrating on things, such as reading the newspaper or watching television: nearly every day 8. Moving or speaking so slowly that other people could have noticed. Or the opposite - being so fidgety or restless that you have been moving around a lot more than usual: more than half the days 9. Thoughts that you would be better off or of hurting yourself in some way: not at all Total score: 18 Depression Screening Interpretation: Positive Depression Screening Follow-up: Existing condition, In treatment, New Medication prescribed and Community Mental Health Worker F/U Depression Screening Done: Yes 96660 - PHQ-9 Billing: Yes Source: Developed by Drs. lSoan Almaraz, Molly Nelson, Chris Vazquez and colleagues, with an educational kulwinder from [employer]. Thrive Questionnaire Date Thrive assessed: 04/16/23 CHARLEEN-7 AMB Questionnaire CHARLEEN-7 Date CHARLEEN - 7 assessed: 10/15/23 Feeling nervous, anxious, or on edge: 2 = More than half the days Not being able to stop or control worryin = More than half the days Worrying too much about different things: 2 = More than half the days Trouble relaxin = Nearly every day Being so restless that it is hard to sit still: 3 = Nearly every day Becoming easily annoyed or irritable: 3 = Nearly every day Feeling afraid as if something awful might happen: 2 = More than half the days Total CHARLEEN-7 score (0-4 normal; 5-9 mild; 10-14 moderate; 15-21 severe): 17 Source: Developed by Drs. Sloan Almaraz, Molly Nelson, Chrsi Vazquez and colleagues, with an educational kulwinder from [employer]. CHARLEEN-7 Assessment Billing CHARLEEN-7 Assessment Tool: CHARLEEN-7 Assessment 14441 Review of Systems Const Details: Const Denies chills, Denies fatigue, Denies fever(s), Denies headache(s) and Denies weakness ENT Denies dizziness and Denies headache(s) Card Denies chest pain, Denies lightheadedness, Denies dyspnea and Denies other (Palpitations) Resp Denies cough, Denies dyspnea, Denies wheezing and Denies other ( shortness of breath) GI Denies abdominal pain, Denies melena, Denies hematochezia, Denies change in bowel habits, Denies dyspepsia and Denies nausea Denies hematuria and Denies dysuria Musc Denies abnormal gait, Denies myalgias, Denies arthralgias, Denies numbness and Denies tingling Skin/Breast Denies rash, Denies unusual bruising and Denies wounds Neuro Denies abnormal gait, Denies dizziness, Denies headache(s), Denies memory loss, Denies numbness, Denies Sensory deficit (Neuro), Denies tingling and Denies weakness Psych Reports anxiety, Reports depression, Denies memory loss Endo Denies cold intolerance, Denies fatigue, Denies heat intolerance, Denies polydipsia and Denies polyuria Aller/Immun Denies wheezing Physical exam (Primary Care) Vital Signs: Last Vital Signs Pulse 67 10/15/23 13:00 Resp 16 10/15/23 13:00 BP 118/74 10/15/23 13:00 Pulse Ox 98 10/15/23 13:00 Oxygen Delivery Method Room Air 10/15/23 13:00 BMI result Body Mass Index 30.8 Tobacco/Smoking Status: Tobacco use Status Tobacco use date assessed 04/16/23 10/15/23 12:57 Patient Tobacco Use Status Never used Tobacco 10/15/23 12:57 e-Cigarette/Vaping Use Never Used 10/15/23 12:57 Depression Screening Interpretation: Positive Depression Screening Follow-up: Existing condition, In treatment, New Medication prescribed and Community Mental Health Worker F/U Thrive Assessment: Date of Thrive Assessment Date Thrive assessed 04/16/23 10/15/23 12:57 Const Other: General: no acute distress and well developed Nutritional Appearance: well nourished Orientation/consciousness: patient oriented x3 HENMT Head: Yes normocephalic and Yes atraumatic Eyes General: appearance normal, both eyes and all related structures Pupils: Equal, round and reactive pupils present EOM: EOMs intact bilaterally Resp Effort & Inspection: normal respiratory effort Auscultation: clear to auscultation bilaterally Cardio Rate: regular rate Rhythm: regular rhythm Heart sounds: S1 normal heart sound present, S2 normal heart sound present, no gallops, no murmurs and no rubs GI Palpation (GI): No Abdominal aortic bruit present, Soft to palpation, nontender, No hepatosplenomegaly present and No Rebound tenderness present Auscultation: normal bowel sounds General: Yes no CVA tenderness Back/Spine/Pelvis Back: no CVA tenderness Cervical Spine: cervical ROM normal and No Cervical spine tenderness Thoracic/Lumbar Spine: thoraco-lumbar ROM normal, No pain with thoraco-lumbar ROM, No thoracic spinal tenderness and No lumbar spinal tenderness Extrem General: Yes normal to inspection, No edema and No calf tenderness Skin General: warm and dry. Normal skin color. Normal skin turgor Neuro General: patient oriented x3, gait normal and no focal neuro deficit Cranial nerves: Yes Equal, round and reactive pupils present Cognition (Neuro): normal cognition Gait exam (Neuro): Normal gait present Sensory Exam: No Sensory deficit (Neuro) Psych Appearance: grossly normal Affect: normal affect Attitude: cooperative Thought process: Normal thought process present Assessment and Plan Assessment & Plan (1) Anxiety: Code(s): F41.9 - Anxiety disorder, unspecified Plan: Moderate anxiety and depressive symptoms Sleep continues to be an issue. However, hydroxyzine provides some improvement. Recent sleep study was normal PHQ-9 and CHARLEEN-7 scores revealed moderately severe depression and severe anxiety respectively The MA researched his Vyvanse and found that a prior authorization was needed. She will process the request at this time Vyvanse reordered. Advised to take as prescribed. Instructed on the risks, benefits, and potential adverse reactions of the medication Continue to take hydroxyzine as prescribed He met with the [facility] who will connect him to a therapist/psychiatrist Referred for VNA services for assessments and medication management Follow-up in 2 weeks or sooner with worsening or new symptoms Verbalized understanding and agreed with treatment (2) Depression: Code(s): F32.9 - Major depressive disorder, single episode, unspecified Plan: As above (3) ADHD (attention deficit hyperactivity disorder): Code(s): F90.9 - Attention-deficit hyperactivity disorder, unspecified type Plan: As above (4) Sleep disturbance: Code(s): G47.9 - Sleep disorder, unspecified Plan: As above Orders: Referrals [facility]osp[facility] Referral F32.9 - Major depressive disorder, single episode, unspecified, F41.9 - Anxiety disorder, unspecified, F90.9 - Attention-deficit hyperactivity disorder, unspecified type, G47.9 - Sleep disorder, unspecified, K50.90 - Crohn's disease, unspecified, without complications Medications: Refilled sucralfate (Carafate) swish in mouth and swallow; use after food/drink 10 mL PO BID 1,000 mL 0RF lisdexamfetamine (Vyvanse) 10 mg PO QAM 30 days 30 caps 0RF Coding Level of Care Code Est Pt Level 4 (85835) Complex EM visit Add On G2211 Diagnoses Anxiety F41.9 Depression F32.9 ADHD (attention deficit hyperactivity disorder) F90.9 Sleep disturbance G47.9 Additional Codes CHARLEEN-7 Assessment Billing - CHARLEEN-7 Assessment Tool: CHARLEEN-7 Assessment [id number] ([id number])
[2023-10-15 13:00] VITALS: BP 118/74; PULSE 67; RESP 16; O2SAT 98; BMI 30.8
== END 2023-10-15 13:46 | disposition home or self-care (01) ==
PROVIDERS: PCP Nurse Practitioner Family; Visit Provider Nurse Practitioner Family
DX: F41.9 Anxiety disorder, unspecified (principal); F32.9 Major depressive disorder, single episode, unspecified; F90.9 Attention-deficit hyperactivity disorder, unspecified type; G47.9 Sleep disorder, unspecified
CPT/HCPCS: 96127; 99214; G2211

== ENCOUNTER 2023-11-02 16:14 | Outpatient (AMB) | payer OTHER, SELFPAY ==
--- NOTE | 2023-11-02 16:15 | A.OFFPC_ITS ---
Vital Signs 11/02/23 16:20 Height 6 ft 3 in Weight 242 lb 8 oz BMI 30.3 BP 124/74 Blood Pressure Location Rt brachial Position Sitting Respiration 16 Pulse 69 Pulse Source Pulse Oximeter Temp 98.2 F Temp Source Oral Pulse Oximetry (%) 97 Oxygen Delivery Method Room Air Intake Visit Reasons: 2 week follow up Intake Note: patient here for 2 week follow up Coremaker Required: No Allergies penicillin V Allergy (Intermediate, Verified 11/02/23 16:37) rash Medication List - Last Reconciled 11/02/23 by Neel Kothari CNP acetaminophen (Tylenol Extra Strength) 500 mg PO Q6H PRN hydroxyzine HCl 25 mg PO BID PRN 30 days ibuprofen 600 mg PO Q8H PRN lisdexamfetamine (Vyvanse) 10 mg PO QAM 30 days miscellaneous medical supply (Blood Pressure Cuff) blood pressure checks daily and as needed large cuff please omeprazole 40 mg PO DAILY sucralfate (Carafate) 10 mL PO BID Tobacco use date assessed: 11/02/23 Dental Screening Dental Screen Date: 11/02/23 Did you have a dental visit in the last 12 months?: No Did you have a dental problem in the last 6 months where you did not have access to dental care?: No Was dental information given to patient?: Yes HPI HPI Comments History of Present Illness Details 28-year-old male presents for anxiety, d epression, and ADHD follow-up He was started on Vyvanse 10 mg daily at his last visit 2 weeks ago. He admits to taking her medication as prescribed without adverse reactions He reports improved anxiety, depressive, and ADHD symtptoms. Sleep is still an issue but has improved - he struggles to fall and stay asleep; he sleeps an average of 6 hours nightly. No weight loss or loss of appetite. He has a busy work schedule and has not made time for exercise He was also referred to VNA services for medication management/administration at his last visit. He notes that he was contacted while on vacation and contact them upon his return. 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 Mother Hypertension Maternal Grandfather Diabetes Stroke Other Anemia Social History Household Members: Friend(s) Housing: Apartment Do you presently have visiting nurse or other home services: No Alcohol intake: never Patient Tobacco Use Status: Never used Tobacco e-Cigarette/Vaping Use: Never Used Second Hand Smoke Exposure: No service: No Current occupational status: employed Current occupation: [employer] Cognitive needs: No Hearing needs: No Vision needs: No Questionnaire PHQ-9 Over the last 2 weeks, how often have you been bothered by any of the following problems? 1. Little interest or pleasure in doing things: several days 2. Feeling down, depressed, or hopeless: several days 3. Trouble falling or staying asleep, or sleeping too much: nearly every day 4. Feeling tired or having little energy: more than half the days 5. Poor appetite or overeating: several days 6. Feeling bad about yourself - or that you are a failure or have let yourself or your family down: several days 7. Trouble concentrating on things, such as reading the newspaper or watching television: more than half the days 8. Moving or speaking so slowly that other people could have noticed. Or the opposite - being so fidgety or restless that you have been moving around a lot more than usual: several days 9. Thoughts that you would be better off or of hurting yourself in some way: not at all Total score: 12 Depression Screening Interpretation: Positive Depression Screening Follow-up: Existing condition and In treatment Depression Screening Done: Yes 10639 - PHQ-9 Billing: Yes Source: Developed by Drs. Sloan Almaraz, Molly Nelson, Chris Vazquez and colleagues, with an educational kulwinder from [employer]. Thrive Questionnaire Date Thrive assessed: 04/16/23 CHARLEEN-7 AMB Questionnaire CHARLEEN-7 Date CHARLEEN - 7 assessed: 11/02/23 Feeling nervous, anxious, or on edge: 1 = Several days Not being able to stop or control worryin = Several days Worrying too much about different things: 1 = Several days Trouble relaxin = More than half the days Being so restless that it is hard to sit still: 2 = More than half the days Becoming easily annoyed or irritable: 1 = Several days Feeling afraid as if something awful might happen: 1 = Several days Total CHARLEEN-7 score (0-4 normal; 5-9 mild; 10-14 moderate; 15-21 severe): 9 Source: Developed by Drs. Sloan Almaraz, Molly Nelson, Chris Vazquez and colleagues, with an educational kulwinder from [employer]. CHARLEEN-7 Assessment Billing CHARLEEN-7 Assessment Tool: CHARLEEN-7 Assessment 07376 Review of Systems Const Details: Const Denies chills, Denies fatigue, Denies fever(s), Denies headache(s) and Denies weakness ENT Denies dizziness and Denies headache(s) Card Denies chest pain, Denies lightheadedness, Denies dyspnea and Denies other (Palpitations) Resp Denies cough, Denies dyspnea, Denies wheezing and Denies other ( shortness of breath) GI Denies abdominal pain, Denies melena, Denies hematochezia, Denies change in bowel habits, Denies dyspepsia and Denies nausea Denies hematuria and Denies dysuria Musc Denies abnormal gait, Denies myalgias, Denies arthralgias, Denies numbness and Denies tingling Skin/Breast Denies rash, Denies unusual bruising and Denies wounds Neuro Denies abnormal gait, Denies dizziness, Denies headache(s), Denies memory loss, Denies numbness, Denies Sensory deficit (Neuro), Denies tingling and Denies weakness Psych Reports anxiety, Reports depression, Denies memory loss Endo Denies cold intolerance, Denies fatigue, Denies heat intolerance, Denies polydipsia and Denies polyuria Aller/Immun Denies wheezing Physical exam (Primary Care) Vital Signs: Last Vital Signs Temp 98.2 F 11/02/23 16:20 Pulse 69 11/02/23 16:20 Resp 16 11/02/23 16:20 BP 124/74 11/02/23 16:20 Pulse Ox 97 11/02/23 16:20 Oxygen Delivery Method Room Air 11/02/23 16:20 BMI result Body Mass Index 30.3 Tobacco/Smoking Status: Tobacco use Status Tobacco use date assessed 11/02/23 11/02/23 16:20 Patient Tobacco Use Status Never used Tobacco 11/02/23 16:20 e-Cigarette/Vaping Use Never Used 11/02/23 16:20 PHQ-9: PHQ-9 Score PHQ-9: Total score 12 11/02/23 16:25 Depression Screening Interpretation: Positive Depression Screening Follow-up: Existing condition and In treatment Thrive Assessment: Date of Thrive Assessment Date Thrive assessed 04/16/23 11/02/23 16:20 Const Other: General: no acute distress and well developed Nutritional Appearance: well nourished Orientation/consciousness: patient oriented x3 HENMT Head: Yes normocephalic and Yes atraumatic Eyes General: appearance normal, both eyes and all related structures Pupils: Equal, round and reactive pupils present EOM: EOMs intact bilaterally Resp Effort & Inspection: normal respiratory effort Auscultation: clear to auscultation bilaterally Cardio Rate: regular rate Rhythm: regular rhythm Heart sounds: S1 normal heart sound present, S2 normal heart sound present, no gallops, no murmurs and no rubs GI Palpation (GI): No Abdominal aortic bruit present, Soft to palpation, nontender, No hepatosplenomegaly present and No Rebound tenderness present Auscultation: normal bowel sounds General: Yes no CVA tenderness Back/Spine/Pelvis Back: no CVA tenderness Cervical Spine: cervical ROM normal and No Cervical spine tenderness Thoracic/Lumbar Spine: thoraco-lumbar ROM normal, No pain with thoraco-lumbar ROM, No thoracic spinal tenderness and No lumbar spinal tenderness Extrem General: Yes normal to inspection, No edema and No calf tenderness Skin General: warm and dry. Normal skin color. Normal skin turgor Lesions: no lesions Rashes: no rashes Trauma: no lacerations or abrasions Wounds: no wounds Nails: normal Neuro General: patient oriented x3, gait normal and no focal neuro deficit Cranial nerves: Yes Equal, round and reactive pupils present Cognition (Neuro): normal cognition Gait exam (Neuro): Normal gait present Sensory Exam: No Sensory deficit (Neuro) Psych Appearance: grossly normal Affect: normal affect Attitude: cooperative Thought process: Normal thought process present Assessment and Plan Assessment & Plan (1) Anxiety: Code(s): F41.9 - Anxiety disorder, unspecified Plan: Improved anxiety and depression symptoms. Sleep is still an issue but has improved; he has trouble falling and staying asleep PHQ-9 and CHARLEEN-7 scores revealed moderate depression and mild anxiety respectively Continue current treatment regimen Routine exercise encouraged Follow-up with VNA services as planned Return in 1 month for anxiety, depression, and ADHD or sooner with worsening or new symptoms Verbalized understanding and agreed with the treatment plan (2) Depression: Code(s): F32.9 - Major depressive disorder, single episode, unspecified Plan: As above (3) ADHD (attention deficit hyperactivity disorder): Code(s): F90.9 - Attention-deficit hyperactivity disorder, unspecified type Plan: As above Coding Level of Care Code Est Pt Level 4 (09974) Complex EM visit Add On G2211 Diagnoses Anxiety F41.9 Depression F32.9 ADHD (attention deficit hyperactivity disorder) F90.9 Additional Codes CHARLEEN-7 Assessment Billing - CHARLEEN-7 Assessment Tool: CHARLEEN-7 Assessment [id number] ([id number])
[2023-11-02 16:20] VITALS: BP 124/74; PULSE 69; RESP 16; TEMP 36.8; O2SAT 97; BMI 30.3
== END 2023-11-02 16:47 | disposition home or self-care (01) ==
PROVIDERS: PCP Nurse Practitioner Family; Visit Provider Nurse Practitioner Family
DX: F41.9 Anxiety disorder, unspecified (principal); F32.9 Major depressive disorder, single episode, unspecified; F90.9 Attention-deficit hyperactivity disorder, unspecified type
CPT/HCPCS: 99214; G2211

== ENCOUNTER 2023-11-09 07:41 | Emergency (ER) | payer OTHER, SELFPAY ==
--- NOTE | ~2023-11-09 | XR_ITS ---
EXAMINATION: XR CHEST CLINICAL INFORMATION: Chest pain COMPARISON: None available. TECHNIQUE: 2 views of the chest were obtained. FINDINGS: Lungs clear. No pleural effusions. Heart and pulmonary vessels normal. XR/XR chest 2V IMPRESSION: No active disease.
--- NOTE | 2023-11-09 07:42 | ECG_ITS ---
Test Reason : cp Blood Pressure : / mmHG Vent. Rate : 065 BPM Atrial Rate : 065 BPM P-R Int : 162 ms QRS Dur : 090 ms QT Int : 384 ms P-R-T Axes : 023 044 034 degrees QTc Int : 399 ms Normal sinus rhythm Normal ECG When compared with ECG of 29-AUG-2021 18:42, No significant change was found Referred By: Generic ED Physician Electronically Signed By:Maximino Reyes
[2023-11-09 07:46] VITALS: BP 139/81; PULSE 65; RESP 16; TEMP 37; O2SAT 99; BMI 31.3
[2023-11-09 08:14] LABS: MANUAL DIFF FLAG NO
[2023-11-09 08:18] LABS: Basophils Percent Auto 0.7 % (0-2); Eosinophils Absolute Auto 0.2 X10*3/uL (0.0-0.4); Eosinophils Percent Auto 3.3 % (0-4); Hematocrit 43.1 % (42.0-52.0); Hemoglobin 14.6 g/dl (14.0-18.0); Imm Gran Abs Auto 0.01 X10*3/uL (0.00-0.03); Imm Gran Pct Auto 0.2 % (0.0-0.4); Lymphocytes Absolute Auto 1.4 X10*3/uL (1.2-4.9); Lymphocytes Percent Auto 31.8 % (20-40); Mean Corpuscular HGB Conc 33.9 g/dl (31.0-36.0); Mean Corpuscular Volume 88.7 fL (80.0-98.0); Mean Platelet Volume 9.8 fL (9.4-12.4); Monocytes Absolute Auto 0.4 X10*3/uL (0.1-1.2); Monocytes Percent Auto 9.3 % (2-11); Neutrophils Absolute Auto 2.5 x10*3/uL (2.0-8.3); Neutrophils Percent Auto 54.7 % (45-73); Platelet Count 201 X10*3/uL (160-400); Red Blood Count 4.86 X10*6/uL (4.60-5.80); Red Cell Distribution Width 12.7 % (11.0-16.0); White Blood Count 4.5 X10*3/uL (4.8-10.8)
[2023-11-09 08:27] LABS: Anion Gap 10 (12-20); Blood Urea Nitrogen 11 mg/dL (9-16); Calcium 9.6 mg/dL (8.4-10.2); Carbon Dioxide 27 mmol/L (22-29); Chloride 107 mmol/L (96-108); Creatinine Clr Calc Pharmacy 184.6; Estimated Glomerular Filt Rate > 60; Glucose Random 108 mg/dL (60-115); Potassium 4.3 mmol/L (3.3-5.1); Sodium 140 mmol/L (135-145)
[2023-11-09 08:45] LABS: Troponin-I High Sensitivity < 2.7 ng/L (<3.5-35.0)
--- NOTE | 2023-11-09 08:50 | PC.NURSE ---
patient from external triage, states he was at work this morning and putting something on a shelf when he had a sudden sensation of mid sternal chest pain radiating to the right shoulder and back. patient denies any shortness of breath or other symptoms, endorsing pain to palpation. placed on satellite project site monitor, EKG completed in triage, blood work complete at this time. patient awaitng MD mcmahon
[2023-11-09 10:23] VITALS: BP 132/83; PULSE 55; RESP 13; TEMP 36.7; O2SAT 100
--- NOTE | 2023-11-09 10:32 | ED_ITS ---
HPI - Chest Pain General Chief Complaint: Chest Pain Stated Complaint: Chest pain Time Seen by Provider: 11/09/23 08:43 Source: patient Limitations: no limitations History of Present Illness ED Provider: Tiffanie Lizarraga PA-C HPI narrative: 28-year old otherwise healthy male presents with chest pain x1 day. Pain over central upper chest. Pain worse with palpation and chest wall and with movement of his neck. Denies recent cough cold symptoms, fever, diaphoresis, nausea. Patient states he was lifting a heavy object from above his head yesterday, then woke with pain this morning. Related Data Previous Rx's ?Medication ?Instructions ?Recorded miscellaneous medical supply #1 ea 06/04/21 (Blood Pressure Cuff) acetaminophen 500 mg tablet 500 mg PO Q6H PRN fever or pain 02/17/23 (Tylenol Extra Strength) #30 tabs ibuprofen 600 mg tablet 600 mg PO Q8H PRN pain #30 tabs 02/17/23 hydroxyzine HCl 25 mg tablet 25 mg PO BID PRN anxiety 30 days 06/28/23 #90 tabs omeprazole 40 mg capsule,delayed 40 mg PO DAILY #30 caps 09/09/23 release lisdexamfetamine 10 mg capsule 10 mg PO QAM 30 days #30 caps 10/15/23 (Vyvanse) sucralfate 100 mg/mL oral 10 ml PO BID #1,000 mL 10/18/23 suspension (Carafate) Allergies Allergy/AdvReac Type Severity Reaction Status Date / Time penicillin V Allergy Intermediate rash Verified 11/09/23 07:51 Review of Systems 2 Review of Systems: Yes all other systems are reviewed and are negative Constitutional: Constitutional: Denies fever(s) Cardiovascular: Cardiovascular: Reports chest pain and Denies dyspnea Respiratory: Respiratory: Denies dyspnea Gastrointestinal: Gastrointestinal: Denies nausea PMFSH Past Medical History Attestation statement: The following information was validated with the patient. 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 Mother Hypertension Maternal Grandfather Diabetes Stroke Other Anemia Social History Social History Household Members: Friend(s) Housing: Apartment Do you presently have visiting nurse or other home services: No Alcohol intake: never Patient Tobacco Use Status: Never used Tobacco e-Cigarette/Vaping Use: Never Used Second Hand Smoke Exposure: No Use of substances other than those prescribed or required for medical reasons: No Advance Directives: No service: No Current occupational status: employed Current occupation: [employer] Cognitive needs: No Hearing needs: No Vision needs: No Physical Exam 2 Vital Signs: Vital Signs: Last Vital Signs Temp 98.1 F 11/09/23 10:23 Pulse 55 11/09/23 10:23 Resp 13 11/09/23 10:23 BP 132/83 11/09/23 10:23 Pulse Ox 100 11/09/23 10:23 O2 Del Method Room Air 11/09/23 10:23 BMI result Body Mass Index 31.3 Const: Other: Alert well in appearance Orientation/consciousness: patient oriented x3 Neck: Other: Full range of motion no midline tenderness Chest: Other: Palpable pain over left upper chest no deformity noted, no overlying erythema or ecchymosis Resp: Other: Nonlabored respiration Cardio: Other: Normal peripheral perfusion Neuro: General: patient oriented x3, no focal motor deficits and CN's II-XI intact bilaterally Psych: Other: Calm cooperative Course Course Course Narrative: 28-year old otherwise healthy male presents with chest pain x1 day. Pain over central upper chest. Pain worse with palpation and chest wall and with movement of his neck. Denies recent cough cold symptoms, fever, diaphoresis, nausea. Patient states he was lifting a heavy object from above his head yesterday, then woke with pain this morning. No chronic issues to address History: Per patient I have considered the following differential diagnoses: ACS, chest wall strain, costochondritis Plan: ACS was considered, however the patient has no risk factors for coronary artery disease, he has a heart score of 0. His discomfort is most consistent with chest wall strain and he has a mechanism. Thought about costochondritis, however he has not had preceding viral syndrome. I have independently reviewed the following tests: Labs: No leukocytosis, not anemic, no electrolyte abnormality, troponin negative EKG: Normal sinus rhythm, rate of 65, no ischemic changes no ectopy QT 399 Chest x-ray: No pleural effusion or pulmonary edema no pneumonia Medical Decision Making Lab Data 11/09/23 08:08 11/09/23 08:08 Labs: Lab Results 11/09/23 Range/Units 08:08 WBC 4.5 L (4.8-10.8) X10*3/uL RBC 4.86 (4.60-5.80) X10*6/uL Hgb 14.6 (14.0-18.0) g/dl Hct 43.1 (42.0-52.0) % MCV 88.7 (80.0-98.0) fL MCH 30.0 (27.0-33.0) pg MCHC 33.9 (31.0-36.0) g/dl RDW 12.7 (11.0-16.0) % Plt Count 201 (160-400) X10*3/uL MPV 9.8 (9.4-12.4) fL Immature Gran % (Auto) 0.2 (0.0-0.4) % Neut % (Auto) 54.7 (45-73) % Lymph % (Auto) 31.8 (20-40) % [place] % (Auto) 9.3 (2-11) % Eos % (Auto) 3.3 (0-4) % Baso % (Auto) 0.7 (0-2) % Lymph # (Auto) 1.4 (1.2-4.9) X10*3/uL [place] # (Auto) 0.4 (0.1-1.2) X10*3/uL Eos # (Auto) 0.2 (0.0-0.4) X10*3/uL Baso # (Auto) 0.0 (0.0-0.2) X10*3/uL Abs Immat Gran (auto) 0.01 (0.00-0.03) X10*3/uL Absolute Neuts (auto) 2.5 (2.0-8.3) x10*3/uL Absolute Nucleated RBC 0.000 (0.0-0.012) X10*3/uL Nucleated RBC % (auto) 0.0 (0.0-0.2) /100WBC Sodium 140 (135-145) mmol/L Potassium 4.3 (3.3-5.1) mmol/L Chloride 107 (96-108) mmol/L Carbon Dioxide 27 (22-29) mmol/L Anion Gap 10 L (12-20) BUN 11 (9-16) mg/dL Creatinine 0.81 (0.5-1.4) mg/dL Estim Creat Clear Calc 184.6 Estimated GFR > 60 Random Glucose 108 (60-115) mg/dL Calcium 9.6 (8.4-10.2) mg/dL Troponin I High Sens < 2.7 (<3.5-35.0) ng/L Discharge Plan Discharge Clinical Impression: Acute chest wall pain Patient Disposition: Home, Self-Care Instructions: Chest Wall Pain (ED) Additional Instructions: All of your screening labs including cardiac enzymes were normal. There were no concerning changes on her EKG in your chest x-ray was clear. Your discomfort is consistent with chest wall strain. See home care instructions. You can take [id number] ibuprofen 600 mg taken every 6 hours with food, alternating with use of [id number] Tylenol 1000 mg taken every 8 hours, as needed for discomfort. Follow up with your primary care provider as needed Prescriptions: No Action omeprazole 40 mg capsule,delayed release(DR/EC) 40 mg PO DAILY Qty: 30 3RF sucralfate [Carafate] 100 mg/mL suspension 10 ml PO BID Qty: 1000 0RF Rx Instructions: swish in mouth and swallow; use after food/drink (DME) Blood Pressure Cuff Misc See Rx Instructions .ROUTE .MEDSUPPLY Qty: 1 0RF Rx Instructions: blood pressure checks daily and as needed large cuff please hydroxyzine HCl 25 mg tablet 25 mg PO BID PRN (Reason: anxiety) 30 Days Qty: 90 1RF lisdexamfetamine [Vyvanse] 10 mg capsule 10 mg PO QAM 30 Days Qty: 30 0RF ibuprofen 600 mg tablet 600 mg PO Q8H PRN (Reason: pain) Qty: 30 2RF acetaminophen [Tylenol Extra Strength] 500 mg tablet 500 mg PO Q6H PRN (Reason: fever or pain) Qty: 30 2RF Print Language: Telugu
[2023-11-09 10:48] VITALS: BP 137/68; PULSE 61; RESP 19; TEMP 37; O2SAT 99
== END 2023-11-09 10:53 | disposition home or self-care (01) ==
PROVIDERS: Emergency Provider Emergency Medicine; PCP Nurse Practitioner Family
DX: R07.89 Other chest pain (principal); Z79.899 Other long term (current) drug therapy
CPT/HCPCS: 36415; 71046; 80048; 84484; 85025; 93005; 99283; 99285

== ENCOUNTER → 2023-11-09 07:42 | Outpatient (BNV) | payer OTHER, SELFPAY | PROVIDERS: Emergency Provider Emergency Medicine; PCP Nurse Practitioner Family; Visit Provider Internal Medicine Cardiovascular Disease | DX: R07.9 Chest pain, unspecified (principal) | CPT/HCPCS: 93010 ==

== ENCOUNTER 2023-12-06 17:19 | Outpatient (AMB) | payer OTHER, SELFPAY ==
--- NOTE | 2023-12-06 17:20 | A.OFFPC_ITS ---
Vital Signs 12/06/23 17:23 Height 6 ft 3 in Weight 255 lb BMI 31.9 BP 126/80 Blood Pressure Location Rt brachial Position Sitting Respiration 16 Pulse 80 Pulse Source Pulse Oximeter Temp 97.2 F Temp Source Oral Pulse Oximetry (%) 96 Oxygen Delivery Method Room Air Intake Visit Reasons: Low energy , tiredness Intake Note: patient here c/o having low energy and feeling tired. 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 Required: No Allergies penicillin V Allergy (Intermediate, Verified 12/06/23 17:29) rash Medication List - Last Reconciled 12/06/23 by Neel Kothari CNP acetaminophen (Tylenol Extra Strength) 500 mg PO Q6H PRN hydroxyzine HCl 25 mg PO BID PRN 30 days ibuprofen 600 mg PO Q8H PRN lisdexamfetamine (Vyvanse) 10 mg PO QAM 30 days miscellaneous medical supply (Blood Pressure Cuff) blood pressure checks daily and as needed large cuff please omeprazole 40 mg PO DAILY sucralfate (Carafate) 10 mL PO BID Tobacco use date assessed: 12/06/23 Dental Screening Dental Screen Date: 11/02/23 HPI HPI Comments History of Present Illness Details 28-year-old male presents with complaint s of constant fatigue and low energy He notes that he has been taking his medications as prescribed without adverse reactions He notes that he has been making healthy dietary choices and sleeping well. He notes that he has been doing physical exercise routinely He notes that his ADHD, anxiety, and depressive symptoms are improving but he continues to experience constant fatigue He notes that he has been taking vitamin-D supplement 5000 units daily He requests lab ordered for testosterone level He notes that he saw ENT today and was told that he has polyps that would be removed [facility] Medical History Crohn's disease ADHD (attention deficit hyperactivity disorder) 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 Mother Hypertension Maternal Grandfather Diabetes Stroke Other Anemia Social History Household Members: Friend(s) Housing: Apartment Do you presently have visiting nurse or other home services: No Alcohol intake: never Patient Tobacco Use Status: Never used Tobacco e-Cigarette/Vaping Use: Never Used Second Hand Smoke Exposure: No service: No Current occupational status: employed Current occupation: [employer] Cognitive needs: No Hearing needs: No Vision needs: No Questionnaire PHQ-9 Over the last 2 weeks, how often have you been bothered by any of the following problems? 1. Little interest or pleasure in doing things: several days 2. Feeling down, depressed, or hopeless: several days 3. Trouble falling or staying asleep, or sleeping too much: more than half the days 4. Feeling tired or having little energy: more than half the days 5. Poor appetite or overeating: several days 6. Feeling bad about yourself - or that you are a failure or have let yourself or your family down: several days 7. Trouble concentrating on things, such as reading the newspaper or watching television: more than half the days 8. Moving or speaking so slowly that other people could have noticed. Or the opposite - being so fidgety or restless that you have been moving around a lot more than usual: several days 9. Thoughts that you would be better off or of hurting yourself in some way: not at all Total score: 11 Depression Screening Interpretation: Positive Depression Screening Follow-up: Existing condition and In treatment Depression Screening Done: Yes 99463 - PHQ-9 Billing: Yes Source: Developed by Drs. Sloan Almaraz, Molly Nelson, Chris Vazquez and colleagues, with an educational kulwinder from [employer]. Thrive Questionnaire Date Thrive assessed: 04/16/23 CHARLEEN-7 AMB Questionnaire CHARLEEN-7 Date CHARLEEN - 7 assessed: 12/06/23 Feeling nervous, anxious, or on edge: 1 = Several days Not being able to stop or control worryin = Several days Worrying too much about different things: 1 = Several days Trouble relaxin = Several days Being so restless that it is hard to sit still: 2 = More than half the days Becoming easily annoyed or irritable: 1 = Several days Feeling afraid as if something awful might happen: 0 = Not at all Total CHARLEEN-7 score (0-4 normal; 5-9 mild; 10-14 moderate; 15-21 severe): 7 Source: Developed by Drs. Sloan Almaraz, Molly Nelson, Chris Vazquez and colleagues, with an educational kulwinder from [employer]. CHARLEEN-7 Assessment Billing CHARLEEN-7 Assessment Tool: CHARLEEN-7 Assessment 98337 Review of Systems Const Details: Const Denies chills, Reports fatigue, Denies fever(s), Denies headache(s) and Denies weakness ENT Denies dizziness and Denies headache(s) Card Denies chest pain, Denies lightheadedness, Denies dyspnea and Denies other (Palpitations) Resp Denies cough, Denies dyspnea, Denies wheezing and Denies other ( shortness of breath) GI Denies abdominal pain, Denies melena, Denies hematochezia, Denies change in b owel habits, Denies dyspepsia and Denies nausea Denies hematuria and Denies dysuria Musc Denies abnormal gait, Denies myalgias, Denies arthralgias, Denies numbness and Denies tingling Skin/Breast Denies rash, Denies unusual bruising and Denies wounds Neuro Denies abnormal gait, Denies dizziness, Denies headache(s), Denies memory loss, Denies numbness, Denies Sensory deficit (Neuro), Denies tingling and Denies weakness Psych Denies anxiety, Denies depression, Denies memory loss Endo Denies cold intolerance, Reports fatigue, Denies heat intolerance, Denies polydipsia and Denies polyuria Aller/Immun Denies wheezing Physical exam (Primary Care) Vital Signs: Last Vital Signs Temp 97.2 F 12/06/23 17:23 Pulse 80 12/06/23 17:23 Resp 16 12/06/23 17:23 BP 126/80 12/06/23 17:23 Pulse Ox 96 12/06/23 17:23 Oxygen Delivery Method Room Air 12/06/23 17:23 BMI result Body Mass Index 31.9 Tobacco/Smoking Status: Tobacco use Status Tobacco use date assessed 12/06/23 12/06/23 17:26 Patient Tobacco Use Status Never used Tobacco 12/06/23 17:26 e-Cigarette/Vaping Use Never Used 12/06/23 17:26 PHQ-9: PHQ-9 Score PHQ-9: Total score 11 12/06/23 17:28 Depression Screening Interpretation: Positive Depression Screening Follow-up: Existing condition and In treatment Thrive Assessment: Date of Thrive Assessment Date Thrive assessed 04/16/23 12/06/23 17:26 Const Other: General: no acute distress and well developed Nutritional Appearance: well nourished Orientation/consciousness: patient oriented x3 HENMT Head: Yes normocephalic and Yes atraumatic Eyes General: appearance normal, both eyes and all related structures Pupils: Equal, round and reactive pupils present EOM: EOMs intact bilaterally Resp Effort & Inspection: normal respiratory effort Auscultation: clear to auscultation bilaterally Cardio Rate: regular rate Rhythm: regular rhythm Heart sounds: S1 normal heart sound present, S2 normal heart sound present, no gallops, no murmurs and no rubs GI Palpation (GI): No Abdominal aortic bruit present, Soft to palpation, nontender, No hepatosplenomegaly present and No Rebound tenderness present Auscultation: normal bowel sounds General: Yes no CVA tenderness Back/Spine/Pelvis Back: no CVA tenderness Cervical Spine: cervical ROM normal and No Cervical spine tenderness Thoracic/Lumbar Spine: thoraco-lumbar ROM normal, No pain with thoraco-lumbar ROM, No thoracic spinal tenderness and No lumbar spinal tenderness Extrem General: Yes normal to inspection, No edema and No calf tenderness Skin General: warm and dry. Normal skin color. Normal skin turgor Neuro General: patient oriented x3, gait normal and no focal neuro deficit Cranial nerves: Yes Equal, round and reactive pupils present Cognition (Neuro): normal cognition Gait exam (Neuro): Normal gait present Sensory Exam: No Sensory deficit (Neuro) Psych Appearance: grossly normal Affect: normal affect Attitude: cooperative Thought process: Normal thought process present Assessment and Plan Assessment & Plan (1) Fatigue: Code(s): R53.83 - Other fatigue Plan: He notes constant fatigue. His anxiety, depression, and ADHD symptoms have been improving on current treatment regimen His fatigue may be attributed to depression PHQ-9 and CHARLEEN-7 scores revealed moderate depression and mild anxiety respectively Will increase Vyvanse to 30 mg daily. Encouraged to take as prescribed May take vitamin-D3 1000 or 2000 units daily Will check vitamin-D, TSH/T4, and testosterone levels. Advised to get blood work done before his next visit Follow-up in 2 weeks or sooner with worsening or new symptoms Verbalized understanding and agreed with treatment plan (2) ADHD (attention deficit hyperactivity disorder): Code(s): F90.9 - Attention-deficit hyperactivity disorder, unspecified type Plan: As above (3) Anxiety: Code(s): F41.9 - Anxiety disorder, unspecified Plan: As above (4) Depression: Code(s): F32.9 - Major depressive disorder, single episode, unspecified Plan: As above Orders: Orders TSH reflex Free T4 Today R53.83 - Other fatigue Vitamin D 25-OH Total Today R53.83 - Other fatigue Testosterone, Total Today R53.83 - Other fatigue Medications: New lisdexamfetamine (Vyvanse) Partial Fill upon patient request. 30 mg PO QAM 30 days 30 caps 0RF Discontinued lisdexamfetamine (Vyvanse) Discontinued Reason: Doctor's Order 10 mg PO QAM 30 days 30 caps 0RF Coding Level of Care Code Est Pt Level 4 (17319) Diagnoses Fatigue R53.83 ADHD (attention deficit hyperactivity disorder) F90.9 Anxiety F41.9 Depression F32.9 Additional Codes CHARLEEN-7 Assessment Billing - CHARLEEN-7 Assessment Tool: CHARLEEN-7 Assessment 39261 ([id number])
[2023-12-06 17:23] VITALS: BP 126/80; PULSE 80; RESP 16; TEMP 36.2; O2SAT 96; BMI 31.9
== END 2023-12-06 17:57 | disposition home or self-care (01) ==
PROVIDERS: PCP Nurse Practitioner Family; Visit Provider Nurse Practitioner Family
DX: R53.83 Other fatigue (principal); F90.9 Attention-deficit hyperactivity disorder, unspecified type; F41.9 Anxiety disorder, unspecified; F32.9 Major depressive disorder, single episode, unspecified
CPT/HCPCS: 99214

== ENCOUNTER 2023-12-10 09:53 | Outpatient (AMB) | payer OTHER, SELFPAY ==
--- NOTE | 2023-12-10 10:08 | A.OFFPC_ITS ---
Vital Signs 12/10/23 10:12 Height 6 ft 3 in Weight 251 lb BMI 31.4 BP 122/74 Blood Pressure Location Rt brachial Position Sitting Respiration 16 Pulse 69 Pulse Source Pulse Oximeter Temp 98.2 F Temp Source Oral Pulse Oximetry (%) 98 Oxygen Delivery Method Room Air Intake Visit Reasons: 1 mos ADHD, anxiety, depression Intake Note: patient here c/o back pain. Radiation Oncologist Required: No Allergies penicillin V Allergy (Intermediate, Verified 12/10/23 10:20) rash Medication List - Last Reconciled 12/10/23 by Neel Kothari CNP acetaminophen (Tylenol Extra Strength) 500 mg PO Q6H PRN hydroxyzine HCl 25 mg PO BID PRN 30 days ibuprofen 600 mg PO Q8H PRN lisdexamfetamine (Vyvanse) 30 mg PO QAM 30 days miscellaneous medical supply (Blood Pressure Cuff) blood pressure checks daily and as needed large cuff please omeprazole 40 mg PO DAILY sucralfate (Carafate) 10 mL PO BID Tobacco use date assessed: 12/06/23 Dental Screening Dental Screen Date: 11/02/23 HPI HPI Comments History of Present Illness Details 28-year-old male presents with complaint s chronic generalized back pain for the past 2 years. He states that his pain waxes and wanes and some days he finds it difficult to get out of been as a result of increased pain. He describes the pain as sharp with occasional numbness to his fingers. He notes that he has had back pain for 5 years. He has h/o lumbosacral spondylosis. He notes history of PT and chiropractor follow up over 2 years ago with complete resolution of his back pain. No pain to his BLE. No loss of sensation. He notes that he has been using Lidocaine patch and taking Tylenol with some relief. He wears back brace at time with also helps a little. 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 Mother Hypertension Maternal Grandfather Diabetes Stroke Other Anemia Social History Household Members: Friend(s) Housing: Apartment Do you presently have visiting nurse or other home services: No Alcohol intake: never Patient Tobacco Use Status: Never used Tobacco e-Cigarette/Vaping Use: Never Used Second Hand Smoke Exposure: No service: No Current occupational status: employed Current occupation: [employer] Cognitive needs: No Hearing needs: No Vision needs: No Questionnaire Thrive Questionnaire Date Thrive assessed: 04/16/23 CHARLEEN-7 AMB Questionnaire CHARLEEN-7 Date CHARLEEN - 7 assessed: 12/06/23 Source: Developed by Drs. Sloan Almaraz, Molly Nelson, Chris Vazquez and colleagues, with an educational kulwinder from [employer]. Review of Systems Const Details: Const Denies chills, Denies fatigue, Denies fever(s), Denies headache(s) and Denies weakness ENT Denies dizziness and Denies headache(s) Card Denies chest pain, Denies lightheadedness, Denies dyspnea and Denies other (Palpitations) Resp Denies cough, Denies dyspnea, Denies wheezing and Denies other ( shortness of breath) GI Denies abdominal pain, Denies melena, Denies hematochezia, Denies change in bowel habits, Denies dyspepsia and Denies nausea Denies hematuria and Denies dysuria Musc Reports as per HPI Skin/Breast Denies rash, Denies unusual bruising and Denies wounds Neuro Denies abnormal gait, Denies dizziness, Denies headache(s), Denies memory loss, Denies numbness, Denies Sensory deficit (Neuro), Denies tingling and Denies weakness Psych Denies anxiety, Denies depression, Denies memory loss Endo Denies cold intolerance, Denies fatigue, Denies heat intolerance, Denies polydipsia and Denies polyuria Aller/Immun Denies wheezing Physical exam (Primary Care) Vital Signs: Last Vital Signs Temp 98.2 F 12/10/23 10:12 Pulse 69 12/10/23 10:12 Resp 16 12/10/23 10:12 BP 122/74 12/10/23 10:12 Pulse Ox 98 12/10/23 10:12 Oxygen Delivery Method Room Air 12/10/23 10:12 BMI result Body Mass Index 31.4 Tobacco/Smoking Status: Tobacco use Status Tobacco use date assessed 12/06/23 12/10/23 10:11 Patient Tobacco Use Status Never used Tobacco 12/10/23 10:11 e-Cigarette/Vaping Use Never Used 12/10/23 10:11 Thrive Assessment: Date of Thrive Assessment Date Thrive assessed 04/16/23 12/10/23 10:11 Const Other: General: no acute distress and well developed Nutritional Appearance: well nourished Orientation/consciousness: patient oriented x3 HENMT Head: Yes normocephalic and Yes atraumatic Eyes General: appearance normal, both eyes and all related structures Pupils: Equal, round and reactive pupils present EOM: EOMs intact bilaterally Resp Effort & Inspection: normal respiratory effort Auscultation: clear to auscultation bilaterally Cardio Rate: regular rate Rhythm: regular rhythm Heart sounds: S1 normal heart sound present, S2 normal heart sound present, no gallops, no murmurs and no rubs GI Palpation (GI): No Abdominal aortic bruit present, Soft to palpation, nontender, No hepatosplenomegaly present and No Rebound tenderness present Auscultation: normal bowel sounds General: Yes no CVA tenderness Back/Spine/Pelvis Back: no CVA tenderness Cervical Spine: cervical ROM normal and No Cervical spine tenderness Thoracic/Lumbar Spine: thoraco-lumbar ROM normal, No pain with thoraco-lumbar ROM, No thoracic spinal tenderness and lumbar spinal tenderness Extrem General: Yes normal to inspection, No edema and No calf tenderness Skin General: warm and dry. Normal skin color. Normal skin turgor Neuro General: patient oriented x3, gait normal and no focal neuro deficit Cranial nerves: Yes Equal, round and reactive pupils present Cognition (Neuro): normal cognition Gait exam (Neuro): Normal gait present Sensory Exam: No Sensory deficit (Neuro) Psych Appearance: grossly normal Affect: normal affect Attitude: cooperative Thought process: Normal thought process present Assessment and Plan Assessment & Plan (1) Back pain: Code(s): M54.9 - Dorsalgia, unspecified Plan: Reports constant thoracic and lumbar back pain for the past 2 years. He has history of back pain for the past 5 years. The pain waxes and wanes. Tylenol and lidocaine patch provide minimal relief. He had significant relief with physical therapy and chiropractor follow-up. Lumbar spine tenderness. No overt injury or trauma Ibuprofen ordered. Advised to take as prescribed and with meals Warm/cool compresses encouraged. May use a heating pad as needed Referred to physical therapy Follow-up with worsening or new symptoms Verbalized understanding and agreed with the treatment plan Orders: Orders PT Evaluation and Treatment Today M54.9 - Dorsalgia, unspecified Medications: Refilled ibuprofen 600 mg PO Q8H PRN 30 tabs 2RF pain Coding Level of Care Code Est Pt Level 4 (16254) Diagnoses Back pain M54.9
[2023-12-10 10:12] VITALS: BP 122/74; PULSE 69; RESP 16; TEMP 36.8; O2SAT 98; BMI 31.4
== END 2023-12-10 10:37 | disposition home or self-care (01) ==
PROVIDERS: PCP Nurse Practitioner Family; Visit Provider Nurse Practitioner Family
DX: M54.9 Dorsalgia, unspecified (principal)
CPT/HCPCS: 99214

== ENCOUNTER 2023-12-10 10:39 | Outpatient (REF) | payer OTHER, SELFPAY ==
[2023-12-10 15:34] LABS: TSH reflex Free T4 0.62 uIU/mL (0.32-4.0); Vitamin D 25-OH Total 39.6 ng/mL (>30)
[2023-12-15 14:23] LABS: Testosterone, Total 395 ng/dL (250-1100)
== END 2023-12-10 10:40 | disposition home or self-care (01) ==
LOC: HO.WFDLDS 10:39
PROVIDERS: Visit Provider Nurse Practitioner Family
DX: R53.1 Weakness (principal); R53.83 Other fatigue
CPT/HCPCS: 36415; 82306; 84403; 84443

== ENCOUNTER 2023-12-20 10:29 | Outpatient (AMB) | payer OTHER, SELFPAY ==
--- NOTE | 2023-12-20 10:34 | MHC.PC.OV ---
Vital Signs 12/20/23 10:51 Height 6 ft 3 in Weight 252 lb 8 oz BMI 31.6 BP 122/78 Blood Pressure Location Lt brachial Position Sitting Respiration 16 Pulse 65 Pulse Source Pulse Oximeter Temp 97.9 F Temp Source Oral Pulse Oximetry (%) 97 Oxygen Delivery Method Room Air Intake Visit Reasons: 2 wks ADHD, anxiety, depression, fatigue Intake Note: patient here for 2 week follow up on ADHD, anxiety,depression and fatigue. Surgical Pathologist Required: No Allergies penicillin V Allergy (Intermediate, Verified 12/20/23 10:50) rash Tobacco use date assessed: 12/20/23 Dental Screening Dental Screen Date: 12/20/23 Did you have a dental visit in the last 12 months?: No Did you have a dental problem in the last 6 months where you did not have access to dental care?: No Was dental information given to patient?: Yes HPI HPI Comments History of Present Illness Details 28-year-old male presents for anxiety, depression, and fatigue follow-up His Vyvanse was increased from 10 mg daily to 30 mg daily at his last visit, 2 weeks ago He admits to taking his medications as prescribed without adverse reactions He abruptly stopped taking clonidine without any adverse reactions He notes that he has been able to start and complete tasks. He feels more energetic. 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 Mother Hypertension Maternal Grandfather Diabetes Stroke Other Anemia Social History Household Members: Friend(s) Housing: Apartment Do you presently have visiting nurse or other home services: No Alcohol intake: never Patient Tobacco Use Status: Never used Tobacco e-Cigarette/Vaping Use: Never Used Second Hand Smoke Exposure: No service: No Current occupational status: employed Current occupation: [email or web address] Cognitive needs: No Hearing needs: No Vision needs: No Questionnaire PHQ-9 Over the last 2 weeks, how often have you been bothered by any of the following problems? 1. Little interest or pleasure in doing things: several days 2. Feeling down, depressed, or hopeless: several days 3. Trouble falling or staying asleep, or sleeping too much: nearly every day 4. Feeling tired or having little energy: nearly every day 5. Poor appetite or overeating: several days 6. Feeling bad about yourself - or that you are a failure or have let yourself or your family down: several days 7. Trouble concentrating on things, such as reading the newspaper or watching television: several days 8. Moving or speaking so slowly that other people could have noticed. Or the opposite - being so fidgety or restless that you have been moving around a lot more than usual: several days 9. Thoughts that you would be better off or of hurting yourself in some way: not at all Total score: 12 Depression Screening Interpretation: Positive Depression Screening Follow-up: Existing condition and In treatment Depression Screening Done: Yes 48283 - PHQ-9 Billing: Yes Source: Developed by Drs. Sloan Almaraz, Molly Nelson, Chris Vazquez and colleagues, with an educational kulwinder from [employer]. Thrive Questionnaire Date Thrive assessed: 04/16/23 CHARLEEN-7 AMB Questionnaire CHARLEEN-7 Date CHARLEEN - 7 assessed: 12/20/23 Feeling nervous, anxious, or on edge: 2 = More than half the days Not being able to stop or control worryin = More than half the days Worrying too much about different things: 2 = More than half the days Trouble relaxin = More than half the days Being so restless that it is hard to sit still: 2 = More than half the days Becoming easily annoyed or irritable: 1 = Several days Feeling afraid as if something awful might happen: 1 = Several days Total CHARLEEN-7 score (0-4 normal; 5-9 mild; 10-14 moderate; 15-21 severe): 12 Source: Developed by Drs. Sloan Almaraz, Molly Nelson, Chris Vazquez and colleagues, with an educational kulwinder from [employer] CHARLEEN-7 Assessment Billing CHARLEEN-7 Assessment Tool: CHARLEEN-7 Assessment [id number] Review of Systems Const Details: Const Denies chills, Denies fatigue, Denies fever(s), Denies headache(s) and Denies weakness ENT Denies dizziness and Denies headache(s) Card Denies chest pain, Denies lightheadedness, Denies dyspnea and Denies other (Palpitations) Resp Denies cough, Denies dyspnea, Denies wheezing and Denies other ( shortness of breath) GI Denies abdominal pain, Denies melena, Denies hematochezia, Denies change in bowel habits, Denies dyspepsia and Denies nausea Denies hematuria and Denies dysuria Musc Denies abnormal gait, Denies myalgias, Denies arthralgias, Denies numbness and Denies tingling Skin/Breast Denies rash, Denies unusual bruising and Denies wounds Neuro Denies abnormal gait, Denies dizziness, Denies headache(s), Denies memory loss, Denies numbness, Denies Sensory deficit (Neuro), Denies tingling and Denies weakness Psych Denies anxiety, Reports depression, Denies memory loss Endo Denies cold intolerance, Denies fatigue, Denies heat intolerance, Denies polydipsia and Denies polyuria Aller/Immun Denies wheezing Physical exam (Primary Care) Vital Signs: Last Vital Signs Temp 97.9 F 12/20/23 10:51 Pulse 65 12/20/23 10:51 Resp 16 12/20/23 10:51 BP 122/78 12/20/23 10:51 Pulse Ox 97 12/20/23 10:51 Oxygen Delivery Method Room Air 12/20/23 10:51 BMI result Body Mass Index 31.6 Tobacco/Smoking Status: Tobacco use Status Tobacco use date assessed 12/20/23 12/20/23 10:51 Patient Tobacco Use Status Never used Tobacco 12/20/23 10:34 e-Cigarette/Vaping Use Never Used 12/20/23 10:34 PHQ-9: PHQ-9 Score PHQ-9: Total score 12 12/20/23 11:25 Depression Screening Interpretation: Positive Depression Screening Follow-up: Existing condition and In treatment Thrive Assessment: Date of Thrive Assessment Date Thrive assessed 04/16/23 12/20/23 10:34 Const Other: General: no acute distress and well developed Nutritional Appearance: well nourished Orientation/consciousness: patient oriented x3 HENMT Head: Yes normocephalic and Yes atraumatic Eyes General: appearance normal, both eyes and all related structures Pupils: Equal, round and reactive pupils present EOM: EOMs intact bilaterally Resp Effort & Inspection: normal respiratory effort Auscultation: clear to auscultation bilaterally Cardio Rate: regular rate Rhythm: regular rhythm Heart sounds: S1 normal heart sound present, S2 normal heart sound present, no gallops, no murmurs and no rubs GI Palpation (GI): No Abdominal aortic bruit present, Soft to palpation, nontender, No hepatosplenomegaly present and No Rebound tenderness present Auscultation: normal bowel sounds General: Yes no CVA tenderness Back/Spine/Pelvis Back: no CVA tenderness Cervical Spine: cervical ROM normal and No Cervical spine tenderness Thoracic/Lumbar Spine: thoraco-lumbar ROM normal, No pain with thoraco-lumbar ROM, No thoracic spinal tenderness and No lumbar spinal tenderness Extrem General: Yes normal to inspection, No edema and No calf tenderness Skin General: warm and dry. Normal skin color. Normal skin turgor Neuro General: patient oriented x3, gait normal and no focal neuro deficit Cranial nerves: Yes Equal, round and reactive pupils present Cognition (Neuro): normal cognition Gait exam (Neuro): Normal gait present Sensory Exam: No Sensory deficit (Neuro) Psych Appearance: grossly normal Affect: normal affect Attitude: cooperative Thought process: Normal thought process present Assessment and Plan Assessment & Plan (1) Anxiety: Code(s): F41.9 - Anxiety disorder, unspecified Plan: Anxiety and depressive symptoms are improving. He experiences trouble falling and staying asleep. He has been starting and completing more tasks, and gaining more energy since Vyvanse was increased to 30 mg daily PHQ-9 and CHARLEEN-7 scores revealed moderate depression and anxiety Recent vitamin-D, TSH, and testosterone levels are normal Continue to take Vyvanse 30 mg daily Clonidine ER 0.1 mg at bedtime ordered to target insomnia Routine exercise encouraged Follow-up in 1 month or sooner with worsening or new symptoms Verbalized understanding and agreed with the treatment plan (2) Depression: Code(s): F32.9 - Major depressive disorder, single episode, unspecified Plan: Plan as above (3) Fatigue: Code(s): R53.83 - Other fatigue Plan: Plan as above (4) Erectile dysfunction: Code(s): N52.9 - Male erectile dysfunction, unspecified Plan: Reports erectile dysfunction for the past 1 year ED is a common side effects of Vyvanse. However, fatigue and stress contribute significantly to low libido and sexual problems Routine exercise encouraged Continue current treatment regimen Will re-evaluate his symptoms in 1 month and will make changes if his symptoms persist or worsen Verbalized understanding and agreed with the plan Medications: New clonidine HCl ER 0.1 mg PO BEDTIME 30 days 30 tabs 3RF Coding Level of Care Code Est Pt Level 4 (05153) Complex EM visit Add On G2211 Diagnoses Anxiety F41.9 Depression F32.9 Fatigue R53.83 Erectile dysfunction N52.9 Additional Codes CHARLEEN-7 Assessment Billing - CHARLEEN-7 Assessment Tool: CHARLEEN-7 Assessment 09126 ([id number])
[2023-12-20 10:51] VITALS: BP 122/78; PULSE 65; RESP 16; TEMP 36.6; O2SAT 97; BMI 31.6
== END 2023-12-20 11:24 | disposition home or self-care (01) ==
PROVIDERS: PCP Nurse Practitioner Family; Visit Provider Nurse Practitioner Family
DX: R53.83 Other fatigue (principal); F41.9 Anxiety disorder, unspecified; F32.9 Major depressive disorder, single episode, unspecified; N52.9 Male erectile dysfunction, unspecified
CPT/HCPCS: 99214; G2211

== ENCOUNTER 2023-12-27 11:26 | Outpatient (AMB) | payer OTHER, SELFPAY ==
[2023-12-27 11:35] VITALS: BP 129/70; PULSE 60
--- NOTE | 2023-12-27 11:35 | MHC.OFFVIS ---
Vital Signs 12/27/23 11:35 Height 6 ft 3 in Weight 240 lb 4.862 oz BMI 30.0 BP 129/70 Blood Pressure Location Lt brachial Position Sitting Pulse 60 Intake Visit Reasons: r/s from 10/24 Intake Note: Tyler presents in the office as a follow up. CC: HE states that he is fatigued - no other GI concerns at this time. Manager Home Required: No Allergies penicillin V Allergy (Intermediate, Verified 12/27/23 11:37) rash HPI HPI r/s from 10/24: Details: 28 yr old m w hx of crohns and non compliance being seen for f/u RECAP: Initially diagnosed with crohsn aged 17 I saw patient as inpatient consult 02/2021, had also seen him at [facility] where I use to work Pain was sudden onset in the mid abdomen and sharp and stabbing in nature. It was at least 5/10 in severity with no relieving or exacerbating factors. He had no nausea or vomiting, had been passing normal colored stool without blood or melena. Not been using nsaids. No fever or chills, appetite had been good. he is not on any medication for crohns, had been on humira in past but stopped due to intolerance and was lost to follow up with GI thereafter, controlling his disease with diet. Labs significant for WBC count of 13.9, ALT of 49, CRP mildly raised CT with few mildly prominent fecalized small bowel loops in right lower quadrant with adjacent mesenteric stranding and small amount of free fluid suspicious for sequelae of small-bowel obstruction He was commenced on antibiotics and fluids I saw him again and commenced on entyvio he went to ED 11/2021--Ct scan with normal GI tract, no acute inflammation Stool PCR was pos for E coli He then missed the entyvio dose October 2021, and prior dose was 08/2021 so he was restarted on entyvio with re induction dosing MRe: 01/31-- normal EGD/colo: 05/04--internal hemorrhoids and erosive esophagitis --neg inflammation he did go to the Ed due to sharp upper abd pains worse with food since last few days, no diarrhe,a no vomiting or nausea, Ct was done with some degen changes in spine and moderate constipation, to my read also duodenal, gastric thickening labs were nml INTERIM: He is feeling well he has fatigue, stress anxiety--taking caffeine 300 mg or more daily he stopped entyvio since July taking PPI --EGD 09/02 -with erosive esophagitis grade D he has no diarrhea -no blood in stool, EXAM: GENERAL: The patient is well developed and nontoxic. VITAL SIGNS:see workflow HEENT: Nonicteric sclerae, PERRLA, EOMI. Oropharynx clear. Moist mucous membranes. Conjunctivae appear well perfused. No thyroid mass. CHEST: Chest wall is nontender. HEART: Regular rate and rhythm without murmurs. LUNGS: Clear to auscultation bilaterally. ABDOMEN: Soft, positive bowel sounds, nontender, no organomegaly.no flank tenderness SKIN: No rash, no excessive bruising, petechiae, or purpura. NEUROLOGIC: Cranial nerves II-XII intact without motor/sensory deficit. 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 Mother Hypertension Maternal Grandfather Diabetes Stroke Other Anemia Social History Household Members: Friend(s) Housing: Apartment Do you presently have visiting nurse or other home services: No Alcohol intake: never Patient Tobacco Use Status: Never used Tobacco e-Cigarette/Vaping Use: Never Used Second Hand Smoke Exposure: No service: No Current occupational status: employed Current occupation: [employer] Cognitive needs: No Hearing needs: No Vision needs: No Physical Exam Vital Signs: Last Vital Signs Pulse 60 12/27/23 11:35 BP 129/70 12/27/23 11:35 BMI result Body Mass Index 30.0 Assessment & Plan Assessment & Plan (1) Crohn's disease: Code(s): K50.90 - Crohn's disease, unspecified, without complications Category: Medical Plan: see above Medications: New sodium,potassium,mag sulfates 17.5-3.13-1.6 gram (Suprep Bowel Prep Kit) DILUTE; drink 1/2 at 6-8 pm and half at 11 PM- 1AM 354 mL 0RF Coding Level of Care Code Est Pt Level 4 (01138) Diagnoses Crohn's disease K50.90
== END 2023-12-27 13:24 | disposition home or self-care (01) ==
PROVIDERS: PCP Nurse Practitioner Family; Visit Provider Internal Medicine Gastroenterology
DX: K50.90 Crohn's disease, unspecified, without complications (principal)
CPT/HCPCS: 99214

== ENCOUNTER → 2023-12-27 11:26 | Outpatient (BNVA) | payer OTHER, SELFPAY | PROVIDERS: PCP Nurse Practitioner Family; Visit Provider Internal Medicine Gastroenterology | DX: K50.90 Crohn's disease, unspecified, without complications (principal) | CPT/HCPCS: 99212 ==

== ENCOUNTER 2023-12-31 13:57 | Outpatient (AMB) | payer OTHER, SELFPAY ==
--- NOTE | 2023-12-31 13:58 | MHC.OFFVIS ---
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 Accompanied by: Self / Same As Patient Allergies penicillin V Allergy (Intermediate, Verified 12/31/23 14:05) rash Medication List - Last Reconciled 12/31/23 by BHANU Meza acetaminophen (Tylenol Extra Strength) 500 mg PO Q6H PRN clonidine HCl ER 0.1 mg PO BEDTIME 30 days hydroxyzine HCl 25 mg PO BID PRN 30 days ibuprofen 600 mg PO Q8H PRN lisdexamfetamine (Vyvanse) 30 mg PO QAM 30 days miscellaneous medical supply (Blood Pressure Cuff) blood pressure checks daily and as needed large cuff please omeprazole 40 mg PO DAILY sodium,potassium,mag sulfates 17.5-3.13-1.6 gram (Suprep Bowel Prep Kit) DILUTE; drink 1/2 at 6-8 pm and half at 11 PM- 1AM sucralfate (Carafate) 10 mL PO BID HPI Comments Details: 28-yr-old male presents for follow-up visit of sleep apnea. Pt denies any significant interval medical history changes. Pt did have a f/u in-lab sleep study which was negative for sleep apnea w/ AHI0.6/hr, but did show PLMS 20/h w/ PLMS arousal index of 3/hr. Continues to have difficulty initiating sleep, maintaining sleep, and when he does not sleep well he has daytime sleepiness. He does endorse leg restlessness, leg cramps at times, which typically start at bedtime. Denies creepy crawling sensation. He does adhere to a good sleep hygiene routine. Sometimes may take melatonin. He has a remote h/o anmeia. Reviewed recent labs- TSH, vit D- WNL. August 2023- elevated AST/ALT 124/63 H. He exercises a lot, walks 10,000 miles per day, when not working does resistance training. 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 Mother Hypertension Maternal Grandfather Diabetes Stroke Other Anemia Social History Household Members: Friend(s) Housing: Apartment Do you presently have visiting nurse or other home services: No Alcohol intake: never Patient Tobacco Use Status: Never used Tobacco e-Cigarette/Vaping Use: Never Used Second Hand Smoke Exposure: No service: No Current occupational status: employed Current occupation: [employer], [employer] Cognitive needs: No Hearing needs: No Vision needs: No Physical Exam Vital Signs: Last Vital Signs Pulse 78 12/31/23 14:02 BP 150/90 H 12/31/23 14:02 Pulse Ox 98 12/31/23 14:02 Oxygen Delivery Method Room Air 12/31/23 14:02 BMI result Body Mass Index 30.5 Const General: no acute distress Orientation/consciousness: patient oriented x3 HEENT Other: Mallampati stage Resp Effort & Inspection: normal respiratory effort and able to speak in complete sentences Neuro General: patient oriented x3 Psych Mental Status: mental status grossly normal Speech and movement: Clear speech present Attitude: cooperative Assessment & Plan Assessment & Plan (1) RLS (restless legs syndrome): Code(s): G25.81 - Restless legs syndrome Category: Medical (2) Periodic limb movements of sleep: Code(s): G47.61 - Periodic limb movement disorder Category: Medical (3) Insomnia: Code(s): G47.00 - Insomnia, unspecified Category: Medical Qualifiers: Insomnia type: unspecified Qualified Code(s): G47.00 - Insomnia, unspecified Plan Reviewed HST and In-lab PSG- no evidence of sleep apnea, however, results do show PLMS a/w arousals at least 3 x/hr. Pt does endorse s/s c/w RLS. Will check labs and recheck CMP- to round out RLS/PLMS work-up. [place] Gabapentin 100-300mg qhs (may start 1-3 hrs prior to bedtime). May use melatonin prn- may have better effect if taken in evening rather than at bedtime. Information shred on RLS education resources. Will follow-up upon review of above and patient to follow-up in clinic in 6 months or sooner prn. Orders: Orders IRON PROFILE Today D64.9 - Anemia, unspecified, I10 - Essential (primary) hypertension, K50.90 - Crohn's disease, unspecified, without complications Ferritin Today D64.9 - Anemia, unspecified, I10 - Essential (primary) hypertension, K50.90 - Crohn's disease, unspecified, without complications Homocysteine Today D64.9 - Anemia, unspecified, I10 - Essential (primary) hypertension, K50.90 - Crohn's disease, unspecified, without complications Comprehensive Met. Panel Today D64.9 - Anemia, unspecified, I10 - Essential (primary) hypertension, K50.90 - Crohn's disease, unspecified, without complications Vitamin B12 and Folate Today D64.9 - Anemia, unspecified, I10 - Essential (primary) hypertension, K50.90 - Crohn's disease, unspecified, without complications Methylmalonic Acid Today D64.9 - Anemia, unspecified, I10 - Essential (primary) hypertension, K50.90 - Crohn's disease, unspecified, without complications Hemoglobin A1c Today D64.9 - Anemia, unspecified, I10 - Essential (primary) hypertension, K50.90 - Crohn's disease, unspecified, without complications Medications: New gabapentin 100 - 300 mg (1 - 3 x 100 mg) PO BEDTIME 30 days 90 caps 3RF Coding Level of Care Code Est Pt Level 4 (88517) Diagnoses RLS (restless legs syndrome) G25.81 Periodic limb movements of sleep G47.61 Insomnia, unspecified type G47.00 Insomnia type: unspecified
[2023-12-31 14:02] VITALS: BP 150/90; PULSE 78; O2SAT 98; BMI 30.5
== END 2023-12-31 14:50 | disposition home or self-care (01) ==
PROVIDERS: Absent Provider Nurse Practitioner Family; PCP Hospitalist; Visit Provider Nurse Practitioner Family
DX: G25.81 Restless legs syndrome (principal); G47.61 Periodic limb movement disorder; G47.00 Insomnia, unspecified
CPT/HCPCS: 99214

== ENCOUNTER 2023-12-31 13:57 | Outpatient (REF) | payer OTHER, SELFPAY ==
[2023-12-31 15:47] LABS: Estimated Average Glucose 97 mg/dL; Hemoglobin A1C 115.7938 umol/L
[2023-12-31 15:56] LABS: Alanine Aminotransferase 19 U/L (0-40); Albumin Level 4.7 g/dL (3.5-5.0); Alkaline Phosphatase 58 U/L (39-117); Anion Gap 12 (12-20); Aspartate Amino Transferase 18 U/L (5-37); Bilirubin Total 0.7 mg/dL (0.0-1.0); Blood Urea Nitrogen 13 mg/dL (9-16); Calcium 9.5 mg/dL (8.4-10.2); Carbon Dioxide 25 mmol/L (22-29); Chloride 109 mmol/L (96-108); Estimated Glomerular Filt Rate > 60; Glucose Random 87 mg/dL (60-115); Iron 112 mcg/dL (45-160); Percent Iron Saturation 45 % (15-50); Potassium 4.1 mmol/L (3.3-5.1); Sodium 142 mmol/L (135-145); Total Iron Binding Capacity 248 mcg/dL (228-428); Total Protein 7.5 g/dL (6.5-8.0); Unsaturated Iron Binding 136 ug/dL
[2023-12-31 16:10] LABS: Ferritin 247 ng/mL (20-250)
[2023-12-31 16:26] LABS: Folate > 20.0 ng/mL (> or = 4.0); Vitamin B12 982 pg/mL (200-900)
[2024-01-04 22:28] LABS: Methylmalonic Acid 89 nmol/L (55-335)
== END 2023-12-31 13:58 | disposition home or self-care (01) ==
LOC: HO.LAB 13:57
PROVIDERS: Absent Provider Nurse Practitioner Family; PCP Hospitalist; Visit Provider Nurse Practitioner Family
DX: D64.9 Anemia, unspecified (principal); I10 Essential (primary) hypertension; K50.90 Crohn's disease, unspecified, without complications; G25.81 Restless legs syndrome; G47.61 Periodic limb movement disorder; G47.00 Insomnia, unspecified
CPT/HCPCS: 36415; 80053; 82607; 82728; 82746; 83036; 83090; 83540; 83921; 99212

== ENCOUNTER 2024-01-21 14:14 | Outpatient (AMB) | payer OTHER, SELFPAY ==
--- NOTE | 2024-01-21 14:47 | A.OFFPSYCH_ITS ---
Intake Vital Signs 01/21/24 16:02 Height 6 ft 3 in Weight 240 lb Intake Visit Reasons: consult Pattern Storage Clerk Required: No Allergies penicillin V Allergy (Intermediate, Verified 01/24/24 08:32) rash Medication List - Last Reconciled 01/21/24 by Jacquelyn Cleveland APRN acetaminophen (Tylenol Extra Strength) 500 mg PO Q6H PRN clonidine HCl ER 0.1 mg PO BEDTIME 30 days gabapentin 100 - 300 mg (1 - 3 x 100 mg) PO BEDTIME 30 days hydroxyzine HCl 25 mg PO BID PRN 30 days ibuprofen 600 mg PO Q8H PRN lisdexamfetamine (Vyvanse) 30 mg PO QAM 30 days miscellaneous medical supply (Blood Pressure Cuff) blood pressure checks daily and as needed large cuff please omeprazole 40 mg PO DAILY sodium,potassium,mag sulfates 17.5-3.13-1.6 gram (Suprep Bowel Prep Kit) DILUTE; drink 1/2 at 6-8 pm and half at 11 PM- 1AM sucralfate (Carafate) 10 mL PO BID HPI- Psychiatric Chief Complaint: consult HPI Narrative: pt referred by PCP for evaluation of depression, anxiety and adhd. pt reports he has always had ADHD, anxiety and been shy his whole life but was able to cope with it until approximately 2 yrs ago. He states he is not sure why anxiety increased but wonders if it is because he has more responsibilities now; he says 2 yrs ago he decided he wanted to get a job and lose weight; he had not been working and he was over 300# He is now working FT as [employer] for [employer]. And he has lost 100 # by changing his eating habits and working out 3-4 times a week. He reports he is not taking the clonidine as he feels it was not helpful he also stopped taking the gabapentin. He does take the hydroxyzine because he feels it helps him a little bit. He takes Vyvanse 30 mg every day at 05:00 and says that it is very helpful. Patient's PHQ-9 equals 12 and his Genralized Anxiety Disorder-7 equals 10 he worsening Past Psychiatric History: RVCC in past. no IPLOC Subjective Subjective Subjective Medication Compliance: Yes Side effects from medications: No Review of Systems Medical Review of Systems: unchanged Mental Status Exam Mental Status Exam Patient Appearance: Well Grooomed and Appropriate Patient Orientation: Person, Place, Time and Situation Level of Consciousness: Awake and Appropriate Patient Behavior: Appropriate and Talkative Mood Description: Anxious and Sad Affect Description: Anxious and Sad Patient Cognition Impaired: No Ability to Follow Directions: Good Speech Pattern: Clear Memory Description: Intact Hallucinations: None Delusions: Not Present Thought Process: Intact and Goal Oriented Thought Content: positive for Goal Oriented Judgement: Good Assessment and Plan Assessment & Plan (1) Attention and concentration deficit: Status: Acute Code(s): R41.840 - Attention and concentration deficit (2) Sleep disturbance: Status: Acute Code(s): G47.9 - Sleep disorder, unspecified (3) RLS (restless legs syndrome): Status: Acute Code(s): G25.81 - Restless legs syndrome (4) CHARLEEN (generalized anxiety disorder): Status: Acute Code(s): F41.1 - Generalized anxiety disorder Plan stop clonidine as pt not taking it stop gabapentin as pt not taking it increase hydroxyzine 25mg to 1-2 at bedtime as needed pt taking OTC magnesium glycinate 100mg - advised to increase to 200mg at bedtime and may take 100mg in middle of night if wakes up encourage pt to increase his intake of potassium rich foods to reduce restless legs at night Medications: Changed From hydroxyzine HCl 25 mg PO BID 30 days PRN 90 tabs 1RF anxiety To hydroxyzine HCl 25 mg orally Take one tablet daily if needed for anxiety and take 1-2 before bedtime as needed PRN; 90 tabs 1RF anxiety 30 days Refilled lisdexamfetamine (Vyvanse) Partial Fill upon patient request. 30 mg PO QAM 30 caps 0RF 30 days Discontinued clonidine HCl ER Discontinued Reason: Doctor's Order 0.1 mg PO BEDTIME 30 days 30 tabs 3RF gabapentin Discontinued Reason: Doctor's Order 100 - 300 mg (1 - 3 x 100 mg) PO BEDTIME 30 days 90 caps 3RF Orders: Orders ECG 12 lead EKG 01/21/24 Z79.899 - Other assisted (current) drug therapy Counseling and coordination of Care Pt. Self Management counseling: Maintenance-social rhythm, Mod caffeine/ETOH intake, Sleep hygiene, Behavior activation, General coping skills and Problem solving Medication management counseling: Effectiveness, Side effects, Dosing range, Duration, Drug interaction and Adherence Diagnosis and Prognosis Counseling: Accuracy of diagnosis, Prognosis over time, Impact of diagnosis on life functions, Impact of family relationship, Problematic behaviors secondary to diagnosis and Adequacy of current interventions Details: I spent 75 minutes reviewing the record, seeing the patient and documenting in the medical record. Counseling provided to the patient/caregiver as outlined below. Addressed patient/caregiver concerns regarding current medication regime including effective adherence. Addressed patient/caregiver concerns regarding diagnosis and prognosis including accuracy of diagnosis, prognosis over time, impact of diagnosis. Addressed patient/caregiver concerns regarding impact of recent stressors. [facility] Medical History (Updated 01/24/24 @ 08:46 by Neel Kothari CNP) Anemia Crohn's disease ADHD (attention deficit hyperactivity disorder) 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 He was unemployed until 2 years ago when he decided to try to get a job. Substance History: No substance use Trauma History: Diagnosed with Crohn's disease as a child Coding Level of Care Code Psych Diag Eval w/Med (13739) Diagnoses Attention and concentration deficit R41.840 Sleep disturbance G47.9 RLS (restless legs syndrome) G25.81 CHARLEEN (generalized anxiety disorder) F41.1
== END 2024-01-21 16:43 | disposition home or self-care (01) ==
LOC: HO.HOP 14:14
PROVIDERS: PCP Nurse Practitioner Family; Visit Provider Clinical Nurse Specialist Psychiatric/Mental Health
DX: F41.1 Generalized anxiety disorder (principal); R41.840 Attention and concentration deficit; G47.9 Sleep disorder, unspecified; G25.81 Restless legs syndrome
CPT/HCPCS: 90792

== ENCOUNTER → 2024-01-21 14:14 | Outpatient (BNVA) | payer OTHER, SELFPAY | PROVIDERS: PCP Nurse Practitioner Family; Visit Provider Clinical Nurse Specialist Psychiatric/Mental Health | DX: F41.1 Generalized anxiety disorder (principal); R41.840 Attention and concentration deficit; G47.9 Sleep disorder, unspecified; G25.81 Restless legs syndrome; Z79.899 Other long term (current) drug therapy | CPT/HCPCS: 90792 ==

== ENCOUNTER 2024-01-24 08:27 | Outpatient (AMB) | payer OTHER, SELFPAY ==
--- NOTE | 2024-01-24 08:30 | MHC.PC.OV ---
Vital Signs 01/24/24 08:33 Height 6 ft 3 in Weight 243 lb 6 oz BMI 30.4 BP 138/98 H Blood Pressure Location Lt brachial Position Sitting Respiration 16 Pulse 69 Pulse Source Pulse Oximeter Temp 98.1 F Temp Source Oral Pulse Oximetry (%) 98 Oxygen Delivery Method Room Air Intake Visit Reasons: 1 mos anx, dep, ADHD, insomnia Intake Note: patient here for 1 month follow up on anxiety, depression, ADHD, and insomnia. 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 He admits to taking his medications as prescribed without adverse reactions She notes that she stopped taking Clonidine because it worsened his insomnia He reports controlled anxiety and depressive symptoms. Sleep is currently adequate. He has been exercising more He is followed by [facility] outpatient psychiatry. His first visit with him was on 01/21/2024 and has a follow up appointment early next month [facility] Medical History (Updated 01/24/24 @ 08:46 by Neel Kothari CNP) Anemia Crohn's disease ADHD (attention deficit hyperactivity disorder) 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 Mother Hypertension Maternal Grandfather Diabetes Stroke Other Anemia Social History Household Members: Friend(s) Housing: Apartment Do you presently have visiting nurse or other home services: No Alcohol intake: never Patient Tobacco Use Status: Never used Tobacco e-Cigarette/Vaping Use: Never Used Second Hand Smoke Exposure: No service: No Current occupational status: employed Current occupation: [employer] Cognitive needs: No Hearing needs: No Vision needs: No Questionnaire PHQ-9 Over the last 2 weeks, how often have you been bothered by any of the following problems? 1. Little interest or pleasure in doing things: several days 2. Feeling down, depressed, or hopeless: several days 3. Trouble falling or staying asleep, or sleeping too much: several days 4. Feeling tired or having little energy: several days 5. Poor appetite or overeating: more than half the days 6. Feeling bad about yourself - or that you are a failure or have let yourself or your family down: several days 7. Trouble concentrating on things, such as reading the newspaper or watching television: several days 8. Moving or speaking so slowly that other people could have noticed. Or the opposite - being so fidgety or restless that you have been moving around a lot more than usual: several days 9. Thoughts that you would be better off or of hurting yourself in some way: not at all Total score: 9 Depression Screening Interpretation: Positive Depression Screening Follow-up: Existing condition and In treatment Depression Screening Done: Yes 53130 - PHQ-9 Billing: Yes Source: Developed by Drs. Sloan Almaraz, Molly Nelson, Chris Vazquez and colleagues, with an educational kulwinder from [employer] Thrive Questionnaire Date Thrive assessed: 04/16/23 CHARLEEN-7 AMB Questionnaire CHARLEEN-7 Date CHARLEEN - 7 assessed: 01/24/24 Feeling nervous, anxious, or on edge: 1 = Several days Not being able to stop or control worryin = Several days Worrying too much about different things: 1 = Several days Trouble relaxin = Several days Being so restless that it is hard to sit still: 2 = More than half the days Becoming easily annoyed or irritable: 1 = Several days Feeling afraid as if something awful might happen: 0 = Not at all Total CHARLEEN-7 score (0-4 normal; 5-9 mild; 10-14 moderate; 15-21 severe): 7 Source: Developed by Drs. Sloan Almaraz, Molly Nelson, Chris Vazquez and colleagues, with an educational kulwinder from [employer] CHARLEEN-7 Assessment Billing CHARLEEN-7 Assessment Tool: CHARLEEN-7 Assessment 35414 Review of Systems Const Details: Const Denies chills, Denies fatigue, Denies fever(s), Denies headache(s) and Denies weakness ENT Denies dizziness and Denies headache(s) Card Denies chest pain, Denies lightheadedness, Denies dyspnea and Denies other (Palpitations) Resp Denies cough, Denies dyspnea, Denies wheezing and Denies other ( shortness of breath) GI Denies abdominal pain, Denies melena, Denies hematochezia, Denies change in bowel habits, Denies dyspepsia and Denies nausea Denies hematuria and Denies dysuria Musc Denies abnormal gait, Denies myalgias, Denies arthralgias, Denies numbness and Denies tingling Skin/Breast Denies rash, Denies unusual bruising and Denies wounds Neuro Denies abnormal gait, Denies dizziness, Denies headache(s), Denies memory loss, Denies numbness, Denies Sensory deficit (Neuro), Denies tingling and Denies weakness Psych Denies anxiety, Denies depression, Denies memory loss Endo Denies cold intolerance, Denies fatigue, Denies heat intolerance, Denies polydipsia and Denies polyuria Aller/Immun Denies wheezing Physical exam (Primary Care) Vital Signs: Last Vital Signs Temp 98.1 F 01/24/24 08:33 Pulse 69 01/24/24 08:33 Resp 16 01/24/24 08:33 BP 138/98 H 01/24/24 08:33 Pulse Ox 98 01/24/24 08:33 Oxygen Delivery Method Room Air 01/24/24 08:33 BMI result Body Mass Index 30.4 Tobacco/Smoking Status: Tobacco use Status Tobacco use date assessed 01/24/24 01/24/24 08:40 Patient Tobacco Use Status Never used Tobacco 01/24/24 08:32 e-Cigarette/Vaping Use Never Used 01/24/24 08:32 PHQ-9: PHQ-9 Score PHQ-9: Total score 9 01/24/24 08:40 Depression Screening Interpretation: Positive Depression Screening Follow-up: Existing condition and In treatment Thrive Assessment: Date of Thrive Assessment Date Thrive assessed 04/16/23 01/24/24 08:32 Const Other: General: no acute distress and well developed Nutritional Appearance: well nourished Orientation/consciousness: patient oriented x3 HENMT Head: Yes normocephalic and Yes atraumatic Eyes General: appearance normal, both eyes and all related structures Pupils: Equal, round and reactive pupils present EOM: EOMs intact bilaterally Resp Effort & Inspection: normal respiratory effort Auscultation: clear to auscultation bilaterally Cardio Rate: regular rate Rhythm: regular rhythm Heart sounds: S1 normal heart sound present, S2 normal heart sound present, no gallops, no murmurs and no rubs GI Palpation (GI): No Abdominal aortic bruit present, Soft to palpation, nontender, No hepatosplenomegaly present and No Rebound tenderness present Auscultation: normal bowel sounds General: Yes no CVA tenderness Back/Spine/Pelvis Back: no CVA tenderness Cervical Spine: cervical ROM normal and No Cervical spine tenderness Thoracic/Lumbar Spine: thoraco-lumbar ROM normal, No pain with thoraco-lumbar ROM, No thoracic spinal tenderness and No lumbar spinal tenderness Extrem General: Yes normal to inspection, No edema and No calf tenderness Skin General: warm and dry. Normal skin color. Normal skin turgor Neuro General: patient oriented x3, gait normal and no focal neuro deficit Cranial nerves: Yes Equal, round and reactive pupils present Cognition (Neuro): normal cognition Gait exam (Neuro): Normal gait present Sensory Exam: No Sensory deficit (Neuro) Psych Appearance: grossly normal Affect: normal affect Attitude: cooperative Thought process: Normal thought process present Coding Level of Care Code Est Pt Level 3 (99024) Diagnoses CHARLEEN (generalized anxiety disorder) F41.1 Major depression F32.9 ADHD (attention deficit hyperactivity disorder) F90.9 Insomnia, unspecified type G47.00 Insomnia type: unspecified Additional Codes CHARLEEN-7 Assessment Billing - CHARLEEN-7 Assessment Tool: CHARLEEN-7 Assessment [id number] ([id number]) Assessment & Plan Assessment & Plan (1) CHARLEEN (generalized anxiety disorder): Code(s): F41.1 - Generalized anxiety disorder Category: Medical Plan: Reports controlled anxiety and depressive symptoms Continue current treatment regimen Routine exercise encouraged Follow-up with [facility] outpatient psychiatry as planned Return in 3 months or sooner with symptoms or concerns Verbalized understanding and agreed with treatment plan (2) Major depression: Code(s): F32.9 - Major depressive disorder, single episode, unspecified Category: Medical Plan: Plan as above (3) ADHD (attention deficit hyperactivity disorder): Code(s): F90.9 - Attention-deficit hyperactivity disorder, unspecified type Category: Medical Plan: Plan as above (4) Insomnia: Code(s): G47.00 - Insomnia, unspecified Category: Medical Qualifiers: Insomnia type: unspecified Qualified Code(s): G47.00 - Insomnia, unspecified Plan: Plan as above
[2024-01-24 08:33] VITALS: BP 138/98; PULSE 69; RESP 16; TEMP 36.7; O2SAT 98; BMI 30.4
== END 2024-01-24 09:06 | disposition home or self-care (01) ==
PROVIDERS: PCP Nurse Practitioner Family; Visit Provider Nurse Practitioner Family
DX: F41.1 Generalized anxiety disorder (principal); F32.9 Major depressive disorder, single episode, unspecified; F90.9 Attention-deficit hyperactivity disorder, unspecified type; G47.00 Insomnia, unspecified

== ENCOUNTER → 2024-01-24 08:27 | Outpatient (BNVA) | payer OTHER, SELFPAY | PROVIDERS: PCP Nurse Practitioner Family; Visit Provider Nurse Practitioner Family | DX: F41.1 Generalized anxiety disorder (principal); F32.9 Major depressive disorder, single episode, unspecified; F90.9 Attention-deficit hyperactivity disorder, unspecified type; G47.00 Insomnia, unspecified | CPT/HCPCS: 96127; 99212 ==

== ENCOUNTER → 2024-01-31 12:49 | Outpatient (REF) | payer OTHER, SELFPAY ==
--- NOTE | 2024-01-31 12:53 | ECG_ITS ---
Test Reason : LONG-TERM DRUG USE Blood Pressure : / mmHG Vent. Rate : 071 BPM Atrial Rate : 071 BPM P-R Int : 150 ms QRS Dur : 088 ms QT Int : 378 ms P-R-T Axes : 056 058 032 degrees QTc Int : 410 ms Normal sinus rhythm Normal ECG When compared with ECG of 09-NOV-2023 07:42, No significant change was found Referred By: Jacquelyn Cleveland Electronically Signed By:Maximino Reyes
== END ==
LOC: HO.CARD 12:49
PROVIDERS: PCP Nurse Practitioner Family; Visit Provider Clinical Nurse Specialist Psychiatric/Mental Health
DX: Z79.899 Other long term (current) drug therapy (principal)
CPT/HCPCS: 93005

== ENCOUNTER → 2024-01-31 12:53 | Outpatient (BNV) | payer OTHER, SELFPAY | PROVIDERS: PCP Nurse Practitioner Family; Visit Provider Internal Medicine Cardiovascular Disease | DX: Z79.899 Other long term (current) drug therapy (principal) | CPT/HCPCS: 93010 ==

== ENCOUNTER 2024-05-03 07:47 | Day surgery (SDC) | payer OTHER, SELFPAY ==
--- NOTE | 2024-05-02 09:33 | P.CONAN_ITS ---
Documented by User: Sandy Shaver NP 05/02/24 09:33 HPI - Anesthesia Eval Consult details Narrative: 28yo M for Upper Endoscopy and Colonoscopy [facility] Active Problems Active Problems: All Active Problems Major depression (Acute) CHARLEEN (generalized anxiety disorder) (Acute) Long-term use of high-risk medication (Acute) Periodic limb movements of sleep (Acute) RLS (restless legs syndrome) (Acute) Erectile dysfunction (Acute) Sleep disturbance (Acute) Nasal polyps (Acute) Weakness (Acute) Difficulty sleeping (Acute) Anxiety (Acute) Depression (Acute) ADHD (attention deficit hyperactivity disorder) (Acute) Insomnia (Acute) Normal physical examination, routine (Acute) Daytime hypersomnia (Acute) CARLA (obstructive sleep apnea) (Acute) Osteoarthritis of right knee (Acute) Diarrhea (Acute) Normal physical exam (Acute) COVID-19 virus infection (Acute) HTN (hypertension) (Acute) Low testosterone in male (Acute) Hypertension due to drug (Acute) Elevated BP without diagnosis of hypertension (Acute) Morbidly obese (Acute) Small bowel obstruction (Acute) Crohn's disease (Acute) Abdominal pain (Acute) Right inguinal pain (Acute) Temporomandibular joint (TMJ) pain (Acute) Elevated blood pressure reading (Acute) Spondylosis of lumbosacral spine without myelopathy (Acute) Acquired genu valgum of both knees (Acute) Back pain (Acute) Attention and concentration deficit (Acute) Encounter for well adult exam with abnormal findings (Acute) Right testicular pain (Acute) BPV (benign positional vertigo) (Acute) Right-sided low back pain with sciatica (Acute) Past Medical History Medical History Anemia Crohn's disease ADHD (attention deficit hyperactivity disorder) 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 Mother Hypertension Maternal Grandfather Diabetes Stroke Other Anemia Family history of problems with anesthesia: No Surgical History Surgical History Hx of colonoscopy History of esophagogastroduodenoscopy (EGD) History of arthroscopy of both knees History of Problems with Anesthesia: No Social History Social History Household Members: Friend(s) Housing: Apartment Are you a primary healthcare account manager to a significant other at home: No Do you presently have visiting nurse or other home services: No Alcohol intake: never Patient Tobacco Use Status: Never used Tobacco e-Cigarette/Vaping Use: Never Used Second Hand Smoke Exposure: No Use of substances other than those prescribed or required for medical reasons: No Have you been hit, kicked, punched, or otherwise hurt by someone within the past year? If so, by whom?: No Are you DNR?: No Advance Directives: No Advance Directives Information Provided: Yes Recently lost weight without trying: No Nutrition Risks: No Nutritional Risk service: No Current occupational status: employed Current occupation: [employer], [employer] Cognitive needs: No Hearing needs: No Vision needs: No Meds Allergies Allergy/AdvReac Type Severity Reaction Status Date / Time penicillin V Allergy Intermediate rash Verified 01/24/24 08:32 Exam Height,Weight and Vital Signs: Height 6 ft 3 in Weight 108.862 kg Assessment and Plan Assessment Anesthesia Assessment: Chart Reviewed Final Anesthetic Review Family History of Problems with Anesthesia: No History of Problems with Anesthesia: No Documented by User: Vernell Beltrán MD 05/03/24 09:40 [facility] Past Medical History Medical History Anemia Crohn's disease ADHD (attention deficit hyperactivity disorder) 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 Mother Hypertension Maternal Grandfather Diabetes Stroke Other Anemia Surgical History Surgical History Hx of colonoscopy History of esophagogastroduodenoscopy (EGD) History of arthroscopy of both knees Social History Social History Household Members: Friend(s) Housing: Apartment Are you a primary healthcare account manager to a significant other at home: No Do you presently have visiting nurse or other home services: No Alcohol intake: never Patient Tobacco Use Status: Never used Tobacco e-Cigarette/Vaping Use: Never Used Second Hand Smoke Exposure: No Use of substances other than those prescribed or required for medical reasons: No Have you been hit, kicked, punched, or otherwise hurt by someone within the past year? If so, by whom?: No Are you DNR?: No Advance Directives: No Advance Directives Information Provided: Yes Recently lost weight without trying: No Nutrition Risks: No Nutritional Risk service: No Current occupational status: employed Current occupation: [employer], [employer] Cognitive needs: No Hearing needs: No Vision needs: No Meds Allergies Allergy/AdvReac Type Severity Reaction Status Date / Time penicillin V Allergy Intermediate rash Verified 01/24/24 08:32 Exam Airway Mallampati Class: III TM Dist: >3cm Neck ROM: Full Loose/Missing/Broken Teeth: No Heart: RRR Lungs: CTA Assessment and Plan Assessment Anesthesia Assessment: Anesthesia Plan Discussed Final Anesthetic Review NPO: Yes ASA Class: II Final Preanesthetic Review: Meds/Allgs Chart Reviewed, Consent Obtained/Reviewed and Anes Risks/Benef Reviewed Patient Risk: Low Procedure Risk: Intermediate Anesthetic Plan Anesthetic Plan: MAC: Disposition: Standard PACU
--- OUTSIDE RECORDS SUMMARY | 2024-05-03 07:51 | XMS_ITS | Data Portability ---
Author Organization [place] - [facility], Allergy Address [address] [address] Assessment Encounter Date Assessment Date Assessment LastModified by Organization Details LastModified Time 12/06/2023 12/06/2023 28-year-old male presents for evaluation of nasal congestion. Exam today demonstrates turbinate hypertrophy and mild septal deviation to the left. No obvious polyps were noted. Recommended CT sinus and allergy testing for further evaluation. He will follow-up to discuss the results. Not available 12/06/2023 14:06:17 Plan of Treatment Reminders Order Date Submit Date Provider Last Modified By Organization Details Last Modified Time Details Appointments Establish ed 15 2024 11:15A M TATIANA DOLAN PA-C Not available Not available Not available Lab None recorded. Referral None recorded. Procedures allergy testing, skin prick (PROC) 2023 024 [email or web address] Not available 12/27/2023 15:10:30 intraderm al allergy skin testing (PROC) 2023 024 [email or web address] Not available 12/27/2023 15:10:40 pulmonary function test procedure (PROC) 2023 024 [email or web address] Not available 12/27/2023 15:10:48 pulse oximetry (PROC) 2023 024 [email or web address] Not available 12/27/2023 15:15:49 Surgeries None recorded. Imaging CT, sinuses, w/o contrast 2023 024 SHAHNAZ [facility], [address] [place] [address] [address], [place], [address], 01/31/2024 23:08:27 Medication Orders None recorded. Patient TargetsNo targets recorded. Patient Instructions Encounter Date Encounter Id Patient Instructions Last Modified By Organization Details Last Modified Time 12/27/2023 [id number] Nursing Documentation for Allergy Testing: Ordering Provider {{Dr. Uli Galarza* Dr. Harley Bland}} Weight:lbs:??kg: ?? PFT {{Yes* no}} With Bronchodilator {{Yes no*}} Dr. sherwood needed to proceed with allergy testing? {{Yes* No}} {{Dr. Uli Bland*}} ok'd testing {{Yes* No Pulmonar y Clearance PCP Clearance RAST}}Hi story of Asthma:{{Yes No*}} Asthma Meds: ??Last used:?? Asthma exacerbated by: ?? Chance that : {{Yes No Not Sure N/A*}} Fear of needles: {{Yes No*}} Regular medications reviewed in Computer: {{Yes* No}} Medication allergies: {{Reviewed* NKDA}} Antihistamine use: {{Yes No*}} Medications used: ?? Food Allergies: ?? none Any foods make your mouth feeling itchy: {{Yes No*}} If yes: ?? History of severe reaction where had to go to ER? {{Yes No*}} If yes details: ?? Type of heat in home: {{Baseboard* [employer] other }} Pets: {{Yes No*}} If yes: ?? Smoker: {{Yes Current Never* For yeny}} If former smoker-how much ?? / day for how long ?? When quit ?? years ago Smoking now-how much ?? /day for how long ?? 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 having: {{Congestion Post Nasal Drip Headache* Run ny Nose Cough Other}} If other: ??runny nose, can't beath, head pressure, watery eyes, itchy Frequency {{Seasonally Year Round*}} Spirometry Contraindications: Heart attack in the last 3 months: {{Yes No*}} Major surgery in last 3 months: {{Yes No*}} Detached retina(serious eye issues) in last 2 months: {{Yes No*}} Hospitilization in last month: {{Yes No*}} Proceed with PFT {{Yes* No}} approval needed: {{Yes* No}} Nursing Notes: Pt tolerated test well {{Yes* No}} Benadryl cream to test sites {{Yes* No}} Patient became syncopal-placed in supine position {{Yes No*}} Large reactions to MQT, reschedule IDT for a different date {{Yes* No}} Other: ?? Written by: {{ACRLOS Song, ANA LILIA Waddell*}} [email or web address] Not available 12/27/2023 15:09:39 Reason for Referral None Reported. Results Created Date Observation Date Name Description Value Unit Range Abnormal Flag Note LastModifiedBy Organization Detail LastModifiedTime 12/01/19 24 07/15/2022 imagi ng/di agnos tic resul t No observ ation record ed. [email or web address] Not Available 07:07:48 01/31/2001/31/2024 CT, sinus es, w/o contr ast No observ ation record ed. [email or web address] [address], [place], [address], 02/01/2024 08:28:32 Result Notes None recorded. Problems Name Problem SNOMED Code Status Onset Date Resolution Date Notes Provider Name and Address Organization Details Recorded Time Closed fracture of nasal bones 16466366 Active 2022 Fracture of nasal bones, initial encounter for closed fracture; Note: Date Diagnosed : 07/21/2022 10:06 AM (S02.2XXA ) Not Available [facility] 4 02:14:15 Impacted cerumen in right ear 93136583189 87215 Active 2016 Impacted cerumen, right ear; Note: Date Diagnosed : 04/29/2016 4:34 PM (H61.21) Not Available [facility] 4 02:13:30 Allergic rhinitis caused by pollen 89147858 Active 2019 Allergy NOS due to pollen; Note: Date Diagnosed : 11/16/2019 11:51 AM (J30.1) Not Available [facility] 4 02:13:08 Impacted cerumen of bilateral ears 14975107216 95440 Active 2023 TATIANA DOLAN PA-C [address] [facility], [place], [address] , [facility] - [facility] [place] 4 14:04:01 Nasal congestio n 85581735 Active 2023 TATIANA DOLAN PA-C [address] [facility], [facility] [place], [address] , [facility] - [facility] [place] 4 14:05:26 Allergic rhinitis 25348133 Active 2023 TATIANA DOLAN PA-C [address] [facility], [place], [address] , [facility] - [facility] [place] [place] 4 14:05:34 Seasonal allergic rhinitis 112115948 Active 2023 TATINAA DOLAN PA-C [address] [facility], [place], [address] , [facility] - [facility] [place] 4 14:05:34 Non-aller gic rhinitis 89353873590 1 Active 2023 TATIANA DOLAN PA-C [address] [facility] [place] [facility], [place], [address] , [facility] - [facility] [place] [place] 4 14:05:34 Problem Notes None recorded. Procedures Surgical History Date Name Laterality Status Provider Name and Address Organization Details Recorded Time 01/03/20 24 Allergy Testing-Full completed ANA LILIA STEPHEN [address], [place], [address], [facility] - [facility] [place] [place] 01/03/2024 11:15:19 12/27/19 24 Allergy Testing Modified- Quantitative Testing (MQT) Only completed RYLEY WADDELL, RMA [address] [place], [place], [address], [place] - [facility] 12/27/2023 15:09:31 Imaging Results Imaging Date Name Status LastModified by [facility] Details LastModified Time 07/15/2022 imaging/diagn ostic result completed [email or web address] Information not available 12/01/2023 07:07:48 01/31/2024 CT, sinuses, w/o contrast completed ken [facility] [address], [place], [address], 02/01/2024 08:28:32 Procedure Notes None recorded. Medical Equipment None Reported. Allergies Allergen ID Allergen Name Allergen Category Reaction Reaction Severity Criticality Documentation Date Start Date Code Code System Note Provider Name and Address Organization Details Recorded Time penicilli n V potassium medicatio n other Not available Not available 08/24/202365738 5 RxNorm React ion: unkno wn, unspe cifie d;; Not Available [facility] 00:50:23 Medications Name Sig Start Date Stop Date Status Note LastModified by Organization Details LastModified Time bupropion HCl SR 150 mg tablet,12 hr sustained -release TAKE 1 TABLET BY MOUTH EVERY DAY IN THE MORNING 12/26 completed Not Available Not Available Not Available clonidine HCl 0.1 mg tablet TAKE 1 TABLET BY MOUTH EVERYDAY AT BEDTIME 12/26 completed Not Available Not Available Not Available prednison e 10 mg tablet 12/26 completed Medicati on ID: [id number] D uration Value: 10 Brand Name: predniso ne Send Method: E-Prescr ibed Sub s Allowed: subs OK Speci al Instruct ion: TAKE 1 TABLET BY MOUTH EVERY DAY FOR 10 DAYS Med icationG enericNa me: predniso ne Not Available Not Available Not Available loperamid e 2 mg capsule PLEASE SEE ATTACHED FOR DETAILED DIRECTIO NS 12/26 completed Not Available Not Available Not Available sucralfat e 100 mg/mL oral suspensio n SWISH IN MOUTH AND SWALLOW 10 ML BY MOUTH USE AFTER FOOD/DRI NK active Not Available Not Available No t Available omeprazol e 40 mg capsule,d elayed release TAKE 1 CAPSULE BY MOUTH EVERY DAY active Not Available Not Available No t Available acetamino phen 500 mg tablet TAKE 1 TABLET BY MOUTH EVERY 6 HOURS NEEDED FOR PAIN OR FEVER active Not Available Not Available No t Available hyoscyami ne sulfate 0.125 mg tablet TAKE 1 TABLET BY MOUTH FOUR TIMES A DAY NEEDED FOR DYSPEPSI A active Not Available Not Available No t Available hydroxyzi ne HCl 25 mg tablet TAKE 1 TABLET BY MOUTH TWICE A DAY NEEDED FOR ANXIETY 12/26 completed Not Available Not Available Not Available gabapenti n 100 mg capsule TAKE 1-3 CAPS BY MOUTH AT BEDTIME active Not Available Not Available No t Available ibuprofen 600 mg tablet TAKE 1 TABLET BY MOUTH EVERY 8 HOURS NEEDED FOR PAIN active Not Available Not Available No t Available fluticaso ne propionat e 50 mcg/actua tion nasal spray,verito pension PUT 1 SPRAY INTRANAS ALLY EVERY 12 HOURS ADMINIST ER INTO EACH NOSTRIL *NC OTC* active Not Available Not Available No t Available naproxen 500 mg tablet TAKE 1 TABLET BY MOUTH 2 TIMES A DAY NEEDED FOR PAIN FOR 10 DAYS 12/26 completed Not Available Not Available Not Available escitalop alfred 10 mg tablet TAKE 1 TABLET BY MOUTH EVERY DAY IN THE MORNING active Not Available Not Available No t Available Zackery Cabello Crohn's-U lc Colitis-H id Sup Starter 40 mg/0.8 mL subcut kit 11/15 completed Medicati on ID: [id number] D uration Value: 28 Reason: () Brand Name: Zackery Cabello Crohns-U C-HS Start Se nd Method: E-Prescr ibed Sub s Allowed: subs OK Medic ationGen ericName : Billyira Pen Crohns-U C-HS Start Not Available Not Available Not Available lisdexamf etamine 30 mg capsule TAKE 1 CAPSULE BY MOUTH EVERY DAY IN THE MORNING active Not Available Not Available No t Available diclofena c 1 % topical gel APPLY 2 GRAMS (TOPICAL ) 4 TIMES PER DAY FOR 10 DAYS active Not Available Not Available No t Available Gavilax 17 gram/dose oral powder MIX 17G (1 CAPFUL) IN 8 OUNCES OF LIQUID AND DRINK TWICE DAILY 12/26 completed Not Available Not Available Not Available sodium,po tassium,m ag sulfates 17.5 gram-3.13 gram-1.6 gram oral soln DILUTE DRINK 1/2 AT 6-8 PM AND HALF AT 11 PM- 1AM active Not Available Not Available No t Available clonidine HCl ER 0.1 mg tablet,ex tended release,1 2 hr TAKE 1 TABLET BY MOUTH EVERYDAY AT BEDTIME active Not Available Not Available No t Available Entyvio 300 mg intraveno us solution 12/26 completed Not Available Not Available Not Available lisdexamf etamine 10 mg capsule TAKE 1 CAPSULE BY MOUTH EVERY MORNING 12/26 completed Not Available Not Available Not Available Vitals Date Recorded Body height Body mass index (BMI) Body weight Provider Name and Address Organization Details Last Updated DateTime 12/06/2023 190.5 cm 31.2 kg/m2 335919.09 g Violet Mccann [facility] 12/06/2023 13:48:51 Date Recorded Body height Body mass index (BMI) Body weight Oxygen saturation Oxygen saturation in Arterial blood by Pulse oximetry Heart rate Systolic blood pressure Diastolic blood pressure Provider Name and Address Organization Details Last Updated DateTime 190.5 cm 30 kg/m2 441389. 17 g 99 % 99 % 63 /min 121 mm[Hg] 83 mm[Hg] ANA LILIA STEPHEN [address] [place] [address], [address] [place] [address] [facility] 14:29:13 Social History None recorded. Functional Status None recorded. Mental Status None recorded. Family History Nothing Reported. Medical History No medical history recorded. Past Encounters Encounter ID Performer Location Encounter Start Date Encounter Closed Date Diagnosis/Indication Diagnosis SNOMED-CT Code Diagnosis ICD10 Code Diagnosis Note [id number] CARO DUNCAN MD [facility] [address] [address] 12/06/2023 13:31:09 12/06/2023 13:55:51 Nasal congestion 21472991 R09.81 [id number] ANA LILIA STEPHEN Allergy [address] [place] [address] [address] 12/27/2023 14:12:56 12/27/2023 15:26:25 Allergic rhinitis 25836901 J30.9 [id number] ANA LILIA STEPHEN Allergy 100 [facility] [address] [place] [address] 01/03/2024 10:16:10 01/03/2024 10:17:15 Allergic rhinitis 12437804 J30.9 Health Concerns Section Related Observation LastModified by Organization Detai ls LastModified Time None Recorded Concern Status LastModified by Organization Details LastModified Time None Recorded Advance Directives Directive None Recorded Payers Encounter Date Sequence Insurance Name Policy Number Policy En[place]orado Covered Member ID Enamorado Member ID Guarantor Name 12/06/2023 1 [facility] [employer] (O) [id number] Tyler L Mccann [id number] Tyler L Mccann 12/27/2023 1 [facility] [employer] (HMO) [id number] Tyler L Mccann [id number] Tyler L Mccann 01/03/2024 1 [facility] [id number] Tyler L Mccann [id number] Tyler L Mccann Notes Date Note Type Note Provider Name and Address Organization Details Recorded Time 12/06/2023 text/html 28-year-old male presents for evaluation of nasal congestion. He was last evaluated for this in November 2019 and nasal endoscopy demonstrated turbinate hypertrophy but no evidence of polyps. He was referred for concern about nasal polyps. He has been using Flonase but continues to have nasal congestion, sneezing, rhinorrhea, decreased sense of smell, and facial pressure. No prior allergy testing. Has been using Flonase consistently for 2 months without improvement. He is unsure if he has history of sinus infections. CARO DUNCAN MD [address] [facility],[address], [address], [facility] - [facility] 12/07/2023 16:32:07
[2024-05-03 08:31] VITALS: BMI 29.4
[2024-05-03 08:35] VITALS: BP 129/76; PULSE 66; RESP 16; TEMP 36.8; O2SAT 100
[2024-05-03] MEDS: Lactated Ringers 1,000 ML 100 ML IVCONT (09:13)
--- NOTE | 2024-05-03 09:14 | MHC.SHP ---
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 Scoliosis Eczema Arthritis Depression Acute Crohn's disease) History of Previous Operations: Relevant previous surgery/procedure and date(s) (Hx of colonoscopy History of esophagogastroduodenoscopy (EGD) History of arthroscopy of both knees) Allergies: Allergies Allergy/AdvReac Type Severity Reaction Status Date / Time penicillin V Allergy Intermediate rash Verified 01/24/24 08:32 Review of Systems Sugical H&P ROS: Negative: Constitution, Cardiovascular, Respiratory, Neurological, Psychiatric, Hem-Onc, Allergic/Immunologic, Gastrointestinal, Genitourinary, Musculoskeletal, Integumentary, Endocrine and Eyes/Ears/Nose/Throat Exam Surgical H&P Exam: Normal: HEENT, Normal: Heart, Normal: Lungs, Normal: Extremities, Normal: Abdomen, Normal: Skin and Normal: Neurological Plan Diagnosis/Plan: Unchanged I have reviewed the history and physical and performed a pertinent physical examination on my patient. No changes have occurred unless specified. Time Spent With Patient Time: Total time managing care of this patient today ____ minutes.
--- NOTE | 2024-05-03 09:50 | HO.OPN-COLON ---
Colonoscopy Operative Note Operative Note Date of Service: 05/03/24 Narrative: Operative Information Procedure Description: EGD, Colonoscopy Indication: hx of IBD Anesthesia: MAC FLEXIBLE TRANSORAL UPPER GASTROINTESTINAL ENDOSCOPY AND COLONOSCOPY PROCEDURE NOTE UPPER ENDOSCOPY Consent: Indications for the procedure and potential complications of bleeding, perforation, reaction to medications and missed diagnosis were discussed with the patient and informed consent was obtained. Instrument: Olympus GIF H 190 J mid size upper endoscope Monitoring: Vital signs and clinical assessment, continuous EKG monitoring, Pulse oximetry, Carbon Dioxide monitoring and blood pressure monitoring were done throughout the procedure. Procedure: The patient was placed in the left lateral decubitis position and pre-procedure medications were administered and a bite block was placed. The endoscope was inserted into the mouth and advanced under direct vision to the third part of duodenum. A careful inspection was made as the upper endoscope was withdrawn including a retroflexed examination of the proximal stomach; Findings and interventions are described below. Findings: Larynx:normal Esophagus: GE junction at 40 cm, diaphragm hiatus at 40 cm, mild esophagitis, bx taken Stomach: Normal mucosa. Biopsies were obtained. Grade 2 flap valve on retroflexed examination of the cardia. Duodenum: Normal bulb and descending duodenum, bx taken Intervention: Biopsies as noted above, COLONOSCOPY Instrument: Olympus variable stiffness pediatric scope 190L Colonoscopy Monitoring: Vital signs and clinical assessment, continuous EKG monitoring, Pulse oximetry, Carbon Dioxide monitoring and blood pressure monitoring were done throughout the procedure. Colon withdrawal time was 10 minutes. Procedure: The patient was placed in the left lateral decubitis position and pre-procedure medications were administered. After a digital rectal examination of the ano-rectum, the video colonoscope was inserted into the rectum and advanced through the colon to the cecum/TI. The colonoscope was slowly withdrawn in a retrograde panoramic fashion and the colon mucosa was carefully examined including a retroflexed view of the rectum. Findings and interventions are described below. Procedure Difficulty:moderate Findings: Terminal Ileum- patchy erythema with few erosions seen, bx taken bx taken from right, left and rectum areas Cecum:normal Ascending Colon: normal Transverse Colon -normal Descending Colon:normal Sigmoid Colon: normal Rectum: Retroflexion with medium sized internal hemorrhoids, grade I Anorectum - normal Colon preparation: [place] Bowel Preparation Scale Right colon; 2 Transverse colon: 3 Left colon; 3 (0 = Unprepared colon segment with mucosa not seen due to solid stool that cannot be cleared. 1 = Portion of mucosa of the colon segment seen, but other areas of the colon segment not well seen due to staining, residual stool and/or opaque liquid. 2 = Minor amount of residual staining, small fragments of stool and/or opaque liquid, but mucosa of colon segment seen well. 3 = Entire mucosa of colon segment seen well with no residual staining, small fragments of stool or opaque liquid) Impression and Post Procedure Diagnosis: Endoscopy Findings: esophagitis Colonoscopy Findings: mild ileitis internal hemorrhoids Plan: Await Pathology results Repeat Colonoscopy in 1-2 years or earlier if clinically indicated High fiber diet leaflet avoid straining at stool, epsom salts and sitz bath, anusol supps or cream consider restarting biologic Above findings were reviewed with the patient and relevant handouts were provided if indicated.
[2024-05-03 09:55] VITALS: BP 116/74; PULSE 90; RESP 18; TEMP 36.2; O2SAT 98
[2024-05-03 10:05] VITALS: BP 120/81; PULSE 72; RESP 18; TEMP 36.1; O2SAT 98
== END 2024-05-03 10:41 | disposition home or self-care (01) ==
PROVIDERS: PCP Nurse Practitioner Family; Visit Provider Internal Medicine Gastroenterology
PROC: (CPT 45380; principal; 2024-05-03 09:20)
DX: K52.9 Noninfective gastroenteritis and colitis, unspecified (principal); K64.0 First degree hemorrhoids; K50.90 Crohn's disease, unspecified, without complications; K20.90 Esophagitis, unspecified without bleeding; I10 Essential (primary) hypertension; G47.33 Obstructive sleep apnea (adult) (pediatric); Z79.899 Other long term (current) drug therapy
CPT/HCPCS: 45380; 43239; 88305; 88313; 88342; J2250; J2704

== ENCOUNTER → 2024-05-03 07:47 | Outpatient (BNV) | payer OTHER, SELFPAY | PROVIDERS: PCP Nurse Practitioner Family; Visit Provider Internal Medicine Gastroenterology | DX: K52.9 Noninfective gastroenteritis and colitis, unspecified (principal); K64.0 First degree hemorrhoids; K20.90 Esophagitis, unspecified without bleeding | CPT/HCPCS: 43239; 45380 ==

== ENCOUNTER 2024-05-22 15:13 | Outpatient (AMB) | payer OTHER, SELFPAY ==
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
[2024-05-22 15:22] VITALS: BP 124/69; PULSE 82; RESP 16; TEMP 36.8; O2SAT 98; BMI 30.8
== END 2024-05-22 15:47 | disposition home or self-care (01) ==
PROVIDERS: PCP Nurse Practitioner Family; Visit Provider Nurse Practitioner Family
DX: F32.9 Major depressive disorder, single episode, unspecified (principal); F41.1 Generalized anxiety disorder; F90.9 Attention-deficit hyperactivity disorder, unspecified type; G47.9 Sleep disorder, unspecified; Z00.00 Encounter for general adult medical examination without abnormal findings

== ENCOUNTER → 2024-05-22 15:13 | Outpatient (BNVA) | payer OTHER, SELFPAY | PROVIDERS: PCP Nurse Practitioner Family; Visit Provider Nurse Practitioner Family | DX: F32.9 Major depressive disorder, single episode, unspecified (principal); F41.1 Generalized anxiety disorder; F90.9 Attention-deficit hyperactivity disorder, unspecified type; G47.9 Sleep disorder, unspecified | CPT/HCPCS: 96127; 99212 ==

== ENCOUNTER 2024-06-19 11:22 | Outpatient (AMB) | payer OTHER, SELFPAY ==
--- NOTE | 2024-06-19 11:36 | MHC.OFFVIS ---
Vital Signs 06/19/24 11:40 Height 6 ft 3 in Weight 248 lb BMI 31.0 BP 133/61 Blood Pressure Location Lt brachial Position Sitting Pulse 79 Intake Visit Reasons: 6 month follow up Intake Note: Patient 6 month follow up Patient denies any GI issues for today visit. Gis Technician Required: No Accompanied by: Self / Same As Patient Allergies penicillin V Allergy (Intermediate, Verified 06/19/24 11:36) rash HPI HPI 6 month follow up: Details: 28 yr old m w hx of crohns and non compliance being seen for f/u RECAP: Initially diagnosed with crohsn aged 17 I saw patient as inpatient consult 02/2021, had also seen him at [facility] where I use to work Pain was sudden onset in the mid abdomen and sharp and stabbing in nature. It was at least 5/10 in severity with no relieving or exacerbating factors. He had no nausea or vomiting, had been passing normal colored stool without blood or melena. Not been using nsaids. No fever or chills, appetite had been good. he is not on any medication for crohns, had been on humira in past but stopped due to intolerance and was lost to follow up with GI thereafter, controlling his disease with diet. Labs significant for WBC count of 13.9, ALT of 49, CRP mildly raised CT with few mildly prominent fecalized small bowel loops in right lower quadrant with adjacent mesenteric stranding and small amount of free fluid suspicious for sequelae of small-bowel obstruction He was commenced on antibiotics and fluids I saw him again and commenced on entyvio he went to ED 11/2021--Ct scan with normal GI tract, no acute inflammation Stool PCR was pos for E coli He then missed the entyvio dose October 2021, and prior dose was 08/2021 so he was restarted on entyvio with re induction dosing MRe: 01/31-- normal EGD/colo: 05/04--internal hemorrhoids and erosive esophagitis --neg inflammation he did go to the Ed due to sharp upper abd pains worse with food since last few days, no diarrhe,a no vomiting or nausea, Ct was done with some degen changes in spine and moderate constipation, to my read also duodenal, gastric thickening labs were nml colonoscopy: 05/06 Endoscopy Findings: esophagitis Colonoscopy Findings: mild ileitis internal hemorrhoids Path: active reflux type changes in esophagus microgranulomas seen in ileum and colon INTERIM: Restarted on entyvio he feels better since then bowels are normal, no blood or diarrhea he is taking carafate he stopped PPI because he thought is was not helpful EXAM: GENERAL: The patient is well developed and nontoxic. VITAL SIGNS:see workflow HEENT: Nonicteric sclerae, PERRLA, EOMI. Oropharynx clear. Moist mucous membranes. Conjunctivae appear well perfused. No thyroid mass. CHEST: Chest wall is nontender. HEART: Regular rate and rhythm without murmurs. LUNGS: Clear to auscultation bilaterally. ABDOMEN: Soft, positive bowel sounds, nontender, no organomegaly.no flank tenderness SKIN: No rash, no excessive bruising, petechiae, or purpura. NEUROLOGIC: Cranial nerves II-XII intact without motor/sensory deficit. Psych: normal affect A/P: 1/ Crohns disease, stopped entyvio by himself--now back on it 2/ esophagitis grade D--better on last EGD PLAN: 1/ cont with carafate, low threshold to restart PPI 2/ repeat EGD and colo in 1-2 yrs [facility] Medical History Anemia Crohn's disease ADHD (attention deficit hyperactivity disorder) 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 Mother Hypertension Maternal Grandfather Diabetes Stroke Other Anemia Social History Household Members: Friend(s) Housing: Apartment Are you a primary director career to a significant other at home: No Do you presently have visiting nurse or other home services: No Alcohol intake: never Patient Tobacco Use Status: Never used Tobacco e-Cigarette/Vaping Use: Never Used Second Hand Smoke Exposure: No service: No Current occupational status: employed Current occupation: [employer] Cognitive needs: No Hearing needs: No Vision needs: No Physical Exam Vital Signs: Last Vital Signs Pulse 79 06/19/24 11:40 BP 133/61 06/19/24 11:40 BMI result Body Mass Index 31.0 Assessment & Plan Assessment & Plan (1) Crohn's disease: Code(s): K50.90 - Crohn's disease, unspecified, without complications Category: Medical Plan: as above Orders: Orders Comprehensive Met. Panel Today K50.90 - Crohn's disease, unspecified, without complications, K75.81 - Nonalcoholic steatohepatitis (OCHOA) C Reactive Protein Today K50.90 - Crohn's disease, unspecified, without complications Lactoferrin, Fecal, Quant. Today K50.90 - Crohn's disease, unspecified, without complications, K51.50 - Left sided colitis without complications Complete Blood Count Auto Diff Today K50.90 - Crohn's disease, unspecified, without complications Coding Level of Care Code Est Pt Level 3 (31227) Diagnoses Crohn's disease K50.90
[2024-06-19 11:40] VITALS: BP 133/61; PULSE 79; BMI 31.0
== END 2024-06-19 11:51 | disposition home or self-care (01) ==
PROVIDERS: PCP Nurse Practitioner Family; Visit Provider Internal Medicine Gastroenterology
DX: K50.90 Crohn's disease, unspecified, without complications (principal)
CPT/HCPCS: 99213

== ENCOUNTER → 2024-06-19 11:22 | Outpatient (BNVA) | payer OTHER, SELFPAY | PROVIDERS: PCP Nurse Practitioner Family; Visit Provider Internal Medicine Gastroenterology | DX: K50.90 Crohn's disease, unspecified, without complications (principal) | CPT/HCPCS: 99212 ==

== ENCOUNTER 2024-06-20 09:39 | Outpatient (AMB) | payer OTHER, SELFPAY ==
--- NOTE | 2024-06-20 10:14 | AM.OFFWIN_ITS ---
Intake Vital Signs 06/20/24 10:15 Height 6 ft 3 in Weight 256 lb BMI 32.0 BP 110/74 Blood Pressure Location Rt brachial Position Sitting Pulse 70 Pulse Source Pulse Oximeter Pulse Oximetry (%) 98 Oxygen Delivery Method Room Air Intake Visit Reasons: EP-lower back pain, b/l knee pain Intake Note: Patient here for lower back pain and bilat knee pain. Patient Tobacco Use Status: Never used Tobacco Allergies penicillin V Allergy (Intermediate, Verified 06/20/24 10:15) rash Do you need a note to return to daycare/school/sports/work: Yes HPI HPI Comments History of Present Illness Details History of Present Illness - The patient is a 28-year-old male pres enting with chronic low back pain with shooting pain down both legs. - Reports onset of low back pain approxi mately one year ago, described as sharp shooting pain radiating down both buttocks and into the legs, reaching the feet. - Pain is currently affecting sleep, sug gesting increased severity. - Physical therapy previously provided t ransient relief, with exercises prescribed for home use; however, pain resumes after discontinuation of therapy. patient states he was given exercises to do at home but he lost the paper and stopped doing them and now his pain is back. - No acute injury was identified as a ca use; management has included naproxen when tolerable. - Notably, the patient also has Crohn's disease, influencing treatment options due to potential gastrointestinal implications of certain analgesics. Physical Exam General: Cooperative, healthy appearing, comfortable, no acute distress and well developed Orientation: Patient oriented x3 Limitations: Pain in lower back and both knees Head: Normal to inspection Ears: Hearing grossly normal bilaterally Nose: Normal external nose present Face and sinus: Normal facial exam Eyes: Appearance normal, both eyes and all related structures Neck: Normal visual inspection and Yes full ROM Respiratory: Normal respiratory effort and able to speak in complete sentences. Clear to auscultation bilaterally Cardiovascular: Regular rate and rhythm. Normal S1 and S2 Skin: No rashes or lesions noted Neuro: Patient oriented x3 Extremities: Normal to inspection [facility] Medical History Anemia Crohn's disease ADHD (attention deficit hyperactivity disorder) 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 Mother Hypertension Maternal Grandfather Diabetes Stroke Other Anemia Social History Household Members: Friend(s) Housing: Apartment Are you a primary post acute care nurse practitioner to a significant other at home: No Do you presently have visiting nurse or other home services: No Alcohol intake: never Patient Tobacco Use Status: Never used Tobacco e-Cigarette/Vaping Use: Never Used Second Hand Smoke Exposure: No service: No Current occupational status: employed Current occupation: [employer], [employer] Cognitive needs: No Hearing needs: No Vision needs: No Review of Systems Const All systems reviewed & are unremarkable except as noted in HPI and below Physical Exam Vital Signs: Last Vital Signs Pulse 70 06/20/24 10:15 BP 110/74 06/20/24 10:15 Pulse Ox 98 06/20/24 10:15 Oxygen Delivery Method Room Air 06/20/24 10:15 BMI result Body Mass Index 32.0 Back/Spine/Pelvis Cervical Spine: No Cervical spine tenderness Thoracic/Lumbar Spine: paraspinal muscle tenderness, No thoracic spinal tenderness, No lumbar spinal tenderness and straight leg raise positive (bilat) Assessment & Plan Assessment & Plan (1) Low back pain due to bilateral sciatica: Code(s): M54.41 - Lumbago with sciatica, right side; M54.42 - Lumbago with sciatica, left side Plan: Plan The plan for managing the patient's chronic low back pain with sciatica includes initiating a five-day course of prednisone at 40 mg daily to reduce muscle inflammation around the sciatic nerve. After completing prednisone, pain management will transition to naproxen, taking into account the patient's Crohn's disease. It was advised to avoid simultaneous use of naproxen and prednisone to prevent gastrointestinal complications. I also recommended resuming physical therapy to address and maintain pain management strategies, taking care to align physical therapy sessions post- prednisone completion. An evaluation has been sent to a physical therapy facility to manage scheduling. The discussion highlighted the need for careful use of NSAIDs due to the patient's Crohn?s disease and the potential risk it poses for gastrointestinal issues. Patient was informed and verbally consented to the use of an ambient scribe for clinic note documentation during this visit. Orders: Orders PT Evaluation and Treatment Today M54.41 - Lumbago with sciatica, right side, M54.42 - Lumbago with sciatica, left side Medications: New prednisone 40 mg (2 x 20 mg) PO QAM 10 tabs 0RF Coding Level of Care Code Est Pt Level 3 (91650) Diagnoses Low back pain due to bilateral sciatica M54.41; M54.42
[2024-06-20 10:15] VITALS: BP 110/74; PULSE 70; O2SAT 98; BMI 32.0
--- OUTSIDE RECORDS SUMMARY | 2024-06-20 10:55 | XMS_ITS | Data Portability ---
Author Organization [place] - [facility], Allergy Address [address] [address] Care Team Providers Care Charger Name Role Phone YARIEL PANDEY Primary Care Provider [phone] YARIEL VIZCARRA Primary Care Provider [phone] Assessment Encounter Date Assessment Date Assessment LastModified by Organization Details LastModified Time 12/06/2023 12/06/2023 28-year-old male presents for evaluation of nasal congestion. Exam today demonstrates turbinate hypertrophy and mild septal deviation to the left. No obvious polyps were noted. Recommended CT sinus and allergy testing for further evaluation. He will follow-up to discuss the results. blessing Not available 12/06/2023 14:06:17 05/29/2024 05/29/2024 28-year-old male presents for review of allergy testing and CT sinus. Exam today demonstrates turbinate hypertrophy and mild septal deviation to the left. No obvious polyps were noted. Allergy testing demonstrated moderate to severe reactions to trees, weeds, molds, grasses, dust mite, cat, and dog. CT sinus 01/31/2024 demonstrated small bilateral mucous retention cyst in the maxillary sinus and mild left sided septal deviation, but no evidence of sinusitis. We discussed proceeding with either SLIT or SCIT. He would like to proceed with SCIT. Risks were discussed as outlined below. I will send an EpiPen to his pharmacy. Also recommended trial of Azelastine. He will follow up in 6 months for reevaluation. Patient with concerns about hearing loss. Otologic exam is unremarkable. Audiometric testing demonstrated normal hearing bilaterally. Immunotherapy - Sublingual We discussed the role of immunotherapy. I explained that this involves the introduction of increasingly graduated dosages of the appropriate allergens by sublingual immunotherapy to facilitate tolerance. I explained about the likelihood of improvement usually within a three to six month time period provided that the patient is compliant with therapy. We spoke about the duration of therapy, which typically lasts from three to five years though at times can be indefinite. We also discussed the risk of anaphylaxis with sublingual immunotherapy. Immunotherapy - Subcutaneous We also discussed the role of immunotherapy. I explained that this is instituted for the most significant of allergies and involves the introduction of increasingly graduated dosages of the appropriate allergens by subcutaneous injection to facilitate tolerance. I explained about the likelihood of improvement usually within a three to six month time period provided that the patient is compliant with therapy. We spoke about the duration of therapy, which typically lasts from three to five years though at times can be indefinite. We also discussed the risk of anaphylaxis with this. blessing Not available 05/29/2024 12:35:44 Plan of Treatment Reminders Order Date Submit Date Provider Last Modified By Organization Details Last Modified Time Details Appointments Allergy new injection 2024 03:30P M [facility] Not available Not available Not available Establish ed- Allergy f-up 6mon 2024 10:30A M TATIANA DOLAN PA-C Not available Not available Not available Lab None recorded. Referral None recorded. Procedures allergen immunothe rapy; multiple injection s (PROC) 2024 025 [email or web address] Not available 06/06/2024 12:50:31 allergy testing, skin prick (PROC) 2023 024 [email or web address] Not available 12/27/2023 15:10:30 intraderm al allergy skin testing (PROC) 2023 024 [email or web address] Not available 12/27/2023 15:10:40 pulmonary function test procedure (PROC) 2023 024 [email or web address] Not available 12/27/2023 15:10:48 pulse oximetry (PROC) 2023 024 [email or web address] Not available 12/27/2023 15:15:49 Surgeries None recorded. Imaging CT, sinuses, w/o contrast 2023 024 [place] [facility], [address] [facility], [address], [place], [address], 01/31/2024 23:08:27 Medication Orders epinephri ne 0.3 mg/0.3 mL injection , auto-inje ctor [address] [id number], [address] [place], [address], 05/29/2024 12:32:14 azelastin e 137 mcg (0.1 %) nasal spray [address] [id number], [address] [place], [address], 05/29/2024 12:34:07 Patient TargetsNo targets recorded. Patient Instructions Encounter Date Encounter Id Patient Instructions Last Modified By Organization Details Last Modified Time 12/27/2023 [id number] Nursing Documentation for Allergy Testing: Ordering Provider {{Dr. Uli Galarza* Dr. Harley Bunn}} Weight:lbs:? ? ?kg: ? ? ? PFT {{Yes* no}} With Bronchodilator {{Yes no*}} approval needed to proceed with allergy testing? {{Yes* No}} {{Dr. Uli Bunn*}} ok'd testing {{Yes* No Pulmonar y Clearance PCP Clearance RAST}}Hi story of Asthma:{{Yes No*}} Asthma Meds: ? ? ?Last used:? ? ? Asthma exacerbated by: ? ? ? Chance that : {{Yes No Not Sure N/A*}} Fear of needles: {{Yes No*}} Regular medications reviewed in Computer: {{Yes* No}} Medication allergies: {{Reviewed* NKDA}} Antihistamine use: {{Yes No*}} Medications used: ? ? ? Food Allergies: ? ? ? none Any foods make your mouth feeling itchy: {{Yes No*}} If yes: ? ? ? History of severe reaction where had to go to ER? {{Yes No*}} If yes details: ? ? ? Type of heat in home: {{Baseboard* [employer] Radiator other }} Pets: {{Yes No*}} If yes: ? ? ? Smoker: {{Yes Current Never* For yeny}} If former smoker-how much ? ? ? / day for how long ? ? ? When quit ? ? ? years ago Smoking now-how much ? ? ? /day for how long ? ? ? 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 ? ?runny nose, can't beath, head pressure, watery eyes, [...] for a different date {{Yes* No}} Other: ? ? ? Written by: {{CARLOS Song, Jerry Waddell*}} [email or web address] Not available 12/27/2023 15:09:39 Reason for Referral None Reported. Results Created Date Observation Date Name Description Value Unit Range Abnormal Flag Note LastModifiedBy Organization Detail LastModifiedTime 12/01/1907/15/2022 imagi ng/di agnos tic resul t No observ ation record ed. [email or web address] Not Available 07:07:48 01/31/2001/31/2024 CT, sinus es, w/o contr ast No observ ation record ed. [email or web address] [facility] [address], [place], [address], 02/01/2024 08:28:32 05/29/19 25 audio gram No observ ation record ed. BARCODE Not Available 2024 15:14:57 Result Notes None recorded. Problems Name Problem SNOMED Code Status Onset Date Resolution Date Notes Provider Name and Address Organization Details Recorded Time Closed fracture of nasal bones 21479545 Active 2022 Fracture of nasal bones, initial encounter for closed fracture; Note: Date Diagnosed : 07/21/2022 10:06 AM (S02.2XXA ) Not Available [facility] 4 02:14:15 Impacted cerumen in right ear 67061980935 65213 Active 2016 Impacted cerumen, right ear; Note: Date Diagnosed : 04/29/2016 4:34 PM (H61.21) Not Available [facility] 4 02:13:30 Allergic rhinitis caused by pollen 24072846 Active 2019 Allergy NOS due to pollen; Note: Date Diagnosed : 11/16/2019 11:51 AM (J30.1) Not Available [facility] 4 02:13:08 Impacted cerumen of bilateral ears 78707441835 38516 Active 2023 TATIANA DOLAN PA-C [address] [facility],[place] [address], [place], [address] , [facility] 4 14:04:01 Nasal congestio n 80915198 Active 2023 TATIANA DOLAN PA-C [address] [facility],[place] [address], [place], [address] , [place] [facility] 4 14:05:26 Allergic rhinitis 25543153 Active 2023 TATIANA DOLAN PA-C [address] [facility] [address], [place], [address] , [facility] 4 14:05:34 Seasonal allergic rhinitis 686300614 Active 2023 TATIANA DOLAN PA-C [address], [place], [address] , [facility] 4 14:05:34 Non-aller gic rhinitis 46743100976 1 Active 2023 TATIANA DOLAN PA-C [address] [facility] [address],[place] [address], [place], [address] , [facility] - [facility] 4 14:05:34 Abnormal auditory perceptio n 43284557 Active 2024 TAYLOR GUPTA AUD [address] [facility] [address], [place], [address] , [facility] - [facility] 5 11:50:31 Problem Notes None recorded. Procedures Surgical History Date Name Laterality Status Provider Name and Address Organization Details Recorded Time 05/29/19 25 Air & Speech Audio with Tymps (94485, 22467 & 84775) completed JEAN CLAUDE RENTERIA [address] [facility],[place] [address], [place], [address], [facility] - [facility] 05/29/2024 11:49:44 01/03/20 24 Allergy Testing-Full completed ANA LILIA STEPHEN [address] [facility],[place] [address], [place], [address], [facility] 01/03/2024 11:15:19 12/27/19 24 Allergy Testing Modified- Quantitative Testing (MQT) Only completed ANA LILIA STEPHEN [address] [facility],[place] [address], [place], [address], [facility] 12/27/2023 15:09:31 Imaging Results Imaging Date Name Status LastModified by [email or web address] Details LastModified Time 07/15/2022 imaging/diagno stic result completed [email or web address] Information not available 12/01/2023 07:07:48 01/31/2024 CT, sinuses, w/o contrast completed ken [facility] [address] [facility] [address], [place], [address], 02/01/2024 08:28:32 05/29/2024 audiogram completed BARCODE Information no t available 05/29/2024 15:14:57 Procedure Notes None recorded. Medical Equipment None Reported. Allergies Allergen ID Allergen Name Allergen Category Reaction Reaction Severity Criticality Documentation Date Start Date Code Code System Note Provider Name and Address Organization Details Recorded Time 56484 penicilli n V potassium medicatio n other Not available Not available 08/24/202378037 5 RxNorm React ion: unkno wn, unspe cifie d;; Not Available [facility] 00:[facility]:23 Medications Name Sig Start Date Stop [...] mg tablet 12/26 completed Medicati on ID: [id number] D uration Value: 10 Brand Name: predniso [...] MOUTH TWICE A DAY NEEDED FOR ANXIETY active Not Available Not Available No t Available gabapenti n 100 mg capsule TAKE 1-3 CAPS BY MOUTH AT BEDTIME active Not Available Not Available No t Available azelastin e 137 mcg (0.1 %) nasal spray Imbler 2 sprays twice a day by intranas al route for 30 days. active Not Available Not Available No t Available epinephri ne 0.3 mg/0.3 mL injection , auto-inje ctor Take 1 auto by injectio n route for 1 day, for anaphyla xis. active Not Available Not Available No t [...] subcut kit 11/15 completed Medicati on ID: [id number] D uration Value: 28 Reason: () Brand Name: Zackery Cabello Crohns-U C-HS Start Se nd Method: E-Prescr ibed Sub s Allowed: subs OK Medic ationGen ericName : Zackery Pen Crohns-U C-HS Start Not Available Not [...] Updated DateTime 12/06/2023 190.5 cm 31.2 kg/m2 696071.09 g Violet Cohenos [facility] 12/06/2023 13:48:51 Date Recorded Body height Body mass index (BMI) Body weight Oxygen saturation Oxygen saturation in Arterial blood by Pulse oximetry Heart rate Systolic blood pressure Diastolic blood pressure Provider Name and Address Organization Details Last Updated DateTime 190.5 cm 30 kg/m2 654351. 17 g 99 % 99 % 63 /min 121 mm[Hg] 83 mm[Hg] ANA LILIA STEPHEN [address] [place] [address], [address] [place] [address] [facility] 14:29:13 Date Recorded Body height Body mass index (BMI) Body weight Provider Name and Address Organization Details Last Updated DateTime 05/29/2024 190.5 cm 29.4 kg/m2 425242.21 g Dianna Cantu [facility] 05/29/2024 11:17:54 Social History None recorded. Functional Status None recorded. Mental Status None recorded. Family History Nothing Reported. Medical History No medical history recorded. Past Encounters Encounter ID Performer Location Encounter Start Date Encounter Closed Date Diagnosis/Indication Diagnosis SNOMED-CT Code Diagnosis ICD10 Code Diagnosis Note [id number] CARO DUNCAN MD [facility] [address] [address] 12/06/2023 13:31:09 12/06/2023 13:55:51 Nasal congestion 11294371 R09.81 [id number] ANA LILIA STEPHEN Allergy [address] [place] [address] [address] 12/27/2023 14:12:56 12/27/2023 15:26:25 Allergic rhinitis 22220067 J30.9 [id number] ANA LILIA STEPHEN Allergy [address] [place] [address] 01/03/2024 10:16:10 01/03/2024 10:17:15 Allergic rhinitis 06973427 J30.9 [id number] ARNEL CISNEROS MD [facility] [address] [place] [address] 05/29/2024 11:04:38 05/29/2024 12:04:22 Nasal congestion 89190713 R09.81 Allergic rhinitis 135116 04 J30.89 Abnormal a uditory perception 51339515 H93.299 Right Ear:Normal hearing with excellent speech discrimina tion.Type A tympanogra m.Left Ear:Normal hearing with excellent speech discrimina tion.Type A tympanogra m. Health Concerns Section Related Observation LastModified by Organization Detai ls LastModified Time None Recorded Concern Status LastModified by Organization Details LastModified Time None Recorded Advance Directives Directive None Recorded Payers Encounter Date Sequence Insurance Name Policy Number Policy [place] Covered Member ID [place]or[place] Member ID Guarantor Name 12/06/2023 1 [facility] [place] [place] [id number] Tyler Flores Mccann [id number] Tyler L Mccann 12/27/2023 1 [facility] [place] [place] [id number] Tyler L Mccann [id number] Tyler L Mccann 01/03/2024 1 [facility] [employer] ([facility]) [id number] Tyler L Mccann [id number] Tyler L Mccann 05/29/2024 1 [facility] [place] [place] [id number] Tyler L Mccann [id number] Tyler L Mccann Notes Date Note Type [...] of sinus infections. CARO DUNCAN MD [address] [facility],[address], [address], [facility] 12/07/2023 16:32:07 05/29/2024 text/html 28-year-old male presents for review of allergy testing and CT sinus. He has been using Flonase daily without improvement. CT sinus was also ordered. He continues to have nasal congestion, sneezing, rhinorrhea, decreased sense of smell, and facial pressure. No history of recurrent sinusitis. Also notes decreased hearing bilaterally for a few years. ARNEL BUNN MD [address] [facility],[place] [address], [place], [address], [facility] 05/29/2024 17:08:31
--- OUTSIDE RECORDS SUMMARY | 2024-06-20 10:55 | XMS_ITS | Continuity of Care Document ---
Author Organization [facility] - [facility], [facility] Address [address] [place] [address] Care Team Providers Care Clinical Data Abstractor Name Role Phone YARIEL PANDEY Primary Care Provider [phone] YARIEL VIZCARRA Primary Care Provider [phone] Assessment Encounter Date Assessment Date Assessment LastModified by Organization Details LastModified Time 05/29/2024 05/29/2024 28-year-old male presents for review [...] 2024 025 [email or web address] Not available 06/06/2024 12:50:31 Surgeries None recorded. Imaging None recorded. Medication Orders epinephri ne 0.3 mg/0.3 mL injection , auto-inje ctor [address] [facility]/Pharmacy #[id number], [address] [place], [address], 05/29/2024 12:32:14 azelastin e 137 mcg (0.1 %) nasal spray [address] [facility]/Pharmacy #[id number], [address] [place], [address], 05/29/2024 12:34:07 Patient TargetsNo targets recorded. Patient InstructionsNo instructions recorded. Reason for Referral None Reported. Results Created Date Observation Date Name Description Value Unit Range Abnormal Flag Note LastModifiedBy Organization Detail LastModifiedTime 05/29/19 25 audio gram No observ ation record ed. BARCODE Not Available 2024 15:14:57 Result Notes None recorded. Problems Name Problem SNOMED Code Status Onset Date Resolution Date Notes Provider Name and Address Organization Details Recorded Time Closed fracture of nasal bones 82783816 Active 2022 Fracture of nasal bones, initial encounter for closed fracture; Note: Date Diagnosed : 07/21/2022 10:06 AM (S02.2XXA ) Not Available [facility] 4 02:14:15 Impacted cerumen in right ear [id number] 54280 Active 2016 Impacted cerumen, right ear; Note: Date Diagnosed : 04/29/2016 4:34 PM (H61.21) Not Available [facility] 4 02:13:30 Allergic rhinitis caused by pollen 56105972 Active 2019 Allergy NOS due to pollen; Note: Date Diagnosed : 11/16/2019 11:51 AM (J30.1) Not Available [facility] 4 02:13:08 Impacted cerumen of bilateral ears 00484437451 85150 Active 2023 TATIANA DOLAN PA-C [address] [facility],[place] [address], [address] , [facility] - [facility] [place] 4 14:04:01 Nasal congestio n 20236916 Active 2023 TATIANA DOLAN PA-C [address] [place] [address],[place] [address], [place], [address] , [facility] - [facility] [place] 4 14:05:26 Allergic rhinitis 23271210 Active 2023 TATIANA DOLAN PA-C [address] [facility],[place] [address], [address] , [facility] - [facility] [place] 4 14:05:34 Seasonal allergic rhinitis 149972398 Active 2023 TATIANA DOLAN PA-C [address] [facility],[place] [address], [address] , [facility] - [facility] [place] 4 14:05:34 Non-aller gic rhinitis 05146085526 1 Active 2023 TATIANA DOLAN PA-C [address] [facility],[place] [address], [address] , [facility] 14:05:34 Abnormal auditory perceptio n 77882813 Active 2024 TAYLORVINNIE GUPTA, [facility] [address] [facility],[place] [address], [facility] [place] [place], [address] , [facility] 11:50:31 Problem Notes None recorded. Procedures Surgical History Date Name Laterality Status Provider Name and Address Organization Details Recorded Time 05/29/19 25 Air & Speech Audio with Tymps (98451, 59284 & 02789) completed TAYLORALEXANDRO GUPTA [facility] [address] [facility],[place] [address], [place], [address], [facility] 05/29/2024 11:49:44 01/03/20 24 Allergy Testing-Full completed RYLEY BARDALES [facility] [address] [facility],[place] [address], [place], [address], [facility] 01/03/2024 11:15:19 12/27/19 24 Allergy Testing Modified- Quantitative Testing (MQT) Only completed RYLEY BARDALES [facility] [address] [facility],[place] [address], [place], [address], [facility] 12/27/2023 15:09:31 Imaging Results None recorded. Procedure Notes None recorded. Medical Equipment None Reported. Allergies Allergen ID Allergen Name Allergen Category Reaction Reaction Severity Criticality Documentation Date Start Date Code Code System Note Provider Name and Address Organization Details Recorded Time 11172 penicilli n V potassium medicatio n other Not available Not available 08/24/2023 5 RxNorm React ion: unkno wn, unspe cifie d;; Not Available [facility] 00:50:23 Medications Name Sig Start Date Stop [...] mg tablet 12/26 completed Medicati on ID: [id number] D uration Value: 10 Brand Name: predniso ne Send Method: E-Prescr ibed Sub s Allowed: subs OK Speci al Instruct ion: TAKE 1 TABLET BY MOUTH EVERY DAY FOR 10 DAYS Med icationG enericMira me: predniso ne Not Available Not Available [...] e 137 mcg (0.1 %) nasal spray [place] 2 sprays twice a day by intranas [...] subcut kit 11/15 completed Medicati on ID: [id number] D uration Value: 28 Reason: () Brand [...] Updated DateTime 05/29/2024 190.5 cm 29.4 kg/m2 286901.21 g Dianna Cantu [place] - [facility] 05/29/2024 11:17:54 Social History None recorded. Functional Status None recorded. Mental Status None recorded. Family History Nothing Reported. Medical History No medical history recorded. Past Encounters Encounter ID Performer Location Encounter Start Date Encounter Closed Date Diagnosis/Indication Diagnosis SNOMED-CT Code Diagnosis ICD10 Code Diagnosis Note [id number] ARNEL CISNEROS MD [facility] [address] [place] [address] 05/29/2024 11:04:38 05/29/2024 12:04:22 Nasal congestion 40000720 R09.81 Allergic rhinitis 122657 04 J30.89 Abnormal a uditory perception 69113127 H93.299 Right Ear:Normal hearing with excellent speech discrimina tion.Type A tympanogra m.Left Ear:Normal hearing with excellent speech discrimina tion.Type A tympanogra m. Health Concerns Section Related Observation LastModified by Organization Detai ls LastModified Time None Recorded Concern Status LastModified by Organization Details LastModified Time None Recorded Payers Encounter Date Sequence Insurance Name Policy Number Policy [place] Covered Member ID En[place]or[place] Member ID Guarantor Name 05/29/2024 1 [facility] (O) [id number] Tyler Mccann [id number] Tyler Mccann Notes Date Note Type Note Provider Name and Address Organization Details Recorded Time 05/29/2024 text/html 28-year-old male presents for review of allergy testing and CT sinus. He has been using Flonase daily without improvement. CT sinus was also ordered. He continues to have nasal congestion, sneezing, rhinorrhea, decreased sense of smell, and facial pressure. No history of recurrent sinusitis. Also notes decreased hearing bilaterally for a few years. ARNEL BUNN MD [address] [place] [address], [phone], [facility] - [facility] 05/29/2024 17:08:31
== END 2024-06-20 10:59 | disposition home or self-care (01) ==
PROVIDERS: PCP Nurse Practitioner Family; Visit Provider Physician Assistant
DX: M54.41 Lumbago with sciatica, right side (principal); M54.42 Lumbago with sciatica, left side

== ENCOUNTER → 2024-06-20 09:39 | Outpatient (BNVA) | payer OTHER, SELFPAY | PROVIDERS: PCP Nurse Practitioner Family; Visit Provider Physician Assistant | DX: M54.41 Lumbago with sciatica, right side (principal); M54.42 Lumbago with sciatica, left side | CPT/HCPCS: 99212 ==

== ENCOUNTER 2024-06-21 11:49 | Outpatient (AMB) | payer OTHER, SELFPAY ==
--- NOTE | 2024-06-21 11:51 | A.OFFPC_ITS ---
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 Required: No Allergies penicillin V Allergy (Intermediate, Verified 06/21/24 12:05) rash Medication List - Last Reconciled 06/21/24 by Neel Kothari CNP acetaminophen (Tylenol Extra Strength) 500 mg PO Q6H PRN hydroxyzine HCl 25 mg orally Take one tablet daily if needed for anxiety and take 1-2 before bedtime as needed PRN; 30 days ibuprofen 600 mg PO Q8H PRN lisdexamfetamine (Vyvanse) 30 mg PO QAM 30 days magnesium glycinate 87.5 tabs PO QID magnesium L-threonate mg PO melatonin 3 mg PO BEDTIME PRN miscellaneous medical supply (Blood Pressure Cuff) blood pressure checks daily and as needed large cuff please omeprazole 40 mg PO DAILY prednisone 40 mg (2 x 20 mg) PO QAM sucralfate (Carafate) 10 mL PO BID Tobacco use date assessed: 06/21/24 Dental Screening Dental Screen Date: 06/21/24 Did you have a dental visit in the last 12 months?: No Did you have a dental problem in the last 6 months where you did not have access to dental care?: No Was dental information given to patient?: Patient declined HPI HPI Comments History of Present Illness Details 28-year-old male presents with complaint s of sleep disturbance. He reports difficulty falling and staying asleep. He sleeps an average of 4-5 hours nightly. He sleeps in a dark room and avoids electronic devices during bedtime. He exercise routinely. He is currently on hydroxyzine 25 mg, 1 tab daily as needed for anxiety and 1-2 tabs at bedtime as needed for anxiety, and Vyvanse 30 mg daily. He admits to taking his medications as prescribed without adverse reactions. He takes melatonin 3 mg and magnesium l-theonate 48 mg (3 capsules) every night. He also takes magnesium glycinate 87.5 mg four times daily. He has been exercising 3-4 times weekly in the early evening. He notes that his anxiety and depressive symptoms are generally better controlled with adequate sleep. He thinks his sleep disturbance may be related to pain, trauma, anxiety, or depression. She notes persistent chronic generalized back pain, worse to lower back, for the past 5 years and persistent bilateral knee pain secondary to arthritis since childhood. No tingling or numbness. He was evaluated at the [facility] for back pain yesterday and prescribed Prednisone 40 mg daily x 5 days; he has not started the medication. His PCP referred him to PT for back pain in 11/2023 but he has not been contacted for an appointment. He was Wellbutrin and clonidine last year but stopped taking the medications after his anxiety, depression, and sleep disturbance improved. He notes that he is awaiting to be contacted by [facility] to scheduled an appointment with a therapist. He has not followed by a psychiatrist. 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 Mother Hypertension Maternal Grandfather Diabetes Stroke Other Anemia Social History Household Members: Friend(s) Housing: Apartment Are you a primary elderly caregiver to a significant other at home: No Do you presently have visiting nurse or other home services: No Alcohol intake: never Patient Tobacco Use Status: Never used Tobacco e-Cigarette/Vaping Use: Never Used Second Hand Smoke Exposure: No service: No Current occupational status: employed Current occupation: [employer] Cognitive needs: No Hearing needs: No Vision needs: No Questionnaire PHQ-9 Over the last 2 weeks, how often have you been bothered by any of the following problems? 1. Little interest or pleasure in doing things: more than half the days 2. Feeling down, depressed, or hopeless: several days 3. Trouble falling or staying asleep, or sleeping too much: nearly every day 4. Feeling tired or having little energy: nearly every day 5. Poor appetite or overeating: more than half the days 6. Feeling bad about yourself - or that you are a failure or have let yourself or your family down: more than half the days 7. Trouble concentrating on things, such as reading the newspaper or watching television: more than half the days 8. Moving or speaking so slowly that other people could have noticed. Or the opposite - being so fidgety or restless that you have been moving around a lot more than usual: more than half the days 9. Thoughts that you would be better off or of hurting yourself in some way: not at all Total score: 17 Depression Screening Interpretation: Positive Depression Screening Follow-up: Existing condition, In treatment and New Medication prescribed Depression Screening Done: Yes 29593 - PHQ-9 Billing: Yes Source: Developed by Drs. Sloan Almaraz, Molly Nelson, Chris simons nd colleagues, with an educational kulwinder from [employer]. Thrive Questionnaire Date Thrive assessed: 05/22/24 I am a: Patient What is your living situation today?: I have a steady place to live Within the past 12 months, did the food you bought not last and you didn't have the money to get more?: Never true Within the past 12 months, did you worry whether your food would run out before you got money to buy more?: Never true Do you have trouble paying for medicines?: No Do you have trouble getting transportation to medical appointments?: No Do you have trouble paying your heating and electricity bill?: No Do you have trouble taking care of your child, family member or friend?: No Do you have trouble with day-to-day activities such as bathing, preparing meals, shopping, managing finances, etc.?: Yes Are you currently unemployed and looking for a job?: No Are you interested in more education?: No Please select the resources that you would like help with: None THRIVE Score: 0 AUDIT C Alcohol Use Questionnaire (AUDIT-C) 1. How often do you have a drink containing alcohol?: Never 3. How often do you have six or more drinks on one occasion?: Never Total Score: 0 CHARLEEN-7 AMB Questionnaire CHARLEEN-7 Date CHARLEEN - 7 assessed: 06/21/24 Feeling nervous, anxious, or on edge: 2 = More than half the days Not being able to stop or control worryin = More than half the days Worrying too much about different things: 2 = More than half the days Trouble relaxin = Nearly every day Being so restless that it is hard to sit still: 3 = Nearly every day Becoming easily annoyed or irritable: 3 = Nearly every day Feeling afraid as if something awful might happen: 2 = More than half the days Total CHARLEEN-7 score (0-4 normal; 5-9 mild; 10-14 moderate; 15-21 severe): 17 Source: Developed by Drs. Sloan Almaraz, Molly Nelson, Chris Vazquez and colleagues, with an educational kulwinder from [employer]. CHARLEEN-7 Assessment Billing CHARLEEN-7 Assessment Tool: CHARLEEN-7 Assessment 42601 Review of Systems Const Details: Const Denies chills, Denies fatigue, Denies fever(s), Denies headache(s) and Denies weakness ENT Denies dizziness and Denies headache(s) Card Denies chest pain, Denies lightheadedness, Denies dyspnea and Denies other (Palpitations) Resp Denies cough, Denies dyspnea, Denies wheezing and Denies other ( shortness of breath) GI Denies abdominal pain, Denies melena, Denies hematochezia, Denies change in bowel habits, Denies dyspepsia and Denies nausea Denies hematuria and Denies dysuria Musc Reports as per HPI Skin/Breast Denies rash, Denies unusual bruising and Denies wounds Neuro Denies abnormal gait, Denies dizziness, Denies headache(s), Denies memory loss, Denies numbness, Denies Sensory deficit (Neuro), Denies tingling and Denies weakness Psych Reports anxiety, Reports depression, Denies memory loss Endo Denies cold intolerance, Denies fatigue, Denies heat intolerance, Denies polydipsia and Denies polyuria Aller/Immun Denies wheezing Physical exam (Primary Care) Vital Signs: Last Vital Signs Temp 98.1 F 06/21/24 11:55 Pulse 68 06/21/24 11:55 Resp 16 06/21/24 11:55 BP 128/68 06/21/24 11:55 Pulse Ox 100 06/21/24 11:55 Oxygen Delivery Method Room Air 06/21/24 11:55 BMI result Body Mass Index 31.7 Tobacco/Smoking Status: Tobacco use Status Tobacco use date assessed 06/21/24 06/21/24 11:57 Patient Tobacco Use Status Never used Tobacco 06/21/24 11:57 e-Cigarette/Vaping Use Never Used 06/21/24 11:57 Depression Screening Interpretation: Positive Depression Screening Follow-up: Existing condition, In treatment and New Medication prescribed Thrive Assessment: Date of Thrive Assessment Date Thrive assessed 05/22/24 06/21/24 11:57 Const Other: General: no acute distress and well developed Nutritional Appearance: well nourished Orientation/consciousness: patient oriented x3 HENMT Head: Yes normocephalic and Yes atraumatic Eyes General: appearance normal, both eyes and all related structures Pupils: Equal, round and reactive pupils present EOM: EOMs intact bilaterally Resp Effort & Inspection: normal respiratory effort Auscultation: clear to auscultation bilaterally Cardio Rate: regular rate Rhythm: regular rhythm Heart sounds: S1 normal heart sound present, S2 normal heart sound present, no gallops, no murmurs and no rubs GI Palpation (GI): No Abdominal aortic bruit present, Soft to palpation, nontender, No hepatosplenomegaly present and No Rebound tenderness present Auscultation: normal bowel sounds General: Yes no CVA tenderness Back/Spine/Pelvis Back: no CVA tenderness Cervical Spine: cervical ROM normal and No Cervical spine tenderness Thoracic/Lumbar Spine: thoraco-lumbar ROM normal, No pain with thoraco-lumbar ROM, No thoracic spinal tenderness and No lumbar spinal tenderness Extrem General: Yes normal to inspection, No edema and No calf tenderness Skin General: warm and dry. Normal skin color. Normal skin turgor Neuro General: patient oriented x3, gait normal and no focal neuro deficit Cranial nerves: Yes Equal, round and reactive pupils present Cognition (Neuro): normal cognition Gait exam (Neuro): Normal gait present Sensory Exam: No Sensory deficit (Neuro) Psych Appearance: grossly normal Affect: normal affect Attitude: cooperative Thought process: Normal thought process present Coding Level of Care Code Est Pt Level 4 (87540) Complex EM visit Add On G2211 Diagnoses CHARLEEN (generalized anxiety disorder) F41.1 Depression F32.9 Sleep disturbance G47.9 Chronic back pain M54.9; G89.29 Chronic pain of both knees M25.561; M25.562; G89.29 Laboratory tests ordered as part of a complete physical exam (CPE) Z00.00 Additional Codes CHARLEEN-7 Assessment Billing - CHARLEEN-7 Assessment Tool: CHARLEEN-7 Assessment 04940 ([id number]) PHQ-9 - 80927 - PHQ-9 Billing: Yes ([id number]) Assessment & Plan Assessment & Plan (1) CHARLEEN (generalized anxiety disorder): Code(s): F41.1 - Generalized anxiety disorder Category: Medical Plan: Patient presents with sleep disturbance, anxiety, and depressive symptoms. He attributes his sleep disturbance to anxiety, depression, trauma, and chronic back and bilateral knee pain. PHQ-9 and CHARLEEN-7 scores revealed moderately severe depression and severe anxiety respectively. Will start clonidine 150 mg daily; advised to take as prescribed. Instructed on the risks, benefits, and potential adverse reactions of the medication. Continue to take Vyvanse and hydroxyzine as prescribed. Encouraged to cut down on OTC sleep aid. Routine exercise encouraged. X-ray of the thoracic and cervical spine, and bilateral knee ordered. Will review results and make changes as needed. May refer to orthopedics. Referred to physical therapy for back and bilateral knee pain. Labs ordered in preparation for an extended physical exam. Follow-up in 2 weeks or sooner with symptoms or concerns. Verbalized understanding and agreed with treatment plan. (2) Depression: Code(s): F32.9 - Major depressive disorder, single episode, unspecified Category: Medical Plan: Plan as above. (3) Sleep disturbance: Code(s): G47.9 - Sleep disorder, unspecified Category: Medical Plan: Plan as above. (4) Chronic back pain: Code(s): M54.9 - Dorsalgia, unspecified; G89.29 - Other chronic pain Category: Medical Plan: Plan as above. (5) Chronic pain of both knees: Code(s): M25.561 - Pain in right knee; M25.562 - Pain in left knee; G89.29 - Other chronic pain Category: Medical Plan: Plan as above. (6) Laboratory tests ordered as part of a complete physical exam (CPE): Code(s): Z00.00 - Encounter for general adult medical examination without abnormal findings Category: Medical Plan: Fasting labs ordered as part of a complete physical exam. Advised to fast for at least 10 hours before getting labs drawn. May drink water Verbalized understanding and agreed with treatment plan. Orders: Orders Complete Blood Count Auto Diff Today Z00.00 - Encounter for general adult medical examination without abnormal findings Microalbumin, Random (w Creat) Today Z00.00 - Encounter for general adult medical examination without abnormal findings UA CC w/rflx Micro + Cult Today Z00.00 - Encounter for general adult medical examination without abnormal findings XR lumbar spine 2-3V Today G89.29 - Other chronic pain, M54.9 - Dorsalgia, unspecified XR knee RT 2V Today G89.29 - Other chronic pain, M25.561 - Pain in right knee, M25.562 - Pain in left knee Comprehensive [place]. Panel Fast Today Z00.00 - Encounter for general adult medical examination without abnormal findings Lipid Panel Today Z00.00 - Encounter for general adult medical examination without abnormal findings TSH reflex Free T4 Today Z00.00 - Encounter for general adult medical examination without abnormal findings Vitamin D 25-OH Total Today Z00.00 - Encounter for general adult medical examination without abnormal findings XR thoracic spine 2V Today G89.29 - Other chronic pain, M54.9 - Dorsalgia, unspecified XR knee LT 2V Today G89.29 - Other chronic pain, M25.561 - Pain in right knee, M25.562 - Pain in left knee PT Evaluation and Treatment Today G89.29 - Other chronic pain, M25.561 - Pain in right knee, M25.562 - Pain in left knee, M54.9 - Dorsalgia, unspecified Medications: Refilled bupropion HCl SR (Wellbutrin SR) 150 mg PO QAM 30 days 30 tabs 3RF
[2024-06-21 11:55] VITALS: BP 128/68; PULSE 68; RESP 16; TEMP 36.7; O2SAT 100; BMI 31.7
--- OUTSIDE RECORDS SUMMARY | 2024-06-21 13:53 | XMS_ITS | Data Portability ---
Author Organization [place] - [facility], Allergy Address [address] [address] Care Team Providers Care Loss Prevention Detective Name Role Phone YARIEL PANDEY Primary Care Provider YARIEL VIZCARRA Primary Care Provider Assessment Encounter Date Assessment Date Assessment LastModified [...] allergy testing, skin prick (PROC) 2023 024 [email or web address] Not available 12/27/2023 15:10:30 intraderm al allergy skin testing (PROC) 2023 024 [email or web address] Not available 12/27/2023 15:10:40 pulmonary function test procedure (PROC) 2023 024 [email or web address] Not available 12/27/2023 15:10:48 pulse oximetry (PROC) 2023 024 [email or web address] Not available 12/27/2023 15:15:49 Surgeries None recorded. Imaging CT, sinuses, w/o contrast 2023 024 [facility] [place], [address] [facility], [address], [place], [address], 01/31/2024 23:08:27 Medication Orders epinephri ne 0.3 mg/0.3 mL injection , auto-inje ctor 2024 025 [facility]/Pharmacy #[id number], [address] [place], [address], 05/29/2024 12:32:14 azelastin e 137 mcg (0.1 %) nasal spray 2024 025 [facility]/Pharmacy #[id number], [address] [place], [address], 05/29/2024 12:34:07 Patient TargetsNo targets recorded. Patient Instructions Encounter Date Encounter Id Patient Instructions Last Modified By Organization Details Last Modified Time 12/27/2023 [id number] Nursing Documentation for Allergy Testing: Ordering Provider [...] ? Written by: {{CARLOS Song, Jerry Waddell*}} [email or web address] Not available 12/27/2023 15:09:39 Reason for Referral None Reported. Results Created Date Observation Date Name Description Value Unit Range Abnormal Flag Note LastModifiedBy Organization Detail LastModifiedTime 12/01/1907/15/2022 imagi ng/di agnos tic resul t No observ ation record ed. [email or web address] Not Available 07:07:48 01/31/2001/31/2024 CT, sinus es, w/o contr ast No observ ation record ed. [email or web address] [facility] [address], [place], [address], 02/01/2024 08:28:32 05/29/19 25 audio gram No observ ation record ed. BARCODE Not Available 2024 15:14:57 Result Notes None recorded. Problems Name Problem SNOMED Code Status Onset Date Resolution Date Notes Provider Name and Address Organization Details Recorded Time Closed fracture of nasal bones 13206225 Active 2022 Fracture of nasal bones, initial encounter for closed fracture; Note: Date Diagnosed : 07/21/2022 10:06 AM (S02.2XXA ) Not Available [facility] 4 02:14:15 Impacted cerumen in right ear 81194021220 22769 Active 2016 Impacted cerumen, right ear; Note: Date Diagnosed : 04/29/2016 4:34 PM (H61.21) Not Available [facility] 4 02:13:30 Allergic rhinitis caused by pollen 48417944 Active 2019 Allergy NOS due to pollen; Note: Date Diagnosed : 11/16/2019 11:51 AM (J30.1) Not Available [facility] 4 02:13:08 Impacted cerumen of bilateral ears 94704859674 83768 Active 2023 TATIANA DOLAN PA-C [address] [facility],[place] [address], [place], [address] , [facility] - [facility] [place] 4 14:04:01 Nasal congestio n 08943273 Active 2023 TATIANA DOLAN PA-C [address] [facility],[place] [address], [place], [address] , [place] - [facility] [place] 4 14:05:26 Allergic rhinitis 53794354 Active 2023 TATIANA DOLAN PA-C [address] [facility] [address], [place], [address] , [facility] - [facility] [place] 4 14:05:34 Seasonal allergic rhinitis 359822877 Active 2023 TATIANA DOLAN PA-C [address], [place], [address] , [facility] - [facility] [place] 4 14:05:34 Non-aller gic rhinitis 57334029971 1 Active 2023 TATIANA DOLAN PA-C [address],[place] [address], [place], [address] , [facility] - [facility] [place] 4 14:05:34 Abnormal auditory perceptio n 07484937 Active 2024 TAYLOR GUPTA AUD [address] [facility] [place] [address], [place], [address] , [facility] - [facility] 5 11:50:31 Problem Notes None recorded. Procedures Surgical History Date Name Laterality Status Provider Name and Address Organization Details Recorded Time 05/29/19 25 Air & Speech Audio with Tymps (52454, 28089 & 48846) completed JEAN CLAUDE RENTERIA [address] [facility],[address] [address], [place], [address], [facility] - [facility] 05/29/2024 11:49:44 01/03/20 24 Allergy Testing-Full completed ANA LILIA STEPHEN [address] [facility],[address] [address], [place], [address], [facility] 01/03/2024 11:15:19 12/27/19 24 Allergy Testing Modified- Quantitative Testing (MQT) Only completed ANA LILIA STEPHEN [address] [facility],[address] [address], [place], [address], [facility] 12/27/2023 15:09:31 Imaging Results Imaging Date Name Status LastModified by [facility] Details LastModified Time 07/15/2022 imaging/diagno stic result completed [email or web address] Information not available 12/01/2023 07:07:48 01/31/2024 CT, sinuses, w/o contrast completed ken [facility] [address] [facility] [address], [place], [address], 02/01/2024 08:28:32 05/29/2024 audiogram completed BARCODE Information no t available 05/29/2024 15:14:57 Procedure Notes None recorded. Medical Equipment None Reported. Allergies Allergen ID Allergen Name Allergen Category Reaction Reaction Severity Criticality Documentation Date Start Date Code Code System Note Provider Name and Address Organization Details Recorded Time 44018 penicilli n V potassium medicatio n other Not available Not available 08/24/202383101 5 RxNorm React ion: unkno wn, unspe cifie d;; Not Available [facility] 00:50:23 Medications Name Sig Start Date [...] mg tablet 12/26 completed Medicati on ID: [id number] D uration Value: 10 Brand Name: predniso [...] e 137 mcg (0.1 %) nasal spray [place] 2 sprays twice a day by intranas [...] subcut kit 11/15 completed Medicati on ID: [id number] D uration Value: 28 Reason: () Brand [...] Updated DateTime 12/06/2023 190.5 cm 31.2 kg/m2 336528.09 g Violet Cohenos [facility] 12/06/2023 13:48:51 Date Recorded Body height Body mass index (BMI) Body weight Oxygen saturation Oxygen saturation in Arterial blood by Pulse oximetry Heart rate Systolic blood pressure Diastolic blood pressure Provider Name and Address Organization Details Last Updated DateTime 190.5 cm 30 kg/m2 813503. 17 g 99 % 99 % 63 /min 121 mm[Hg] 83 mm[Hg] ANA LILIA STEPHEN [address] [place] [address], [address] [place] [address] [facility] 14:29:13 Date Recorded Body height Body mass index (BMI) Body weight Provider Name and Address Organization Details Last Updated DateTime 05/29/2024 190.5 cm 29.4 kg/m2 397379.21 g Dianna Cantu [facility] 05/29/2024 11:17:54 Social History None recorded. Functional Status None recorded. Mental Status None recorded. Family History Nothing Reported. Medical History No medical history recorded. Past Encounters Encounter ID Performer Location Encounter Start Date Encounter Closed Date Diagnosis/Indication Diagnosis SNOMED-CT Code Diagnosis ICD10 Code Diagnosis Note [id number] CARO DUNCAN MD [facility] of [address] [address] 12/06/2023 13:31:09 12/06/2023 13:55:51 Nasal congestion 05863755 R09.81 [id number] ANA LILIA STEPHEN Allergy [address] [place] [address] [address] 12/27/2023 14:12:56 12/27/2023 15:26:25 Allergic rhinitis 62165532 J30.9 [id number] ANA LILIA STEPHEN Allergy [address] [place] [address] 01/03/2024 10:16:10 01/03/2024 10:17:15 Allergic rhinitis 76897721 J30.9 [id number] ARNEL CISNEROS MD [facility] of [facility] 100 [facility] [place] [address] 05/29/2024 11:04:38 05/29/2024 12:04:22 Nasal congestion 48730752 R09.81 Allergic rhinitis 490542 04 J30.89 Abnormal a uditory perception 38329536 H93.299 Right Ear:Normal hearing with excellent speech [...] Enamorado Member ID Guarantor Name 12/06/2023 1 [facility] [id number] Tyler Flores Mccann [id number] 00 Tyler L Mccann 12/27/2023 1 [facility] [id number] Tyler L Mccann [id number] 00 Tyler L Mccann 01/03/2024 1 [facility] ([facility] [id number] Tyler L Mccann [id number] 00 Tyler L Mccann 05/29/2024 1 [facility] [id number] Tyler L Mccann [id number] 00 Tyler L Mccann Notes Date Note [...] of sinus infections. CARO DUNCAN MD [address] [facility],[address], [address], [facility] 12/07/2023 16:32:07 05/29/2024 text/html 28-year-old male presents for review of allergy testing and CT sinus. He has been using Flonase daily without improvement. CT sinus was also ordered. He continues to have nasal congestion, sneezing, rhinorrhea, decreased sense of smell, and facial pressure. No history of recurrent sinusitis. Also notes decreased hearing bilaterally for a few years. ARNEL BUNN MD [address] [facility],[address] [address], [place], [address], [facility] 05/29/2024 17:08:31
--- OUTSIDE RECORDS SUMMARY | 2024-06-21 13:54 | XMS_ITS | Continuity of Care Document ---
Author Organization [place] - [facility], [facility] Address [address] [place] [address] Care Team Providers Care Production Line Welder Name Role Phone YARIEL PANDEY Primary Care Provider [phone] YARIEL VIZCARRA Primary Care Provider Assessment Encounter [...] [id number] [facility]/Pharmacy #[id number], [address] [place], [address], 05/29/2024 12:32:14 azelastin e 137 mcg (0.1 %) nasal spray 2024 025 [facility]/Pharmacy #[id number], [address] [place], [address], 05/29/2024 12:34:07 Patient TargetsNo targets recorded. Patient [...] Recorded Time Closed fracture of nasal bones 16665267 Active 2022 Fracture of nasal bones, initial encounter for closed fracture; Note: Date Diagnosed : 07/21/2022 10:06 AM (S02.2XXA ) Not Available [facility] 4 02:14:15 Impacted cerumen in right ear 53826480299 42435 Active 2016 Impacted cerumen, right ear; Note: Date Diagnosed : 04/29/2016 4:34 PM (H61.21) Not Available [facility] 4 02:13:30 Allergic rhinitis caused by pollen 72301631 Active 2019 Allergy NOS due to pollen; Note: Date Diagnosed : 11/16/2019 11:51 AM (J30.1) Not Available [facility] 4 02:13:08 Impacted cerumen of bilateral ears 46675126779 69977 Active 2023 TATIANA DOLAN PA-C 100 [facility],[place] [address], [address] , [facility] - [facility] [place] 4 14:04:01 Nasal congestio n 35388683 Active 2023 TATIANA DOLAN PA-C [address] [place] [address],[place] [address], [place], [address] , [facility] - [facility] [place] 4 14:05:26 Allergic rhinitis 91738254 Active 2023 TATIANA DOLAN PA-C [address] [facility],[place] [address], [address] , [facility] - [facility] [place] 4 14:05:34 Seasonal allergic rhinitis 489241712 Active 2023 TATIANA DOLAN PA-C [address] [facility],[place] [address], [address] , [facility] - [facility] [place] 4 14:05:34 Non-aller gic rhinitis 00478353721 1 Active 2023 TATIANA DOLAN PA-C [address] [facility],[place] [address], [address] , [facility] 14:05:34 Abnormal auditory perceptio n 93629620 Active 2024 TAYLORVINNIE GUPTA, [facility] [address] [facility],[place] [address], [place], [address] , [facility] 11:50:31 Problem Notes None recorded. Procedures Surgical History Date Name Laterality Status Provider Name and Address Organization Details Recorded Time 05/29/19 25 Air & Speech Audio with Tymps (40839, 00588 & 73988) completed TAYLORALEXANDRO GUPTA [facility] [address] [facility],[place] [address], [place], [address], [facility] 05/29/2024 11:49:44 01/03/20 24 Allergy Testing-Full completed RYLEY BARDALES [facility] [address] [facility],[place] [address], [place], [address], [facility] 01/03/2024 11:15:19 12/27/19 24 Allergy Testing Modified- Quantitative Testing (MQT) Only completed RYLEY BARDALES [facility] [address] [facility],[place] [address], [place], [address], [facility] 12/27/2023 15:09:31 Imaging Results None recorded. Procedure Notes None recorded. Medical Equipment None Reported. Allergies Allergen ID Allergen Name Allergen Category Reaction Reaction Severity Criticality Documentation Date Start Date Code Code System Note Provider Name and Address Organization Details Recorded Time 42290 penicilli n V potassium medicatio n other [...] mg tablet 12/26 completed Medicati on ID: [id number] D uration Value: 10 Brand Name: predniso [...] e 137 mcg (0.1 %) nasal spray [place] 2 sprays twice a day by intranas [...] subcut kit 11/15 completed Medicati on ID: [id number] D uration Value: 28 Reason: () Brand [...] Updated DateTime 05/29/2024 190.5 cm 29.4 kg/m2 870619.21 g Dianna Cantu [place] - [facility] 05/29/2024 11:17:54 Social History None recorded. Functional Status None recorded. Mental Status None recorded. Family History Nothing Reported. Medical History No medical history recorded. Past Encounters Encounter ID Performer Location Encounter Start Date Encounter Closed Date Diagnosis/Indication Diagnosis SNOMED-CT Code Diagnosis ICD10 Code Diagnosis Note [id number] ARNEL CISNEROS MD [facility] [address] [place] [address] 05/29/2024 11:04:38 05/29/2024 12:04:22 Nasal congestion 06509820 R09.81 Allergic rhinitis 826456 04 J30.89 Abnormal a uditory perception 32665158 H93.299 Right Ear:Normal hearing with excellent speech [...] Enamorado Member ID Guarantor Name 05/29/2024 1 [facility] ([facility]) [id number] Tyler Mccann [id number] 00 Tylre Mccann Notes Date Note Type Note Provider [...] for a few years. ARNEL BUNN MD [address] [place] [address], [address], [facility] - [facility] 05/29/2024 17:08:31
== END 2024-06-21 12:38 | disposition home or self-care (01) ==
LOC: HO.HMCFM 11:50
PROVIDERS: PCP Nurse Practitioner Family; Visit Provider Nurse Practitioner Family
DX: F41.1 Generalized anxiety disorder (principal); F32.9 Major depressive disorder, single episode, unspecified; G47.9 Sleep disorder, unspecified; M54.9 Dorsalgia, unspecified; G89.29 Other chronic pain; M25.561 Pain in right knee; M25.562 Pain in left knee; Z00.00 Encounter for general adult medical examination without abnormal findings

== ENCOUNTER → 2024-06-21 11:49 | Outpatient (BNVA) | payer OTHER, SELFPAY | PROVIDERS: PCP Nurse Practitioner Family; Visit Provider Nurse Practitioner Family | DX: F41.1 Generalized anxiety disorder (principal); F32.9 Major depressive disorder, single episode, unspecified; G47.9 Sleep disorder, unspecified; M54.9 Dorsalgia, unspecified; G89.29 Other chronic pain; M25.561 Pain in right knee; M25.562 Pain in left knee | CPT/HCPCS: 96127; 99212 ==

== ENCOUNTER 2024-06-22 09:19 | Outpatient (REF) | payer OTHER, SELFPAY ==
--- NOTE | ~2024-06-22 | XR_ITS ---
EXAMINATION: XR THORACIC SPINE CLINICAL INFORMATION: M54.9 - Dorsalgia, unspecified COMPARISON: None available. TECHNIQUE: 3 views of the thoracic spine were obtained. FINDINGS: There is a very mild right convex scoliosis, apex at T6. There is a normal kyphosis. There is no fracture, compression deformity, subluxation, or cysts. Bone lesion. The There are mild degenerative disc changes throughout the thoracic region. There is normal facet alignment with mild facet arthritis. Swimmer's view demonstrates mild to moderate narrowing of the C5-6 disc. Imaged lungs, soft tissues, and mediastinal contents appear normal. XR/XR thoracic spine 2V IMPRESSION: Mild degenerative spondylosis of the thoracic spine. No acute bony abnormality. Electronically signed by: Leonides Cruz MD 06/22/2024 11:53 AM EDT
--- NOTE | ~2024-06-22 | XR_ITS ---
EXAMINATION: XR LUMBOSACRAL SPINE CLINICAL INFORMATION: M54.9 - Dorsalgia, unspecified COMPARISON: 12/30/2019 TECHNIQUE: Three views of the lumbosacral spine. FINDINGS: Minimal levoconvex scoliosis, possibly positional. Normal lordosis. No fracture, compression deformity, or suspicious bone lesion. There is a trace degenerative retrolisthesis of L4 on L5. There is moderate to severe disc degeneration focally at L5-S1. There is otherwise minimal disc degeneration. There is normal facet alignment without significant facet arthrosis. SI joints appear normal. Sacrum is intact. The imaged soft tissues appear normal. XR/XR lumbar spine 2-3V IMPRESSION: 1. Degenerative changes of the lumbar spine relatively confined to L5-S1. This has significantly progressed from 2020. Electronically signed by: Leonides Cruz MD 06/22/2024 11:55 AM EDT
--- NOTE | ~2024-06-22 | XR_ITS ---
EXAMINATION: XR KNEE, LEFT CLINICAL INFORMATION: M25.561 - Pain in right knee COMPARISON: 12/01/2016, 01/14/2022. TECHNIQUE: AP and lateral views of the left knee. FINDINGS: No fracture, dislocation, or suspicious bone lesion. Normal bone mineralization. Normal alignment. Mild to moderate arthritic changes with productive marginal osteophytes are present in all 3 compartments. Joint spaces are only mildly narrowed. Immediately posterior to the medial tibial spine, there appears to be a posterior exostosis, slightly larger than previously. No significant joint effusion. Soft tissues appear normal. XR/XR knee LT 2V IMPRESSION: 1. 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 No acute findings. 2. Mildly larger exostosis arising from the posterior medial tibial plateau. Electronically signed by: Leonides Cruz MD 06/22/2024 11:51 AM EDT
--- NOTE | ~2024-06-22 | XR_ITS ---
EXAMINATION: XR KNEE, RIGHT CLINICAL INFORMATION: M25.561 - Pain in right knee COMPARISON: 07/16/2022. TECHNIQUE: AP and lateral views of the right knee. FINDINGS: No fracture, dislocation, or suspicious bone lesion. Normal bone mineralization. Normal alignment. Mild to moderate arthritic changes with productive marginal osteophytes are present in all 3 compartments. Joint spaces are only mildly narrowed. No significant joint effusion. Soft tissues appear normal. XR/XR knee RT 2V IMPRESSION: 1. 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 No acute findings. No interval change. Electronically signed by: Leonides Cruz MD 06/22/2024 11:47 AM EDT
[2024-06-22 09:45] LABS: MANUAL DIFF FLAG NO
[2024-06-22 10:48] LABS: Basophils Percent Auto 0.5 % (0-2); Eosinophils Absolute Auto 0.1 X10*3/uL (0.0-0.4); Eosinophils Percent Auto 2.1 % (0-4); Hematocrit 46.9 % (42.0-52.0); Hemoglobin 15.6 g/dl (14.0-18.0); Imm Gran Abs Auto 0.02 X10*3/uL (0.00-0.03); Imm Gran Pct Auto 0.4 % (0.0-0.4); Lymphocytes Absolute Auto 1.4 X10*3/uL (1.2-4.9); Lymphocytes Percent Auto 24.3 % (20-40); Mean Corpuscular HGB Conc 33.3 g/dl (31.0-36.0); Mean Corpuscular Hemoglobin 29.7 pg (27.0-33.0); Mean Corpuscular Volume 89.2 fL (80.0-98.0); Mean Platelet Volume 9.7 fL (9.4-12.4); Monocytes Absolute Auto 0.4 X10*3/uL (0.1-1.2); Monocytes Percent Auto 7.1 % (2-11); Neutrophils Absolute Auto 3.7 x10*3/uL (2.0-8.3); Neutrophils Percent Auto 65.6 % (45-73); Platelet Count 227 X10*3/uL (160-400); Red Blood Count 5.26 X10*6/uL (4.60-5.80); Red Cell Distribution Width 13.5 % (11.0-16.0); White Blood Count 5.6 X10*3/uL (4.8-10.8)
[2024-06-22 11:26] LABS: Alanine Aminotransferase 33 U/L (0-40); Albumin Level 4.6 g/dL (3.5-5.0); Alkaline Phosphatase 71 U/L (39-117); Anion Gap 11 (12-20); Aspartate Amino Transferase 19 U/L (5-37); Bilirubin Total 0.3 mg/dL (0.0-1.0); Blood Urea Nitrogen 16 mg/dL (9-16); C Reactive Protein < 0.10 mg/dL (< or = 0.50); Calcium 9.3 mg/dL (8.4-10.2); Carbon Dioxide 27 mmol/L (22-29); Chloride 109 mmol/L (96-108); Cholesterol 172 mg/dL (<200); Estimated Glomerular Filt Rate > 60; Glucose Fasting 96 mg/dL (60-99); Glucose Random 96 mg/dL (60-115); HDL Cholesterol 65 mg/dL (>40); LDL Cholesterol Calculated 101 mg/dL (<100); Sodium 142 mmol/L (135-145); Total Protein 7.7 g/dL (6.5-8.0); Triglycerides 34 mg/dL (<150)
[2024-06-22 11:42] LABS: TSH reflex Free T4 1.47 uIU/mL (0.32-4.0); Vitamin D 25-OH Total 45.4 ng/mL (>30)
[2024-06-23 16:03] LABS: Homocysteine 6.2 umol/L (<11.4)
== END 2024-06-22 09:20 | disposition home or self-care (01) ==
LOC: HO.LAB 09:19
PROVIDERS: Internal Medicine Gastroenterology; Nurse Practitioner Family; PCP Nurse Practitioner Family; Visit Provider Nurse Practitioner Family
DX: Z00.00 Encounter for general adult medical examination without abnormal findings (principal); D64.9 Anemia, unspecified; I10 Essential (primary) hypertension; K50.90 Crohn's disease, unspecified, without complications; K75.81 Nonalcoholic steatohepatitis (NASH); R53.83 Other fatigue; M25.561 Pain in right knee; M25.562 Pain in left knee; G89.29 Other chronic pain; M54.9 Dorsalgia, unspecified; M47.817 Spondylosis without myelopathy or radiculopathy, lumbosacral region
CPT/HCPCS: 36415; 72070; 72100; 73560; 80053; 80061; 82306; 83090; 84443; 85025; 86140

== ENCOUNTER → 2024-06-22 09:45 | Outpatient (BNV) | payer OTHER, SELFPAY | PROVIDERS: PCP Nurse Practitioner Family; Visit Provider Radiology Diagnostic Radiology | DX: M54.9 Dorsalgia, unspecified (principal); M25.561 Pain in right knee; M25.562 Pain in left knee | CPT/HCPCS: 72070; 72100; 73560 ==

== ENCOUNTER 2024-06-23 11:42 | Outpatient (REF) | payer OTHER, SELFPAY ==
[2024-06-23 11:53] LABS: Appearance Urine Clear; Color Urine Yellow; Glucose Urine UA Negative (Negative); Leukocyte Esterase Urine Negative (Negative); Nitrite Urine Negative (Negative); PH 6.5 (5.0-9.0); Specific Gravity - Urine 1.025 (1.005-1.025); Urine Blood Negative (Negative); Urine Ketones Negative (Negative); Urine Protein Negative (Neg-Trace)
[2024-06-23 12:48] LABS: Creatinine Urine 190.68 mg/dL; Microalbum/Creatinine Ratio Ur 5.7 ug/mg cr (<30)
--- OUTSIDE RECORDS SUMMARY | 2024-06-23 13:32 | XMS_ITS | Data Portability ---
Author Organization [place] - [facility], Allergy Address [address] [address] Care Team Providers Care Harness Rigger Name Role Phone YARIEL PANDEY Primary Care [...] allergy testing, skin prick (PROC) 2023 024 [email or web address] Not available 12/27/2023 15:10:30 intraderm al allergy skin testing (PROC) 2023 024 [email or web address] Not available 12/27/2023 15:10:40 pulmonary function test procedure (PROC) 2023 024 [email or web address] Not available 12/27/2023 15:10:48 pulse oximetry (PROC) 2023 024 [email or web address] Not available 12/27/2023 15:15:49 Surgeries None recorded. Imaging CT, sinuses, w/o contrast 2023 024 [place] [facility] [place], [address] [facility], [address], [place], [address], 01/31/2024 23:08:27 Medication Orders epinephri ne 0.3 mg/0.3 mL injection , auto-inje ctor [address] [facility]/Pharmacy #[id number], [address] [place], [address], 05/29/2024 12:32:14 azelastin e 137 mcg (0.1 %) nasal spray [address] [facility]/Pharmacy #[id number], [address] [place], [address], 05/29/2024 12:34:07 Patient TargetsNo targets recorded. Patient Instructions Encounter Date Encounter Id Patient Instructions Last Modified By Organization Details Last Modified Time 12/27/2023 [id number] Nursing Documentation for Allergy Testing: Ordering Provider [...] ? Written by: {{CARLOS Song, Jerry Waddell*}} [email or web address] Not available 12/27/2023 15:09:39 Reason for Referral None Reported. Results Created Date Observation Date Name Description Value Unit Range Abnormal Flag Note LastModifiedBy Organization Detail LastModifiedTime 12/01/1907/15/2022 imagi ng/di agnos tic resul t No observ ation record ed. [email or web address] Not Available 07:07:48 01/31/2001/31/2024 CT, sinus es, w/o contr ast No observ ation record ed. [email or web address] [facility] [address], [place], [address], 02/01/2024 08:28:32 05/29/19 25 audio gram No observ ation record ed. BARCODE Not Available 2024 15:14:57 Result Notes None recorded. Problems Name Problem SNOMED Code Status Onset Date Resolution Date Notes Provider Name and Address Organization Details Recorded Time Closed fracture of nasal bones 75833410 Active 2022 Fracture of nasal bones, initial encounter for closed fracture; Note: Date Diagnosed : 07/21/2022 10:06 AM (S02.2XXA ) Not Available [facility] 4 02:14:15 Impacted cerumen in right ear 25533100470 23634 Active 2016 Impacted cerumen, right ear; Note: Date Diagnosed : 04/29/2016 4:34 PM (H61.21) Not Available [facility] 4 02:13:30 Allergic rhinitis caused by pollen 95868139 Active 2019 Allergy NOS due to pollen; Note: Date Diagnosed : 11/16/2019 11:51 AM (J30.1) Not Available [facility] 4 02:13:08 Impacted cerumen of bilateral ears 31751401707 61224 Active 2023 TATIANA DOLAN PA-C [address] [facility],[place] [address], [place], [address] , [facility] - [facility] [place] 4 14:04:01 Nasal congestio n 61514558 Active 2023 TATIANA DOLAN PA-C [address] [facility],[place] [address], [place], [address] , [place] - [facility] [place] 4 14:05:26 Allergic rhinitis 97662189 Active 2023 TATIANA DOLAN PA-C 100 [facility] [address], [place], [address] , [facility] - [facility] [place] 4 14:05:34 Seasonal allergic rhinitis 443750955 Active 2023 TATIANA DOLAN PA-C [address] [place],[address], [place], [address] , [facility] - [facility] [place] 4 14:05:34 Non-aller gic rhinitis 25790008160 1 Active 2023 TATIANA DOLAN PA-C [address],[place] [address], [place], [address] , [facility] - [facility] [place] 4 14:05:34 Abnormal auditory perceptio n 09676401 Active 2024 TAYLOR GUPTA AUD [address] [facility] [place] [address], [place], [address] , [facility] - [facility] 5 11:50:31 Problem Notes None recorded. Procedures Surgical History Date Name Laterality Status Provider Name and Address Organization Details Recorded Time 05/29/19 25 Air & Speech Audio with Tymps (57895, 72669 & 70485) completed JEAN CLAUDE RENTERIA [address] [facility],[place] [address], [place], [address], [facility] - [facility] 05/29/2024 11:49:44 01/03/20 24 Allergy Testing-Full completed ANA LILIA STEPHEN [address] [facility],[place] [address], [place], [address], [facility] 01/03/2024 11:15:19 12/27/19 24 Allergy Testing Modified- Quantitative Testing (MQT) Only completed ANA LILIA STEPHEN [address] [facility],[place] [address], [place], [address], [facility] 12/27/2023 15:09:31 Imaging Results Imaging Date Name Status LastModified by [facility] Details LastModified Time 07/15/2022 imaging/diagno stic result completed [email or web address] Information not available 12/01/2023 07:07:48 01/31/2024 CT, sinuses, w/o contrast completed ken [facility] [address] [facility] [address], [place], [address], 02/01/2024 08:28:32 05/29/2024 audiogram completed BARCODE Information no t available 05/29/2024 15:14:57 Procedure Notes None recorded. Medical Equipment None Reported. Allergies Allergen ID Allergen Name Allergen Category Reaction Reaction Severity Criticality Documentation Date Start Date Code Code System Note Provider Name and Address Organization Details Recorded Time 50129 penicilli n V potassium medicatio n other Not available Not available 08/24/202378165 5 RxNorm React ion: unkno wn, unspe cifie d;; Not Available [facility] 00:[facility]:23 Medications Name Sig [...] mg tablet 12/26 completed Medicati on ID: [id number] D uration Value: 10 Brand Name: predniso [...] e 137 mcg (0.1 %) nasal spray [place] 2 sprays twice a day by intranas [...] subcut kit 11/15 completed Medicati on ID: [id number] D uration Value: 28 Reason: () Brand [...] Updated DateTime 12/06/2023 190.5 cm 31.2 kg/m2 627610.09 g Violet Cohenos [facility] 12/06/2023 13:48:51 Date Recorded Body height Body mass index (BMI) Body weight Oxygen saturation Oxygen saturation in Arterial blood by Pulse oximetry Heart rate Systolic blood pressure Diastolic blood pressure Provider Name and Address Organization Details Last Updated DateTime 190.5 cm 30 kg/m2 510246. 17 g 99 % 99 % 63 /min 121 mm[Hg] 83 mm[Hg] ANA LILIA STEPHEN [address] [place] [address], [address] [place] [address] [facility] 14:29:13 Date Recorded Body height Body mass index (BMI) Body weight Provider Name and Address Organization Details Last Updated DateTime 05/29/2024 190.5 cm 29.4 kg/m2 235085.21 g Dianna Cantu [facility] 05/29/2024 11:17:54 Social History None recorded. Functional Status None recorded. Mental Status None recorded. Family History Nothing Reported. Medical History No medical history recorded. Past Encounters Encounter ID Performer Location Encounter Start Date Encounter Closed Date Diagnosis/Indication Diagnosis SNOMED-CT Code Diagnosis ICD10 Code Diagnosis Note [id number] CARO DUNCAN MD [facility] of [address] [address] 12/06/2023 13:31:09 12/06/2023 13:55:51 Nasal congestion 06085837 R09.81 [id number] ANA LILIA STEPHEN Allergy [address] [place] [address] [address] 12/27/2023 14:12:56 12/27/2023 15:26:25 Allergic rhinitis 24530857 J30.9 [id number] ANA LILIA STEPHEN Allergy [address] [place] [address] 01/03/2024 10:16:10 01/03/2024 10:17:15 Allergic rhinitis 57686296 J30.9 [id number] ARNEL CISNEROS MD [facility] 100 [facility] [place] [address] 05/29/2024 11:04:38 05/29/2024 12:04:22 Nasal congestion 15346935 R09.81 Allergic rhinitis 862361 04 J30.89 Abnormal a uditory perception 77855505 H93.299 Right Ear:Normal hearing with excellent speech [...] Enamorado Member ID Guarantor Name 12/06/2023 1 [facility] [id number] Tyler Flores Mccann [id number] 00 Tyler L Mccann 12/27/2023 1 [facility] [id number] Tyler L Mccann [id number] 00 Tyler L Mccann 01/03/2024 1 [facility] ([facility]) [id number] Tyler L Mccann [id number] 00 Tyler L Mccann 05/29/2024 1 [facility] [id number] Tyler L Mccann [id number] 00 Tyler L Mccann Notes Date Note [...] of sinus infections. CARO DUNCAN MD [address] [facility],[address], [address], [facility] 12/07/2023 16:32:07 05/29/2024 text/html 28-year-old male presents for review of allergy testing and CT sinus. He has been using Flonase daily without improvement. CT sinus was also ordered. He continues to have nasal congestion, sneezing, rhinorrhea, decreased sense of smell, and facial pressure. No history of recurrent sinusitis. Also notes decreased hearing bilaterally for a few years. ARNEL BUNN MD 100 [facility],[place] [address], [place], [address], [facility] 05/29/2024 17:08:31
--- OUTSIDE RECORDS SUMMARY | 2024-06-23 13:33 | XMS_ITS | Continuity of Care Document ---
Author Organization [place] - [facility], [facility] Address [address] [place] [address] Care Team Providers Care Asset Management Analyst Name Role Phone YARIEL PANDEY Primary Care Provider [phone] YARIEL VIZCARRA Primary Care Provider [phone] Assessment Encounter Date Assessment Date Assessment LastModified [...] mL injection , auto-inje ctor 2024 025 [facility]/Pharmacy #[id number], [address] [place], [address], 05/29/2024 12:32:14 azelastin e 137 mcg (0.1 %) nasal spray 2024 025 [facility]/Pharmacy #[id number], [address] [place], [address], 05/29/2024 12:34:07 Patient TargetsNo targets recorded. Patient [...] Recorded Time Closed fracture of nasal bones 06762412 Active 2022 Fracture of nasal bones, initial encounter for closed fracture; Note: Date Diagnosed : 07/21/2022 10:06 AM (S02.2XXA ) Not Available [facility] 4 02:14:15 Impacted cerumen in right ear 74114121741 78632 Active 2016 Impacted cerumen, right ear; Note: Date Diagnosed : 04/29/2016 4:34 PM (H61.21) Not Available [facility] 4 02:13:30 Allergic rhinitis caused by pollen 06960472 Active 2019 Allergy NOS due to pollen; Note: Date Diagnosed : 11/16/2019 11:51 AM (J30.1) Not Available [facility] 4 02:13:08 Impacted cerumen of bilateral ears 53461949139 79360 Active 2023 TATIANA DOLAN PA-C 100 [facility],[place] [address], [address] , [facility] - [facility] [place] 4 14:04:01 Nasal congestio n 28459351 Active 2023 TATIANA DOLAN PA-C [address] [place] [address],[place] [address], [place], [address] , [facility] - [facility] [place] 4 14:05:26 Allergic rhinitis 77106202 Active 2023 TATIANA DOLAN PA-C [address] [facility],[place] [address], [address] , [facility] - [facility] [place] 4 14:05:34 Seasonal allergic rhinitis 131009952 Active 2023 TATIANA DOLAN PA-C [address] [facility],[place] [address], [address] , [facility] - [facility] [place] 4 14:05:34 Non-aller gic rhinitis 51838127812 1 Active 2023 TATIANA DOLAN PA-C [address] [facility],[place] [address], [address] , [facility] 14:05:34 Abnormal auditory perceptio n 80034867 Active 2024 TAYLORVINNIE GUPTA, [facility] [address] [facility],[place] [address], [facility] [place], [address] , [facility] 11:50:31 Problem Notes None recorded. Procedures Surgical History Date Name Laterality Status Provider Name and Address Organization Details Recorded Time 05/29/19 25 Air & Speech Audio with Tymps (56973, 04400 & 24893) completed TAYLORALEXANDRO GUPTA [facility] [address] [facility],[place] [address], [place], [address], [facility] 05/29/2024 11:49:44 01/03/20 24 Allergy Testing-Full completed RYLEY BARDALES [facility] [address] [facility],[place] [address], [place], [address], [facility] 01/03/2024 11:15:19 12/27/19 24 Allergy Testing Modified- Quantitative Testing (MQT) Only completed RYLEY BARDALES [facility] [address] [facility],[place] [address], [place], [address], [facility] 12/27/2023 15:09:31 Imaging Results None recorded. Procedure Notes None recorded. Medical Equipment None Reported. Allergies Allergen ID Allergen Name Allergen Category Reaction Reaction Severity Criticality Documentation Date Start Date Code Code System Note Provider Name and Address Organization Details Recorded Time 88968 penicilli n V potassium medicatio n other [...] mg tablet 12/26 completed Medicati on ID: [id number] D uration Value: 10 Brand Name: predniso [...] e 137 mcg (0.1 %) nasal spray [place] 2 sprays twice a day by intranas [...] subcut kit 11/15 completed Medicati on ID: [id number] D uration Value: 28 Reason: () Brand [...] Updated DateTime 05/29/2024 190.5 cm 29.4 kg/m2 085763.21 g Dianna Cantu [place] - [facility] 05/29/2024 11:17:54 Social History None recorded. Functional Status None recorded. Mental Status None recorded. Family History Nothing Reported. Medical History No medical history recorded. Past Encounters Encounter ID Performer Location Encounter Start Date Encounter Closed Date Diagnosis/Indication Diagnosis SNOMED-CT Code Diagnosis ICD10 Code Diagnosis Note [id number] ARNEL CISNEROS MD [facility] [address] [place] [address] 05/29/2024 11:04:38 05/29/2024 12:04:22 Nasal congestion 81250317 R09.81 Allergic rhinitis 750849 04 J30.89 Abnormal a uditory perception 80196930 H93.299 Right Ear:Normal hearing with excellent speech [...] Enamorado Member ID Guarantor Name 05/29/2024 1 [facility] ([facility]) [id number] Tyler Mccann [id number] 00 Tyler Mccann Notes Date Note Type [...] for a few years. ARNEL BUNN MD [address] [place] [address], [address], [facility] - [facility] 05/29/2024 17:08:31
[2024-07-01 18:38] LABS: Lactoferrin, Fecal, Quant. <6.25 mcg/mL (<7.25)
== END 2024-06-23 11:43 | disposition home or self-care (01) ==
LOC: HO.LNP 11:42
PROVIDERS: Internal Medicine Gastroenterology; Visit Provider Nurse Practitioner Family
DX: Z00.00 Encounter for general adult medical examination without abnormal findings (principal); K51.50 Left sided colitis without complications; K50.90 Crohn's disease, unspecified, without complications
CPT/HCPCS: 81003; 82043; 82570; 83631

== ENCOUNTER 2024-07-07 10:05 | Outpatient (AMB) | payer OTHER, SELFPAY ==
--- NOTE | 2024-07-07 10:16 | MHC.OFFWIV ---
Intake Vital Signs 07/07/24 10:17 Weight 254 lb BP 140/90 H Blood Pressure Location Rt brachial Position Sitting Pulse 80 Pulse Source Pulse Oximeter Pulse Oximetry (%) 99 Oxygen Delivery Method Room Air Intake Visit Reasons: EP-low back pain & b/l knee pain Intake Note: Patient here for low back pain and bilat knee pain that is an ongoing issue. Patient Tobacco Use Status: Never used Tobacco Allergies penicillin V Allergy (Intermediate, Verified 07/07/24 10:16) rash Medication List - Last Reconciled 07/07/24 by Tiffanie Smith MD acetaminophen (Tylenol Extra Strength) 500 mg PO Q6H PRN bupropion HCl SR (Wellbutrin SR) 150 mg PO QAM 30 days hydroxyzine HCl 25 mg orally Take one tablet daily if needed for anxiety and take 1-2 before bedtime as needed PRN; 30 days ibuprofen 600 mg PO Q8H PRN lisdexamfetamine (Vyvanse) 30 mg PO QAM 30 days magnesium glycinate 87.5 tabs PO QID magnesium L-threonate mg PO melatonin 3 mg PO BEDTIME PRN miscellaneous medical supply (Blood Pressure Cuff) blood pressure checks daily and as needed large cuff please omeprazole 40 mg PO DAILY 90 days sucralfate (Carafate) 10 mL PO BID Do you need a note to return to daycare/school/sports/work: Yes HPI EP-low back pain & b/l knee pain HPI Details History The patient is a 29-year-old male presenting with low back pain and bilateral knee pain, primarily mechanical in nature, worsening over several years without a specific inciting event. Imaging from prior evaluations revealed degenerative changes at L5-S1 in the lumbar spine and tricompartmental degenerative arthritis in both knees. He is not responding adequately to rjxf-grn-qjfiwpv analgesics due to medication limitations associated with Crohn?s management. His work demands at a physical job exacerbate his symptoms, prompting the need for specific work-related restrictions. Problem List - Low Back Pain with Lumbar Degenerative Changes - Degenerative Arthritis of Both Knees - Crohn's Disease Patient Instructions - Obtain work limitation forms from the HR department and provide them to the primary care physician. - Continue using Tylenol for pain management and take ibuprofen sparingly due to medication interactions; consult the primary care provider for pain management advice. - Attend scheduled physical therapy sessions and discuss extending therapy to knees with the therapist or primary care provider. - Follow up with the primary care provider for further evaluation and management, including consideration of work restrictions as discussed. Restriction letter provided to patient Review of Systems - General: No fever no chills - Neurological: No headaches no dizziness - Ear nose throat: No sore throat no hearing difficulty no ear pain - Cardiovascular: No syncope, no chest pain, no palpitations - Gastrointestinal: No nausea vomiting or diarrhea Physical Exam General: No acute distress HEENT: No acute findings Neck: Supple Respiratory system: Able to talk in full sentences, no audible wheeze Cardiovascular: S1-S2 Gastrointestinal: No pain, history of Crohn's disease Extremities: Pain in both knees, mild to moderate tricompartmental degenerative arthritis [employer]: Alert awake oriented x3 motor sensory intact Skin: Normal turgor PFSH Medical History Anemia Crohn's disease ADHD (attention deficit hyperactivity disorder) 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 Mother Hypertension Maternal Grandfather Diabetes Stroke Other Anemia Social History Household Members: Friend(s) Housing: Apartment Are you a primary rn homecare to a significant other at home: No Do you presently have visiting nurse or other home services: No Alcohol intake: never Patient Tobacco Use Status: Never used Tobacco e-Cigarette/Vaping Use: Never Used Second Hand Smoke Exposure: No service: No Current occupational status: employed Current occupation: [employer] Cognitive needs: No Hearing needs: No Vision needs: No Physical Exam Vital Signs: Last Vital Signs Pulse 80 07/07/24 10:17 BP 140/90 H 07/07/24 10:17 Pulse Ox 99 07/07/24 10:17 Oxygen Delivery Method Room Air 07/07/24 10:17 Assessment & Plan Assessment & Plan (1) Fit to return to work with restrictions: Code(s): Z56.89 - Other problems related to employment (2) Internal derangement of both knees: Code(s): M23.91 - Unspecified internal derangement of right knee; M23.92 - Unspecified internal derangement of left knee (3) Degenerative joint disease (DJD) of lumbar spine: Code(s): M47.816 - Spondylosis without myelopathy or radiculopathy, lumbar region Qualifiers: Spinal osteoarthritis complication: without myelopathy or radiculopathy Qualified Code(s): M47.816 - Spondylosis without myelopathy or radiculopathy, lumbar region (4) Chronic back pain: Code(s): M54.9 - Dorsalgia, unspecified; G89.29 - Other chronic pain Qualifiers: Back pain location: low back pain Back pain laterality: bilateral Sciatica presence: without sciatica Qualified Code(s): M54.50 - Low back pain, unspecified; G89.29 - Other chronic pain (5) Chronic pain of both knees: Code(s): M25.561 - Pain in right knee; M25.562 - Pain in left knee; G89.29 - Other chronic pain (6) Crohn's disease: Code(s): K50.90 - Crohn's disease, unspecified, without complications Qualifiers: Digestive disease complication type: other complication Gastrointestinal tract location: unspecified location Qualified Code(s): K50.918 - Crohn's disease, unspecified, with other complication Plan History The patient is a 29-year-old male presenting with low back pain and bilateral knee pain, primarily mechanical in nature, worsening over several years without a specific inciting event. Imaging from prior evaluations revealed degenerative changes at L5-S1 in the lumbar spine and tricompartmental degenerative arthritis in both knees. He is not responding adequately to jtot-rla-zuetgiz analgesics due to medication limitations associated with Crohn?s management. His work demands at a physical job exacerbate his symptoms, prompting the need for specific work-related restrictions. Problem List - Low Back Pain with Lumbar Degenerative Changes - Degenerative Arthritis of Both Knees - Crohn's Disease Patient Instructions - Obtain work limitation forms from the HR department and provide them to the primary care physician. - Continue using Tylenol for pain management and take ibuprofen sparingly due to medication interactions; consult the primary care provider for pain management advice. - Attend scheduled physical therapy sessions and discuss extending therapy to knees with the therapist or primary care provider. - Follow up with the primary care provider for further evaluation and management, including consideration of work restrictions as discussed. Restriction letter provided to patient Orders: Orders PT Evaluation and Treatment Today M23.91 - Unspecified internal derangement of right knee, M23.92 - Unspecified internal derangement of left knee Coding Level of Care Code Est Pt Level 4 (05789) Diagnoses Fit to return to work with restrictions Z56.89 Internal derangement of both knees M23.91; M23.92 Spondylosis of lumbar region without myelopathy or radiculopathy M47.816 Spinal osteoarthritis complication: without myelopathy or radiculopathy Chronic bilateral low back pain without sciatica M54.50; G89.29 Back pain location: low back pain Back pain laterality: bilateral Sciatica presence: without sciatica Chronic pain of both knees M25.561; M25.562; G89.29 Crohn's disease with other complication, unspecified gastrointestinal tract location K50.918 Digestive disease complication type: other complication Gastrointestinal tract location: unspecified location
[2024-07-07 10:17] VITALS: BP 140/90; PULSE 80; O2SAT 99
== END 2024-07-07 11:00 | disposition home or self-care (01) ==
PROVIDERS: PCP Nurse Practitioner Family; Visit Provider Internal Medicine
DX: Z56.89 Other problems related to employment (principal); M23.91 Unspecified internal derangement of right knee; M23.92 Unspecified internal derangement of left knee; M47.816 Spondylosis without myelopathy or radiculopathy, lumbar region; M54.50 Low back pain, unspecified; G89.29 Other chronic pain; M25.561 Pain in right knee; M25.562 Pain in left knee; K50.918 Crohn's disease, unspecified, with other complication

== ENCOUNTER → 2024-07-07 10:05 | Outpatient (BNVA) | payer OTHER, SELFPAY | PROVIDERS: PCP Nurse Practitioner Family; Visit Provider Internal Medicine | DX: M23.91 Unspecified internal derangement of right knee (principal); M23.92 Unspecified internal derangement of left knee; M47.816 Spondylosis without myelopathy or radiculopathy, lumbar region; M54.50 Low back pain, unspecified; G89.29 Other chronic pain; M25.561 Pain in right knee; M25.562 Pain in left knee; K50.918 Crohn's disease, unspecified, with other complication; Z56.89 Other problems related to employment | CPT/HCPCS: 99212 ==

== ENCOUNTER 2024-07-10 09:34 | Outpatient (AMB) | payer OTHER, SELFPAY ==
--- NOTE | 2024-07-10 09:41 | A.OFFPC_ITS ---
Vital Signs 07/10/24 09:47 Height 6 ft 3 in Weight 256 lb 8 oz BMI 32.1 BP 136/67 Blood Pressure Location Rt brachial Position Sitting Respiration 16 Pulse 67 Pulse Source Pulse Oximeter Temp 98.2 F Temp Source Oral Pulse Oximetry (%) 99 Oxygen Delivery Method Room Air Intake Visit Reasons: 2 wks anxiety, depression, sleep disturbance Intake Note: patient here for 2 wks follow up for anxiety, depression, and sleep disturnance Mica Paster Required: No Allergies penicillin V Allergy (Intermediate, Verified 07/10/24 09:46) rash Tobacco use date assessed: 07/10/24 Dental Screening Dental Screen Date: 07/10/24 Did you have a dental visit in the last 12 months?: No Did you have a dental problem in the last 6 months where you did not have access to dental care?: No Was dental information given to patient?: No (I already gave form) HPI HPI Comments History of Present Illness Details 29-year-old male presents for anxiety, d epression, and sleep disturbance follow-up. He admits to taking hydroxyzine, and Vyvanse as prescribed without adverse reactions. He notes that Bupropion was not effective. However, he started fermented diet which has been helping with his mood, sleep, and pain/inflammation. He stopped taking Bupropion after 1 week of starting the medication. He notes that his anxiety and depressive symptoms have recently been improved. He has been sleeping better, and his joints pain have improved. He has history of chronic back pain and bilateral knee pain. He recently schedule appointment with [facility] and has an appointment next month for PT of his lumbar spine. No acute symptoms. 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 Mother Hypertension Maternal Grandfather Diabetes Stroke Other Anemia Social History Household Members: Friend(s) Housing: Apartment Are you a primary nurse healthcare manager to a significant other at home: No Do you presently have visiting nurse or other home services: No Alcohol intake: never Patient Tobacco Use Status: Never used Tobacco e-Cigarette/Vaping Use: Never Used Second Hand Smoke Exposure: No service: No Current occupational status: employed Current occupation: [employer], [employer] Cognitive needs: No Hearing needs: No Vision needs: No Questionnaire PHQ-9 Over the last 2 weeks, how often have you been bothered by any of the following problems? 1. Little interest or pleasure in doing things: more than half the days 2. Feeling down, depressed, or hopeless: several days 3. Trouble falling or staying asleep, or sleeping too much: more than half the days 4. Feeling tired or having little energy: more than half the days 5. Poor appetite or overeating: several days 6. Feeling bad about yourself - or that you are a failure or have let yourself or your family down: several days 7. Trouble concentrating on things, such as reading the newspaper or watching television: more than half the days 8. Moving or speaking so slowly that other people could have noticed. Or the o pposite - being so fidgety or restless that you have been moving around a lot more than usual: several days 9. Thoughts that you would be better off or of hurting yourself in some way: not at all Total score: 12 Depression Screening Interpretation: Positive Depression Screening Follow-up: Existing condition and In treatment Depression Screening Done: Yes 78083 - PHQ-9 Billing: Yes Source: Developed by Drs. Sloan Almaraz, Molly Nelson, Chris Vazquez and colleagues, with an educational kulwinder from [employer]. Thrive Questionnaire Date Thrive assessed: 05/22/24 I am a: Patient What is your living situation today?: I have a steady place to live Within the past 12 months, did the food you bought not last and you didn't have the money to get more?: Never true Within the past 12 months, did you worry whether your food would run out before you got money to buy more?: Never true Do you have trouble paying for medicines?: No Do you have trouble getting transportation to medical appointments?: No Do you have trouble paying your heating and electricity bill?: No Do you have trouble taking care of your child, family member or friend?: No Do you have trouble with day-to-day activities such as bathing, preparing meals, shopping, managing finances, etc.?: Yes Are you currently unemployed and looking for a job?: No Are you interested in more education?: No Please select the resources that you would like help with: None THRIVE Score: 0 AUDIT C Alcohol Use Questionnaire (AUDIT-C) 1. How often do you have a drink containing alcohol?: Never Total Score: 0 Score Reviewed/Action Taken: Yes CHARLEEN-7 AMB Questionnaire CHARLEEN-7 Date CHARLEEN - 7 assessed: 07/10/24 Feeling nervous, anxious, or on edge: 1 = Several days Not being able to stop or control worryin = Several days Worrying too much about different things: 2 = More than half the days Trouble relaxin = More than half the days Being so restless that it is hard to sit still: 2 = More than half the days Becoming easily annoyed or irritable: 1 = Several days Feeling afraid as if something awful might happen: 0 = Not at all Total CHARLEEN-7 score (0-4 normal; 5-9 mild; 10-14 moderate; 15-21 severe): 9 Source: Developed by Drs. Sloan Almaraz, Molly Nelson, Chris Vazquez and colleagues, with an educational kulwinder from [employer]. CHARLEEN-7 Assessment Billing CHARLEEN-7 Assessment Tool: CHARLEEN-7 Assessment 43666 Review of Systems Const Details: Const Denies chills, Denies fatigue, Denies fever(s), Denies headache(s) and Denies weakness ENT Denies dizziness and Denies headache(s) Card Denies chest pain, Denies lightheadedness, Denies dyspnea and Denies other (Palpitations) Resp Denies cough, Denies dyspnea, Denies wheezing and Denies other ( shortness of breath) GI Denies abdominal pain, Denies melena, Denies hematochezia, Denies change in bowel habits, Denies dyspepsia and Denies nausea Denies hematuria and Denies dysuria Musc Reports as per HPI Skin/Breast Denies rash, Denies unusual bruising and Denies wounds Neuro Denies abnormal gait, Denies dizziness, Denies headache(s), Denies memory loss, Denies numbness, Denies Sensory deficit (Neuro), Denies tingling and Denies weakness Psych Denies anxiety, Denies depression, Denies memory loss Endo Denies cold intolerance, Denies fatigue, Denies heat intolerance, Denies polydipsia and Denies polyuria Aller/Immun Denies wheezing Physical exam (Primary Care) Vital Signs: Last Vital Signs Temp 98.2 F 07/10/24 09:47 Pulse 67 07/10/24 09:47 Resp 16 07/10/24 09:47 BP 136/67 07/10/24 09:47 Pulse Ox 99 07/10/24 09:47 Oxygen Delivery Method Room Air 07/10/24 09:47 BMI result Body Mass Index 32.1 Tobacco/Smoking Status: Tobacco use Status Tobacco use date assessed 07/10/24 07/10/24 09:50 Patient Tobacco Use Status Never used Tobacco 07/10/24 09:43 e-Cigarette/Vaping Use Never Used 07/10/24 09:43 PHQ-9: PHQ-9 Score PHQ-9: Total score 12 07/10/24 09:50 Depression Screening Interpretation: Positive Depression Screening Follow-up: Existing condition and In treatment Thrive Assessment: Date of Thrive Assessment Date Thrive assessed 05/22/24 07/10/24 09:43 Const Other: General: no acute distress and well developed Nutritional Appearance: well nourished Orientation/consciousness: patient oriented x3 HENMT Head: Yes normocephalic and Yes atraumatic Eyes General: appearance normal, both eyes and all related structures Pupils: Equal, round and reactive pupils present EOM: EOMs intact bilaterally Resp Effort & Inspection: normal respiratory effort Auscultation: clear to auscultation bilaterally Cardio Rate: regular rate Rhythm: regular rhythm Heart sounds: S1 normal heart sound present, S2 normal heart sound present, no gallops, no murmurs and no rubs GI Palpation (GI): No Abdominal aortic bruit present, Soft to palpation, nontender, No hepatosplenomegaly present and No Rebound tenderness present Auscultation: normal bowel sounds General: Yes no CVA tenderness Back/Spine/Pelvis Back: no CVA tenderness Cervical Spine: cervical ROM normal and No Cervical spine tenderness Thoracic/Lumbar Spine: thoraco-lumbar ROM normal, No pain with thoraco-lumbar ROM, No thoracic spinal tenderness and No lumbar spinal tenderness Extrem General: Yes normal to inspection, No edema and No calf tenderness Skin General: warm and dry. Normal skin color. Normal skin turgor Neuro General: patient oriented x3, gait normal and no focal neuro deficit Cranial nerves: Yes Equal, round and reactive pupils present Cognition (Neuro): normal cognition Gait exam (Neuro): Normal gait present Sensory Exam: No Sensory deficit (Neuro) Psych Appearance: grossly normal Affect: normal affect Attitude: cooperative Thought process: Normal thought process present Coding Level of Care Code Est Pt Level 4 (81314) Diagnoses CHARLEEN (generalized anxiety disorder) F41.1 Major depression F32.9 Sleep disturbance G47.9 Osteoarthritis of both knees M17.0 Degenerative arthritis of thoracic spine M47.814 Arthritis of lumbar spine M47.816 Additional Codes CHARLEEN-7 Assessment Billing - CHARLEEN-7 Assessment Tool: CHARLEEN-7 Assessment 16725 ([id number]) PHQ-9 - 77354 - PHQ-9 Billing: Yes ([id number]) Assessment & Plan Assessment & Plan (1) CHARLEEN (generalized anxiety disorder): Code(s): F41.1 - Generalized anxiety disorder Category: Medical Plan: Improved anxiety and depressive symptoms. Sleep is also improved. PHQ-9 and CHARLEEN-7 scores revealed moderate depression and mild anxiety respectively. Continue current treatment regimen. Routine exercise encouraged. Follow-up with physical therapy as planned. Return in 1 month for an extended physical exam or sooner with symptoms or concerns. Verbalized understanding and agreed with treatment plan. (2) Major depression: Code(s): F32.9 - Major depressive disorder, single episode, unspecified Category: Medical Plan: Plan as above. (3) Sleep disturbance: Code(s): G47.9 - Sleep disorder, unspecified Category: Medical Plan: Plan as above. (4) Osteoarthritis of both knees: Code(s): M17.0 - Bilateral primary osteoarthritis of knee Category: Medical Plan: Recent x-ray results reviewed with the patient. Mild to moderate arthritis of both knees. Mild degenerative spondylosis of the thoracic spine. Degenerative changes of L5-S. Advised to take Tylenol as prescribed for pain or discomfort. Warm/cool compresses encouraged. Follow-up with PT as planned. Advised to inform PT of referral for back and bilateral knee pain that were placed by his PCP on 06/21/2024. Follow-up with worsening or new symptoms. Verbalized understanding and agreed with treatment plan. (5) Degenerative arthritis of thoracic spine: Code(s): M47.814 - Spondylosis without myelopathy or radiculopathy, thoracic region Category: Medical Plan: Plan as above. (6) Arthritis of lumbar spine: Code(s): M47.816 - Spondylosis without myelopathy or radiculopathy, lumbar region Category: Medical Plan: Plan as above. Medications: Refilled lisdexamfetamine (Vyvanse) Partial Fill upon patient request. 30 mg PO QAM 30 days 30 caps 0RF Discontinued bupropion HCl SR (Wellbutrin SR) Discontinued Reason: Patient no longer taking 150 mg PO QAM 30 days 30 tabs 3RF
[2024-07-10 09:47] VITALS: BP 136/67; PULSE 67; RESP 16; TEMP 36.8; O2SAT 99; BMI 32.1
== END 2024-07-10 10:13 | disposition home or self-care (01) ==
LOC: HO.HMCFM 09:35
PROVIDERS: PCP Nurse Practitioner Family; Visit Provider Nurse Practitioner Family
DX: F41.1 Generalized anxiety disorder (principal); F32.9 Major depressive disorder, single episode, unspecified; G47.9 Sleep disorder, unspecified; M17.0 Bilateral primary osteoarthritis of knee; M47.814 Spondylosis without myelopathy or radiculopathy, thoracic region; M47.816 Spondylosis without myelopathy or radiculopathy, lumbar region

== ENCOUNTER → 2024-07-10 09:34 | Outpatient (BNVA) | payer OTHER, SELFPAY | PROVIDERS: PCP Nurse Practitioner Family; Visit Provider Nurse Practitioner Family | DX: F41.1 Generalized anxiety disorder (principal); F32.9 Major depressive disorder, single episode, unspecified; G47.9 Sleep disorder, unspecified; M17.0 Bilateral primary osteoarthritis of knee; M47.814 Spondylosis without myelopathy or radiculopathy, thoracic region; M47.816 Spondylosis without myelopathy or radiculopathy, lumbar region | CPT/HCPCS: 96127; 99212 ==

== ENCOUNTER 2024-07-12 14:08 | Outpatient (AMB) | payer OTHER, SELFPAY ==
[2024-07-12 14:24] VITALS: BMI 32.0
--- NOTE | 2024-07-12 14:24 | A.OFFVIS_ITS ---
Vital Signs 07/12/24 14:24 Height 6 ft 3 in Weight 256 lb BMI 32.0 Intake Visit Reasons: Follow up Intake Note: Patient presents follow up RLS medication. Labs in chart Allergies penicillin V Allergy (Intermediate, Verified 07/12/24 14:27) rash Medication List - Last Reconciled 07/12/24 by BHANU Meza acetaminophen (Tylenol Extra Strength) 500 mg PO Q6H PRN hydroxyzine HCl 25 mg orally Take one tablet daily if needed for anxiety and take 1-2 before bedtime as needed PRN; 30 days ibuprofen 600 mg PO Q8H PRN lisdexamfetamine (Vyvanse) 30 mg PO QAM 30 days magnesium glycinate 87.5 tabs PO QID magnesium L-threonate mg PO melatonin 3 mg PO BEDTIME PRN miscellaneous medical supply (Blood Pressure Cuff) blood pressure checks daily and as needed large cuff please omeprazole 40 mg PO DAILY 90 days sucralfate (Carafate) 10 mL PO BID HPI Comments Details: 28-yr-old male presents for follow-up visit of sleep apnea. Pt denies any significant interval medical history changes. Pt did have a f/u in-lab sleep study which was negative for sleep apnea w/ AHI 0.6/hr, but did show PLMS 20/h w/ PLMS arousal index of 3/hr. Continues to have difficulty initiating sleep, maintaining sleep, and when he does not sleep well he has daytime sleepiness/grogginess. He does endorse leg restlessness, urge to move, leg cramps at times- better if better hydrated, which typically start at bedtime. He may be hot when sleeping. Denies creepy crawling sensation. paresthesias, numbness. He does adhere to a good sleep hygiene routine. Bedtime is around 8-9pm Falls asleep around 8:30-9:30pm. Wake-up time is 5-6am Takes Vyvanse as soon as he wakes up- between 5-6am. If he has troubles to wake up during the day, for instance, it is after 3:30pm and he has not eaten yet today Sometimes may take melatonin. He did not tolerate Gabapentin, or interval trial of clonidine. He was recently dx'd w/ low testosterone, and plans to start supplement tx- through an outside provider group. He is curious about sunrise alrams, non-pharmacological tx options. He exercises a lot, walks 10,000 miles per day, when not working does resistance training. 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 Mother Hypertension Maternal Grandfather Diabetes Stroke Other Anemia Social History Household Members: Friend(s) Housing: Apartment Are you a primary youth care professional to a significant other at home: No Do you presently have visiting nurse or other home services: No Alcohol intake: never Patient Tobacco Use Status: Never used Tobacco e-Cigarette/Vaping Use: Never Used Second Hand Smoke Exposure: No service: No Current occupational status: employed Current occupation: [employer], [employer] Cognitive needs: No Hearing needs: No Vision needs: No Physical Exam Vital Signs: BMI result Body Mass Index 32.0 Const General: no acute distress Orientation/consciousness: patient oriented x3 Resp Effort & Inspection: normal respiratory effort and able to speak in complete sentences Neuro General: patient oriented x3 Psych Mental Status: mental status grossly normal Speech and movement: Clear speech present Attitude: cooperative Assessment & Plan Assessment & Plan (1) RLS (restless legs syndrome): Code(s): G25.81 - Restless legs syndrome Category: Medical (2) Periodic limb movements of sleep: Code(s): G47.61 - Periodic limb movement disorder Category: Medical (3) Insomnia: Code(s): G47.00 - Insomnia, unspecified Category: Medical Qualifiers: Insomnia type: unspecified Qualified Code(s): G47.00 - Insomnia, unspecified Plan Previous HST and In-lab PSG- no evidence of sleep apnea, however, results do show PLMS a/w arousals at least 3 x/hr. Reviewed labs- B12, folate, TSH, ferritin > 200- WNL. Supplementing testosterone to goal normal serum level. Discontinue Gabapentin 100-300mg qhs (may start 1-3 hrs prior to bedtime)- not tolerated May use melatonin prn- may have better effect if taken in evening rather than at bedtime. Information shared on RLS education resources, such as ?navigating life with restless legs syndrome info by Dr. Barrios. Information shared my nonpharmacological RLS treatment such as exercise, physical activity, stretching/yoga, we did blink, utilizing cotton sheets to minimize overheating. Continues to take Vyvanse as soon as wakes up in the morning. Encourage patient to make sure they eating and drinking sufficiently day- may benefit bringing protein bars or yogurt with him while working. Pt to follow-up in 3-6 months or sooner prn. Coding Level of Care Code Est Pt Level 4 (19627) Diagnoses RLS (restless legs syndrome) G25.81 Periodic limb movements of sleep G47.61 Insomnia, unspecified type G47.00 Insomnia type: unspecified
--- OUTSIDE RECORDS SUMMARY | 2024-07-12 16:53 | XMS_ITS | Data Portability ---
Author Organization [place] - [facility], Allergy Address [address] [address] Care Team Providers Care Java Developer With Security Clearance Name Role Phone YARIEL PANDEY Primary Care Provider [phone] YARIEL VIZCARRA Primary Care Provider [phone] Assessment Encounter Date Assessment Date Assessment LastModified [...] allergy testing, skin prick (PROC) 2023 024 Not available 12/27/2023 15:10:30 intraderm al allergy skin testing (PROC) 2023 024 [email or web address] Not available 12/27/2023 15:10:40 pulmonary function test procedure (PROC) 2023 024 [email or web address] Not available 12/27/2023 15:10:48 pulse oximetry (PROC) 2023 024 [email or web address] Not available 12/27/2023 15:15:49 Surgeries None recorded. Imaging CT, sinuses, w/o contrast 2023 024 [facility] [place], [address] [facility], [address], [place], [address], 01/31/2024 23:08:27 Medication Orders epinephri ne 0.3 mg/0.3 mL injection , auto-inje ctor 2024 025 [facility]armacy #[id number], [address] [place], [address], 05/29/2024 12:32:14 azelastin e 137 mcg (0.1 %) nasal spray 2024 025 [facility]/Pharmacy #[id number], [address] [place], [address], 05/29/2024 12:34:07 Patient TargetsNo targets recorded. Patient Instructions Encounter Date Encounter Id Patient Instructions Last Modified By Organization Details Last Modified Time 12/27/2023 [id number] Nursing Documentation for Allergy Testing: Ordering Provider [...] ? Written by: {{CARLOS Song, Jerry Waddell*}} [email or web address] Not available 12/27/2023 15:09:39 Reason for Referral None Reported. Results Created Date Observation Date Name Description Value Unit Range Abnormal Flag Note LastModifiedBy Organization Detail LastModifiedTime 12/01/1907/15/2022 imagi ng/di agnos tic resul t No observ ation record ed. [email or web address] Not Available 07:07:48 01/31/2001/31/2024 CT, sinus es, w/o contr ast No observ ation record ed. [email or web address] [facility] [address], [place], [address], 02/01/2024 08:28:32 05/29/19 25 audio gram No observ ation record ed. BARCODE Not Available 2024 15:14:57 Result Notes None recorded. Problems Name Problem SNOMED Code Status Onset Date Resolution Date Notes Provider Name and Address Organization Details Recorded Time Closed fracture of nasal bones 10613910 Active 2022 Fracture of nasal bones, initial encounter for closed fracture; Note: Date Diagnosed : 07/21/2022 10:06 AM (S02.2XXA ) Not Available [facility] 4 02:14:15 Impacted cerumen in right ear 28457645670 46926 Active 2016 Impacted cerumen, right ear; Note: Date Diagnosed : 04/29/2016 4:34 PM (H61.21) Not Available [facility] 4 02:13:30 Allergic rhinitis caused by pollen 28007484 Active 2019 Allergy NOS due to pollen; Note: Date Diagnosed : 11/16/2019 11:51 AM (J30.1) Not Available [facility] 4 02:13:08 Impacted cerumen of bilateral ears 19473424526 33438 Active 2023 TATIANA DOLAN PA-C [address] [facility],[place] [address], [place], [address] , [facility] [place] 4 14:04:01 Nasal congestio n 07752166 Active 2023 TATIANA DOLAN PA-C [address] [facility],[place] [address], [place], [address] , [place] - [facility] [place] 4 14:05:26 Allergic rhinitis 65772719 Active 2023 TATIANA DOLAN PA-C [address] [facility] [address], [place], [address] , [facility] - [facility] [place] 4 14:05:34 Seasonal allergic rhinitis 842451020 Active 2023 TATIANA DOLAN PA-C [address] [place], [place], [address] , [facility] - [facility] [place] 4 14:05:34 Non-aller gic rhinitis 78100368205 1 Active 2023 TATIANA DOLAN PA-C [address],[place] [address], [place], [address] , [facility] - [facility] [place] 4 14:05:34 Abnormal auditory perceptio n 84263261 Active 2024 TAYLOR GUPTA AUD [address] [facility] [place] [address], [place], [address] , [facility] - [facility] 5 11:50:31 Problem Notes None recorded. Procedures Surgical History Date Name Laterality Status Provider Name and Address Organization Details Recorded Time 05/29/19 25 Air & Speech Audio with Tymps (38429, 98482 & 09040) completed JEAN CLAUDE RENTERIA [address] [facility],[place] [address], [place], [address], [facility] - [facility] 05/29/2024 11:49:44 01/03/20 24 Allergy Testing-Full completed ANA LILIA STEPHEN [address] [facility],[place] [address], [place], [address], [facility] 01/03/2024 11:15:19 12/27/19 24 Allergy Testing Modified- Quantitative Testing (MQT) Only completed ANA LILIA STEPHEN [address] [facility],[place] [address], [place], [address], [facility] 12/27/2023 15:09:31 Imaging Results Imaging Date Name Status LastModified by [email or web address] [place] [facility] Details LastModified Time 07/15/2022 imaging/diagno stic result completed [email or web address] Information not available 12/01/2023 07:07:48 01/31/2024 CT, sinuses, w/o contrast completed ken [facility] [address] [facility] [address], [place], [address], 02/01/2024 08:28:32 05/29/2024 audiogram completed BARCODE Information no t available 05/29/2024 15:14:57 Procedure Notes None recorded. Medical Equipment None Reported. Allergies Allergen ID Allergen Name Allergen Category Reaction Reaction Severity Criticality Documentation Date Start Date Code Code System Note Provider Name and Address Organization Details Recorded Time 64148 penicilli n V potassium medicatio n other Not available Not available 08/24/202332217 5 RxNorm React ion: unkno wn, unspe cifie d;; Not Available [facility] 00:[facility]23 Medications Name Sig Start [...] mg tablet 12/26 completed Medicati on ID: [id number] D uration Value: 10 Brand Name: predniso [...] e 137 mcg (0.1 %) nasal spray Taylor 2 sprays twice a day by intranas [...] subcut kit 11/15 completed Medicati on ID: [id number] D uration Value: 28 Reason: () Brand [...] Updated DateTime 12/06/2023 190.5 cm 31.2 kg/m2 449954.09 g Violet Cohenos [facility] 12/06/2023 13:48:51 Date Recorded Body height Body mass index (BMI) Body weight Oxygen saturation Oxygen saturation in Arterial blood by Pulse oximetry Heart rate Systolic blood pressure Diastolic blood pressure Provider Name and Address Organization Details Last Updated DateTime 190.5 cm 30 kg/m2 295641. 17 g 99 % 99 % 63 /min 121 mm[Hg] 83 mm[Hg] ANA LILIA STEPHEN [address] [place] [address], [address] [place] [address] [facility] 14:29:13 Date Recorded Body height Body mass index (BMI) Body weight Provider Name and Address Organization Details Last Updated DateTime 05/29/2024 190.5 cm 29.4 kg/m2 303688.21 g Dianna Cantu [facility] 05/29/2024 11:17:54 Social History None recorded. Functional Status None recorded. Mental Status None recorded. Family History Nothing Reported. Medical History No medical history recorded. Past Encounters Encounter ID Performer Location Encounter Start Date Encounter Closed Date Diagnosis/Indication Diagnosis SNOMED-CT Code Diagnosis ICD10 Code Diagnosis Note [id number] CARO DUNCAN MD [facility] [address] [address] 12/06/2023 13:31:09 12/06/2023 13:55:51 Nasal congestion 32590937 R09.81 [id number] ANA LILIA STEPHEN Allergy [address] [place] [address] [address] 12/27/2023 14:12:56 12/27/2023 15:26:25 Allergic rhinitis 16408785 J30.9 [id number] ANA LILIA STEPHEN Allergy [address] [place] [address] 01/03/2024 10:16:10 01/03/2024 10:17:15 Allergic rhinitis 77979463 J30.9 [id number] ARNEL CISNEROS MD [facility] [address] [place] [address] 05/29/2024 11:04:38 05/29/2024 12:04:22 Nasal congestion 53774256 R09.81 Allergic rhinitis 637568 04 J30.89 Abnormal a uditory perception 94801170 H93.299 Right Ear:Normal hearing with excellent speech [...] Enamorado Member ID Guarantor Name 12/06/2023 1 [facility] [place] [id number] Tyler Flores Mccann [id number] 00 Tyler L Mccann 12/27/2023 1 [facility] [id number] Tyler L Mccann [id number] 00 Tyler L Mccann 01/03/2024 1 [facility] ([facility]) [id number] Tyler L Mccann [id number] 00 Tyler L Mccann 05/29/2024 1 [facility] [id number] Tyler L Mccann [id number] 00 Tyler L Mccann Notes Date Note [...] of sinus infections. CARO DUNCAN MD [address] [facility],[address], [address], [facility] 12/07/2023 16:32:07 05/29/2024 text/html 28-year-old male presents for review of allergy testing and CT sinus. He has been using Flonase daily without improvement. CT sinus was also ordered. He continues to have nasal congestion, sneezing, rhinorrhea, decreased sense of smell, and facial pressure. No history of recurrent sinusitis. Also notes decreased hearing bilaterally for a few years. ARNEL BUNN MD [address] [facility],[place] [address], [place], [address], [facility] 05/29/2024 17:08:31
== END 2024-07-12 15:40 | disposition home or self-care (01) ==
LOC: HO.HSMS 14:09
PROVIDERS: PCP Hospitalist; Visit Provider Nurse Practitioner Family
DX: G25.81 Restless legs syndrome (principal); G47.61 Periodic limb movement disorder; G47.00 Insomnia, unspecified
CPT/HCPCS: 99214

== ENCOUNTER → 2024-07-12 14:08 | Outpatient (BNVA) | payer OTHER, SELFPAY | PROVIDERS: PCP Hospitalist; Visit Provider Nurse Practitioner Family | DX: G25.81 Restless legs syndrome (principal); G47.61 Periodic limb movement disorder; G47.00 Insomnia, unspecified | CPT/HCPCS: 99212 ==

== ENCOUNTER 2024-08-02 11:32 | Outpatient (AMB) | payer OTHER, SELFPAY ==
--- NOTE | 2024-08-02 11:38 | AM.OFFWIN_ITS ---
Intake Vital Signs 08/02/24 11:41 Weight 255 lb BP 116/80 Blood Pressure Location Lt brachial Position Sitting Pulse 81 Pulse Source Pulse Oximeter Temp 98.0 F Temp Source Oral Pulse Oximetry (%) 98 Oxygen Delivery Method Room Air Intake Visit Reasons: EP SOB Intake Note: Patient here for SOB Patient Tobacco Use Status: Never used Tobacco Allergies penicillin V Allergy (Intermediate, Verified 08/02/24 11:41) rash Do you need a note to return to daycare/school/sports/work: No HPI HPI Comments History of Present Illness Details He presents to office with SOB this am PMH includes chrons, arthritis, anxiety He takes melatonin nightly He was breathing but felt like it was hard to get oxygen He said poor sleep quality He said he gets occasional headaches, fatigue upon waking Has seen a sleep specialist about this issue and had at home sleep study and a lab test and was told no hx of sleep apnea He is unsure if he snores Usual bedtime is 9am and wake up at 5am Sometimes he wakes in night to urinate States it sometimes is difficult to fall asleep He sees Carmen PCP in [place] HE said no SOB now. 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 Mother Hypertension Maternal Grandfather Diabetes Stroke Other Anemia Social History Household Members: Friend(s) Housing: Apartment Are you a primary child adolescent care to a significant other at home: No Do you presently have visiting nurse or other home services: No Alcohol intake: never Patient Tobacco Use Status: Never used Tobacco e-Cigarette/Vaping Use: Never Used Second Hand Smoke Exposure: No service: No Current occupational status: employed Current occupation: [employer] Cognitive needs: No Hearing needs: No Vision needs: No Review of Systems Const Denies chills, Reports fatigue, Denies fever(s), Reports headache(s) and Denies snoring (doesnt believe) Eyes Denies blurry vision ENT Denies dizziness, Denies otalgia, Reports headache(s), Denies nasal congestion and Denies sore throat Card Denies chest pain, Denies syncope, Denies rapid heart rate and Reports dyspnea (upon waking) Resp Denies cough, Reports dyspnea (upon waking) and Denies snoring (doesnt believe) GI Denies abdominal pain Neuro Denies dizziness, Denies syncope and Reports headache(s) Endo Reports fatigue Physical Exam Vital Signs: Last Vital Signs Temp 98.0 F 08/02/24 11:41 Pulse 81 08/02/24 11:41 BP 116/80 08/02/24 11:41 Pulse Ox 98 08/02/24 11:41 Oxygen Delivery Method Room Air 08/02/24 11:41 General: Non-toxic, NAD. Speaking full sentences. Skin: Warm dry throughout Eye: EOMI, PERRL HENT: Airway patent. Uvula midline. No pharyngeal erythema or edema. No LOAD TESTER. Bilateral canals clear. TM non-erythematous, non-bulging. No TM perforation or hemotympanum noted. Respiratory: CTA bilaterally. No wheezes, rales or rhonchi Cardiac: RRR. No murmur MSK: Full ROM extremities. Neurology: Alert. No aphasia or facial droop. Gait without abnormality Psych: Good mood and affect Assessment & Plan Assessment & Plan (1) Insomnia: Code(s): G47.00 - Insomnia, unspecified Qualifiers: Insomnia type: unspecified Qualified Code(s): G47.00 - Insomnia, unspecified Plan: Patient seen and evaluated. Vitals stable and lungs CTA He wants second opinion Discussed will send detailed message to his pcp for further management Labs reviewed from last month and neurology note viewed from this month Patient gave verbal understanding and had no additional questions or concerns at time of discharge All questions answered Coding Level of Care Code Est Pt Level 3 (42156) Diagnoses Insomnia, unspecified type G47.00 Insomnia type: unspecified
[2024-08-02 11:41] VITALS: BP 116/80; PULSE 81; TEMP 36.7; O2SAT 98
--- OUTSIDE RECORDS SUMMARY | 2024-08-02 13:56 | XMS_ITS | Data Portability ---
Author Organization [place] - [facility], Allergy Address [address] [address] Care Team Providers Care Cancer Researcher Name Role Phone YARIEL PANDEY Primary Care [...] discussed the risk of anaphylaxis with this. [email or web address] Not available 05/29/2024 12:35:44 Plan of Treatment Reminders Order Date Submit Date Provider Last Modified By Organization Details Last Modified Time Details Appointments Establish ed 15 2024 10:30A M TATIANA DOLAN PA-C Not available Not available Not available Lab None recorded. Referral None recorded. Procedures allergen immunothe rapy; multiple injection s (PROC) 2024 025 [email or web address] Not available 06/06/2024 12:50:31 allergy testing, skin prick (PROC) 2023 024 [email or web address] Not available 12/27/2023 15:10:30 intraderm al allergy skin testing (PROC) 2023 024 Not available 12/27/2023 15:10:40 pulmonary function test procedure (PROC) 2023 024 [email or web address] Not available 12/27/2023 15:10:48 pulse oximetry (PROC) 2023 024 [email or web address] Not available 12/27/2023 15:15:49 Surgeries None recorded. Imaging CT, sinuses, w/o contrast 2023 024 SHAHNAZ [facility] [place], [address], [address], [place], [address], 01/31/2024 23:08:27 Medication Orders epinephri ne 0.3 mg/0.3 mL injection , auto-inje ctor 2024 025 [id number] [address] [place], [address], 05/29/2024 12:32:14 azelastin e 137 mcg (0.1 %) nasal spray 2024 025 [id number], [address] [place], [address], 05/29/2024 12:34:07 Patient TargetsNo targets recorded. Patient Instructions Encounter Date Encounter Id Patient Instructions Last Modified By Organization Details Last Modified Time 12/27/2023 [id number] Nursing Documentation for Allergy Testing: Ordering Provider [...] No}} Other: ? ? ? Written by: {{Fernanda Falk, CARLOS Johnson, ANA LILIA Waddell*}} [email or web address] Not available 12/27/2023 15:09:39 Reason for Referral None Reported. Results Created Date Observation Date Name Description Value Unit Range Abnormal Flag Note LastModifiedBy Organization Detail LastModifiedTime 12/01/19 24 07/15/2022 imagi ng/di agnos tic resul t No observ ation record ed. [email or web address] Not Available 07:07:48 01/31/20 24 01/31/2024 CT, sinus es, w/o contr ast No observ ation record ed. ken [facility] [address], [place], [address], 02/01/2024 08:28:32 05/29/19 25 audio gram No observ ation record ed. BARCODE Not Available 2024 15:14:57 Result Notes None recorded. Problems Name Problem SNOMED Code Status Onset Date Resolution Date Notes Provider Name and Address Organization Details Recorded Time Closed fracture of nasal bones 78433428 Active 2022 Fracture of nasal bones, initial encounter for closed fracture; Note: Date Diagnosed : 07/21/2022 10:06 AM (S02.2XXA ) Not Available [facility] 4 02:14:15 Impacted cerumen in right ear 71526721623 38896 Active 2016 Impacted cerumen, right ear; Note: Date Diagnosed : 04/29/2016 4:34 PM (H61.21) Not Available [facility] 4 02:13:30 Allergic rhinitis caused by pollen 57597039 Active 2019 Allergy NOS due to pollen; Note: Date Diagnosed : 11/16/2019 11:51 AM (J30.1) Not Available [facility] 4 02:13:08 Impacted cerumen of bilateral ears 40588560481 06793 Active 2023 TATIANA DOLAN PA-C [address] [place] [address],[place] [address], [place], [address] , [facility] - [facility] 4 14:04:01 Nasal congestio n 95259202 Active 2023 TATIANA DOLAN PA-C [address] [place] [address],[place] [address], [place], [address] , [facility] - [facility] [place] 4 14:05:26 Allergic rhinitis 16655732 Active 2023 TATIANA DOLAN PA-C [address] [place] [address],[place] [address], [address] , [place] - [facility] [place] 4 14:05:34 Seasonal allergic rhinitis 937501965 Active 2023 TATIANA DOLAN PA-C [address] [place] [address],[place] [address], [place], [address] , [facility] - [facility] [place] 4 14:05:34 Non-aller gic rhinitis 23792303035 1 Active 2023 TATIANA DOLAN PA-C 100 [facility],[place] [address], [place], [address] , [facility] 4 14:05:34 Abnormal auditory perceptio n 43702179 Active 2024 TAYLOR GUPTA, AUD 100 [facility] 100, [place], [address] , [facility] 5 11:50:31 Problem Notes None recorded. Procedures Surgical History Date Name Laterality Status Provider Name and Address Organization Details Recorded Time 05/29/19 25 Air & Speech Audio with Tymps (62597, 91590 & 92161) completed TAYLOR GUPTA AUD 100 [facility],[place] [address], [place], [address], [facility] 05/29/2024 11:49:44 01/03/20 24 Allergy Testing-Full completed ANA LILIA STEPHEN 100 [facility],[place] [address], [place], [address], [facility] 01/03/2024 11:15:19 12/27/19 24 Allergy Testing Modified- Quantitative Testing (MQT) Only completed ANA LIILA STEPHEN 100 [facility],[place] [address], [place], [address], [facility] 12/27/2023 15:09:31 Imaging Results Imaging Date Name Status LastModified by [facility] Details LastModified Time 07/15/2022 imaging/diagno stic result completed [email or web address] Information not available 12/01/2023 07:07:48 01/31/2024 CT, sinuses, w/o contrast completed ken [facility] [address], [place], [address], 02/01/2024 08:28:32 05/29/2024 audiogram completed BARCODE Information no t available 05/29/2024 15:14:57 Procedure Notes None recorded. Medical Equipment None Reported. Allergies Allergen ID Allergen Name Allergen Category Reaction Reaction Severity Criticality Documentation Date Start Date Code Code System Note Provider Name and Address Organization Details Recorded Time 74503 penicilli n V potassium medicatio n other Not available Not available 08/24/202367330 5 RxNorm React ion: unkno wn, unspe cifie d;; Not Available [facility] 00:50:23 Medications Name Sig Start Date [...] mg tablet 12/26 completed Medicati on ID: [id number] D uration Value: 10 Brand Name: predniso [...] e 137 mcg (0.1 %) nasal spray [place] 2 sprays twice a day by intranas [...] Not Available Not Available No t Available Humira Pen Crohn's-U lc Colitis-H id Sup Starter 40 mg/0.8 mL subcut kit 11/15 completed Medicati on ID: [id number] D uration Value: 28 Reason: () Brand Name: Humira Pen Crohns-U C-HS Start Se nd Method: E-Prescr ibed Sub s Allowed: subs OK Medic ationGen ericName : Humira Pen Crohns-U C-HS Start Not Available Not [...] Updated DateTime 12/06/2023 190.5 cm 31.2 kg/m2 203289.09 g Violet Ramy [facility] 12/06/2023 13:48:51 Date Recorded Body height Body mass index (BMI) Body weight Oxygen saturation Oxygen saturation in Arterial blood by Pulse oximetry Heart rate Systolic blood pressure Diastolic blood pressure Provider Name and Address Organization Details Last Updated DateTime 190.5 cm 30 kg/m2 723753. 17 g 99 % 99 % 63 /min 121 mm[Hg] 83 mm[Hg] ANA LILIA STEPHEN [address] [place] [address], [address] [place] [address] [facility] 14:29:13 Date Recorded Body height Body mass index (BMI) Body weight Provider Name and Address Organization Details Last Updated DateTime 05/29/2024 190.5 cm 29.4 kg/m2 275433.21 g Dianna Pepe [facility] 05/29/2024 11:17:54 Social History None recorded. Functional Status None recorded. Mental Status None recorded. Family History Nothing Reported. Medical History No medical history recorded. Past Encounters Encounter ID Performer Location Encounter Start Date Encounter Closed Date Diagnosis/Indication Diagnosis SNOMED-CT Code Diagnosis ICD10 Code Diagnosis Note [id number] CARO DUNCAN MD ENTS of [address] [address] 12/06/2023 13:31:09 12/06/2023 13:55:51 Nasal congestion 11301724 R09.81 [id number] ANA LILIA STEPHEN Allergy [address] [place] [address] [address] 12/27/2023 14:12:56 12/27/2023 15:26:25 Allergic rhinitis 83927774 J30.9 [id number] RYLEY WADDELL, RMA Allergy 100 [facility] it 100 [place] [place] [address] 01/03/2024 10:16:10 01/03/2024 10:17:15 Allergic rhinitis 15113439 J30.9 [id number] ARNEL CISNEROS MD ENT[facility] of [facility] 100 [place] [address] 05/29/2024 11:04:38 05/29/2024 12:04:22 Nasal congestion 34693127 R09.81 Allergic rhinitis 680578 04 J30.89 Abnormal a uditory perception 84045912 H93.299 Right Ear:Normal hearing with excellent speech [...] En[employer] Member ID Guarantor Name 12/06/2023 1 [facility] CLARITY (O) [id number] Tyler L Mccann [id number] 00 Tyler L Mccann 12/27/2023 1 [facility] CLARITY (O) [id number] Tyler L Mccann [id number] 00 Tyler L Mccann 01/03/2024 1 [facility] CLARITY (O) [id number] Tyler L Mccann [id number] 00 Tyler L Mccann 05/29/2024 1 [facility] CLARITY (O) [id number] Tyler L Mccann [id number] 00 Tyler L Mccann Notes Date Note [...] of sinus infections. CARO DUNCAN MD 100 [facility],[address], [address], [facility] 12/07/2023 16:32:07 05/29/2024 text/html 28-year-old male presents for review of allergy testing and CT sinus. He has been using Flonase daily without improvement. CT sinus was also ordered. He continues to have nasal congestion, sneezing, rhinorrhea, decreased sense of smell, and facial pressure. No history of recurrent sinusitis. Also notes decreased hearing bilaterally for a few years. ARNEL BUNN MD 100 [facility],[place] [address], [place], [address], [facility] 05/29/2024 17:08:31
== END 2024-08-02 12:08 | disposition home or self-care (01) ==
PROVIDERS: PCP Hospitalist; Visit Provider Physician Assistant
DX: G47.00 Insomnia, unspecified (principal)

== ENCOUNTER → 2024-08-02 11:32 | Outpatient (BNVA) | payer OTHER, SELFPAY | PROVIDERS: PCP Hospitalist; Visit Provider Physician Assistant | DX: G47.00 Insomnia, unspecified (principal) | CPT/HCPCS: 99212 ==

== ENCOUNTER 2024-08-07 07:51 | Outpatient (REF) | payer OTHER, SELFPAY ==
[2024-08-07 12:05] LABS: Influenza A PCR NEGATIVE (Negative); Influenza B PCR NEGATIVE (Negative); Resp Syncy Virus RNA Qual PCR NEGATIVE (Negative); SARS COV2 PCR INHOUSE NEGATIVE (Negative)
== END 2024-08-07 07:52 | disposition home or self-care (01) ==
LOC: HO.LAB 07:51
PROVIDERS: PCP Nurse Practitioner Family; Visit Provider Nurse Practitioner Family
DX: Z00.01 Encounter for general adult medical examination with abnormal findings (principal); F41.1 Generalized anxiety disorder; F32.9 Major depressive disorder, single episode, unspecified; F90.9 Attention-deficit hyperactivity disorder, unspecified type; G47.9 Sleep disorder, unspecified; J06.9 Acute upper respiratory infection, unspecified; M54.50 Low back pain, unspecified; G89.29 Other chronic pain
CPT/HCPCS: 0241U; 96127; 96160; 99212; 99395

== ENCOUNTER 2024-08-07 07:51 | Outpatient (AMB) | payer OTHER, SELFPAY ==
--- OUTSIDE RECORDS SUMMARY | 2024-08-07 07:54 | XMS_ITS | Data Portability ---
Author Organization [place] - [facility], Allergy Address [address] [address] Care Team Providers Care Packaging Assembler Name Role Phone YARIEL PANDEY Primary Care Provider [phone] YARIEL VIZCARRA Primary Care Provider [phone] Assessment Encounter Date Assessment Date Assessment LastModified [...] discussed the risk of anaphylaxis with this. [email or web address] Not available 05/29/2024 12:35:44 Plan of Treatment [...] pulmonary function test procedure (PROC) 2023 024 Not available 12/27/2023 15:10:48 pulse oximetry (PROC) 2023 024 [email or web address] Not available 12/27/2023 15:15:49 Surgeries None recorded. Imaging CT, sinuses, w/o contrast 2023 024 SHAHNAZ [facility] [place], [address], [address], [place], [address], 01/31/2024 23:08:27 Medication Orders epinephri ne 0.3 mg/0.3 mL injection , auto-inje ctor 2024 025 [id number], [address] [place], [address], 05/29/2024 12:32:14 azelastin e 137 mcg (0.1 %) nasal spray 2024 025 [id number], [address] [place], [address], 05/29/2024 12:34:07 Patient TargetsNo targets recorded. Patient Instructions Encounter Date Encounter Id Patient Instructions Last Modified By Organization Details Last Modified Time 12/27/2023 [id number] Nursing Documentation for Allergy Testing: Ordering Provider [...] {{Fernanda Falk, CARLOS Johnson, ANA LILIA Waddell*}} [email or web address] Not available 12/27/2023 15:09:39 Reason for Referral [...] ken [facility] [place] [facility] [address], [place], [address], 02/01/2024 08:28:32 05/29/19 25 audio gram No observ ation record ed. BARCODE Not Available 2024 15:14:57 Result Notes None recorded. Problems Name Problem SNOMED Code Status Onset Date Resolution Date Notes Provider Name and Address Organization Details Recorded Time Closed fracture of nasal bones 63132496 Active 2022 Fracture of nasal bones, initial encounter for closed fracture; Note: Date Diagnosed : 07/21/2022 10:06 AM (S02.2XXA ) Not Available [facility] 4 02:14:15 Impacted cerumen in right ear 87124871056 71009 Active 2016 Impacted cerumen, right ear; Note: Date Diagnosed : 04/29/2016 4:34 PM (H61.21) Not Available [facility] 4 02:13:30 Allergic rhinitis caused by pollen 38146291 Active 2019 Allergy NOS due to pollen; Note: Date Diagnosed : 11/16/2019 11:51 AM (J30.1) Not Available [facility] 4 02:13:08 Impacted cerumen of bilateral ears 85246499421 20379 Active 2023 TATIANA DOLAN PA-C [address] [place] [address],[place] [address], [place], [address] , [facility] - [facility] 4 14:04:01 Nasal congestio n 05715643 Active 2023 TATIANA DOLAN PA-C [address] [place] [address],[place] [address], [place], [address] , [facility] - [facility] [place] 4 14:05:26 Allergic rhinitis 43759574 Active 2023 TATIANA DOLAN PA-C [address] [place] [address],[place] [address], [address] , [place] - [facility] [place] 4 14:05:34 Seasonal allergic rhinitis 272156038 Active 2023 TATIANA DOLAN PA-C [address] [place] [address],[place] [address], [place], [address] , [facility] - [facility] [place] 4 14:05:34 Non-aller gic rhinitis 92376392475 1 Active 2023 TATIANA DOLAN PA-C 100 [facility],[place] [address], [place], [address] , [facility] 4 14:05:34 Abnormal auditory perceptio n 05280485 Active 2024 TAYLOR GUPTA, AUD 100 [facility] 100, [place], [address] , [facility] 5 11:50:31 Problem Notes None recorded. Procedures Surgical History Date Name Laterality Status Provider Name and Address Organization Details Recorded Time 05/29/19 25 Air & Speech Audio with Tymps (18216, 52026 & 41157) completed TAYLOR GUPTA AUD 100 [facility],[place] [address], [place], [address], [facility] 05/29/2024 11:49:44 01/03/20 24 Allergy Testing-Full completed ANA LILIA STEPHEN 100 [facility],[place] [address], [place], [address], [facility] 01/03/2024 11:15:19 12/27/19 24 Allergy Testing Modified- Quantitative Testing (MQT) Only completed ANA LILIA STEPHEN 100 [facility],[place] [address], [place], [address], [facility] 12/27/2023 15:09:31 Imaging Results Imaging Date Name Status LastModified by [facility] Details LastModified Time 07/15/2022 imaging/diagno stic result completed [email or web address] Information not available 12/01/2023 07:07:48 01/31/2024 CT, sinuses, w/o contrast completed ken [facility] [address], [place], [address], 02/01/2024 08:28:32 05/29/2024 audiogram completed BARCODE Information no t available 05/29/2024 15:14:57 Procedure Notes None recorded. Medical Equipment None Reported. Allergies Allergen ID Allergen Name Allergen Category Reaction Reaction Severity Criticality Documentation Date Start Date Code Code System Note Provider Name and Address Organization Details Recorded Time 63820 penicilli n V potassium medicatio n other Not available Not available 08/24/202360277 5 RxNorm React ion: unkno wn, unspe cifie d;; Not Available [facility] 00:[facility]:23 Medications Name Sig Start Date Stop [...] mg tablet 12/26 completed Medicati on ID: [id number] D uration Value: 10 Brand Name: predniso [...] e 137 mcg (0.1 %) nasal spray [place] 2 sprays twice a day by intranas [...] subcut kit 11/15 completed Medicati on ID: [id number] D uration Value: 28 Reason: () Brand [...] Updated DateTime 12/06/2023 190.5 cm 31.2 kg/m2 943368.09 g Violet Ramy [facility] 12/06/2023 13:48:51 Date Recorded Body height Body mass index (BMI) Body weight Oxygen saturation Oxygen saturation in Arterial blood by Pulse oximetry Heart rate Systolic blood pressure Diastolic blood pressure Provider Name and Address Organization Details Last Updated DateTime 190.5 cm 30 kg/m2 905781. 17 g 99 % 99 % 63 /min 121 mm[Hg] 83 mm[Hg] ANA LILIA STEPHEN [address] [place] [address], [address] [place] [address] [facility] 14:29:13 Date Recorded Body height Body mass index (BMI) Body weight Provider Name and Address Organization Details Last Updated DateTime 05/29/2024 190.5 cm 29.4 kg/m2 225168.21 g Dianna Pepe [facility] 05/29/2024 11:17:54 Social History None recorded. Functional Status None recorded. Mental Status None recorded. Family History Nothing Reported. Medical History No medical history recorded. Past Encounters Encounter ID Performer Location Encounter Start Date Encounter Closed Date Diagnosis/Indication Diagnosis SNOMED-CT Code Diagnosis ICD10 Code Diagnosis Note [id number] CARO DUNCAN MD ENT[facility] of [address] [address] 12/06/2023 13:31:09 12/06/2023 13:55:51 Nasal congestion 31751607 R09.81 [id number] ANA LILIA STEPHEN Allergy [address] [place] [address] [address] 12/27/2023 14:12:56 12/27/2023 15:26:25 Allergic rhinitis 14899430 J30.9 [id number] RYLEY WADDELL, RMA Allergy 100 [facility] it 100 [place] [address] 01/03/2024 10:16:10 01/03/2024 10:17:15 Allergic rhinitis 35686734 J30.9 [id number] ARNEL CISNEROS MD ENT[facility] of [facility] 100 [place] [address] 05/29/2024 11:04:38 05/29/2024 12:04:22 Nasal congestion 33744473 R09.81 Allergic rhinitis 647686 04 J30.89 Abnormal a uditory perception 42167365 H93.299 Right Ear:Normal hearing with excellent speech [...] Enamorado Member ID Guarantor Name 12/06/2023 1 [facility] CLARITY (O) [id number] Tyler L Mccann [id number] 00 Tyler L Mccann 12/27/2023 1 [facility] CLAR[facility] (O) [id number] Tyler L Mccann [id number] 00 Tyler L Mccann 01/03/2024 1 [facility] CLAR[facility] (O) [id number] Tyler L Mccann [id number] 00 Tyler L Mccann 05/29/2024 1 [facility] CL[facility] (O) [id number] Tyler L Mccann [id number] 00 Tyler L Mccann Notes Date Note [...] of sinus infections. CARO DUNCAN MD 100 [facility],[address], [address], [facility] 12/07/2023 16:32:07 05/29/2024 text/html 28-year-old male presents for review of allergy testing and CT sinus. He has been using Flonase daily without improvement. CT sinus was also ordered. He continues to have nasal congestion, sneezing, rhinorrhea, decreased sense of smell, and facial pressure. No history of recurrent sinusitis. Also notes decreased hearing bilaterally for a few years. ARNEL BUNN MD 100 [facility],[place] [address], [place], [address], [facility] 05/29/2024 17:08:31
[2024-08-07 08:04] VITALS: BP 130/81; PULSE 75; RESP 16; TEMP 37.2; O2SAT 98; BMI 32.5
--- NOTE | 2024-08-07 08:04 | MHC.PC.OV ---
Vital Signs 08/07/24 08:04 Height 6 ft 3 in Weight 260 lb 4 oz BMI 32.5 BP 130/81 Blood Pressure Location Lt brachial Position Sitting Respiration 16 Pulse 75 Pulse Source Pulse Oximeter Temp 98.9 F Temp Source Oral Pulse Oximetry (%) 98 Oxygen Delivery Method Room Air Intake Visit Reasons: 1 mos CPE Intake Note: patient here for CPE Can Labeler Required: No Allergies penicillin V Allergy (Intermediate, Verified 08/07/24 08:25) rash Medication List - Last Reconciled 08/07/24 by Neel Kothari CNP acetaminophen (Tylenol Extra Strength) 500 mg PO Q6H PRN hydroxyzine HCl 25 mg orally Take one tablet daily if needed for anxiety and take 1-2 before bedtime as needed PRN; 30 days ibuprofen 600 mg PO Q8H PRN lisdexamfetamine (Vyvanse) 30 mg PO QAM 30 days magnesium glycinate 87.5 tabs PO QID magnesium L-threonate mg PO melatonin 3 mg PO BEDTIME PRN miscellaneous medical supply (Blood Pressure Cuff) blood pressure checks daily and as needed large cuff please omeprazole 40 mg PO DAILY 90 days [Pentadeca Arginate (Pda) 500 mcg PO DAILY] sucralfate (Carafate) 10 mL PO BID testosterone cypionate 140 mg IM QWEEK Tobacco use date assessed: 08/07/24 Dental Screening Dental Screen Date: 08/07/24 Did you have a dental visit in the last 12 months?: No Did you have a dental problem in the last 6 months where you did not have access to dental care?: No Was dental information given to patient?: Yes HPI HPI Comments History of Present Illness Details 29-year-old male presents for an extended physical exam. He admits to taking his medications as prescribed without adverse reactions. Acute issue(s) - He reports runny nose, ear and nasal congestion, sore throat, head ache, fasting for the past 4-5 days. He has been taking mucinex with some relief. He notes positive sick contact with a coworker. - Anxiety and depression: Reports controlled symptoms Past Medical History - Hypertension (not on meds), Crohn's, OA of both knees, arthritis of thoracic and lumbar spine, scoliosis, RLS, insomnia, ED, obesity, ADHD, CHARLEEN, MDD Social History - Nonsmoker. Does not vape. Drinks alcohol once a year. Denies recreational drug use - Has been making healthy dietary choices. Exercises routinely. Difficulty falling and staying asleep, sleeps an average of 7 hours; he drinks 3 cups of coffee daily Health maintenance - Last eye exam was in 2019: Normal. Referred to Ophthalmology for routine eye care - Last dental visit was in 2019; encouraged to schedule an appointment with his dentist for routine dental care. - Last Tdap was in 08/19/2023 - Has not been vaccinated for the flu this season; declines vaccination Specialists - [facility] [place] gastroenterology - [facility] sleep medicine - [facility] [place] Psychiatry Outpatient Consultation Service [facility] Medical History Anemia Crohn's disease ADHD (attention deficit hyperactivity disorder) 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 Mother Hypertension Maternal Grandfather Diabetes Stroke Other Anemia Social History Household Members: Friend(s) Housing: Apartment Are you a primary wound care technician to a significant other at home: No Do you presently have visiting nurse or other home services: No Alcohol intake: never Patient Tobacco Use Status: Never used Tobacco e-Cigarette/Vaping Use: Never Used Second Hand Smoke Exposure: No service: No Current occupational status: employed Current occupation: [employer] Cognitive needs: No Hearing needs: No Vision needs: No Questionnaire PHQ-9 Over the last 2 weeks, how often have you been bothered by any of the following problems? 1. Little interest or pleasure in doing things: several days 2. Feeling down, depressed, or hopeless: several days 3. Trouble falling or staying asleep, or sleeping too much: nearly every day 4. Feeling tired or having little energy: more than half the days 5. Poor appetite or overeating: several days 6. Feeling bad about yourself - or that you are a failure or have let yourself or your family down: several days 7. Trouble concentrating on things, such as reading the newspaper or watching television: several days 8. Moving or speaking so slowly that other people could have noticed. Or the opposite - being so fidgety or restless that you have been moving around a lot more than usual: several days 9. Thoughts that you would be better off or of hurting yourself in some way: not at all Total score: 11 Depression Screening Interpretation: Positive Depression Screening Follow-up: Existing condition Depression Screening Done: Yes 93490 - PHQ-9 Billing: Yes Source: Developed by Drs. Sloan Almaraz, Molly Nelson, Chris Vazquez and colleagues, with an educational kulwinder from [employer]. Thrive Questionnaire Date Thrive assessed: 08/07/24 I am a: Patient What is your living situation today?: I have a steady place to live Within the past 12 months, did the food you bought not last and you didn't have the money to get more?: Never true Within the past 12 months, did you worry whether your food would run out before you got money to buy more?: Never true Do you have trouble paying for medicines?: No Do you have trouble getting transportation to medical appointments?: No Do you have trouble paying your heating and electricity bill?: No Do you have trouble taking care of your child, family member or friend?: No Do you have trouble with day-to-day activities such as bathing, preparing meals, shopping, managing finances, etc.?: Yes Are you currently unemployed and looking for a job?: No Are you interested in more education?: No Please select the resources that you would like help with: None THRIVE Score: 0 AUDIT C Alcohol Use Questionnaire (AUDIT-C) 1. How often do you have a drink containing alcohol?: Monthly or less 2. How many drinks containing alcohol do you have on a typical day when you are drinking?: 1 or 2 3. How often do you have six or more drinks on one occasion?: Never Total Score: 1 Score Reviewed/Action Taken: Yes CHARLEEN-7 AMB Questionnaire CHARLEEN-7 Date CHARLEEN - 7 assessed: 08/07/24 Feeling nervous, anxious, or on edge: 1 = Several days Not being able to stop or control worryin = Several days Worrying too much about different things: 1 = Several days Trouble relaxin = Several days Being so restless that it is hard to sit still: 2 = More than half the days Becoming easily annoyed or irritable: 1 = Several days Feeling afraid as if something awful might happen: 1 = Several days Total CHARLEEN-7 score (0-4 normal; 5-9 mild; 10-14 moderate; 15-21 severe): 8 Source: Developed by Drs. Sloan Almaraz, Molly Nelson, Chris Vazquez and colleagues, with an educational kulwinder from [employer]. CHARLEEN-7 Assessment Billing CHARLEEN-7 Assessment Tool: CHARLEEN-7 Assessment 20461 ACT Questionnaire In the past 4 weeks, how much of the time did your asthma keep you from getting as much done at work, school or at home?: Some of the time During the past 4 weeks, how often have you had shortness of breath?: 3-6 times a week During the past 4 weeks, how often did your asthma symptoms wake you up at night or earlier than usual in the morning?: 4 or more nights a week During the past 4 weeks, how often have you had to use your rescue inhaler or nebulizer medication?: Once a week or less How would you rate your asthma control during the past 4 weeks?: Poorly controlled ACT Interpretation: Positive Score: 13 Review of Systems Const Details: Denies chills, Reports fatigue, Denies fever(s), Reports headache(s) and Denies weakness HEENT Denies change in vision, Denies dizziness, Reports headache(s), Denies hearing loss, Reports nasal congestion, Denies sinus pain, Denies sinus pressure and Reports sore throat Card Denies chest pain, Denies lightheadedness, Denies dyspnea and Denies other (palpitations) Resp Denies cough, Denies dyspnea and Denies wheezing GI Denies abdominal pain, Denies melena, Denies hematochezia, Denies change in bowel habits, Denies dyspepsia and Denies nausea Denies hematuria and Denies dysuria Musc Denies abnormal gait, Denies myalgias, Denies arthralgias, Denies numbness and Denies tingling Skin/Breast Denies rash, Denies unusual bruising and Denies wounds Neuro Denies abnormal gait, Denies dizziness, Reports headache(s), Denies memory loss, Denies numbness, Denies Sensory deficit (Neuro), Denies tingling and Denies weakness Psych Denies anxiety, Denies depression and Denies memory loss Endo Denies cold intolerance, Denies fatigue, Denies heat intolerance, Denies polydipsia and Denies polyuria Niall/Lymph Denies easy bleeding and Denies easy bruising Aller/Immun Denies wheezing Physical exam (Primary Care) Vital Signs: Last Vital Signs Temp 98.9 F 08/07/24 08:04 Pulse 75 08/07/24 08:04 Resp 16 08/07/24 08:04 Pulse Ox 98 08/07/24 08:04 Oxygen Delivery Method Room Air 08/07/24 08:04 Tobacco/Smoking Status: Tobacco use Status Tobacco use date assessed 08/07/24 08/07/24 08:08 Patient Tobacco Use Status Never used Tobacco 08/07/24 08:08 e-Cigarette/Vaping Use Never Used 08/07/24 08:08 Depression Screening Interpretation: Positive Depression Screening Follow-up: Existing condition Thrive Assessment: Date of Thrive Assessment Date Thrive assessed 08/07/24 08/07/24 08:08 Const Other: General: no acute distress, well developed, alert and awake Nutritional Appearance: well nourished Orientation/consciousness: patient oriented x3 HENMT Head: Yes normocephalic and Yes atraumatic Ears: hearing grossly normal bilaterally and TM's normal bilaterally General nose exam: Normal external nose present and Normal nares present Mouth: Normal oral and palatal mucosa present and moist mucous membranes Teeth and gingiva: dentition normal Throat: Yes oropharynx normal Eyes Pupils: Equal, round and reactive pupils present and Pupil accommodation reflex normal EOM: EOMs intact bilaterally Neck Neck: Yes normal visual inspection, Yes no lymphadenopathy and Yes trachea midline Thyroid: Thyroid normal Carotids: no bruits Lymphatic: no lymphadenopathy noted Chest Chest palpation & inspection: normal inspection of the chest Resp Effort & Inspection: normal respiratory effort Auscultation: clear to auscultation bilaterally Cardio Rate: regular rate Rhythm: regular rhythm Heart sounds: S1 normal heart sound present, S2 normal heart sound present, no gallops, no murmurs and no rubs Bruits: no abdominal aortic bruits and no carotid bruits GI Palpation (GI): No Abdominal aortic bruit present, Soft to palpation, nontender, No hepatosplenomegaly present and No Rebound tenderness present Auscultation: normal bowel sounds General: Yes no CVA tenderness Back/Spine/Pelvis Back: no CVA tenderness Cervical Spine: cervical ROM normal and No Cervical spine tenderness Thoracic/Lumbar Spine: thoraco-lumbar ROM normal, No pain with thoraco-lumbar ROM, thoracic spinal tenderness and lumbar spinal tenderness Skin General: warm and dry. Normal skin color. Normal skin turgor Lesions: no lesions Rashes: no rashes Trauma: no lacerations or abrasions Wounds: no wounds Nails: normal Neuro General: patient oriented x3, gait normal and CN's II-XI intact bilaterally Cranial nerves: Yes Equal, round and reactive pupils present Cognition (Neuro): normal cognition Gait exam (Neuro): Normal gait present Motor exam (neuro): 5/5 motor strength present throughout Sensory Exam: No Sensory deficit (Neuro) Deep tendon reflexes (DTR's): Right patellar reflex intensity grade: 2+ and Left patellar reflex intensity grade: 2+ Extrem General: Yes normal to inspection, No edema and No calf tenderness Psych Appearance: grossly normal Affect: normal affect Attitude: cooperative Thought process: Normal thought process present Coding Level of Care Code Est Pt Level 4 (60404) Est Pt Prev Care 18-39y(00387) Diagnoses Normal physical examination, routine Z00.00 CHARLEEN (generalized anxiety disorder) F41.1 Major depression F32.9 ADHD (attention deficit hyperactivity disorder) F90.9 Sleep disturbance G47.9 Viral upper respiratory illness J06.9 Chronic bilateral low back pain without sciatica M54.50; G89.29 Back pain location: low back pain Back pain laterality: bilateral Sciatica presence: without sciatica Eye exam, routine Z01.00 Additional Codes CHARLEEN-7 Assessment Billing - CHARLEEN-7 Assessment Tool: CHARLEEN-7 Assessment 25151 ([id number]) PHQ-9 - 37197 - PHQ-9 Billing: Yes ([id number]) Asthma Control Questionnaire - ACT Interpretation: Positive ([id number]) Assessment & Plan Assessment & Plan (1) Normal physical examination, routine: Code(s): Z00.00 - Encounter for general adult medical examination without abnormal findings Category: Medical Plan: No significant functional limitation noted. Continue current treatment regimen. Healthy diet and routine exercise encouraged. Follow-up in 3 months for anxiety, depression, and sleep disturbance. Return sooner with symptoms or concerns. Verbalized understanding and agreed with the plan. (2) CHARLEEN (generalized anxiety disorder): Code(s): F41.1 - Generalized anxiety disorder Category: Medical Plan: Reports controlled anxiety and depressive symptoms. He notes sleep disturbances. He sleeps an average of 7 hours. He consumes 3 cups of coffee daily. PHQ-9 and CHARLEEN-7 scores revealed moderate depression and mild anxiety respectively. Continue current treatment regimen. Routine exercise encouraged. Encouraged to cut down or eliminate caffeine intake. Instructed on sleep hygiene. Follow-up with Jacquelyn Grier at [facility] Psychiatry Outpatient Consultation Service as needed. Follow-up in 3 months or sooner with symptoms or concerns. Verbalized understanding and agreed with treatment plan. (3) Major depression: Code(s): F32.9 - Major depressive disorder, single episode, unspecified Category: Medical Plan: Plan as above. (4) ADHD (attention deficit hyperactivity disorder): Code(s): F90.9 - Attention-deficit hyperactivity disorder, unspecified type Category: Medical Plan: Plan as above. (5) Sleep disturbance: Code(s): G47.9 - Sleep disorder, unspecified Category: Medical Plan: Plan as above. (6) Viral upper respiratory illness: Code(s): J06.9 - Acute upper respiratory infection, unspecified Category: Medical Plan: Likely viral illness though possibly allergies. No exam evidence of bacterial infection Viral illness There is no antibiotic medication for viruses.? They must run their course.? Most average 5-7 days but 7-10 days is not uncommon and up to 14 days is still possible.? A cough is often the last symptom to resolve and this can last for weeks in some cases. Rest Hydrate well -? Drink plenty of fluids.? Especially water. Tylenol or ibuprofen for muscle aches, headache, fever/discomfort May take Zyrtec 10 mg daily Cannot rule out COVID-19/RSV/Flu infection Nasal swab acquired and will be sent to the lab Return for new or worsening symptoms Verbalized understanding and agreed with treatment plan. (7) Chronic back pain: Code(s): M54.9 - Dorsalgia, unspecified; G89.29 - Other chronic pain Category: Medical Qualifiers: Back pain location: low back pain Back pain laterality: bilateral Sciatica presence: without sciatica Qualified Code(s): M54.50 - Low back pain, unspecified; G89.29 - Other chronic pain Plan: Thoracic and lumbar spine tenderness to palpation. He has history of arthritis of the thoracic and lumbar spine. May take Tylenol ibuprofen as needed for pain or discomfort. Warm/cool compresses encouraged. Follow-up with worsening or new symptoms. Verbalized understanding and agreed with treatment plan. (8) Eye exam, routine: Code(s): Z01.00 - Encounter for examination of eyes and vision without abnormal findings Category: Medical Plan: His last eye exam was in 2020: Normal. Referred to Ophthalmology for routine eye care. Orders: Orders SARS-CoV2/FLU/RSV Today J06.9 - Acute upper respiratory infection, unspecified Referrals Ophthalmology Referral Z01.00 - Encounter for examination of eyes and vision without abnormal findings
== END 2024-08-07 08:38 | disposition home or self-care (01) ==
LOC: HO.HMCFM 07:51
PROVIDERS: PCP Nurse Practitioner Family; Visit Provider Nurse Practitioner Family
DX: Z00.00 Encounter for general adult medical examination without abnormal findings (principal); J06.9 Acute upper respiratory infection, unspecified; F41.1 Generalized anxiety disorder; F32.9 Major depressive disorder, single episode, unspecified; F90.9 Attention-deficit hyperactivity disorder, unspecified type; G47.9 Sleep disorder, unspecified; M54.50 Low back pain, unspecified; G89.29 Other chronic pain

== ENCOUNTER 2024-08-08 15:42 | Outpatient (AMB) | payer OTHER, SELFPAY ==
--- NOTE | 2024-08-08 14:41 | A.OFFPSYCH_ITS ---
Intake Intake Visit Reasons: f/u consultation Arterial Embalmer Required: No Allergies penicillin V Allergy (Intermediate, Verified 08/07/24 08:25) rash Medication List - Last Reconciled 08/08/24 by Jacquelyn Cleveland APRN acetaminophen (Tylenol Extra Strength) 500 mg PO Q6H PRN hydroxyzine HCl 25 mg orally Take one tablet daily if needed for anxiety and take 1-2 before bedtime as needed PRN; 30 days ibuprofen 600 mg PO Q8H PRN lisdexamfetamine (Vyvanse) 30 mg PO QAM 30 days magnesium glycinate 87.5 tabs PO QID magnesium L-threonate mg PO melatonin 3 mg PO BEDTIME PRN miscellaneous medical supply (Blood Pressure Cuff) blood pressure checks daily and as needed large cuff please omeprazole 40 mg PO DAILY 90 days [Pentadeca Arginate (Pda) 500 mcg PO DAILY] sucralfate (Carafate) 10 mL PO BID testosterone cypionate 140 mg IM QWEEK HPI- Psychiatric Chief Complaint: f/u consultation HPI Narrative: pt seen for follow up as recommended by his PCP. Pt chief compplaints are poor sleep with poor sleep inititatiation, waking in middle of the night, relstess sleep, waking feeling unrefreshed, brain fog, poor concentration, body aches, low motivation and fearful thoughts intemittently such as someone might break into home. He also describes involuntarily holding his breath right before he falls alseep which scares him. He reports back pain and is in PT. He has not been to the gym to execise for months. he does walk 10,000 steps or more daily in his job working for the [employer]. He often feels nervous around groups of people. His sleep routine includes many excellent sleep hygiene behaviors. He wears blue light blocking glasses at least 2 hours before bedtime, He wakes at the same time every morning (5am) He puts his air conditioner or heat at 67 degrees every night, he has his last meal at 5pm. He begins w to wind down at 7 pm for a 9pm bedtime; he listens to calming music or watchec a calm show; he turn his lights down. He drinks herbal tea before bedtime . He takes suppplement in am and at pm. Each one of the following supplements is from a separate bottle that he showed me His MORNING supplements: Vit D 10,000 IU daily zinc picolate 22mg daily 70 mg of magnesium glycinate [place] 3 oil supplements 690 with EPA and DHA NAC (n-acetylsysteine) 600mg daily Quercetin 500mg and vit C 1400mg saffron 88.25mg daily Neurobrain thrive (b6, folate, B12, cats claw, tyrosine,alpha-lipoic acid) L-theanine 100mg Hyperizine phosphatidylserine PQQ 200mg CoQ10 400mg am Vitqamin B-1 100mg probitic - biogaia His EVENING supplements: melatoniin 5mg bedtime magnesium 144 mg bedtime L-theanine 200mg at bedtime 5HTP with vitmain B6 lay 750mg at bedtime l-tryptophan 1500mg bedtime Pro-health loongevity Magnesium L-threonate Pro-health apigen plus 2 caps L-taurine 50omg passion flower valerian root 100mg hops 75mg skull cap 75mg melatonin 3mg with calcium and magnesium. His diet is varied: he eats rice, chicken, berries, saurkraut. Past Psychiatric History: CC for therapy 1 session. no IPLOC Subjective Subjective Subjective Medication Compliance: Yes Side effects from medications: No Review of Systems Review of Systems fatigue, restlessness, brain fog, limb movements, body pain Constitutional: Reports stops breathing during sleep (subjective sense he stops breathing right before sleep onset) Mental Status Exam Mental Status Exam Patient Appearance: Fatigued Patient Orientation: Person, Place, Time and Situation Level of Consciousness: Restless (pacing) Patient Behavior: Appropriate Mood Description: Depressed, Sad and Nervous Affect Description: Depressed, Sad and Nervous Patient Cognition Impaired: No Ability to Follow Directions: Good Speech Pattern: Clear Memory Description: Episodic Impaired Hallucinations: None Delusions: Not Present Thought Process: Distracted and Slowed Thinking Thought Content: positive for Intact (describes brain fog) Judgement: Fair Telehealth Telehealth Telehealth Platform: Other (please specify) ([email or web address]) Location of provider rendering services: practice address Location of patient: address on file Patient Identification confirmed using: Name, : Yes Telehealth method: video Patient verbally consented to treatment: Yes Patient verbally consented to billing insurance company: Yes Patient informed of any privacy concerns related to visit: Yes Minutes spent on Phone/Video with Pt.: 60 Assessment and Plan Assessment & Plan (1) CHARLEEN (generalized anxiety disorder): Status: Acute Code(s): F41.1 - Generalized anxiety disorder (2) RLS (restless legs syndrome): Status: Acute Code(s): G25.81 - Restless legs syndrome (3) Difficulty sleeping: Status: Acute Code(s): G47.9 - Sleep disorder, unspecified (4) Anxiety: Status: Acute Code(s): F41.9 - Anxiety disorder, unspecified Plan Many of pts complaints could be explained by the interaction of supplements and or side effects/adverse effects rule out mood and physical symptoms related to supplement interactions and side effects as well as heavy metal toxicity Plan: asked patient to stop taking all of the above supplements and switch to a high quality independently tested multivitamin will consult with PCP and neurology re: testing for heavy metals pt to follow up with pcp and neurolgy Counseling and coordination of Care Pt. Self Management counseling: Problem solving Medication management counseling: Effectiveness, Side effects and Drug interaction Details: I spent 70 minutes reviewing the record, seeing the patient and documenting in the medical record. Counseling provided to the patient/caregiver as outlined below. Addressed p atient/caregiver concerns regarding current medication regime including effective adherence. Addressed patient/caregiver concerns regarding diagnosis and prognosis including accuracy of diagnosis, prognosis over time, impact of diagnosis. Addressed patient/caregiver concerns regarding impact of recent stressors. [facility] Medical History Anemia Crohn's disease ADHD (attention deficit hyperactivity disorder) 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 Mother Hypertension Maternal Grandfather Diabetes Stroke Other Anemia Social History Household Members: Friend(s) Housing: Apartment Are you a primary associate director career services to a significant other at home: No Do you presently have visiting nurse or other home services: No Alcohol intake: never Patient Tobacco Use Status: Never used Tobacco e-Cigarette/Vaping Use: Never Used Second Hand Smoke Exposure: No service: No Current occupational status: employed Current occupation: [employer] Cognitive needs: No Hearing needs: No Vision needs: No Social History: Patient is single he lives with his mother and his 20-year-old brother 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 He was unemployed until 2 years ago when he decided to try to get a job. Substance History: No substance use Trauma History: Diagnosed with Crohn's disease as a child Coding Level of Care Code Est Pt Level 5 (97382) Diagnoses CHARLEEN (generalized anxiety disorder) F41.1 RLS (restless legs syndrome) G25.81 Difficulty sleeping G47.9 Anxiety F41.9
--- OUTSIDE RECORDS SUMMARY | 2024-08-08 18:13 | XMS_ITS | Data Portability ---
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 Not available 05/29/2024 12:35:44 Plan of Treatment [...] allergy testing, skin prick (PROC) 2023 024 [email or web address] Not available 12/27/2023 15:10:30 intraderm al allergy skin testing (PROC) 2023 024 [email or web address] Not available 12/27/2023 15:10:40 pulmonary function test procedure (PROC) 2023 024 [email or web address] Not available 12/27/2023 15:10:48 pulse oximetry (PROC) 2023 024 [email or web address] Not available 12/27/2023 15:15:49 Surgeries None recorded. Imaging CT, sinuses, w/o contrast 2023 024 SHAHNAZ [facility] [place], [address], [address], [place], [address], 01/31/2024 23:08:27 Medication Orders epinephri ne 0.3 mg/0.3 mL injection , auto-inje ctor 2024 025 [id number], [address] [place], [address], 05/29/2024 12:32:14 azelastin e 137 mcg (0.1 %) nasal spray 2024 025 [id number], [address] [place], [address], 05/29/2024 12:34:07 Patient TargetsNo targets recorded. Patient Instructions Encounter Date Encounter Id Patient Instructions Last Modified By Organization Details Last Modified Time 12/27/2023 [id number] Nursing Documentation for Allergy Testing: Ordering Provider {{Dr. Uli aGlarza* Dr. Harley Bunn}} Weight:lbs:? ? ?kg: ? [...] {{Fernanda Falk, CARLOS Johnson, ANA LILIA Waddell*}} [email or web address] Not available 12/27/2023 15:09:39 Reason for Referral [...] ken [facility] [address], [place], [address], 02/01/2024 08:28:32 05/29/19 25 audio gram No observ ation record ed. BARCODE Not Available 2024 15:14:57 Result Notes None recorded. Problems Name Problem SNOMED Code Status Onset Date Resolution Date Notes Provider Name and Address Organization Details Recorded Time Closed fracture of nasal bones 67018442 Active 2022 Fracture of nasal bones, initial encounter for closed fracture; Note: Date Diagnosed : 07/21/2022 10:06 AM (S02.2XXA ) Not Available [facility] 4 02:14:15 Impacted cerumen in right ear 13226156279 49532 Active 2016 Impacted cerumen, right ear; Note: Date Diagnosed : 04/29/2016 4:34 PM (H61.21) Not Available [facility] 4 02:13:30 Allergic rhinitis caused by pollen 31612894 Active 2019 Allergy NOS due to pollen; Note: Date Diagnosed : 11/16/2019 11:51 AM (J30.1) Not Available [facility] 4 02:13:08 Impacted cerumen of bilateral ears 94975507428 00606 Active 2023 TATIANA DOLAN PA-C [address] [place] [address],[place] [address], [place], [address] , [facility] - [facility] 4 14:04:01 Nasal congestio n 50218530 Active 2023 TATIANA DOLAN PA-C [address] [place] [address],[place] [address], [place], [address] , [facility] - [facility] [place] 4 14:05:26 Allergic rhinitis 69162064 Active 2023 TATIANA DOLAN PA-C [address] [place] [address],[place] [address], [address] , [place] [facility] [place] 4 14:05:34 Seasonal allergic rhinitis 247334170 Active 2023 TATIANA DOLAN PA-C [address] [place] [address],[place] [address], [place], [address] , [facility] - [facility] [place] 4 14:05:34 Non-aller gic rhinitis 68482022965 1 Active 2023 TATIANA DOLAN PA-C 100 [facility],[place] [address], [place], [address] , [facility] 4 14:05:34 Abnormal auditory perceptio n 49325608 Active 2024 TAYLOR GUPTA, AUD 100 [facility] 100, [place], [address] , [facility] 5 11:50:31 Problem Notes None recorded. Procedures Surgical History Date Name Laterality Status Provider Name and Address Organization Details Recorded Time 05/29/19 25 Air & Speech Audio with Tymps (89540, 77700 & 42289) completed TAYLOR GUPTA AUD 100 [facility],[place] [address], [place], [address], [facility] 05/29/2024 11:49:44 01/03/20 24 Allergy Testing-Full completed ANA LILIA STEPHEN 100 [facility],[place] [address], [place], [address], [facility] 01/03/2024 11:15:19 12/27/19 24 Allergy Testing Modified- Quantitative Testing (MQT) Only completed ANA LILIA STEPHEN 100 [facility],[place] [address], [place], [address], [facility] 12/27/2023 15:09:31 Imaging Results Imaging Date Name Status [facility] by [facility] Details LastModified Time 07/15/2022 imaging/diagno stic result completed [email or web address] Information not available 12/01/2023 07:07:48 01/31/2024 CT, sinuses, w/o contrast completed ken [facility] [address], [place], [address], 02/01/2024 08:28:32 05/29/2024 audiogram completed BARCODE Information no t available 05/29/2024 15:14:57 Procedure Notes None recorded. Medical Equipment None Reported. Allergies Allergen ID Allergen Name Allergen Category Reaction Reaction Severity Criticality Documentation Date Start Date Code Code System Note Provider Name and Address Organization Details Recorded Time 14906 penicilli n V potassium medicatio n other Not available Not available 08/24/202310836 5 RxNorm React ion: unkno wn, unspe cifie d;; Not Available [facility] 00:50:23 Medications Name Sig Start Date Stop [...] mg tablet 12/26 completed Medicati on ID: [id number] D uration Value: 10 Brand Name: predniso [...] e 137 mcg (0.1 %) nasal spray [place] 2 sprays twice a day by intranas [...] subcut kit 11/15 completed Medicati on ID: [id number] D uration Value: 28 Reason: () Brand [...] Updated DateTime 12/06/2023 190.5 cm 31.2 kg/m2 342031.09 g Violet Ramy [facility] 12/06/2023 13:48:51 Date Recorded Body height Body mass index (BMI) Body weight Oxygen saturation Oxygen saturation in Arterial blood by Pulse oximetry Heart rate Systolic blood pressure Diastolic blood pressure Provider Name and Address Organization Details Last Updated DateTime 190.5 cm 30 kg/m2 574288. 17 g 99 % 99 % 63 /min 121 mm[Hg] 83 mm[Hg] ANA LILIA STEPHEN [address] [place] [address], [address] [place] [address] [facility] 14:29:13 Date Recorded Body height Body mass index (BMI) Body weight Provider Name and Address Organization Details Last Updated DateTime 05/29/2024 190.5 cm 29.4 kg/m2 142900.21 g Dianna Pepe [facility] 05/29/2024 11:17:54 Social History None recorded. Functional Status None recorded. Mental Status None recorded. Family History Nothing Reported. Medical History No medical history recorded. Past Encounters Encounter ID Performer Location Encounter Start Date Encounter Closed Date Diagnosis/Indication Diagnosis SNOMED-CT Code Diagnosis ICD10 Code Diagnosis Note [id number] CARO DUNCAN MD [facility]NT[facility] of [address] [address] 12/06/2023 13:31:09 12/06/2023 13:55:51 Nasal congestion 24509405 R09.81 [id number] ANA LILIA STEPHEN Allergy [address] [place] [address] [address] 12/27/2023 14:12:56 12/27/2023 15:26:25 Allergic rhinitis 59678593 J30.9 [id number] RYLEY WADDELL, RMA Allergy 100 [facility] it 100 [place] [address] 01/03/2024 10:16:10 01/03/2024 10:17:15 Allergic rhinitis 73801160 J30.9 [id number] ARNEL CISNEROS MD [facility] of [facility] 100 [place] [address] 05/29/2024 11:04:38 05/29/2024 12:04:22 Nasal congestion 46054477 R09.81 Allergic rhinitis 445686 04 J30.89 Abnormal a uditory perception 70671344 H93.299 Right Ear:Normal hearing with excellent speech [...] Policy Number Policy [place] Covered Member ID Enmaorado Member ID Guarantor Name 12/06/2023 1 [facility] ([facility]) [id number] Tyler L Mccann [id number] Tyler L Mccann 12/27/2023 1 [facility] ([facility]) [id number] Tyler L Mccann [id number] 00 Tyler L Mccann 01/03/2024 1 [facility] (O) [id number] Tyler L Mccann [id number] 00 Tyler L Mccann 05/29/2024 1 [facility] (O) [id number] Tyler L Mccann [id number] 00 Tyler L Mccann Notes Date Note [...] of sinus infections. CARO DUNCAN MD 100 [facility],[address], [address], [facility] 12/07/2023 16:32:07 05/29/2024 text/html 28-year-old male presents for review of allergy testing and CT sinus. He has been using Flonase daily without improvement. CT sinus was also ordered. He continues to have nasal congestion, sneezing, rhinorrhea, decreased sense of smell, and facial pressure. No history of recurrent sinusitis. Also notes decreased hearing bilaterally for a few years. ARNEL BUNN MD 100 [facility],[place] [address], [place], [address], [facility] 05/29/2024 17:08:31
== END 2024-08-08 15:43 | disposition home or self-care (01) ==
LOC: HO.HOP 15:42
PROVIDERS: PCP Nurse Practitioner Family; Visit Provider Clinical Nurse Specialist Psychiatric/Mental Health
DX: F41.1 Generalized anxiety disorder (principal); F41.9 Anxiety disorder, unspecified; G25.81 Restless legs syndrome; G47.9 Sleep disorder, unspecified
CPT/HCPCS: 99215

== ENCOUNTER 2024-08-09 13:53 | Outpatient (REF) | payer OTHER, SELFPAY ==
[2024-08-12 18:23] LABS: Arsenic, Blood <3 mcg/L (<23); Lead, Blood <1.0 mcg/dL (<3.5); Mercury, Blood <4 mcg/L (<=10)
== END 2024-08-09 13:54 | disposition home or self-care (01) ==
LOC: HO.LAB 13:53
PROVIDERS: PCP Nurse Practitioner Family; Visit Provider Nurse Practitioner Family
DX: R89.2 Abnormal level of other drugs, medicaments and biological substances in specimens from other organs, systems and tissues (principal)
CPT/HCPCS: 36415; 82175; 83655; 83825

== ENCOUNTER 2024-08-10 06:08 | Outpatient (REF) | payer OTHER, SELFPAY ==
--- OUTSIDE RECORDS SUMMARY | 2024-08-10 06:10 | XMS_ITS | Data Portability ---
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 [email or web address] Not available 05/29/2024 12:35:44 Plan of Treatment [...] allergy testing, skin prick (PROC) 2023 024 [email or web address] Not available 12/27/2023 15:10:30 intraderm al allergy skin testing (PROC) 2023 024 [email or web address] Not available 12/27/2023 15:10:40 pulmonary function test procedure (PROC) 2023 024 Not available 12/27/2023 15:10:48 pulse oximetry (PROC) 2023 024 [email or web address] Not available 12/27/2023 15:15:49 Surgeries None recorded. Imaging CT, sinuses, w/o contrast 2023 024 SHAHNAZ [facility] [place], [address], [address], [place], [address], 01/31/2024 23:08:27 Medication Orders epinephri ne 0.3 mg/0.3 mL injection , auto-inje ctor 2024 025 [id number], [address] [place], [address], 05/29/2024 12:32:14 azelastin e 137 mcg (0.1 %) nasal spray 2024 025 [id number], [address] [place], [address], 05/29/2024 12:34:07 Patient TargetsNo targets recorded. Patient Instructions Encounter Date Encounter Id Patient Instructions Last Modified By Organization Details Last Modified Time 12/27/2023 [id number] Nursing Documentation for Allergy Testing: Ordering Provider [...] {{Fernanda Falk, CARLOS Johnson, ANA LILIA Waddell*}} [email or web address] Not available 12/27/2023 15:09:39 Reason for Referral [...] ken [facility] [address], [place], [address], 02/01/2024 08:28:32 05/29/19 25 audio gram No observ ation record ed. BARCODE Not Available 2024 15:14:57 Result Notes None recorded. Problems Name Problem SNOMED Code Status Onset Date Resolution Date Notes Provider Name and Address Organization Details Recorded Time Closed fracture of nasal bones 24991459 Active 2022 Fracture of nasal bones, initial encounter for closed fracture; Note: Date Diagnosed : 07/21/2022 10:06 AM (S02.2XXA ) Not Available [facility] 4 02:14:15 Impacted cerumen in right ear 15364129509 69131 Active 2016 Impacted cerumen, right ear; Note: Date Diagnosed : 04/29/2016 4:34 PM (H61.21) Not Available [facility] 4 02:13:30 Allergic rhinitis caused by pollen 48789133 Active 2019 Allergy NOS due to pollen; Note: Date Diagnosed : 11/16/2019 11:51 AM (J30.1) Not Available [facility] 4 02:13:08 Impacted cerumen of bilateral ears 95270511372 66969 Active 2023 TATIANA DOLAN PA-C [address] [place] [address],[place] [address], [place], [address] , [facility] - [facility] 4 14:04:01 Nasal congestio n 82527048 Active 2023 TATIANA DOLAN PA-C [address] [place] [address],[place] [address], [place], [address] , [facility] - [facility] [place] 4 14:05:26 Allergic rhinitis 73220119 Active 2023 TATIANA DOLAN PA-C [address] [place] [address],[place] [address], [address] , [facility] [place] 4 14:05:34 Seasonal allergic rhinitis 115336383 Active 2023 TATIANA DOLAN PA-C [address] [place] [address],[place] [address], [place], [address] , [facility] - [facility] [place] 4 14:05:34 Non-aller gic rhinitis 08283323012 1 Active 2023 TATIANA DOLAN PA-C 100 [facility],[place] [address], [place], [address] , [facility] 4 14:05:34 Abnormal auditory perceptio n 99350858 Active 2024 TAYLOR GUPTA, AUD 100 [facility] 100, [place], [address] , [facility] 5 11:50:31 Problem Notes None recorded. Procedures Surgical History Date Name Laterality Status Provider Name and Address Organization Details Recorded Time 05/29/19 25 Air & Speech Audio with Tymps (22654, 36420 & 42571) completed TAYLOR GUPTA AUD 100 [facility],[place] [address], [place], [address], [facility] 05/29/2024 11:49:44 01/03/20 24 Allergy Testing-Full completed ANA LILIA STEPHEN 100 [facility],[place] [address], [place], [address], [facility] 01/03/2024 11:15:19 12/27/19 24 Allergy Testing Modified- Quantitative Testing (MQT) Only completed ANA LILIA STEPHEN 100 [facility],[place] [address], [place], [address], [facility] 12/27/2023 15:09:31 Imaging Results Imaging Date Name Status LastModified by Organ [facility] Details LastModified Time 07/15/2022 imaging/diagno stic result completed [email or web address] Information not available 12/01/2023 07:07:48 01/31/2024 CT, sinuses, w/o contrast completed ken [facility] [address], [place], [address], 02/01/2024 08:28:32 05/29/2024 audiogram completed BARCODE Information no t available 05/29/2024 15:14:57 Procedure Notes None recorded. Medical Equipment None Reported. Allergies Allergen ID Allergen Name Allergen Category Reaction Reaction Severity Criticality Documentation Date Start Date Code Code System Note Provider Name and Address Organization Details Recorded Time 31225 penicilli n V potassium medicatio n other Not available Not available 08/24/202346201 5 RxNorm React ion: unkno wn, unspe cifie d;; Not Available [facility] 00:50:23 Medications Name Sig Start Date Stop [...] mg tablet 12/26 completed Medicati on ID: [id number] D uration Value: 10 Brand Name: predniso [...] e 137 mcg (0.1 %) nasal spray [place] 2 sprays twice a day by intranas [...] Not Available Not Available Not Available escitalop alfrde 10 mg tablet TAKE 1 TABLET BY MOUTH EVERY DAY IN THE MORNING active Not Available Not Available No t Available Humira Pen Crohn's-U lc Colitis-H id Sup Starter 40 mg/0.8 mL subcut kit 11/15 completed Medicati on ID: [id number] D uration Value: 28 Reason: () Brand [...] Updated DateTime 12/06/2023 190.5 cm 31.2 kg/m2 583906.09 g Violet Ramos [facility] 12/06/2023 13:48:51 Date Recorded Body height Body mass index (BMI) Body weight Oxygen saturation Oxygen saturation in Arterial blood by Pulse oximetry Heart rate Systolic blood pressure Diastolic blood pressure Provider Name and Address Organization Details Last Updated DateTime 190.5 cm 30 kg/m2 611633. 17 g 99 % 99 % 63 /min 121 mm[Hg] 83 mm[Hg] ANA LILIA STEPHEN [address] [place] [address], [address] [place] [address] [facility] 14:29:13 Date Recorded Body height Body mass index (BMI) Body weight Provider Name and Address Organization Details Last Updated DateTime 05/29/2024 190.5 cm 29.4 kg/m2 054763.21 g Dianna Pepe [facility] 05/29/2024 11:17:54 Social History None recorded. Functional Status None recorded. Mental Status None recorded. Family History Nothing Reported. Medical History No medical history recorded. Past Encounters Encounter ID Performer Location Encounter Start Date Encounter Closed Date Diagnosis/Indication Diagnosis SNOMED-CT Code Diagnosis ICD10 Code Diagnosis Note [id number] TATIANA DOLAN PA-C [facility] of [address] [address] 12/06/2023 13:31:09 12/06/2023 13:55:51 Nasal congestion 40661045 R09.81 [id number] ANA LILIA STEPHEN Allergy [address] [place] [address] [address] 12/27/2023 14:12:56 12/27/2023 15:26:25 Allergic rhinitis 44144076 J30.9 [id number] RYLEY WADDELL, RMJerry Allergy 100 [facility], it 100 [place] [address] 01/03/2024 10:16:10 01/03/2024 10:17:15 Allergic rhinitis 56561313 J30.9 [id number] TATIANA DOLAN PA-C [facility] of [facility] 100 [place] [address] 05/29/2024 11:04:38 05/29/2024 12:04:22 Nasal congestion 58165173 R09.81 Allergic rhinitis 111948 04 J30.89 Abnormal a uditory perception 07867511 H93.299 Right Ear:Normal hearing with excellent speech [...] Enamorado Member ID Guarantor Name 12/06/2023 1 [facility] [place] [id number] Tyler L Mccann [id number] 00 Tyler L Mccann 12/27/2023 1 [facility] (O) [id number] Tyler L Mccann [id number] 00 Tyler L Mccann 01/03/2024 1 [facility] ([facility]) [id number] Tyler L Mccann [id number] 00 Tyler L Mccann 05/29/2024 1 [facility] ([facility]) [id number] Tyler L Mccann [id number] 00 Tyler L Mccann Notes Date Note [...] of sinus infections. CARO DUNCAN MD 100 [facility],[place] [address], [place], [address], [facility] 12/07/2023 16:32:07 05/29/2024 text/html 28-year-old male presents for review of allergy testing and CT sinus. He has been using Flonase daily without improvement. CT sinus was also ordered. He continues to have nasal congestion, sneezing, rhinorrhea, decreased sense of smell, and facial pressure. No history of recurrent sinusitis. Also notes decreased hearing bilaterally for a few years. ARNEL BUNN MD 100 [facility],[place] [address], [place], [address], [facility] 05/29/2024 17:08:31
[2024-08-10 07:43] LABS: Cholesterol 160 mg/dL (<200); HDL Cholesterol 45 mg/dL (>40); LDL Cholesterol Calculated 105 mg/dL (<100); Triglycerides 53 mg/dL (<150)
[2024-08-10 07:58] LABS: TSH reflex Free T4 1.19 uIU/mL (0.32-4.0); Vitamin D 25-OH Total 47.6 ng/mL (>30)
== END 2024-08-10 06:09 | disposition home or self-care (01) ==
LOC: HO.LAB 06:08
PROVIDERS: PCP Nurse Practitioner Family; Visit Provider Nurse Practitioner Family
DX: Z00.00 Encounter for general adult medical examination without abnormal findings (principal)
CPT/HCPCS: 36415; 80061; 82306; 84443

== ENCOUNTER 2024-08-11 12:45 | Outpatient (REF) | payer OTHER, SELFPAY ==
--- OUTSIDE RECORDS SUMMARY | 2024-08-11 13:11 | XMS_ITS | Data Portability ---
Author Organization [place] - [facility], Allergy Address [address] [address] Care Team Providers Care Market Research Executive Name Role Phone YARIEL PANDEY Primary Care Provider [phone] YARIEL VIZCARRA Primary Care Provider Assessment Encounter [...] discussed the risk of anaphylaxis with this. [email or web address] Not available 05/29/2024 12:35:44 Plan of Treatment [...] allergy testing, skin prick (PROC) 2023 024 [email or web address] Not available 12/27/2023 15:10:30 intraderm al allergy skin testing (PROC) 2023 024 [email or web address] Not available 12/27/2023 15:10:40 pulmonary function test procedure (PROC) 2023 024 [email or web address] Not available 12/27/2023 15:10:48 pulse oximetry (PROC) 2023 024 [email or web address] Not available 12/27/2023 15:15:49 Surgeries None recorded. Imaging CT, sinuses, w/o contrast 2023 024 SHAHNAZ [facility] [place], [address], [address], [place], [address], 01/31/2024 23:08:27 Medication Orders epinephri ne 0.3 mg/0.3 mL injection , auto-inje ctor 2024 025 [id number], [address] [place], [address], 05/29/2024 12:32:14 azelastin e 137 mcg (0.1 %) nasal spray 2024 025 [id number], [address] [place], [address], 05/29/2024 12:34:07 Patient TargetsNo targets recorded. Patient Instructions Encounter Date Encounter Id Patient Instructions Last Modified By Organization Details Last Modified Time 12/27/2023 [id number] Nursing Documentation for Allergy Testing: Ordering Provider [...] {{Fernanda Falk, CARLOS Johnson, ANA LILIA Waddell*}} [email or web address] Not available 12/27/2023 15:09:39 Reason for Referral [...] [facility]en [facility] [address], [place], [address], 02/01/2024 08:28:32 05/29/19 25 audio gram No observ ation record ed. BARCODE Not Available 2024 15:14:57 Result Notes None recorded. Problems Name Problem SNOMED Code Status Onset Date Resolution Date Notes Provider Name and Address Organization Details Recorded Time Closed fracture of nasal bones 58218084 Active 2022 Fracture of nasal bones, initial encounter for closed fracture; Note: Date Diagnosed : 07/21/2022 10:06 AM (S02.2XXA ) Not Available [facility] 4 02:14:15 Impacted cerumen in right ear 40020964195 15519 Active 2016 Impacted cerumen, right ear; Note: Date Diagnosed : 04/29/2016 4:34 PM (H61.21) Not Available [facility] 4 02:13:30 Allergic rhinitis caused by pollen 22177316 Active 2019 Allergy NOS due to pollen; Note: Date Diagnosed : 11/16/2019 11:51 AM (J30.1) Not Available [facility] 4 02:13:08 Impacted cerumen of bilateral ears 16847191492 32765 Active 2023 TATIANA DLOAN PA-C [address] [place] [address],[place] [address], [place], [address] , [facility] - [facility] 4 14:04:01 Nasal congestio n 10286697 Active 2023 TATIANA DOLAN PA-C [address] [place] [address],[place] [address], [place], [address] , [facility] - [facility] [place] 4 14:05:26 Allergic rhinitis 23062856 Active 2023 TATIANA DOLAN PA-C [address] [place] [address],[place] [address], [address] , [facility] [place] 4 14:05:34 Seasonal allergic rhinitis 950865238 Active 2023 TATIANA DOLAN PA-C [address] [place] [address],[place] [address], [place], [address] , [facility] - [facility] [place] 4 14:05:34 Non-aller gic rhinitis 51597631400 1 Active 2023 TATIANA DOLAN PA-C 100 [facility],[place] [address], [place], [address] , [facility] [place] 4 14:05:34 Abnormal auditory perceptio n 31878167 Active 2024 TAYLOR GUPTA, AUD 100 [facility] 100, [place], [address] , [facility] 5 11:50:31 Problem Notes None recorded. Procedures Surgical History Date Name Laterality Status Provider Name and Address Organization Details Recorded Time 05/29/19 25 Air & Speech Audio with Tymps - 93098, 35537 & 86845 completed TAYLOR GUPTA, AUD 100 [facility],[place] [address], [place], [address], [facility] 05/29/2024 11:49:44 01/03/20 24 Allergy Testing-Full completed ANA LILIA STEPHEN 100 [facility],[place] [address], [place], [address], [facility] 01/03/2024 11:15:19 12/27/19 24 Allergy Testing Modified- Quantitative Testing (MQT) Only completed ANA LILIA STEPHEN 100 [facility],[place] [address], [place], [address], [facility] 12/27/2023 15:09:31 Imaging Results Imaging Date Name Status LastModified by [facility] Details LastModified Time 07/15/2022 imaging/diagno stic result completed [email or web address] Information not available 12/01/2023 07:07:48 01/31/2024 CT, sinuses, w/o contrast completed ken [facility] [address], [place], [address], 02/01/2024 08:28:32 05/29/2024 audiogram completed BARCODE Information no t available 05/29/2024 15:14:57 Procedure Notes None recorded. Medical Equipment None Reported. Allergies Allergen ID Allergen Name Allergen Category Reaction Reaction Severity Criticality Documentation Date Start Date Code Code System Note Provider Name and Address Organization Details Recorded Time 83267 penicilli n V potassium medicatio n other Not available Not available 08/24/202311448 5 RxNorm React ion: unkno wn, unspe cifie d;; Not Available [facility] 00:50:23 Medications Name Sig Start Date Stop [...] mg tablet 12/26 completed Medicati on ID: [id number] D uration Value: 10 Brand Name: predniso [...] e 137 mcg (0.1 %) nasal spray Minerva 2 sprays twice a day by intranas [...] subcut kit 11/15 completed Medicati on ID: [id number] D uration Value: 28 Reason: () Brand [...] Updated DateTime 12/06/2023 190.5 cm 31.2 kg/m2 279045.09 g Violet Ramos [facility] 12/06/2023 13:48:51 Date Recorded Body height Body mass index (BMI) Body weight Oxygen saturation Oxygen saturation in Arterial blood by Pulse oximetry Heart rate Systolic blood pressure Diastolic blood pressure Provider Name and Address Organization Details Last Updated DateTime 190.5 cm 30 kg/m2 019240. 17 g 99 % 99 % 63 /min 121 mm[Hg] 83 mm[Hg] ANA LILIA STEPHEN [address] [place] [address], [address] [place] [address] [facility] 14:29:13 Date Recorded Body height Body mass index (BMI) Body weight Provider Name and Address Organization Details Last Updated DateTime 05/29/2024 190.5 cm 29.4 kg/m2 470198.21 g Dianna Pepe [facility] 05/29/2024 11:17:54 Social History None recorded. Functional Status None recorded. Mental Status None recorded. Family History Nothing Reported. Medical History No medical history recorded. Past Encounters Encounter ID Performer Location Encounter Start Date Encounter Closed Date Diagnosis/Indication Diagnosis SNOMED-CT Code Diagnosis ICD10 Code Diagnosis Note [id number] TATIANA DOLAN PA-C [facility] [address] [address] 12/06/2023 13:31:09 12/06/2023 13:55:51 Nasal congestion 22571970 R09.81 [id number] ANA LILIA STEPHEN All[facility] [address] [place] [address] [address] 12/27/2023 14:12:56 12/27/2023 15:26:25 Allergic rhinitis 11341804 J30.9 [id number] RYLEY WADDELL, RMJerry [facility] 100 [facility] 100 [place] [address] 01/03/2024 10:16:10 01/03/2024 10:17:15 Allergic rhinitis 82467141 J30.9 [id number] TATIANA DOLAN PA-C [facility] 100 [place] [address] 05/29/2024 11:04:38 05/29/2024 12:04:22 Nasal congestion 68563653 R09.81 Allergic rhinitis 222671 04 J30.89 Abnormal a uditory perception 66205622 H93.299 Right Ear:Normal hearing with excellent speech [...] [employer] Member ID Guarantor Name 12/06/2023 1 [facility] (O) [id number] Tyler L Mccann [id number] 00 Tyler L Mccann 12/27/2023 1 [facility] (O) [id number] Tyler L Mccann [id number] 00 Tyler L Mccann 01/03/2024 1 [facility] (O) [id number] Tyler L Mccann [id number] 00 Tyler L Mccann 05/29/2024 1 [facility] (O) [id number] Tyler L Mccann [id number] 00 Tyler L Mccann Notes Date Note [...] of sinus infections. CARO DUNCAN MD 100 [facility],[address], [address], [facility] 12/07/2023 16:32:07 05/29/2024 text/html 28-year-old male presents for review of allergy testing and CT sinus. He has been using Flonase daily without improvement. CT sinus was also ordered. He continues to have nasal congestion, sneezing, rhinorrhea, decreased sense of smell, and facial pressure. No history of recurrent sinusitis. Also notes decreased hearing bilaterally for a few years. ARNEL BUNN MD 100 [facility],[place] [address], [place], [address], [facility] 05/29/2024 17:08:31
[2024-08-11 13:47] LABS: Iron 97 mcg/dL (45-160); Magnesium 2.1 mg/dL (1.6-2.6); Percent Iron Saturation 36 % (15-50); Total Iron Binding Capacity 273 mcg/dL (228-428); Unsaturated Iron Binding 176 ug/dL
[2024-08-11 13:53] LABS: Erythrocyte Sedimentation Rate 2 MM/HR (0-15)
[2024-08-11 14:00] LABS: Ferritin 151 ng/mL (20-250)
[2024-08-11 14:15] LABS: Folate 14.4 ng/mL (> or = 4.0); Vitamin B12 1904 pg/mL (200-900)
[2024-08-14 21:44] LABS: Copper, serum 117 mcg/dL (70-175)
[2024-08-14 23:23] LABS: Zinc 95 mcg/dL (60-130)
[2024-08-15 12:09] LABS: Vitamin B6 33.4 ng/mL (2.1-21.7)
[2024-08-16 05:14] LABS: Vitamin C 1.1 mg/dL (0.2-2.1)
[2024-08-16 16:48] LABS: Beta-Gamma Tocopherol <1.0 mg/L (<=4.3)
[2024-08-17 06:33] LABS: Vitamin B1 8 nmol/L (8-30)
== END 2024-08-11 12:46 | disposition home or self-care (01) ==
LOC: HO.LAB 12:45
PROVIDERS: PCP Nurse Practitioner Family; Visit Provider Nurse Practitioner Family
DX: R89.2 Abnormal level of other drugs, medicaments and biological substances in specimens from other organs, systems and tissues (principal); F41.1 Generalized anxiety disorder; F32.9 Major depressive disorder, single episode, unspecified; G47.61 Periodic limb movement disorder; R53.1 Weakness; K50.918 Crohn's disease, unspecified, with other complication; D64.9 Anemia, unspecified
CPT/HCPCS: 36415; 82180; 82525; 82607; 82728; 82746; 83540; 83735; 84207; 84425; 84446; 84630; 85652

== ENCOUNTER 2024-08-14 11:36 | Outpatient (REF) | payer OTHER, SELFPAY ==
[2024-08-19 23:58] LABS: Arsenic, 24H Urine <10 mcg/L (<=80); Cadmium, 24H Urine <0.5 mcg/L (<=5.0); Copper,Urine 24 Hr <5 mcg/24 h (15-60); Lead, 24H Urine <10 mcg/L (<80); Mercury, 24H Urine <4 mcg/L (<=20); Total Volume 24 Ur 3180 mL
[2024-08-20 03:58] LABS: Creatinine, 24H Ur 1.51 g/24 h (0.50-2.15); Magnesium, 24H Urine 104 mg/24 h (28-180); Magnesium, Urine 24H/g Creat 69 mg/g creat (16-90); Total Volume 3180 mL
== END 2024-08-14 11:37 | disposition home or self-care (01) ==
LOC: HO.LNP 11:36
PROVIDERS: Visit Provider Nurse Practitioner Family
DX: R89.2 Abnormal level of other drugs, medicaments and biological substances in specimens from other organs, systems and tissues (principal); F41.1 Generalized anxiety disorder; F32.9 Major depressive disorder, single episode, unspecified; G47.61 Periodic limb movement disorder; R53.1 Weakness; K50.918 Crohn's disease, unspecified, with other complication
CPT/HCPCS: 82175; 82300; 82525; 83655; 83735; 83825

== ENCOUNTER 2024-08-16 12:39 | Outpatient (REF) | payer OTHER, SELFPAY ==
--- NOTE | ~2024-08-16 | XR_ITS ---
EXAMINATION: XR CHEST CLINICAL INFORMATION: R06.00 - Dyspnea, unspecified COMPARISON: 11/09/2023. 08/29/2021. TECHNIQUE: 2 views of the chest were obtained. FINDINGS: The cardiac, hilar, and mediastinal contours are normal. The lungs are clear bilaterally. There is no pneumothorax or pleural effusion. There is no focal osseous or soft tissue abnormality. XR/XR chest 2V IMPRESSION: Normal chest. Electronically signed by: Leonides Cruz MD 08/16/2024 02:11 PM EDT
== END 2024-08-16 12:40 | disposition home or self-care (01) ==
LOC: HO.HMGCX 12:39
PROVIDERS: PCP Nurse Practitioner Family; Visit Provider Physician Assistant
DX: R06.00 Dyspnea, unspecified (principal)
CPT/HCPCS: 71046; 99212

== ENCOUNTER 2024-08-16 12:39 | Outpatient (AMB) | payer OTHER, SELFPAY ==
--- NOTE | 2024-08-16 12:43 | AM.OFFWIN_ITS ---
Intake Vital Signs 08/16/24 12:45 BP 110/78 Blood Pressure Location Lt brachial Position Sitting Pulse 98 Pulse Source Pulse Oximeter Temp 98.1 F Temp Source Oral Pulse Oximetry (%) 98 Oxygen Delivery Method Room Air Intake Visit Reasons: EP-sob Intake Note: Patient here for SOB Patient Tobacco Use Status: Never used Tobacco Allergies penicillin V Allergy (Intermediate, Verified 08/07/24 08:25) rash HPI HPI Comments History of Present Illness Details Patient is a 29yo M w/ hx of insomnia, CHARLEEN, RLS who presents for SOB Was seen here on 08/02 for insomnia and multiple other symptoms including intermittent dyspnea, headache. chronic fatigue PMH was reviewed and previous sleep studies showed no CARLA diagnosis. It was recommended shiva he see PCP He had f/u with PCP on 08/07 and was referred to his psychiatrist who recommended stopping OTC supplements for concern of metal toxicity and had heavy metal studies completed He decides to come in today for his SOB complaint He said he is breathing but feels like he is not getting enough oxygen Ongoing intermittently for years No worsening during certain seasons. States its constant symptom that does not seem to wax and wane + congestion and watery eyes now with po llen States had environmental allergy test and has all pertinent environmental allergies He decided to come today because he feels +fatigue, low energy, difficulty focusing, and feels like not breathing fully No cough or CP Pt said when he was younger he had asthma with inhaler/nebulizer use Has not used in multiple years/adolescence Pt said he tried Primatene OTC which helped with his breathing; gave him more energy He has seen top lift and automatic window repairer in past 10-15 years ago; [facility] Medical History (Updated 08/16/24 @ 12:56 by Elysia Bautista PA-C) Anemia Crohn's disease ADHD (attention deficit hyperactivity disorder) 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 Mother Hypertension Maternal Grandfather Diabetes Stroke Other Anemia Social History Household Members: Friend(s) Housing: Apartment Are you a primary care management specialist to a significant other at home: No Do you presently have visiting nurse or other home services: No Alcohol intake: never Patient Tobacco Use Status: Never used Tobacco e-Cigarette/Vaping Use: Never Used Second Hand Smoke Exposure: No service: No Current occupational status: employed Current occupation: [employer], [employer] Cognitive needs: No Hearing needs: No Vision needs: No Review of Systems Const Denies chills, Reports fatigue, Denies fever(s) and Reports headache(s) Eyes Denies change in vision ENT Reports otalgia (ongoing R sided ear infection; states on antibiotics), Reports headache(s), Reports nasal congestion, Reports nasal discharge and Denies throat swelling Card Denies chest pain and Reports dyspnea Resp Denies change in phlegm color, Denies cough, Denies excessive phlegm production, Denies pain on inspiration and Reports dyspnea GI Denies vomiting Skin/Breast Denies rash Neuro Reports headache(s) Endo Reports fatigue Aller/Immun Denies throat swelling Physical Exam Vital Signs: Last Vital Signs Temp 98.1 F 08/16/24 12:45 Pulse 98 08/16/24 12:45 BP 110/78 08/16/24 12:45 Pulse Ox 98 08/16/24 12:45 Oxygen Delivery Method Room Air 08/16/24 12:45 General: Non-toxic, NAD. Speaking full sentences. Intermittent, every approx 5 minutes pt takes one big deep breath Skin: Warm dry throughout Eye: EOMI HENT: Airway patent. Uvula midline. No pharyngeal erythema or edema. No ACIDIZER. Bilateral canals clear. Slight fluid behind R TM but otherwise TM non- erythematous, non-bulging. No TM perforation or hemotympanum noted. Respiratory: CTA bilaterally. No wheezes, rales or rhonchi. No tachypnea or stridor. No accessory muscle use Cardiac: RRR. No murmur MSK: Full ROM extremities. Neurology: Alert. No aphasia or facial droop. Gait without abnormality Psych: Good mood and affect Assessment & Plan Assessment & Plan (1) Dyspnea: Code(s): R06.00 - Dyspnea, unspecified Qualifiers: Dyspnea type: unspecified Qualified Code(s): R06.00 - Dyspnea, unspecified Plan: Patient seen and evaluated. Non-toxic appearing Lungs CTA Chest xray: I viewed normal Discussed with pt this could be in relation to anxiety but due to respiratory symptoms, he may need further evaluation with top lift and automatic window repairer Will send PCP a note In meantime, this has been ongoing for years. discussed daily antihistamine use for allergy symptoms ER prptocol discussed Patient gave verbal understanding and had no additional questions or concerns at time of discharge All questions answered Orders: Orders XR chest 2V Today R06.00 - Dyspnea, unspecified Coding Level of Care Code Est Pt Level 3 (51784) Diagnoses Dyspnea, unspecified type R06.00 Dyspnea type: unspecified
[2024-08-16 12:45] VITALS: BP 110/78; PULSE 98; TEMP 36.7; O2SAT 98
--- OUTSIDE RECORDS SUMMARY | 2024-08-16 13:42 | XMS_ITS | Data Portability ---
Author Organization [place] - [facility], Allergy Address [address] [address] Care Team Providers Care Maintainer [employer] Name Role Phone YARIEL PANDEY Primary Care Provider [phone] YARIEL VIZCARRA Primary Care Provider Assessment Encounter [...] allergy testing, skin prick (PROC) 2023 024 [email or web address] Not available 12/27/2023 15:10:30 intraderm al allergy skin testing (PROC) 2023 024 [email or web address] Not available 12/27/2023 15:10:40 pulmonary function test procedure (PROC) 2023 024 [email or web address] Not available 12/27/2023 15:10:48 pulse oximetry (PROC) 2023 024 [email or web address] Not available 12/27/2023 15:15:49 Surgeries None recorded. Imaging CT, sinuses, w/o contrast 2023 024 SHAHNAZ [facility] [place], [address], [address], [place], [address], 01/31/2024 23:08:27 Medication Orders epinephri ne 0.3 mg/0.3 mL injection , auto-inje ctor 2024 025 [id number], [address] [place], [address], 05/29/2024 12:32:14 azelastin e 137 mcg (0.1 %) nasal spray 2024 025 [id number], [address] [place], [address], 05/29/2024 12:34:07 Patient TargetsNo targets recorded. Patient Instructions Encounter Date Encounter Id Patient Instructions Last Modified By Organization Details Last Modified Time 12/27/2023 [id number] Nursing Documentation for Allergy Testing: Ordering Provider [...] {{Fernanda Falk, CARLOS Johnson, ANA LILIA Waddell*}} [email or web address] Not available 12/27/2023 15:09:39 Reason for Referral [...] [facility] [address], [place], [address], 02/01/2024 08:28:32 05/29/19 25 audio gram No observ ation record ed. BARCODE Not Available 2024 15:14:57 Result Notes None recorded. Problems Name Problem SNOMED Code Status Onset Date Resolution Date Notes Provider Name and Address Organization Details Recorded Time Closed fracture of nasal bones 69480407 Active 2022 Fracture of nasal bones, initial encounter for closed fracture; Note: Date Diagnosed : 07/21/2022 10:06 AM (S02.2XXA ) Not Available Replaced by [facility] 4 02:14:15 Impacted cerumen in right ear 32223661535 82495 Active 2016 Impacted cerumen, right ear; Note: Date Diagnosed : 04/29/2016 4:34 PM (H61.21) Not Available Replaced by [facility] 4 02:13:30 Allergic rhinitis caused by pollen 23334360 Active 2019 Allergy NOS due to pollen; Note: Date Diagnosed : 11/16/2019 11:51 AM (J30.1) Not Available Replaced by [facility] 4 02:13:08 Impacted cerumen of bilateral ears 68673071675 75667 Active 2023 TATIANA DOLAN PA-C [address] [place] [address],[place] [address], [place], [address] , [facility] 4 14:04:01 Nasal congestio n 31250822 Active 2023 TATIANA DOLAN PA-C [address] [place] [address],[place] [address], [place], [address] , [facility] [place] 4 14:05:26 Allergic rhinitis 95610082 Active 2023 TATIANA DOLAN PA-C [address] [place] [address],[place] [address], [address] , [facility] [place] 4 14:05:34 Seasonal allergic rhinitis 678274825 Active 2023 TATIANA DOLAN PA-C [address] [place] [address],[place] [address], [place], [address] , [facility] [place] 4 14:05:34 Non-aller gic rhinitis 36505814733 1 Active 2023 TATIANA DOLAN PA-C [address] [facility],[place] [address], [place], [address] , [facility] [place] 4 14:05:34 Abnormal auditory perceptio n 81969263 Active 2024 TAYLOR GUPTA, AUD [address] [facility] 100, [place], [address] , [facility] 5 11:50:31 Problem Notes None recorded. Procedures Surgical History Date Name Laterality Status Provider Name and Address Organization Details Recorded Time 05/29/19 25 Air & Speech Audio with Tymps - 94243, 21268 & 67276 completed TAYLOR GUPTA, AUD [address] [facility],[place] [address], [place], [address], [facility] 05/29/2024 11:49:44 01/03/20 24 Allergy Testing-Full completed ANA LILIA STEPHEN [address] [facility],[place] [address], [place], [address], [facility] 01/03/2024 11:15:19 12/27/19 24 Allergy Testing Modified- Quantitative Testing (MQT) Only completed ANA LILIA STEPHEN [address] [facility],[place] [address], [place], [address], [facility] 12/27/2023 15:09:31 Imaging Results Imaging Date Name Status LastModified by Organ [facility] Details LastModified Time 07/15/2022 imaging/diagno stic result completed [email or web address] Information not available 12/01/2023 07:07:48 01/31/2024 CT, sinuses, w/o contrast completed ken [facility] [address], [place], [address], 02/01/2024 08:28:32 05/29/2024 audiogram completed BARCODE Information no t available 05/29/2024 15:14:57 Procedure Notes None recorded. Medical Equipment None Reported. Allergies Allergen ID Allergen Name Allergen Category Reaction Reaction Severity Criticality Documentation Date Start Date Code Code System Note Provider Name and Address Organization Details Recorded Time 83794 penicilli n V potassium medicatio n other Not available Not available 08/24/202317618 5 RxNorm React ion: unkno wn, unspe cifie d;; Not Available [facility]23 Medications Name Sig Start Date Stop [...] mg tablet 12/26 completed Medicati on ID: [id number] D uration Value: 10 Brand Name: predniso [...] e 137 mcg (0.1 %) nasal spray [place] 2 sprays twice a day by intranas [...] subcut kit 11/15 completed Medicati on ID: [id number] D uration Value: 28 Reason: () Brand [...] Updated DateTime 12/06/2023 190.5 cm 31.2 kg/m2 803860.09 g Violet Ramos [facility] 12/06/2023 13:48:51 Date Recorded Body height Body mass index (BMI) Body weight Oxygen saturation Oxygen saturation in Arterial blood by Pulse oximetry Heart rate Systolic blood pressure Diastolic blood pressure Provider Name and Address Organization Details Last Updated DateTime 190.5 cm 30 kg/m2 391979. 17 g 99 % 99 % 63 /min 121 mm[Hg] 83 mm[Hg] ANA LILIA STEPHEN [address] [place] [address], [address] [place] [address] [facility] 14:29:13 Date Recorded Body height Body mass index (BMI) Body weight Provider Name and Address Organization Details Last Updated DateTime 05/29/2024 190.5 cm 29.4 kg/m2 782431.21 g Dianna Pepe [facility] 05/29/2024 11:17:54 Social History None recorded. Functional Status None recorded. Mental Status None recorded. Family History Nothing Reported. Medical History No medical history recorded. Past Encounters Encounter ID Performer Location Encounter Start Date Encounter Closed Date Diagnosis/Indication Diagnosis SNOMED-CT Code Diagnosis ICD10 Code Diagnosis Note [id number] TATIANA DOLAN PA-C [facility] [address] [address] 12/06/2023 13:31:09 12/06/2023 13:55:51 Nasal congestion 62972931 R09.81 [id number] ANA LILIA STEPHEN Allergy [address] [place] [address] [address] 12/27/2023 14:12:56 12/27/2023 15:26:25 Allergic rhinitis 55269165 J30.9 [id number] ANA LILIA STEPHEN Allergy 100 [facility] it 100 [facility] [place] [address] 01/03/2024 10:16:10 01/03/2024 10:17:15 Allergic rhinitis 38168929 J30.9 [id number] TATIANA DOLAN PA-C [facility] [address] [place] [address] 05/29/2024 11:04:38 05/29/2024 12:04:22 Nasal congestion 51517134 R09.81 Allergic rhinitis 867222 04 J30.89 Abnormal a uditory perception 83349992 H93.299 Right Ear:Normal hearing with excellent speech discrimina tion.Type A tympanogra m.Left Ear:Normal hearing with excellent speech discrimina tion.Type A tympanogra m. Health Concerns Section Related Observation LastModified by Organization Detai ls LastModified Time None Recorded Concern Status LastModified by Organization Details LastModified Time None Recorded Advance Directives Directive None Recorded Payers Insurance Date Sequence Insurance Name Policy Number Policy [place] Covered Member ID En[place]orado Member ID Guarantor Name 07/14/2024 1 [facility] [place] [place] [id number] Tyler Cohenos [id number] Tyler Cohenos 05/26/2024 2 [facility] ([facility]) Tyler Cohenos [id number] Tyler Mccann Notes Date Note Type [...] of sinus infections. CARO DUNCAN MD 100 [facility],[address], [address], [facility] 12/07/2023 16:32:07 05/29/2024 text/html 28-year-old male presents for review of allergy testing and CT sinus. He has been using Flonase daily without improvement. CT sinus was also ordered. He continues to have nasal congestion, sneezing, rhinorrhea, decreased sense of smell, and facial pressure. No history of recurrent sinusitis. Also notes decreased hearing bilaterally for a few years. ARNEL BUNN MD [address] [place] [address], [place], [address], [facility] 05/29/2024 17:08:31
== END 2024-08-16 13:40 | disposition home or self-care (01) ==
PROVIDERS: PCP Nurse Practitioner Family; Visit Provider Physician Assistant
DX: R06.00 Dyspnea, unspecified (principal)

== ENCOUNTER → 2024-08-16 13:18 | Outpatient (BNV) | payer OTHER, SELFPAY | PROVIDERS: PCP Nurse Practitioner Family; Visit Provider Radiology Diagnostic Radiology | DX: R06.00 Dyspnea, unspecified (principal) | CPT/HCPCS: 71046 ==

== ENCOUNTER 2024-08-21 11:41 | Outpatient (AMB) | payer OTHER, SELFPAY ==
--- NOTE | 2024-08-21 11:46 | AM.OFFWIN_ITS ---
Intake Vital Signs 08/21/24 11:47 BP 122/80 Blood Pressure Location Rt brachial Position Sitting Pulse 72 Pulse Source Pulse Oximeter Temp 98.5 F Temp Source Oral Pulse Oximetry (%) 98 Oxygen Delivery Method Room Air Intake Visit Reasons: EP LT ear discomfort Intake Note: Patient here for left ear pain that has been present for 2 weeks. Patient Tobacco Use Status: Never used Tobacco Allergies penicillin V Allergy (Intermediate, Verified 08/21/24 11:47) rash Do you need a note to return to daycare/school/sports/work: No HPI HPI Comments History of Present Illness Details History of Present Illness - The patient is a 29-year-old male pres enting with ear problems, specifically drainage and discomfort. - He was evaluated at an urgent care fac ility two weeks ago and was diagnosed with an ear infection for which he received a Z-Travis, providing initial relief. - Symptoms include bilateral ear drainag e, primarily watery, prominent in the left ear, and intermittent pain without fever. - Previous treatment for swimmer's ear w ith drops noted. Physical Exam General: Cooperative, healthy appearing, comfortable, no acute distress and well developed Orientation: Patient oriented x3 Limitations: No limitations Head: Normal to inspection Ears: bilateral erythema and edema in EAC's, TM's normal bilat, external ears normal, hearing grossly normal Nose: Normal External nose present Face and sinus: Normal facial exam Eyes: Appearance normal, both eyes and all related structures Neck: Normal visual inspection and Yes full ROM Respiratory: Normal respiratory effort and able to speak in complete sentences Skin: No rashes or lesions noted Neuro: Patient oriented x3 Extremities: Normal to inspection PENDING SALE TO [facility] Medical History (Updated 08/21/24 @ 11:59 by Ronit Romero PA-C) Anemia Crohn's disease ADHD (attention deficit hyperactivity disorder) 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 Mother Hypertension Maternal Grandfather Diabetes Stroke Other Anemia Social History (Reviewed 07/12/24 @ 14:27 by Lisbeth White [facility]) Household Members: Friend(s) Housing: Apartment Are you a primary hearing care practitioner to a significant other at home: No Do you presently have visiting nurse or other home services: No Alcohol intake: never Patient Tobacco Use Status: Never used Tobacco e-Cigarette/Vaping Use: Never Used Second Hand Smoke Exposure: No service: No Current occupational status: employed Current occupation: [employer] Cognitive needs: No Hearing needs: No Vision needs: No Review of Systems Const All systems reviewed & are unremarkable except as noted in HPI and below Physical Exam Vital Signs: Last Vital Signs Temp 98.5 F 08/21/24 11:47 Pulse 72 08/21/24 11:47 BP 122/80 08/21/24 11:47 Pulse Ox 98 08/21/24 11:47 Oxygen Delivery Method Room Air 08/21/24 11:47 Assessment & Plan Assessment & Plan (1) Bilateral otitis externa: Code(s): H60.93 - Unspecified otitis externa, bilateral Qualifiers: Otitis externa type: other infective Chronicity: acute Qualified Code(s): H60.393 - Other infective otitis externa, bilateral Plan: The patient is prescribed otic drops containing an antibiotic and a steroid for bilateral Otitis Externa, with instructions to use four drops in each ear four times daily for seven days. The steroid is expected to provide immediate symptomatic relief, while the antibiotic targets any residual bacteria. The patient should not discontinue treatment prematurely despite symptomatic relief. The prescription is to be filled at the specified pharmacy. Proper administration was discussed to ensure therapeutic effectiveness. Patient was informed and verbally consented to the use of an ambient scribe for clinic note documentation during this visit. Medications: New wzbwocdg-[id number]-ZL 3.5-10,000-1 mg/mL-unit/mL-% 4 drps otic (ears) QID 7 days 20 mL 0RF Coding Level of Care Code Est Pt Level 3 (91055) Diagnoses Other infective acute otitis externa of both ears H60.393 Otitis externa type: other infective Chronicity: acute
[2024-08-21 11:47] VITALS: BP 122/80; PULSE 72; TEMP 36.9; O2SAT 98
--- OUTSIDE RECORDS SUMMARY | 2024-08-21 12:27 | XMS_ITS | Data Portability ---
Author Organization [place] - [facility], Allergy Address [address] [address] Care Team Providers Care Optical Instrument Inspector Name Role Phone YARIEL PANDEY Primary Care [...] discussed the risk of anaphylaxis with this. [email or web address] Not available 05/29/2024 12:35:44 Plan of Treatment Reminders Order Date Submit Date Provider Last Modified By Organization Details Last Modified Time Details Appointments Establish ed 15 2024 02:15P Matt DOLAN PA-C Not available Not available Not available Establish ed 15 2024 10:30A Matt DOLAN PA-C Not available Not available Not available Lab None recorded. Referral None recorded. Procedures allergen immunothe rapy; multiple injection s (PROC) 2024 025 [email or web address] Not available 06/06/2024 12:50:31 allergy testing, skin prick (PROC) 2023 024 [email or web address] Not available 12/27/2023 15:10:30 intraderm al allergy skin testing (PROC) 2023 024 Not available 12/27/2023 15:10:40 pulmonary function test procedure (PROC) 2023 024 [email or web address] Not available 12/27/2023 15:10:48 pulse oximetry (PROC) 2023 024 [email or web address] Not available 12/27/2023 15:15:49 Surgeries None recorded. Imaging CT, sinuses, w/o contrast 2023 024 BRU[facility] [place], [address] [facility], [place], [address], 01/31/2024 23:08:27 Medication Orders epinephri ne 0.3 mg/0.3 mL injection , auto-inje ctor 2024 025 [facility] #[id number], [address] [place], [address], 05/29/2024 12:32:14 azelastin e 137 mcg (0.1 %) nasal spray 2024 025 [facility]armacy #[id number], [address] [place], [address], 05/29/2024 12:34:07 Patient TargetsNo targets recorded. Patient Instructions Encounter Date Encounter Id Patient Instructions Last Modified By Organization Details Last Modified Time 12/27/2023 [id number] Nursing Documentation for Allergy Testing: Ordering Provider [...] ? Written by: {{CARLOS Song, Jerry Waddell*}} Not available 12/27/2023 15:09:39 Reason for Referral [...] [facility] [address], [place], [address], 02/01/2024 08:28:32 05/29/19 25 audio gram No observ ation record ed. BARCODE Not Available 2024 15:14:57 Result Notes None recorded. Problems Name Problem SNOMED Code Status Onset Date Resolution Date Notes Provider Name and Address Organization Details Recorded Time Closed fracture of nasal bones 39104361 Active 2022 Fracture of nasal bones, initial encounter for closed fracture; Note: Date Diagnosed : 07/21/2022 10:06 AM (S02.2XXA ) Not Available [facility] 4 02:14:15 Impacted cerumen in right ear 36002127474 00563 Active 2016 Impacted cerumen, right ear; Note: Date Diagnosed : 04/29/2016 4:34 PM (H61.21) Not Available [facility] 4 02:13:30 Allergic rhinitis caused by pollen 21477585 Active 2019 Allergy NOS due to pollen; Note: Date Diagnosed : 11/16/2019 11:51 AM (J30.1) Not Available [facility] 4 02:13:08 Impacted cerumen of bilateral ears 29041055324 21304 Active 2023 TATIANA DOLAN PA-C [address] [facility],[place] [address], [place], [address] , [place] - [facility] [place] 4 14:04:01 Nasal congestio n 05134915 Active 2023 TATIANA DOLAN PA-C [address] [place] [address],[place] [address], [place], [address] , [place] - [facility] [place] 4 14:05:26 Allergic rhinitis 31941148 Active 2023 TATIANA DOLAN PA-C [address] [facility],[place] [address], [place], [address] , [facility] - [facility] [place] 4 14:05:34 Seasonal allergic rhinitis 371460494 Active 2023 TATIANA DOLAN PA-C [address] [facility],[address], [place], [address] , [facility] - [facility] [place] 4 14:05:34 Non-aller gic rhinitis 11217925964 1 Active 2023 TATIANA DOLAN PA-C [address], [place], [address] , [facility] - [facility] [place] 4 14:05:34 Abnormal auditory perceptio n 16315150 Active 2024 TAYLOR GUPTA, AUD [address] [facility],[place] [address], [place], [address] , [facility] - [facility] 5 11:50:31 Problem Notes None recorded. Procedures Surgical History Date Name Laterality Status Provider Name and Address Organization Details Recorded Time 05/29/19 25 Air & Speech Audio with Tymps - 27258, 33142 & 35071 completed JEAN CLAUDE RENTERIA [address] [facility],[place] [address], [place], [address], [facility] - [facility] 05/29/2024 11:49:44 01/03/20 24 Allergy Testing-Full completed ANA LILIA STEPHEN [address] [facility],[place] [address], [place], [address], [facility] 01/03/2024 11:15:19 12/27/19 24 Allergy Testing Modified- Quantitative Testing (MQT) Only completed ANA LILIA STEPHEN [address] [facility],[place] [address], [place], [address], [facility] 12/27/2023 15:09:31 Imaging Results Imaging Date Name Status LastModified by [facility] Details LastModified Time 07/15/2022 imaging/diagno stic result completed [email or web address] Information not available 12/01/2023 07:07:48 01/31/2024 CT, sinuses, w/o contrast completed ken [facility] [address] [facility] [address], [place], [address], 02/01/2024 08:28:32 05/29/2024 audiogram completed BARCODE Information no t available 05/29/2024 15:14:57 Procedure Notes None recorded. Medical Equipment None Reported. Allergies Allergen ID Allergen Name Allergen Category Reaction Reaction Severity Criticality Documentation Date Start Date Code Code System Note Provider Name and Address Organization Details Recorded Time 86175 penicilli n V potassium medicatio n other Not available Not available 08/24/202378133 5 RxNorm React ion: unkno wn, unspe [...] mg tablet 12/26 completed Medicati on ID: [id number] D uration Value: 10 Brand Name: predniso [...] e 137 mcg (0.1 %) nasal spray [place] 2 sprays twice a day by intranas [...] subcut kit 11/15 completed Medicati on ID: [id number] D uration Value: 28 Reason: () Brand [...] Updated DateTime 12/06/2023 190.5 cm 31.2 kg/m2 900416.09 g Violet Cohenos [facility] 12/06/2023 13:48:51 Date Recorded Body height Body mass index (BMI) Body weight Oxygen saturation Oxygen saturation in Arterial blood by Pulse oximetry Heart rate Systolic blood pressure Diastolic blood pressure Provider Name and Address Organization Details Last Updated DateTime 190.5 cm 30 kg/m2 231342. 17 g 99 % 99 % 63 /min 121 mm[Hg] 83 mm[Hg] ANA LILIA STEPHEN [address] [place] [address], [address] [place] [address] Ear [facility] 14:29:13 Date Recorded Body height Body mass index (BMI) Body weight Provider Name and Address Organization Details Last Updated DateTime 05/29/2024 190.5 cm 29.4 kg/m2 427990.21 g Dianna Cantu [facility] Ear [facility] 05/29/2024 11:17:54 Social History None recorded. Functional Status None recorded. Mental Status None recorded. Family History Nothing Reported. Medical History No medical history recorded. Past Encounters Encounter ID Performer Location Encounter Start Date Encounter Closed Date Diagnosis/Indication Diagnosis SNOMED-CT Code Diagnosis ICD10 Code Diagnosis Note [id number] TATIANA DOLAN PA-C [facility] of [address] [address] 12/06/2023 13:31:09 12/06/2023 13:55:51 Nasal congestion 99462122 R09.81 [id number] ANA LILIA STEPHEN Allergy [address] [place] [address] [address] 12/27/2023 14:12:56 12/27/2023 15:26:25 Allergic rhinitis 58069040 J30.9 [id number] ANA LILIA STEPHEN Allergy [address] [place] [address] 01/03/2024 10:16:10 01/03/2024 10:17:15 Allergic rhinitis 39697898 J30.9 [id number] TATIANA DOLAN PA-C [facility] of [facility] [address] [place] [address] 05/29/2024 11:04:38 05/29/2024 12:04:22 Nasal congestion 17097607 R09.81 Allergic rhinitis 255434 04 J30.89 Abnormal a uditory perception 11226298 H93.299 Right Ear:Normal hearing with excellent speech [...] Enamorado Member ID Guarantor Name 07/14/2024 1 [facility] ([facility] [id number] Tyler Cohenos [id number] Tyler Mccann 05/26/2024 2 [facility] ([facility] Tyler Flores Mccann [id number] Tyler Cohenos Notes Date Note Type Note Provider Name [...] history of sinus infections. CARO DUNCAN MD [address] [place] [address],[address] [place], [address], [facility] [...] years. ARNEL BUNN MD [address] [facility], [place], [address], [facility] 05/29/2024 17:08:31
== END 2024-08-21 12:13 | disposition home or self-care (01) ==
PROVIDERS: PCP Nurse Practitioner Family; Visit Provider Physician Assistant
DX: H60.393 Other infective otitis externa, bilateral (principal)

== ENCOUNTER → 2024-08-21 11:41 | Outpatient (BNVA) | payer OTHER, SELFPAY | PROVIDERS: PCP Nurse Practitioner Family; Visit Provider Physician Assistant | DX: H60.393 Other infective otitis externa, bilateral (principal) | CPT/HCPCS: 99212 ==

== ENCOUNTER 2024-08-28 09:00 | Outpatient (RCR) | payer OTHER, SELFPAY ==
--- NOTE | 2024-07-24 09:43 | MHC.PT.EP ---
[facility] [place] [facility] [place] [facility] [place] [facility] [address] Tim Glez [address] [phone] F: [phone] F: [phone] F: [phone] F: [phone] Physical Therapy Plan of Care Date of Evaluation: 07/24/24 Date of Surgery: Diagnosis: low back pain due to bilateral sciatica Assessment: Patient is a 29 year old R handed male who presents with s/s consistent with low back pain due to bilateral sciatica. He works with daily job demands including [employer] with about 10,000 steps per day. Patient past medical history includes chrohns, ADHD, b/l knee valgus and arthroscopies. Current impairments include pain, posture, flexibility, ROM, strength, activity tolerance and functional mobility. Functional limitations include decreased ability to bend, lift, carry, walk, sit, push, and pull. Patient is motivated with good rehab potential. Skilled PT will address impairments and functional limitations in order to achieve goals. Frequency and Duration: The patient will be seen 2x/week for 5 weeks Short Term Goals: I with HEP - 2 weeks AROM rotation 75% and pain free - 3 weeks 90/90 lacking 30 or less - 3 weeks Intermediate Goals: Max pain with ADLs 3/10 - 5 weeks Oswestry 20% or less - 5 weeks hip strength 4+/5 grossly - 5 weeks symmetrical ext and flexion ROM - 5 weeks Treatment Plan: Modalities to reduce pain, spasms and effusion. Manual therapy to restore motion and function. Therapeutic exercise to improve strength and flexibility. Neuromuscular re-education for posture and balance. Therapeutic activities to return to functional activities of daily living. Electronically signed by: Tyler Barnes, PT Please sign and return to therapist. Thank you for your referral.
--- NOTE | 2024-10-31 10:18 | MHC.PT.DC ---
[facility] [place] Office [place] Office [place] Office [address] Tim Glez [address] [phone] F: [phone] F: [phone] F: [phone] F: [phone] Physical Therapy Discharge Report Diagnosis: low back pain due to bilateral sciatica Date of Surgery: Date of Evaluation: 07/24/24 Date of Discharge: 09/12/24 Treatments to Date: 5 Cancellations to Date: No Shows to Date: Discharge Status: Independent with HEP Patient Elected to Stop Discharge Summary: 08/28/24: pt has been feeling better overall with less pain. follows cues and commands well. able to progress hip and core strength today without adverse reacitons. 08/23; Pt had R HS cramping with bridge rested and resolved. Pt positioned prone with pillow under hips. 08/16; Pt exp pain with prone to supine transfer. NV pillow under pelvis. 08/09; Pt fatigued form exs. Pt had reduced sxs 5 after RX. Pt has R>L knee knock knees. Discussed a brace. Pt 07/26/24: pt has been feeling better since eval. notes feeling looser with stretching. motivated with HEP. issued updated HEP with bands. Patient is a 29 year old R handed male who presents with s/s consistent with low back pain due to bilateral sciatica. He works with daily job demands including [employer] with about 10,000 steps per day. Patient past medical history includes chrohns, ADHD, b/l knee valgus and arthroscopies. Current impairments include pain, posture, flexibility, ROM, strength, activity tolerance and functional mobility. Functional limitations include decreased ability to bend, lift, carry, walk, sit, push, and pull. Patient is motivated with good rehab potential. Skilled PT will address impairments and functional limitations in order to achieve goals. Electronically signed by: Tyler Barnes, PT Please sign and return to therapist. Thank you for your referral.
== END 2024-10-31 10:18 | disposition home or self-care (01) ==
LOC: HO.PTCHIC 09:00
PROVIDERS: PCP Nurse Practitioner Family; Visit Provider Physician Assistant
DX: M54.41 Lumbago with sciatica, right side (principal); M54.42 Lumbago with sciatica, left side
CPT/HCPCS: 97110; 97112; 97140; 97162

== ENCOUNTER 2024-09-05 08:51 | Outpatient (AMB) | payer OTHER, SELFPAY ==
[2024-09-05 09:02] VITALS: BP 118/80; PULSE 81; O2SAT 98; BMI 32.5
--- NOTE | 2024-09-05 09:02 | MHC.OFFWIV ---
Intake Vital Signs 09/05/24 09:02 Height 6 ft 3 in Weight 260 lb BMI 32.5 BP 118/80 Blood Pressure Location Rt brachial Position Sitting Pulse 81 Pulse Source Pulse Oximeter Pulse Oximetry (%) 98 Oxygen Delivery Method Room Air Intake Visit Reasons: PE Crohn's flare up? Patient Tobacco Use Status: Never used Tobacco Allergies penicillin V Allergy (Intermediate, Verified 09/05/24 09:12) rash Do you need a note to return to daycare/school/sports/work: Yes HPI HPI Comments History of Present Illness Details 29 y/o Male patient who presents to the walk in clinic with c/o Abdominal pain associated with diarrhea that started this morning. Pt has h/o Crohn's disease and he is under the care of GI (Dr. Khan). He was last seen 06/2024 and did receive an infusion of Entivyo. Next dose September 2024. Pt believes this is a Flare-up , just needs rest and hydration. He is here today because he wants a work note to stay home. 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 Mother Hypertension Maternal Grandfather Diabetes Stroke Other Anemia Social History Household Members: Friend(s) Housing: Apartment Are you a primary health care facility administrator to a significant other at home: No Do you presently have visiting nurse or other home services: No Alcohol intake: never Patient Tobacco Use Status: Never used Tobacco e-Cigarette/Vaping Use: Never Used Second Hand Smoke Exposure: No service: No Current occupational status: employed Current occupation: [employer] Cognitive needs: No Hearing needs: No Vision needs: No Review of Systems Const All systems reviewed & are unremarkable except as noted in HPI and below Physical Exam Vital Signs: Last Vital Signs Pulse 81 09/05/24 09:02 BP 118/80 09/05/24 09:02 Pulse Ox 98 09/05/24 09:02 Oxygen Delivery Method Room Air 09/05/24 09:02 BMI result Body Mass Index 32.5 Const General: no acute distress Nutritional Appearance: overweight Orientation/consciousness: patient oriented x3 GI Inspection: Yes Abdominal panniculus present Palpation (GI): Soft to palpation, not firm, Tenderness to palpation present (GI) in the epigastrum, no guarding, not rigid and No hepatosplenomegaly present Auscultation: normal bowel sounds Neuro General: patient oriented x3, gait normal and moves all extremities Assessment & Plan Assessment & Plan (1) Abdominal pain: Code(s): R10.9 - Unspecified abdominal pain Qualifiers: Abdominal location: epigastric Qualified Code(s): R10.13 - Epigastric pain Plan: Advised to f/u with GI. Advised ED if symptoms worse. Continue taking Carafate and diet modifications. Coding Level of Care Code Est Pt Level 4 (72248) Diagnoses Epigastric pain R10.13 Abdominal location: epigastric Time Spent (min) 20
--- OUTSIDE RECORDS SUMMARY | 2024-09-05 09:13 | XMS_ITS | Data Portability ---
Author Organization [place] - [facility], Allergy Address [address] [address] Care Team Providers Care Axle Polisher Name Role Phone YARIEL PANDEY Primary Care Provider YARIEL VIZCARRA Primary Care Provider [phone] Assessment Encounter Date Assessment Date Assessment LastModified [...] discussed the risk of anaphylaxis with this. [email or web address] Not available 05/29/2024 12:35:44 Plan of Treatment [...] allergy testing, skin prick (PROC) 2023 024 [email or web address] Not available 12/27/2023 15:10:30 intraderm al allergy skin testing (PROC) 2023 024 Not available 12/27/2023 15:10:40 pulmonary function test procedure (PROC) 2023 024 [email or web address] Not available 12/27/2023 15:10:48 pulse oximetry (PROC) 2023 024 [email or web address] Not available 12/27/2023 15:15:49 Surgeries None recorded. Imaging CT, sinuses, w/o contrast 2023 024 [place] [facility] [place], [address], [place], [address], 01/31/2024 23:08:27 Medication Orders epinephri ne 0.3 mg/0.3 mL injection , auto-inje ctor 2024 025 [facility] #[id number], [address] [place], [address], 05/29/2024 12:32:14 azelastin e 137 mcg (0.1 %) nasal spray 2024 025 [facility] #[id number], [address] [place], [address], 05/29/2024 12:34:07 Patient TargetsNo targets recorded. Patient Instructions Encounter Date Encounter Id Patient Instructions Last Modified By Organization Details Last Modified Time 12/27/2023 [id number] Nursing Documentation for Allergy Testing: Ordering Provider Dr. Galarza Weight:lbs: kg: PFT Yes With Bronchodilator no approval needed to proceed with allergy testing? Yes Dr. Bunn ok'd testing YesHistory of Asthma:No Asthma Meds: Last used: Asthma exacerbated by: Chance that : N/A Fear of needles: No Regular medications reviewed in Computer: Yes Medication allergies: Reviewed Antihistamine use: No Medications used: Food Allergies: none Any foods make your mouth feeling itchy: No If yes: History of severe reaction where had to go to ER? 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 Symptoms having: Headache If other: runny nose, can't beath, head pressure, watery eyes, itchy Frequency Year Round Spirometry Contraindications: Heart attack in the last 3 months: No Major surgery in last 3 months: No Detached retina(serious eye issues) in last 2 months: No Hospitilization in last month: No Proceed with PFT Yes approval needed: Yes Nursing Notes: Pt tolerated test well Yes Benadryl cream to test sites Yes Patient became syncopal-placed in supine position No Large reactions to MQT, reschedule IDT for a different date Yes Other: Written by: Luzmaria Waddell [email or web address] Not available 12/27/2023 15:09:39 Reason for Referral [...] ken [facility] [address], [place], [address], 02/01/2024 08:28:32 05/29/19 25 audio gram No observ ation record ed. BARCODE Not Available 2024 15:14:57 Result Notes None recorded. Problems Name Problem SNOMED Code Status Onset Date Resolution Date Notes Provider Name and Address Organization Details Recorded Time Closed fracture of nasal bones 64698393 Active 2022 Fracture of nasal bones, initial encounter for closed fracture; Note: Date Diagnosed : 07/21/2022 10:06 AM (S02.2XXA ) Not Available [facility] 4 02:14:15 Impacted cerumen in right ear 20971106990 09403 Active 2016 Impacted cerumen, right ear; Note: Date Diagnosed : 04/29/2016 4:34 PM (H61.21) Not Available [facility] 4 02:13:30 Allergic rhinitis caused by pollen 83536867 Active 2019 Allergy NOS due to pollen; Note: Date Diagnosed : 11/16/2019 11:51 AM (J30.1) Not Available [facility] 4 02:13:08 Impacted cerumen of bilateral ears 08244419087 20326 Active 2023 TATIANA DOLAN PA-C [address] [place] [address], [place], [address] , [facility] - [facility] [place] 4 14:04:01 Nasal congestio n 94256216 Active 2023 TATIANA DOLAN PA-C [address] [facility],[place] [address], [place], [address] , [facility] - [facility] [place] 4 14:05:26 Allergic rhinitis 48115492 Active 2023 TATIANA DOLAN PA-C [address] [facility],[place] [address], [place], [address] , [facility] - [facility] [place] 4 14:05:34 Seasonal allergic rhinitis 892176984 Active 2023 TATIANA ODLAN PA-C [address] [facility],[place] [address], [place], [address] , [place] - [facility] [place] 4 14:05:34 Non-aller gic rhinitis 23484390934 1 Active 2023 TATIANA DOLAN PA-C [address] [facility],[place] [address], [place], [address] , [facility] - [facility] [place] 4 14:05:34 Abnormal auditory perceptio n 75147431 Active 2024 JEAN CLAUDE RENTERIA [address] [facility],[place] [address], [place], [address] , [facility] - [facility] 5 11:50:31 Problem Notes None recorded. Procedures Surgical History Date Name Laterality Status Provider Name and Address Organization Details Recorded Time 05/29/19 25 Air & Speech Audio with Tymps - 86804, 58804 & 13117 completed JEAN CLAUDE RENTERIA [address] [facility],[place] [address], [place], [address], [facility] - [facility] [place] 05/29/2024 11:49:44 01/03/20 24 Allergy Testing-Full completed ANA LILIA STEPHEN [address] [facility],[place] [address], [place], [address], [facility] - [facility] [place] 01/03/2024 11:15:19 12/27/19 24 Allergy Testing Modified- Quantitative Testing (MQT) Only completed LUZMARIA WADDELL, [facility] [address] [facility],[place] [address], [place], [address], [facility] - [facility] 12/27/2023 15:09:31 Imaging Results None recorded. Procedure Notes None recorded. Medical Equipment None Reported. Allergies Allergen ID Allergen Name Allergen Category Reaction Reaction Severity Criticality Documentation Date Start Date Code Code System Note Provider Name and Address Organization Details Recorded Time 79741 penicilli n V potassium medicatio n other Not available Not available 08/24/2023 5 RxNorm React ion: unkno wn, unspe cifie d;; Not Available [facility] 00:50:23 Medications Name Sig Start [...] mg tablet 12/26 completed Medicati on ID: [id number] D uration Value: 10 Brand Name: predniso [...] e 137 mcg (0.1 %) nasal spray [place] 2 sprays twice a day by intranas [...] Not Available Not Available No t Available Billyira Pen Crohn's-U lc Colitis-H id Sup Starter 40 mg/0.8 mL subcut kit 11/15 completed Medicati on ID: [id number] D uration Value: 28 Reason: () Brand [...] Updated DateTime 05/29/2024 190.5 cm 29.4 kg/m2 014343.21 g Dianna Cantu [facility] 05/29/2024 11:17:54 Date Recorded Body height Body mass index (BMI) Body weight Provider Name and Address Organization Details Last Updated DateTime 12/06/2023 190.5 cm 31.2 kg/m2 597306.09 g Violet Mccann [facility] 12/06/2023 13:48:51 Date Recorded Body height Body mass index (BMI) Body weight Oxygen saturation Oxygen saturation in Arterial blood by Pulse oximetry Heart rate Systolic And Diastolic Provider Name and Address Organization Details Last Updated DateTime 190.5 cm 30 kg/m2 193406. 17 g 99 % 99 % 63 /min 121/83 mm[Hg] LUZMARIA WADDELL [address], [address] [place] [address] [facility] 14:29:13 Social History None recorded. Functional Status None recorded. Mental Status None recorded. Family History Nothing Reported. Medical History No medical history recorded. Past Encounters Encounter ID Performer Location Encounter Start Date Encounter Closed Date Diagnosis/Indication Diagnosis SNOMED-CT Code Diagnosis ICD10 Code Diagnosis Note [id number] TATIANA DOLAN PA-C [facility] [address] [address] 12/06/2023 13:31:09 12/06/2023 13:55:51 Nasal congestion 41360521 R09.81 [id number] LUZMARIA JEFFY A Allergy 100 [facility],[address] [place] [address] 12/27/2023 14:12:56 12/27/2023 15:26:25 Allergic rhinitis 73015075 J30.9 [id number] LUZMARIA JEFFY RMA Allergy 100 [facility],[address] [place] [address] 01/03/2024 10:16:10 01/03/2024 10:17:15 Allergic rhinitis 16024341 J30.9 [id number] TATIANA DOLAN PA-C [facility] of [facility] 100 [place] [address] 05/29/2024 11:04:38 05/29/2024 12:04:22 Nasal congestion 28534865 R09.81 Allergic rhinitis 313103 04 J30.89 Abnormal a uditory perception 77354096 H93.299 Right Ear:Normal hearing with excellent speech [...] Enamorado Member ID Guarantor Name 07/14/2024 1 [facility] ([facility] [id number] Tyler Cohenos [id number] Tyler Cohenos 05/26/2024 2 [facility] ([facility] Tyler Cohenos [id number] Tyler Cohenos Notes Date Note Type [...] of sinus infections. CARO DUNCAN MD 100 [facility],[place] [address], [place], [address], [facility] 12/07/2023 16:32:07 05/29/2024 text/html 28-year-old male presents for review of allergy testing and CT sinus. He has been using Flonase daily without improvement. CT sinus was also ordered. He continues to have nasal congestion, sneezing, rhinorrhea, decreased sense of smell, and facial pressure. No history of recurrent sinusitis. Also notes decreased hearing bilaterally for a few years. ARNEL BUNN MD 100 [facility] [address], [place], [address], [facility] 05/29/2024 17:08:31
== END 2024-09-05 09:21 | disposition home or self-care (01) ==
PROVIDERS: PCP Nurse Practitioner Family; Visit Provider Nurse Practitioner Family
DX: R10.13 Epigastric pain (principal)

== ENCOUNTER → 2024-09-05 08:51 | Outpatient (BNVA) | payer OTHER, SELFPAY | PROVIDERS: PCP Nurse Practitioner Family; Visit Provider Nurse Practitioner Family | DX: R10.13 Epigastric pain (principal); K50.90 Crohn's disease, unspecified, without complications | CPT/HCPCS: 99212 ==

== ENCOUNTER 2024-09-11 14:58 | Outpatient (AMB) | payer OTHER, SELFPAY ==
--- NOTE | 2024-09-11 14:44 | MHC.OFFVISPS ---
Intake Intake Visit Reasons: f/u consultation Investigations Director Required: No Allergies penicillin V Allergy (Intermediate, Verified 09/05/24 09:12) rash Medication List - Last Reconciled 09/11/24 by Jacquelyn Cleveland APRN acetaminophen (Tylenol Extra Strength) 500 mg PO Q6H PRN hydroxyzine HCl 25 mg orally Take one tablet daily if needed for anxiety and take 1-2 before bedtime as needed PRN; 30 days ibuprofen 600 mg PO Q8H PRN lisdexamfetamine (Vyvanse) 30 mg PO QAM 30 days magnesium glycinate 87.5 tabs PO QID magnesium L-threonate mg PO melatonin 3 mg PO BEDTIME PRN miscellaneous medical supply (Blood Pressure Cuff) blood pressure checks daily and as needed large cuff please omeprazole 40 mg PO DAILY 90 days [Pentadeca Arginate (Pda) 500 mcg PO DAILY] sucralfate 10 mL PO BID testosterone cypionate 140 mg IM QWEEK HPI- Psychiatric Chief Complaint: f/u consultation HPI Narrative: pt reports no change in symptoms. He continues to worry about his health. He has recently has an ear infection. He also had dental work today. We discussed how anxiety can make people obsess about their health and thta this causes stress and can increase anxiety; it can include fatigue, shortness of breath, palpitations, poor sleep. We reviewed his recentl testsincluding his EKG, Head CT and chest xray. He is agreeable to try buspar for anxiety.He does not want to take an SSRI such as prozac, zoloft, lexapro. He does not have calvin in those. We discussed how busapr works; We also discussed how therapy could help anxiety. Past Psychiatric History: [facility] for therapy 1 session. no IPLOC Subjective Subjective Subjective Medication Compliance: Yes Side effects from medications: No Review of Systems Medical Review of Systems: unchanged Mental Status Exam Mental Status Exam Patient Appearance: Well Grooomed and Appropriate Patient Orientation: Person, Place, Time and Situation Level of Consciousness: Awake and Appropriate Patient Behavior: Appropriate Mood Description: Constricted and Anxious Affect Description: Constricted and Anxious Patient Cognition Impaired: No Ability to Follow Directions: Good Speech Pattern: Clear and Appropriate Memory Description: Intact Hallucinations: None Delusions: Not Present Thought Process: Intact and Goal Oriented Thought Content: positive for Intact and positive for Goal Oriented Judgement: Fair Assessment and Plan Assessment & Plan (1) CHARLEEN (generalized anxiety disorder): Status: Acute Code(s): F41.1 - Generalized anxiety disorder (2) ADHD (attention deficit hyperactivity disorder): Status: Acute Qualifiers: Attention deficit-hyperactivity disorder type: predominantly inattentive Qualified Code(s): F90.0 - Attention-deficit hyperactivity disorder, predominantly inattentive type Code(s): F90.9 - Attention-deficit hyperactivity disorder, unspecified type Plan rule out OCD start buspar 5 mg BID small snack of protein prior to bed to reduce likelihood of waking iin middle of night Medications: New buspirone 5 mg PO BID 60 tabs 2RF Refilled hydroxyzine HCl 25 mg orally Take one tablet daily if needed for anxiety and take 1-2 before bedtime as needed PRN; 90 tabs 1RF anxiety 30 days Counseling and coordination of Care Pt. Self Management counseling: General coping skills and Problem solving Medication management counseling: Effectiveness, Side effects, Dosing range, Duration, Drug interaction and Adherence Diagnosis and Prognosis Counseling: Accuracy of diagnosis, Prognosis over time, Impact of diagnosis on life functions and Adequacy of current interventions Details: I spent 40 minutes reviewing the record, seeing the patient and documenting in the medical record. Counseling provided to the patient/caregiver as outlined below. Addressed patient/caregiver concerns regarding current medication regime including effective adherence. Addressed patient/caregiver concerns regarding diagnosis and prognosis including accuracy of diagnosis, prognosis over time, impact of diagnosis. Addressed patient/caregiver concerns regarding impact of recent stressors. 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 Mother Hypertension Maternal Grandfather Diabetes Stroke Other Anemia Social History Household Members: Friend(s) Housing: Apartment Are you a primary patient care manager to a significant other at home: No Do you presently have visiting nurse or other home services: No Alcohol intake: never Patient Tobacco Use Status: Never used Tobacco e-Cigarette/Vaping Use: Never Used Second Hand Smoke Exposure: No service: No Current occupational status: employed Current occupation: [employer] Cognitive needs: No Hearing needs: No Vision needs: No Social History: Patient is single he lives with his mother and his 20-year-old brother works full-time as a executive staff assistant for [employer] he reports lifelong history of anxiety and ADHD but was able to manage it until 2 years ago when the demands on his skills increase he reports that he was seeing a school counselor when he was in school he reports he did not do well in school and had trouble with consistency. He was unemployed until 2 years ago when he decided to try to get a job. Substance History: No substance use Trauma History: Diagnosed with Crohn's disease as a child Coding Level of Care Code Tele Est Pt Level 4 (82616) Diagnoses CHARLEEN (generalized anxiety disorder) F41.1 Attention deficit hyperactivity disorder (ADHD), predominantly inattentive type F90.0 Attention deficit-hyperactivity disorder type: predominantly inattentive
--- OUTSIDE RECORDS SUMMARY | 2024-09-11 16:13 | XMS_ITS | Data Portability ---
Author Organization [place] - [facility], Allergy Address [address] [address] Care Team Providers Care Injection Wax Molder Name Role Phone YARIEL PANDEY Primary Care [...] discussed the risk of anaphylaxis with this. [email or web address] Not available 05/29/2024 12:35:44 Plan of Treatment [...] al allergy skin testing (PROC) 2023 024 [email or web address] Not available 12/27/2023 15:10:40 pulmonary function test procedure (PROC) 2023 024 [email or web address] Not available 12/27/2023 15:10:48 pulse oximetry (PROC) 2023 024 [email or web address] Not available 12/27/2023 15:15:49 Surgeries None recorded. Imaging CT, sinuses, w/o contrast 2023 024 [facility], [address], [place], [address], 01/31/2024 23:08:27 Medication Orders epinephri ne 0.3 mg/0.3 mL injection , auto-inje ctor 2024 025 [facility] #[id number], [address] [place], [address], 05/29/2024 12:32:14 azelastin e 137 mcg (0.1 %) nasal spray 2024 025 [facility] #[id number], [address] [place], [address], 05/29/2024 12:34:07 Patient TargetsNo targets recorded. Patient Instructions Encounter Date Encounter Id Patient Instructions Last Modified By Organization Details Last Modified Time 12/27/2023 [id number] Nursing Documentation for Allergy Testing: Ordering Provider [...] date Yes Other: Written by: Luzmaria Waddell [email or web address] Not available 12/27/2023 15:09:39 Reason for Referral [...] [facility]en [facility] [address], [place], [address], 02/01/2024 08:28:32 05/29/19 25 audio gram No observ ation record ed. BARCODE Not Available 2024 15:14:57 Result Notes None recorded. Problems Name Problem SNOMED Code Status Onset Date Resolution Date Notes Provider Name and Address Organization Details Recorded Time Closed fracture of nasal bones 65924787 Active 2022 Fracture of nasal bones, initial encounter for closed fracture; Note: Date Diagnosed : 07/21/2022 10:06 AM (S02.2XXA ) Not Available [facility] 4 02:14:15 Impacted cerumen in right ear 58780492699 94052 Active 2016 Impacted cerumen, right ear; Note: Date Diagnosed : 04/29/2016 4:34 PM (H61.21) Not Available [facility] 4 02:13:30 Allergic rhinitis caused by pollen 27281646 Active 2019 Allergy NOS due to pollen; Note: Date Diagnosed : 11/16/2019 11:51 AM (J30.1) Not Available [facility] 4 02:13:08 Impacted cerumen of bilateral ears 74617169993 51000 Active 2023 TATIANA DOLAN PA-C [address] [place] [address], [place], [address] , [facility] - [facility] 4 14:04:01 Nasal congestio n 93609866 Active 2023 TATIANA DOLAN PA-C [address] [facility],[place] [address], [place], [address] , [facility] - [facility] 4 14:05:26 Allergic rhinitis 54203131 Active 2023 TATIANA DOLAN PA-C [address] [facility],[place] [address], [place], [address] , [facility] - [facility] 4 14:05:34 Seasonal allergic rhinitis 462909260 Active 2023 TATIANA DOLAN PA-C [address] [facility],[place] [address], [place], [address] , [place] - [facility] 4 14:05:34 Non-aller gic rhinitis 25746057514 1 Active 2023 TATIANA DOLAN PA-C [address] [facility],[place] [address], [place], [address] , [facility] - [facility] 4 14:05:34 Abnormal auditory perceptio n 80666074 Active 2024 JEAN CLAUDE RENTERIA [address] [facility],[place] [address], [place], [address] , [facility] - [facility] 5 11:50:31 Problem Notes None recorded. Procedures Surgical History Date Name Laterality Status Provider Name and Address Organization Details Recorded Time 05/29/19 25 Air & Speech Audio with Tymps - 91032, 35764 & 00909 completed JEAN CLAUDE RENTERIA [address] [facility],[place] [address], [place], [address], [facility] - [facility] 05/29/2024 11:49:44 01/03/20 24 Allergy Testing-Full completed ANA LILIA STEPHEN [address] [facility],[place] [address], [place], [address], [facility] - [facility] 01/03/2024 11:15:19 12/27/19 24 Allergy Testing Modified- Quantitative Testing (MQT) Only completed LUZMARIA WADDELL, [facility] [address] [facility],[place] [address], [place], [address], [facility] - [facility] 12/27/2023 15:09:31 Imaging Results None recorded. Procedure Notes None recorded. Medical Equipment None Reported. Allergies Allergen ID Allergen Name Allergen Category Reaction Reaction Severity Criticality Documentation Date Start Date Code Code System Note Provider Name and Address Organization Details Recorded Time 14673 penicilli n V potassium medicatio n other Not available Not available 08/24/2023 5 RxNorm React ion: unkno wn, unspe cifie d;; Not Available [facility] 4 00:50:23 Medications Name Sig Start Date Stop Date Status Note LastModified by Organization Details LastModified Time bupropion HCl SR 150 mg tablet,12 hr sustained -release TAKE 1 TABLET BY MOUTH EVERY DAY IN THE MORNING 12/26 completed Not Available Not Available Not Available neomycin- polymyxin -hydrocor t 3.5 mg/mL-10, 000 unit/mL-1 % ear solution PLACE 4 DROPS IN AFFECTED EAR(S) 4 TIMES DAILY FOR 7 DAYS active Not Available Not Available No t Available clonidine HCl 0.1 mg tablet TAKE 1 TABLET BY MOUTH EVERYDAY AT BEDTIME 12/26 completed Not Available Not Available Not Available prednison e 10 mg tablet 12/26 completed Medicati on ID: [id number] D uration Value: 10 Brand Name: predniso ne Send Method: E-Prescr ibed Sub s Allowed: subs OK Speci al Instruct ion: TAKE 1 TABLET BY MOUTH EVERY DAY FOR 10 DAYS Med icationG enericNa me: predniso ne Not Available Not Available Not Available loperamid e 2 mg capsule PLEASE SEE ATTACHED FOR DETAILED DIRECTIO NS 12/26 completed Not Available Not Available Not Available azithromy jenise 250 mg tablet TAKE 2 TABLETS BY MOUTH TODAY, THEN TAKE 1 TABLET DAILY FOR 4 DAYS DIRECTED active Not Available Not Available No t Available sucralfat e 100 mg/mL oral suspensio n SWISH 10 ML IN MOUTH AND SWALLOW, USE AFTER FOOD/DRI NK TWICE A DAY active Not Available Not Available No t Available prednison e 20 mg tablet TAKE 2 TABLETS ORALLY EVERY MORNING active Not Available Not Available No [...] e 137 mcg (0.1 %) nasal spray SPRAY 2 SPRAYS BY INTRANAS AL ROUTE TWICE A DAY FOR 30 DAYS active Not Available Not Available No [...] subcut kit 11/15 completed Medicati on ID: [id number] D uration Value: 28 Reason: () Brand [...] completed Not Available Not Available Not Available bupropion HCl 150 mg tablet,12 hr sustained -release( smoking deterrent ) TAKE 1 TABLET BY MOUTH EVERY MORNING active Not Available Not Available No t Available Vitals Date Recorded Body height Body mass index (BMI) Body weight Provider Name and Address Organization Details Last Updated DateTime 05/29/2024 190.5 cm 29.4 kg/m2 891401.21 g Dianna Cantu [facility] 05/29/2024 11:17:54 Date Recorded Body height Body mass index (BMI) Body weight Provider Name and Address Organization Details Last Updated DateTime 12/06/2023 190.5 cm 31.2 kg/m2 482289.09 g Violet Mccann [facility] 12/06/2023 13:48:51 Date Recorded Body height Body mass index (BMI) Body weight Oxygen saturation Oxygen saturation in Arterial blood by Pulse oximetry Heart rate Systolic blood pressure Diastolic blood pressure Provider Name and Address Organization Details Last Updated DateTime 190.5 cm 30 kg/m2 047420. 17 g 99 % 99 % 63 /min 121 mm[Hg] 83 mm[Hg] LUZMARIA WADDELL, A [address], [address] [place], [place] - [facility] 14:29:13 Social History None recorded. Functional Status None recorded. Mental Status None recorded. Family History Nothing Reported. Medical History No medical history recorded. Past Encounters Encounter ID Performer Location Encounter Start Date Encounter Closed Date Diagnosis/Indication Diagnosis SNOMED-CT Code Diagnosis ICD10 Code Diagnosis Note [id number] TATIANA DOLAN PA-C [facility] [address] [address] 12/06/2023 13:31:09 12/06/2023 13:55:51 Nasal congestion 77059403 R09.81 [id number] LUZMARIA WADDELL [facility] All[facility] [address] [place] [phone] 12/27/2023 14:12:56 12/27/2023 15:26:25 Allergic rhinitis 58355459 J30.9 [id number] LUZMARAI WADDELL [facility] [address] [place] [phone] 01/03/2024 10:16:10 01/03/2024 10:17:15 Allergic rhinitis 62318580 J30.9 [id number] TATIANA DOLAN PA-C [facility] [address] [address] 05/29/2024 11:04:38 05/29/2024 12:04:22 Nasal congestion 09102299 R09.81 Allergic rhinitis 608678 04 J30.89 Abnormal a uditory perception 25825776 H93.299 Right Ear:Normal hearing with excellent speech [...] Member ID [employer] Member ID Guarantor Name 09/11/2024 1 [facility] ([facility]) [id number] Tyler Mccann [id number] Tyler Mccann 05/26/2024 2 [facility] ([facility]) Tyler Mccann [id number] Tyler Mccann Notes Date Note Type [...] history of sinus infections. CARO DUNCAN MD [address] [place] [address], [address], [facility] 12/07/2023 [...] for a few years. ARNEL BUNN MD [address] [place] [address],[address], [address], [facility] 05/29/2024 17:08:31
== END 2024-09-11 14:59 | disposition home or self-care (01) ==
LOC: HO.HOP 14:58
PROVIDERS: PCP Nurse Practitioner Family; Visit Provider Clinical Nurse Specialist Psychiatric/Mental Health
DX: F41.1 Generalized anxiety disorder (principal); F90.0 Attention-deficit hyperactivity disorder, predominantly inattentive type
CPT/HCPCS: 99214

== ENCOUNTER → 2024-09-11 14:58 | Outpatient (BNVA) | payer OTHER, SELFPAY | PROVIDERS: PCP Nurse Practitioner Family; Visit Provider Clinical Nurse Specialist Psychiatric/Mental Health | DX: F41.1 Generalized anxiety disorder (principal); F90.0 Attention-deficit hyperactivity disorder, predominantly inattentive type; Z71.89 Other specified counseling | CPT/HCPCS: 99212 ==

== ENCOUNTER 2024-09-29 13:27 | Outpatient (AMB) | payer OTHER, SELFPAY ==
--- NOTE | 2024-09-29 13:29 | A.OFFVIS_ITS ---
Vital Signs 09/29/24 13:30 Height 6 ft 3 in Weight 265 lb 8 oz BMI 33.2 BP 128/86 Blood Pressure Location Rt brachial Position Sitting Pulse 92 Pulse Source Pulse Oximeter Pulse Oximetry (%) 99 Oxygen Delivery Method Room Air Intake Visit Reasons: Dyspnea Allergies penicillin V Allergy (Intermediate, Verified 09/29/24 13:33) rash HPI HPI Dyspnea: Details: Tyler is a pleasant 29-year-old male, never smoker, with underlying asthma, HTN and Crohn's disease. He was referred by GI for pulmonary evaluation due to worsening dyspnea. The patient reports a history of asthma diagnosed in childhood, with a significant episode requiring hospitalization for three days. Symptoms had resolved as he aged but have recently returned, characterized by a sensation of inadequate air intake. Reviewed spirometry from [facility] 2008, which revealed mild obstructive defect suggestive of asthma, with significant improvement upon administration of albuterol, particularly in the small to medium airways. The patient has not experienced chest tightness, wheezing, or coughing, but reports seasonal allergies confirmed by recent family helper testing. Denies pets at home. He is interested in started allergen immunotherapy with ENT. The patient has a family history of eczema and seasonal allergies, with no other asthma cases reported. He has been exposed to secondhand smoke during childhood and currently works in an environment with potential dust exposure for the last 4 years. The patient has not been on any asthma medications nor has he required prednisone for asthma management, although he has used it for Crohn's disease. 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 Mother Hypertension Maternal Grandfather Diabetes Stroke Other Anemia Social History (Updated 09/29/24 @ 13:32 by Violet Lynch CMA) Household Members: Friend(s) Housing: Apartment Are you a primary respiratory care program director to a significant other at home: No Do you presently have visiting nurse or other home services: No Alcohol intake: never Patient Tobacco Use Status: Never used Tobacco e-Cigarette/Vaping Use: Never Used Second Hand Smoke Exposure: No service: No Current occupational status: employed Current occupation: [employer] Cognitive needs: No Hearing needs: No Vision needs: No Review of Systems Const Denies chills, Denies excessive sweating, Denies fever(s), Denies headache(s) and Denies night sweats Eyes Denies dry eyes, Denies irritation and Reports itchy eyes ENT Reports Normal hearing present, Denies headache(s), Denies nasal congestion, Denies nasal discharge, Denies post nasal drip and Denies sore throat Card Denies chest pain, Denies chest pain at rest, Denies chest pain with activity, Denies claudication, Denies leg edema, Reports dyspnea on exertion, Denies orthopnea and Denies paroxysmal nocturnal dyspnea Resp Denies chest congestion, Denies cough, Denies excessive phlegm production, Denies pain on inspiration, Denies pain with cough, Reports dyspnea on exertion, Denies stridor and Denies wheezing Musc Denies myalgias Neuro Reports Normal hearing present and Denies headache(s) Endo Denies excessive sweating Niall/Lymph Denies lymphadenopathy Aller/Immun Reports itchy eyes, Reports seasonal rhinorrhea and Denies wheezing Physical Exam Vital Signs: Last Vital Signs Pulse 92 09/29/24 13:30 BP 128/86 09/29/24 13:30 Pulse Ox 99 09/29/24 13:30 Oxygen Delivery Method Room Air 09/29/24 13:30 BMI result Body Mass Index 33.2 Const General: cooperative, healthy appearing, comfortable, no acute distress, well developed and alert Nutritional Appearance: obese Orientation/consciousness: patient oriented x3 Limitations: no limitations HEENT Head: Yes normal to inspection, Yes normocephalic and Yes atraumatic Ears: hearing grossly normal bilaterally and external ears normal Eyes General: appearance normal, both eyes and all related structures Eyelids: Yes eyelids normal Sclerae: sclerae normal EOM: EOMs intact bilaterally Neck Neck: Yes normal visual inspection and Yes no lymphadenopathy Lymphatic: no lymphadenopathy noted Chest Chest palpation & inspection: normal inspection of the chest Resp Effort & Inspection: normal respiratory effort, able to speak in complete sentences, no audible wheezes, no cough, no stridor, not tachypneic, no tripod positioning and no use of accessory muscles Auscultation: clear to auscultation bilaterally Cardio Jugular venous distension: no JVD Rate: regular rate Rhythm: regular rhythm Skin Other: warm, dry General skin exam: no rashes or lesions noted Neuro General: patient oriented x3 Cranial nerves: Yes Normal hearing present Cognition (Neuro): normal cognition Gait exam (Neuro): Normal gait present Extrem General: Yes normal to inspection, Yes capillary refill normal, Yes no clubbing, cyanosis or edema and Yes no pedal edema Psych Appearance: grossly normal and well kempt Speech and movement: Normal speech and movement present and Clear speech present Affect: normal affect Attitude: cooperative Thought process: Normal thought process present Thought content: Normal thought content present Insight: Good insight present (Psych) Judgement: Good judgement present (Psych) Assessment & Plan Assessment & Plan (1) Asthma: Code(s): J45.909 - Unspecified asthma, uncomplicated Category: Medical (2) Environmental allergies: Code(s): Z91.09 - Other allergy status, other than to drugs and biological substances Category: Medical Plan Discussed with the patient that his symptoms are suggestive of asthma, with a mild obstruction noted on prior spirometry. Will send for updated PFT. Will empirically send Breo. We reviewed the importance of using the prescribed inhaler daily and the potential side effects, including oral thrush, which can be mitigated by rinsing the mouth after use. I recommended switching to a more effective antihistamine for allergy management and discussed the use of nasal sprays for congestion.We also talked about the potential benefits of allergy shots but agreed to delay them until asthma is better controlled. All questions were answered and patient is in agreement of plan, Will follow up in 6-8 weeks or sooner if needed. Orders: Orders PFT pulmonary function test Today J45.909 - Unspecified asthma, uncomplicated Medications: New fluticasone furoate-vilanterol 100-25 mcg/dose (Breo Ellipta) 1 inh inhalation DAILY 60 ea 3RF Coding Level of Care Code New Pt Level 4 (13935) Diagnoses Asthma J45.909 Environmental allergies Z91.09
[2024-09-29 13:30] VITALS: BP 128/86; PULSE 92; O2SAT 99; BMI 33.2
--- OUTSIDE RECORDS SUMMARY | 2024-09-29 13:33 | XMS_ITS | Data Portability ---
Author Organization [place] - [facility], Allergy Address [address] [address] Care Team Providers Care Section Cutter Name Role Phone YARIEL PANDEY Primary Care Provider YARIEL VIZCARRA Primary Care Provider [phone] Assessment Encounter Date Assessment Date Assessment LastModified [...] discussed the risk of anaphylaxis with this. [email or web address] Not available 05/29/2024 12:35:44 Plan of Treatment [...] allergy testing, skin prick (PROC) 2023 024 [email or web address] Not available 12/27/2023 15:10:30 intraderm al allergy skin testing (PROC) 2023 024 [email or web address] Not available 12/27/2023 15:10:40 pulmonary function test procedure (PROC) 2023 024 [email or web address] Not available 12/27/2023 15:10:48 pulse oximetry (PROC) 2023 024 [email or web address] Not available 12/27/2023 15:15:49 Surgeries None recorded. Imaging CT, sinuses, w/o contrast 2023 024 SHAHNAZ [facility] [place], [address], [address], [place], [address], 01/31/2024 23:08:27 Medication Orders epinephri ne 0.3 mg/0.3 mL injection , auto-inje ctor 2024 025 [facility]/Pharmacy #[id number], [address] [place], [address], 05/29/2024 12:32:14 azelastin e 137 mcg (0.1 %) nasal spray 2024 025 [facility]/Pharmacy #[id number], [address] [place], [address], 05/29/2024 12:34:07 Patient TargetsNo targets recorded. Patient Instructions Encounter Date Encounter Id Patient Instructions Last Modified By Organization Details Last Modified Time 12/27/2023 [id number] Nursing Documentation for Allergy Testing: Ordering Provider [...] date Yes Other: Written by: Luzmaria Waddell [email or web address] Not available 12/27/2023 15:09:39 Reason for Referral None Reported. Results Created Date Observation Date Name Description Value Unit Range Abnormal Flag Note LastModifiedBy Organization Detail LastModifiedTime 12/01/19 24 07/15/2022 imagi ng/di agnos tic resul t No observ ation record ed. [email or web address] Not Available 07:07:48 01/31/20 24 01/31/2024 CT, sinus es, w/o contr ast No observ ation record ed. [email or web address] [address] [facility] 100, [place], [address], 02/01/2024 08:28:32 05/29/19 25 audio gram No observ ation record ed. BARCODE Not Available 2024 15:14:57 Result Notes None recorded. Problems Name Problem SNOMED Code Status Onset Date Resolution Date Notes Provider Name and Address Organization Details Recorded Time Closed fracture of nasal bones 43383736 Active 2022 Fracture of nasal bones, initial encounter for closed fracture; Note: Date Diagnosed : 07/21/2022 10:06 AM (S02.2XXA ) Not Available [facility] 4 02:14:15 Impacted cerumen in right ear 21624804966 19533 Active 2016 Impacted cerumen, right ear; Note: Date Diagnosed : 04/29/2016 4:34 PM (H61.21) Not Available [facility] 4 02:13:30 Allergic rhinitis caused by pollen 16316326 Active 2019 Allergy NOS due to pollen; Note: Date Diagnosed : 11/16/2019 11:51 AM (J30.1) Not Available [facility] 4 02:13:08 Impacted cerumen of bilateral ears 79012996764 64473 Active 2023 TATIANA DOLAN PA-C 100 [facility] 100, [facility] [place], [address] , [facility] - [facility] 4 14:04:01 Nasal congestio n 59855600 Active 2023 TATIANA DOLAN PA-C [address] [place],[facility], [place], [address] , [facility] - [facility] [place] 4 14:05:26 Allergic rhinitis 00493463 Active 2023 TATIANA DOLAN [facility]-C 100 [facility] [place],[facility], [place], [address] , [facility] - [facility] [place] 4 14:05:34 Seasonal allergic rhinitis 564404380 Active 2023 TATIANA DOLAN PA-C [address] [facility] [place],[facility], [place], [address] , [facility] - [facility] [place] 4 14:05:34 Non-aller gic rhinitis 44988296670 1 Active 2023 TATIANA DOALN PA-C 100 [facility],[place] [address], [place], [address] , [facility] - [facility] [place] 4 14:05:34 Abnormal auditory perceptio n 78570512 Active 2024 JEAN CLAUDE RENTERIA 100 [facility],[place] [address], [place], [address] , [facility] - [facility] [place] 5 11:50:31 Problem Notes None recorded. Procedures Surgical History Date Name Laterality Status Provider Name and Address Organization Details Recorded Time 05/29/19 25 Air & Speech Audio with Tymps - 57263, 49263 & 93659 completed JEAN CLAUDE RENTERIA [address],[facility], [place], [address], [facility] - [facility] [place] 05/29/2024 11:49:44 01/03/20 24 Allergy Testing-Full completed ANA LILIA STEPHEN [address],[facility], [place], [address], [facility] - [facility] [place] 01/03/2024 11:15:19 12/27/19 24 Allergy Testing Modified- Quantitative Testing (MQT) Only completed ANA LILIA STEPHEN 100 [facility] [address], [address], [facility] - [facility] 12/27/2023 15:09:31 Imaging Results None recorded. Procedure Notes None recorded. Medical Equipment None Reported. Allergies Allergen ID Allergen Name Allergen Category Reaction Reaction Severity Criticality Documentation Date Start Date Code Code System Note Provider Name and Address Organization Details Recorded Time 56995 penicilli n V potassium medicatio n other Not available Not available 08/24/202382494 5 RxNorm React ion: unkno wn, unspe cifie d;; Not Available [facility] 4 00:50:23 Medications Name Sig Start Date Stop Date Status Note LastModified by Organization Details LastModified Time buspirone 5 mg tablet TAKE 1 TABLET BY MOUTH TWICE A DAY active Not Available Not Available No t Available bupropion HCl SR 150 mg tablet,12 hr [...] mg tablet 12/26 completed Medicati on ID: [id number] D uration Value: 10 Brand Name: predniso [...] HCl 25 mg tablet TAKE 1 TABLET DAILY IF NEEDED FOR ANXIETY AND TAKE 1-2 BEFORE BEDTIME NEEDED active Not Available Not Available No t [...] Not Available Not Available No t Available Blilyira Pen Crohn's-U lc Colitis-H id Sup Starter 40 mg/0.8 mL subcut kit 11/15 completed Medicati on ID: [id number] D uration Value: 28 Reason: () Brand [...] Updated DateTime 05/29/2024 190.5 cm 29.4 kg/m2 488593.21 g Dianna Cantu [facility] 05/29/2024 11:17:54 Date Recorded Body height Body mass index (BMI) Body weight Provider Name and Address Organization Details Last Updated DateTime 12/06/2023 190.5 cm 31.2 kg/m2 093047.09 g Violet Mccann [facility] 12/06/2023 13:48:51 Date Recorded Body height Body mass index (BMI) Body weight Oxygen saturation Oxygen saturation in Arterial blood by Pulse oximetry Heart rate Systolic blood pressure Diastolic blood pressure Provider Name and Address Organization Details Last Updated DateTime 190.5 cm 30 kg/m2 042227. 17 g 99 % 99 % 63 /min 121 mm[Hg] 83 mm[Hg] LUZMARIA WADDELL, A [address], [address], [place] - [facility] 14:29:13 Social History None recorded. Functional Status None recorded. Mental Status None recorded. Family History Nothing Reported. Medical History No medical history recorded. Past Encounters Encounter ID Performer Location Encounter Start Date Encounter Closed Date Diagnosis/Indication Diagnosis SNOMED-CT Code Diagnosis ICD10 Code Diagnosis Note [id number] TATIANA DOLAN PA-C [facility] [address] [address] 12/06/2023 13:31:09 12/06/2023 13:55:51 Nasal congestion 30000121 R09.81 [id number] LUZMARIA WADDELL [facility] Allergy [address] [place] [id number] 12/27/2023 14:12:56 12/27/2023 15:26:25 Allergic rhinitis 67756008 J30.9 [id number] LUZMARIA WADDELL [facility] Allergy [address] [place] [phone] 01/03/2024 10:16:10 01/03/2024 10:17:15 Allergic rhinitis 35211950 J30.9 [id number] TATIANA DOLAN PA-C [facility] of [address] [address] 05/29/2024 11:04:38 05/29/2024 12:04:22 Nasal congestion 12996321 R09.81 Allergic rhinitis 391306 04 J30.89 Abnormal a uditory perception 46909214 H93.299 Right Ear:Normal hearing with excellent speech [...] Enamorado Member ID Guarantor Name 09/11/2024 1 [facility] (O) [id number] Tyler Mccann [id number] Tyler Mccann 05/26/2024 2 [facility] (O) Tyler Mccann [id number] Tyler Mccann Notes Date Note Type [...] history of sinus infections. CARO DUNCAN MD [address] [place] [address], [address], [facility] - [facility] 12/07/2023 16:32:07 05/29/2024 text/html 28-year-old male presents for review of allergy testing and CT sinus. He has been using Flonase daily without improvement. CT sinus was also ordered. He continues to have nasal congestion, sneezing, rhinorrhea, decreased sense of smell, and facial pressure. No history of recurrent sinusitis. Also notes decreased hearing bilaterally for a few years. ARNEL BUNN MD [address] [place] [address],[address], [address], [facility] - [facility] 05/29/2024 17:08:31
== END 2024-09-29 14:51 | disposition home or self-care (01) ==
LOC: HO.HPSW 13:28
PROVIDERS: PCP Nurse Practitioner Family; Referring Provider Internal Medicine Gastroenterology; Visit Provider Nurse Practitioner Family
DX: J45.909 Unspecified asthma, uncomplicated (principal); Z91.09 Other allergy status, other than to drugs and biological substances
CPT/HCPCS: 99204

== ENCOUNTER → 2024-09-29 13:27 | Outpatient (BNVA) | payer OTHER, SELFPAY | PROVIDERS: PCP Nurse Practitioner Family; Referring Provider Internal Medicine Gastroenterology; Visit Provider Nurse Practitioner Family | DX: J45.909 Unspecified asthma, uncomplicated (principal); Z91.09 Other allergy status, other than to drugs and biological substances | CPT/HCPCS: 99202 ==

== ENCOUNTER 2024-10-02 11:27 | Outpatient (AMB) | payer OTHER, SELFPAY ==
[2024-10-02 11:50] VITALS: BP 128/70; PULSE 91; RESP 17; TEMP 37; O2SAT 98; BMI 32.6
--- NOTE | 2024-10-02 11:50 | MHC.OFFWIV ---
Intake Vital Signs 10/02/24 11:50 Height 6 ft 3 in Weight 261 lb BMI 32.6 BP 128/70 Blood Pressure Location Rt brachial Position Sitting Respiration 17 Pulse 91 Pulse Source Pulse Oximeter Temp 98.6 F Temp Source Oral Pulse Oximetry (%) 98 Oxygen Delivery Method Room Air Intake Visit Reasons: EP SOB, Headache Intake Note: Pt is here today c/o SOB and H/A since this morning Patient Tobacco Use Status: Never used Tobacco Allergies penicillin V Allergy (Intermediate, Verified 10/02/24 11:52) rash HPI HPI Comments History of Present Illness Details 29 y/o Male patient who presents to the walk in clinic with c/o SOB and headaches since this morning. Pt has h/o Asthma and managed by Email Campaign Manager. He is currently using Breo. Pt also c/o Headaches due to inability of sleeping at night - pt has insomnia and takes Melatonin. [facility] Medical History (Updated 10/02/24 @ 12:25 by Abbi Ramon NP) Generalized headaches SOB (shortness of breath) Anemia Crohn's disease ADHD (attention deficit hyperactivity disorder) 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 Mother Hypertension Maternal Grandfather Diabetes Stroke Other Anemia Social History (Updated 09/29/24 @ 13:32 by Violet Lynch CMA) Household Members: Friend(s) Housing: Apartment Are you a primary aged or disabled carer to a significant other at home: No Do you presently have visiting nurse or other home services: No Alcohol intake: never Patient Tobacco Use Status: Never used Tobacco e-Cigarette/Vaping Use: Never Used Second Hand Smoke Exposure: No service: No Current occupational status: employed Current occupation: [employer] Cognitive needs: No Hearing needs: No Vision needs: No Review of Systems Const All systems reviewed & are unremarkable except as noted in HPI and below Physical Exam Vital Signs: Last Vital Signs Temp 98.6 F 10/02/24 11:50 Pulse 91 10/02/24 11:50 Resp 17 10/02/24 11:50 BP 128/70 10/02/24 11:50 Pulse Ox 98 10/02/24 11:50 Oxygen Delivery Method Room Air 10/02/24 11:50 BMI result Body Mass Index 32.6 Const General: no acute distress Nutritional Appearance: overweight Orientation/consciousness: patient oriented x3 Resp Effort & Inspection: normal respiratory effort and able to speak in complete sentences Auscultation: clear to auscultation bilaterally, no crackles, no rales, no rhonchi and no wheezes Cardio Heart sounds: S1 normal heart sound present and S2 normal heart sound present Neuro General: patient oriented x3 Assessment & Plan Assessment & Plan (1) SOB (shortness of breath): Code(s): R06.02 - Shortness of breath Plan: B/L Lung sounds CTA No indication for Chest Xray at this time Pt able to speak in complete sentences. Ordered Albuterol inhaler Continue wit Breo as prescribed by Pulmonology. (2) Generalized headaches: Code(s): R51.9 - Headache, unspecified Plan: Take Acetaminophen for pain relief Hydrate and rest in dark quiet room. Medications: New albuterol sulfate 90 mcg/actuation 2 puffs inhalation Q4-6H PRN 6.7 grams 0RF shortness of breath or wheezing R06.02 - Shortness of breath Changed From acetaminophen (Tylenol Extra Strength) 500 mg PO Q6H PRN 30 tabs 2RF fever or pain R51.9 - Headache, unspecified To acetaminophen (Tylenol Extra Strength) 1,000 mg (2 x 500 mg) PO Q6H PRN 30 tabs 0RF fever or pain R51.9 - Headache, unspecified Coding Level of Care Code Est Pt Level 4 (65200) Diagnoses SOB (shortness of breath) R06.02 Generalized headaches R51.9 Time Spent (min) 20
--- OUTSIDE RECORDS SUMMARY | 2024-10-02 13:07 | XMS_ITS | Data Portability ---
Author Organization [place] - [facility], Allergy Address [address] [address] Care Team Providers Care Silk Brusher Name Role Phone YARIEL PANDEY Primary Care Provider [phone] YARIEL VIZCARRA Primary Care Provider [phone] Assessment Encounter Date Assessment Date Assessment LastModified [...] discussed the risk of anaphylaxis with this. [email or web address] Not available 05/29/2024 12:35:44 Plan of Treatment [...] al allergy skin testing (PROC) 2023 024 [email or web address] Not available 12/27/2023 15:10:40 pulmonary function test procedure (PROC) 2023 024 Not available 12/27/2023 15:10:48 pulse oximetry (PROC) 2023 024 [email or web address] Not available 12/27/2023 15:15:49 Surgeries None recorded. Imaging CT, sinuses, w/o contrast 2023 024 SHAHNAZ [facility] [place], [address], [address], [place], [address], 01/31/2024 23:08:27 Medication Orders epinephri ne 0.3 mg/0.3 mL injection , auto-inje ctor 2024 025 [facility]/Pharmacy #[id number], [address] [place], [address], 05/29/2024 12:32:14 azelastin e 137 mcg (0.1 %) nasal spray 2024 025 [facility]/Pharmacy #[id number], [address] [place], [address], 05/29/2024 12:34:07 Patient TargetsNo targets recorded. Patient Instructions Encounter Date Encounter Id Patient Instructions Last Modified By Organization Details Last Modified Time 12/27/2023 [id number] Nursing Documentation for Allergy Testing: Ordering Provider [...] date Yes Other: Written by: Luzmaria Waddell [email or web address] Not available 12/27/2023 15:09:39 Reason for Referral None Reported. Results Created Date Observation Date Name Description Value Unit Range Abnormal Flag Note LastModifiedBy Organization Detail LastModifiedTime 12/01/19 24 07/15/2022 imagi ng/di agnos tic resul t No observ ation record ed. [email or web address] Not Available 07:07:48 01/31/20 24 01/31/2024 CT, sinus es, w/o contr ast No observ ation record ed. [email or web address] [facility] [address], [place], [address], 02/01/2024 08:28:32 05/29/19 25 audio gram No observ ation record ed. BARCODE Not Available 2024 15:14:57 Result Notes None recorded. Problems Name Problem SNOMED Code Status Onset Date Resolution Date Notes Provider Name and Address Organization Details Recorded Time Closed fracture of nasal bones 07962883 Active 2022 Fracture of nasal bones, initial encounter for closed fracture; Note: Date Diagnosed : 07/21/2022 10:06 AM (S02.2XXA ) Not Available [facility] 4 02:14:15 Impacted cerumen in right ear 64500456051 39767 Active 2016 Impacted cerumen, right ear; Note: Date Diagnosed : 04/29/2016 4:34 PM (H61.21) Not Available [facility] 4 02:13:30 Allergic rhinitis caused by pollen 83710080 Active 2019 Allergy NOS due to pollen; Note: Date Diagnosed : 11/16/2019 11:51 AM (J30.1) Not Available [facility] 4 02:13:08 Impacted cerumen of bilateral ears 67400446977 04488 Active 2023 TATIANA DOLAN PA-C 100 [facility],[address], [place], [address] , [facility] - [facility] 4 14:04:01 Nasal congestio n 11742472 Active 2023 TATIANA DOLAN PA-C [address],[place] [address], [facility] [place], [address] , [facility] - [facility] [place] 4 14:05:26 Allergic rhinitis 19274285 Active 2023 TATIANA DOLAN PA-C [address],[place] [address], [place], [address] , [facility] - [facility] [place] 4 14:05:34 Seasonal allergic rhinitis 093597328 Active 2023 TATIANA DOLAN PA-C [address],[place] [address], [place], [address] , [facility] - [facility] [place] 4 14:05:34 Non-aller gic rhinitis 18398967964 1 Active 2023 TATIANA DOLAN PA-C 100 [facility] [place] [address], [facility] [place], [address] , [facility] - [facility] [place] 4 14:05:34 Abnormal auditory perceptio n 04798541 Active 2024 JEAN CLAUDE RENTERIA [address],[place] [address], [place], [address] , [facility] - [facility] [place] 5 11:50:31 Problem Notes None recorded. Procedures Surgical History Date Name Laterality Status Provider Name and Address Organization Details Recorded Time 05/29/19 25 Air & Speech Audio with Tymps - 94095, 98812 & 04362 completed JEAN CLAUDE RENTERIA [address],[facility], [place], [address], [facility] - [facility] [place] 05/29/2024 11:49:44 01/03/20 24 Allergy Testing-Full completed ANA LILIA STEPHEN [address], [place], [address], [facility] - [facility] [place] 01/03/2024 11:15:19 12/27/19 24 Allergy Testing Modified- Quantitative Testing (MQT) Only completed LUZMARIA WADDELL, A 100 [facility],[place] [address], [place], [address], [facility] - [facility] 12/27/2023 15:09:31 Imaging Results None recorded. Procedure Notes None recorded. Medical Equipment None Reported. Allergies Allergen ID Allergen Name Allergen Category Reaction Reaction Severity Criticality Documentation Date Start Date Code Code System Note Provider Name and Address Organization Details Recorded Time 35474 penicilli n V potassium medicatio n other Not available Not available 08/24/2023 5 RxNorm React ion: unkno wn, unspe cifie d;; Not Available [facility] 4 00:50:23 Medications Name Sig Start Date [...] mg tablet 12/26 completed Medicati on ID: [id number] D uration Value: 10 Brand Name: predniso [...] subcut kit 11/15 completed Medicati on ID: [id number] D uration Value: 28 Reason: () Brand [...] Updated DateTime 05/29/2024 190.5 cm 29.4 kg/m2 403592.21 g Dianna Cantu [facility] 05/29/2024 11:17:54 Date Recorded Body height Body mass index (BMI) Body weight Provider Name and Address Organization Details Last Updated DateTime 12/06/2023 190.5 cm 31.2 kg/m2 159183.09 g Violet Mccann [place] - [facility] 12/06/2023 13:48:51 Date Recorded Body height Body mass index (BMI) Body weight Oxygen saturation Oxygen saturation in Arterial blood by Pulse oximetry Heart rate Systolic blood pressure Diastolic blood pressure Provider Name and Address Organization Details Last Updated DateTime 190.5 cm 30 kg/m2 084438. 17 g 99 % 99 % 63 /min 121 mm[Hg] 83 mm[Hg] LUZMARIA WADDELL, A [address], [address], [place] - [facility] 14:29:13 Social History None recorded. Functional Status None recorded. Mental Status None recorded. Family History Nothing Reported. Medical History No medical history recorded. Past Encounters Encounter ID Performer Location Encounter Start Date Encounter Closed Date Diagnosis/Indication Diagnosis SNOMED-CT Code Diagnosis ICD10 Code Diagnosis Note [id number] TATIANA DOLAN PA-C [facility] [address] [address] 12/06/2023 13:31:09 12/06/2023 13:55:51 Nasal congestion 69894828 R09.81 [id number] LUZMARIA WADDELL [facility] All[facility] [address] [place] [phone] 12/27/2023 14:12:56 12/27/2023 15:26:25 Allergic rhinitis 60714643 J30.9 [id number] LUZMARIA WADDELL [facility] [address] [place] [phone] 01/03/2024 10:16:10 01/03/2024 10:17:15 Allergic rhinitis 36962409 J30.9 [id number] TATIANA DOLAN PA-C [facility] [address] [address] 05/29/2024 11:04:38 05/29/2024 12:04:22 Nasal congestion 95094199 R09.81 Allergic rhinitis 735817 04 J30.89 Abnormal a uditory perception 04241001 H93.299 Right Ear:Normal hearing with excellent speech [...] Enamorado Member ID Guarantor Name 09/11/[address] [facility] (O) [id number] Tyler Mccann [id number] Tyler Mccann 05/26/2024 2 [facility] (O) Tyler cMcann [id number] Tyler Mccann Notes Date Note Type [...] CARO DUNCAN MD 100 [facility],[address], [address], [facility] 12/07/2023 [...] ARNEL BUNN MD 100 [facility],[address], [address], [facility] - [facility] 05/29/2024 17:08:31
== END 2024-10-02 12:23 | disposition home or self-care (01) ==
PROVIDERS: PCP Nurse Practitioner Family; Visit Provider Nurse Practitioner Family
DX: R06.02 Shortness of breath (principal); R51.9 Headache, unspecified

== ENCOUNTER → 2024-10-02 11:27 | Outpatient (BNVA) | payer OTHER, SELFPAY | PROVIDERS: PCP Nurse Practitioner Family; Visit Provider Nurse Practitioner Family | DX: R06.02 Shortness of breath (principal); R51.9 Headache, unspecified | CPT/HCPCS: 99212 ==

== ENCOUNTER 2024-10-30 12:01 | Outpatient (REF) | payer OTHER, SELFPAY ==
--- OUTSIDE RECORDS SUMMARY | 2024-10-30 12:57 | XMS_ITS | Data Portability ---
Author Organization [place] - [facility], Allergy Address [address] [address] Care Team Providers Care Funeral Location Manager Name Role Phone YARIEL PANDEY Primary Care Provider YARIEL VIZCARRA Primary Care Provider [phone] Assessment Encounter Date Assessment Date Assessment LastModified [...] discussed the risk of anaphylaxis with this. [email or web address] Not available 05/29/2024 12:35:44 Plan of Treatment [...] allergy testing, skin prick (PROC) 2023 024 [email or web address] Not available 12/27/2023 15:10:30 intraderm al allergy skin testing (PROC) 2023 024 Not available 12/27/2023 15:10:40 pulmonary function test procedure (PROC) 2023 024 [email or web address] Not available 12/27/2023 15:10:48 pulse oximetry (PROC) 2023 024 [email or web address] Not available 12/27/2023 15:15:49 Surgeries None recorded. Imaging CT, sinuses, w/o contrast 2023 024 SHAHNAZ [facility] [place], [address], [address], [place], [address], 01/31/2024 23:08:27 Medication Orders epinephri ne 0.3 mg/0.3 mL injection , auto-inje ctor 2024 025 [facility]/Pharmacy #[id number], [address] [place], [address], 05/29/2024 12:32:14 azelastin e 137 mcg (0.1 %) nasal spray 2024 025 [facility]/Pharmacy #[id number], [address] [place], [address], 05/29/2024 12:34:07 Patient TargetsNo targets recorded. Patient Instructions Encounter Date Encounter Id Patient Instructions Last Modified By Organization Details Last Modified Time 12/27/2023 [id number] Nursing Documentation for Allergy Testing: Ordering Provider [...] date Yes Other: Written by: Luzmaria Waddell Not available 12/27/2023 15:09:39 Reason for Referral [...] [email or web address] [facility] [address], [place], [address], 02/01/2024 08:28:32 05/29/19 25 audio gram No observ ation record ed. BARCODE Not Available 2024 15:14:57 Result Notes None recorded. Problems Name Problem SNOMED Code Status Onset Date Resolution Date Notes Provider Name and Address Organization Details Recorded Time Impacted cerumen in right ear 57932393422 38148 Active 2016 Impacted cerumen, right ear; Note: Date Diagnosed : 04/29/2016 4:34 PM (H61.21) Not Available [facility] 4 02:13:30 Allergic rhinitis caused by pollen 74008099 Active 2019 Allergy NOS due to pollen; Note: Date Diagnosed : 11/16/2019 11:51 AM (J30.1) Not Available [facility] 4 02:13:08 Closed fracture of nasal bones 67219880 Active 2022 Fracture of nasal bones, initial encounter for closed fracture; Note: Date Diagnosed : 07/21/2022 10:06 AM (S02.2XXA ) Not Available [facility] 4 02:14:15 Impacted cerumen of bilateral ears 23236726182 32374 Active 2023 TATIANA DOLAN PA-C 100 [facility] 100, [place], [address] , [facility] - [facility] 4 14:04:01 Nasal congestio n 49963788 Active 2023 TATIANA DOLAN PA-C [address],[place] [address], [facility] [place], [address] , [facility] - [facility] [place] 4 14:05:26 Allergic rhinitis 11192269 Active 2023 TATIANA DOLAN PA-C [address],[place] [address], [facility] [place], [address] , [facility] - [facility] [place] 4 14:05:34 Seasonal allergic rhinitis 688830846 Active 2023 TATIANA DOLAN PA-C [address],[place] [address], [facility] [place], [address] , [facility] - [facility] [place] 4 14:05:34 Non-aller gic rhinitis 82184260233 1 Active 2023 TATIANA DOLAN PA-C [address] [facility] [place] [address], [facility] [place], [address] , [facility] - [facility] [place] 4 14:05:34 Abnormal auditory perceptio n 96808191 Active 2024 JEAN CLAUDE RENTERIA [address],[place] [address], [facility] [place], [address] , [facility] - [facility] [place] 5 11:50:31 Problem Notes None recorded. Procedures Surgical History Date Name Laterality Status Provider Name and Address Organization Details Recorded Time 05/29/19 25 Air & Speech Audio with Tymps - 02037, 77480 & 38055 completed JEAN CLAUDE RENTERIA [address] [facility], [place], [address], [facility] - [facility] [place] 05/29/2024 11:49:44 01/03/20 24 Allergy Testing-Full completed ANA LILIA STEPHEN [address], [place], [address], [facility] - [facility] [place] 01/03/2024 11:15:19 12/27/19 24 Allergy Testing Modified- Quantitative Testing (MQT) Only completed LUZMARIA WADDELL, A 100 [facility],[place] [address], [place], [address], [facility] - [facility] 12/27/2023 15:09:31 Imaging Results None recorded. Procedure Notes None recorded. Medical Equipment None Reported. Allergies Allergen ID Allergen Name Allergen Category Reaction Reaction Severity Criticality Documentation Date Start Date Code Code System Note Provider Name and Address Organization Details Recorded Time 86445 penicilli n V potassium medicatio n other Not available Not available 08/24/2023 5 RxNorm React ion: unkno wn, unspe cifie d;; Not Available [facility] 4 00:50:23 Medications Name Sig Start [...] mg tablet 12/26 completed Medicati on ID: [id number] D uration Value: 10 Brand Name: predniso [...] subcut kit 11/15 completed Medicati on ID: [id number] D uration Value: 28 Reason: () Brand [...] Updated DateTime 05/29/2024 190.5 cm 29.4 kg/m2 455501.21 g Dianna Cantu [place] - [facility] 05/29/2024 11:17:54 Date Recorded Body height Body mass index (BMI) Body weight Provider Name and Address Organization Details Last Updated DateTime 12/06/2023 190.5 cm 31.2 kg/m2 257952.09 g Violet Mccann [place] - [facility] 12/06/2023 13:48:51 Date Recorded Body height Body mass index (BMI) Body weight Oxygen saturation Oxygen saturation in Arterial blood by Pulse oximetry Heart rate Systolic And Diastolic Provider Name and Address Organization Details Last Updated DateTime 190.5 cm 30 kg/m2 334090. 17 g 99 % 99 % 63 /min 121/83 mm[Hg] LUZMARIA WADDELL, A [address], [address], [place] - [facility] 14:29:13 Social History None recorded. Functional Status None recorded. Mental Status None recorded. Family History Nothing Reported. Medical History No medical history recorded. Past Encounters Encounter ID Performer Location Encounter Start Date Encounter Closed Date Diagnosis/Indication Diagnosis SNOMED-CT Code Diagnosis ICD10 Code Diagnosis Note [id number] TATIANA DOLAN PA-C [facility] [address] [address] 12/06/2023 13:31:09 12/06/2023 13:55:51 Nasal congestion 20006675 R09.81 [id number] LUZMARIA WADDELL [facility] Allergy [address] [place] [id number] 12/27/2023 14:12:56 12/27/2023 15:26:25 Allergic rhinitis 26009321 J30.9 [id number] LUZMARIA WADDELL [facility] Allergy [address] [place] [address] 01/03/2024 10:16:10 01/03/2024 10:17:15 Allergic rhinitis 86509527 J30.9 [id number] TATIANA DOLAN PA-C [facility] [address] [address] 05/29/2024 11:04:38 05/29/2024 12:04:22 Nasal congestion 21158059 R09.81 Allergic rhinitis 582579 04 J30.89 Abnormal a uditory perception 67294839 H93.299 Right Ear:Normal hearing with excellent speech [...] Enamorado Member ID Guarantor Name 09/11/2024 1 [facility] (O) [id number] Tyler Mccann [id number] 00 Tyler Mccann 05/26/2024 2 [facility] (O) Tyler Mccann [id number] 00 Tyler Mccann Notes Date Note Type [...] history of sinus infections. CARO DUNCAN MD [address] [place] [address], [address], [facility] - [facility] 12/07/2023 16:32:07 05/29/2024 text/html 28-year-old male presents for review of allergy testing and CT sinus. He has been using Flonase daily without improvement. CT sinus was also ordered. He continues to have nasal congestion, sneezing, rhinorrhea, decreased sense of smell, and facial pressure. No history of recurrent sinusitis. Also notes decreased hearing bilaterally for a few years. ARNEL BUNN MD [address] [place] [address],[address], [address], [facility] - [facility] 05/29/2024 17:08:31
== END 2024-10-30 12:02 | disposition home or self-care (01) ==
LOC: HO.LAB 12:01
PROVIDERS: PCP Nurse Practitioner Family; Visit Provider Internal Medicine Gastroenterology
DX: Z13.89 Encounter for screening for other disorder (principal)

== ENCOUNTER 2024-11-06 09:08 | Outpatient (REF) | payer OTHER, SELFPAY ==
--- OUTSIDE RECORDS SUMMARY | 2024-11-07 09:34 | XMS_ITS | Data Portability ---
Author Organization [place] - [facility], Allergy Address [address] [address] Care Team Providers Care Life Advisor Name Role Phone YARIEL PANDEY Primary Care Provider YARIEL VIZCARRA Primary Care Provider [phone] Assessment Encounter Date Assessment Date Assessment LastModified [...] discussed the risk of anaphylaxis with this. [email or web address] Not available 05/29/2024 12:35:44 Plan of Treatment [...] al allergy skin testing (PROC) 2023 024 [email or web address] Not available 12/27/2023 15:10:40 pulmonary function test procedure (PROC) 2023 024 [email or web address] Not available 12/27/2023 15:10:48 pulse oximetry (PROC) 2023 024 [email or web address] Not available 12/27/2023 15:15:49 Surgeries None recorded. Imaging CT, sinuses, w/o contrast 2023 024 SHANHAZ [facility] [place], [address], [address], [place], [address], 01/31/2024 23:08:27 Medication Orders epinephri ne 0.3 mg/0.3 mL injection , auto-inje ctor [address] [facility]/Pharmacy #[id number], [address] [place], [address], 05/29/2024 12:32:14 azelastin e 137 mcg (0.1 %) nasal spray [address] [facility]/Pharmacy #[id number], [address] [place], [address], 05/29/2024 12:34:07 Patient TargetsNo targets recorded. Patient Instructions Encounter Date Encounter Id Patient Instructions Last Modified By Organization Details Last Modified Time 12/27/2023 [id number] Nursing Documentation for Allergy Testing: Ordering Provider Dr. Galarza Weight:lbs: kg: PFT Yes With Bronchodilator no approval needed to proceed with allergy testing? Yes Dr. Bland ok'd testing YesHistory of Asthma:No Asthma Meds: [...] date Yes Other: Written by: Luzmaria Waddell [email or web address] Not available 12/27/2023 15:09:39 Reason for Referral [...] [email or web address] [facility] [address], [place], [address], 02/01/2024 08:28:32 05/29/19 25 audio gram No observ ation record ed. BARCODE Not Available 2024 15:14:57 Result Notes None recorded. Problems Name Problem SNOMED Code Status Onset Date Resolution Date Notes Provider Name and Address Organization Details Recorded Time Impacted cerumen in right ear 10397807008 39758 Active 2016 Impacted cerumen, right ear; Note: Date Diagnosed : 04/29/2016 4:34 PM (H61.21) Not Available [facility] 4 02:13:30 Allergic rhinitis caused by pollen 06460833 Active 2019 Allergy NOS due to pollen; Note: Date Diagnosed : 11/16/2019 11:51 AM (J30.1) Not Available [facility] 4 02:13:08 Closed fracture of nasal bones 89567615 Active 2022 Fracture of nasal bones, initial encounter for closed fracture; Note: Date Diagnosed : 07/21/2022 10:06 AM (S02.2XXA ) Not Available [facility] 4 02:14:15 Impacted cerumen of bilateral ears 78871868228 16880 Active 2023 TATIANA DOLNA PA-C 100 [facility] 100, [facility] [place], [address] , [facility] - [facility] 4 14:04:01 Nasal congestio n 57731854 Active 2023 TATIANA DOLAN PA-C [address],[place] [address], [facility] [place], [address] , [facility] - [facility] [place] 4 14:05:26 Allergic rhinitis 21964043 Active 2023 TATIANA DOLAN PA-C [address],[place] [address], [facility] [place], [address] , [facility] - [facility] [place] 4 14:05:34 Seasonal allergic rhinitis 715178281 Active 2023 TATIANA DOLAN PA-C [address],[place] [address], [facility] [place], [address] , [facility] - [facility] [place] 4 14:05:34 Non-aller gic rhinitis 45454308697 1 Active 2023 TATIANA DOLAN PA-C 100 [facility] [place] [address], [facility] [place], [address] , [facility] - [facility] [place] 4 14:05:34 Abnormal auditory perceptio n 26240495 Active 2024 JEAN CLAUDE RENTERIA [address],[place] [address], [facility] [place], [address] , [facility] - [facility] [place] 5 11:50:31 Problem Notes None recorded. Procedures Surgical History Date Name Laterality Status Provider Name and Address Organization Details Recorded Time 05/29/19 25 Air & Speech Audio with Tymps - 34616, 82331 & 11021 completed JEAN CLAUDE RENTERIA [address] [facility], [place], [address], [facility] - [facility] [place] 05/29/2024 11:49:44 01/03/20 24 Allergy Testing-Full completed ANA LILIA STEPHEN [address], [place], [address], [facility] - [facility] [place] 01/03/2024 11:15:19 12/27/19 24 Allergy Testing Modified- Quantitative Testing (MQT) Only completed LUZMARIA WADDELL, A 100 [facility],[place] [address], [place], [address], [facility] - [facility] 12/27/2023 15:09:31 Imaging Results None recorded. Procedure Notes None recorded. Medical Equipment None Reported. Allergies Allergen ID Allergen Name Allergen Category Reaction Reaction Severity Criticality Documentation Date Start Date Code Code System Note Provider Name and Address Organization Details Recorded Time 08407 penicilli n V potassium medicatio n other Not available Not available 08/24/2023 5 RxNorm React ion: unkno wn, unspe cifie d;; Not Available [facility] 4 00:50:23 Medications Name Sig Start Date [...] mg tablet 12/26 completed Medicati on ID: [id number] D uration Value: 10 Brand Name: predniso [...] subcut kit 11/15 completed Medicati on ID: [id number] D uration Value: 28 Reason: () Brand [...] Updated DateTime 05/29/2024 190.5 cm 29.4 kg/m2 319772.21 g Dianna Cantu [place] - [facility] 05/29/2024 11:17:54 Date Recorded Body height Body mass index (BMI) Body weight Provider Name and Address Organization Details Last Updated DateTime 12/06/2023 190.5 cm 31.2 kg/m2 241887.09 g Violet Mccann [place] - [facility] 12/06/2023 13:48:51 Date Recorded Body height Body mass index (BMI) Body weight Oxygen saturation Oxygen saturation in Arterial blood by Pulse oximetry Heart rate Systolic And Diastolic Provider Name and Address Organization Details Last Updated DateTime 190.5 cm 30 kg/m2 707039. 17 g 99 % 99 % 63 /min 121/83 mm[Hg] LUZMARIA WADDELL, A [address], [address], [place] - [facility] 14:29:13 Social History None recorded. Functional Status None recorded. Mental Status None recorded. Family History Nothing Reported. Medical History No medical history recorded. Past Encounters Encounter ID Performer Location Encounter Start Date Encounter Closed Date Diagnosis/Indication Diagnosis SNOMED-CT Code Diagnosis ICD10 Code Diagnosis Note [id number] TATIANA DOLAN PA-C [facility] [address] [address] 12/06/2023 13:31:09 12/06/2023 13:55:51 Nasal congestion 94307925 R09.81 [id number] LUZMARIA WADDELL [facility] All[facility] [address] [place] [address] 12/27/2023 14:12:56 12/27/2023 15:26:25 Allergic rhinitis 28824417 J30.9 [id number] LUZMARIA WAD[facility]LL [facility] [address] [place] [phone] 01/03/2024 10:16:10 01/03/2024 10:17:15 Allergic rhinitis 75336296 J30.9 [id number] TATIANA DOLAN PA-C [facility] [address] [address] 05/29/2024 11:04:38 05/29/2024 12:04:22 Nasal congestion 74952937 R09.81 Allergic rhinitis 417070 04 J30.89 Abnormal a uditory perception 59116422 H93.299 Right Ear:Normal hearing with excellent speech [...] Enam[place] Member ID Guarantor Name 09/11/2024 1 [facility] (O) [id number] Tyler Mccann [id number] Tyler Mccann 05/26/2024 2 [facility] ([facility] Tyler Mccann [id number] Tyler Mccann
== END 2024-11-06 09:09 | disposition home or self-care (01) ==
LOC: HO.HOSX 09:08
PROVIDERS: Visit Provider Physician Assistant
DX: Z13.89 Encounter for screening for other disorder (principal)

== ENCOUNTER 2024-11-08 08:22 | Outpatient (REF) | payer OTHER, SELFPAY ==
[2024-11-15 18:59] LABS: Lactoferrin, Fecal, Quant. <6.25 mcg/mL (<7.25)
== END 2024-11-08 08:23 | disposition home or self-care (01) ==
LOC: HO.LNP 08:22
PROVIDERS: Visit Provider Internal Medicine Gastroenterology
DX: K51.50 Left sided colitis without complications (principal)
CPT/HCPCS: 83631

== ENCOUNTER 2024-11-13 13:33 | Outpatient (AMB) | payer OTHER, SELFPAY ==
--- NOTE | 2024-11-13 13:25 | A.OFFPC_ITS ---
Intake Visit Reasons: Medication review Intake Note: Clonidine - patient was taking for BP and ADHD. Patient discontinued use for a while but would like to restart. Allergies penicillin V Allergy (Intermediate, Verified 11/13/24 13:39) rash Medication List - Last Reconciled 11/13/24 by Neel Kothari CNP acetaminophen (Tylenol Extra Strength) 1,000 mg (2 x 500 mg) PO Q6H PRN albuterol sulfate 90 mcg/actuation 2 puffs inhalation Q4-6H PRN buspirone 5 mg PO BID fluticasone furoate-vilanterol 100-25 mcg/dose (Breo Ellipta) 1 inh inhalation DAILY hydroxyzine HCl 25 mg orally Take one tablet daily if needed for anxiety and take 1-2 before bedtime as needed PRN; 30 days lisdexamfetamine (Vyvanse) 30 mg PO QAM 30 days magnesium glycinate 87.5 tabs PO QID magnesium L-threonate mg PO melatonin 3 mg PO BEDTIME PRN miscellaneous medical supply (Blood Pressure Cuff) blood pressure checks daily and as needed large cuff please omeprazole 40 mg PO DAILY 90 days [Pentadeca Arginate (Pda) 500 mcg PO DAILY] sucralfate 10 mL PO BID testosterone cypionate 140 mg IM QWEEK Tobacco use date assessed: 11/13/24 Dental Screening Dental Screen Date: 11/13/24 Did you have a dental visit in the last 12 months?: Yes Did you have a dental problem in the last 6 months where you did not have access to dental care?: No Was dental information given to patient?: Patient has dentist HPI HPI Comments History of Present Illness Details 29-year-old male [facility] for anxiety, depression, ADHD, and sleep disturbance follow-up. He admits to taking his medications as prescribed without adverse reactions. He notes that he has been making healthy lifestyle changes. He states that his anxiety and depressive symptoms have been controlled. He has been sleeping well since he was recently diagnosed with asthma and started using inhalers. He has history of taking clonidine for hypertension and anxiety and wants to be back on the medication for hypertension. He is followed by [facility] outpatient psychiatry and was last seen on 10/09/2024. No acute symptoms at this time.. [facility] Medical History (Updated 10/02/24 @ 12:25 by Abbi Ramon NP) Generalized headaches SOB (shortness of breath) Anemia Crohn's disease ADHD (attention deficit hyperactivity disorder) 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 Mother Hypertension Maternal Grandfather Diabetes Stroke Other Anemia Social History (Updated 11/13/24 @ 13:31 by Malinda Brown MA) Household Members: Friend(s) Housing: Apartment Are you a primary resident care aide to a significant other at home: No Do you presently have visiting nurse or other home services: No Alcohol intake: never Patient Tobacco Use Status: Never used Tobacco e-Cigarette/Vaping Use: Never Used Second Hand Smoke Exposure: No service: No Current occupational status: employed Current occupation: [employer] Cognitive needs: No Hearing needs: No Vision needs: No Questionnaire PHQ-9 Over the last 2 weeks, how often have you been bothered by any of the following problems? 1. Little interest or pleasure in doing things: not at all 2. Feeling down, depressed, or hopeless: not at all 3. Trouble falling or staying asleep, or sleeping too much: more than half the days (Falling asleep and staying asleep) 4. Feeling tired or having little energy: not at all 5. Poor appetite or overeating: not at all 6. Feeling bad about yourself - or that you are a failure or have let yourself or your family down: not at all 7. Trouble concentrating on things, such as reading the newspaper or watching television: not at all 8. Moving or speaking so slowly that other people could have noticed. Or the opposite - being so fidgety or restless that you have been moving around a lot more than usual: not at all 9. Thoughts that you would be better off or of hurting yourself in some way: not at all Total score: 2 Depression Screening Interpretation: Negative Depression Screening Done: Yes [id number] - PHQ-9 Billing: Yes Source: Developed by Drs. Sloan Almaraz, Molly Nelson, Chris Vazquez and colleagues, with an educational kulwinder from [employer]. Thrive Questionnaire Date Thrive assessed: 05/22/24 CHARLEEN-7 AMB Questionnaire CHARLEEN-7 Date CHARLEEN - 7 assessed: 11/13/24 Feeling nervous, anxious, or on edge: 1 = Several days Not being able to stop or control worryin = Several days Worrying too much about different things: 0 = Not at all Trouble relaxin = Several days Being so restless that it is hard to sit still: 0 = Not at all Becoming easily annoyed or irritable: 0 = Not at all Feeling afraid as if something awful might happen: 0 = Not at all Total CHARLEEN-7 score (0-4 normal; 5-9 mild; 10-14 moderate; 15-21 severe): 3 Source: Developed by Drs. Sloan Almaraz, Molly Nelson, Chris Vazquez and colleagues, with an educational kulwinder from [employer]. CHARLEEN-7 Assessment Billing CHARLEEN-7 Assessment Tool: CHARLEEN-7 Assessment 38209 Review of Systems Const Details: Denies chills, Denies fatigue, Denies fever(s), Denies headache(s) and Denies weakness Cardiac Denies chest pain, Denies claudication, Denies leg edema, Denies lightheadedness, Denies palpitations, Denies dyspnea, Denies dyspnea on exertion, Denies orthopnea and Denies other (Loss of consciousness) Resp Denies cough, Denies excessive phlegm production, Denies dyspnea, Denies dyspnea on exertion, Denies snoring and Denies wheezing Physical exam (Primary Care) Tobacco/Smoking Status: Tobacco use Status Tobacco use date assessed 11/13/24 11/13/24 13:31 Patient Tobacco Use Status Never used Tobacco 11/13/24 13:31 e-Cigarette/Vaping Use Never Used 11/13/24 13:31 PHQ-9: PHQ-9 Score PHQ-9: Total score 2 11/13/24 13:38 Depression Screening Interpretation: Negative Thrive Assessment: Date of Thrive Assessment Date Thrive assessed 05/22/24 11/13/24 13:31 Const Other: Patient is alert and oriented x3 Telehealth Telehealth Telehealth Platform: Telephone Location of provider rendering services: practice address Location of patient: address on file Patient Identification confirmed using: Name, : Yes Telehealth method: voice only Patient verbally consented to treatment: Yes Patient verbally consented to billing insurance company: Yes Patient informed of any privacy concerns related to visit: Yes Coding Level of Care Code Tele Est Pt Level 3 (29114) Diagnoses CHARLEEN (generalized anxiety disorder) F41.1 Major depression F32.9 Attention deficit hyperactivity disorder (ADHD), predominantly inattentive type F90.0 Attention deficit-hyperactivity disorder type: predominantly inattentive Sleep disturbance G47.9 Additional Codes CHARLEEN-7 Assessment Billing - CHARLEEN-7 Assessment Tool: CHARLEEN-7 Assessment 63855 ([id number]) PHQ-9 - 65315 - PHQ-9 Billing: Yes ([id number]) Time Spent (min) 15 Assessment & Plan Assessment & Plan (1) CHARLEEN (generalized anxiety disorder): Code(s): F41.1 - Generalized anxiety disorder Category: Medical Plan: Reports controlled anxiety and depressive symptoms. He has been sleeping well since his recent asthma diagnosis and treatment. Informed that his blood pressure readings at his recent visits at [facility] are controlled and therefore, clonidine is not required at this time. Continue current treatment regimen. Routine exercise encouraged. Continue follow-up with [facility] outpatient psychiatry. Follow-up in 3 months or sooner with worsening or new symptoms. Verbalized understanding and agreed with treatment plan. (2) Major depression: Code(s): F32.9 - Major depressive disorder, single episode, unspecified Category: Medical Plan: Plan as above. (3) ADHD (attention deficit hyperactivity disorder): Code(s): F90.9 - Attention-deficit hyperactivity disorder, unspecified type Category: Medical Qualifiers: Attention deficit-hyperactivity disorder type: predominantly inattentive Qualified Code(s): F90.0 - Attention-deficit hyperactivity disorder, predominantly inattentive type Plan: Plan as above. (4) Sleep disturbance: Code(s): G47.9 - Sleep disorder, unspecified Category: Medical Plan: Plan as above.
== END 2024-11-13 16:17 | disposition home or self-care (01) ==
LOC: HO.HMCFM 13:33
PROVIDERS: PCP Nurse Practitioner Family; Visit Provider Nurse Practitioner Family
DX: F41.1 Generalized anxiety disorder (principal); F32.9 Major depressive disorder, single episode, unspecified; F90.0 Attention-deficit hyperactivity disorder, predominantly inattentive type; G47.9 Sleep disorder, unspecified

== ENCOUNTER → 2024-11-13 13:33 | Outpatient (BNVA) | payer OTHER, SELFPAY | PROVIDERS: PCP Nurse Practitioner Family; Visit Provider Nurse Practitioner Family | DX: F41.1 Generalized anxiety disorder (principal); F90.9 Attention-deficit hyperactivity disorder, unspecified type; F41.9 Anxiety disorder, unspecified; F32.9 Major depressive disorder, single episode, unspecified; F90.0 Attention-deficit hyperactivity disorder, predominantly inattentive type; G47.9 Sleep disorder, unspecified; Z79.899 Other long term (current) drug therapy | CPT/HCPCS: 96127 ==

== ENCOUNTER 2024-12-04 08:31 | Outpatient (AMB) | payer OTHER, SELFPAY ==
--- NOTE | 2024-12-04 08:33 | A.OFFVIS_ITS ---
Vital Signs 12/04/24 08:35 Height 6 ft 3 in Weight 259 lb BMI 32.4 BP 128/90 H Blood Pressure Location Rt brachial Position Sitting Pulse 86 Pulse Source Pulse Oximeter Pulse Oximetry (%) 99 Oxygen Delivery Method Room Air Intake Visit Reasons: 6 mo f/u Intake Note: Follow up care Dietetic Intern Required: No Accompanied by: Self / Same As Patient Allergies penicillin V Allergy (Intermediate, Verified 12/04/24 08:34) rash HPI Comments Details: 29-yr-old male presents for follow-up visit of sleep difficulties. 08/24/2023, in-lab sleep study which was negative for sleep apnea w/ AHI 0.6/hr, but did show PLMS 20/h w/ PLMS arousal index of 3/hr. Patient reports that since the last visit, he has established care with pulmonology. He was diagnosed with asthma and started on a Breo maintenance inhaler and nightly Zyrtec. He states that since starting these, he is sleeping much better and waking up more refreshed. He also notes he has had allergy testing through the local ENT office and [place], which showed multiple environmental allergies. He is considering starting allergy injection therapy. He does continue to use melatonin and hydroxyzine for sleep promotion, prescribed by [facility], psychiatry. He continues to exercise and walk a lot from work. 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 [facility] Medical History (Updated 10/02/24 @ 12:25 by Abbi Ramon NP) Generalized headaches SOB (shortness of breath) Anemia Crohn's disease ADHD (attention deficit hyperactivity disorder) 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 Mother Hypertension Maternal Grandfather Diabetes Stroke Other Anemia Social History Household Members: Friend(s) Housing: Apartment Are you a primary career development coordinator/teacher to a significant other at home: No Do you presently have visiting nurse or other home services: No Alcohol intake: never Patient Tobacco Use Status: Never used Tobacco e-Cigarette/Vaping Use: Never Used Second Hand Smoke Exposure: No service: No Current occupational status: employed Current occupation: [employer] Cognitive needs: No Hearing needs: No Vision needs: No Physical Exam Vital Signs: Last Vital Signs Pulse 86 12/04/24 08:35 BP 128/90 H 12/04/24 08:35 Pulse Ox 99 12/04/24 08:35 Oxygen Delivery Method Room Air 12/04/24 08:35 BMI result Body Mass Index 32.4 Const General: no acute distress Orientation/consciousness: patient oriented x3 Resp Effort & Inspection: normal respiratory effort and able to speak in complete sentences Neuro General: patient oriented x3 Psych Mental Status: mental status grossly normal Speech and movement: Clear speech present Attitude: cooperative Assessment & Plan Assessment & Plan (1) RLS (restless legs syndrome): Code(s): G25.81 - Restless legs syndrome Category: Medical (2) Periodic limb movements of sleep: Code(s): G47.61 - Periodic limb movement disorder Category: Medical (3) Insomnia: Code(s): G47.00 - Insomnia, unspecified Category: Medical Qualifiers: Insomnia type: unspecified Qualified Code(s): G47.00 - Insomnia, unspecified Plan Previous HST and In-lab PSG- no evidence of sleep apnea; however, results did show PLMS a/w arousals at least 3 x/hr. Previous labs- B12, folate, TSH, ferritin > 200- WNL. Supplementing testosterone to achieve goal normal serum level. Patient is sleeping better since treating asthma symptoms. Follow up with pulmonology and ENT for allergy and asthma management. As able, avoid allergen exposures, and consider using low or naturally scented personal and home care products. May continue melatonin and hydroxyzine per Psychiatry. Information previously shared on RLS education resources, such as ?Navigating Life with Restless Legs Syndrome info by Dr. Barrios. Information previously shared my nonpharmacological RLS treatment, such as exercise, physical activity, stretching/yoga, a weighted blanket, and utilizing cotton sheets to minimize overheating. Ensure routine fluid and nutritional intake- even when working. Continues to take Vyvanse as soon as he wakes up in the morning. Previous medication trials: Gabapentin was not tolerated. Pt to follow-up in 6 months or sooner prn. Coding Level of Care Code Est Pt Level 4 (34698) Diagnoses RLS (restless legs syndrome) G25.81 Periodic limb movements of sleep G47.61 Insomnia, unspecified type G47.00 Insomnia type: unspecified
[2024-12-04 08:35] VITALS: BP 128/90; PULSE 86; O2SAT 99; BMI 32.4
== END 2024-12-04 09:16 | disposition home or self-care (01) ==
LOC: HO.HSMS 08:32
PROVIDERS: PCP Hospitalist; Visit Provider Nurse Practitioner Family
DX: G25.81 Restless legs syndrome (principal); G47.61 Periodic limb movement disorder; G47.00 Insomnia, unspecified
CPT/HCPCS: 99214

== ENCOUNTER → 2024-12-04 08:31 | Outpatient (BNVA) | payer OTHER, SELFPAY | PROVIDERS: PCP Hospitalist; Visit Provider Nurse Practitioner Family | DX: G25.81 Restless legs syndrome (principal); G47.61 Periodic limb movement disorder; G47.00 Insomnia, unspecified | CPT/HCPCS: 99212 ==

== ENCOUNTER 2024-12-15 12:52 | Outpatient (AMB) | payer OTHER, SELFPAY ==
--- NOTE | 2024-12-15 13:11 | A.OFFPC_ITS ---
Vital Signs 12/15/24 13:14 Height 6 ft 3 in Weight 260 lb 6 oz BMI 32.5 BP 144/76 H Blood Pressure Location Rt brachial Position Sitting Respiration 13 Pulse 89 Pulse Source Pulse Oximeter Temp 97.8 F Temp Source Oral Pulse Oximetry (%) 98 Oxygen Delivery Method Room Air Intake Visit Reasons: nasal spray for his polyps Intake Note: Patient c/o nasal polyps. 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 Allergies penicillin V Allergy (Intermediate, Verified 12/15/24 13:41) rash Medication List - Last Reconciled 12/15/24 by BHANU Potts- acetaminophen (Tylenol Extra Strength) 1,000 mg (2 x 500 mg) PO Q6H PRN albuterol sulfate 90 mcg/actuation 2 puffs inhalation Q4-6H PRN azelastine intranasal buspirone 5 mg PO BID fluticasone furoate-vilanterol 100-25 mcg/dose (Breo Ellipta) 1 inh inhalation DAILY hydroxyzine HCl 25 mg orally Take one tablet daily if needed for anxiety and take 1-2 before bedtime as needed PRN; 30 days lisdexamfetamine (Vyvanse) 30 mg PO QAM 30 days magnesium glycinate 87.5 tabs PO QID magnesium L-threonate mg PO melatonin 3 mg PO BEDTIME PRN miscellaneous medical supply (Blood Pressure Cuff) blood pressure checks daily and as needed large cuff please omeprazole 40 mg PO DAILY 90 days [Pentadeca Arginate (Pda) 500 mcg PO DAILY] sucralfate 10 mL PO BID testosterone cypionate 140 mg IM QWEEK Tobacco use date assessed: 12/15/24 Dental Screening Dental Screen Date: 12/15/24 Did you have a dental visit in the last 12 months?: Yes Did you have a dental problem in the last 6 months where you did not have access to dental care?: No Was dental information given to patient?: Patient has dentist HPI HPI Comments History of Present Illness Details History of Present Illness - The patient is a 29-year-old male pres enting with difficulty breathing at night. - Reports severe nasal congestion impact ing sleep quality. - Chronic nasal congestion with swelling ; denies fever and sinus pressure. - History of nasal polyps and a diagnosi s of asthma. - Past treatments involve Flonase, Nasac ort Zyrtec - Exposure to allergens worsens symptoms . Mowed grass this week. - mild pain in the left ear noted. - active w/ ent. will start allergy shot s Review of Systems - EENT: Reports nasal congestion and dif ficulty breathing at night. Denies sinus pressure and fever. - Respiratory: Reports asthma. Denies ac fredi respiratory distress. - Allergic/Immunologic: Reports allergy to penicillin. - Head/Ears: Reports history of bilatera l ear infections; mild pain on the left with redness noted. - General: Denies fever, chills, or syst emic symptoms. Physical Exam General: Well developed, well nourished, in no acute distress. Appears stated age. Head: Normocephalic, atraumatic. Eyes: Pupils are equal, round and reactive to light and accommodation. Conjunctivae are clear Ears: trace fluid R TM, intact. L TM + erythema. Nose: + polyps, turbinates edematous. No sinus pressure Pharynx: Clear Discussion Notes During the consultation, we discussed the primary diagnosis of significant nasal obstruction secondary to chronic nasal polyps and asthma, which is impacting the patient's sleep quality. Management strategies were outlined, including the initiation of short-term prednisone to assist in alleviating nasal swelling and use of Afrin nasal spray for the immediate relief of nasal blockage. Explicit caution was given regarding the usage duration of Afrin to avoid the risk of rebound congestion. The patient expressed interest in beginning Dupixent as a maintenance therapy which may benefit him -- this is up to his care team. He will be starting allergy shots to help w/ nasal polyps. The importance of starting allergy immunotherapy was also emphasized. We reviewed potential pharmacy changes for prescription fulfillment and ensured understanding of medication use and symptom management strategies, including follow-up plans and anticipatory guidance on airway improvement post intervention. Patient was given time to ask questions. All questions were answered to their satisfaction. Assessment and Plan 1. Allergic Rhinitis with Nasal Polyps - Initiate short-term prednisone. - Afrin nasal spray: Limit to three nigh ts. - discuss Dupixent for long-term w/ team - Immunotherapy as long-term plan. 2. Asthma - Coordinate asthma management with Dupi xent. - Monitor allergen exposures. - cont inhalers 3. L Otitis Media - Short-term steroidal support for left ear pain. No need for ABT at this time. Patient Instructions - Start prednisone for nasal swelling, t kailash during the day. - Use Afrin nasal spray only for three n ights at bedtime. - Consider beginning Dupixent as discuss ed. - Avoid allergens such as grass; continu e existing asthma medications. - Follow up with planned immunotherapy n ext week. - Use [facility] for medica tion dispensing. Consent Patient was informed and verbally consented to the use of an ambient scribe for clinic note documentation during this visit. [facility] Medical History (Updated 12/15/24 @ 13:53 by Telma Infante, [facility]) Acquired genu valgum of both knees Acute Crohn's disease ADHD (attention deficit hyperactivity disorder) Anemia Arthritis Crohn's disease Depression Eczema Generalized headaches Scoliosis SOB (shortness of breath) Spondylosis of lumbosacral spine without myelopathy Surgical History Hx of colonoscopy History of esophagogastroduodenoscopy (EGD) History of arthroscopy of both knees Family History Father No problems noted. Mother Hypertension Maternal Grandfather Diabetes Stroke Other Anemia Social History Household Members: Friend(s) Housing: Apartment Are you a primary critical care nurse to a significant other at home: No Do you presently have visiting nurse or other home services: No Alcohol intake: never Patient Tobacco Use Status: Never used Tobacco e-Cigarette/Vaping Use: Never Used Second Hand Smoke Exposure: No service: No Current occupational status: employed Current occupation: [employer] Cognitive needs: No Hearing needs: No Vision needs: No Questionnaire Thrive Questionnaire Date Thrive assessed: 05/22/24 I am a: Patient What is your living situation today?: I have a steady place to live Within the past 12 months, did the food you bought not last and you didn't have the money to get more?: Never true Within the past 12 months, did you worry whether your food would run out before you got money to buy more?: Never true Do you have trouble paying for medicines?: No Do you have trouble getting transportation to medical appointments?: No Do you have trouble paying your heating and electricity bill?: No Do you have trouble taking care of your child, family member or friend?: No Do you have trouble with day-to-day activities such as bathing, preparing meals, shopping, managing finances, etc.?: Yes Are you currently unemployed and looking for a job?: No Are you interested in more education?: No Please select the resources that you would like help with: None THRIVE Score: 0 CHARLEEN-7 AMB Questionnaire CHARLEEN-7 Date CHARLEEN - 7 assessed: 08/07/24 Source: Developed by Drs. Sloan Almaraz, Molly Nelson, Chris Vazquez and colleagues, with an educational kulwinder from [employer]. Physical exam (Primary Care) Vital Signs: Last Vital Signs Temp 97.8 F 12/15/24 13:14 Pulse 89 12/15/24 13:14 Resp 13 12/15/24 13:14 BP 144/76 H 12/15/24 13:14 Pulse Ox 98 12/15/24 13:14 Oxygen Delivery Method Room Air 12/15/24 13:14 BMI result Body Mass Index 32.5 Tobacco/Smoking Status: Tobacco use Status Tobacco use date assessed 12/15/24 12/15/24 13:15 Patient Tobacco Use Status Never used Tobacco 12/15/24 13:15 e-Cigarette/Vaping Use Never Used 12/15/24 13:15 Thrive Assessment: Date of Thrive Assessment Date Thrive assessed 05/22/24 12/15/24 13:15 Coding Level of Care Code Est Pt Level 4 (03013) Complex EM visit Add On G2211 Diagnoses Nasal polyps J33.9 Moderate persistent asthma without complication J45.40 Asthma severity: moderate Asthma persistence: persistent Asthma complication type: uncomplicated Environmental allergies Z91.09 Assessment & Plan Assessment & Plan (1) Nasal polyps: Code(s): J33.9 - Nasal polyp, unspecified Category: Medical (2) Asthma: Code(s): J45.909 - Unspecified asthma, uncomplicated Category: Medical Qualifiers: Asthma severity: moderate Asthma persistence: persistent Asthma complication type: uncomplicated Qualified Code(s): J45.40 - Moderate persistent asthma, uncomplicated (3) Environmental allergies: Code(s): Z91.09 - Other allergy status, other than to drugs and biological substances Category: Medical Plan . Medications: New oxymetazoline 0.05% (Afrin (oxymetazoline)) 2 sprays intranasal Q12H PRN 15 mL 0RF nasal congestion 3 days prednisone 20 mg PO DAILY 5 tabs 0RF
[2024-12-15 13:14] VITALS: BP 144/76; PULSE 89; RESP 13; TEMP 36.6; O2SAT 98; BMI 32.5
== END 2024-12-15 13:49 | disposition home or self-care (01) ==
LOC: HO.HMCFM 12:53
PROVIDERS: PCP Hospitalist; Visit Provider Nurse Practitioner Family
DX: J33.9 Nasal polyp, unspecified (principal); J45.40 Moderate persistent asthma, uncomplicated; Z91.09 Other allergy status, other than to drugs and biological substances

== ENCOUNTER → 2024-12-15 12:52 | Outpatient (BNVA) | payer OTHER, SELFPAY | PROVIDERS: PCP Hospitalist; Visit Provider Nurse Practitioner Family | DX: J45.40 Moderate persistent asthma, uncomplicated (principal); J33.9 Nasal polyp, unspecified; J45.909 Unspecified asthma, uncomplicated; H66.92 Otitis media, unspecified, left ear; Z91.09 Other allergy status, other than to drugs and biological substances | CPT/HCPCS: 99212 ==

== ENCOUNTER 2024-12-18 10:03 | Outpatient (REF) | payer OTHER, SELFPAY ==
[2024-12-18 11:12] LABS: MANUAL DIFF FLAG NO
[2024-12-18 11:39] LABS: Hematocrit 53.1 % (42.0-52.0); Hemoglobin 17.6 g/dl (14.0-18.0); Imm Gran Abs Auto 0.02 X10*3/uL (0.00-0.03); Imm Gran Pct Auto 0.3 % (0.0-0.4); Lymphocytes Absolute Auto 1.6 X10*3/uL (1.2-4.9); Mean Corpuscular HGB Conc 33.1 g/dl (31.0-36.0); Mean Corpuscular Hemoglobin 29.4 pg (27.0-33.0); Mean Corpuscular Volume 88.8 fL (80.0-98.0); NRBC Abs Auto 0.000 X10*3/uL (0.0-0.012); NRBC Pct Auto 0.0 /100WBC (0.0-0.2); Platelet Count 233 X10*3/uL (160-400); Red Blood Count 5.98 X10*6/uL (4.60-5.80); White Blood Count 6.6 X10*3/uL (4.8-10.8)
[2024-12-18 12:15] LABS: Alanine Aminotransferase 42 U/L (0-40); Albumin Level 5.0 g/dL (3.5-5.0); Anion Gap 13 (12-20); Aspartate Amino Transferase 24 U/L (5-37); Blood Urea Nitrogen 15 mg/dL (9-16); Calcium 9.3 mg/dL (8.4-10.2); Carbon Dioxide 28 mmol/L (22-29); Chloride 106 mmol/L (96-108); Estimated Glomerular Filt Rate > 60; Potassium 4.3 mmol/L (3.3-5.1); Sodium 143 mmol/L (135-145); Total Protein 7.5 g/dL (6.5-8.0)
[2024-12-18 12:16] LABS: Alkaline Phosphatase 66 U/L (39-117)
[2024-12-19 23:29] LABS: Class Almond 1; Class Brazil Nut 0; Class Cashew 0; Class Codfish 0; Class Cow's Milk 1; Class Egg white 0/1; Class Hazelnut 2; Class Macadamia Nut 0/1; Class Peanut 0/1; Class Salmon 0; Class Scallop 0; Class Sesame Seed 0/1; Class Shrimp 0; Class Soybean 0; Class Tuna 0; Class Walnut 0; Class Wheat 0/1; F345-IgE Macadmia Nut 0.11 kU/L
== END 2024-12-18 10:04 | disposition home or self-care (01) ==
LOC: HO.LAB 10:03
PROVIDERS: PCP Nurse Practitioner Family; Visit Provider Internal Medicine Gastroenterology
DX: K50.918 Crohn's disease, unspecified, with other complication (principal); K75.81 Nonalcoholic steatohepatitis (NASH); Z91.018 Allergy to other foods
CPT/HCPCS: 36415; 80053; 85025; 86003; 86140; 99212

== ENCOUNTER 2024-12-18 10:03 | Outpatient (AMB) | payer OTHER, SELFPAY ==
--- NOTE | 2024-12-18 10:07 | A.OFFVIS_ITS ---
Vital Signs 12/18/24 10:09 Height 6 ft 3 in Weight 255 lb 11.779 oz BMI 32.0 BP 141/83 H Blood Pressure Location Lt brachial Position Sitting Pulse 77 Intake Visit Reasons: 6 mo f/u Intake Note: Tyler presents in the office as a 6 monthn follow up. CC: No concerns at thsi time. Allergies penicillin V Allergy (Intermediate, Verified 12/15/24 13:41) rash HPI HPI 6 mo f/u: Details: 29 yr old m w hx of crohns and non compliance being seen for f/u RECAP: Initially diagnosed with crohsn aged 17 I saw patient as inpatient consult 02/2021, had also seen him at [facility] where I use to work Pain was sudden onset in the mid abdomen and sharp and stabbing in nature. It was at least 5/10 in severity with no relieving or exacerbating factors. He had no nausea or vomiting, had been passing normal colored stool without blood or melena. Not been using nsaids. No fever or chills, appetite had been good. he is not on any medication for crohns, had been on humira in past but stopped due to intolerance and was lost to follow up with GI thereafter, controlling his disease with diet. Labs significant for WBC count of 13.9, ALT of 49, CRP mildly raised CT with few mildly prominent fecalized small bowel loops in right lower quadrant with adjacent mesenteric stranding and small amount of free fluid suspicious for sequelae of small-bowel obstruction He was commenced on antibiotics and fluids I saw him again and commenced on entyvio he went to ED 11/2021--Ct scan with normal GI tract, no acute inflammation Stool PCR was pos for E coli He then missed the entyvio dose October 2021, and prior dose was 08/2021 so he was restarted on entyvio with re induction dosing MRe: 01/31-- normal EGD/colo: 05/04--internal hemorrhoids and erosive esophagitis --neg inflammation he did go to the Ed due to sharp upper abd pains worse with food since last few days, no diarrhe,a no vomiting or nausea, Ct was done with some degen changes in spine and moderate constipation, to my read also duodenal, gastric thickening labs were nml colonoscopy: 05/06 Endoscopy Findings: esophagitis Colonoscopy Findings: mild ileitis internal hemorrhoids Path: active reflux type changes in esophagus microgranulomas seen in ileum and colon INTERIM: still on entyvio can have crampy pains, stool consistency is more mushy no blood in stool denies fevers EXAM: GENERAL: The patient is well developed and nontoxic. VITAL SIGNS:see workflow HEENT: Nonicteric sclerae, PERRLA, EOMI. Oropharynx clear. Moist mucous membranes. Conjunctivae appear well perfused. No thyroid mass. CHEST: Chest wall is nontender. HEART: Regular rate and rhythm without murmurs. LUNGS: Clear to auscultation bilaterally. ABDOMEN: Soft, positive bowel sounds, nontender, no organomegaly.no flank tenderness SKIN: No rash, no excessive bruising, petechiae, or purpura. NEUROLOGIC: Cranial nerves II-XII intact without motor/sensory deficit. 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 Mother Hypertension Maternal Grandfather Diabetes Stroke Other Anemia Social History Household Members: Friend(s) Housing: Apartment Are you a primary healthcare market consultant to a significant other at home: No Do you presently have visiting nurse or other home services: No Alcohol intake: never Patient Tobacco Use Status: Never used Tobacco e-Cigarette/Vaping Use: Never Used Second Hand Smoke Exposure: No service: No Current occupational status: employed Current occupation: [employer] Cognitive needs: No Hearing needs: No Vision needs: No Physical Exam Vital Signs: Last Vital Signs Pulse 77 12/18/24 10:09 BP 141/83 H 12/18/24 10:09 BMI result Body Mass Index 32.0 Assessment & Plan Assessment & Plan (1) Crohn's disease: Code(s): K50.90 - Crohn's disease, unspecified, without complications Category: Medical Qualifiers: Digestive disease complication type: other complication Gastrointestinal tract location: unspecified location Qualified Code(s): K50.918 - Crohn's disease, unspecified, with other complication Plan: as above Orders: Orders CT enterography Today K50.918 - Crohn's disease, unspecified, with other complication H Pylori Breath Test Today K50.918 - Crohn's disease, unspecified, with other complication C Reactive Protein Today K50.918 - Crohn's disease, unspecified, with other complication Lactoferrin, Fecal, Quant. Today K50.918 - Crohn's disease, unspecified, with other complication, K51.50 - Left sided colitis without complications Rast Allergen Today Z91.018 - Allergy to other foods Complete Blood Count Auto Diff Today K50.918 - Crohn's disease, unspecified, with other complication Comprehensive Met. Panel Today K50.918 - Crohn's disease, unspecified, with other complication, K75.81 - Nonalcoholic steatohepatitis (OCHOA) Coding Level of Care Code Est Pt Level 4 (32615) Diagnoses Crohn's disease with other complication, unspecified gastrointestinal tract location K50. Digestive disease complication type: other complication Gastrointestinal tract location: unspecified location
[2024-12-18 10:09] VITALS: BP 141/83; PULSE 77; BMI 32.0
== END 2024-12-18 10:40 | disposition home or self-care (01) ==
LOC: HO.HGI 10:04
PROVIDERS: PCP Nurse Practitioner Family; Visit Provider Internal Medicine Gastroenterology
DX: K50.918 Crohn's disease, unspecified, with other complication (principal)
CPT/HCPCS: 99214

== ENCOUNTER 2024-12-19 08:07 | Outpatient (REF) | payer OTHER, SELFPAY ==
[2024-12-23 00:44] LABS: Lactoferrin, Fecal, Quant. <6.25 mcg/mL (<7.25)
== END 2024-12-19 08:08 | disposition home or self-care (01) ==
LOC: HO.LNP 08:07
PROVIDERS: Visit Provider Internal Medicine Gastroenterology
DX: K50.918 Crohn's disease, unspecified, with other complication (principal)
CPT/HCPCS: 83631

== ENCOUNTER 2024-12-19 08:42 | Outpatient (REF) | payer OTHER, SELFPAY ==
--- NOTE | 2024-12-19 08:47 | PFT_ITS ---
Indication: Asthma Spirometry FEV1 to FVC pre bronchodilators 70% post bronchodilators 71%; FEV1 5.23 L; FVC 7.33 L. No significant response to bronchodilators noted. Lung Volumes Total lung capacity 118% predicted; residual volume 104% predicted Diffusion Capacity DLCO 119% predicted Comparisons None Interpretation There is a partial reversible obstruction consistent with a diagnosis of uncontrolled asthma. No significant response to bronchodilators noted. The patient does have a trend of hyperinflation secondary to the obstructive airway disease. Diffusing capacity is high normal. Clinical correlation warranted. MTDD
[2024-12-19 09:28] VITALS: PULSE 75; O2SAT 99
== END 2024-12-19 08:43 | disposition home or self-care (01) ==
LOC: HO.RESP 08:42
PROVIDERS: PCP Nurse Practitioner Family; Visit Provider Nurse Practitioner Family
DX: J45.909 Unspecified asthma, uncomplicated (principal)
CPT/HCPCS: 94010; 94640; 94727; 94729

== ENCOUNTER → 2024-12-19 08:47 | Outpatient (BNV) | payer OTHER, SELFPAY | PROVIDERS: PCP Nurse Practitioner Family; Visit Provider Hospitalist | DX: J45.909 Unspecified asthma, uncomplicated (principal) | CPT/HCPCS: 94060; 94727; 94729 ==

== ENCOUNTER 2024-12-22 11:49 | Outpatient (AMB) | payer OTHER, SELFPAY ==
[2024-12-22 12:25] VITALS: BP 128/88; PULSE 84; TEMP 37.1; O2SAT 95; BMI 31.9
--- NOTE | 2024-12-22 12:25 | AM.OFFWIN_ITS ---
Intake Vital Signs 12/22/24 12:25 Height 6 ft 3 in Weight 255 lb BMI 31.9 BP 128/88 Blood Pressure Location Lt brachial Position Sitting Pulse 84 Pulse Source Pulse Oximeter Temp 98.8 F Temp Source Oral Pulse Oximetry (%) 95 Oxygen Delivery Method Room Air Intake Visit Reasons: asthma hard time breathing Intake Note: pt presents with dyspnea, , fatigue Patient Tobacco Use Status: Never used Tobacco Allergies penicillin V Allergy (Intermediate, Verified 12/22/24 12:28) rash Do you need a note to return to daycare/school/sports/work: No HPI HPI Comments History of Present Illness Details This is a 29-year-old male with a past medical history of environmental allergies, asthma, anxiety, depression and ADHD presenting for evaluation of his asthma. Patient states he had pulmonary function tests performed 2 days ago and felt that he has had to use his albuterol more often since that time. Patient takes Breo once daily and albuterol 2 to 3 times a day. Upon further questioning the patient continues to use his albuterol 2 to 3 times daily as Zyrtec and Flonase as before. He denies having any fevers, chills, otalgia, pharyngitis, chest pain, cough or shortness of breath. [facility] Medical History Generalized headaches SOB (shortness of breath) Anemia Crohn's disease ADHD (attention deficit hyperactivity disorder) 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 Mother Hypertension Maternal Grandfather Diabetes Stroke Other Anemia Social History Household Members: Friend(s) Housing: Apartment Are you a primary care transitions manager to a significant other at home: No Do you presently have visiting nurse or other home services: No Alcohol intake: never Patient Tobacco Use Status: Never used Tobacco e-Cigarette/Vaping Use: Never Used Second Hand Smoke Exposure: No service: No Current occupational status: employed Current occupation: [employer], [employer] Cognitive needs: No Hearing needs: No Vision needs: No Review of Systems Const All systems reviewed & are unremarkable except as noted in HPI and below Reports no additional complaints Eyes Reports no additional complaints ENT Reports no additional complaints, Denies otalgia, Denies sinus pain, Denies sinus pressure and Denies sore throat Card Denies chest pain and Denies dyspnea Resp Denies cough and Denies dyspnea GI Reports no additional complaints Reports no additional complaints Musc Reports no additional complaints Skin/Breast Reports system reviewed and no additional complaints, except as documented Neuro Reports no additional complaints Psych Reports no additional complaints Physical Exam Vital Signs: Last Vital Signs Temp 98.8 F 12/22/24 12:25 Pulse 84 12/22/24 12:25 BP 128/88 12/22/24 12:25 Pulse Ox 95 12/22/24 12:25 Oxygen Delivery Method Room Air 12/22/24 12:25 BMI result Body Mass Index 31.9 Const General: cooperative, healthy appearing, comfortable, no acute distress, well developed, alert, awake and Physically active; No ill appearing Nutritional Appearance: well nourished Orientation/consciousness: patient oriented x3 Limitations: no limitations HEENT Head: Yes normal to inspection and Yes normocephalic Ears: hearing grossly normal bilaterally, external ears normal, TM's normal bilaterally and EAC's normal General nose exam: Normal external nose present Face and sinus: Yes normal facial exam Mouth: Normal oral and palatal mucosa present Throat: Yes posterior oropharynx normal Eyes General: appearance normal, both eyes and all related structures Neck Lymphatic: no lymphadenopathy noted Resp Effort & Inspection: normal respiratory effort, able to speak in complete sentences, no audible wheezes, no cough, not labored, no nasal flaring, not tachypneic and no tripod positioning Auscultation: clear to auscultation bilaterally Cardio Rate: regular rate Rhythm: regular rhythm Skin General skin exam: no rashes or lesions noted Neuro General: patient oriented x3 Psych Appearance: grossly normal Mental Status: mental status grossly normal Insight: Good insight present (Psych) Judgement: Good judgement present (Psych) Assessment & Plan Assessment & Plan (1) Asthma: Comment: Patient is in no acute distress, is not hypoxic, febrile or tachypneic. 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 Code(s): J45.909 - Unspecified asthma, uncomplicated Qualifiers: Asthma severity: mild Asthma persistence: persistent Asthma complication type: uncomplicated Qualified Code(s): J45.30 - Mild persistent asthma, uncomplicated Plan: Continue medications as previously prescribed, follow up with pulmonology on January 09 as previously scheduled. Patient is invited to return to the walk-in for any exacerbation of his symptoms. Coding Level of Care Code Est Pt Level 3 (74397) Diagnoses Mild persistent asthma without complication J45.30 Asthma severity: mild Asthma persistence: persistent Asthma complication type: uncomplicated Time Spent (min) 20
== END 2024-12-22 13:37 | disposition home or self-care (01) ==
PROVIDERS: PCP Nurse Practitioner Family; Visit Provider Physician Assistant
DX: J45.30 Mild persistent asthma, uncomplicated (principal)

== ENCOUNTER → 2024-12-22 11:49 | Outpatient (BNVA) | payer OTHER, SELFPAY | PROVIDERS: PCP Nurse Practitioner Family; Visit Provider Physician Assistant | DX: J45.30 Mild persistent asthma, uncomplicated (principal); F41.9 Anxiety disorder, unspecified; F32.A Depression, unspecified; F90.9 Attention-deficit hyperactivity disorder, unspecified type; Z91.09 Other allergy status, other than to drugs and biological substances | CPT/HCPCS: 99212 ==

== ENCOUNTER 2024-12-26 09:53 | Outpatient (AMB) | payer OTHER, SELFPAY ==
--- NOTE | 2024-12-26 09:55 | AM.OFFWIN_ITS ---
Intake Vital Signs 12/26/24 09:56 Height 6 ft 3 in Weight 255 lb BMI 31.9 BP 140/62 H Blood Pressure Location Rt brachial Position Sitting Pulse 79 Pulse Source Pulse Oximeter Temp 98.7 F Temp Source Oral Pulse Oximetry (%) 98 Oxygen Delivery Method Room Air Intake Visit Reasons: ep ear pain both ears Intake Note: pt presents with bilateral ear pain starting last week, pt states s/s on/off for a couple months- recently rx'd with zpak and ear drops through another urgent care a few days ago- rx's unhelpful Patient Tobacco Use Status: Never used Tobacco Allergies penicillin V Allergy (Intermediate, Verified 12/26/24 09:58) rash Do you need a note to return to daycare/school/sports/work: No HPI HPI Comments History of Present Illness Details History of Present Illness - The patient is a 29-year-old male pres enting with ear pressure, pain, and fluid discharge in the ears. - Symptoms have persisted intermittently for several months, with previous treatments proving ineffective. - The patient uses allergy medications a nd has seen an ENT specialist last week, who recommended immunotherapy shots. - He was also seen in another urgent car e last week and prescribed a z-devin and ear drops. - He has not had a change in the symptom s but does feel like the drops are helping him. - He was on prednisone in the past. - He takes allergy medications and Flona se as well. - He denies hearing loss, LOVE, dizziness, CP, SOB, abd pain, n/v/d, sore throat, or cough. Physical Exam General: Cooperative, healthy appearing, comfortable, no acute distress and well developed Orientation: Patient oriented x3 Limitations: No limitations Head: Normal to inspection Ears: Hearing grossly normal bilaterally. No cerumen noted in the canals bilaterally. Erythema noted but no swelling in the canal. TM is clear with effusion noted. No bulging TM noted. Nose: Clear mucosa noted. Face and sinus: Normal facial exam. No TTP of the sinuses noted. Eyes: Appearance normal, both eyes and all related structures Neck: Normal visual inspection and Yes full ROM. No lympadenopathy noted. Respiratory: Normal respiratory effort and able to speak in complete sentences. Clear to auscultation bilaterally Cardiovascular: Regular rate and rhythm. Normal S1 and S2 Skin: No rashes or lesions noted Patient was informed and verbally consented to the use of an ambient scribe for clinic note documentation during this visit. 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 Mother Hypertension Maternal Grandfather Diabetes Stroke Other Anemia Social History Household Members: Friend(s) Housing: Apartment Are you a primary home health care social worker to a significant other at home: No Do you presently have visiting nurse or other home services: No Alcohol intake: never Patient Tobacco Use Status: Never used Tobacco e-Cigarette/Vaping Use: Never Used Second Hand Smoke Exposure: No service: No Current occupational status: employed Current occupation: [employer], [employer] Cognitive needs: No Hearing needs: No Vision needs: No Review of Systems Const All systems reviewed & are unremarkable except as noted in HPI and below Physical Exam Vital Signs: Last Vital Signs Temp 98.7 F 12/26/24 09:56 Pulse 79 12/26/24 09:56 BP 140/62 H 12/26/24 09:56 Pulse Ox 98 12/26/24 09:56 Oxygen Delivery Method Room Air 12/26/24 09:56 BMI result Body Mass Index 31.9 Assessment & Plan Assessment & Plan (1) Chronic pain of both ears: Code(s): H92.03 - Otalgia, bilateral; G89.29 - Other chronic pain Plan Most likely allergic rhinitis vs ET dysfunction vs OM vs OE plan - Continue with current allergy medications including Flonase and Zyrtec. - Schedule and proceed with recommended immunotherapy shots for allergy management. - Prescribe ear drops containing steroids to alleviate inflammation and pain. - Consider another course of prednisone to manage inflammation. - follow up with PCP Medications: New [id number] 3.5-10,000-1 mg/mL-unit/mL-% 4 drps otic (ears) Q8H PRN 10 mL 1RF bilateral ear pain 10 days prednisone 40 mg (2 x 20 mg) PO DAILY 10 tabs 0RF 5 days Coding Level of Care Code Est Pt Level 3 (11727) Diagnoses Chronic pain of both ears H92.03; G89.29
[2024-12-26 09:56] VITALS: BP 140/62; PULSE 79; TEMP 37.1; O2SAT 98; BMI 31.9
== END 2024-12-26 10:46 | disposition home or self-care (01) ==
PROVIDERS: PCP Nurse Practitioner Family; Visit Provider Physician Assistant Medical
DX: H92.03 Otalgia, bilateral (principal); G89.29 Other chronic pain

== ENCOUNTER → 2024-12-26 09:53 | Outpatient (BNVA) | payer OTHER, SELFPAY | PROVIDERS: PCP Nurse Practitioner Family; Visit Provider Physician Assistant Medical | DX: H92.03 Otalgia, bilateral (principal); G89.29 Other chronic pain | CPT/HCPCS: 99212 ==

== ENCOUNTER 2025-01-09 15:17 | Outpatient (AMB) | payer OTHER, SELFPAY ==
--- NOTE | 2025-01-09 15:47 | MHC.OFFVIS ---
Vital Signs 01/09/25 15:49 Height 6 ft 3 in Weight 253 lb 8 oz BMI 31.7 BP 108/66 Blood Pressure Location Rt brachial Position Sitting Pulse 73 Pulse Source Pulse Oximeter Pulse Oximetry (%) 97 Oxygen Delivery Method Room Air Intake Visit Reasons: asthma Allergies penicillin V Allergy (Intermediate, Verified 01/09/25 15:51) rash HPI HPI asthma: Details: Tyler is a pleasant 29-year-old male, never smoker, with underlying asthma, HTN and Crohn's disease. He was initially referred by GI for pulmonary evaluation due to worsening dyspnea. The patient reports a history of asthma diagnosed in childhood, with a significant episode requiring hospitalization for three days. Symptoms had resolved as he aged but have recently returned, characterized by a sensation of inadequate air intake. Reviewed spirometry from [facility] 2008, which revealed mild obstructive defect suggestive of asthma, with significant improvement upon administration of albuterol, particularly in the small to medium airways. At the last visit he empirically started on Breo 100 mcg however had suboptimal effect requiring prednisone with improvements in symptoms and switched to Breo 200 mcg about two weeks ago. He reports improvement with increased dose however feels allergies have significantly triggered symptoms, requiring albuterol MDI BID. He is going to start allergen immunotherapy next month with ENT. 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 Mother Hypertension Maternal Grandfather Diabetes Stroke Other Anemia Social History Household Members: Friend(s) Housing: Apartment Are you a primary home care aide to a significant other at home: No Do you presently have visiting nurse or other home services: No Alcohol intake: never Patient Tobacco Use Status: Never used Tobacco e-Cigarette/Vaping Use: Never Used Second Hand Smoke Exposure: No service: No Current occupational status: employed Current occupation: [employer] Cognitive needs: No Hearing needs: No Vision needs: No Review of Systems Const Denies chills, Denies excessive sweating, Denies fever(s), Denies headache(s) and Denies night sweats Eyes Denies dry eyes, Denies irritation and Reports itchy eyes ENT Reports Normal hearing present, Denies headache(s), Denies post nasal drip and Denies sore throat Card Denies chest pain, Denies chest pain at rest, Denies chest pain with activity, Denies claudication, Denies leg edema, Reports dyspnea on exertion, Denies orthopnea and Denies paroxysmal nocturnal dyspnea Resp Denies chest congestion, Denies excessive phlegm production, Denies pain on inspiration, Denies pain with cough, Reports dyspnea on exertion, Denies stridor and Reports wheezing Musc Denies myalgias Neuro Reports Normal hearing present and Denies headache(s) Endo Denies excessive sweating Niall/Lymph Denies lymphadenopathy Aller/Immun Reports itchy eyes, Reports seasonal rhinorrhea and Reports wheezing Physical Exam Vital Signs: Last Vital Signs Pulse 73 01/09/25 15:49 BP 108/66 01/09/25 15:49 Pulse Ox 97 01/09/25 15:49 Oxygen Delivery Method Room Air 01/09/25 15:49 BMI result Body Mass Index 31.7 Const General: cooperative, healthy appearing, comfortable, no acute distress, well developed and alert Nutritional Appearance: obese Orientation/consciousness: patient oriented x3 Limitations: no limitations HEENT Head: Yes normal to inspection, Yes normocephalic and Yes atraumatic Ears: hearing grossly normal bilaterally and external ears normal Eyes General: appearance normal, both eyes and all related structures Eyelids: Yes eyelids normal Sclerae: sclerae normal EOM: EOMs intact bilaterally Neck Neck: Yes normal visual inspection and Yes no lymphadenopathy Lymphatic: no lymphadenopathy noted Chest Chest palpation & inspection: normal inspection of the chest Resp Effort & Inspection: normal respiratory effort, able to speak in complete sentences, no audible wheezes, no cough, no stridor, not tachypneic, no tripod positioning and no use of accessory muscles Auscultation: clear to auscultation bilaterally Cardio Jugular venous distension: no JVD Rate: regular rate Rhythm: regular rhythm Skin Other: warm, dry General skin exam: no rashes or lesions noted Neuro General: patient oriented x3 Cranial nerves: Yes Normal hearing present Cognition (Neuro): normal cognition Gait exam (Neuro): Normal gait present Extrem General: Yes normal to inspection, Yes capillary refill normal, Yes no clubbing, cyanosis or edema and Yes no pedal edema Psych Appearance: grossly normal and well kempt Speech and movement: Normal speech and movement present and Clear speech present Affect: normal affect Attitude: cooperative Thought process: Normal thought process present Thought content: Normal thought content present Insight: Good insight present (Psych) Judgement: Good judgement present (Psych) Assessment & Plan Assessment & Plan (1) Asthma: Code(s): J45.909 - Unspecified asthma, uncomplicated Category: Medical Qualifiers: Asthma complication type: uncomplicated Asthma persistence: persistent Asthma severity: mild Qualified Code(s): J45.30 - Mild persistent asthma, uncomplicated (2) Environmental allergies: Code(s): Z91.09 - Other allergy status, other than to drugs and biological substances Category: Medical Plan PFT suggestive of poorly controlled asthma. At this time symptoms improving with increased dose of Breo encouraged to continue and will trial Singulair. Adverse effects reviewed. He is aware to call if symptoms change. If patient's symptoms continue to be controlled encouraged to start immunotherapy however cautioned patient regarding potential effects of worsening asthma. He is aware to monitor symptoms. May need to consider biologic. All questions were answered and patient is in agreement of plan. Will follow up in 6-8 weeks or sooner if needed. Medications: New montelukast (Singulair) 10 mg PO BEDTIME 30 tabs 3RF Refilled albuterol sulfate 90 mcg/actuation 2 puffs inhalation Q4-6H PRN 6.7 grams 0RF shortness of breath or wheezing R06.02 - Shortness of breath Coding Level of Care Code Est Pt Level 4 (18285) Diagnoses Mild persistent asthma without complication J45.30 Asthma complication type: uncomplicated Asthma persistence: persistent Asthma severity: mild Environmental allergies Z91.09
[2025-01-09 15:49] VITALS: BP 108/66; PULSE 73; O2SAT 97; BMI 31.7
--- OUTSIDE RECORDS SUMMARY | 2025-01-09 16:36 | XMS_ITS | Data Portability ---
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 [email or web address] Not available 05/29/2024 12:35:44 12/22/2024 12/22/2024 29-year-old male presents for evaluation of his allergies and concerns about nasal polyps. On examination he has 3+ right inferior turbinate hypertrophy and 2+ left inferior turbinate hypertrophy with a left septal deviation. No adventitious lung sounds are auscultated on exam today. On nasal endoscopy there is no evidence of nasal polyps. Reassured the patient that he is visualizing the inferior turbinate in each nasal cavity since they are hypertrophied, likely secondary to his allergies. Discussed that the patient is not a candidate for Dupixent since there is no evidence of nasal polyps and his recent eosinophil count is low. Recommended immunotherapy since his skin prick testing showed severe allergies to trees, weeds, molds, grasses, dust mite, cat, and dog. Patient gets off work at 3:00 PM and would be able to stop by the office for his allergy shots after. I have reached out to the allergy department to get him scheduled for SCIT. Recommended continuing the Zyrtec, Flonase, and azelastine since he is having symptom improvement with that regimen. We will follow him every 6 months while he is on SCIT. Patient has an updated EpiPen at home and he will call/message us when it expires. [email or web address] Not available 12/22/2024 11:46:58 Plan of Treatment Reminders Order Date Submit Date Provider Last Modified By Organization Details Last Modified Time Details Appointments Allergy new injection 2024 03:30P [facility] Not available Not available Not available Lab None recorded. Referral None recorded. Procedures allergy testing, skin prick (PROC) 2024 025 [email or web address] Not available 12/25/2024 16:10:45 intraderm al allergy skin testing (PROC) 2024 025 [email or web address] Not available 12/25/2024 16:10:45 pulmonary function test procedure (PROC) 2024 025 [email or web address] Not available 12/25/2024 16:10:45 pulse oximetry (PROC) 2024 025 [email or web address] Not available 12/25/2024 16:10:45 allergen immunothe rapy; multiple injection s (PROC) 2024 025 [email or web address] Not available 06/06/2024 12:50:31 allergy testing, skin prick (PROC) 2023 024 [email or web address] Not available 12/27/2023 15:10:30 intraderm al allergy skin testing (PROC) 2023 024 [email or web address] Not available 12/27/2023 15:10:40 pulmonary function test procedure (PROC) 2023 024 [email or web address] Not available 12/27/2023 15:10:48 pulse oximetry (PROC) 2023 024 [email or web address] Not available 12/27/2023 15:15:49 Surgeries None recorded. Imaging CT, sinuses, w/o contrast 2023 024 [facility], [address] [place] [address], [place], [address], 01/31/2024 23:08:27 Medication Orders epinephri ne 0.3 mg/0.3 mL injection , auto-inje ctor 2024 025 [facility] #[id number], [address] [place], [address], 05/29/2024 12:32:14 azelastin e 137 mcg (0.1 %) nasal spray 2024 025 [facility] #[id number], [address] [place], [address], 05/29/2024 12:34:07 Patient TargetsNo targets recorded. Patient Instructions Encounter Date Encounter Id Patient Instructions Last Modified By Organization Details Last Modified Time 12/27/2023 [id number] Nursing Documentation for Allergy Testing: Ordering Provider [...] date Yes Other: Written by: Luzmaria Waddell [email or web address] Not available 12/27/2023 15:09:39 Reason for Referral None Reported. Results Created Date Observation Date Name Description Value Unit Range Abnormal Flag Note LastModifiedBy Organization Detail LastModifiedTime 12/01/19 24 07/15/2022 imagi ng/di agnos tic resul t No observ ation record ed. [email or web address] Not Available 07:07:48 01/31/20 24 01/31/2024 CT, sinus es, w/o contr ast No observ ation record ed. [email or web address] [facility] [address], [place], [address], 02/01/2024 08:28:32 05/29/19 25 audio gram No observ ation record ed. BARCODE Not Available 2024 15:14:57 Result Notes None recorded. Problems Name Problem SNOMED Code Status Onset Date Resolution Date Notes Provider Name and Address Organization Details Recorded Time Impacted cerumen in right ear 64644420114 08881 Active 2016 Impacted cerumen, right ear; Note: Date Diagnosed : 04/29/2016 4:34 PM (H61.21) Not Available [facility] 4 02:13:30 Allergic rhinitis caused by pollen 99216751 Active 2019 Allergy NOS due to pollen; Note: Date Diagnosed : 11/16/2019 11:51 AM (J30.1) Not Available [facility] 4 02:13:08 Closed fracture of nasal bones 65846923 Active 2022 Fracture of nasal bones, initial encounter for closed fracture; Note: Date Diagnosed : 07/21/2022 10:06 AM (S02.2XXA ) Not Available [facility] 4 02:14:15 Impacted cerumen of bilateral ears 47683442419 89655 Active 2023 TATIANA DOLAN PA-C 100 [facility], [place], [address] , [facility] - [facility] 4 14:04:01 Nasal congestio n 18738901 Active 2023 TATIANA DOLAN [facility]-C 100 [facility] [place], [place], [address] , [facility] - [facility] 4 14:05:26 Allergic rhinitis 34986465 Active 2023 TATIANA DOLAN PA-C 100 [facility] [place] [address], [facility] [place], [address] , [facility] - [facility] [place] 4 14:05:34 Seasonal allergic rhinitis 263225904 Active 2023 KIMBERLEE MARIE 100 [facility],[place] [address], [facility] [place], [address] , [facility] - [facility] [place] 5 11:27:13 [facility] rhinitis 15348938222 1 Active 2023 TATIANA DOLAN PA-C 100 [facility],[place] [address], [facility] [place], [address] , [facility] - [facility] [place] 4 14:05:34 Abnormal auditory perceptio n 84109552 Active 2024 JEAN CLAUDE RENTERIA 100 [facility],[place] [address], [facility] [place], [address] , [facility] [place] 5 11:50:31 Hypertrop hy of nasal turbinate s 93844932 Active 2024 KIMBERLEE MARIE 100 [facility],[place] [address], [facility] [place], [address] , [facility] - [facility] [place] 5 11:27:26 Problem Notes None recorded. Procedures Surgical History Date Name Laterality Status Provider Name and Address Organization Details Recorded Time 12/23/19 25 JMSNasal/Sinus Endoscopy completed KIMBERLEE MARIE 100 [facility],[place] [address], [place], [address], [facility] - [facility] [place] 12/22/2024 11:26:34 05/29/19 25 Air & Speech Audio with Tymps - 52785, 17146 & 05152 completed JEAN CLAUDE RENTERIA 100 [facility],[place] [address], [place], [address], [facility] - [facility] [place] 05/29/2024 11:49:44 01/03/20 24 Allergy Testing-Full completed ANA LILIA STEPHEN [address], [address], [facility] 01/03/2024 11:15:19 12/27/19 24 Allergy Testing Modified- Quantitative Testing (MQT) Only completed ANA LILIA STEPHEN [address], [address], [facility] 12/27/2023 15:09:31 Imaging Results None recorded. Procedure Notes None recorded. Medical Equipment None Reported. Allergies Allergen ID Allergen Name Allergen Category Reaction Reaction Severity Criticality Documentation Date Start Date Code Code System Note Provider Name and Address Organization Details Recorded Time 53360 penicilli n V potassium medicatio n other Not available Not available 08/24/2023 5 RxNorm React ion: unkno wn, unspe cifie d;; Not Available [facility] 4 00:50:23 Medications Name Sig Start Date [...] EAR(S) 4 TIMES DAILY FOR 7 DAYS 12/22 completed Not Available Not Available Not Available clonidine HCl 0.1 mg tablet TAKE 1 TABLET BY MOUTH EVERYDAY AT BEDTIME 12/26 completed Not Available Not Available Not Available prednison e 10 mg tablet 12/26 completed Medicati on ID: [id number] D uration Value: 10 Brand Name: predniso [...] 1 TABLET DAILY FOR 4 DAYS DIRECTED 12/22 completed Not Available Not Available Not Available sucralfat e 100 mg/mL oral suspensio n SWISH 10 ML IN MOUTH AND SWALLOW, USE AFTER FOOD/DRI NK TWICE A DAY active Not Available Not Available No t Available prednison e 20 mg tablet TAKE 1 TABLET BY MOUTH DAILY active Not Available Not Available No t Available omeprazol e 40 mg capsule,d elayed release TAKE 1 CAPSULE BY MOUTH EVERY DAY active Not Available Not Available No t Available acetamino phen 500 mg tablet TAKE 2 TABLETS BY MOUTH EVERY 6 HOURS NEEDED FOR PAIN OR FEVER active Not Available Not Available No t Available hyoscyami ne sulfate 0.125 mg tablet TAKE 1 TABLET BY MOUTH FOUR TIMES A DAY NEEDED FOR DYSPEPSI A 12/22 completed Not Available Not Available Not Available hydroxyzi ne HCl 25 mg tablet TAKE 1 TABLET BY MOUTH EVERY DAY AND TAKE 1-2 BEFORE BEDTIME NEEDED NEEDED active Not Available Not Available No t Available gabapenti n 100 mg capsule TAKE 1-3 CAPS BY MOUTH AT BEDTIME 12/22 completed Not Available Not Available Not Available azelastin e 137 mcg (0.1 %) nasal spray SPRAY 2 SPRAYS INTO EACH NOSTRIL TWICE A DAY active Not Available Not Available No t Available epinephri ne 0.3 mg/0.3 mL injection , auto-inje ctor Take 1 auto by injectio n route for 1 day, for anaphyla xis. active Not Available Not Available No t Available ibuprofen 600 mg tablet TAKE 1 TABLET BY MOUTH EVERY 8 HOURS NEEDED FOR PAIN 12/22 completed Not Available Not Available Not Available fluticaso ne propionat e 50 mcg/actua tion nasal spray,verito pension PUT 1 SPRAY INTRANAS ALLY EVERY 12 HOURS ADMINIST ER INTO EACH NOSTRIL *NC OTC* 12/22 completed Not Available Not Available Not Available naproxen 500 mg tablet TAKE 1 TABLET BY MOUTH 2 TIMES A DAY NEEDED FOR PAIN FOR 10 DAYS 12/26 completed Not Available Not Available Not Available Ventolin HFA 90 mcg/actua tion aerosol inhaler INHALE 2 PUFFS EVERY 4 TO 6 HOURS NEEDED FOR SHORTNES S OF BREATH OR FOR WHEEZE active Not Available Not Available No t Available escitalop alfred 10 mg tablet TAKE 1 TABLET BY MOUTH EVERY DAY IN THE MORNING 12/22 completed Not Available Not Available Not Available Zackery Cabello Crohn's-U lc Colitis-H id Sup Starter 40 mg/0.8 mL subcut kit 11/15 completed Medicati on ID: [id number] D uration Value: 28 Reason: () Brand [...] 4 TIMES PER DAY FOR 10 DAYS 12/22 completed Not Available Not Available Not Available Gavilax 17 gram/dose oral powder MIX 17G (1 CAPFUL) IN 8 OUNCES OF LIQUID AND DRINK TWICE DAILY 12/26 completed Not Available Not Available Not Available sodium,po tassium,m ag sulfates 17.5 gram-3.13 gram-1.6 gram oral soln DILUTE DRINK 1/2 AT 6-8 PM AND HALF AT 11 PM- 1AM 12/22 completed Not Available Not Available Not Available clonidine HCl ER 0.1 mg tablet,ex tended release,1 2 hr TAKE 1 TABLET BY MOUTH EVERYDAY AT BEDTIME 12/22 completed Not Available Not Available Not Available Breo Ellipta 100 mcg-25 mcg/dose powder for inhalatio n INHALE 1 PUFF DAILY active Not Available Not Available No t Available Entyvio 300 mg intraveno us solution 12/26 completed Not Available Not Available Not Available lisdexamf etamine 10 mg capsule TAKE 1 CAPSULE BY MOUTH EVERY MORNING 12/26 completed Not Available Not Available Not Available bupropion HCl 150 mg tablet,12 hr sustained -release( smoking deterrent ) TAKE 1 TABLET BY MOUTH EVERY MORNING 12/22 completed Not Available Not Available Not Available Vitals Date Recorded Body height Body mass index (BMI) Body weight Provider Name and Address Organization Details Last Updated DateTime 05/29/2024 190.5 cm 29.4 kg/m2 394100.21 g Dianna Cantu [place] - [facility] 05/29/2024 11:17:54 Date Recorded Body height Body mass index (BMI) Body weight Provider Name and Address Organization Details Last Updated DateTime 12/06/2023 190.5 cm 31.2 kg/m2 717287.09 g Violet Mccann [facility] 12/06/2023 13:48:51 Date Recorded Body height Body mass index (BMI) Body weight Oxygen saturation Oxygen saturation in Arterial blood by Pulse oximetry Heart rate Systolic And Diastolic Provider Name and Address Organization Details Last Updated DateTime 190.5 cm 30 kg/m2 253928. 17 g 99 % 99 % 63 /min 121/83 mm[Hg] ANA LILIA STEPHEN [address] [place] [address], [address], [facility] 14:29:13 Social History None recorded. Functional Status None recorded. Mental Status None recorded. Family History Nothing Reported. Medical History Condition Response GERD/Reflux Y Past Encounters Encounter ID Performer Location Encounter Start Date Encounter Closed Date Diagnosis/Indication Diagnosis SNOMED-CT Code Diagnosis ICD10 Code Diagnosis IMO Codes Diagnosis Note [id number] TATIANA DOLAN PA-C [facility] [address] [address] 12/06/2023 13:31:09 12/06/2023 13:55:51 Nasal congestion 68937520 R09.81 [id number] ANA LILIA STEPHEN Allergy [address] [place] [address] [place] [address] 12/27/2023 14:12:56 12/27/2023 15:26:25 Allergic rhinitis 60273373 J30.9 [id number] ANA LILIA STEPHEN Allergy 100 [facility] 100 [place] [address] 01/03/2024 10:16:10 01/03/2024 10:17:15 Allergic rhinitis 81196771 J30.9 [id number] TATIANA DOLAN PA-C [facility] 100 [place] [address] 05/29/2024 11:04:38 05/29/2024 12:04:22 Nasal congestion 04436755 R09.81 Allergic rhinitis 975096 04 J30.89 Abnormal a uditory perception 99722161 H93.299 Right Ear:Normal hearing with excellent speech discrimina tion.Type A tympanogra m.Left Ear:Normal hearing with excellent speech discrimina tion.Type A tympanogra m. [id number] ARNEL CISNEROS MD [facility] [address] [address] 12/22/2024 10:12:22 01/01/2025 20:05:15 Seasonal allergic rhinitis 913580619 J30.89 96235441 Hypertroph y of nasal turbinates 81531359 J34.3 93597024 Health Concerns Section Related Observation LastModified by Organization Detai ls LastModified Time None Recorded Concern Status LastModified by Organization Details LastModified Time None Recorded Advance Directives Directive None Recorded Payers Insurance Date Sequence Insurance Name Policy Number Policy Enamorado Covered Member ID Enamorado Member ID Guarantor Name 01/05/2025 1 [facility] [id number] Tyler Cohenos [id number] Tlyer Flores Mccann 05/26/2024 2 [facility] Tyler Cohenos [id number] Tyler Mccann Notes Date Note Type Note Provider Name and Address Organization Details Recorded Time 12/06/2023 text/html ROS as noted in the HPI 28-year-old male presents for evaluation of nasal [...] history of sinus infections. CARO DUNCAN MD [address] [place] [address], [address], [facility] - [facility] 12/07/2023 16:32:07 05/29/2024 text/html ROS as noted in the HPI 28-year-old male presents for review of allergy testing and CT sinus. He has been using Flonase daily without improvement. CT sinus was also ordered. He continues to have nasal congestion, sneezing, rhinorrhea, decreased sense of smell, and facial pressure. No history of recurrent sinusitis. Also notes decreased hearing bilaterally for a few years. ARNEL BUNN MD 100 [facility],[address], [address], [facility] 05/29/2024 17:08:31 12/22/2024 text/html ROS as noted in the [facility] 29-year-old male presents for discussion of Dupixent for his allergies. Patient had allergy skin testing 01/03/2024 that demonstrated moderate to severe reactions to trees, weeds, molds, grasses, dust mite, cat, and dog. CT sinus 01/31/2024 demonstrated small bilateral mucous retention cyst in the maxillary sinus and mild left sided septal deviation, but no evidence of sinusitis. He was recommended immunotherapy at his last visit with Tatiana, but the patient never started it due to conflicts with his work schedule. His primary allergy symptoms include nasal congestion and sneezing. He also has a history of eczema and is being worked up for asthma. He reports intermittent wheezing that can occur at rest. He had PFTs done at [facility] within the month that showed partial reversible obstruction concerning for mild asthma, which is well managed with inhaler therapy. He is scheduled to meet with pulmonology on 01/09. He had routine bloodwork with his PCP on 12/18 that showed WBC of 6.6 and eosinophils of 1.7%. For the last month he has been taking Zyrtec, Flonase, and azelastine daily with some improvement in his nasal congestion. Patient believes he can visualize nasal polyps in his nose, therefore he would like to consider Dupixent. ARNEL BUNN MD 100 [facility],[address], [address], [facility] 12/22/2024 12:29:49
== END 2025-01-09 16:24 | disposition home or self-care (01) ==
LOC: HO.HPSW 15:18
PROVIDERS: PCP Nurse Practitioner Family; Visit Provider Nurse Practitioner Family
DX: J45.30 Mild persistent asthma, uncomplicated (principal); Z91.09 Other allergy status, other than to drugs and biological substances
CPT/HCPCS: 99214

== ENCOUNTER → 2025-01-09 15:17 | Outpatient (BNVA) | payer OTHER, SELFPAY | PROVIDERS: PCP Nurse Practitioner Family; Visit Provider Nurse Practitioner Family | DX: J45.30 Mild persistent asthma, uncomplicated (principal); R06.02 Shortness of breath; Z91.09 Other allergy status, other than to drugs and biological substances | CPT/HCPCS: 99212 ==

== ENCOUNTER 2025-02-03 11:47 | Outpatient (AMB) | payer OTHER, SELFPAY ==
[2025-02-03 11:52] VITALS: BP 120/78; PULSE 81; TEMP 36.9; O2SAT 98
--- NOTE | 2025-02-03 11:52 | MHC.OFFWIV ---
Intake Vital Signs 02/03/25 11:52 Height 6 ft 3 in BMI Reason not done Patient refused/unable BP 120/78 Blood Pressure Location Lt brachial Position Sitting Pulse 81 Pulse Source Pulse Oximeter Temp 98.5 F Temp Source Oral Pulse Oximetry (%) 98 Intake Visit Reasons: EP Asthma Patient Tobacco Use Status: Never used Tobacco Allergies penicillin V Allergy (Intermediate, Verified 02/03/25 12:10) rash Medication List - Last Reconciled 02/03/25 by BHANU Potts- acetaminophen (Tylenol Extra Strength) 1,000 mg (2 x 500 mg) PO Q6H PRN albuterol sulfate 90 mcg/actuation 2 puffs inhalation Q4-6H PRN azelastine intranasal buspirone 5 mg PO BID fluticasone furoate-vilanterol 200-25 mcg/dose (Breo Ellipta) 1 inh inhalation DAILY hydroxyzine HCl 25 mg orally Take one tablet daily if needed for anxiety and take 1-2 before bedtime as needed PRN; 30 days lisdexamfetamine (Vyvanse) 30 mg PO QAM 30 days magnesium glycinate 87.5 tabs PO QID magnesium L-threonate mg PO melatonin 3 mg PO BEDTIME PRN miscellaneous medical supply (Blood Pressure Cuff) blood pressure checks daily and as needed large cuff please montelukast (Singulair) 10 mg PO BEDTIME [id number] 3.5-10,000-1 mg/mL-unit/mL-% 4 drps otic (ears) Q8H PRN 10 days omeprazole 40 mg PO DAILY 90 days oxymetazoline 0.05% (Afrin (oxymetazoline)) 2 sprays intranasal Q12H PRN 3 days [Pentadeca Arginate (Pda) 500 mcg PO DAILY] sucralfate 10 mL PO BID testosterone cypionate 140 mg IM QWEEK umeclidinium 62.5 mcg/actuation (Incruse Ellipta) 1 inh inhalation DAILY Do you need a note to return to daycare/school/sports/work: Yes HPI HPI Comments History of Present Illness Details History of Present Illness The patient is a 29-year-old male presenting with an asthma exacerbation. Asthma exacerbation: - Symptoms: shortness of breath, nighttime severity, sleep disturbance, headaches, fatigue. - Last prednisone use: two days ago, for a total of one week after he contacted his Pulm. I have reviewed this notes as part of the work up. - Delayed use of Incruse inhaler due to pharmacy delays. - Reports consistent difficulty with breathing. Review of Systems - Respiratory: Reports shortness of breath, especially at night. - General: Reports fatigue, feeling unrested in the morning. - Neurological: Reports headaches. - Sleep: Reports disturbed sleep and unrested feeling upon waking. Physical Exam General: Well developed, well nourished, in no acute distress. Appears stated age. Head: Normocephalic, atraumatic. Eyes: Pupils are equal, round and reactive to light and accommodation. Conjunctivae are clear. Lungs: Clear to auscultation bilaterally. No rales, rhonchi or wheeze noted. Good air flow in all villatoro. Heart: Regular rate and rhythm. No murmurs, click, rubs or gallops are noted. Psych: Mood and affect appropriate Discussion Notes Today, I discussed with the patient the management of their asthma exacerbation, emphasizing the importance of continuous use of prescribed inhalers, including Breo and the [id number] Incruse. I provided reassurance regarding the nature of Incruse and emphasized using it alongside Breo, explaining the different mechanisms through which these medications work. I prescribed a short course of prednisone for three more days, highlighted the importance of verifying with the pharmacy regarding the availability of Incruse, and stressed the need to report any issues promptly. I articulated the purpose of each medication in asthma management, ensuring patient understanding and addressing concerns about potential side effects or drug interactions. Follow-up on the medication acquisition was advised, and the patient is instructed to return for further evaluation if symptoms persist. I agreed to provide a work note as requested. Patient was given time to ask questions. All questions were answered to their satisfaction. Assessment and Plan 1. Asthma exacerbation - Continue Breo. Add Incruse upon receipt EMERY - Prednisone for three days. - Expect improvement within 2-3 days. - Pharmacy follow-up emphasized. - Cont care w/ Pulm. Seek care if no improvement or worsening. Avoid triggers. Patient Instructions - Continue using your Breo regularly. - Start using Incruse inhaler once it is ready at the pharmacy. - Take prednisone as prescribed for the next three days. - Go to the pharmacy today and make sure Incruse is ready. - Call if you have any issues getting your medication. - Keep track of your symptoms and let us know if things don't improve. Consent Patient was informed and verbally consented to the use of an ambient scribe for clinic note documentation during this visit. 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 Mother Hypertension Maternal Grandfather Diabetes Stroke Other Anemia Social History Household Members: Friend(s) Housing: Apartment Are you a primary morning caregiver to a significant other at home: No Do you presently have visiting nurse or other home services: No Alcohol intake: never Patient Tobacco Use Status: Never used Tobacco e-Cigarette/Vaping Use: Never Used Second Hand Smoke Exposure: No service: No Current occupational status: employed Current occupation: [employer] Cognitive needs: No Hearing needs: No Vision needs: No Physical Exam Vital Signs: Last Vital Signs Temp 98.5 F 02/03/25 11:52 Pulse 81 02/03/25 11:52 BP 120/78 02/03/25 11:52 Pulse Ox 98 02/03/25 11:52 Assessment & Plan Assessment & Plan (1) Asthma: Code(s): J45.909 - Unspecified asthma, uncomplicated Qualifiers: Asthma severity: mild Asthma persistence: persistent Asthma complication type: uncomplicated Qualified Code(s): J45.30 - Mild persistent asthma, uncomplicated (2) SOB (shortness of breath): Code(s): R06.02 - Shortness of breath Plan . Medications: New prednisone 5 mg PO DAILY 3 tabs 0RF Coding Level of Care Code Est Pt Level 4 (56905) Diagnoses Mild persistent asthma without complication J45.30 Asthma severity: mild Asthma persistence: persistent Asthma complication type: uncomplicated SOB (shortness of breath) R06.02
== END 2025-02-03 12:19 | disposition home or self-care (01) ==
PROVIDERS: PCP Nurse Practitioner Family; Visit Provider Nurse Practitioner Family
DX: J45.30 Mild persistent asthma, uncomplicated (principal); R06.02 Shortness of breath

== ENCOUNTER → 2025-02-03 11:47 | Outpatient (BNVA) | payer OTHER, SELFPAY | PROVIDERS: PCP Nurse Practitioner Family; Visit Provider Nurse Practitioner Family | DX: J45.31 Mild persistent asthma with (acute) exacerbation (principal); R06.02 Shortness of breath | CPT/HCPCS: 99212 ==

== ENCOUNTER 2025-02-05 12:48 | Outpatient (AMB) | payer OTHER, SELFPAY ==
--- NOTE | 2025-02-05 12:57 | MHC.OFFVIS ---
Vital Signs 02/05/25 13:03 Height 6 ft 3 in Weight 264 lb 8.875 oz BMI 33.1 BP 120/78 Blood Pressure Location Lt brachial Position Sitting Pulse 71 Pulse Source Pulse Oximeter Pulse Oximetry (%) 99 Oxygen Delivery Method Room Air Intake Visit Reasons: Asthma Allergies penicillin V Allergy (Intermediate, Verified 02/05/25 13:06) rash HPI HPI Asthma: Details: Tyler is a pleasant 29-year-old male, never smoker, with underlying asthma, HTN and Crohn's disease. The patient reports a history of asthma diagnosed in childhood with symptoms resolving up until recently. He underwent PFT which revealed poorly controlled asthma and had Breo increased to 200 mcg. Unfortunately he continues to report night time awakenings that have been more prevalent over the last few weeks with associated dry cough. Denies wheezing or chest tightness. Incruse was sent however not covered by insurance and Spiriva sent in its place, he has yet to start this. He also could not tolerate Singulair, noting increased depression and has since discontinued. He has been under the care of ENT, starting allergen immunotherapy and has received three weekly injections thus far. He continues to use albuterol MDI twice daily due to dyspnea. He reports dyspnea is not dependent on activity nor location. He has also been using Flonase and zyrtec with moderate effect. Since the last visit he has received prednisone on two separate occasions for asthma exacerbations. 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 Mother Hypertension Maternal Grandfather Diabetes Stroke Other Anemia Social History Household Members: Friend(s) Housing: Apartment Are you a primary career development facilitator to a significant other at home: No Do you presently have visiting nurse or other home services: No Alcohol intake: never Patient Tobacco Use Status: Never used Tobacco e-Cigarette/Vaping Use: Never Used Second Hand Smoke Exposure: No service: No Current occupational status: employed Current occupation: [employer] Cognitive needs: No Hearing needs: No Vision needs: No Review of Systems Const Denies chills, Denies excessive sweating, Denies fever(s), Denies headache(s) and Denies night sweats Eyes Denies dry eyes, Denies irritation and Denies itchy eyes ENT Reports Normal hearing present, Denies headache(s), Denies nasal discharge, Denies post nasal drip and Denies sore throat Card Denies chest pain, Denies chest pain at rest, Denies chest pain with activity, Denies claudication, Denies leg edema, Denies orthopnea and Denies paroxysmal nocturnal dyspnea Resp Denies chest congestion, Denies excessive phlegm production, Denies pain on inspiration, Denies pain with cough, Denies stridor and Denies wheezing Musc Denies myalgias Neuro Reports Normal hearing present and Denies headache(s) Endo Denies excessive sweating Niall/Lymph Denies lymphadenopathy Aller/Immun Denies itchy eyes, Denies seasonal rhinorrhea and Denies wheezing Physical Exam Vital Signs: Last Vital Signs Pulse 71 02/05/25 13:03 BP 120/78 02/05/25 13:03 Pulse Ox 99 02/05/25 13:03 Oxygen Delivery Method Room Air 02/05/25 13:03 BMI result Body Mass Index 33.1 Const General: cooperative, healthy appearing, comfortable, no acute distress, well developed and alert Nutritional Appearance: obese Orientation/consciousness: patient oriented x3 Limitations: no limitations HEENT Head: Yes normal to inspection, Yes normocephalic and Yes atraumatic Ears: hearing grossly normal bilaterally and external ears normal Eyes General: appearance normal, both eyes and all related structures Eyelids: Yes eyelids normal Sclerae: sclerae normal EOM: EOMs intact bilaterally Neck Neck: Yes normal visual inspection and Yes no lymphadenopathy Lymphatic: no lymphadenopathy noted Chest Chest palpation & inspection: normal inspection of the chest Resp Effort & Inspection: normal respiratory effort, able to speak in complete sentences, no audible wheezes, no cough, no stridor, not tachypneic, no tripod positioning and no use of accessory muscles Auscultation: clear to auscultation bilaterally Cardio Jugular venous distension: no JVD Rate: regular rate Rhythm: regular rhythm Skin Other: warm, dry General skin exam: no rashes or lesions noted Neuro General: patient oriented x3 Cranial nerves: Yes Normal hearing present Cognition (Neuro): normal cognition Gait exam (Neuro): Normal gait present Extrem General: Yes normal to inspection, Yes capillary refill normal, Yes no clubbing, cyanosis or edema and Yes no pedal edema Psych Appearance: grossly normal and well kempt Speech and movement: Normal speech and movement present and Clear speech present Affect: normal affect Attitude: cooperative Thought process: Normal thought process present Thought content: Normal thought content present Insight: Good insight present (Psych) Judgement: Good judgement present (Psych) Assessment & Plan Assessment & Plan (1) Asthma: Code(s): J45.909 - Unspecified asthma, uncomplicated Category: Medical Qualifiers: Asthma severity: moderate Asthma persistence: persistent Asthma complication type: uncomplicated Qualified Code(s): J45.40 - Moderate persistent asthma, uncomplicated (2) Environmental allergies: Code(s): Z91.09 - Other allergy status, other than to drugs and biological substances Category: Medical Plan Advised patient to start Spiriva in addition to Breo and albuterol MDI. Discussed the possibility of allergen immunotherapy contributing to increased asthma symptoms. Recommended patient hold off on SCIT until asthma is better controlled. He has an appt tomorrow for injections, encouraged patient to call today to discuss recommendations and will send office note from today to ENT. He is aware to call if symptoms do not improve or seek emergent care if symptoms worsen. All questions were answered and patient is in agreement of plan. Will follow up for regularly scheduled appointment or sooner if needed. Medications: Discontinued montelukast (Singulair) Discontinued Reason: Patient Completed Course 10 mg PO BEDTIME 30 tabs 3RF umeclidinium 62.5 mcg/actuation (Incruse Ellipta) Discontinued Reason: Insurance Denied 1 inh inhalation DAILY 30 ea 3RF Coding Level of Care Code Est Pt Level 4 (33825) Diagnoses Moderate persistent asthma without complication J45.40 Asthma severity: moderate Asthma persistence: persistent Asthma complication type: uncomplicated Environmental allergies Z91.09
[2025-02-05 13:03] VITALS: BP 120/78; PULSE 71; O2SAT 99; BMI 33.1
--- OUTSIDE RECORDS SUMMARY | 2025-02-05 16:14 | XMS_ITS | Data Portability ---
Author Organization [place] - [facility], Allergy Address [address] [address] Care Team Providers Care Gut Snatcher Name Role Phone YARIEL PANDEY Primary Care [...] discussed the risk of anaphylaxis with this. [email or web address] Not available 05/29/2024 12:35:44 12/22/2024 12/22/2024 29-year-old [...] he will call/message us when it expires. [email or web address] Not available 12/22/2024 11:46:58 01/15/2025 01/15/2025 Visit With: Luzmaria Bardales Use of Antihistamines: No If yes: Vial Test Yes Change in medications: No If yes Increase in asthma symptoms If yes, inhaler use: Reaction to last injections: If yes: Allergy Symptoms: Other: Missed: Dose Aware of Vial Test Aware: Notes: [email or web address] Not available 01/15/2025 15:47:05 01/23/2025 01/23/2025 Visit With: Chico Corbin RN Use of Antihistamines: No If yes: Vial Test Change in medications: No If yes Increase in asthma symptoms No If yes, inhaler use: Reaction to last injections: No If yes: Allergy Symptoms: Other: Missed: Dose Aware of Vial Test Aware: Notes:using breo daily and rescue inhaler 2x a day. Advised to call PCP and make aware how often using rescue inhaler. [email or web address] Not available 01/23/2025 10:34:48 01/30/2025 01/30/2025 Visit With: Luzmaria Bardales Use of Antihistamines: No If yes: Vial Test Change in medications: No If yes Increase in asthma symptoms No If yes, inhaler use: Reaction to last injections: No If yes: Allergy Symptoms: Other: Missed: Dose Aware of Vial Test Aware: Notes: Not available 01/30/2025 10:08:22 Plan of Treatment Reminders Order Date Submit Date Provider Last Modified By Organization Details Last Modified Time Details Appointments Establish ed- Allergy f-up 6mon 2025 10:30A M ARNEL CUNNINGHAM MD Not available Not available Not available Lab None recorded. Referral None recorded. Procedures allergy testing, skin prick (PROC) 2024 025 [email or web address] Not available 01/19/2025 13:43:25 intraderm al allergy skin testing (PROC) 2024 025 [email or web address] Not available 01/19/2025 13:43:31 pulmonary function test procedure (PROC) 2024 025 [email or web address] Not available 01/19/2025 13:43:39 pulse oximetry (PROC) 2024 025 [email or web address] Not available 01/19/2025 13:43:44 allergen immunothe rapy; multiple injection s (PROC) 2024 025 [email or web address] Not available 06/06/2024 12:50:31 Surgeries None recorded. Imaging None recorded. Medication Orders epinephri ne 0.3 mg/0.3 mL injection , auto-inje ctor 2024 025 [facility]/Pharmacy #[id number], [address] [place], [address], 05/29/2024 12:32:14 azelastin e 137 mcg (0.1 %) nasal spray 2024 025 [facility]/Pharmacy #[id number], [address] [place], [address], 05/29/2024 12:34:07 Patient TargetsNo targets recorded. Patient Instructions Encounter Date Encounter Id Patient Instructions Last Modified By Organization Details Last Modified Time 01/15/2025 [id number] allergy shots: care instructions [email or web address] Not available 01/15/2025 15:47:33 Reason for Referral None Reported. Results Created [...] Recorded Time Impacted cerumen in right ear [id number] 96787 Active 2016 Impacted cerumen, right ear; Note: Date Diagnosed : 04/29/2016 4:34 PM (H61.21) Not Available [facility] 4 02:13:30 Allergic rhinitis caused by pollen 00710815 Active 2019 Allergy NOS due to pollen; Note: Date Diagnosed : 11/16/2019 11:51 AM (J30.1) Not Available [facility] 4 02:13:08 Closed fracture of nasal bones 43739424 Active 2022 Fracture of nasal bones, initial encounter for closed fracture; Note: Date Diagnosed : 07/21/2022 10:06 AM (S02.2XXA ) Not Available [facility] 4 02:14:15 Impacted cerumen of bilateral ears 38918335011 58684 Active 2023 TATIANA DOLAN PA-C [address] [place] [address], [place], [address] , [facility] - [facility] [place] 4 14:04:01 Nasal congestio n 23009270 Active 2023 TATIANA DOLAN PA-C 100 [facility],[place] [address], [place], [place], [address] , [facility] - [facility] [place] 4 14:05:26 Allergic rhinitis 92946465 Active 2023 TATIANA DOLAN PA-C 100 [facility],[place] [address], [place], [place], [address] , [facility] - [facility] [place] 4 14:05:34 Seasonal allergic rhinitis 828929320 Active 2023 KIMBERLEE MARIE 100 [facility],[place] [address], [place], [place], [address] , [facility] - [facility] [place] 5 11:27:13 Non-aller gic rhinitis 92031634711 1 Active 2023 TATIANA DOLAN PA-C 100 [facility],[place] [address], [place], [place], [address] , [facility] - [facility] [place] 4 14:05:34 Abnormal auditory perceptio n 44797147 Active 2024 JEAN CLAUDE RENTERIA 100 [facility],[place] [address], [place], [place], [address] , [facility] - [facility] [place] 5 11:50:31 Hypertrop hy of nasal turbinate s 41791797 Active 2024 KIMBERLEE MARIE 100 [facility],[place] [address], [place], [place], [address] , [facility] - [facility] [place] 5 11:27:26 Perennial allergic rhinitis 178622512 Active 2024 CHICO CORBIN RN 100 [facility],[place] [address], [place], [place], [address] , [facility] - [facility] [place] 5 10:33:32 Problem Notes None recorded. Procedures Surgical History Date Name Laterality Status Provider Name and Address Organization Details Recorded Time 01/31/20 25 Allergy Immunotherapy Injections completed Ashkan Casa [address] [facility] [address],[place] [facility], [place], [address], [facility] - [facility] 01/30/2025 10:08:12 01/24/20 25 Allergy Immunotherapy Injections completed CHICO CORBIN RN [address] [facility] [place] [facility], [place], [address], [facility] - [facility] 01/23/2025 10:33:55 01/16/20 25 Allergy Immunotherapy Injections completed ANA LILIA STEPHEN [address] [facility] [address],[place] [facility], [place], [address], [facility] - [facility] 01/15/2025 15:46:57 12/23/19 25 JMSNasal/Sinus Endoscopy completed KIMBERLEE MARIE [address] [facility] [address],[place] [address], [place], [address], [facility] 12/22/2024 11:26:34 05/29/19 25 Air & Speech Audio with Tymps - 09987, 83449 & 92383 completed JEAN CLAUDE RENTERIA [address] [facility] [place] [address], [place], [address], [facility] - [facility] 05/29/2024 11:49:44 01/03/20 24 Allergy Testing-Full completed ANA LILIA STEPHEN [address] [facility] [place] [facility], [place], [address], [facility] 01/03/2024 11:15:19 12/27/19 24 Allergy Testing Modified- Quantitative Testing (MQT) Only completed ANA LILIA STEPHEN 100 [facility],[place] [address], [place], [address], [facility] 12/27/2023 15:09:31 Imaging Results None recorded. Procedure Notes None recorded. Medical Equipment None Reported. Allergies Allergen ID Allergen Name Allergen Category Reaction Reaction Severity Criticality Documentation Date Start Date Code Code System Note Provider Name and Address Organization Details Recorded Time 25828 penicilli n V potassium medicatio n other Not available Not available 08/24/2023 5 RxNorm React ion: unkno wn, unspe cifie d;; Not Available [facility] 4 00:50:23 Medications Name Sig Start Date Stop Date Status Note LastModified by Organization Details LastModified Time buspirone 5 mg tablet TAKE 1 TABLET BY MOUTH TWICE A DAY 01/15 completed Not Available Not Available Not Available bupropion HCl SR 150 mg tablet,12 [...] mg tablet 12/26 completed Medicati on ID: [id number] D uration Value: 10 Brand Name: predniso [...] 6 HOURS NEEDED FOR PAIN OR FEVER 01/15 completed Not Available Not Available Not Available hyoscyami ne sulfate 0.125 mg tablet [...] completed Not Available Not Available Not Available Humira Pen Crohn's-U lc Colitis-H id Sup Starter 40 mg/0.8 mL subcut kit 11/15 completed Medicati on ID: [id number] D uration Value: 28 Reason: () Brand [...] Updated DateTime 05/29/2024 190.5 cm 29.4 kg/m2 412924.21 g Dianna Cantu [facility] 05/29/2024 11:17:54 Date Recorded Body height Heart rate Systolic And Diastolic Provider Name and Address Organization Details Last Updated DateTime 01/15/2025 190.5 cm 77 /min 138/91 mm[Hg] LUZMARIA BARDALES , [facility] 100 [facility],[place] [address], [place], [address], [place] - [facility] 01/15/2025 15:23:07 Social History None recorded. Functional Status None recorded. Mental Status None recorded. Family History Nothing Reported. Medical History Condition Response GERD/Reflux Y Past Encounters Encounter ID Performer Location Encounter Start Date Encounter Closed Date Diagnosis/Indication Diagnosis SNOMED-CT Code Diagnosis ICD10 Code Diagnosis IMO Codes Diagnosis Note [id number] TATIANA DOLAN PA-C [facility] 100 [place] [address] 12/06/2023 13:31:09 12/06/2023 13:55:51 Nasal congestion 19222166 R09.81 [id number] LUZMARIA BARDALES [facility] Allergy [address] [place] [address], [place] [address] 12/27/2023 14:12:56 12/27/2023 15:26:25 Allergic rhinitis 44502184 J30.9 [id number] LUZMARIA BARDALES [facility] Allergy [address] [place] [address], [place] [address] 01/03/2024 10:16:10 01/03/2024 10:17:15 Allergic rhinitis 03366973 J30.9 [id number] JEFF NDIAYEC [facility] [address] [place] [address] 05/29/2024 11:04:38 05/29/2024 12:04:22 Nasal congestion 79820792 R09.81 Allergic rhinitis 773887 04 J30.89 Abnormal a uditory perception 48469303 H93.299 Right Ear:Normal hearing with excellent speech discrimina tion.Type A tympanogra m.Left Ear:Normal hearing with excellent speech discrimina tion.Type A tympanogra m. [id number] ARNEL CISNEROS MD [facility] [address] [place] [address] 12/22/2024 10:12:22 01/01/2025 20:05:15 Seasonal allergic rhinitis 500424917 J30.89 77861428 Hypertroph y of nasal turbinates 95061232 J34.3 [id number] LUZMARIA BARDALES [facility] Allergy [address] [place] [address], [place] [address] 01/15/2025 15:11:17 01/15/2025 15:47:40 Perennial allergic rhinitis 869095384 J30.89 [id number] CHICO CORBIN RN Allergy [address] [place] [address], [place] [address] 01/23/2025 08:52:47 01/23/2025 10:35:34 Perennial allergic rhinitis 848314856 J30.89 [id number] AMAYA SHARMA, ANA LILIA All[facility] 100 [facility], [address] [place] [address] 01/30/2025 08:54:34 01/30/2025 10:08:49 Perennial allergic rhinitis 175414170 J30.89 Health Concerns Section Related Observation LastModified by Organization Detai ls LastModified Time None Recorded Concern Status LastModified by Organization Details LastModified Time None Recorded Advance Directives Directive None Recorded Payers Insurance Date Sequence Insurance Name Policy Number Policy Enamorado Covered Member ID Enamorado Member ID Guarantor Name 01/30/2025 1 [facility] [place] [id number] Tyler Cohenos [id number] Tyler Cohenos 05/26/[address] [facility] (O) Tyler Cohenos [id number] Tyler Mccann Notes Date Note Type Note Provider Name and Address Organization Details Recorded Time 05/29/2024 text/html ROS as noted in the [...] a few years. ARNEL BUNN MD [address], [address], [facility] - [facility] 05/29/2024 17:08:31 12/22/2024 text/html ROS as noted in the HPI 29-year-old male presents for discussion of Dupixent [...] like to consider Dupixent. ARNEL BUNN MD [address] [place] [address], [address], [facility] - [facility] 12/22/2024 12:29:49
== END 2025-02-05 13:40 | disposition home or self-care (01) ==
LOC: HO.HPS 12:50
PROVIDERS: PCP Nurse Practitioner Family; Visit Provider Nurse Practitioner Family
DX: J45.40 Moderate persistent asthma, uncomplicated (principal); Z91.09 Other allergy status, other than to drugs and biological substances
CPT/HCPCS: 99214

== ENCOUNTER → 2025-02-05 12:48 | Outpatient (BNVA) | payer OTHER, SELFPAY | PROVIDERS: PCP Nurse Practitioner Family; Visit Provider Nurse Practitioner Family | DX: J45.40 Moderate persistent asthma, uncomplicated (principal); Z91.09 Other allergy status, other than to drugs and biological substances | CPT/HCPCS: 99212 ==

== ENCOUNTER 2025-02-12 | Outpatient (REF) | payer OTHER, SELFPAY ==
--- OUTSIDE RECORDS SUMMARY | 2025-03-06 12:31 | XMS_ITS | Continuity of Care Document ---
Author Organization [place] - [facility], [facility] Address [address] [place] [address] Care Team Providers Care Grades 1 Thru 6 Home Teacher Name Role Phone DANNIE, YARIEL Primary Care Provider [phone] GIOYVESYARIEL Primary Care Provider [phone] Assessment Encounter Date Assessment Date Assessment LastModified [...] he will call/message us when it expires. [email or web address] Not available 12/22/2024 11:46:58 Plan of Treatment [...] Recorded Time Impacted cerumen in right ear [id number] 63408 Active 2016 Impacted cerumen, right ear; Note: Date Diagnosed : 04/29/2016 4:34 PM (H61.21) Not Available [facility] 4 02:13:30 Allergic rhinitis caused by pollen 63135580 Active 2019 Allergy NOS due to pollen; Note: Date Diagnosed : 11/16/2019 11:51 AM (J30.1) Not Available [facility] 4 02:13:08 Closed fracture of nasal bones 87633221 Active 2022 Fracture of nasal bones, initial encounter for closed fracture; Note: Date Diagnosed : 07/21/2022 10:06 AM (S02.2XXA ) Not Available [facility] 4 02:14:15 Impacted cerumen of bilateral ears 31290725121 74643 Active 2023 TATIANA DOLAN PA-C [address], [place], [place], [address] , [facility] - [facility] [place] 4 14:04:01 Nasal congestio n 47258964 Active 2023 TATIANA DOLAN PA-C [address], [place], [address] , [facility] - [facility] [place] 4 14:05:26 Allergic rhinitis 30138880 Active 2023 TATIANA DOLAN PA-C [address], [place], [place], [address] , [facility] - [facility] [place] 4 14:05:34 Seasonal allergic rhinitis 166554071 Active 2023 KIMBERLEE MARIE [address] [facility] [address], [place], [place], [address] , [facility] - [facility] [place] 5 11:27:13 Non-aller gic rhinitis 50557131140 1 Active 2023 TATIANA DOLAN PA-C [address],[facility] 100, [place], [place], [address] , [facility] - [facility] [place] 4 14:05:34 Abnormal auditory perceptio n 68625686 Active 2024 JEAN CLAUDE RENTERIA [address], [place], [place], [address] , [facility] - [facility] [place] 5 11:50:31 Hypertrop hy of nasal turbinate s 19520280 Active 2024 KIMBERLEE MARIE [address], [place], [place], [address] , [facility] - [facility] [place] 5 11:27:26 Perennial allergic rhinitis 286449191 Active 2024 CHICO CORBIN RN [address], [place], [address] , [place] [facility] [place] 10:33:32 Problem Notes None recorded. Procedures Surgical History Date Name Laterality Status Provider Name and Address Organization Details Recorded Time 01/31/20 25 Allergy Immunotherapy Injections completed Ashkan Cormier 100 [facility],[address], [address], [facility] 01/30/2025 10:08:12 01/24/20 25 Allergy Immunotherapy Injections completed CHICO CORBIN RN 100 [facility],[address], [address], [facility] 01/23/2025 10:33:55 01/16/20 25 Allergy Immunotherapy Injections completed ANA LILIA STEPHEN [address] [place] [address],[address], [address], [facility] 01/15/2025 15:46:57 12/23/19 25 JMSNasal/Sinus Endoscopy completed KIMBERLEE MARIE 100 [facility],[address], [address], [facility] 12/22/2024 11:26:34 05/29/19 25 Air & Speech Audio with Tymps - 44005, 77553 & 57879 completed JEAN CLAUDE RENTERIA 100 [facility],[address], [address], [facility] 05/29/2024 11:49:44 01/03/20 24 Allergy Testing-Full completed ANA LILIA STEPHEN [address] [place] [address],[address], [address], [facility] 01/03/2024 11:15:19 12/27/19 24 Allergy Testing Modified- Quantitative Testing (MQT) Only completed ANA LILIA STEPHEN [address] [place] [address],[address], [address], [facility] 12/27/2023 15:09:31 Imaging Results None recorded. Procedure Notes None recorded. Medical Equipment None Reported. Allergies Allergen ID Allergen Name Allergen Category Reaction Reaction Severity Criticality Documentation Date Start Date Code Code System Note Provider Name and Address Organization Details Recorded Time 80095 penicilli n V potassium medicatio n other Not available Not available 08/24/202348046 5 RxNorm React ion: unkno wn, unspe cifie d;; Not Available [facility] 00:50:23 Medications Name Sig Start Date Stop [...] mg tablet 12/26 completed Medicati on ID: [id number] D uration Value: 10 Brand Name: predniso [...] subcut kit 11/15 completed Medicati on ID: [id number] D uration Value: 28 Reason: () Brand [...] ICD10 Code Diagnosis IMO Codes Diagnosis Note [id number] ARNEL CISNEROS MD [facility] of [address] [address] 12/22/2024 10:12:22 01/01/2025 20:05:15 Seasonal allergic rhinitis 237965478 J30.89 28274916 Hypertroph y of nasal turbinates 04732314 J34.3 [id number] Health Concerns Section Related Observation LastModified by Organization Gerson sierra LastModified Time None Recorded Concern Status LastModified by Organization Details LastModified Time None Recorded Payers Encounter Date Sequence Insurance Name Policy Number Policy Enamorado Covered Member ID Enamorado Member ID Guarantor Name 12/22/2024 1 [facility] (O) [id number] Tyler Mccann [id number] Tyler Mccann Notes Date Note Type [...] at rest. He had PFTs done at [facility] within the month that showed partial reversible [...] like to consider Dupixent. ARNEL BUNN MD [address] [place] [address], [address], [facility] - [facility] 12/22/2024 12:29:49
--- OUTSIDE RECORDS SUMMARY | 2025-03-06 12:31 | XMS_ITS | Continuity of Care Document ---
Author Organization [place] - [facility], Allergy Address [address] [address] Care Team Providers Care Hand Binder Cutter Name Role Phone DANNIEYARIEL Primary Care Provider GIOYVESYARIEL Primary Care Provider [phone] Assessment Encounter Date Assessment Date Assessment LastModified by Organization Details LastModified Time 01/15/2025 01/15/2025 Visit With: Luzmaria Waddell Use of Antihistamine s: No If yes: Vial Test Yes Change in medications: No If yes Increase in asthma symptoms If yes, inhaler use: Reaction to last injections: If yes: Allergy Symptoms: Other: Missed: Dose Aware of Vial Test Aware: Notes: [email or web address] Not available 01/15/2025 15:47:05 Plan of Treatment [...] By Organization Details Last Modified Time 01/15/2025 82058 allergy shots: care instructions [email or web address] Not available 01/15/2025 15:47:33 Reason for Referral None Reported. Problems Name Problem SNOMED Code Status Onset Date Resolution Date Notes Provider Name and Address Organization Details Recorded Time Impacted cerumen in right ear [id number] 25362 Active 2016 Impacted cerumen, right ear; Note: Date Diagnosed : 04/29/2016 4:34 PM (H61.21) Not Available [facility] 4 02:13:30 Allergic rhinitis caused by pollen 45821430 Active 2019 Allergy NOS due to pollen; Note: Date Diagnosed : 11/16/2019 11:51 AM (J30.1) Not Available [facility] 4 02:13:08 Closed fracture of nasal bones 05393601 Active 2022 Fracture of nasal bones, initial encounter for closed fracture; Note: Date Diagnosed : 07/21/2022 10:06 AM (S02.2XXA ) Not Available [facility] 4 02:14:15 Impacted cerumen of bilateral ears 78520250916 56494 Active 2023 TATIANA DOLAN PA-C [address] [facility], [place], [address] , [facility] - [facility] 4 14:04:01 Nasal congestio n 02504074 Active 2023 TATIANA DOLAN PA-C [address] [employer], [place], [address] , [facility] - [facility] [place] 4 14:05:26 Allergic rhinitis 75235916 Active 2023 TATIANA DOLAN PA-C [address] [place],[address] [facility], [place], [address] , [facility] - [facility] [place] 4 14:05:34 Seasonal allergic rhinitis 468775780 Active 2023 KIMBERLEE MARIE [address], [place], [address] , [facility] - [facility] [place] 5 11:27:13 Non-aller gic rhinitis 54230148493 1 Active 2023 TATIANA DOLAN PA-C [address], [place], [address] , [place] - [facility] [place] 4 14:05:34 Abnormal auditory perceptio n 63018329 Active 2024 JEAN CLAUDE RENTERIA 100 [facility],[place] [address], [facility] [place], [address] , [place] - [facility] [place] 5 11:50:31 Hypertrop hy of nasal turbinate s 26129015 Active 2024 KIMBERLEE MARIE 100 [facility],[place] [address], [facility] [place], [address] , [facility] - [facility] [place] 5 11:27:26 Perennial allergic rhinitis 671195684 Active 2024 CHICO CORBIN RN 100 [facility],[place] [address], [facility] [place], [address] , [place] - [facility] [place] 5 10:33:32 Problem Notes None recorded. Procedures Surgical History Date Name Laterality Status Provider Name and Address Organization Details Recorded Time 01/31/20 25 Allergy Immunotherapy Injections completed Ashkan Cormier 100 [facility],[address], [address], [place] - [facility] [place] 01/30/2025 10:08:12 01/24/20 25 Allergy Immunotherapy Injections completed CHICO CORBIN RN 100 [facility],[address], [address], [facility] - [facility] [place] 01/23/2025 10:33:55 01/16/20 25 Allergy Immunotherapy Injections completed ANA LILIA STEPHEN 100 [facility],[address], [address], [place] [facility] [place] 01/15/2025 15:46:57 12/23/19 25 JMSNasal/Sinus Endoscopy completed KIMBERLEE MARIE 100 [facility],[address], [address], [facility] - [facility] [place] 12/22/2024 11:26:34 05/29/19 25 Air & Speech Audio with Tymps - 97015, 04003 & 08321 completed JEAN CLAUDE RENTERIA 100 [facility],[address], [address], [facility] - [facility] 05/29/2024 11:49:44 01/03/20 24 Allergy Testing-Full completed ANA LILIA STEPHEN 100 [facility] 100, [place], [address], [facility] 01/03/2024 11:15:19 12/27/19 24 Allergy Testing Modified- Quantitative Testing (MQT) Only completed ANA LILIA STEPHEN 100 [facility] 100, [place], [address], [facility] 12/27/2023 15:09:31 Imaging Results None recorded. Procedure Notes None recorded. Medical Equipment None Reported. Allergies Allergen ID Allergen Name Allergen Category Reaction Reaction Severity Criticality Documentation Date Start Date Code Code System Note Provider Name and Address Organization Details Recorded Time 81071 penicilli n V potassium medicatio n other Not available Not available 08/24/2023 5 RxNorm React ion: unkno wn, unspe cifie d;; Not Available [facility] 00:50:23 Medications Name Sig Start Date Stop [...] mg tablet 12/26 completed Medicati on ID: [id number] D uration Value: 10 Brand Name: predniso [...] subcut kit 11/15 completed Medicati on ID: [id number] D uration Value: 28 Reason: () Brand [...] /min 138/91 mm[Hg] ANA LILIA STEPHEN 100 [facility],[address], [address], [place] - [facility] 01/15/2025 15:23:07 Social History None recorded. Functional Status None recorded. Mental Status None recorded. Family History Nothing Reported. Medical History Condition Response GERD/Reflux Y Past Encounters Encounter ID Performer Location Encounter Start Date Encounter Closed Date Diagnosis/Indication Diagnosis SNOMED-CT Code Diagnosis ICD10 Code Diagnosis IMO Codes Diagnosis Note [id number] ARNEL CISNEROS MD [facility] of [facility] [address] [place] [address] 12/22/2024 10:12:22 01/01/2025 20:05:15 Seasonal allergic rhinitis 229500098 J30.89 36357404 Hypertroph y of nasal turbinates 73926195 J34.3 [id number] ANA LILIA STEPHEN Allergy 100 [facility] [address] [place] [address] 01/15/2025 15:11:17 01/15/2025 15:47:40 Perennial allergic rhinitis 984346748 J30.89 Health Concerns Section Related Observation LastModified by Organization Detai ls LastModified Time None Recorded Concern Status LastModified by Organization Details LastModified Time None Recorded Payers Encounter Date Sequence Insurance Name Policy Number Policy Enamorado Covered Member ID Enamorado Member ID Guarantor Name 01/15/2025 1 [facility] (H[facility]) [id number] Tyler Mccann [id number] Tyler Mccann
--- OUTSIDE RECORDS SUMMARY | 2025-03-06 12:31 | XMS_ITS | Continuity of Care Document ---
Author Organization [place] - [facility], Allergy Address [address] [address] Care Team Providers Care Distribution Analyst Name Role Phone DANNIESALINAS KIMDULCE Primary Care Provider [phone] GIOYVESYARIEL Primary Care Provider Assessment Encounter Date [...] Dose Aware of Vial Test Aware: Notes: [email or web address] Not available 01/30/2025 10:08:22 Plan of Treatment [...] Recorded Time Impacted cerumen in right ear 98270685990 95855 Active 2016 Impacted cerumen, right ear; Note: Date Diagnosed : 04/29/2016 4:34 PM (H61.21) Not Available [facility] 4 02:13:30 Allergic rhinitis caused by pollen 54207310 Active 2019 Allergy NOS due to pollen; Note: Date Diagnosed : 11/16/2019 11:51 AM (J30.1) Not Available [facility] 4 02:13:08 Closed fracture of nasal bones 49032437 Active 2022 Fracture of nasal bones, initial encounter for closed fracture; Note: Date Diagnosed : 07/21/2022 10:06 AM (S02.2XXA ) Not Available [facility] 4 02:14:15 Impacted cerumen of bilateral ears 24004331399 11164 Active 2023 TATIANA DOLAN PA-C 100 [facility],[place] [address], [facility] [place] [place], [address] , [facility] - [facility] [place] 4 14:04:01 Nasal congestio n 58445450 Active 2023 TATIANA DOLAN PA-C [address] [place] [address],[place] [address], [place], [address] , [facility] - [facility] [place] 4 14:05:26 Allergic rhinitis 15059670 Active 2023 TATIANA DOLAN PA-C 100 [facility],[place] [address], [place], [address] , [facility] - [facility] [place] 4 14:05:34 Seasonal allergic rhinitis 213509142 Active 2023 KIMBERLEE MARIE 100 [facility],[place] [address], [place], [address] , [facility] - [facility] [place] 5 11:27:13 Non-aller gic rhinitis 12656022277 1 Active 2023 TATIANA DOLAN PA-C 100 [facility],[place] [address], [place], [address] , [facility] - [facility] [place] 4 14:05:34 Abnormal auditory perceptio n 77081910 Active 2024 JEAN CLAUDE RENTERIA [address], [facility] [place], [address] , [place] - [facility] [place] 11:50:31 Hypertrop hy of nasal turbinate s 15510549 Active 2024 KIMBERLEE MARIE [address], [facility] [place], [address] , [place] - [facility] [place] 11:27:26 Perennial allergic rhinitis 235768907 Active 2024 CHICO CORBIN RN 100 [facility] [address],[facility] 100, [facility] [place], [address] , [place] - [facility] [place] 10:33:32 Problem Notes None recorded. Procedures Surgical History Date Name Laterality Status Provider Name and Address Organization Details Recorded Time 01/31/20 25 Allergy Immunotherapy Injections completed Ashkan Cormier 100 [facility],[address], [address], [place] - [facility] [place] 01/30/2025 10:08:12 01/24/20 25 Allergy Immunotherapy Injections completed CHICO CORBIN RN 100 [facility],[place] [address], [place], [address], [place] [facility] [place] 01/23/2025 10:33:55 01/16/20 25 Allergy Immunotherapy Injections completed ANA LILIA STEPHEN 100 [facility] [place] [address], [place], [address], [place] [facility] [place] 01/15/2025 15:46:57 12/23/19 25 JMSNasal/Sinus Endoscopy completed KIMBERLEE MARIE 100 [facility] 100, [place], [address], [place] [facility] [place] 12/22/2024 11:26:34 05/29/19 25 Air & Speech Audio with Tymps - 67290, 27868 & 11913 completed JEAN CLAUDE RENTERIA [address] [facility], [place], [address], [place] - [facility] [place] 05/29/2024 11:49:44 01/03/20 24 Allergy Testing-Full completed ANA LILIA STEPHEN 100 [facility] 100, [place], [address], [facility] 01/03/2024 11:15:19 12/27/19 24 Allergy Testing Modified- Quantitative Testing (MQT) Only completed ANA LILIA STEPHEN 100 [facility] 100, [place], [address], [facility] 12/27/2023 15:09:31 Imaging Results None recorded. [...] unkno wn, unspe cifie d;; Not Available [facility] 00:50:23 Medications Name Sig Start [...] mg tablet 12/26 completed Medicati on ID: [id number] D uration Value: 10 Brand Name: predniso [...] subcut kit 11/15 completed Medicati on ID: [id number] D uration Value: 28 Reason: () Brand [...] ICD10 Code Diagnosis IMO Codes Diagnosis Note [id number] LUZMARIA WADDELL, [facility] Allergy 100 [facility] 100 [place] [address] 01/15/2025 15:11:17 01/15/2025 15:47:40 Perennial allergic rhinitis 410731044 J30.89 [id number] CHICO CORBIN RN Allergy [address] [place] [address],[facility] 100 [place] [address] 01/23/2025 08:52:47 01/23/2025 10:35:34 Perennial allergic rhinitis 676410749 J30.89 [id number] AMAYA SHARMA, [facility] Allergy 100 [facility] 100 [place] [address] 01/30/2025 08:54:34 01/30/2025 10:08:49 Perennial allergic rhinitis 703193196 J30.89 Health Concerns Section Related Observation LastModified by Organization Detai ls LastModified Time None Recorded Concern Status LastModified by Organization Details LastModified Time None Recorded Payers Encounter Date Sequence Insurance Name Policy Number Policy Enamorado Covered Member ID Enamorado Member ID Guarantor Name 01/30/2025 1 [facility] (O) [id number] Tyler Mccann [id number] Tyler Mccann
--- OUTSIDE RECORDS SUMMARY | 2025-03-06 12:31 | XMS_ITS | Continuity of Care Document ---
Author Organization [place] [facility], Allergy Address [address] [address] Care Team Providers Care Director Of Restaurant Name Role Phone DANNIEYARIEL Primary Care Provider [phone] GIOYVESYARIEL Primary Care Provider Assessment Encounter Date [...] Recorded Time Impacted cerumen in right ear [id number] 80422 Active 2016 Impacted cerumen, right ear; Note: Date Diagnosed : 04/29/2016 4:34 PM (H61.21) Not Available [facility] 4 02:13:30 Allergic rhinitis caused by pollen 85538178 Active 2019 Allergy NOS due to pollen; Note: Date Diagnosed : 11/16/2019 11:51 AM (J30.1) Not Available [facility] 4 02:13:08 Closed fracture of nasal bones 90432172 Active 2022 Fracture of nasal bones, initial encounter for closed fracture; Note: Date Diagnosed : 07/21/2022 10:06 AM (S02.2XXA ) Not Available [facility] 4 02:14:15 Impacted cerumen of bilateral ears 81761817373 88543 Active 2023 TATIANA DOLAN PA-C [address], [place], [address] , [facility] [place] 4 14:04:01 Nasal congestio n 32936812 Active 2023 TATIANA DOLAN PA-C [address], [place], [address] , [facility] [place] 4 14:05:26 Allergic rhinitis 52379410 Active 2023 TATIANA DOLAN PA-C [address], [place], [address] , [facility] [place] 4 14:05:34 Seasonal allergic rhinitis 209560787 Active 2023 KIMBERLEE MARIE [address], [place], [address] , [place] [facility] [place] 5 11:27:13 Non-aller gic rhinitis 23412369255 1 Active 2023 TATIANA DOLAN PA-C [address], [place], [address] , [place] [facility] [place] 4 14:05:34 Abnormal auditory perceptio n 93545895 Active 2024 JEAN CLAUDE RENTERIA 100 [facility],[place] [address], [place], [address] , [facility] [place] 5 11:50:31 Hypertrop hy of nasal turbinate s 20844002 Active 2024 KIMBERLEE MARIE 100 [facility],[place] [address], [place], [address] , [facility] [place] 5 11:27:26 Perennial allergic rhinitis 492095260 Active 2024 CHICO CORBIN RN 100 [facility],[place] [address], [place], [address] , [facility] [place] 5 10:33:32 Problem Notes None recorded. Procedures Surgical History Date Name Laterality Status Provider Name and Address Organization Details Recorded Time 01/31/20 25 Allergy Immunotherapy Injections completed Ashkan Cormier 100 [facility],[address], [address], [facility] 01/30/2025 10:08:12 01/24/20 25 Allergy Immunotherapy Injections completed CHICO CORBIN RN 100 [facility],[address], [address], [facility] 01/23/2025 10:33:55 01/16/20 25 Allergy Immunotherapy Injections completed ANA LILIA STEPHEN 100 [facility],[address], [address], [facility] 01/15/2025 15:46:57 12/23/19 25 JMSNasal/Sinus Endoscopy completed KIMBERLEE MARIE 100 [facility],[address], [address], [facility] [place] 12/22/2024 11:26:34 05/29/19 25 Air & Speech Audio with Tymps - 58048, 42360 & 88885 completed JEAN CLAUDE RENTERIA 100 [facility],[address], [address], [facility] [place] 05/29/2024 11:49:44 01/03/20 24 Allergy Testing-Full completed RYLEY JEFFY [facility] 100 [facility],[address], [address], [facility] 01/03/2024 11:15:19 12/27/19 24 Allergy Testing Modified- Quantitative Testing (MQT) Only completed RYLEYKIMBERLY BARDALES [facility] 100 [facility],[place] [address], [place], [address], [facility] 12/27/2023 15:09:31 Imaging Results None recorded. Procedure Notes None recorded. Medical Equipment None Reported. Allergies Allergen ID Allergen Name Allergen Category Reaction Reaction Severity Criticality Documentation Date Start Date Code Code System Note Provider Name and Address Organization Details Recorded Time 02800 penicilli n V potassium medicatio n other Not available Not available 08/24/202390073 5 RxNorm React ion: unkno wn, unspe cifie d;; Not Available [facility] 00:50:23 Medications Name Sig Start [...] mg tablet 12/26 completed Medicati on ID: [id number] D uration Value: 10 Brand Name: predniso [...] subcut kit 11/15 completed Medicati on ID: [id number] D uration Value: 28 Reason: () Brand [...] ICD10 Code Diagnosis IMO Codes Diagnosis Note [id number] ANA LILIA STEPHEN Allergy 100 [facility], [address] [place] [address] 01/15/2025 15:11:17 01/15/2025 15:47:40 Perennial allergic rhinitis [id number] J30.89 [id number] CHICO CORBIN RN Allergy 100 [facility], [address] [place] [address] 01/23/2025 08:52:47 01/23/2025 10:35:34 Perennial allergic rhinitis 890451765 J30.89 Health Concerns Section Related Observation LastModified by Organization Detai ls LastModified Time None Recorded Concern Status LastModified by Organization Details LastModified Time None Recorded Payers Encounter Date Sequence Insurance Name Policy Number Policy En[place]orado Covered Member ID Enamorado Member ID Guarantor Name 01/23/2025 1 [facility] (O) [id number] Tyler Mccann [id number] Tyler Mccann
--- OUTSIDE RECORDS SUMMARY | 2025-03-06 12:31 | XMS_ITS | Data Portability ---
Author Organization [place] - [facility], Allergy Address [address] [address] Care Team Providers Care Driving Teacher Name Role Phone YARIEL PANDEY Primary Care [...] discussed the risk of anaphylaxis with this. [email or web address] Not available 05/29/2024 12:35:44 12/22/2024 12/22/2024 29-year-old [...] he will call/message us when it expires. [email or web address] Not available 12/22/2024 11:46:58 01/15/2025 01/15/2025 Visit With: Luzmaria Bardales Use of Antihistamines: No If yes: Vial Test Yes Change in medications: No If yes Increase in asthma symptoms If yes, inhaler use: Reaction to last injections: If yes: Allergy Symptoms: Other: Missed: Dose Aware of Vial Test Aware: Notes: [email or web address] Not available 01/15/2025 15:47:05 01/23/2025 01/23/2025 Visit [...] Dose Aware of Vial Test Aware: Notes: [email or web address] Not available 01/30/2025 10:08:22 Plan of Treatment [...] auto-inje ctor 2024 025 [facility]armacy #[id number], [address] [place], [address], 05/29/2024 12:32:14 azelastin e 137 mcg (0.1 %) nasal spray 2024 025 [facility]/Pharmacy #[id number], [address] [place], [address], 05/29/2024 12:34:07 Patient TargetsNo targets recorded. Patient Instructions Encounter Date Encounter Id Patient Instructions Last Modified By Organization Details Last Modified Time 01/15/2025 [id number] allergy shots: care instructions [email or web address] Not available 01/15/2025 15:47:33 Reason for Referral [...] Recorded Time Impacted cerumen in right ear [id number] 75929 Active 2016 Impacted cerumen, right ear; Note: Date Diagnosed : 04/29/2016 4:34 PM (H61.21) Not Available [facility] 4 02:13:30 Allergic rhinitis caused by pollen 66667686 Active 2019 Allergy NOS due to pollen; Note: Date Diagnosed : 11/16/2019 11:51 AM (J30.1) Not Available [facility] 4 02:13:08 Closed fracture of nasal bones 44633079 Active 2022 Fracture of nasal bones, initial encounter for closed fracture; Note: Date Diagnosed : 07/21/2022 10:06 AM (S02.2XXA ) Not Available [facility] 4 02:14:15 Impacted cerumen of bilateral ears 60406731695 18375 Active 2023 TATIANA DOLAN PA-C [address], [place], [address] , [place] [facility] [place] 4 14:04:01 Nasal congestio n 14102431 Active 2023 TATIANA DOLAN PA-C [address], [place], [address] , [place] [facility] [place] 4 14:05:26 Allergic rhinitis 48486497 Active 2023 TATIANA DOLAN PA-C [address], [place], [address] , [place] [facility] [place] 4 14:05:34 Seasonal allergic rhinitis 080973873 Active 2023 KIMBERLEE MARIE [address], [place], [address] , [place] [facility] [place] 5 11:27:13 Non-aller gic rhinitis 78326867983 1 Active 2023 TATIANA DOLAN PA-C [address], [place], [address] , [place] [facility] [place] 4 14:05:34 Abnormal auditory perceptio n 19250562 Active 2024 JEAN CLAUDE RENTERIA [address], [place], [address] , [place] [facility] [place] 5 11:50:31 Hypertrop hy of nasal turbinate s 74983078 Active 2024 KIMBERLEE MARIE [address], [place], [address] , [place] [facility] [place] 5 11:27:26 Perennial allergic rhinitis 016124761 Active 2024 CHICO CORBIN RN [address], [place], [address] , [place] [facility] [place] 5 10:33:32 Problem Notes None recorded. Procedures Surgical History Date Name Laterality Status Provider Name and Address Organization Details Recorded Time 01/31/20 25 Allergy Immunotherapy Injections completed Ashkan Cormier 100 [facility],[address], [address], [facility] 01/30/2025 10:08:12 01/24/20 25 Allergy Immunotherapy Injections completed CHICO CORBIN RN 100 [facility],[address], [address], [facility] 01/23/2025 10:33:55 01/16/20 25 Allergy Immunotherapy Injections completed ANA LILIA STEPHEN 100 [facility],[address], [address], [facility] 01/15/2025 15:46:57 12/23/19 25 JMSNasal/Sinus Endoscopy completed KIMBERLEE MARIE 100 [facility],[address], [address], [facility] 12/22/2024 11:26:34 05/29/19 25 Air & Speech Audio with Tymps - 49057, 19916 & 09500 completed JEAN CLAUDE RENTERIA 100 [facility],[address], [address], [facility] 05/29/2024 11:49:44 01/03/20 24 Allergy Testing-Full completed ANA LILIA STEPHEN 100 [facility],[address], [address], [facility] 01/03/2024 11:15:19 12/27/19 24 Allergy Testing Modified- Quantitative Testing (MQT) Only completed ANA LILIA STEPHEN 100 [facility],[address], [address], [facility] 12/27/2023 15:09:31 Imaging Results None recorded. Procedure Notes None recorded. Medical Equipment None Reported. Allergies Allergen ID Allergen Name Allergen Category Reaction Reaction Severity Criticality Documentation Date Start Date Code Code System Note Provider Name and Address Organization Details Recorded Time 54720 penicilli n V potassium medicatio n other [...] mg tablet 12/26 completed Medicati on ID: [id number] D uration Value: 10 Brand Name: predniso [...] subcut kit 11/15 completed Medicati on ID: [id number] D uration Value: 28 Reason: () Brand [...] Updated DateTime 05/29/2024 190.5 cm 29.4 kg/m2 538500.21 g Dianna Cantu [facility] 05/29/2024 11:17:54 Date Recorded Body height Heart rate Systolic And Diastolic Provider Name and Address Organization Details Last Updated DateTime 01/15/2025 190.5 cm 77 /min 138/91 mm[Hg] LUZMARIA BARDALES , [facility] [address], [address], [place] - [facility] 01/15/2025 15:23:07 Social History None recorded. Functional Status None recorded. Mental Status None recorded. Family History Nothing Reported. Medical History Condition Response GERD/Reflux Y Past Encounters Encounter ID Performer Location Encounter Start Date Encounter Closed Date Diagnosis/Indication Diagnosis SNOMED-CT Code Diagnosis ICD10 Code Diagnosis IMO Codes Diagnosis Note [id number] TATIANA DOLAN PA-C [facility] [address] [address] 12/06/2023 13:31:09 12/06/2023 13:55:51 Nasal congestion 04485408 R09.81 [id number] LUZMARIA BARDALES [facility] Allergy [address] [place] [address] 12/27/2023 14:12:56 12/27/2023 15:26:25 Allergic rhinitis 32878105 J30.9 [id number] LUZMARIA BARDALES [facility] Allergy [address] [place] [address] 01/03/2024 10:16:10 01/03/2024 10:17:15 Allergic rhinitis 09543306 J30.9 [id number] TATIANA DOLAN PA-C [facility] [address] [address] 05/29/2024 11:04:38 05/29/2024 12:04:22 Nasal congestion 95881101 R09.81 Allergic rhinitis 239477 04 J30.89 Abnormal a uditory perception 39558641 H93.299 Right Ear:Normal hearing with excellent speech discrimina tion.Type A tympanogra m.Left Ear:Normal hearing with excellent speech discrimina tion.Type A tympanogra m. [id number] ARNEL CISNEROS MD [facility] [address] [address] 12/22/2024 10:12:22 01/01/2025 20:05:15 Seasonal allergic rhinitis 055357714 J30.89 [id number] Hypertroph y of nasal turbinates 42612719 J34.3 14395091 [id number] LUZMARIA BARDALES [facility] [address] [place] [address] 01/15/2025 15:11:17 01/15/2025 15:47:40 Perennial allergic rhinitis 248120752 J30.89 [id number] CHICO CORBIN RN Allergy [address] [place] [address], [address] [place] [address] 01/23/2025 08:52:47 01/23/2025 10:35:34 Perennial allergic rhinitis 701005363 J30.89 [id number] AMAYA SHARMA, ANA LILIA Allergy 100 [facility], [address] [facility] [place] [address] 01/30/2025 08:54:34 01/30/2025 10:08:49 Perennial allergic rhinitis 751787933 J30.89 Health Concerns Section Related Observation LastModified by Organization Detai ls LastModified Time None Recorded Concern Status LastModified by Organization Details LastModified Time None Recorded Advance Directives Directive None Recorded Payers Insurance Date Sequence Insurance Name Policy Number Policy En[place]orado Covered Member ID Enamorado Member ID Guarantor Name 01/30/2025 1 [facility] ([facility] [id number] Tyler Flores Mccann [id number] Tyler L Mccann 05/26/2024 2 [facility] (O) Tyler Flores Mccann [id number] Tyler Flores Mccann Notes Date Note [...] a few years. ARNEL BUNN MD 100 [facility],[address], [address], [facility] - [facility] 05/29/2024 17:08:31 12/22/2024 text/html ROS as [...] at rest. He had PFTs done at [facility] within the month that showed [...] to consider Dupixent. ARNEL BUNN MD [address] [place] [address], [address], [facility] - [facility] 12/22/2024 12:29:49
== END 2025-02-12 00:01 | disposition home or self-care (01) ==
LOC: CF
PROVIDERS: PCP Nurse Practitioner Family; Visit Provider Internal Medicine Gastroenterology
DX: K50.918 Crohn's disease, unspecified, with other complication (principal)
CPT/HCPCS: 83013; 99211

== ENCOUNTER 2025-02-12 08:50 | Outpatient (AMB) | payer OTHER, SELFPAY ==
--- OUTSIDE RECORDS SUMMARY | 2025-02-12 09:28 | XMS_ITS | Data Portability ---
Author Organization [place] - [facility], Allergy Address [address] [address] Care Team Providers Care Wood Scaler Name Role Phone YARIEL PANDEY Primary Care Provider [phone] YARIEL VIZCARRA Primary Care Provider [phone] Assessment Encounter Date Assessment Date Assessment LastModified [...] discussed the risk of anaphylaxis with this. [email or web address] Not available 05/29/2024 12:35:44 12/22/2024 12/22/2024 29-year-old [...] he will call/message us when it expires. [email or web address] Not available 12/22/2024 11:46:58 01/15/2025 01/15/2025 Visit With: Luzmaria Bardales Use of Antihistamines: No If yes: Vial Test Yes Change in medications: No If yes Increase in asthma symptoms If yes, inhaler use: Reaction to last injections: If yes: Allergy Symptoms: Other: Missed: Dose Aware of Vial Test Aware: Notes: Not available 01/15/2025 15:47:05 01/23/2025 01/23/2025 Visit [...] Dose Aware of Vial Test Aware: Notes: [email or web address] Not available 01/30/2025 10:08:22 Plan of Treatment [...] , auto-inje ctor 2024 [id number] [facility]/Pharmacy #[id number], [address] [place], [address], 05/29/2024 12:32:14 azelastin e 137 mcg (0.1 %) nasal spray 2024 025 [facility]/Pharmacy #[id number], [address] [place], [address], 05/29/2024 12:34:07 Patient TargetsNo targets recorded. Patient Instructions Encounter Date Encounter Id Patient Instructions Last Modified By Organization Details Last Modified Time 01/15/2025 [id number] allergy shots: care instructions Not available 01/15/2025 15:47:33 Reason for Referral [...] Recorded Time Impacted cerumen in right ear [id number] 91280 Active 2016 Impacted cerumen, right ear; Note: Date Diagnosed : 04/29/2016 4:34 PM (H61.21) Not Available [facility] 4 02:13:30 Allergic rhinitis caused by pollen 20242275 Active 2019 Allergy NOS due to pollen; Note: Date Diagnosed : 11/16/2019 11:51 AM (J30.1) Not Available [facility] 4 02:13:08 Closed fracture of nasal bones 01691371 Active 2022 Fracture of nasal bones, initial encounter for closed fracture; Note: Date Diagnosed : 07/21/2022 10:06 AM (S02.2XXA ) Not Available [facility] 4 02:14:15 Impacted cerumen of bilateral ears 77699690889 95209 Active 2023 TATIANA DOLAN PA-C [address] [place] [address], [place], [address] , [facility] - [facility] [place] 4 14:04:01 Nasal congestio n 06947459 Active 2023 TATIANA DOLAN PA-C 100 [facility],[place] [address], [place], [place], [address] , [facility] - [facility] [place] 4 14:05:26 Allergic rhinitis 87381124 Active 2023 TATIANA DOLAN PA-C 100 [facility],[place] [address], [place], [place], [address] , [facility] - [facility] [place] 4 14:05:34 Seasonal allergic rhinitis 757423342 Active 2023 KIMBERLEE MARIE 100 [facility],[place] [address], [place], [place], [address] , [facility] - [facility] [place] 5 11:27:13 Non-aller gic rhinitis 93668972387 1 Active 2023 TATIANA DOLAN PA-C 100 [facility],[place] [address], [place], [place], [address] , [facility] - [facility] [place] 4 14:05:34 Abnormal auditory perceptio n 63165307 Active 2024 JEAN CLAUDE RENTERIA 100 [facility],[place] [address], [place], [place], [address] , [facility] - [facility] [place] 5 11:50:31 Hypertrop hy of nasal turbinate s 54597977 Active 2024 KIMBERLEE MARIE 100 [facility],[place] [address], [place], [place], [address] , [facility] - [facility] [place] 5 11:27:26 Perennial allergic rhinitis 067054033 Active 2024 CHICO CORBIN RN 100 [facility],[place] [address], [place], [place], [address] , [facility] - [facility] [place] 5 10:33:32 Problem Notes None recorded. Procedures Surgical History Date Name Laterality Status Provider Name and Address Organization Details Recorded Time 01/31/20 25 Allergy Immunotherapy Injections completed Ashkan Casa [address],[place] [facility], [place], [address], [facility] - [facility] 01/30/2025 10:08:12 01/24/20 25 Allergy Immunotherapy Injections completed CHICO CORBIN RN [address] [facility],[place] [facility], [place], [address], [facility] - [facility] 01/23/2025 10:33:55 01/16/20 25 Allergy Immunotherapy Injections completed ANA LILIA STEPHEN [address],[place] [facility], [place], [address], [facility] - [facility] 01/15/2025 15:46:57 12/23/19 25 JMSNasal/Sinus Endoscopy completed KIMBERLEE MARIE [address] [facility] [address],[place] [address], [place], [address], [facility] 12/22/2024 11:26:34 05/29/19 25 Air & Speech Audio with Tymps - 21078, 52466 & 07361 completed JEAN CLAUDE RENTERIA [address] [facility] [address],[place] [address], [place], [address], [facility] - [facility] 05/29/2024 11:49:44 01/03/20 24 Allergy Testing-Full completed ANA LILIA STEPHEN [address] [facility] [place] [facility], [place], [address], [facility] 01/03/2024 11:15:19 12/27/19 24 Allergy Testing Modified- Quantitative Testing (MQT) Only completed ANA LILIA STEHPEN 100 [facility],[address], [place], [address], [facility] 12/27/2023 15:09:31 Imaging Results None recorded. Procedure Notes None recorded. Medical Equipment None Reported. Allergies Allergen ID Allergen Name Allergen Category Reaction Reaction Severity Criticality Documentation Date Start Date Code Code System Note Provider Name and Address Organization Details Recorded Time 06973 penicilli n V potassium medicatio n other [...] mg tablet 12/26 completed Medicati on ID: [id number] D uration Value: 10 Brand Name: predniso [...] subcut kit 11/15 completed Medicati on ID: [id number] D uration Value: 28 Reason: () Brand [...] Updated DateTime 05/29/2024 190.5 cm 29.4 kg/m2 307059.21 g Dianna Cantu [facility] 05/29/2024 11:17:54 Date Recorded Body height Heart rate Systolic And Diastolic Provider Name and Address Organization Details Last Updated DateTime 01/15/2025 190.5 cm 77 /min 138/91 mm[Hg] LUZMARIA BARDALES , [facility] 100 [facility],[place] [address], [place], [address], [place] - [facility] 01/15/2025 15:23:07 Social History None recorded. Functional Status None recorded. Mental Status None recorded. Family History Nothing Reported. Medical History Condition Response GERD/Reflux Y Past Encounters Encounter ID Performer Location Encounter Start Date Encounter Closed Date Diagnosis/Indication Diagnosis SNOMED-CT Code Diagnosis ICD10 Code Diagnosis IMO Codes Diagnosis Note [id number] TATIANA DOLAN PA-C [facility] 100 [place] [address] 12/06/2023 13:31:09 12/06/2023 13:55:51 Nasal congestion 83865157 R09.81 [id number] LUZMARIA BARDALES [facility] Allergy [address] [place] [address], [place] [address] 12/27/2023 14:12:56 12/27/2023 15:26:25 Allergic rhinitis 62561458 J30.9 [id number] LUZMARIA BARDALES [facility] Allergy [address] [place] [address], [place] [address] 01/03/2024 10:16:10 01/03/2024 10:17:15 Allergic rhinitis 99288156 J30.9 [id number] JEFF NDIAYEC [facility] [address] [place] [address] 05/29/2024 11:04:38 05/29/2024 12:04:22 Nasal congestion 09812090 R09.81 Allergic rhinitis 834220 04 J30.89 Abnormal a uditory perception 59232649 H93.299 Right Ear:Normal hearing with excellent speech discrimina tion.Type A tympanogra m.Left Ear:Normal hearing with excellent speech discrimina tion.Type A tympanogra m. [id number] ARNEL CISNEROS MD [facility] [address] [place] [address] 12/22/2024 10:12:22 01/01/2025 20:05:15 Seasonal allergic rhinitis 220943167 J30.89 04485561 Hypertroph y of nasal turbinates 66049097 J34.3 [id number] LUZMARIA BARDALES [facility] Allergy [address] [place] [address], [place] [address] 01/15/2025 15:11:17 01/15/2025 15:47:40 Perennial allergic rhinitis 839655584 J30.89 [id number] CHICO CORBIN RN Allergy [address] [place] [address], [place] [address] 01/23/2025 08:52:47 01/23/2025 10:35:34 Perennial allergic rhinitis 184334665 J30.89 [id number] AMAYA SHARMA, ANA LILIA Allergy 100 [facility], [address] [place] [address] 01/30/2025 08:54:34 01/30/2025 10:08:49 Perennial allergic rhinitis 893616646 J30.89 Health Concerns Section Related Observation LastModified by Organization Detai ls LastModified Time None Recorded Concern Status LastModified by Organization Details LastModified Time None Recorded Advance Directives Directive None Recorded Payers Insurance Date Sequence Insurance Name Policy Number Policy Enamorado Covered Member ID Enamorado Member ID Guarantor Name 01/30/2025 1 [facility] ([facility] [id number] Tyler Cohenos [id number] Tyler Cohenos 05/26/2024 2 [facility] (O) Tyler Cohenos [id number] Tyler Mccann Notes Date Note Type [...] a few years. ARNEL BUNN MD [address], [address], [facility] - [facility] 05/29/2024 17:08:31 12/22/2024 text/html ROS as noted [...] at rest. He had PFTs done at [facility] within the month that showed partial reversible [...] like to consider Dupixent. ARNEL BUNN MD [address] [place] [address], [address], [facility] - [facility] 12/22/2024 12:29:49
--- NOTE | 2025-02-12 09:39 | AM.OFFVISNUR ---
Intake Visit Reasons: h pylori Intake Note: Pt presents for H Pylori BT. Protocols reviewed with pt and confirmed to be followed. Pt advised of instructions for the test and began testing at 0920. Testing was concluded at 0935. No questions or additional concerns per pt at the end of testing. Advised pt that we will contact them with results when they are obtained. [employer] Required: No Allergies penicillin V Allergy (Intermediate, Verified 02/05/25 13:06) rash Assessment & Plan Assessment & Plan (1) Crohn's disease: Code(s): K50.90 - Crohn's disease, unspecified, without complications Category: Medical Qualifiers: Digestive disease complication type: other complication Gastrointestinal tract location: unspecified location Qualified Code(s): K50.918 - Crohn's disease, unspecified, with other complication (2) Abdominal pain: Code(s): R10.9 - Unspecified abdominal pain Category: Medical Qualifiers: Abdominal location: epigastric Qualified Code(s): R10.13 - Epigastric pain Coding Level of Care Code Established Pt Procedure Only Patient Type Established Diagnoses Crohn's disease with other complication, unspecified gastrointestinal tract location K50.918 Digestive disease complication type: other complication Gastrointestinal tract location: unspecified location Epigastric pain R10.13 Abdominal location: epigastric
== END 2025-02-12 09:43 | disposition home or self-care (01) ==
LOC: HO.HGI 08:51
PROVIDERS: PCP Nurse Practitioner Family; Visit Provider Internal Medicine Gastroenterology
DX: K50.918 Crohn's disease, unspecified, with other complication (principal); R10.13 Epigastric pain

== ENCOUNTER 2025-02-16 09:28 | Outpatient (AMB) | payer OTHER, SELFPAY ==
[2025-02-16 10:25] VITALS: BP 134/88; PULSE 71; RESP 16; TEMP 36.7; O2SAT 99
--- NOTE | 2025-02-16 10:29 | AM.OFFWIN_ITS ---
Intake Vital Signs 02/16/25 10:25 Weight 259 lb BP 134/88 Blood Pressure Location Lt brachial Position Sitting Respiration 16 Pulse 71 Pulse Source Pulse Oximeter Temp 98.1 F Temp Source Oral Pulse Oximetry (%) 99 Oxygen Delivery Method Room Air Intake Visit Reasons: EP-b/l ears pain Patient Tobacco Use Status: Never used Tobacco Allergies penicillin V Allergy (Intermediate, Verified 02/16/25 10:29) rash Do you need a note to return to daycare/school/sports/work: No HPI HPI Comments History of Present Illness Details This is a 29-year-old male with a past medical history of seasonal allergies, asthma and ADHD presenting for evaluation of bilateral ear pain that he has had for the past 2 weeks. Patient states the pain is itching an aching in nature and has not worsened but has not improved with the Tylenol. Patient states this has occurred before. He denies having any fevers, chills or decreased hearing. Patient states that he does use Q-tips frequently. 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 Mother Hypertension Maternal Grandfather Diabetes Stroke Other Anemia Social History Household Members: Friend(s) Housing: Apartment Are you a primary critical care educator to a significant other at home: No Do you presently have visiting nurse or other home services: No Alcohol intake: never Patient Tobacco Use Status: Never used Tobacco e-Cigarette/Vaping Use: Never Used Second Hand Smoke Exposure: No service: No Current occupational status: employed Current occupation: [employer] Cognitive needs: No Hearing needs: No Vision needs: No Review of Systems Const All systems reviewed & are unremarkable except as noted in HPI and below Denies body aches, Denies chills, Denies fatigue, Denies fever(s) and Reports headache(s) Eyes Reports no additional complaints ENT Reports otalgia (Bilaterally left > right\), Denies facial pain, Reports headache(s), Denies sinus pressure and Denies sore throat Card Reports no additional complaints Resp Reports no additional complaints GI Reports no additional complaints Reports no additional complaints Musc Reports no additional complaints Skin/Breast Reports system reviewed and no additional complaints, except as documented Neuro Reports no additional complaints and Reports headache(s) Psych Reports no additional complaints Endo Reports no additional complaints and Denies fatigue Niall/Lymph Reports no additional complaints Aller/Immun Reports no additional complaints Physical Exam Vital Signs: Last Vital Signs Temp 98.1 F 02/16/25 10:25 Pulse 71 02/16/25 10:25 Resp 16 02/16/25 10:25 BP 134/88 02/16/25 10:25 Pulse Ox 99 02/16/25 10:25 Oxygen Delivery Method Room Air 02/16/25 10:25 Const General: cooperative, healthy appearing, comfortable, no acute distress, well developed, alert and awake Nutritional Appearance: average body habitus Limitations: no limitations HEENT Head: Yes normal to inspection and Yes normocephalic Ears: hearing grossly normal bilaterally, external ears normal, TM's normal bilaterally, EAC's normal, mastoids normal and other (No pain to palpation of the external ear bilaterally) General nose exam: Normal external nose present Face and sinus: Yes normal facial exam Eyes General: appearance normal, both eyes and all related structures Neck Lymphatic: no lymphadenopathy noted Skin General skin exam: no rashes or lesions noted Psych Appearance: grossly normal Mental Status: mental status grossly normal Insight: Good insight present (Psych) Judgement: Good judgement present (Psych) Assessment & Plan Assessment & Plan (1) Otalgia of both ears: Comment: There is no evidence of an otitis media or otitis externa bilaterally. Additionally, there is no clinical evidence of an external cellulitis of the ears. Patient is reassured. Code(s): H92.03 - Otalgia, bilateral Plan: Tylenol or ibuprofen as needed for your discomfort. Coding Level of Care Code Est Pt Level 3 (08398) Diagnoses Otalgia of both ears H92.03 Time Spent (min) 20
--- OUTSIDE RECORDS SUMMARY | 2025-02-16 10:44 | XMS_ITS | Continuity of Care Document ---
Author Organization [place] - [facility], Allergy Address [address] [address] Care Team Providers Care Intermediate Frame Tender Name Role Phone DANNIEYARIEL Primary Care Provider [phone] YARIEL VIZCARRA Primary Care Provider [phone] Assessment Encounter Date Assessment Date Assessment LastModified by Organization Details LastModified Time 01/15/2025 01/15/2025 Visit With: Luzmaria Waddell Use of Antihistamine s: No If yes: Vial Test Yes Change in medications: No If yes Increase in asthma symptoms If yes, inhaler use: Reaction to last injections: If yes: Allergy Symptoms: Other: Missed: Dose Aware of Vial Test Aware: Notes: [email or web address] Not available 01/15/2025 15:47:05 Plan of Treatment Reminders Order Date Submit Date Provider Last Modified By Organization Details Last Modified Time Details Appointments [facility]- Allergy f-up 6mon 2025 10:30A M ARNEL CUNNINGHAM MD Not available Not available Not available Lab None recorded . Referral None recorded . Procedures None recorded . Surgeries None recorded . Imaging None recorded . Medication Orders None recorded . Patient TargetsNo targets recorded. Patient Instructions Encounter Date Encounter Id Patient Instructions Last Modified By Organization Details Last Modified Time 01/15/2025 [id number] allergy shots: care instructions Not available 01/15/2025 15:47:33 Reason for Referral None Reported. Problems Name Problem SNOMED Code Status Onset Date Resolution Date Notes Provider Name and Address Organization Details Recorded Time Impacted cerumen in right ear 58368639579 24628 Active 2016 Impacted cerumen, right ear; Note: Date Diagnosed : 04/29/2016 4:34 PM (H61.21) Not Available [facility] 4 02:13:30 Allergic rhinitis caused by pollen 53930437 Active 2019 Allergy NOS due to pollen; Note: Date Diagnosed : 11/16/2019 11:51 AM (J30.1) Not Available [facility] 4 02:13:08 Closed fracture of nasal bones 84008935 Active 2022 Fracture of nasal bones, initial encounter for closed fracture; Note: Date Diagnosed : 07/21/2022 10:06 AM (S02.2XXA ) Not Available [facility] 4 02:14:15 Impacted cerumen of bilateral ears 16479276960 57454 Active 2023 TATIANA DOLAN PA-C [address], [place], [address] , [place] - [facility] 4 14:04:01 Nasal congestio n 93254363 Active 2023 TATIANA DOLAN PA-C [address], [place], [address] , [place] - [facility] 4 14:05:26 Allergic rhinitis 96854117 Active 2023 TATIANA DOLAN PA-C [address], [place], [address] , [place] - [facility] 4 14:05:34 Seasonal allergic rhinitis 350589184 Active 2023 KIMBERLEE MARIE [address], [place], [address] , [place] - [facility] 5 11:27:13 Non-aller gic rhinitis 63426202233 1 Active 2023 TATIANA DOLAN PA-C [address], [place], [address] , [place] - [facility] 4 14:05:34 Abnormal auditory perceptio n 51259646 Active 2024 JEAN CLAUDE RENTERIA [address], [facility] [place] [place], [address] , [place] - [facility] 11:50:31 Hypertrop hy of nasal turbinate s 37309740 Active 2024 KIMBERLEE MARIE [address] [facility] [facility] [facility], [facility] [place], [address] , [facility] - [facility] 11:27:26 Perennial allergic rhinitis 981889985 Active 2024 CHICO CORBIN RN [address] [facility] [place] [address], [facility] [place] [place], [address] , [facility] - [facility] 10:33:32 Problem Notes None recorded. Procedures Surgical History Date Name Laterality Status Provider Name and Address Organization Details Recorded Time 01/31/20 25 Allergy Immunotherapy Injections completed Ashkan Cormier 100 [facility],[place] [address], [place], [address], [facility] - [facility] 01/30/2025 10:08:12 01/24/20 25 Allergy Immunotherapy Injections completed CHICO CORBIN RN 100 [facility],[place] [address], [place], [address], [facility] - [facility] 01/23/2025 10:33:55 01/16/20 25 Allergy Immunotherapy Injections completed ANA LILIA STEPHEN [address] [facility] [place] [address], [place], [address], [place] - [facility] 01/15/2025 15:46:57 12/23/19 25 JMSNasal/Sinus Endoscopy completed KIMBERLEE MARIE [address], [place], [address], [facility] - [facility] 12/22/2024 11:26:34 05/29/19 25 Air & Speech Audio with Tymps - 75179, 08712 & 36144 completed JEAN CLAUDE RENTERIA [address], [place], [address], [place] - [facility] 05/29/2024 11:49:44 01/03/20 24 Allergy Testing-Full completed ANA LILIA STEPHEN 100 [facility],[place] [address], [place], [address], [facility] 01/03/2024 11:15:19 12/27/19 24 Allergy Testing Modified- Quantitative Testing (MQT) Only completed ANA LILIA STEPHEN 100 [facility] 100, [place], [address], [facility] 12/27/2023 15:09:31 Imaging Results None [...] unkno wn, unspe cifie d;; Not Available [facility] 00:50:23 Medications Name Sig Start Date Stop [...] mg tablet 12/26 completed Medicati on ID: [id number] D uration Value: 10 Brand Name: predniso [...] subcut kit 11/15 completed Medicati on ID: [id number] D uration Value: 28 Reason: () Brand Name: Zackery Cabello Crohns-U C-HS Start Se nd Method: E-Prescr ibed Sub s Allowed: subs OK Medic ationGen ericName : Zackery Cabello Crohns-U C-HS Start Not Available Not Available [...] Not Available Vitals Date Recorded Body height Heart rate Systolic And Diastolic Provider Name and Address Organization Details Last Updated DateTime 01/15/2025 190.5 cm 77 /min 138/91 mm[Hg] ANA LILIA STEPHEN [address], [address], [place] - [facility] 01/15/2025 15:23:07 Social History None recorded. Functional Status None recorded. Mental Status None recorded. Family History Nothing Reported. Medical History Condition Response GERD/Reflux Y Past Encounters Encounter ID Performer Location Encounter Start Date Encounter Closed Date Diagnosis/Indication Diagnosis SNOMED-CT Code Diagnosis ICD10 Code Diagnosis IMO Codes Diagnosis Note [id number] ARNEL CISNEROS MD [facility] [address] [place] [address] 12/22/2024 10:12:22 01/01/2025 20:05:15 Seasonal allergic rhinitis 387329027 J30.89 52810140 Hypertroph y of nasal turbinates 84157928 J34.3 [id number] ANA LILIA STEPHEN [facility] [address] [place] [address] 01/15/2025 15:11:17 01/15/2025 15:47:40 Perennial allergic rhinitis 468708185 J30.89 Health Concerns Section Related Observation LastModified by Organization Detai ls LastModified Time None Recorded Concern Status LastModified by Organization Details LastModified Time None Recorded Payers Encounter Date Sequence Insurance Name Policy Number Policy En[employer] Covered Member ID Enamorado Member ID Guarantor Name 01/15/2025 1 [facility] (O) [id number] Tyler Mccann [id number] Tyler Mccann
--- OUTSIDE RECORDS SUMMARY | 2025-02-16 10:44 | XMS_ITS | Continuity of Care Document ---
Author Organization [place] - [facility], Allergy Address [address] [address] Care Team Providers Care Roundhouse Worker Name Role Phone DANNIE, YARIEL Primary Care Provider GIOYVESYARIEL Primary Care Provider [phone] Assessment Encounter Date Assessment Date Assessment LastModified by Organization Details LastModified Time 01/23/2025 01/23/2025 Visit With: Chico Corbin RN Use of Antihistamine s: No If yes: Vial Test Change in medications: No If yes Increase in asthma symptoms No If yes, inhaler use: Reaction to last injections: No If yes: Allergy Symptoms: Other: Missed: Dose Aware of Vial Test Aware: Notes:using breo daily and rescue inhaler 2x a day. Advised to call PCP and make aware how often using rescue inhaler. [email or web address] Not available 01/23/2025 10:34:48 Plan of Treatment Reminders Order Date Submit Date Provider Last Modified By Organization Details Last Modified Time Details Appointments [facility]- Allergy f-up 6mon 2025 10:30A M ARNEL CUNNINGHAM MD Not available Not available Not available Lab None recorded . Referral None recorded . Procedures None recorded . Surgeries None recorded . Imaging None recorded . Medication Orders None recorded . Patient TargetsNo targets recorded. Patient InstructionsNo instructions recorded. Reason for Referral None Reported. Problems Name Problem SNOMED Code Status Onset Date Resolution Date Notes Provider Name and Address Organization Details Recorded Time Impacted cerumen in right ear 77341678694 28222 Active 2016 Impacted cerumen, right ear; Note: Date Diagnosed : 04/29/2016 4:34 PM (H61.21) Not Available [facility] 4 02:13:30 Allergic rhinitis caused by pollen 39449199 Active 2019 Allergy NOS due to pollen; Note: Date Diagnosed : 11/16/2019 11:51 AM (J30.1) Not Available [facility] 4 02:13:08 Closed fracture of nasal bones 09164957 Active 2022 Fracture of nasal bones, initial encounter for closed fracture; Note: Date Diagnosed : 07/21/2022 10:06 AM (S02.2XXA ) Not Available [facility] 4 02:14:15 Impacted cerumen of bilateral ears 67398130160 69154 Active 2023 TATIANA DOLAN PA-C 100 [facility] 100, [place], [address] , [place] - [facility] [place] 4 14:04:01 Nasal congestio n 62183390 Active 2023 TATIANA DOLAN PA-C [address] [place] [address],[facility] [address], [place], [address] , [place] - [facility] [place] 4 14:05:26 Allergic rhinitis 59499021 Active 2023 TATIANA DOLAN PA-C 100 [facility],[place] [address], [place], [address] , [place] [facility] [place] 4 14:05:34 Seasonal allergic rhinitis 985719171 Active 2023 KIMBERLEE MARIE 100 [facility] 100, [place], [address] , [facility] - [facility] [place] 5 11:27:13 Non-aller gic rhinitis 73375957124 1 Active 2023 TATIANA DOLAN PA-C 100 [facility],[place] [address], [place], [address] , [facility] - [facility] [place] 4 14:05:34 Abnormal auditory perceptio n 86495478 Active 2024 JEAN CLAUDE RENTERIA 100 [facility],[address], [place], [address] , [place] [facility] [place] 11:50:31 Hypertrop hy of nasal turbinate s 00148804 Active 2024 KIMBERLEE MARIE [address] [facility] [facility] [address], [place], [address] , [place] [facility] [place] 11:27:26 Perennial allergic rhinitis 228131235 Active 2024 CHICO CORBIN RN 100 [facility] [place],[facility] [address], [place], [address] , [place] [facility] [place] 10:33:32 Problem Notes None recorded. Procedures Surgical History Date Name Laterality Status Provider Name and Address Organization Details Recorded Time 01/31/20 25 Allergy Immunotherapy Injections completed Ashkan Cormier 100 [facility],[place] [address], [place], [address], [place] - [facility] 01/30/2025 10:08:12 01/24/20 25 Allergy Immunotherapy Injections completed CHICO CORBIN RN 100 [facility],[place] [address], [place], [address], [place] [facility] [place] 01/23/2025 10:33:55 01/16/20 25 Allergy Immunotherapy Injections completed ANA LILIA STEPHEN [address] [facility] [place] [address], [place], [address], [place] [facility] [place] 01/15/2025 15:46:57 12/23/19 25 JMSNasal/Sinus Endoscopy completed KIMBERLEE MARIE 100 [facility] 100, [place], [address], [place] [facility] [place] 12/22/2024 11:26:34 05/29/19 25 Air & Speech Audio with Tymps - 52369, 61401 & 36981 completed JEAN CLAUDE RENTERIA [address] [facility] [facility], [place], [address], [place] - [facility] [place] 05/29/2024 11:49:44 01/03/20 24 Allergy Testing-Full completed ANA LILIA STEPHEN 100 [facility] 100, [place], [address], [facility] 01/03/2024 11:15:19 12/27/19 24 Allergy Testing Modified- Quantitative Testing (MQT) Only completed ANA LILIA STEPHEN 100 [facility] 100, [place], [address], [facility] 12/27/2023 15:09:31 Imaging Results None recorded. Procedure Notes None recorded. Medical Equipment None Reported. Allergies Allergen ID Allergen Name Allergen Category Reaction Reaction Severity Criticality Documentation Date Start Date Code Code System Note Provider Name and Address Organization Details Recorded Time 63175 penicilli n V potassium medicatio n other Not available Not available 08/24/2023 5 RxNorm React ion: unkno wn, unspe cifie d;; Not Available [facility] 00:50:23 Medications Name Sig Start Date [...] mg tablet 12/26 completed Medicati on ID: [id number] D uration Value: 10 Brand Name: predniso [...] subcut kit 11/15 completed Medicati on ID: [id number] D uration Value: 28 Reason: () Brand [...] Not Available Not Available Not Available Vitals None Recorded Social History None recorded. Functional Status None recorded. Mental Status None recorded. Family History Nothing Reported. Medical History Condition Response GERD/Reflux Y Past Encounters Encounter ID Performer Location Encounter Start Date Encounter Closed Date Diagnosis/Indication Diagnosis SNOMED-CT Code Diagnosis ICD10 Code Diagnosis IMO Codes Diagnosis Note [id number] ANA LILIA STEPHEN Allergy 100 [facility] 100 [place] [address] 01/15/2025 15:11:17 01/15/2025 15:47:40 Perennial allergic rhinitis 540709538 J30.89 [id number] CHICO CORBIN RN Allergy 100 [facility] 100 [place] [address] 01/23/2025 08:52:47 01/23/2025 10:35:34 Perennial allergic rhinitis 146835316 J30.89 Health Concerns Section Related Observation LastModified by Organization Detai ls LastModified Time None Recorded Concern Status LastModified by Organization Details LastModified Time None Recorded Payers Encounter Date Sequence Insurance Name Policy Number Policy En[place]or[place] Covered Member ID Enamorado Member ID Guarantor Name 01/23/2025 1 [facility] (O) [id number] Tyler Mccann [id number] Tyler Mccann
--- OUTSIDE RECORDS SUMMARY | 2025-02-16 10:44 | XMS_ITS | Continuity of Care Document ---
Author Organization [place] [facility], Allergy Address [address] [address] Care Team Providers Care Environmental Health Safety Manager Name Role Phone DANNIEYARIEL Primary Care Provider YARIEL VIZCARRA Primary Care Provider [phone] Assessment Encounter Date Assessment Date Assessment LastModified by Organization Details LastModified Time 01/30/2025 01/30/2025 Visit With: Luzmaria Waddell Use of Antihistamine [...] Details Last Modified Time Details Appointments [facility]- Allergy f-up 6mon 2025 10:30A M [...] Recorded Time Impacted cerumen in right ear 14258206538 48029 Active 2016 Impacted cerumen, right ear; Note: Date Diagnosed : 04/29/2016 4:34 PM (H61.21) Not Available [facility] 4 02:13:30 Allergic rhinitis caused by pollen 96696668 Active 2019 Allergy NOS due to pollen; Note: Date Diagnosed : 11/16/2019 11:51 AM (J30.1) Not Available [facility] 4 02:13:08 Closed fracture of nasal bones 70879272 Active 2022 Fracture of nasal bones, initial encounter for closed fracture; Note: Date Diagnosed : 07/21/2022 10:06 AM (S02.2XXA ) Not Available [facility] 4 02:14:15 Impacted cerumen of bilateral ears 13297563590 25061 Active 2023 TATIANA DOLAN PA-C [address], [place], [address] , [facility] 4 14:04:01 Nasal congestio n 00153951 Active 2023 TATIANA DOLAN PA-C 100 [facility] [place] [address], [place], [place], [address] , [facility] 4 14:05:26 Allergic rhinitis 40465459 Active 2023 TATIANA DOLAN PA-C 100 [facility] [place],[facility] 100, [place], [place], [address] , [facility] 4 14:05:34 Seasonal allergic rhinitis 279985122 Active 2023 KIMBERLEE MARIE [address] [place],[address], [place], [place], [address] , [facility] - [facility] 5 11:27:13 Non-aller gic rhinitis 11687013744 1 Active 2023 TATIANA DOLAN PA-C [address], [place], [address] , [facility] - [facility] 4 14:05:34 Abnormal auditory perceptio n 12866750 Active 2024 JEAN CLAUDE RENTERIA [address], [place], [address] , [place] - [facility] 5 11:50:31 Hypertrop hy of nasal turbinate s 68129368 Active 2024 KIMBERLEE MARIE 100 [facility],[place] [address], [place], [address] , [place] [facility] 5 11:27:26 Perennial allergic rhinitis 074240991 Active 2024 CHICO CORBIN RN 100 [facility],[address], [address] , [place] [facility] 5 10:33:32 Problem Notes None recorded. Procedures Surgical History Date Name Laterality Status Provider Name and Address Organization Details Recorded Time 01/31/20 25 Allergy Immunotherapy Injections completed Ashkan Cormier 100 [facility],[address], [address], [facility] - [facility] 01/30/2025 10:08:12 01/24/20 25 Allergy Immunotherapy Injections completed CHICO CORBIN RN 100 [facility],[address], [address], [facility] - [facility] 01/23/2025 10:33:55 01/16/20 25 Allergy Immunotherapy Injections completed ANA LILIA STEPHEN [address] [place] [address],[address], [address], [facility] - [facility] 01/15/2025 15:46:57 12/23/19 25 JMSNasal/Sinus Endoscopy completed KIMBERLEE MARIE 100 [facility],[address], [address], [place] [facility] 12/22/2024 11:26:34 05/29/19 25 Air & Speech Audio with Tymps - 73649, 26833 & 46686 completed JEAN CLAUDE RENTERIA 100 [facility],[address], [address], [place] - [facility] 05/29/2024 11:49:44 01/03/20 24 Allergy Testing-Full completed ANA LILIA STEPHEN 100 [facility],[address], [address], [place] [facility] 01/03/2024 11:15:19 12/27/19 24 Allergy Testing Modified- Quantitative Testing (MQT) Only completed LUZMARIA WADDELL, A [address] [address], [place], [address], [facility] - [facility] 12/27/2023 15:09:31 Imaging Results None recorded. [...] unkno wn, unspe cifie d;; Not Available [facility] 00:50:23 Medications Name Sig Start Date [...] mg tablet 12/26 completed Medicati on ID: [id number] D uration Value: 10 Brand Name: predniso [...] completed Not Available Not Available Not Available Zacekry Cabello Crohn's-U lc Colitis-H id Sup Starter 40 mg/0.8 mL subcut kit 11/15 completed Medicati on ID: [id number] D uration Value: 28 Reason: () Brand [...] ICD10 Code Diagnosis IMO Codes Diagnosis Note [id number] LUZMARIA JEFFY, RMA Allergy 100 [facility] [place] [address] 100 [place] [address] 01/15/2025 15:11:17 01/15/2025 15:47:40 Perennial allergic rhinitis 143247490 J30.89 [id number] CHICO CORBIN RN Allergy 100 [facility],[place] [address] [place] [address] 01/23/2025 08:52:47 01/23/2025 10:35:34 Perennial allergic rhinitis 169764398 J30.89 [id number] AMAYA EAGLEClovis, RMA Allergy 100 [facility] [place] [address] 100 [place] [address] 01/30/2025 08:54:34 01/30/2025 10:08:49 Perennial allergic rhinitis 591515072 J30.89 Health Concerns Section Related Observation LastModified by Organization Detai ls LastModified Time None Recorded Concern Status LastModified by Organization Details LastModified Time None Recorded Payers Encounter Date Sequence Insurance Name Policy Number Policy Enamorado Covered Member ID Enamorado Member ID Guarantor Name 01/30/2025 1 [facility] (O) [id number] Tyler Mccann [id number] Tyler Mccann
--- OUTSIDE RECORDS SUMMARY | 2025-02-16 10:44 | XMS_ITS | Data Portability ---
Author Organization [place] - [facility], Allergy Address [address] [address] Care Team Providers Care Christmas Tree Farmer Name Role Phone YARIEL PANDEY Primary Care Provider [phone] YARIEL VIZCARRA Primary Care Provider Assessment Encounter [...] discussed the risk of anaphylaxis with this. [email or web address] Not available 05/29/2024 12:35:44 12/22/2024 12/22/2024 29-year-old [...] he will call/message us when it expires. [email or web address] Not available 12/22/2024 11:46:58 01/15/2025 01/15/2025 Visit [...] Dose Aware of Vial Test Aware: Notes: [email or web address] Not available 01/30/2025 10:08:22 Plan of Treatment [...] mL injection , auto-inje ctor 2024 025 [facility]/Pharmacy #[id number], [address] [place], [address], 05/29/2024 12:32:14 azelastin e 137 mcg (0.1 %) nasal spray 2024 025 [facility]/Pharmacy #[id number], [address] [place], [address], 05/29/2024 12:34:07 Patient TargetsNo targets recorded. Patient Instructions Encounter Date Encounter Id Patient Instructions Last Modified By Organization Details Last Modified Time 01/15/2025 [id number] allergy shots: care instructions [email or web address] Not available 01/15/2025 15:47:33 Reason for Referral [...] Recorded Time Impacted cerumen in right ear [id number] 41133 Active 2016 Impacted cerumen, right ear; Note: Date Diagnosed : 04/29/2016 4:34 PM (H61.21) Not Available [facility] 4 02:13:30 Allergic rhinitis caused by pollen 16332382 Active 2019 Allergy NOS due to pollen; Note: Date Diagnosed : 11/16/2019 11:51 AM (J30.1) Not Available [facility] 4 02:13:08 Closed fracture of nasal bones 18879863 Active 2022 Fracture of nasal bones, initial encounter for closed fracture; Note: Date Diagnosed : 07/21/2022 10:06 AM (S02.2XXA ) Not Available [facility] 4 02:14:15 Impacted cerumen of bilateral ears 71892805248 25777 Active 2023 TATIANA DOLAN PA-C [address] [place] [address], [place], [address] , [facility] [place] 4 14:04:01 Nasal congestio n 53170691 Active 2023 TATIANA DOLAN PA-C 100 [facility],[place] [address], [place], [place], [address] , [facility] [place] 4 14:05:26 Allergic rhinitis 87159006 Active 2023 TATIANA DOLAN PA-C 100 [facility],[place] [address], [place], [place], [address] , [facility] [place] 4 14:05:34 Seasonal allergic rhinitis 517712619 Active 2023 KIMBERLEE MARIE 100 [facility],[place] [address], [place], [place], [address] , [facility] - [facility] [place] 5 11:27:13 Non-aller gic rhinitis 79331287817 1 Active 2023 TATIANA DOLAN PA-C 100 [facility],[place] [address], [place], [place], [address] , [facility] - [facility] [place] 4 14:05:34 Abnormal auditory perceptio n 39070299 Active 2024 JEAN CLAUDE RENTERIA 100 [facility],[place] [address], [place], [place], [address] , [facility] - [facility] [place] 5 11:50:31 Hypertrop hy of nasal turbinate s 00317301 Active 2024 KIMBERLEE MARIE 100 [facility],[place] [address], [place], [place], [address] , [facility] - [facility] [place] 5 11:27:26 Perennial allergic rhinitis 170812698 Active 2024 CHICO CORBIN RN 100 [facility],[place] [address], [place], [place], [address] , [facility] - [facility] [place] 5 10:33:32 Problem Notes None recorded. Procedures Surgical History Date Name Laterality Status Provider Name and Address Organization Details Recorded Time 01/31/20 25 Allergy Immunotherapy Injections completed Ashkan Casa [address] [facility] [facility], [place], [address], [facility] - [facility] 01/30/2025 10:08:12 01/24/20 25 Allergy Immunotherapy Injections completed CHICO CORBIN RN 100 [facility] [place],[address] [facility], [place], [address], [facility] - [facility] 01/23/2025 10:33:55 01/16/20 25 Allergy Immunotherapy Injections completed ANA LILIA STEPHEN [address] [facility] [address] [facility], [place], [address], [facility] - [facility] 01/15/2025 15:46:57 12/23/19 25 JMSNasal/Sinus Endoscopy completed KIMBERLEE MARIE [address] [facility] [address],[place] [address], [place], [address], [facility] 12/22/2024 11:26:34 05/29/19 25 Air & Speech Audio with Tymps - 12899, 63188 & 20497 completed JEAN CLAUDE RENTERIA 100 [facility] [place] [address], [place], [address], [facility] - [facility] 05/29/2024 11:49:44 01/03/20 24 Allergy Testing-Full completed ANA LILIA STEPHEN 100 [facility] [place],[address] [facility], [place], [address], [facility] 01/03/2024 11:15:19 12/27/19 24 Allergy Testing Modified- Quantitative Testing (MQT) Only completed ANA LILIA STEPHEN 100 [facility],[address], [place], [address], [facility] 12/27/2023 15:09:31 Imaging Results None recorded. Procedure Notes None recorded. Medical Equipment None Reported. Allergies Allergen ID Allergen Name Allergen Category Reaction Reaction Severity Criticality Documentation Date Start Date Code Code System Note Provider Name and Address Organization Details Recorded Time 93754 penicilli n V potassium medicatio n other [...] mg tablet 12/26 completed Medicati on ID: [id number] D uration Value: 10 Brand Name: predniso [...] subcut kit 11/15 completed Medicati on ID: [id number] D uration Value: 28 Reason: () Brand [...] Updated DateTime 05/29/2024 190.5 cm 29.4 kg/m2 998564.21 g Dianna Cantu [facility] 05/29/2024 11:17:54 Date Recorded Body height Heart rate Systolic And Diastolic Provider Name and Address Organization Details Last Updated DateTime 01/15/2025 190.5 cm 77 /min 138/91 mm[Hg] LUZMARIA BARDALES , [facility] 100 [facility],[place] [address], [place], [address], [place] - [facility] 01/15/2025 15:23:07 Social History None recorded. Functional Status None recorded. Mental Status None recorded. Family History Nothing Reported. Medical History Condition Response GERD/Reflux Y Past Encounters Encounter ID Performer Location Encounter Start Date Encounter Closed Date Diagnosis/Indication Diagnosis SNOMED-CT Code Diagnosis ICD10 Code Diagnosis IMO Codes Diagnosis Note [id number] TATIANA DOLAN PA-C [facility] [address] [facility] [place] [address] 12/06/2023 13:31:09 12/06/2023 13:55:51 Nasal congestion 86452331 R09.81 [id number] LUZMARIA BARDALES [facility] Allergy [address] [place] [address], [place] [address] 12/27/2023 14:12:56 12/27/2023 15:26:25 Allergic rhinitis 04454133 J30.9 [id number] LUZMARIA BARDALES [facility] Allergy [address] [place] [address], [place] [address] 01/03/2024 10:16:10 01/03/2024 10:17:15 Allergic rhinitis 35087082 J30.9 [id number] JEFF NDIAYEC [facility] [address] [place] [address] 05/29/2024 11:04:38 05/29/2024 12:04:22 Nasal congestion 43512960 R09.81 Allergic rhinitis 303763 04 J30.89 Abnormal a uditory perception 55051412 H93.299 Right Ear:Normal hearing with excellent speech discrimina tion.Type A tympanogra m.Left Ear:Normal hearing with excellent speech discrimina tion.Type A tympanogra m. [id number] ARNEL CISNEROS MD [facility] [address] [place] [address] 12/22/2024 10:12:22 01/01/2025 20:05:15 Seasonal allergic rhinitis 470036698 J30.89 91094139 Hypertroph y of nasal turbinates 06028159 J34.3 [id number] LUZMARIA BARDALES [facility] Allergy [address] [place] [address], [place] [address] 01/15/2025 15:11:17 01/15/2025 15:47:40 Perennial allergic rhinitis 612933313 J30.89 [id number] CHICO CORBIN RN Allergy [address] [place] [address], [place] [address] 01/23/2025 08:52:47 01/23/2025 10:35:34 Perennial allergic rhinitis 112457787 J30.89 [id number] AMAYA SHARMA, ANA LILIA Allergy 100 [facility], [address] [place] [address] 01/30/2025 08:54:34 01/30/2025 10:08:49 Perennial allergic rhinitis 998602932 J30.89 Health Concerns Section Related Observation LastModified by Organization Detai ls LastModified Time None Recorded Concern Status LastModified by Organization Details LastModified Time None Recorded Advance Directives Directive None Recorded Payers Insurance Date Sequence Insurance Name Policy Number Policy Enamorado Covered Member ID Enamorado Member ID Guarantor Name 01/30/2025 1 [facility] [id number] Tyler Cohenos [id number] Tyler Cohenos 05/26/2024 2 [facility] (O) Tyler Cohenos [id number] Tyler Mccann Notes Date Note Type [...] a few years. ARNEL BUNN MD [address], [address], [facility] 05/29/2024 17:08:31 12/22/2024 text/html ROS as noted [...] at rest. He had PFTs done at [facility] within the month that showed partial [...] like to consider Dupixent. ARNEL BUNN MD [address] [place] [address], [address], [facility] - [facility] 12/22/2024 12:29:49
--- OUTSIDE RECORDS SUMMARY | 2025-02-16 10:44 | XMS_ITS | Continuity of Care Document ---
Author Organization [place] - [facility], [facility] Address [address] [place] [address] Care Team Providers Care Color Shop Helper Name Role Phone DANNIE, YARIEL Primary Care Provider [phone] GIOYVESYARIEL Primary Care Provider Assessment Encounter Date Assessment Date Assessment LastModified by Organization Details LastModified Time 12/22/2024 12/22/2024 29-year-old male presents for evaluation [...] he will call/message us when it expires. Not available 12/22/2024 11:46:58 Plan of Treatment [...] 2024 025 [email or web address] Not available 01/19/2025 13:43:44 Surgeries None recorded. Imaging None recorded. Medication Orders None recorded. Patient TargetsNo targets recorded. Patient InstructionsNo instructions recorded. Reason for Referral None Reported. Problems Name Problem SNOMED Code Status Onset Date Resolution Date Notes Provider Name and Address Organization Details Recorded Time Impacted cerumen in right ear [id number] 48093 Active 2016 Impacted cerumen, right ear; Note: Date Diagnosed : 04/29/2016 4:34 PM (H61.21) Not Available [facility] 4 02:13:30 Allergic rhinitis caused by pollen 73284807 Active 2019 Allergy NOS due to pollen; Note: Date Diagnosed : 11/16/2019 11:51 AM (J30.1) Not Available [facility] 4 02:13:08 Closed fracture of nasal bones 11889283 Active 2022 Fracture of nasal bones, initial encounter for closed fracture; Note: Date Diagnosed : 07/21/2022 10:06 AM (S02.2XXA ) Not Available [facility] 4 02:14:15 Impacted cerumen of bilateral ears 16269471668 83163 Active 2023 TATIANA DOLAN PA-C [address] [place] [address], [place], [address] , [facility] - [facility] [place] 4 14:04:01 Nasal congestio n 59450575 Active 2023 TATIANA DOLAN PA-C [address],[place] [address], [place], [address] , [facility] - [facility] [place] 4 14:05:26 Allergic rhinitis 30162268 Active 2023 TATIANA DOLAN PA-C [address],[facility] [address], [place], [address] , [facility] - [facility] [place] 4 14:05:34 Seasonal allergic rhinitis 288300605 Active 2023 KIMBERLEE MARIE [address],[facility] 100, [place], [address] , [place] - [facility] [place] 5 11:27:13 Non-aller gic rhinitis 35320071516 1 Active 2023 TATIANA DOLAN PA-C 100 [facility] 100, [place], [address] , [facility] - [facility] [place] 4 14:05:34 Abnormal auditory perceptio n 98610870 Active 2024 JEAN CLAUDE RENTERIA [address],[facility] 100, [place], [address] , [facility] - [facility] [place] 5 11:50:31 Hypertrop hy of nasal turbinate s 21572071 Active 2024 KIMBERLEE MARIE [address],[facility] 100, [place], [address] , [facility] - [facility] [place] 5 11:27:26 Perennial allergic rhinitis 384498362 Active 2024 CHICO CORBIN RN [address],[place] [address], [place], [address] , [facility] - [facility] [place] 5 10:33:32 Problem Notes None recorded. Procedures Surgical History Date Name Laterality Status Provider Name and Address Organization Details Recorded Time 01/31/20 25 Allergy Immunotherapy Injections completed Ashkan Cormier [address],[place] [address], [place], [address], [facility] - [facility] 01/30/2025 10:08:12 01/24/20 25 Allergy Immunotherapy Injections completed CHICO CORBIN RN [address],[place] [facility], [place], [address], [facility] - [facility] 01/23/2025 10:33:55 01/16/20 25 Allergy Immunotherapy Injections completed ANA LILIA STEPHEN [address],[place] [facility], [place], [address], [facility] - [facility] 01/15/2025 15:46:57 12/23/19 25 JMSNasal/Sinus Endoscopy completed KIMBERLEE MARIE [address] [facility] [address] [facility] [place],[address], [address], [facility] - [facility] 12/22/2024 11:26:34 05/29/19 25 Air & Speech Audio with Tymps - 37085, 93645 & 36627 completed JEAN CLAUDE RENTERIA [address] [facility],[place] [address], [place], [address], [facility] - [facility] 05/29/2024 11:49:44 01/03/20 24 Allergy Testing-Full completed ANA LILIA STEPHEN [address], [address], [facility] 01/03/2024 11:15:19 12/27/19 24 Allergy Testing Modified- Quantitative Testing (MQT) Only completed ANA LILIA STEPHEN [address],[place] [facility], [place], [address], [facility] - [facility] 12/27/2023 15:09:31 Imaging Results None recorded. Procedure Notes None recorded. Medical Equipment None Reported. Allergies Allergen ID Allergen Name Allergen Category Reaction Reaction Severity Criticality Documentation Date Start Date Code Code System Note Provider Name and Address Organization Details Recorded Time 37111 penicilli n V potassium medicatio n other Not available Not available 08/24/2023 5 RxNorm React ion: unkno wn, unspe cifie d;; Not Available [facility] 00:50:23 Medications Name Sig Start Date [...] mg tablet 12/26 completed Medicati on ID: [id number] D uration Value: 10 Brand Name: predniso [...] Not Available Not Available Not Available Zackery Pen Crohn's-U lc Colitis-H id Sup Starter 40 mg/0.8 mL subcut kit 11/15 completed Medicati on ID: [id number] D uration Value: 28 Reason: () Brand [...] ICD10 Code Diagnosis IMO Codes Diagnosis Note [id number] ARNEL CISNEROS MD [facility] of [address] [address] 12/22/2024 10:12:22 01/01/2025 20:05:15 Seasonal allergic rhinitis [id number] J30.89 76467029 Hypertroph y of nasal turbinates 97502279 J34.3 32822666 Health Concerns Section Related Observation LastModified by Organization Detai ls LastModified Time None Recorded Concern Status LastModified by Organization Details LastModified Time None Recorded Payers Encounter Date Sequence Insurance Name Policy Number Policy Enamorado Covered Member ID Enamorado Member ID Guarantor Name 12/22/2024 1 [facility] (O) [id number] Tyler Mccann [id number] Tyler Mccann Notes Date Note Type Note Provider Name and Address Organization Details Recorded Time 12/22/2024 text/html ROS as noted in the [...] at rest. He had PFTs done at [facility] within the month that showed partial reversible [...] like to consider Dupixent. ARNEL BUNN MD [address] [place] [address], [address], [facility] - [facility] 12/22/2024 12:29:49
== END 2025-02-16 11:01 | disposition home or self-care (01) ==
PROVIDERS: PCP Nurse Practitioner Family; Visit Provider Physician Assistant
DX: H92.03 Otalgia, bilateral (principal)

== ENCOUNTER → 2025-02-16 09:28 | Outpatient (BNVA) | payer OTHER, SELFPAY | PROVIDERS: PCP Nurse Practitioner Family; Visit Provider Physician Assistant | DX: H92.03 Otalgia, bilateral (principal) | CPT/HCPCS: 99212 ==

== ENCOUNTER 2025-02-21 15:42 | Outpatient (AMB) | payer OTHER, SELFPAY ==
[2025-02-21 15:43] VITALS: BP 130/64; PULSE 99; O2SAT 98; BMI 32.5
--- NOTE | 2025-02-21 15:43 | A.OFFVIS_ITS ---
Vital Signs 02/21/25 15:43 Height 6 ft 3 in Weight 260 lb 6 oz BMI 32.5 BP 130/64 Blood Pressure Location Rt brachial Position Sitting Pulse 99 Pulse Source Pulse Oximeter Pulse Oximetry (%) 98 Oxygen Delivery Method Room Air Intake Visit Reasons: asthma Allergies penicillin V Allergy (Intermediate, Verified 02/21/25 15:46) rash HPI HPI asthma: Details: Tyler is a pleasant 29-year-old male, never smoker, with underlying asthma, HTN and Crohn's disease. The patient reports a history of asthma diagnosed in childhood with symptoms resolving up until recently. He underwent PFT which revealed poorly controlled asthma and had Breo increased to 200 mcg. Unfortunately he continued to report night time awakenings that have been more prevalent over the last few weeks with associated dry cough. Incruse was sent however not covered by insurance and Spiriva sent in its place, which he started and notes overall improvements but continues with dyspnea and intermittent wheezing using Albuterol MDI on a daily basis. Since the last visit he has also placed SCIT on hold, as this may have been contributing to worsening asthma control. He also could not tolerate Singulair, noting increased depression and has since discontinued. Today patient accompanied by mother who reports patient has fainted twice and quite concerned. Denies any precipitating factors other than use of respiratory medications, one occurrence with Breo and one with Spiriva. He does report having heart murmur diagnosis in the past, prior EKG unremarkable. 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 Mother Hypertension Maternal Grandfather Diabetes Stroke Other Anemia Social History Household Members: Friend(s) Housing: Apartment Are you a primary career advisor to a significant other at home: No Do you presently have visiting nurse or other home services: No Alcohol intake: never Patient Tobacco Use Status: Never used Tobacco e-Cigarette/Vaping Use: Never Used Second Hand Smoke Exposure: No service: No Current occupational status: employed Current occupation: [employer], [employer] Cognitive needs: No Hearing needs: No Vision needs: No Review of Systems Const Denies chills, Denies excessive sweating, Denies fever(s) and Denies night sweats Eyes Denies dry eyes, Denies irritation and Denies itchy eyes ENT Reports Normal hearing present and Denies sore throat Card Denies chest pain, Denies chest pain at rest, Denies chest pain with activity, Denies claudication, Denies leg edema, Reports dyspnea on exertion, Denies orthopnea and Denies paroxysmal nocturnal dyspnea Resp Denies chest congestion, Denies excessive phlegm production, Denies pain on inspiration, Denies pain with cough, Reports dyspnea on exertion and Denies stridor Musc Denies myalgias Neuro Reports Normal hearing present Endo Denies excessive sweating Niall/Lymph Denies lymphadenopathy Aller/Immun Denies itchy eyes and Denies seasonal rhinorrhea Physical Exam Vital Signs: Last Vital Signs Pulse 99 02/21/25 15:43 BP 130/64 02/21/25 15:43 Pulse Ox 98 02/21/25 15:43 Oxygen Delivery Method Room Air 02/21/25 15:43 BMI result Body Mass Index 32.5 Const General: cooperative, healthy appearing, comfortable, no acute distress, well developed and alert Nutritional Appearance: obese Orientation/consciousness: patient oriented x3 Limitations: no limitations HEENT Head: Yes normal to inspection, Yes normocephalic and Yes atraumatic Ears: hearing grossly normal bilaterally and external ears normal Eyes General: appearance normal, both eyes and all related structures Eyelids: Yes eyelids normal Sclerae: sclerae normal EOM: EOMs intact bilaterally Neck Neck: Yes normal visual inspection and Yes no lymphadenopathy Lymphatic: no lymphadenopathy noted Chest Chest palpation & inspection: normal inspection of the chest Resp Effort & Inspection: normal respiratory effort, able to speak in complete sentences, no audible wheezes, no cough, no stridor, not tachypneic, no tripod positioning and no use of accessory muscles Auscultation: diminished lung sounds Cardio Jugular venous distension: no JVD Rate: regular rate Rhythm: regular rhythm Skin Other: warm, dry General skin exam: no rashes or lesions noted Neuro General: patient oriented x3 Cranial nerves: Yes Normal hearing present Cognition (Neuro): normal cognition Gait exam (Neuro): Normal gait present Extrem General: Yes normal to inspection, Yes capillary refill normal, Yes no clubbing, cyanosis or edema and Yes no pedal edema Psych Appearance: grossly normal and well kempt Speech and movement: Normal speech and movement present and Clear speech present Affect: normal affect Attitude: cooperative Thought process: Normal thought process present Thought content: Normal thought content present Insight: Good insight present (Psych) Judgement: Good judgement present (Psych) Assessment & Plan Assessment & Plan (1) Asthma: Code(s): J45.909 - Unspecified asthma, uncomplicated Category: Medical Qualifiers: Asthma complication type: uncomplicated Asthma persistence: persistent Asthma severity: moderate Qualified Code(s): J45.40 - Moderate persistent asthma, uncomplicated (2) Environmental allergies: Code(s): Z91.09 - Other allergy status, other than to drugs and biological substances Category: Medical Plan Advised patient to continue Breo, Spiriva and albuterol MDI PRN. Will send nebulizer for home use with albuterol solution. He is aware to call if symptoms change. Will consider biologic and send for RAST, IgE and CBC. In regards to syncopal episodes, encouraged patient to discuss with PCP however with prior h/o heart murmur and ongoing dyspnea will send for echo. All questions were answered and patient is in agreement of plan. Will follow up 4-6 weeks or sooner if needed. Orders: Orders Immunoglobulin E Today Z91.09 - Other allergy status, other than to drugs and biological substances Complete Blood Count Auto Diff Today Z91.09 - Other allergy status, other than to drugs and biological substances Resp Allergy Profile Region I Today Z91.09 - Other allergy status, other than to drugs and biological substances CA echo transthoracic complete Today R06.00 - Dyspnea, unspecified Medications: New albuterol sulfate 2.5 mg (3 mL) inhalation Q4-6H PRN 90 mL 2RF shortness of breath or wheezing Coding Level of Care Code Est Pt Level 4 (84533) Complex EM visit Add On G2211 Diagnoses Moderate persistent asthma without complication J45.40 Asthma complication type: uncomplicated Asthma persistence: persistent Asthma severity: moderate Environmental allergies Z91.09
--- OUTSIDE RECORDS SUMMARY | 2025-02-21 18:44 | XMS_ITS | Continuity of Care Document ---
Author Organization [place] - [facility], Allergy Address [address] [address] Care Team Providers Care Lead Electrician Name Role Phone DANNIESALINAS KIMDULCE Primary Care Provider GIOYVESYARIEL Primary Care Provider Assessment Encounter Date [...] Dose Aware of Vial Test Aware: Notes: [email or web address] Not available 01/30/2025 10:08:22 Plan of Treatment Reminders Order Date Submit Date Provider Last Modified By Organization Details Last Modified Time Details Appointments Establish ed 15 2024 02:15P M ASHLEY MCCANN PA-C Not available Not available Not available Establish ed- Allergy f-up 6mon 2025 10:30A M ARNEL CUNNINGHAM MD Not available Not available Not available Lab None recorded. Referral None recorded. Procedures None recorded. Surgeries None recorded. Imaging None recorded. Medication Orders None recorded. Patient TargetsNo targets recorded. Patient InstructionsNo instructions recorded. Reason for Referral None Reported. Problems Name Problem SNOMED Code Status Onset Date Resolution Date Notes Provider Name and Address Organization Details Recorded Time Impacted cerumen in right ear 67762430815 34282 Active 2016 Impacted cerumen, right ear; Note: Date Diagnosed : 04/29/2016 4:34 PM (H61.21) Not Available [facility] 4 02:13:30 Allergic rhinitis caused by pollen 23597202 Active 2019 Allergy NOS due to pollen; Note: Date Diagnosed : 11/16/2019 11:51 AM (J30.1) Not Available [facility] 4 02:13:08 Closed fracture of nasal bones 69915178 Active 2022 Fracture of nasal bones, initial encounter for closed fracture; Note: Date Diagnosed : 07/21/2022 10:06 AM (S02.2XXA ) Not Available [facility] 4 02:14:15 Impacted cerumen of bilateral ears 80084320149 12570 Active 2023 TATIANA DOLAN PA-C 100 [facility],[place] [address], [facility] [place], [address] , [facility] - [facility] [place] 4 14:04:01 Nasal congestio n 24491174 Active 2023 TATIANA DOLAN PA-C [address] [place] [address],[place] [address], [place], [address] , [facility] - [facility] [place] 4 14:05:26 Allergic rhinitis 10007599 Active 2023 TATIANA DOLAN PA-C 100 [facility],[place] [address], [facility] [place], [address] , [facility] - [facility] [place] 4 14:05:34 Seasonal allergic rhinitis 117797292 Active 2023 KIMBERLEE MARIE 100 [facility],[place] [address], [facility] [place], [address] , [facility] - [facility] [place] 5 11:27:13 Non-aller gic rhinitis 03999559963 1 Active 2023 TATIANA DOLAN PA-C 100 [facility],[place] [address], [facility] [place], [address] , [facility] - [facility] [place] 4 14:05:34 Abnormal auditory perceptio n 66954356 Active 2024 JEAN CLAUDE RENTERIA [address],[place] [address], [facility] [place], [address] , [place] - [facility] [place] 11:50:31 Hypertrop hy of nasal turbinate s 66682613 Active 2024 KIMBERLEE MARIE [address], [facility] [place], [address] , [place] - [facility] [place] 11:27:26 Perennial allergic rhinitis 861519603 Active 2024 CHICO CORBIN RN [address] [facility] [place],[facility] 100, [facility] [place], [address] , [place] [facility] [place] 10:33:32 Problem Notes None recorded. Procedures Surgical History Date Name Laterality Status Provider Name and Address Organization Details Recorded Time 01/31/20 25 Allergy Immunotherapy Injections completed Ashkan Cormier 100 [facility],[address], [address], [place] - [facility] [place] 01/30/2025 10:08:12 01/24/20 25 Allergy Immunotherapy Injections completed CHICO CORBIN RN 100 [facility],[place] [address], , [address], [place] [facility] [place] 01/23/2025 10:33:55 01/16/20 25 Allergy Immunotherapy Injections completed ANA LILIA STEPHEN [address] [facility] [address], , [address], [place] [facility] [place] 01/15/2025 15:46:57 12/23/19 25 JMSNasal/Sinus Endoscopy completed KIMBERLEE MARIE 100 [facility] 100, , [address], [place] [facility] [place] 12/22/2024 11:26:34 05/29/19 25 Air & Speech Audio with Tymps - 54245, 32855 & 76902 completed JEAN CLAUDE RENTERIA [address],[place] [facility], , [address], [place] [facility] [place] 05/29/2024 11:49:44 01/03/20 24 Allergy Testing-Full completed ANA LILIA STEPHEN 100 [facility] 100, , [address], [facility] 01/03/2024 11:15:19 12/27/19 24 Allergy Testing Modified- Quantitative Testing (MQT) Only completed ANA LILIA STEPHEN 100 [facility] 100, , [address], [facility] 12/27/2023 15:09:31 Imaging Results None recorded. [...] unkno wn, unspe cifie d;; Not Available [facility] 00:50:23 Medications Name Sig Start Date Stop [...] mg tablet 12/26 completed Medicati on ID: [id number] D uration Value: 10 Brand Name: predniso [...] subcut kit 11/15 completed Medicati on ID: [id number] D uration Value: 28 Reason: () Brand [...] ICD10 Code Diagnosis IMO Codes Diagnosis Note [id number] LUZMARIA WADDELL, [facility] Allergy 100 [facility] 100 [place] [address] 01/15/2025 15:11:17 01/15/2025 15:47:40 Perennial allergic rhinitis 941945169 J30.89 [id number] CHICO CORBIN RN Allergy [address] [place] [address],[facility] 100 [place] [address] 01/23/2025 08:52:47 01/23/2025 10:35:34 Perennial allergic rhinitis 379570959 J30.89 [id number] AMAYA SHARMA, [facility] Allergy 100 [facility] 100 [place] [address] 01/30/2025 08:54:34 01/30/2025 10:08:49 Perennial allergic rhinitis 445953561 J30.89 Health Concerns Section Related Observation LastModified by Organization Detai ls LastModified Time None Recorded Concern Status LastModified by Organization Details LastModified Time None Recorded Payers Encounter Date Sequence Insurance Name Policy Number Policy Enamorado Covered Member ID Enamorado Member ID Guarantor Name 01/30/2025 1 [facility] (O) [id number] Tyler Mccann [id number] Tyler Mccann
--- OUTSIDE RECORDS SUMMARY | 2025-02-21 18:44 | XMS_ITS | Data Portability ---
Author Organization [place] - [facility], Allergy Address [address] [address] Care Team Providers Care Assembler Product Name Role Phone YARIEL PANDEY Primary Care Provider YARIEL VIZCARRA Primary Care Provider [phone] Assessment Encounter Date Assessment Date Assessment LastModified [...] discussed the risk of anaphylaxis with this. [email or web address] Not available 05/29/2024 12:35:44 12/22/2024 12/22/2024 29-year-old [...] he will call/message us when it expires. [email or web address] Not available 12/22/2024 11:46:58 01/15/2025 01/15/2025 Visit With: Luzmaria Bardales Use of Antihistamines: No If yes: Vial Test Yes Change in medications: No If yes Increase in asthma symptoms If yes, inhaler use: Reaction to last injections: If yes: Allergy Symptoms: Other: Missed: Dose Aware of Vial Test Aware: Notes: [email or web address] Not available 01/15/2025 15:47:05 01/23/2025 01/23/2025 Visit With: Chcio Corbin RN Use of Antihistamines: No If [...] mL injection , auto-inje ctor 2024 025 [facility]/Pharmacy #[id number], [address] [place], [address], 05/29/2024 12:32:14 azelastin e 137 mcg (0.1 %) nasal spray 2024 025 [facility]/Pharmacy #[id number], [address] [place], [address], 05/29/2024 12:34:07 Patient TargetsNo targets recorded. Patient Instructions Encounter Date Encounter Id Patient Instructions Last Modified By Organization Details Last Modified Time 01/15/2025 [id number] allergy shots: care instructions [email or web address] Not available 01/15/2025 15:47:33 Reason for Referral [...] Recorded Time Impacted cerumen in right ear [id number] 93166 Active 2016 Impacted cerumen, right ear; Note: Date Diagnosed : 04/29/2016 4:34 PM (H61.21) Not Available [facility] 4 02:13:30 Allergic rhinitis caused by pollen 27812772 Active 2019 Allergy NOS due to pollen; Note: Date Diagnosed : 11/16/2019 11:51 AM (J30.1) Not Available [facility] 4 02:13:08 Closed fracture of nasal bones 11301118 Active 2022 Fracture of nasal bones, initial encounter for closed fracture; Note: Date Diagnosed : 07/21/2022 10:06 AM (S02.2XXA ) Not Available [facility] 4 02:14:15 Impacted cerumen of bilateral ears 99002972265 92231 Active 2023 TATIANA DOLAN PA-C [address], [place], [address] , [place] - [facility] [place] 4 14:04:01 Nasal congestio n 57961741 Active 2023 TATIANA DOLAN PA-C [address], [place], [address] , [place] [facility] [place] 4 14:05:26 Allergic rhinitis 69231403 Active 2023 TATIANA DOLAN PA-C [address], [place], [address] , [place] [facility] [place] 4 14:05:34 Seasonal allergic rhinitis 966120783 Active 2023 KIMBERLEE MARIE [address], [place], [address] , [place] [facility] [place] 5 11:27:13 Non-aller gic rhinitis 50469227987 1 Active 2023 TATIANA DOLAN PA-C [address], [place], [address] , [place] [facility] [place] 4 14:05:34 Abnormal auditory perceptio n 40478763 Active 2024 JEAN CLAUDE RENTERIA [address], [place], [address] , [place] [facility] [place] 5 11:50:31 Hypertrop hy of nasal turbinate s 72815606 Active 2024 KIMBERLEE MARIE [address], [place], [address] , [place] [facility] [place] 5 11:27:26 Perennial allergic rhinitis 819727048 Active 2024 CHICO CORBIN RN [address], [place], [address] , [place] [facility] [place] 5 10:33:32 Problem Notes None recorded. Procedures Surgical History Date Name Laterality Status Provider Name and Address Organization Details Recorded Time 01/31/20 25 Allergy Immunotherapy Injections completed Ashkan Cormier 100 [facility],[address], [address], [facility] 01/30/2025 10:08:12 01/24/20 25 Allergy Immunotherapy Injections completed CHICO CORBIN RN 100 [facility],[address], [address], [facility] 01/23/2025 10:33:55 01/16/20 25 Allergy Immunotherapy Injections completed ANA LILIA STEPHEN 100 [facility],[address], [address], [facility] 01/15/2025 15:46:57 12/23/19 25 JMSNasal/Sinus Endoscopy completed KIMBERLEE MARIE 100 [facility],[address], [address], [facility] 12/22/2024 11:26:34 05/29/19 25 Air & Speech Audio with Tymps - 16461, 29593 & 51993 completed JEAN CLAUDE RENTERIA 100 [facility],[address], [address], [facility] 05/29/2024 11:49:44 01/03/20 24 Allergy Testing-Full completed ANA LILIA STEPHEN 100 [facility],[address], [address], [facility] 01/03/2024 11:15:19 12/27/19 24 Allergy Testing Modified- Quantitative Testing (MQT) Only completed ANA LILIA STEPHEN 100 [facility],[address], [address], [facility] 12/27/2023 15:09:31 Imaging Results None recorded. Procedure Notes None recorded. Medical Equipment None Reported. Allergies Allergen ID Allergen Name Allergen Category Reaction Reaction Severity Criticality Documentation Date Start Date Code Code System Note Provider Name and Address Organization Details Recorded Time 48225 penicilli n V potassium medicatio n other [...] mg tablet 12/26 completed Medicati on ID: [id number] D uration Value: 10 Brand Name: predniso ne Send Method: E-Prescr ibed Sub s Allowed: subs OK Speci al Instruct ion: TAKE 1 TABLET BY MOUTH EVERY DAY FOR 10 DAYS Med ication enIsrael me: predniso ne Not Available Not Available [...] subcut kit 11/15 completed Medicati on ID: [id number] D uration Value: 28 Reason: () Brand Name: Zackery Pen Crohns-U C-HS Start Se nd Method: [...] Updated DateTime 05/29/2024 190.5 cm 29.4 kg/m2 719515.21 g Dianna Cantu [facility] 05/29/2024 11:17:54 Date Recorded Body height Heart rate Systolic And Diastolic Provider Name and Address Organization Details Last Updated DateTime 01/15/2025 190.5 cm 77 /min 138/91 mm[Hg] LUZMARIA BARDALES , [facility] [address], [address], [place] - [facility] 01/15/2025 15:23:07 Social History None recorded. Functional Status None recorded. Mental Status None recorded. Family History Nothing Reported. Medical History Condition Response GERD/Reflux Y Past Encounters Encounter ID Performer Location Encounter Start Date Encounter Closed Date Diagnosis/Indication Diagnosis SNOMED-CT Code Diagnosis ICD10 Code Diagnosis IMO Codes Diagnosis Note [id number] TATIANA DOLAN PA-C [facility] [address] [address] 12/06/2023 13:31:09 12/06/2023 13:55:51 Nasal congestion 68635601 R09.81 [id number] LUZMARIA BARDALES [facility] Allergy [address] [place] [address] 12/27/2023 14:12:56 12/27/2023 15:26:25 Allergic rhinitis 72891868 J30.9 [id number] LUZMARIA BARDALES [facility] Allergy [address] [place] [address] 01/03/2024 10:16:10 01/03/2024 10:17:15 Allergic rhinitis 13197778 J30.9 [id number] TATIANA DOLAN PA-C [facility] [address] [address] 05/29/2024 11:04:38 05/29/2024 12:04:22 Nasal congestion 93433805 R09.81 Allergic rhinitis 564722 04 J30.89 Abnormal a uditory perception 09502924 H93.299 Right Ear:Normal hearing with excellent speech discrimina tion.Type A tympanogra m.Left Ear:Normal hearing with excellent speech discrimina tion.Type A tympanogra m. [id number] ARNEL CISNEROS MD [facility] [address] [address] 12/22/2024 10:12:22 01/01/2025 20:05:15 Seasonal allergic rhinitis 899392574 J30.89 50693625 Hypertroph y of nasal turbinates 27246895 J34.3 37356456 [id number] LUZMARIA BARDALES [facility] [address] [place] [address] 01/15/2025 15:11:17 01/15/2025 15:47:40 Perennial allergic rhinitis 407142975 J30.89 [id number] CHICO CORBIN RN Allergy [address] [place] [address], [address] [place] [address] 01/23/2025 08:52:47 01/23/2025 10:35:34 Perennial allergic rhinitis 377940956 J30.89 [id number] AMAYA SHARMA, ANA LILIA Allergy 100 [facility], [address] 100 [facility] [address] 01/30/2025 08:54:34 01/30/2025 10:08:49 Perennial allergic rhinitis 599227881 J30.89 Health Concerns Section Related Observation LastModified by Organization Detai ls LastModified Time None Recorded Concern Status LastModified by Organization Details LastModified Time None Recorded Advance Directives Directive None Recorded Payers Insurance Date Sequence Insurance Name Policy Number Policy Enamorado Covered Member ID Enamorado Member ID Guarantor Name 01/30/2025 1 [facility] [id number] Tyler Flores Mccann [id number] Tyler L Mccann 05/26/2024 2 [facility] (O) Tyler Flores Mccann [id number] Tyler Flores Mccann Notes Date Note Type Note Provider [...] a few years. ARNEL BUNN MD 100 [facility],[address], [address], [facility] - [facility] 05/29/2024 17:08:31 12/22/2024 text/html ROS as [...] at rest. He had PFTs done at [facility] within the month that showed partial [...] like to consider Dupixent. ARNEL BUNN MD [address] [place] [address], [address], [facility] - [facility] 12/22/2024 12:29:49
--- OUTSIDE RECORDS SUMMARY | 2025-02-21 18:44 | XMS_ITS | Continuity of Care Document ---
Author Organization [place] - [facility], Allergy Address [address] [address] Care Team Providers Care Robot Technician Name Role Phone DANNIEYARIEL Primary Care Provider [phone] GIOYVESYARIEL Primary Care Provider Assessment Encounter Date [...] Test Aware: Notes: Not available 01/15/2025 15:47:05 Plan of Treatment [...] By Organization Details Last Modified Time 01/15/2025 [id number] allergy shots: care instructions Not available 01/15/2025 15:47:33 Reason for Referral None Reported. Problems Name Problem SNOMED Code Status Onset Date Resolution Date Notes Provider Name and Address Organization Details Recorded Time Impacted cerumen in right ear 23851270282 95566 Active 2016 Impacted cerumen, right ear; Note: Date Diagnosed : 04/29/2016 4:34 PM (H61.21) Not Available [facility] 4 02:13:30 Allergic rhinitis caused by pollen 02988648 Active 2019 Allergy NOS due to pollen; Note: Date Diagnosed : 11/16/2019 11:51 AM (J30.1) Not Available [facility] 4 02:13:08 Closed fracture of nasal bones 58625782 Active 2022 Fracture of nasal bones, initial encounter for closed fracture; Note: Date Diagnosed : 07/21/2022 10:06 AM (S02.2XXA ) Not Available [facility] 4 02:14:15 Impacted cerumen of bilateral ears 31987878147 65935 Active 2023 TATIANA DOLAN PA-C [address] [facility], [place], [address] , [facility] - [facility] 4 14:04:01 Nasal congestio n 39790630 Active 2023 TATIANA DOLAN PA-C 100 [facility],[address], [place], [address] , [facility] - [facility] [place] 4 14:05:26 Allergic rhinitis 78973771 Active 2023 TATIANA DOLAN PA-C [address] [facility], [place], [address] , [facility] - [facility] [place] 4 14:05:34 Seasonal allergic rhinitis 692675780 Active 2023 KIMBERLEE MARIE [address], [place], [address] , [facility] - [facility] [place] 5 11:27:13 Non-aller gic rhinitis 29951578529 1 Active 2023 TATIANA DOLAN PA-C [address], [place], [address] , [place] - [facility] [place] 4 14:05:34 Abnormal auditory perceptio n 63189639 Active 2024 JEAN CLAUDE RENTERIA 100 [facility],[place] [address], [facility] [place], [address] , [place] - [facility] [place] 5 11:50:31 Hypertrop hy of nasal turbinate s 24656922 Active 2024 KIMBERLEE MARIE 100 [facility],[place] [address], [facility] [place], [address] , [facility] - [facility] [place] 5 11:27:26 Perennial allergic rhinitis 646683877 Active 2024 CHICO CORBIN RN 100 [facility],[place] [address], [facility] [place], [address] , [place] [facility] [place] 5 10:33:32 Problem Notes None recorded. Procedures Surgical History Date Name Laterality Status Provider Name and Address Organization Details Recorded Time 01/31/20 25 Allergy Immunotherapy Injections completed Ashkan Cormier 100 [facility],[address], [address], [place] - [facility] [place] 01/30/2025 10:08:12 01/24/20 25 Allergy Immunotherapy Injections completed CHICO CORBIN RN 100 [facility],[address], [address], [facility] - [facility] [place] 01/23/2025 10:33:55 01/16/20 25 Allergy Immunotherapy Injections completed ANA LILIA STEPHEN 100 [facility],[address], [address], [place] [facility] [place] 01/15/2025 15:46:57 12/23/19 25 JMSNasal/Sinus Endoscopy completed KIMBERLEE MARIE 100 [facility],[address], [address], [facility] - [facility] [place] 12/22/2024 11:26:34 05/29/19 25 Air & Speech Audio with Tymps - 15754, 09909 & 68089 completed JEAN CLAUDE RENTERIA 100 [facility],[address], [address], [facility] - [facility] 05/29/2024 11:49:44 01/03/20 24 Allergy Testing-Full completed ANA LILIA STEPHEN 100 [facility], [place], [address], [facility] 01/03/2024 11:15:19 12/27/19 24 Allergy Testing Modified- Quantitative Testing (MQT) Only completed ANA LILIA STEPHEN 100 [facility], [place], [address], [facility] 12/27/2023 15:09:31 Imaging Results None recorded. Procedure Notes None recorded. Medical Equipment None Reported. Allergies Allergen ID Allergen Name Allergen Category Reaction Reaction Severity Criticality Documentation Date Start Date Code Code System Note Provider Name and Address Organization Details Recorded Time 28958 penicilli n V potassium medicatio n other Not available Not available 08/24/2023 5 RxNorm React ion: unkno wn, unspe cifie d;; Not Available [facility] 00:50:23 Medications Name Sig Start Date [...] mg tablet 12/26 completed Medicati on ID: [id number] D uration Value: 10 Brand Name: predniso [...] subcut kit 11/15 completed Medicati on ID: [id number] D uration Value: 28 Reason: () Brand [...] /min 138/91 mm[Hg] ANA LILIA STEPHEN 100 [facility],[address], [address], [place] - [facility] 01/15/2025 15:23:07 Social History None recorded. Functional Status None recorded. Mental Status None recorded. Family History Nothing Reported. Medical History Condition Response GERD/Reflux Y Past Encounters Encounter ID Performer Location Encounter Start Date Encounter Closed Date Diagnosis/Indication Diagnosis SNOMED-CT Code Diagnosis ICD10 Code Diagnosis IMO Codes Diagnosis Note [id number] ARNEL CISNEROS MD [facility] 100 [place] [address] 12/22/2024 10:12:22 01/01/2025 20:05:15 Seasonal allergic rhinitis 416577308 J30.89 57083765 Hypertroph y of nasal turbinates 85476444 J34.3 28664939 [id number] ANA LILIA STEPHEN Allergy 100 [facility] [address] [place] [address] 01/15/2025 15:11:17 01/15/2025 15:47:40 Perennial allergic rhinitis 931096495 J30.89 Health Concerns Section Related Observation LastModified by Organization Detai ls LastModified Time None Recorded Concern Status LastModified by Organization Details LastModified Time None Recorded Payers Encounter Date Sequence Insurance Name Policy Number Policy Enamorado Covered Member ID Enamorado Member ID Guarantor Name 01/15/[address] [facility] (HMO) [id number] Tyler Mccann [id number] Tyler Mccann
--- OUTSIDE RECORDS SUMMARY | 2025-02-21 18:44 | XMS_ITS | Continuity of Care Document ---
Author Organization [place] - [facility], [facility] Address 100 [place] [address] Care Team Providers Care Application Tester Name Role Phone DANNIE, YARIEL Primary Care [...] he will call/message us when it expires. [email or web address] Not available 12/22/2024 11:46:58 Plan of Treatment [...] Recorded Time Impacted cerumen in right ear 81580165121 58946 Active 2016 Impacted cerumen, right ear; Note: Date Diagnosed : 04/29/2016 4:34 PM (H61.21) Not Available [facility] 4 02:13:30 Allergic rhinitis caused by pollen 92696736 Active 2019 Allergy NOS due to pollen; Note: Date Diagnosed : 11/16/2019 11:51 AM (J30.1) Not Available [facility] 4 02:13:08 Closed fracture of nasal bones 52494566 Active 2022 Fracture of nasal bones, initial encounter for closed fracture; Note: Date Diagnosed : 07/21/2022 10:06 AM (S02.2XXA ) Not Available [facility] 4 02:14:15 Impacted cerumen of bilateral ears 86920822339 09312 Active 2023 TATIANA DOLAN PA-C [address], [place], [place], [address] , [facility] - [facility] [place] 4 14:04:01 Nasal congestio n 61556086 Active 2023 TATIANA DOLAN PA-C [address], [place], [address] , [facility] - [facility] [place] 4 14:05:26 Allergic rhinitis 54540562 Active 2023 TATIANA DOLAN PA-C [address], [place], [place], [address] , [facility] - [facility] [place] 4 14:05:34 Seasonal allergic rhinitis 577654778 Active 2023 KIMBERLEE MARIE 100 [facility],[address], [place], [place], [address] , [facility] - [facility] [place] 5 11:27:13 Non-aller gic rhinitis 94562922408 1 Active 2023 TATIANA DOLAN PA-C [address],[facility], [place], [place], [address] , [facility] - [facility] [place] 4 14:05:34 Abnormal auditory perceptio n 29290689 Active 2024 JEAN CLAUDE RENTERIA [address], [place], [place], [address] , [facility] - [facility] [place] 5 11:50:31 Hypertrop hy of nasal turbinate s 25361402 Active 2024 KIMBERLEE MARIE [address], [place], [place], [address] , [facility] - [facility] [place] 5 11:27:26 Perennial allergic rhinitis 677484125 Active 2024 CHICO CORBIN RN [address], [place], [address] , [place] - [facility] [place] 10:33:32 Problem Notes None recorded. Procedures Surgical History Date Name Laterality Status Provider Name and Address Organization Details Recorded Time 01/31/20 25 Allergy Immunotherapy Injections completed Ashkan Cormier 100 [facility],[address], [address], [facility] 01/30/2025 10:08:12 01/24/20 25 Allergy Immunotherapy Injections completed CHICO CORBIN RN 100 [facility],[address], [address], [facility] 01/23/2025 10:33:55 01/16/20 25 Allergy Immunotherapy Injections completed ANA LILIA STEPHEN [address] [place] [address],[address], [address], [facility] 01/15/2025 15:46:57 12/23/19 25 JMSNasal/Sinus Endoscopy completed KIMBERLEE MARIE 100 [facility],[address], [address], [facility] 12/22/2024 11:26:34 05/29/19 25 Air & Speech Audio with Tymps - 08733, 94914 & 88628 completed JEAN CLAUDE RENTERIA 100 [facility],[address], [address], [facility] 05/29/2024 11:49:44 01/03/20 24 Allergy Testing-Full completed ANA LILIA STEPHEN [address] [place] [address],[address], [address], [facility] 01/03/2024 11:15:19 12/27/19 24 Allergy Testing Modified- Quantitative Testing (MQT) Only completed ANA LILIA STEPHEN [address] [place] [address],[address], [address], [facility] 12/27/2023 15:09:31 Imaging Results None recorded. Procedure Notes None recorded. Medical Equipment None Reported. Allergies Allergen ID Allergen Name Allergen Category Reaction Reaction Severity Criticality Documentation Date Start Date Code Code System Note Provider Name and Address Organization Details Recorded Time 79270 penicilli n V potassium medicatio n other Not available Not available 08/24/202335868 5 RxNorm React ion: unkno wn, unspe cifie d;; Not Available [facility] 00:50:23 Medications Name Sig Start [...] mg tablet 12/26 completed Medicati on ID: [id number] D uration Value: 10 Brand Name: predniso [...] completed Not Available Not Available Not Available Billyira Pen Crohn's-U lc Colitis-H id Sup Starter 40 mg/0.8 mL subcut kit 11/15 completed Medicati on ID: [id number] D uration Value: 28 Reason: () Brand [...] ICD10 Code Diagnosis IMO Codes Diagnosis Note [id number] ARNEL CISNEROS MD [facility] of [address] [address] 12/22/2024 10:12:22 01/01/2025 20:05:15 Seasonal allergic rhinitis 657134954 J30.89 87315167 Hypertroph y of nasal turbinates 63175723 J34.3 00797559 Health Concerns Section Related Observation LastModified by Organization [facility] LastModified Time None Recorded Concern Status LastModified by Organization Details LastModified Time None Recorded Payers Encounter Date Sequence Insurance Name Policy Number Policy Enamorado Covered Member ID Enamorado Member ID Guarantor Name 12/22/2024 1 [facility] (O) [id number] Tyler Mccann [id number] Tyler Mccann Notes Date Note Type [...] at rest. He had PFTs done at [facility] within the month that showed partial [...] like to consider Dupixent. ARNEL BUNN MD [address] [place] [address], [address], [facility] - [facility] 12/22/2024 12:29:49
--- OUTSIDE RECORDS SUMMARY | 2025-02-21 18:44 | XMS_ITS | Continuity of Care Document ---
Author Organization [place] - [facility], Allergy Address [address] [address] Care Team Providers Care [employer] Foreign Language Tutor Name Role Phone DANNIEYARIEL Primary Care Provider GIOYVESYARIEL Primary Care Provider [...] Recorded Time Impacted cerumen in right ear [id number] 36759 Active 2016 Impacted cerumen, right ear; Note: Date Diagnosed : 04/29/2016 4:34 PM (H61.21) Not Available [facility] 4 02:13:30 Allergic rhinitis caused by pollen 05972415 Active 2019 Allergy NOS due to pollen; Note: Date Diagnosed : 11/16/2019 11:51 AM (J30.1) Not Available [facility] 4 02:13:08 Closed fracture of nasal bones 69669864 Active 2022 Fracture of nasal bones, initial encounter for closed fracture; Note: Date Diagnosed : 07/21/2022 10:06 AM (S02.2XXA ) Not Available [facility] 4 02:14:15 Impacted cerumen of bilateral ears 48250079918 72906 Active 2023 TATIANA DOLAN PA-C [address], [place], [address] , [facility] [place] 4 14:04:01 Nasal congestio n 53219006 Active 2023 TATIANA DOLAN PA-C [address], [place], [address] , [facility] - [facility] [place] 4 14:05:26 Allergic rhinitis 83687932 Active 2023 TATIANA DOLAN PA-C [address], [place], [address] , [facility] - [facility] [place] 4 14:05:34 Seasonal allergic rhinitis 919776070 Active 2023 KIMBERLEE MARIE [address], [place], [address] , [place] [facility] [place] 5 11:27:13 Non-aller gic rhinitis 72351528495 1 Active 2023 TATIANA DOLAN PA-C [address], [place], [address] , [place] [facility] [place] 4 14:05:34 Abnormal auditory perceptio n 56518396 Active 2024 JEAN CLAUDE RENTERIA 100 [facility],[address] [address], [place], [address] , [facility] - [facility] [place] 5 11:50:31 Hypertrop hy of nasal turbinate s 05364079 Active 2024 KIMBERLEE MARIE 100 [facility],[address] [address], [place], [address] , [facility] - [facility] [place] 5 11:27:26 Perennial allergic rhinitis 139015617 Active 2024 CHICO CORBIN RN 100 [facility],[address] [address], [place], [address] , [facility] - [facility] [place] 5 10:33:32 Problem Notes None recorded. Procedures Surgical History Date Name Laterality Status Provider Name and Address Organization Details Recorded Time 01/31/20 25 Allergy Immunotherapy Injections completed Ashkan Cormier 100 [facility],[address], [address], [facility] - [facility] 01/30/2025 10:08:12 01/24/20 25 Allergy Immunotherapy Injections completed CHICO CORBIN RN 100 [facility],[address], [address], [facility] - [facility] 01/23/2025 10:33:55 01/16/20 25 Allergy Immunotherapy Injections completed ANA LILIA STEPHEN 100 [facility],[address], [address], [facility] - [facility] 01/15/2025 15:46:57 12/23/19 25 JMSNasal/Sinus Endoscopy completed KIMBERLEE MARIE 100 [facility],[address], [address], [facility] - [facility] [place] 12/22/2024 11:26:34 05/29/19 25 Air & Speech Audio with Tymps - 52063, 73516 & 78086 completed JEAN CLAUDE RENTERIA 100 [facility],[address], [address], [facility] - [facility] [place] 05/29/2024 11:49:44 01/03/20 24 Allergy Testing-Full completed RYLEY JEFFY [facility] 100 [facility],[address], [address], [facility] 01/03/2024 11:15:19 12/27/19 24 Allergy Testing Modified- Quantitative Testing (MQT) Only completed RYLEYKIMBERLY BARDALES [facility] 100 [facility],[address] [address], [place], [address], [facility] 12/27/2023 15:09:31 Imaging Results None recorded. Procedure Notes None recorded. Medical Equipment None Reported. Allergies Allergen ID Allergen Name Allergen Category Reaction Reaction Severity Criticality Documentation Date Start Date Code Code System Note Provider Name and Address Organization Details Recorded Time 80201 penicilli n V potassium medicatio n other Not available Not available 08/24/202359950 5 RxNorm React ion: unkno wn, unspe cifie d;; Not Available [facility] 00:50:23 Medications Name Sig Start Date Stop [...] mg tablet 12/26 completed Medicati on ID: [id number] D uration Value: 10 Brand Name: predniso [...] subcut kit 11/15 completed Medicati on ID: [id number] D uration Value: 28 Reason: () Brand [...] ICD10 Code Diagnosis IMO Codes Diagnosis Note 28120 ANA LILIA STEPHEN Allergy 100 [facility], [address] [place] [address] 01/15/2025 15:11:17 01/15/2025 15:47:40 Perennial allergic rhinitis 931069852 J30.89 [id number] CHICO CORBIN RN Allergy 100 [facility], [address] [place] [address] 01/23/2025 08:52:47 01/23/2025 10:35:34 Perennial allergic rhinitis 044326967 J30.89 Health Concerns Section Related Observation LastModified by Organization Detai ls LastModified Time None Recorded Concern Status LastModified by Organization Details LastModified Time None Recorded Payers Encounter Date Sequence Insurance Name Policy Number Policy Enamorado Covered Member ID Enamorado Member ID Guarantor Name 01/23/2025 1 [facility] (O) [id number] Tyler Mccann [id number] Tyler Mccann
== END 2025-02-21 16:08 | disposition home or self-care (01) ==
LOC: HO.HPSW 15:43
PROVIDERS: PCP Nurse Practitioner Family; Visit Provider Nurse Practitioner Family
DX: J45.40 Moderate persistent asthma, uncomplicated (principal); Z91.09 Other allergy status, other than to drugs and biological substances
CPT/HCPCS: 99214

== ENCOUNTER → 2025-02-21 15:42 | Outpatient (BNVA) | payer OTHER, SELFPAY | PROVIDERS: PCP Nurse Practitioner Family; Visit Provider Nurse Practitioner Family | DX: J45.40 Moderate persistent asthma, uncomplicated (principal); R06.02 Shortness of breath; Z91.09 Other allergy status, other than to drugs and biological substances | CPT/HCPCS: 99212 ==

== ENCOUNTER 2025-03-01 08:10 | Outpatient (AMB) | payer OTHER, SELFPAY ==
[2025-03-01 08:20] VITALS: BP 122/76; PULSE 78; O2SAT 100; BMI 32.5
--- NOTE | 2025-03-01 08:20 | MHC.OFFWIV ---
Intake Vital Signs 03/01/25 08:20 Height 6 ft 3 in Weight 260 lb BMI 32.5 BP 122/76 Blood Pressure Location Lt brachial Position Sitting Pulse 78 Pulse Source Pulse Oximeter Pulse Oximetry (%) 100 Oxygen Delivery Method Room Air Intake Visit Reasons: EP-chest pain Intake Note: Patient presents c/o right side chest pain that started about 30 minutes ago while he was at work. Patient states it feels tight, pressure & he has had this before & was told it was a pulled muscle. Patient Tobacco Use Status: Never used Tobacco Allergies penicillin V Allergy (Intermediate, Verified 03/01/25 08:22) rash Do you need a note to return to daycare/school/sports/work: Yes HPI HPI Comments History of Present Illness Details 29-year-old male presents to the walk-in clinic with acute onset right-sided chest pain that began ~30 minutes ago while at work. Describes pain as tightness/pressure. States he has had similar episodes in the past and was previously told it was a pulled muscle. Reports a similar event in 2023 requiring ED evaluation at [facility]; ECG and chest X-ray at that time were unremarkable. He has a history of asthma and uses Breo daily as maintenance therapy. Denies shortness of breath, wheezing, headache, dizziness, fever, chills, nausea, or vomiting. No personal cardiac history. 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 Mother Hypertension Maternal Grandfather Diabetes Stroke Other Anemia Social History Household Members: Friend(s) Housing: Apartment Are you a primary home care physical therapist to a significant other at home: No Do you presently have visiting nurse or other home services: No Alcohol intake: never Patient Tobacco Use Status: Never used Tobacco e-Cigarette/Vaping Use: Never Used Second Hand Smoke Exposure: No service: No Current occupational status: employed Current occupation: [employer] Cognitive needs: No Hearing needs: No Vision needs: No Review of Systems Const All systems reviewed & are unremarkable except as noted in HPI and below Physical Exam Vital Signs: Last Vital Signs Pulse 78 03/01/25 08:20 BP 122/76 03/01/25 08:20 Pulse Ox 100 03/01/25 08:20 Oxygen Delivery Method Room Air 03/01/25 08:20 BMI result Body Mass Index 32.5 Const General: no acute distress Nutritional Appearance: well nourished Orientation/consciousness: patient oriented x3 HEENT Head: Yes normocephalic Ears: external ears normal and TM abnormal with fluid behind the TM bilateral General nose exam: Normal external nose present and No nasal discharge present Face and sinus: Yes sinuses nontender Mouth: moist mucous membranes Throat: Yes uvula midline Chest Other: Tenderness to palpation over right anterior chest wall; no swelling or deformity noted. Resp Effort & Inspection: normal respiratory effort and able to speak in complete sentences Auscultation: clear to auscultation bilaterally, no crackles, no rales, no rhonchi and no wheezes Cardio Heart sounds: S1 normal heart sound present and S2 normal heart sound present Neuro General: patient oriented x3, gait normal and moves all extremities Psych Speech and movement: Normal speech and movement present Assessment & Plan Assessment & Plan (1) Chest pain: Code(s): R07.9 - Chest pain, unspecified Plan: Recurrent pattern consistent with prior ?pulled muscle?; current exam benign and patient without respiratory or cardiac red-flags. ECG in the office Unremarkable. Warm compresses to affected area; avoid strenuous upper-body activity for several days. Educate on red-flag symptoms requiring immediate ED evaluation: worsening chest pain, SOB, dizziness/syncope, radiation of pain, diaphoresis. Consider CXR if pain persists. Follow up with PCP. Orders: Orders AMB EKG-In Office Today R07.9 - Chest pain, unspecified Coding Level of Care Code Est Pt Level 4 (90419) Diagnoses Chest pain R07.9 Time Spent (min) 20
--- OUTSIDE RECORDS SUMMARY | 2025-03-01 08:38 | XMS_ITS | Continuity of Care Document ---
Author Organization [place] - [facility], Allergy Address [address] [address] Care Team Providers Care Rn Utilization Management Um Name Role Phone DANNIEYARIEL Primary Care Provider [phone] GIOYVESYARIEL Primary Care Provider [phone] Assessment Encounter Date Assessment Date Assessment LastModified [...] By Organization Details Last Modified Time 01/15/2025 70581 allergy shots: care instructions [email or web address] Not available 01/15/2025 15:47:33 Reason for Referral None Reported. Problems Name Problem SNOMED Code Status Onset Date Resolution Date Notes Provider Name and Address Organization Details Recorded Time Impacted cerumen in right ear [id number] 52012 Active 2016 Impacted cerumen, right ear; Note: Date Diagnosed : 04/29/2016 4:34 PM (H61.21) Not Available [facility] 4 02:13:30 Allergic rhinitis caused by pollen 57158302 Active 2019 Allergy NOS due to pollen; Note: Date Diagnosed : 11/16/2019 11:51 AM (J30.1) Not Available [facility] 4 02:13:08 Closed fracture of nasal bones 81121103 Active 2022 Fracture of nasal bones, initial encounter for closed fracture; Note: Date Diagnosed : 07/21/2022 10:06 AM (S02.2XXA ) Not Available [facility] 4 02:14:15 Impacted cerumen of bilateral ears 50132116153 18811 Active 2023 TATIANA DOLAN PA-C [address] [facility], [place], [address] , [facility] - [facility] 4 14:04:01 Nasal congestio n 02210342 Active 2023 TATIANA DOLAN PA-C [address], [place], [address] , [facility] - [facility] [place] 4 14:05:26 Allergic rhinitis 51733135 Active 2023 TATIANA DOLAN PA-C [address] [facility], [place], [address] , [facility] - [facility] [place] 4 14:05:34 Seasonal allergic rhinitis 394670175 Active 2023 KIMBERLEE MARIE [address], [place], [address] , [facility] - [facility] [place] 5 11:27:13 Non-aller gic rhinitis 38673691738 1 Active 2023 TATIANA DOLAN PA-C [address], [place], [address] , [place] [facility] [place] 4 14:05:34 Abnormal auditory perceptio n 42976586 Active 2024 JEAN CLAUDE RENTERIA 100 [facility],[place] [address] [address], [facility] [place], [address] , [place] [facility] [place] 5 11:50:31 Hypertrop hy of nasal turbinate s 03271638 Active 2024 KIMBERLEE MARIE 100 [facility],[place] [address], [facility] [place], [address] , [facility] - [facility] [place] 5 11:27:26 Perennial allergic rhinitis 219895151 Active 2024 CHICO CORBIN RN 100 [facility],[place] [address], [facility] [place], [address] , [place] [facility] [place] 5 10:33:32 Problem Notes None recorded. Procedures Surgical History Date Name Laterality Status Provider Name and Address Organization Details Recorded Time 01/31/20 25 Allergy Immunotherapy Injections completed Ashkan Cormier 100 [facility],[address], [address], [place] [facility] [place] 01/30/2025 10:08:12 01/24/20 25 Allergy Immunotherapy Injections completed CHICO CORBIN RN 100 [facility],[address], [address], [facility] - [facility] [place] 01/23/2025 10:33:55 01/16/20 25 Allergy Immunotherapy Injections completed ANA LILIA STEPHEN 100 [facility],[address], [address], [place] [facility] [place] 01/15/2025 15:46:57 12/23/19 25 JMSNasal/Sinus Endoscopy completed KIMBERLEE MARIE 100 [facility],[address], [address], [facility] - [facility] [place] 12/22/2024 11:26:34 05/29/19 25 Air & Speech Audio with Tymps - 79425, 44869 & 94453 completed JEAN CLAUDE RENTERIA 100 [facility],[address], [address], [facility] - [facility] 05/29/2024 11:49:44 01/03/20 24 Allergy Testing-Full completed ANA LILIA STEPHEN 100 [facility] 100, [place], [address], [facility] 01/03/2024 11:15:19 12/27/19 24 Allergy Testing Modified- Quantitative Testing (MQT) Only completed ANA LILIA STEPHEN 100 [facility] 100, [place], [address], [facility] 12/27/2023 15:09:31 Imaging Results None recorded. Procedure Notes None recorded. Medical Equipment None Reported. Allergies Allergen ID Allergen Name Allergen Category Reaction Reaction Severity Criticality Documentation Date Start Date Code Code System Note Provider Name and Address Organization Details Recorded Time 22987 penicilli n V potassium medicatio n other Not available Not available 08/24/2023 5 RxNorm React ion: unkno wn, unspe cifie d;; Not Available [facility] 00:50:23 Medications Name Sig Start [...] mg tablet 12/26 completed Medicati on ID: [id number] D uration Value: 10 Brand Name: predniso [...] subcut kit 11/15 completed Medicati on ID: [id number] D uration Value: 28 Reason: () Brand [...] /min 138/91 mm[Hg] ANA LILIA STEPHEN 100 [facility],[address], [address], [place] [facility] 01/15/2025 15:23:07 Social History None recorded. Functional Status None recorded. Mental Status None recorded. Family History Nothing Reported. Medical History Condition Response GERD/Reflux Y Past Encounters Encounter ID Performer Location Encounter Start Date Encounter Closed Date Diagnosis/Indication Diagnosis SNOMED-CT Code Diagnosis ICD10 Code Diagnosis IMO Codes Diagnosis Note [id number] ARNEL CISNEROS MD [facility] 100 [place] [address] 12/22/2024 10:12:22 01/01/2025 20:05:15 Seasonal allergic rhinitis 349418909 J30.89 44758803 Hypertroph y of nasal turbinates 10765494 J34.3 37581774 [id number] ANA LILIA STEPHEN Allergy 100 [facility] it[address] 100 [place] [address] 01/15/2025 15:11:17 01/15/2025 15:47:40 Perennial allergic rhinitis 873034471 J30.89 Health Concerns Section Related Observation LastModified by Organization Detai ls LastModified Time None Recorded Concern Status LastModified by Organization Details LastModified Time None Recorded Payers Encounter Date Sequence Insurance Name Policy Number Policy En[place]orado Covered Member ID Enamorado Member ID Guarantor Name 01/15/2025 1 [facility] (HMO) [id number] Tyler Mccann [id number] Tyler Mccann
--- OUTSIDE RECORDS SUMMARY | 2025-03-01 08:38 | XMS_ITS | Continuity of Care Document ---
Author Organization [place] - [facility], [facility] Address 100 [place] [address] Care Team Providers Care Public Relations Director Name Role Phone DANNIE, YARIEL Primary Care [...] he will call/message us when it expires. [email or web address] Not available 12/22/2024 11:46:58 Plan of Treatment [...] Recorded Time Impacted cerumen in right ear 99651751068 83987 Active 2016 Impacted cerumen, right ear; Note: Date Diagnosed : 04/29/2016 4:34 PM (H61.21) Not Available [facility] 4 02:13:30 Allergic rhinitis caused by pollen 91892611 Active 2019 Allergy NOS due to pollen; Note: Date Diagnosed : 11/16/2019 11:51 AM (J30.1) Not Available [facility] 4 02:13:08 Closed fracture of nasal bones 35014264 Active 2022 Fracture of nasal bones, initial encounter for closed fracture; Note: Date Diagnosed : 07/21/2022 10:06 AM (S02.2XXA ) Not Available [facility] 4 02:14:15 Impacted cerumen of bilateral ears 50663488007 44472 Active 2023 TATIANA DOLAN PA-C [address], [place], [place], [address] , [facility] - [facility] [place] 4 14:04:01 Nasal congestio n 50635048 Active 2023 TATIANA DOLAN PA-C [address], [place], [address] , [facility] - [facility] [place] 4 14:05:26 Allergic rhinitis 37219942 Active 2023 TATIANA DOLAN PA-C [address], [place], [place], [address] , [facility] - [facility] [place] 4 14:05:34 Seasonal allergic rhinitis 313344454 Active 2023 KIMBERLEE MARIE 100 [facility] [place],[address], [place], [place], [address] , [facility] - [facility] [place] 5 11:27:13 Non-aller gic rhinitis 85659006538 1 Active 2023 TATIANA DOLAN PA-C [address],[facility] 100, [place], [place], [address] , [facility] - [facility] [place] 4 14:05:34 Abnormal auditory perceptio n 82545685 Active 2024 JEAN CLAUDE RENTERIA [address], [place], [place], [address] , [facility] - [facility] [place] 5 11:50:31 Hypertrop hy of nasal turbinate s 20278964 Active 2024 KIMBERLEE MARIE [address], [place], [place], [address] , [facility] - [facility] [place] 5 11:27:26 Perennial allergic rhinitis 721793595 Active 2024 CHICO CORBIN RN [address], [place], [address] , [place] [facility] [place] 10:33:32 Problem Notes None recorded. Procedures Surgical History Date Name Laterality Status Provider Name and Address Organization Details Recorded Time 01/31/20 25 Allergy Immunotherapy Injections completed Ashkan Cormier 100 [facility],[address], [address], [facility] 01/30/2025 10:08:12 01/24/20 25 Allergy Immunotherapy Injections completed CHICO CORBIN RN 100 [facility],[address], [address], [facility] 01/23/2025 10:33:55 01/16/20 25 Allergy Immunotherapy Injections completed ANA LILIA STEPHEN [address] [place] [address],[address], [address], [facility] 01/15/2025 15:46:57 12/23/19 25 JMSNasal/Sinus Endoscopy completed KIMBERLEE MARIE 100 [facility],[address], [address], [facility] 12/22/2024 11:26:34 05/29/19 25 Air & Speech Audio with Tymps - 08188, 78576 & 53827 completed JEAN CLAUDE RENTERIA 100 [facility],[address], [address], [facility] 05/29/2024 11:49:44 01/03/20 24 Allergy Testing-Full completed ANA LILIA STEPHEN [address] [place] [address],[address], [address], [facility] 01/03/2024 11:15:19 12/27/19 24 Allergy Testing Modified- Quantitative Testing (MQT) Only completed ANA LILIA STEPHEN [address] [place] [address],[address], [address], [facility] 12/27/2023 15:09:31 Imaging Results None recorded. Procedure Notes None recorded. Medical Equipment None Reported. Allergies Allergen ID Allergen Name Allergen Category Reaction Reaction Severity Criticality Documentation Date Start Date Code Code System Note Provider Name and Address Organization Details Recorded Time 63298 penicilli n V potassium medicatio n other Not available Not available 08/24/202385375 5 RxNorm React ion: unkno wn, unspe cifie d;; Not Available [facility] 00:50:23 Medications Name Sig Start Date [...] mg tablet 12/26 completed Medicati on ID: [id number] D uration Value: 10 Brand Name: predniso [...] subcut kit 11/15 completed Medicati on ID: [id number] D uration Value: 28 Reason: () Brand [...] ICD10 Code Diagnosis IMO Codes Diagnosis Note [id number] ARNEL CISNEROS MD [facility] [address] [address] 12/22/2024 10:12:22 01/01/2025 20:05:15 Seasonal allergic rhinitis 864264518 J30.89 32369487 Hypertroph y of nasal turbinates 71222194 J34.3 59261671 Health Concerns Section Related Observation LastModified by Organization [facility] LastModified Time None Recorded Concern Status LastModified by Organization Details LastModified Time None Recorded Payers Encounter Date Sequence Insurance Name Policy Number Policy [place] Covered Member ID [place] Member ID Guarantor Name 12/22/2024 1 [facility] (O) [id number] Tyler Mccann [id number] Tyler Mccann Notes Date Note Type [...] at rest. He had PFTs done at [facility] within the month that showed partial [...] like to consider Dupixent. ARNEL BUNN MD [address] [place] [address], [address], [facility] - [facility] 12/22/2024 12:29:49
--- OUTSIDE RECORDS SUMMARY | 2025-03-01 08:38 | XMS_ITS | Continuity of Care Document ---
Author Organization [place] - [facility], Allergy Address [address] [address] Care Team Providers Care Electroplater Helper Name Role Phone DANNIESALINAS KIMDULCE Primary Care [...] Dose Aware of Vial Test Aware: Notes: [email or web address] Not available 01/30/2025 10:08:22 Plan of Treatment [...] Recorded Time Impacted cerumen in right ear 38481368613 96022 Active 2016 Impacted cerumen, right ear; Note: Date Diagnosed : 04/29/2016 4:34 PM (H61.21) Not Available [facility] 4 02:13:30 Allergic rhinitis caused by pollen 35028007 Active 2019 Allergy NOS due to pollen; Note: Date Diagnosed : 11/16/2019 11:51 AM (J30.1) Not Available [facility] 4 02:13:08 Closed fracture of nasal bones 39289790 Active 2022 Fracture of nasal bones, initial encounter for closed fracture; Note: Date Diagnosed : 07/21/2022 10:06 AM (S02.2XXA ) Not Available [facility] 4 02:14:15 Impacted cerumen of bilateral ears 76759773922 43336 Active 2023 TATIANA DOLAN PA-C 100 [facility],[place] [address], [place], [address] , [facility] 4 14:04:01 Nasal congestio n 70231312 Active 2023 TATIANA DOLAN PA-C [address] [place] [address],[place] [address], [place], [address] , [facility] [place] 4 14:05:26 Allergic rhinitis 30993914 Active 2023 TATIANA DOLAN PA-C 100 [facility],[place] [address], [facility] [place], [address] , [facility] - [facility] 4 14:05:34 Seasonal allergic rhinitis 613016051 Active 2023 KIMBERLEE MARIE 100 [facility],[place] [address], [facility] [place], [address] , [facility] - [facility] [place] 5 11:27:13 Non-aller gic rhinitis 57545315924 1 Active 2023 TATIANA DOLAN PA-C 100 [facility],[place] [address], [facility] [place], [address] , [facility] - [facility] [place] 4 14:05:34 Abnormal auditory perceptio n 97818983 Active 2024 JEAN CLAUDE RENTERIA [address], [facility] [place], [address] , [place] [facility] [place] 11:50:31 Hypertrop hy of nasal turbinate s 41675094 Active 2024 KIMBERLEE MARIE [address] [facility] [address], [place], [address] , [place] [facility] [place] 11:27:26 Perennial allergic rhinitis 734581274 Active 2024 CHICO CORBIN RN [facility] [place],[facility] 100, [place], [address] , [place] [facility] [place] 10:33:32 Problem Notes None recorded. Procedures Surgical History Date Name Laterality Status Provider Name and Address Organization Details Recorded Time 01/31/20 25 Allergy Immunotherapy Injections completed Ashkan Cormier 100 [facility],[address], [address], [place] [facility] [place] 01/30/2025 10:08:12 01/24/20 25 Allergy Immunotherapy Injections completed CHICO CORBIN RN 100 [facility],[place] [address], [place], [address], [place] [facility] 01/23/2025 10:33:55 01/16/20 25 Allergy Immunotherapy Injections completed ANA LILIA STEPHEN 100 [facility] [place] [address], [place], [address], [place] [facility] 01/15/2025 15:46:57 12/23/19 25 JMSNasal/Sinus Endoscopy completed KIMBERLEE MARIE 100 [facility] 100, [place], [address], [place] [facility] [place] 12/22/2024 11:26:34 05/29/19 25 Air & Speech Audio with Tymps - 00420, 72100 & 93022 completed JEAN CLAUDE RENTERIA [address],[place] [facility], [place], [address], [place] [facility] 05/29/2024 11:49:44 01/03/20 24 Allergy Testing-Full completed ANA LILIA STEPHEN 100 [facility] 100, [place], [address], [facility] 01/03/2024 11:15:19 12/27/19 24 Allergy Testing Modified- Quantitative Testing (MQT) Only completed ANA LILIA STEPHEN 100 [facility] 100, [place], [address], [facility] 12/27/2023 15:09:31 Imaging Results None recorded. [...] unkno wn, unspe cifie d;; Not Available [facility] 00:[facility]23 Medications Name Sig Start Date Stop [...] mg tablet 12/26 completed Medicati on ID: [id number] D uration Value: 10 Brand Name: predniso [...] subcut kit 11/15 completed Medicati on ID: [id number] D uration Value: 28 Reason: () Brand [...] ICD10 Code Diagnosis IMO Codes Diagnosis Note [id number] LUZMARIA WADDELL, [facility] Allergy 100 [facility] 100 [place] [address] 01/15/2025 15:11:17 01/15/2025 15:47:40 Perennial allergic rhinitis 519174478 J30.89 [id number] CHICO CORBIN RN Allergy [address] [place] [address],[facility] 100 [place] [address] 01/23/2025 08:52:47 01/23/2025 10:35:34 Perennial allergic rhinitis 428990063 J30.89 [id number] AMAYA SHARMA, [facility] Allergy 100 [facility] 100 [place] [address] 01/30/2025 08:54:34 01/30/2025 10:08:49 Perennial allergic rhinitis 668503584 J30.89 Health Concerns Section Related Observation LastModified by Organization Detai ls LastModified Time None Recorded Concern Status LastModified by Organization Details LastModified Time None Recorded Payers Encounter Date Sequence Insurance Name Policy Number Policy Enamorado Covered Member ID Enamorado Member ID Guarantor Name 01/30/2025 1 [facility] (O) [id number] Tyler Mccann [id number] Tyler Mccann
--- OUTSIDE RECORDS SUMMARY | 2025-03-01 08:38 | XMS_ITS | Data Portability ---
Author Organization [place] - [facility], Allergy Address [address] [address] Care Team Providers Care .Net Architect Name Role Phone YARIEL PANDEY Primary Care Provider [phone] YARIEL VIZCARAR Primary Care Provider [phone] Assessment Encounter Date Assessment Date Assessment LastModified [...] discussed the risk of anaphylaxis with this. [email or web address] Not available 05/29/2024 12:35:44 12/22/2024 12/22/2024 29-year-old [...] he will call/message us when it expires. [email or web address] Not available 12/22/2024 11:46:58 01/15/2025 01/15/2025 Visit With: Luzmaria Bardales Use of Antihistamines: No If yes: Vial Test Yes Change in medications: No If yes Increase in asthma symptoms If yes, inhaler use: Reaction to last injections: If yes: Allergy Symptoms: Other: Missed: Dose Aware of Vial Test Aware: Notes: [email or web address] Not available 01/15/2025 15:47:05 01/23/2025 01/23/2025 Visit [...] Dose Aware of Vial Test Aware: Notes: [email or web address] Not available 01/30/2025 10:08:22 Plan of Treatment [...] injection , auto-inje ctor 2024 025 [facility][id number], [address] [place], [address], 05/29/2024 12:32:14 azelastin e 137 mcg (0.1 %) nasal spray 2024 025 [facility] #[id number], [address] [place], [address], 05/29/2024 12:34:07 Patient TargetsNo targets recorded. Patient Instructions Encounter Date Encounter Id Patient Instructions Last Modified By Organization Details Last Modified Time 01/15/2025 [id number] allergy shots: care instructions [email or web address] Not available 01/15/2025 15:47:33 Reason for Referral [...] Recorded Time Impacted cerumen in right ear [id number] 28797 Active 2016 Impacted cerumen, right ear; Note: Date Diagnosed : 04/29/2016 4:34 PM (H61.21) Not Available [facility] 4 02:13:30 Allergic rhinitis caused by pollen 72223405 Active 2019 Allergy NOS due to pollen; Note: Date Diagnosed : 11/16/2019 11:51 AM (J30.1) Not Available [facility] 4 02:13:08 Closed fracture of nasal bones 43198957 Active 2022 Fracture of nasal bones, initial encounter for closed fracture; Note: Date Diagnosed : 07/21/2022 10:06 AM (S02.2XXA ) Not Available [facility] 4 02:14:15 Impacted cerumen of bilateral ears 29295910735 21527 Active 2023 TATIANA DOLAN PA-C [address], [place], [address] , [place] [facility] [place] 4 14:04:01 Nasal congestio n 48648752 Active 2023 TATIANA DOLAN PA-C [address], [place], [address] , [place] [facility] [place] 4 14:05:26 Allergic rhinitis 03534061 Active 2023 TATIANA DOLAN PA-C [address], [place], [address] , [place] [facility] [place] 4 14:05:34 Seasonal allergic rhinitis 115256987 Active 2023 KIMBERLEE MARIE [address], [place], [address] , [place] [facility] [place] 5 11:27:13 Non-aller gic rhinitis 36532213561 1 Active 2023 TATIANA DOLAN PA-C [address], [place], [address] , [place] [facility] [place] 4 14:05:34 Abnormal auditory perceptio n 22622818 Active 2024 JEAN CLAUDE RENTERIA [address], [place], [address] , [place] [facility] [place] 5 11:50:31 Hypertrop hy of nasal turbinate s 99412698 Active 2024 KIMBERLEE MARIE [address],[place] [address], [place], [address] , [place] [facility] [place] 5 11:27:26 Perennial allergic rhinitis 813249097 Active 2024 CHICO CORBIN RN [address], [place], [address] , [place] [facility] [place] 5 10:33:32 Problem Notes None recorded. Procedures Surgical History Date Name Laterality Status Provider Name and Address Organization Details Recorded Time 01/31/20 25 Allergy Immunotherapy Injections completed Ashkan Cormier 100 [facility],[address], [address], [facility] 01/30/2025 10:08:12 01/24/20 25 Allergy Immunotherapy Injections completed CHICO CORBIN RN 100 [facility],[address], [address], [facility] 01/23/2025 10:33:55 01/16/20 25 Allergy Immunotherapy Injections completed ANA LILIA STEPHEN 100 [facility],[address], [address], [facility] 01/15/2025 15:46:57 12/23/19 25 JMSNasal/Sinus Endoscopy completed KIMBERLEE MARIE 100 [facility],[address], [address], [facility] 12/22/2024 11:26:34 05/29/19 25 Air & Speech Audio with Tymps - 52972, 83078 & 07763 completed JEAN CLAUDE RENTERIA 100 [facility],[address], [address], [facility] 05/29/2024 11:49:44 01/03/20 24 Allergy Testing-Full completed ANA LILIA STEPHEN 100 [facility],[address], [address], [facility] 01/03/2024 11:15:19 12/27/19 24 Allergy Testing Modified- Quantitative Testing (MQT) Only completed ANA LILIA STEPHEN 100 [facility],[address], [address], [facility] 12/27/2023 15:09:31 Imaging Results None recorded. Procedure Notes None recorded. Medical Equipment None Reported. Allergies Allergen ID Allergen Name Allergen Category Reaction Reaction Severity Criticality Documentation Date Start Date Code Code System Note Provider Name and Address Organization Details Recorded Time 20983 penicilli n V potassium medicatio n other [...] mg tablet 12/26 completed Medicati on ID: [id number] D uration Value: 10 Brand Name: predniso [...] subcut kit 11/15 completed Medicati on ID: [id number] D uration Value: 28 Reason: () Brand [...] Updated DateTime 05/29/2024 190.5 cm 29.4 kg/m2 906963.21 g Dianna Cantu [facility] 05/29/2024 11:17:54 Date Recorded Body height Heart rate Systolic And Diastolic Provider Name and Address Organization Details Last Updated DateTime 01/15/2025 190.5 cm 77 /min 138/91 mm[Hg] LUZMARIA BARDALES , [facility] [address], [address], [place] - [facility] 01/15/2025 15:23:07 Social History None recorded. Functional Status None recorded. Mental Status None recorded. Family History Nothing Reported. Medical History Condition Response GERD/Reflux Y Past Encounters Encounter ID Performer Location Encounter Start Date Encounter Closed Date Diagnosis/Indication Diagnosis SNOMED-CT Code Diagnosis ICD10 Code Diagnosis IMO Codes Diagnosis Note [id number] TATIANA DOLAN PA-C [facility] [address] [address] 12/06/2023 13:31:09 12/06/2023 13:55:51 Nasal congestion 90060167 R09.81 [id number] LUZMARIA BARDALES [facility] Allergy [address] [place] [address] 12/27/2023 14:12:56 12/27/2023 15:26:25 Allergic rhinitis 22633067 J30.9 [id number] LUZMARIA BARDALES [facility] Allergy [address] [place] [address] 01/03/2024 10:16:10 01/03/2024 10:17:15 Allergic rhinitis 39476162 J30.9 [id number] TATIANA DOLAN PA-C [facility] [address] [address] 05/29/2024 11:04:38 05/29/2024 12:04:22 Nasal congestion 66474345 R09.81 Allergic rhinitis 129323 04 J30.89 Abnormal a uditory perception 90313520 H93.299 Right Ear:Normal hearing with excellent speech discrimina tion.Type A tympanogra m.Left Ear:Normal hearing with excellent speech discrimina tion.Type A tympanogra m. [id number] ARNEL CISNEROS MD [facility] [address] [address] 12/22/2024 10:12:22 01/01/2025 20:05:15 Seasonal allergic rhinitis 107112608 J30.89 [id number] Hypertroph y of nasal turbinates 79623993 J34.3 [id number] LUZMARIA BARDALES [facility] [address] [place] [address] 01/15/2025 15:11:17 01/15/2025 15:47:40 Perennial allergic rhinitis 947006206 J30.89 [id number] CHICO CORBIN RN Allergy [address] [place] [address], [address] [place] [address] 01/23/2025 08:52:47 01/23/2025 10:35:34 Perennial allergic rhinitis 206298801 J30.89 [id number] AMAYA SHARMA, ANA LILIA Allergy 100 [facility], [address] [place] [address] 01/30/2025 08:54:34 01/30/2025 10:08:49 Perennial allergic rhinitis 769033077 J30.89 Health Concerns Section Related Observation LastModified by Organization Detai ls LastModified Time None Recorded Concern Status LastModified by Organization Details LastModified Time None Recorded Advance Directives Directive None Recorded Payers Insurance Date Sequence Insurance Name Policy Number Policy Enamorado Covered Member ID Enamorado Member ID Guarantor Name 01/30/2025 1 [facility] [id number] Tyler Flores Mccann [id number] Tyler L Mccann 05/26/2024 2 [facility] (O) Tyler Flores Mccann [id number] Tyler Flores Mccann Notes Date Note [...] a few years. ARNEL BUNN MD 100 [facility],[address], [address], [facility] - [facility] 05/29/2024 17:08:31 12/22/2024 text/html ROS as noted [...] at rest. He had PFTs done at [facility] within the month that showed partial reversible [...] like to consider Dupixent. ARNEL BUNN MD [address] [place] [address], [address], [facility] - [facility] 12/22/2024 12:29:49
--- OUTSIDE RECORDS SUMMARY | 2025-03-01 08:38 | XMS_ITS | Continuity of Care Document ---
Author Organization [place] - [facility], Allergy Address [address] [address] Care Team Providers Care Floor Tech Name Role Phone DANNIEYARIEL Primary Care Provider [phone] GIOYVESYARIEL Primary Care Provider Assessment Encounter Date [...] Recorded Time Impacted cerumen in right ear 37729981073 61427 Active 2016 Impacted cerumen, right ear; Note: Date Diagnosed : 04/29/2016 4:34 PM (H61.21) Not Available [facility] 4 02:13:30 Allergic rhinitis caused by pollen 21527785 Active 2019 Allergy NOS due to pollen; Note: Date Diagnosed : 11/16/2019 11:51 AM (J30.1) Not Available [facility] 4 02:13:08 Closed fracture of nasal bones 98573152 Active 2022 Fracture of nasal bones, initial encounter for closed fracture; Note: Date Diagnosed : 07/21/2022 10:06 AM (S02.2XXA ) Not Available [facility] 4 02:14:15 Impacted cerumen of bilateral ears 57211390033 35755 Active 2023 TATIANA DOLAN PA-C [address], [place], [address] , [facility] - [facility] [place] 4 14:04:01 Nasal congestio n 99833291 Active 2023 TATIANA DOLAN PA-C [address], [place], [address] , [facility] - [facility] [place] 4 14:05:26 Allergic rhinitis 29997656 Active 2023 TATIANA DOLAN PA-C [address], [place], [address] , [facility] - [facility] [place] 4 14:05:34 Seasonal allergic rhinitis 479163247 Active 2023 KIMBERLEE MARIE [address], [place], [address] , [place] [facility] [place] 5 11:27:13 Non-aller gic rhinitis 35478200452 1 Active 2023 TATIANA DOLAN PA-C [address], [place], [address] , [place] [facility] [place] 4 14:05:34 Abnormal auditory perceptio n 08396227 Active 2024 JEAN CLAUDE RENTERIA 100 [facility],[place] [address], [place], [address] , [facility] - [facility] [place] 5 11:50:31 Hypertrop hy of nasal turbinate s 86595349 Active [address] [facility],[place] [address], [place], [address] , [facility] - [facility] [place] 5 11:27:26 Perennial allergic rhinitis 408369963 Active 2024 CHICO CORBIN RN 100 [facility],[place] [address], [place], [address] , [facility] - [facility] [place] 5 10:33:32 Problem Notes None recorded. Procedures Surgical History Date Name Laterality Status Provider Name and Address Organization Details Recorded Time 01/31/20 25 Allergy Immunotherapy Injections completed Ashkan Cormier 100 [facility],[address], [address], [facility] - [facility] 01/30/2025 10:08:12 01/24/20 25 Allergy Immunotherapy Injections completed CHICO CORBIN RN 100 [facility],[address], [address], [facility] - [facility] 01/23/2025 10:33:55 01/16/20 25 Allergy Immunotherapy Injections completed ANA LILIA STEPHEN 100 [facility],[address], [address], [facility] - [facility] 01/15/2025 15:46:57 12/23/19 25 JMSNasal/Sinus Endoscopy completed KIMBERLEE MARIE 100 [facility],[address], [address], [facility] - [facility] [place] 12/22/2024 11:26:34 05/29/19 25 Air & Speech Audio with Tymps - 53869, 19198 & 59146 completed JEAN CLAUDE RENTERIA 100 [facility],[address], [address], [facility] - [facility] [place] 05/29/2024 11:49:44 01/03/20 24 Allergy Testing-Full completed RYLEY JEFFY [facility] 100 [facility],[address], [address], [facility] 01/03/2024 11:15:19 12/27/19 24 Allergy Testing Modified- Quantitative Testing (MQT) Only completed RYLEYKIMBERLY BARDALES [facility] 100 [facility],[place] [address], [place], [address], [facility] 12/27/2023 15:09:31 Imaging Results None recorded. Procedure Notes None recorded. Medical Equipment None Reported. Allergies Allergen ID Allergen Name Allergen Category Reaction Reaction Severity Criticality Documentation Date Start Date Code Code System Note Provider Name and Address Organization Details Recorded Time 72494 penicilli n V potassium medicatio n other Not available Not available 08/24/202306237 5 RxNorm React ion: unkno wn, unspe cifie d;; Not Available [facility] 00:50:23 Medications Name Sig Start Date Stop [...] mg tablet 12/26 completed Medicati on ID: [id number] D uration Value: 10 Brand Name: predniso [...] subcut kit 11/15 completed Medicati on ID: [id number] D uration Value: 28 Reason: () Brand [...] ICD10 Code Diagnosis IMO Codes Diagnosis Note [id number] ANA LILIA STEPHEN Allergy 100 [facility], [address] [place] [address] 01/15/2025 15:11:17 01/15/2025 15:47:40 Perennial allergic rhinitis 377065341 J30.89 [id number] CHICO CORBIN RN Allergy 100 [facility], [address] [place] [address] 01/23/2025 08:52:47 01/23/2025 10:35:34 Perennial allergic rhinitis 989705390 J30.89 Health Concerns Section Related Observation LastModified by Organization Detai ls LastModified Time None Recorded Concern Status LastModified by Organization Details LastModified Time None Recorded Payers Encounter Date Sequence Insurance Name Policy Number Policy Enamorado Covered Member ID Enamorado Member ID Guarantor Name 01/23/2025 1 [facility] (O) [id number] Tyler Mccann [id number] Tyler Mccann
== END 2025-03-01 09:08 | disposition home or self-care (01) ==
PROVIDERS: PCP Nurse Practitioner Family; Visit Provider Nurse Practitioner Family
DX: R07.9 Chest pain, unspecified (principal)

== ENCOUNTER → 2025-03-01 08:10 | Outpatient (BNVA) | payer OTHER, SELFPAY | PROVIDERS: PCP Nurse Practitioner Family; Visit Provider Nurse Practitioner Family | DX: R07.9 Chest pain, unspecified (principal) | CPT/HCPCS: 93005; 99212 ==

== ENCOUNTER 2025-03-13 08:44 | Outpatient (REF) | payer OTHER, SELFPAY ==
--- OUTSIDE RECORDS SUMMARY | 2025-03-13 08:53 | XMS_ITS | Data Portability ---
Author Organization [place] - [facility], Allergy Address [address] [address] Care Team Providers Care Soldering Inspector Name Role Phone YARIEL PANDEY Primary Care Provider [phone] YARIEL VIZCARRA Primary Care Provider Assessment Encounter [...] discussed the risk of anaphylaxis with this. [email or web address] Not available 05/29/2024 12:35:44 12/22/2024 12/22/2024 29-year-old [...] he will call/message us when it expires. [email or web address] Not available 12/22/2024 11:46:58 01/15/2025 01/15/2025 Visit With: Luzmaria Bardales Use of Antihistamines: No If yes: Vial Test Yes Change in medications: No If yes Increase in asthma symptoms If yes, inhaler use: Reaction to last injections: If yes: Allergy Symptoms: Other: Missed: Dose Aware of Vial Test Aware: Notes: [email or web address] Not available 01/15/2025 15:47:05 01/23/2025 01/23/2025 Visit [...] Dose Aware of Vial Test Aware: Notes: [email or web address] Not available 01/30/2025 10:08:22 Plan of Treatment [...] injection , auto-inje ctor 2024 [id number] [facility]/Pharmacy #[id number], [address] [place], [address], 05/29/2024 12:32:14 azelastin e 137 mcg (0.1 %) nasal spray 2024 025 [facility]/Pharmacy #[id number], [address] [place], [address], 05/29/2024 12:34:07 Patient TargetsNo targets recorded. Patient Instructions Encounter Date Encounter Id Patient Instructions Last Modified By Organization Details Last Modified Time 01/15/2025 [id number] allergy shots: care instructions [email or web address] Not available 01/15/2025 15:47:33 Reason for Referral [...] Recorded Time Impacted cerumen in right ear [id number] 30125 Active 2016 Impacted cerumen, right ear; Note: Date Diagnosed : 04/29/2016 4:34 PM (H61.21) Not Available [facility] 4 02:13:30 Allergic rhinitis caused by pollen 20364664 Active 2019 Allergy NOS due to pollen; Note: Date Diagnosed : 11/16/2019 11:51 AM (J30.1) Not Available [facility] 4 02:13:08 Closed fracture of nasal bones 62717878 Active 2022 Fracture of nasal bones, initial encounter for closed fracture; Note: Date Diagnosed : 07/21/2022 10:06 AM (S02.2XXA ) Not Available [facility] 4 02:14:15 Impacted cerumen of bilateral ears 34098621387 77795 Active 2023 TATIANA DOLAN PA-C [address], [place], [address] , [place] [facility] [place] 4 14:04:01 Nasal congestio n 74473671 Active 2023 TATIANA DOLAN PA-C [address], [place], [address] , [place] [facility] [place] 4 14:05:26 Allergic rhinitis 52108523 Active 2023 TATIANA DOLAN PA-C [address], [place], [address] , [place] [facility] [place] 4 14:05:34 Seasonal allergic rhinitis 838484593 Active 2023 KIMBERLEE MARIE [address], [place], [address] , [place] [facility] [place] 5 11:27:13 Non-aller gic rhinitis 38905298366 1 Active 2023 TATIANA DOLAN PA-C [address], [place], [address] , [place] [facility] [place] 4 14:05:34 Abnormal auditory perceptio n 15924744 Active 2024 JEAN CLAUDE RENTERIA [address], [place], [address] , [place] [facility] [place] 5 11:50:31 Hypertrop hy of nasal turbinate s 36083305 Active 2024 KIMBERLEE MARIE [address], [place], [address] , [place] [facility] [place] 5 11:27:26 Perennial allergic rhinitis 346569284 Active 2024 CHICO CORBIN RN [address], [place], [address] , [place] [facility] [place] 5 10:33:32 Problem Notes None recorded. Procedures Surgical History Date Name Laterality Status Provider Name and Address Organization Details Recorded Time 01/31/20 25 Allergy Immunotherapy Injections completed Ashkan Cormier 100 [facility],[address], [address], [facility] 01/30/2025 10:08:12 01/24/20 25 Allergy Immunotherapy Injections completed CHICO CORBIN RN 100 [facility],[address], [address], [facility] 01/23/2025 10:33:55 01/16/20 25 Allergy Immunotherapy Injections completed ANA LILIA STEPHEN 100 [facility],[address], [address], [facility] 01/15/2025 15:46:57 12/23/19 25 JMSNasal/Sinus Endoscopy completed KIMBERLEE MARIE 100 [facility],[address], [address], [facility] 12/22/2024 11:26:34 05/29/19 25 Air & Speech Audio with Tymps - 46914, 25666 & 72038 completed JEAN CLAUDE RENTERIA 100 [facility],[address], [address], [facility] 05/29/2024 11:49:44 01/03/20 24 Allergy Testing-Full completed ANA LILIA STEPHEN 100 [facility],[address], [address], [facility] 01/03/2024 11:15:19 12/27/19 24 Allergy Testing Modified- Quantitative Testing (MQT) Only completed ANA LILIA STEPHEN 100 [facility],[address], [address], [facility] 12/27/2023 15:09:31 Imaging Results None recorded. Procedure Notes None recorded. Medical Equipment None Reported. Allergies Allergen ID Allergen Name Allergen Category Reaction Reaction Severity Criticality Documentation Date Start Date Code Code System Note Provider Name and Address Organization Details Recorded Time 77006 penicilli n V potassium medicatio n other [...] mg tablet 12/26 completed Medicati on ID: [id number] D uration Value: 10 Brand Name: predniso [...] subcut kit 11/15 completed Medicati on ID: 668252 D uration Value: 28 Reason: () Brand [...] Updated DateTime 05/29/2024 190.5 cm 29.4 kg/m2 597832.21 g Dianna Cantu [facility] 05/29/2024 11:17:54 Date Recorded Body height Heart rate Systolic And Diastolic Provider Name and Address Organization Details Last Updated DateTime 01/15/2025 190.5 cm 77 /min 138/91 mm[Hg] LUZMARIA BARDALES , [facility] [address], [address], [place] - [facility] 01/15/2025 15:23:07 Social History None recorded. Functional Status None recorded. Mental Status None recorded. Family History Nothing Reported. Medical History Condition Response GERD/Reflux Y Past Encounters Encounter ID Performer Location Encounter Start Date Encounter Closed Date Diagnosis/Indication Diagnosis SNOMED-CT Code Diagnosis ICD10 Code Diagnosis IMO Codes Diagnosis Note [id number] TATIANA DOLAN PA-C [facility] [address] [address] 12/06/2023 13:31:09 12/06/2023 13:55:51 Nasal congestion 74548523 R09.81 [id number] LUZMARIA BARDALES [facility] Allergy [address] [place] [address] 12/27/2023 14:12:56 12/27/2023 15:26:25 Allergic rhinitis 61265042 J30.9 [id number] LUZMARIA BARDALES [facility] Allergy [address] [place] [address] 01/03/2024 10:16:10 01/03/2024 10:17:15 Allergic rhinitis 78673502 J30.9 [id number] TATIANA DOLAN PA-C [facility] [address] [address] 05/29/2024 11:04:38 05/29/2024 12:04:22 Nasal congestion 13155493 R09.81 Allergic rhinitis 598088 04 J30.89 Abnormal a uditory perception 97577111 H93.299 Right Ear:Normal hearing with excellent speech discrimina tion.Type A tympanogra m.Left Ear:Normal hearing with excellent speech discrimina tion.Type A tympanogra m. [id number] ARNEL CISNEROS MD [facility] [address] [address] 12/22/2024 10:12:22 01/01/2025 20:05:15 Seasonal allergic rhinitis 220781708 J30.89 [id number] Hypertroph y of nasal turbinates 69524548 J34.3 [id number] LUZMARIA BARDALES [facility] [address] [place] [address] 01/15/2025 15:11:17 01/15/2025 15:47:40 Perennial allergic rhinitis 545181307 J30.89 [id number] CHICO CORBIN RN Allergy [address] [place] [address], ite [address] [place] [address] 01/23/2025 08:52:47 01/23/2025 10:35:34 Perennial allergic rhinitis 462403618 J30.89 [id number] AMAYA SHARMA, ANA LILIA Allergy 100 [facility], ite 100 [place] [address] 01/30/2025 08:54:34 01/30/2025 10:08:49 Perennial allergic rhinitis 561998194 J30.89 Health Concerns Section Related Observation LastModified by Organization Detai ls LastModified Time None Recorded Concern Status LastModified by Organization Details LastModified Time None Recorded Advance Directives Directive None Recorded Payers Insurance Date Sequence Insurance Name Policy Number Policy Enamorado Covered Member ID Enamorado Member ID Guarantor Name 03/13/2025 1 [facility] [id number] Tyler Flores Mccann [id number] Tyler L Mccann 05/26/2024 2 [facility] (O) Tyler Flores Mccann [id number] Tyler Flores Mccann Notes Date Note [...] a few years. ARNEL BUNN MD 100 [facility],[address], [address], [facility] - [facility] 05/29/2024 17:08:31 12/22/2024 text/html ROS as [...] at rest. He had PFTs done at [facility] within the month that showed partial [...] like to consider Dupixent. ARNEL BUNN MD [address] [place] [address], [address], [facility] - [facility] 12/22/2024 12:29:49
--- OUTSIDE RECORDS SUMMARY | 2025-03-13 08:54 | XMS_ITS | Continuity of Care Document ---
Author Organization [place] - [facility], [facility] Address 100 [place] [address] Care Team Providers Care Electric Sign Assembler Name Role Phone DANNIE, YARIEL Primary Care [...] he will call/message us when it expires. [email or web address] Not available 12/22/2024 11:46:58 Plan of Treatment [...] Recorded Time Impacted cerumen in right ear 56657392878 45868 Active 2016 Impacted cerumen, right ear; Note: Date Diagnosed : 04/29/2016 4:34 PM (H61.21) Not Available [facility] 4 02:13:30 Allergic rhinitis caused by pollen 97055123 Active 2019 Allergy NOS due to pollen; Note: Date Diagnosed : 11/16/2019 11:51 AM (J30.1) Not Available [facility] 4 02:13:08 Closed fracture of nasal bones 62205378 Active 2022 Fracture of nasal bones, initial encounter for closed fracture; Note: Date Diagnosed : 07/21/2022 10:06 AM (S02.2XXA ) Not Available [facility] 4 02:14:15 Impacted cerumen of bilateral ears 54017359599 24369 Active 2023 TATIANA DOLAN PA-C [address], [place], [place], [address] , [facility] 4 14:04:01 Nasal congestio n 50577811 Active 2023 TATIANA DOLAN PA-C [address], [place], [address] , [facility] - [facility] 4 14:05:26 Allergic rhinitis 92606898 Active 2023 TATIANA DOLAN PA-C [address] [facility] [address], [place], [place], [address] , [facility] - [facility] 4 14:05:34 Seasonal allergic rhinitis 551392051 Active 2023 KIMBERLEE MARIE 100 [facility],[address], [place], [place], [address] , [facility] - [facility] [place] 5 11:27:13 Non-aller gic rhinitis 52822034747 1 Active 2023 TATIANA DOLAN PA-C [address] [facility] [address], [place], [place], [address] , [facility] - [facility] 4 14:05:34 Abnormal auditory perceptio n 90621776 Active 2024 JEAN CLAUDE RENTERIA [address] [facility] [address], [place], [place], [address] , [facility] - [facility] 5 11:50:31 Hypertrop hy of nasal turbinate s 02968753 Active 2024 KIMBERLEE MARIE [address], [place], [place], [address] , [facility] - [facility] 5 11:27:26 Perennial allergic rhinitis 405475487 Active 2024 CHICO CORBIN RN [address] [facility] [address], [place], [address] , [place] - [facility] [place] 10:33:32 Problem Notes None recorded. Procedures Surgical History Date Name Laterality Status Provider Name and Address Organization Details Recorded Time 01/31/20 25 Allergy Immunotherapy Injections completed Ashkan Cormier 100 [facility],[address], [address], [facility] 01/30/2025 10:08:12 01/24/20 25 Allergy Immunotherapy Injections completed CHICO CORBIN RN 100 [facility],[address], [address], [facility] 01/23/2025 10:33:55 01/16/20 25 Allergy Immunotherapy Injections completed ANA LILIA STEPHEN [address] [place] [address],[address], [address], [facility] 01/15/2025 15:46:57 12/23/19 25 JMSNasal/Sinus Endoscopy completed KIMBERLEE MARIE 100 [facility],[address], [address], [facility] 12/22/2024 11:26:34 05/29/19 25 Air & Speech Audio with Tymps - 37088, 26862 & 26554 completed JEAN CLAUDE RENTERIA 100 [facility],[address], [address], [facility] 05/29/2024 11:49:44 01/03/20 24 Allergy Testing-Full completed ANA LILIA STEPHEN [address] [place] [address],[address], [address], [facility] 01/03/2024 11:15:19 12/27/19 24 Allergy Testing Modified- Quantitative Testing (MQT) Only completed ANA LILIA STEPHEN [address] [place] [address],[address], [address], [facility] 12/27/2023 15:09:31 Imaging Results None recorded. Procedure Notes None recorded. Medical Equipment None Reported. Allergies Allergen ID Allergen Name Allergen Category Reaction Reaction Severity Criticality Documentation Date Start Date Code Code System Note Provider Name and Address Organization Details Recorded Time 72756 penicilli n V potassium medicatio n other Not available Not available 08/24/202347740 5 RxNorm React ion: unkno wn, unspe cifie d;; Not Available [facility] 00:50:23 Medications Name Sig Start [...] mg tablet 12/26 completed Medicati on ID: [id number] D uration Value: 10 Brand Name: predniso [...] subcut kit 11/15 completed Medicati on ID: 168961 D uration Value: 28 Reason: () Brand [...] ICD10 Code Diagnosis IMO Codes Diagnosis Note [id number] ARNEL CISNEROS MD [facility] [address] [address] 12/22/2024 10:12:22 01/01/2025 20:05:15 Seasonal allergic rhinitis 214121513 J30.89 89667923 Hypertroph y of nasal turbinates 43823290 J34.3 53488815 Health Concerns Section Related Observation LastModified by Organization [facility] LastModified Time None Recorded Concern Status LastModified by Organization Details LastModified Time None Recorded Payers Encounter Date Sequence Insurance Name Policy Number Policy Enamorado Covered Member ID Enamorado Member ID Guarantor Name 12/22/2024 1 [facility] ([facility]) [id number] Tyler Mccann [id number] Tyler Mccann Notes Date Note Type [...] at rest. He had PFTs done at [facility] within the month that showed partial [...] like to consider Dupixent. ARNEL BUNN MD [address] [place] [address], [address], [facility] - [facility] 12/22/2024 12:29:49
--- OUTSIDE RECORDS SUMMARY | 2025-03-13 08:54 | XMS_ITS | Continuity of Care Document ---
Author Organization [place] - [facility], Allergy Address [address] [address] Care Team Providers Care White Goods Appliance Tech Name Role Phone DANNIEYARIEL Primary Care [...] Dose Aware of Vial Test Aware: Notes: [email or web address] Not available 01/15/2025 15:47:05 Plan of Treatment [...] By Organization Details Last Modified Time 01/15/2025 [id number] allergy shots: care instructions Not available 01/15/2025 15:47:33 Reason for Referral None Reported. Problems Name Problem SNOMED Code Status Onset Date Resolution Date Notes Provider Name and Address Organization Details Recorded Time Impacted cerumen in right ear 91970695198 23949 Active 2016 Impacted cerumen, right ear; Note: Date Diagnosed : 04/29/2016 4:34 PM (H61.21) Not Available [facility] 4 02:13:30 Allergic rhinitis caused by pollen 69492161 Active 2019 Allergy NOS due to pollen; Note: Date Diagnosed : 11/16/2019 11:51 AM (J30.1) Not Available [facility] 4 02:13:08 Closed fracture of nasal bones 50818145 Active 2022 Fracture of nasal bones, initial encounter for closed fracture; Note: Date Diagnosed : 07/21/2022 10:06 AM (S02.2XXA ) Not Available [facility] 4 02:14:15 Impacted cerumen of bilateral ears 23765138300 50356 Active 2023 TATIANA DOLAN PA-C [address] [place],[address] [facility], [place], [address] , [facility] - [facility] 4 14:04:01 Nasal congestio n 74320525 Active 2023 TATIANA DOLAN PA-C [address] [place],[address], [place], [address] , [facility] - [facility] [place] 4 14:05:26 Allergic rhinitis 37890570 Active 2023 TATIANA DOLAN PA-C [address] [place],[address] [facility], [place], [address] , [facility] - [facility] [place] 4 14:05:34 Seasonal allergic rhinitis 244328012 Active 2023 KIMBERLEE MARIE [address], [place], [address] , [facility] - [facility] [place] 5 11:27:13 Non-aller gic rhinitis 78843840602 1 Active 2023 TATIANA DOLAN PA-C [address] [place],[address], [place], [address] , [place] - [facility] [place] 4 14:05:34 Abnormal auditory perceptio n 76358794 Active 2024 JEAN CLAUDE RENTERIA 100 [facility],[place] [address], [facility] [place], [address] , [place] - [facility] [place] 5 11:50:31 Hypertrop hy of nasal turbinate s 39758746 Active 2024 KIMBERLEE MARIE 100 [facility],[place] [address], [facility] [place], [address] , [facility] - [facility] [place] 5 11:27:26 Perennial allergic rhinitis 205148868 Active 2024 CHICO CORBIN RN 100 [facility],[place] [address], [facility] [place], [address] , [place] - [facility] [place] 5 10:33:32 Problem Notes None recorded. Procedures Surgical History Date Name Laterality Status Provider Name and Address Organization Details Recorded Time 01/31/20 25 Allergy Immunotherapy Injections completed Ashkan Cormier 100 [facility],[address], [address], [place] - [facility] [place] 01/30/2025 10:08:12 01/24/20 25 Allergy Immunotherapy Injections completed CHICO CORBIN RN 100 [facility],[address], [address], [facility] - [facility] [place] 01/23/2025 10:33:55 01/16/20 25 Allergy Immunotherapy Injections completed ANA LILIA STEPHEN 100 [facility],[address], [address], [place] [facility] [place] 01/15/2025 15:46:57 12/23/19 25 JMSNasal/Sinus Endoscopy completed KIMBERLEE MARIE 100 [facility],[address], [address], [facility] - [facility] [place] 12/22/2024 11:26:34 05/29/19 25 Air & Speech Audio with Tymps - 74076, 64925 & 11341 completed JEAN CLAUDE RENTERIA 100 [facility],[address], [address], [facility] - [facility] 05/29/2024 11:49:44 01/03/20 24 Allergy Testing-Full completed ANA LILIA STEPHEN 100 [facility], [place], [address], [facility] 01/03/2024 11:15:19 12/27/19 24 Allergy Testing Modified- Quantitative Testing (MQT) Only completed ANA LILIA STEPHEN 100 [facility], [place], [address], [facility] 12/27/2023 15:09:31 Imaging Results None recorded. Procedure Notes None recorded. Medical Equipment None Reported. Allergies Allergen ID Allergen Name Allergen Category Reaction Reaction Severity Criticality Documentation Date Start Date Code Code System Note Provider Name and Address Organization Details Recorded Time 88605 penicilli n V potassium medicatio n other [...] mg tablet 12/26 completed Medicati on ID: 720255 D uration Value: 10 Brand Name: predniso [...] subcut kit 11/15 completed Medicati on ID: [id number] D uration Value: 28 Reason: () Brand [...] /min 138/91 mm[Hg] ANA LILIA STEPHEN 100 [facility],[address], [address], [place] - [facility] 01/15/2025 15:23:07 Social History None recorded. Functional Status None recorded. Mental Status None recorded. Family History Nothing Reported. Medical History Condition Response GERD/Reflux Y Past Encounters Encounter ID Performer Location Encounter Start Date Encounter Closed Date Diagnosis/Indication Diagnosis SNOMED-CT Code Diagnosis ICD10 Code Diagnosis IMO Codes Diagnosis Note [id number] ARNEL CISNEROS MD [facility] 100 [place] [address] 12/22/2024 10:12:22 01/01/2025 20:05:15 Seasonal allergic rhinitis 134293911 J30.89 87497128 Hypertroph y of nasal turbinates 42109748 J34.3 42565125 [id number] ANA LILIA STEPHEN Allergy [address] [facility] ite 100 [place] [address] 01/15/2025 15:11:17 01/15/2025 15:47:40 Perennial allergic rhinitis 497590941 J30.89 Health Concerns Section Related Observation LastModified by Organization Detai ls LastModified Time None Recorded Concern Status LastModified by Organization Details LastModified Time None Recorded Payers Encounter Date Sequence Insurance Name Policy Number Policy Enamorado Covered Member ID Enamorado Member ID Guarantor Name 01/15/2025 [address] [facility] (HMO) [id number] Tyler Mccann [id number] Tyler Mccann
--- OUTSIDE RECORDS SUMMARY | 2025-03-13 08:54 | XMS_ITS | Continuity of Care Document ---
Author Organization [place] [facility], Allergy Address [address] [address] Care Team Providers Care Asp Net Developer Name Role Phone DANNIEYARIEL Primary Care Provider GIOYVESYARIEL Primary Care Provider [phone] Assessment Encounter Date Assessment Date Assessment LastModified [...] Recorded Time Impacted cerumen in right ear [id number] 29820 Active 2016 Impacted cerumen, right ear; Note: Date Diagnosed : 04/29/2016 4:34 PM (H61.21) Not Available [facility] 4 02:13:30 Allergic rhinitis caused by pollen 03118004 Active 2019 Allergy NOS due to pollen; Note: Date Diagnosed : 11/16/2019 11:51 AM (J30.1) Not Available [facility] 4 02:13:08 Closed fracture of nasal bones 77965164 Active 2022 Fracture of nasal bones, initial encounter for closed fracture; Note: Date Diagnosed : 07/21/2022 10:06 AM (S02.2XXA ) Not Available [facility] 4 02:14:15 Impacted cerumen of bilateral ears 53701006303 32969 Active 2023 TATIANA DOLAN PA-C [address], [place], [address] , [facility] - [facility] [place] 4 14:04:01 Nasal congestio n 96336974 Active 2023 TATIANA DOLAN PA-C [address], [place], [address] , [facility] - [facility] [place] 4 14:05:26 Allergic rhinitis 58925689 Active 2023 TATIANA DOLAN PA-C [address], [place], [address] , [facility] - [facility] [place] 4 14:05:34 Seasonal allergic rhinitis 214450373 Active 2023 KIMBERLEE MARIE [address], [place], [address] , [place] [facility] [place] 5 11:27:13 Non-aller gic rhinitis 03555395890 1 Active 2023 TATIANA DOLAN PA-C [address], [place], [address] , [place] [facility] [place] 4 14:05:34 Abnormal auditory perceptio n 15930594 Active 2024 JEAN CLAUDE RENTERIA 100 [facility],[place] [address], [place], [address] , [facility] - [facility] [place] 5 11:50:31 Hypertrop hy of nasal turbinate s 07309594 Active 2024 KIMBERLEE MARIE 100 [facility],[place] [address], [place], [address] , [facility] - [facility] [place] 5 11:27:26 Perennial allergic rhinitis 704608502 Active 2024 CHICO CORBIN RN 100 [facility],[place] [address], [place], [address] , [facility] - [facility] [place] 5 10:33:32 Problem Notes None recorded. Procedures Surgical History Date Name Laterality Status Provider Name and Address Organization Details Recorded Time 01/31/20 25 Allergy Immunotherapy Injections completed Ashkan Cormier 100 [facility],[address], [address], [facility] - [facility] 01/30/2025 10:08:12 01/24/20 25 Allergy Immunotherapy Injections completed CHICO CORBIN RN 100 [facility],[address], [address], [facility] - [facility] 01/23/2025 10:33:55 01/16/20 25 Allergy Immunotherapy Injections completed ANA LILIA STEPHEN 100 [facility],[address], [address], [facility] - [facility] 01/15/2025 15:46:57 12/23/19 25 JMSNasal/Sinus Endoscopy completed KIMBERLEE MARIE 100 [facility],[address], [address], [facility] - [facility] [place] 12/22/2024 11:26:34 05/29/19 25 Air & Speech Audio with Tymps - 91384, 86257 & 29540 completed JEAN CLAUDE RENTERIA 100 [facility],[address], [address], [facility] - [facility] [place] 05/29/2024 11:49:44 01/03/20 24 Allergy Testing-Full completed RYLEY JEFFY [facility] 100 [facility],[address], [address], [facility] 01/03/2024 11:15:19 12/27/19 24 Allergy Testing Modified- Quantitative Testing (MQT) Only completed RYLEYKIMBERLY BARDALES [facility] 100 [facility],[place] [address], [place], [address], [facility] 12/27/2023 15:09:31 Imaging Results None recorded. Procedure Notes None recorded. Medical Equipment None Reported. Allergies Allergen ID Allergen Name Allergen Category Reaction Reaction Severity Criticality Documentation Date Start Date Code Code System Note Provider Name and Address Organization Details Recorded Time 29685 penicilli n V potassium medicatio n other Not available Not available 08/24/202311717 5 RxNorm React ion: unkno wn, unspe cifie d;; Not Available [facility] 00:50:23 Medications Name Sig Start Date [...] mg tablet 12/26 completed Medicati on ID: [id number] D uration Value: 10 Brand Name: predniso [...] subcut kit 11/15 completed Medicati on ID: [id number] D uration Value: 28 Reason: () Brand [...] ICD10 Code Diagnosis IMO Codes Diagnosis Note [id number] ANA LILIA STEPHEN Allergy 100 [facility], [address] 100 [facility] [place] [address] 01/15/2025 15:11:17 01/15/2025 15:47:40 Perennial allergic rhinitis [id number] J30.89 [id number] CHICO CORBIN RN Allergy 100 [facility], [address] 100 [facility] [place] [address] 01/23/2025 08:52:47 01/23/2025 10:35:34 Perennial allergic rhinitis 138338063 J30.89 Health Concerns Section Related Observation LastModified by Organization Detai ls LastModified Time None Recorded Concern Status LastModified by Organization Details LastModified Time None Recorded Payers Encounter Date Sequence Insurance Name Policy Number Policy Enamorado Covered Member ID Enamorado Member ID Guarantor Name 01/23/2025 1 [facility] (O) [id number] Tyler Mccnan [id number] Tyler Mccann
--- OUTSIDE RECORDS SUMMARY | 2025-03-13 08:54 | XMS_ITS | Continuity of Care Document ---
Author Organization [place] - [facility], Allergy Address [address] [address] Care Team Providers Care Pbx Operator Name Role Phone DANNIE, YARIEL Primary Care Provider GIOYVESYARIEL Primary Care Provider [phone] Assessment Encounter Date Assessment Date Assessment LastModified by Organization Details LastModified Time 01/30/2025 01/30/2025 Visit With: Luzmaria Waddell Use of Antihistamine s: No If yes: Vial Test Change in medications: No If yes Increase in asthma symptoms No If yes, inhaler use: Reaction to last injections: No If yes: Allergy Symptoms: Other: Missed: Dose Aware of Vial Test Aware: Notes: [email or web address] Not available 01/30/2025 10:08:22 Plan of Treatment [...] Recorded Time Impacted cerumen in right ear [id number] 99999 Active 2016 Impacted cerumen, right ear; Note: Date Diagnosed : 04/29/2016 4:34 PM (H61.21) Not Available [facility] 4 02:13:30 Allergic rhinitis caused by pollen 59811353 Active 2019 Allergy NOS due to pollen; Note: Date Diagnosed : 11/16/2019 11:51 AM (J30.1) Not Available [facility] 4 02:13:08 Closed fracture of nasal bones 80322073 Active 2022 Fracture of nasal bones, initial encounter for closed fracture; Note: Date Diagnosed : 07/21/2022 10:06 AM (S02.2XXA ) Not Available [facility] 4 02:14:15 Impacted cerumen of bilateral ears 03508145199 37786 Active 2023 TATIANA DOLAN PA-C 100 [facility],[place] [address], [place], [address] , [facility] [place] 4 14:04:01 Nasal congestio n 02533409 Active 2023 TATIANA DOLAN PA-C [address] [place] [address],[place] [address], [place], [address] , [facility] - [facility] [place] 4 14:05:26 Allergic rhinitis 92762064 Active 2023 TATIANA DOLAN PA-C 100 [facility],[place] [address], [facility] [place], [address] , [facility] [place] 4 14:05:34 Seasonal allergic rhinitis 689450275 Active [address] [facility],[place] [address], [facility] [place], [address] , [facility] - [facility] [place] 5 11:27:13 Non-aller gic rhinitis 31196663417 1 Active 2023 TATIANA DOLAN PA-C 100 [facility],[place] [address], [facility] [place], [address] , [facility] - [facility] [place] 4 14:05:34 Abnormal auditory perceptio n 40065500 Active 2024 JEAN CLAUDE RENTERIA [address], [facility] [place], [address] , [place] [facility] [place] 11:50:31 Hypertrop hy of nasal turbinate s 73152269 Active 2024 KIMBERLEE MARIE [address] [facility], [place], [address] , [place] [facility] [place] 11:27:26 Perennial allergic rhinitis 222631975 Active 2024 CHICO CORBIN RN 100 [facility] [place],[facility] 100, [place], [address] , [place] [facility] [place] 10:33:32 Problem Notes None recorded. Procedures Surgical History Date Name Laterality Status Provider Name and Address Organization Details Recorded Time 01/31/20 25 Allergy Immunotherapy Injections completed Ashkan Cormier 100 [facility],[address], [address], [place] [facility] [place] 01/30/2025 10:08:12 01/24/20 25 Allergy Immunotherapy Injections completed CHICO CORBIN RN 100 [facility],[place] [address], [place], [address], [place] [facility] [place] 01/23/2025 10:33:55 01/16/20 25 Allergy Immunotherapy Injections completed ANA LILIA STEPHEN 100 [facility] [place] [address], [place], [address], [place] [facility] [place] 01/15/2025 15:46:57 12/23/19 25 JMSNasal/Sinus Endoscopy completed KIMBERLEE MARIE 100 [facility], [place], [address], [place] [facility] [place] 12/22/2024 11:26:34 05/29/19 25 Air & Speech Audio with Tymps - 92929, 99845 & 88010 completed JEAN CLAUDE RENTERIA [address] [facility] [facility] [address] [facility], [place], [address], [place] [facility] [place] 05/29/2024 11:49:44 01/03/20 24 Allergy Testing-Full completed ANA LILIA STEPHEN 100 [facility], [place], [address], [facility] 01/03/2024 11:15:19 12/27/19 24 Allergy Testing Modified- Quantitative Testing (MQT) Only completed ANA LILIA STEPHEN 100 [facility], [place], [address], [facility] 12/27/2023 15:09:31 Imaging Results None recorded. [...] unkno wn, unspe cifie d;; Not Available [facility] 00:50:23 Medications Name Sig Start Date Stop [...] mg tablet 12/26 completed Medicati on ID: [id number] D uration Value: 10 Brand Name: predniso [...] subcut kit 11/15 completed Medicati on ID: [id number] D uration Value: 28 Reason: () Brand [...] ICD10 Code Diagnosis IMO Codes Diagnosis Note [id number] LUZMARIA WADDELL, [facility] Allergy 100 [facility] 100 [place] [address] 01/15/2025 15:11:17 01/15/2025 15:47:40 Perennial allergic rhinitis 446133738 J30.89 [id number] CHICO CORBIN RN Allergy [address] [place] [address],[facility] 100 [place] [address] 01/23/2025 08:52:47 01/23/2025 10:35:34 Perennial allergic rhinitis 616377718 J30.89 [id number] AMAYA SHARMA, [facility] Allergy 100 [facility] 100 [place] [address] 01/30/2025 08:54:34 01/30/2025 10:08:49 Perennial allergic rhinitis 996525040 J30.89 Health Concerns Section Related Observation LastModified by Organization Detai ls LastModified Time None Recorded Concern Status LastModified by Organization Details LastModified Time None Recorded Payers Encounter Date Sequence Insurance Name Policy Number Policy Enamorado Covered Member ID Enamorado Member ID Guarantor Name 01/30/2025 1 [facility] (O) [id number] Tyler Mccann [id number] Tyler Mccann
[2025-03-13 08:55] LABS: MANUAL DIFF FLAG NO
[2025-03-13 09:03] LABS: Hematocrit 52.6 % (42.0-52.0); Hemoglobin 18.1 g/dl (14.0-18.0); Imm Gran Abs Auto 0.01 X10*3/uL (0.00-0.03); Imm Gran Pct Auto 0.2 % (0.0-0.4); Lymphocytes Absolute Auto 1.3 X10*3/uL (1.2-4.9); Mean Corpuscular HGB Conc 34.4 g/dl (31.0-36.0); Mean Corpuscular Hemoglobin 30.8 pg (27.0-33.0); Mean Corpuscular Volume 89.5 fL (80.0-98.0); NRBC Abs Auto 0.000 X10*3/uL (0.0-0.012); NRBC Pct Auto 0.0 /100WBC (0.0-0.2); Platelet Count 219 X10*3/uL (160-400); Red Blood Count 5.88 X10*6/uL (4.60-5.80); White Blood Count 6.4 X10*3/uL (4.8-10.8)
[2025-03-20 00:03] LABS: Class Alternaria alternata 2; Class Aspergillus fumigatus 2; Class Bermuda Grass 2; Class Birch 3; Class Cat Dander 1; Class Cladosporium herbarum 1; Class Cockroach 1; Class Common Ragweed 2; Class Cottonwood 2; Class Derm. pterony 0/1; Class Dermatophagoides farinae 0/1; Class Dog Dander 2; Class Elm 2; Class Maple Box Elder 2; Class Mountain Cedar 0/1; Class Mouse Urine Protein 2; Class Mugwort 1; Class Oak 3; Class Penicillium crysogenum 0/1; Class Rough Pigweed 0/1; Class Sheep Sorrel 2; Class Sycamore 2; Class Timothy Grass 3; Class Walnut Tree 2; Class White Ash 2; Class White Mulberry 0; D002 - IgE D farinae 0.14 kU/L; E001 - IgE Cat Dander 0.48 kU/L; E005 - IgE Dog Dander 0.77 kU/L; G006 - IgE Timothy Grass 5.06 kU/L; I006-IgE Cockroach, German 0.36 kU/L; M002 - IgE Cladosporium herbar 0.55 kU/L; M003 - IgE Aspergillus fumigat 1.27 kU/L; M006 - IgE Alternaria alternat 1.32 kU/L; T001 IgE Maple/Box Elder 1.98 kU/L; T006 - IgE Cedar, Mountain 0.23 kU/L; T007 - IgE Oak, White 4.03 kU/L; T008 IgE Elm, American 1.16 kU/L; T010 - IgE Walnut 1.13 kU/L; T011 - IgE Maple Leaf Sycamore 0.75 kU/L; T014 - IgE Cottonwood 0.88 kU/L; T015 - IgE Ash, White 1.70 kU/L; T070 - IgE White Mulberry <0.10 kU/L; W001 - IgE Ragweed, Short 0.91 kU/L; W006 - IgE Mugwort 0.46 kU/L; W014 IgE Pigweed, Common 0.32 kU/L; W018 IgE Sheep Sorrel 0.84 kU/L
== END 2025-03-13 08:45 | disposition home or self-care (01) ==
LOC: HO.LAB 08:44
PROVIDERS: Visit Provider Nurse Practitioner Family
DX: Z01.84 Encounter for antibody response examination (principal); Z91.09 Other allergy status, other than to drugs and biological substances
CPT/HCPCS: 36415; 82785; 85025; 86003

== ENCOUNTER 2025-03-20 10:26 | Outpatient (AMB) | payer OTHER, SELFPAY ==
--- NOTE | 2025-03-20 10:28 | A.OFFVIS_ITS ---
Vital Signs 03/20/25 10:29 Height 6 ft 3 in Weight 252 lb 6 oz BMI 31.5 BP 128/76 Blood Pressure Location Rt brachial Position Sitting Pulse 79 Pulse Source Pulse Oximeter Pulse Oximetry (%) 98 Oxygen Delivery Method Room Air Intake Visit Reasons: asthma Allergies penicillin V Allergy (Intermediate, Verified 03/20/25 10:31) rash HPI Comments Details: Tyler is a pleasant 29-year-old male, never smoker, with underlying asthma, HTN and Crohn's disease. The patient reports a history of asthma diagnosed in childhood with symptoms resolving up until recently. He has been on Breo and Spiriva, reporting some improvement in his breathing, though he still experiences a dry cough and shortness of breath requiring daily use of his albuterol inhaler. His medical history is significant for moderate to severe asthma. Recent allergy blood work revealed multiple allergies, including high levels of mold and dust, as well as allergies to various trees, cats, dogs, mice, and cockroaches. He has also placed SCIT on hold, as this may have been contributing to worsening asthma control. He also stopped taking montelukast due to side effects. The patient reports having carpets at home and a damp basement, for which he uses a dehumidifier and an air purifier. His work exposes him to dust and mold. He has an EpiPen, which is current. He recently received a nebulizer and has used it once. He also reports ongoing issues with nasal obstruction, under the care of ENT. He has experienced episodes of syncope, which can occur when getting up too quickly or stretching, and has discussed this with his primary care provider. 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 Mother Hypertension Maternal Grandfather Diabetes Stroke Other Anemia Social History Household Members: Friend(s) Housing: Apartment Are you a primary resident care coordinator to a significant other at home: No Do you presently have visiting nurse or other home services: No Alcohol intake: never Patient Tobacco Use Status: Never used Tobacco e-Cigarette/Vaping Use: Never Used Second Hand Smoke Exposure: No service: No Current occupational status: employed Current occupation: [email or web address], [place] Cognitive needs: No Hearing needs: No Vision needs: No Review of Systems Narrative Const Denies chills, Denies excessive sweating, Denies fever(s) and Denies night sweats Eyes Denies dry eyes, Denies irritation and Denies itchy eyes ENT Reports Normal hearing present and Denies sore throat Card Denies chest pain, Denies chest pain at rest, Denies chest pain with activity, Denies claudication, Denies leg edema, Reports dyspnea on exertion, Denies orthopnea and Denies paroxysmal nocturnal dyspnea Resp Denies chest congestion, Denies excessive phlegm production, Denies pain on inspiration, Denies pain with cough, Reports dyspnea on exertion and Denies stridor Musc Denies myalgias Neuro Reports Normal hearing present Endo Denies excessive sweating Niall/Lymph Denies lymphadenopathy Aller/Immun Denies itchy eyes and Denies seasonal rhinorrhea Physical Exam Exam Exam: Vital Signs: Last Vital Signs Pulse 79 03/20/25 10:29 BP 128/76 03/20/25 10:29 Pulse Ox 98 03/20/25 10:29 Oxygen Delivery Method Room Air 03/20/25 10:29 BMI result Body Mass Index 31.5 Const General: cooperative, healthy appearing, comfortable, no acute distress, well developed and alert Nutritional Appearance: obese Orientation/consciousness: patient oriented x3 Limitations: no limitations HEENT Head: Yes normal to inspection, Yes normocephalic and Yes atraumatic Ears: hearing grossly normal bilaterally and external ears normal Eyes General: appearance normal, both eyes and all related structures Eyelids: Yes eyelids normal Sclerae: sclerae normal EOM: EOMs intact bilaterally Neck Neck: Yes normal visual inspection and Yes no lymphadenopathy Lymphatic: no lymphadenopathy noted Chest Chest palpation & inspection: normal inspection of the chest Resp Effort & Inspection: normal respiratory effort, able to speak in complete senten brennan, no audible wheezes, no cough, no stridor, not tachypneic, no tripod positioning, no use of accessory muscles and prolonged expiratory phase Auscultation: clear to auscultation bilaterally Cardio Jugular venous distension: no JVD Rate: regular rate Rhythm: regular rhythm Skin Other: warm, dry General skin exam: no rashes or lesions noted Neuro General: patient oriented x3 Cranial nerves: Yes Normal hearing present Cognition (Neuro): normal cognition Gait exam (Neuro): Normal gait present Extrem General: Yes normal to inspection, Yes capillary refill normal, Yes no clubbing, cyanosis or edema and Yes no pedal edema Psych Appearance: grossly normal and well kempt Speech and movement: Normal speech and movement present and Clear speech present Affect: normal affect Attitude: cooperative Thought process: Normal thought process present Thought content: Normal thought content present Insight: Good insight present (Psych) Judgement: Good judgement present (Psych) Results Reviewed Results Reviewed: Results - Allergy Testing (Blood): Positive for multiple allergens, including mold (high), dust, elm tree, walnut tree, cottonwood tree, maple tree, cedar tree, birch tree, kerline tree, oak tree, cat, dog, mouse, and cockroach. IgE 125. - Eosinophil Count: Reported to be within normal range in the past. - Breathing Test: Consistent with moderate to severe asthma. - Pending Tests: An echo is scheduled for April 13. Assessment & Plan Assessment & Plan (1) Asthma: Code(s): J45.909 - Unspecified asthma, uncomplicated Category: Medical Qualifiers: Asthma severity: moderate Asthma persistence: persistent Asthma complication type: uncomplicated Qualified Code(s): J45.40 - Moderate persistent asthma, uncomplicated (2) Dyspnea: Code(s): R06.00 - Dyspnea, unspecified Category: Medical Qualifiers: Dyspnea type: unspecified Qualified Code(s): R06.00 - Dyspnea, unspecified (3) Environmental allergies: Code(s): Z91.09 - Other allergy status, other than to drugs and biological substances Category: Medical Plan Reviewed the patient's extensive allergy test results, explaining that his multiple environmental allergies, particularly to mold and dust, are significant triggers for his asthma. His asthma remains uncontrolled despite maximal inhaler therapy with Breo and Spiriva, as he still requires daily albuterol. Recommended initiating treatment with Xolair, a biologic injection. Explained that it targets the allergic pathway that leads to asthma flares. The planned dose will be 225 mg every two weeks. Informed him that the injections will be administered in a hospital's short stay unit, where he will be monitored for two hours after the first injection due to the risk of anaphylaxis. He has a current rx for Epi- pen.The patient expressed understanding, and we plan to follow up in 8 weeks to assess his response to Xolair. All questions were answered and patient is in agreement of plan. Patient Instructions - Continue taking your Breo and Spiriva inhalers every day as prescribed. - Use your albuterol inhaler or your nebulizer machine if you feel short of breath. - We are starting the process for a new injection medication called Xolair. - Our nurse will call you to get it approved, and then the hospital will call to schedule your appointments. - Your injections will be given at the hospital, and you will need to wait for two hours afterward the first injection for observation. - Continue taking Zyrtec for your allergies and using your nasal spray. - If using a humidifier at home, make sure to clean it often and use distilled water to prevent mold growth. - When going outside in cold weather, try wearing a scarf over your mouth and nose to warm the air you breathe in. - Make sure to go to your heart ultrasound appointment on April 13. - Follow up with your primary care doctor about your near syncopal episodes - Call our office if your breathing gets worse. - We will see you back in our office in about 8 weeks. Patient was informed and verbally consented to the use of an ambient scribe for clinic note documentation during this visit. Coding Level of Care Code Est Pt Level 4 (62530) Complex visit Add On G2211 Diagnoses Moderate persistent asthma without complication J45.40 Asthma severity: moderate Asthma persistence: persistent Asthma complication type: uncomplicated Dyspnea, unspecified type R06.00 Dyspnea type: unspecified Environmental allergies Z91.09
[2025-03-20 10:29] VITALS: BP 128/76; PULSE 79; O2SAT 98; BMI 31.5
== END 2025-03-20 10:56 | disposition home or self-care (01) ==
PROVIDERS: PCP Nurse Practitioner Family; Visit Provider Nurse Practitioner Family
DX: J45.40 Moderate persistent asthma, uncomplicated (principal); R06.00 Dyspnea, unspecified; Z91.09 Other allergy status, other than to drugs and biological substances
CPT/HCPCS: 99214

== ENCOUNTER → 2025-03-20 10:26 | Outpatient (BNVA) | payer OTHER, SELFPAY | PROVIDERS: PCP Nurse Practitioner Family; Visit Provider Nurse Practitioner Family | DX: J45.40 Moderate persistent asthma, uncomplicated (principal); R06.02 Shortness of breath; Z91.09 Other allergy status, other than to drugs and biological substances; R06.00 Dyspnea, unspecified; Z79.899 Other long term (current) drug therapy | CPT/HCPCS: 99212 ==

== ENCOUNTER 2025-04-03 13:07 | Outpatient (AMB) | payer OTHER, SELFPAY ==
--- NOTE | 2025-04-03 13:10 | MHC.OFFVISPS ---
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 Allergies penicillin V Allergy (Intermediate, Verified 03/20/25 10:31) rash Medication List - Last Reconciled 04/03/25 by Jacquelyn Cleveland APRN acetaminophen (Tylenol Extra Strength) 1,000 mg (2 x 500 mg) PO Q6H PRN albuterol sulfate 90 mcg/actuation 2 puffs inhalation Q4-6H PRN albuterol sulfate 2.5 mg (3 mL) inhalation Q4-6H PRN azelastine intranasal buspirone 5 mg PO BID fluticasone furoate-vilanterol 200-25 mcg/dose (Breo Ellipta) 1 inh inhalation DAILY hydroxyzine HCl 25 mg orally Take one tablet daily if needed for anxiety and take 1-2 before bedtime as needed PRN; 30 days melatonin 3 mg PO BEDTIME PRN miscellaneous medical supply (Blood Pressure Cuff) blood pressure checks daily and as needed large cuff please omeprazole 40 mg PO DAILY 90 days oxymetazoline 0.05% (Afrin (oxymetazoline)) 2 sprays intranasal Q12H PRN 3 days [Pentadeca Arginate (Pda) 500 mcg PO DAILY] sucralfate 10 mL PO BID testosterone cypionate 140 mg IM QWEEK tiotropium bromide 1.25 mcg/actuation (Spiriva Respimat) 2 puffs inhalation DAILY HPI- Psychiatric Chief Complaint: consultation HPI Narrative: pt referred by PCP because he was off psychiatric meds and now wants to restart. Pt says he has been taking the hydroxyzine for anxiety as needed and it helps; he never started the buspar; He has seen sleep medicine and had a work up for allergies; he has learned that he has a large number of things thta he is allergic to, both foods and environmental allergens; he is getting treatmen for that; he also saw sleep medicine and an ENT; he is working on getting better sleep. he reports mood better when he sleeps well. He continues to work and be able to manage ADLS despite low energy and poor sleep. He expresses hope now that he is getting treatment for sleep, allergies, and SOB and fatigue (both of which he beleieves are from the allergens). He denies SI or HI Past Psychiatric History: CC for therapy 1 session. no I[facility] Subjective Subjective Medication Compliance: Yes Side effects from medications: No Review of Systems Medical Review of Systems: unchanged Mental Status Exam Mental Status Exam Patient Appearance: Well Grooomed and Appropriate Patient Orientation: Person, Place, Time and Situation Level of Consciousness: Awake, Appropriate and Restless Patient Behavior: Appropriate, Restless and Distractible Mood Description: Anxious Affect Description: Anxious Patient Cognition Impaired: No Ability to Follow Directions: Good Speech Pattern: Clear and Appropriate Memory Description: Intact Hallucinations: None Delusions: Not Present Thought Process: Intact and Goal Oriented Thought Content: positive for Intact and positive for Goal Oriented Judgement: Fair Assessment and Plan Assessment & Plan (1) CHARLEEN (generalized anxiety disorder): Status: Acute Code(s): F41.1 - Generalized anxiety disorder (2) ADHD (attention deficit hyperactivity disorder): Status: Acute Qualifiers: Attention deficit-hyperactivity disorder type: predominantly inattentive Qualified Code(s): F90.0 - Attention-deficit hyperactivity disorder, predominantly inattentive type Code(s): F90.9 - Attention-deficit hyperactivity disorder, unspecified type Plan Review of lab results review of provider notes start buspar 5 mg BID restart vyvanse return in 8 weeks Medications: New lisdexamfetamine (Vyvanse) Partial Fill upon patient request. 20 mg PO QAM 60 caps 0RF 60 days F90.0 - Attention-deficit hyperactivity disorder, predominantly inattentive type Refilled hydroxyzine HCl 25 mg orally Take one tablet daily if needed for anxiety and take 1-2 before bedtime as needed PRN; 90 tabs 1RF anxiety 30 days buspirone 5 mg PO BID 60 tabs 2RF Counseling and coordination of Care Pt. Self Management counseling: General coping skills and Problem solving Medication management counseling: Effectiveness, Side effects, Dosing range, Duration, Drug interaction and Adherence Diagnosis and Prognosis Counseling: Accuracy of diagnosis, Prognosis over time, Impact of diagnosis on life functions and Adequacy of current interventions Details: I spent 45 minutes reviewing the record, seeing the patient and documenting in the medical record. Counseling provided to the patient/caregiver as outlined below. Addressed patient/caregiver concerns regarding current medication regime including effective adherence. Addressed patient/caregiver concerns regarding diagnosis and prognosis including accuracy of diagnosis, prognosis over time, impact of diagnosis. Addressed patient/caregiver concerns regarding impact of recent stressors. 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 Mother Hypertension Maternal Grandfather Diabetes Stroke Other Anemia Social History Household Members: Friend(s) Housing: Apartment Are you a primary geriatric personal care aide to a significant other at home: No Do you presently have visiting nurse or other home services: No Alcohol intake: never Patient Tobacco Use Status: Never used Tobacco e-Cigarette/Vaping Use: Never Used Second Hand Smoke Exposure: No service: No Current occupational status: employed Current occupation: [employer] Cognitive needs: No Hearing needs: No Vision needs: No Social History: Patient is single he lives with his mother and his 20-year-old brother 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 He was unemployed until 2 years ago when he decided to try to get a job. Substance History: No substance use Trauma History: Diagnosed with Crohn's disease as a child Coding Level of Care Code Est Pt Level 5 (03415) Diagnoses CHARLEEN (generalized anxiety disorder) F41.1 Attention deficit hyperactivity disorder (ADHD), predominantly inattentive type F90.0 Attention deficit-hyperactivity disorder type: predominantly inattentive
== END 2025-04-03 13:23 | disposition home or self-care (01) ==
LOC: HO.HOP 13:07
PROVIDERS: PCP Nurse Practitioner Family; Visit Provider Clinical Nurse Specialist Psychiatric/Mental Health
DX: F41.1 Generalized anxiety disorder (principal); F90.0 Attention-deficit hyperactivity disorder, predominantly inattentive type
CPT/HCPCS: 99215

== ENCOUNTER → 2025-04-03 13:07 | Outpatient (BNVA) | payer OTHER, SELFPAY | PROVIDERS: PCP Nurse Practitioner Family; Visit Provider Clinical Nurse Specialist Psychiatric/Mental Health | DX: F41.1 Generalized anxiety disorder (principal); F90.0 Attention-deficit hyperactivity disorder, predominantly inattentive type | CPT/HCPCS: 99212 ==